=== PATIENT | female | born 1960 | race Caucasian/White ===

== ENCOUNTER → 2017-05-18 16:05 | Outpatient (CLI) | payer MEDICAID, SELFPAY | PROVIDERS: Family Provider Family Medicine; PCP Family Medicine; Visit Provider Obstetrics & Gynecology | DX: R30.0 Dysuria (principal) | CPT/HCPCS: 87086; 87088 ==

== ENCOUNTER → 2017-05-23 08:40 | Outpatient (CLI) | payer MEDICAID, SELFPAY ==
[2017-05-23 10:22] LABS: AST(SGOT) 52 U/L (15-37); Alanine Aminotransfer ALT/SGPT 73 U/L (13-56); Albumin, Serum 3.2 g/dL (3.2-5.0); Alkaline Phosphatase 75 U/L (45-117); Bilirubin, Direct 0.28 mg/dL (0.00-0.30); Cholesterol 200 mg/dL (200); Globulin 3.9 g/dL (2.2-4.2); High Density Lipoprotein 48 mg/dL; Protein, Total 7.1 g/dL (6.4-8.2); Triglycerides 174 mg/dL; Very Low Density Lipoprotein 35 mg/dL (5-40)
== END ==
PROVIDERS: Family Provider Family Medicine; PCP Family Medicine; Visit Provider Nurse Practitioner Family
DX: E11.65 Type 2 diabetes mellitus with hyperglycemia (principal); Z95.5 Presence of coronary angioplasty implant and graft; Z82.49 Family history of ischemic heart disease and other diseases of the circulatory system; Z79.899 Other long term (current) drug therapy; I25.2 Old myocardial infarction; C85.90 Non-Hodgkin lymphoma, unspecified, unspecified site; I25.10 Atherosclerotic heart disease of native coronary artery without angina pectoris; I10 Essential (primary) hypertension; E78.5 Hyperlipidemia, unspecified
CPT/HCPCS: 36415; 80061; 80076

== ENCOUNTER → 2017-11-23 07:44 | Outpatient (CLI) | payer MEDICAID, SELFPAY ==
[2017-11-23 08:17] LABS: Absolute Lymphocyte Count 2.86 X10^3/ul (0.83-4.51); Absolute Neutrophil Count 3.8 X10^3/uL (2.0-7.7); Basophil# 0.04 X10^3/uL; Basophil% 0.5 % (0-1); Eosinophil# 0.33 X10^3/uL; Eosinophils% 4.3 % (0-5); Hematocrit 43.7 % (37-47); Hemoglobin 15.1 g/dl (12.0-15.0); Lymphocyte # 2.86 X10^3/ul (4.0); Lymphocyte % 37.5 % (19-41); Mean Corp Hgb Conc 34.6 g/gl (32-36); Mean Corpuscular Hgb 30.6 pg (27.0-32.0); Mean Corpuscular Volume 88.5 fL (81-99); Mean Platelet Vol. 11.6 fl (6.2-12.0); Monocyte# 0.54 X10^3/uL; Monocyte% 7.1 % (0-10); Neutrophil # 3.82 X10^3/uL (2.7-7.7); Neutrophil % 50.1 % (47-70); Platelet Count 117 K/mm3 (150-450); RBC Distribution Width CV 12.9 % (11.6-14.6); RBC Distribution Width SD 41.8 fl (35.1-43.9); Red Blood Count 4.94 M/mm3 (4.2-5.4); White Blood Count 7.6 K/mm3 (4.4-11.0)
[2017-11-23 08:22] LABS: POSITIVE COUNT NO; POSITIVE DIFFERENTIAL NO; POSITIVE MORPHOLOGY NO
[2017-11-23 08:40] LABS: ALB/GLOB Ratio 0.8 RATIO (0.9-2.4); AST(SGOT) 20 U/L (15-37); Alanine Aminotransfer ALT/SGPT 37 U/L (13-56); Albumin, Serum 2.9 g/dL (3.2-5.0); Alkaline Phosphatase 72 U/L (45-117); Anion Gap 8 (5-15); BUN 18 mg/dL (7-18); BUN/Creat Ratio 31.4 RATIO (10-20); Calcium,Total 9.1 mg/dL (8.5-10.1); Chloride 103 mmol/L (98-107); Cholesterol 194 mg/dL (200); Creatinine, Serum 0.57 mg/dL (0.55-1.02); EST Glomerular Filtration Rate 115 mL/min (>60); Est Glom Filt Rate - Afr Amer 139 mL/min (>60); Globulin 3.7 g/dL (2.2-4.2); Glucose 134 mg/dL (74-106); High Density Lipoprotein 50 mg/dL; Potassium 3.8 mmol/L (3.5-5.1); Protein, Total 6.6 g/dL (6.4-8.2); Sodium Level 140 mmol/L (136-145); Triglycerides 128 mg/dL; Very Low Density Lipoprotein 26 mg/dL (5-40)
[2017-11-23 09:03] LABS: Microalbumin:Creatinine Ratio 602.6 mg/g CRE (<30 mg/g CRE)
[2017-11-23 11:00] LABS: Hemoglobin A1c 12.4 % (4.2-6.3)
== END ==
PROVIDERS: Family Provider Family Medicine; PCP Family Medicine; Referring Provider Family Medicine; Visit Provider Family Medicine
DX: E11.65 Type 2 diabetes mellitus with hyperglycemia (principal); E87.6 Hypokalemia; I10 Essential (primary) hypertension; R53.83 Other fatigue
CPT/HCPCS: 36415; 80053; 80061; 82043; 82570; 83036; 85025

== ENCOUNTER → 2018-06-25 06:49 | Outpatient (CLI) | payer MEDICAID, SELFPAY ==
[2018-05-24 15:08] VITALS: BMI 30.9
--- NOTE | 2018-06-25 09:04 | STRESSREP ---
Stress Test Report Exercise myocardial perfusion stress test 58-year-old lady with a history of chest pain. Patient is status post coronary artery bypass surgery. Stress protocol: Resting EKG demonstrates normal sinus rhythm with a rate of [address]-T wave changes are noted resting blood pressures 148/102 mmHg. The patient exercised according to regular Brendon protocol for total duration of 6 minutes. The maximum heart rate attained was 136 bpm which was 84% of maximum predicted heart rate the maximum workload was 7 metabolic equivalents. At rest there were no ST or T wave changes noted suggest ischemia at peak exercise there was T wave inversions noted in the inferolateral leads with occasional premature ventricular complexes noted. The resting blood pressure was 148/102 with a final blood pressure 192/92 mmHg. No clinical angina was noted the test was terminated due to fatigue. Myocardial perfusion protocol. 13.8 mCi of technetium 99m sestamibi was injected at rest. The patient exercised according to regular Brendon protocol for total duration of 6 minutes at peak exercise 42.7 mCi of technetium 99m sestamibi was injected stress images were obtained stress and rest images were reconstructed in comparing the short axis vertical and horizontal long axis. Gated images were also obtained per Perfusion SPECT analysis: Review of the stress images demonstrate a normal cardiac silhouette size. There is mildly reduced perfusion noted in the mid anterior wall on the stress images. The resting images demonstrate improvement suggestive of mid anterior ischemia present. There is also a small area in the inferior basal wall with reduced perfusion on the stress images which appears to improve on the resting images suggestive of basal inferior ischemia. Patient has a known history of right coronary artery and diagonal vessel not being bypassed. Gated SPECT analysis: The gated ejection fraction is noted to be 48%. Conclusion: Exercise myocardial perfusion stress test with evidence of mild mid anterior ischemia and mild. Basal inferior ischemia. Good functional capacity.
== END ==
PROVIDERS: Family Provider Family Medicine; PCP Family Medicine; Referring Provider Internal Medicine Cardiovascular Disease; Visit Provider Internal Medicine Cardiovascular Disease
DX: Z95.1 Presence of aortocoronary bypass graft (principal)
CPT/HCPCS: 78452; 93017; A9500; A4216

== ENCOUNTER → 2018-07-20 11:57 | Outpatient (CLI) | payer MEDICAID, SELFPAY ==
[2018-07-19 15:21] VITALS: BMI 31.0
--- NOTE | 2018-07-20 12:06 | RAD_ITS ---
STUDY: X-RAY CHEST REASON FOR EXAM: Female, 58 years old. Preop heart catheter. TECHNIQUE: PA and lateral views of the chest. COMPARISON: Portable AP upright chest radiograph 2016. FINDINGS: The lungs are clear and expanded. There is no demonstrated pleural abnormality. Normal size heart. Sternal cerclage wires and vascular clips are present from a prior sternotomy and coronary artery bypass graft procedure (CABG). Normal mediastinum and tara. Normal visualized pulmonary arteries. Normal visualized aortic arch and descending thoracic aorta. Mildly prominent kyphosis and stable mild dextroscoliosis of the lower most thoracic spine. Normal visualized ribs, clavicles, and shoulders. There is no demonstrated abnormality of the visualized soft tissue structures of the upper abdomen. RAD/Chest PA and Lateral IMPRESSION: Prior median sternotomy and CABG. No acute cardiopulmonary disease. Electronically Signed: Vikas Florence MD at 15:01 EDT , Service support ,
[2018-07-20 12:36] LABS: Absolute Lymphocyte Count 2.99 X10^3/ul (0.83-4.51); Absolute Neutrophil Count 3.6 X10^3/uL (2.0-7.7); Basophil# 0.04 X10^3/uL; Basophil% 0.5 % (0-1); Eosinophil# 0.26 X10^3/uL; Eosinophils% 3.5 % (0-5); Hematocrit 46.6 % (37-47); Hemoglobin 15.9 g/dl (12.0-15.0); Lymphocyte # 2.99 X10^3/ul (4.0); Lymphocyte % 40.5 % (19-41); Mean Corp Hgb Conc 34.1 g/gl (32-36); Mean Corpuscular Hgb 30.1 pg (27.0-32.0); Mean Corpuscular Volume 88.3 fL (81-99); Monocyte# 0.49 X10^3/uL; Monocyte% 6.6 % (0-10); Neutrophil % 48.8 % (47-70); Platelet Count 141 K/mm3 (150-450); RBC Distribution Width CV 13.3 % (11.6-14.6); RBC Distribution Width SD 42.8 fl (35.1-43.9); Red Blood Count 5.28 M/mm3 (4.2-5.4); White Blood Count 7.4 K/mm3 (4.4-11.0)
[2018-07-20 12:37] LABS: POSITIVE COUNT NO; POSITIVE DIFFERENTIAL NO; POSITIVE MORPHOLOGY NO
[2018-07-20 12:49] LABS: Anion Gap 4 (5-15); BUN 20 mg/dL (7-18); BUN/Creat Ratio 28.6 RATIO (10-20); Calcium,Total 9.2 mg/dL (8.5-10.1); Chloride 101 mmol/L (98-107); EST Glomerular Filtration Rate 91 mL/min (>60); Est Glom Filt Rate - Afr Amer 110 mL/min (>60); Glucose 380 mg/dL (74-106); Potassium 4.4 mmol/L (3.5-5.1); Sodium Level 136 mmol/L (136-145)
== END ==
PROVIDERS: Family Provider Family Medicine; PCP Family Medicine; Referring Provider Physician Assistant Medical; Visit Provider Physician Assistant Medical
DX: I25.10 Atherosclerotic heart disease of native coronary artery without angina pectoris (principal); I10 Essential (primary) hypertension
CPT/HCPCS: 36415; 71046; 80048; 85025

== ENCOUNTER 2018-07-26 07:07 | Day surgery (SDC) | payer MEDICAID, SELFPAY ==
[2018-05-24 15:08] VITALS: BMI 30.9
--- NOTE | 2018-07-19 04:11 | HP_ITS ---
ADDENDUM by Yesica Narvaez on 07/19/18 at 1611 Addendum entered and electronically signed by FLO Long 07/19/18 16:11: HPI History of Present Illness Surgical H&P: Yes Details: This is a 58-year-old female that presents here today for an updated history and physical for a heart catheterization. She has a history of coronary artery disease with bypass surgery in 2003. She had an BAUM to the LAD and SVG to the left circumflex. Distal RCA and diagonal were not bypassed. She also has a history of hypertension, hyperlipidemia, non-Hodgkin's lymphoma and diabetes Pt sts that since her stress test she thinks that she has had a chest heaviness. She would not necessarily describe this as chest pain. She does not have any worsening SOB. She is active. She does not have any palpitations. She does occasionally have lightheadedness it is difficult for her to say of this is related to low BS or low BP. She has used a BP cuff she thinks that it is low but her BP is high today. In reviewing her medications it appears she is not on losartan or atorvastatin. Assessment & Plan 1. Atherosclerosis of [place] coronary artery of [place] heart without angina pectoris I25.10 CABG x 2 BAUM to LAD and SVG to lateral CX 04/10/2013 Plan - FLO Long Patient did have an abnormal stress test. She is in the process of being scheduled for a heart catheterization to reevaluate this. She will continue with aggressive medical management Orders Orders: Basic Metabolic Profile (BMP) Today CBC W/Diff, Automated Today Chest PA and Lateral Today 2. Essential hypertension I10 Plan - FLO Long Patient is concerned about low and high blood pressure readings. For now we will have her monitor her blood pressure readings. It appears that she is not taking losartan as she should be. Have asked her to call us with an update on what her blood pressure readings are and then we will go ahead and reevaluate this. Patient Instructions - FLO Long Monitor your BP and keep a log of what it is Orders Orders: Basic Metabolic Profile (BMP) Today CBC W/Diff, Automated Today Chest PA and Lateral Today 3. Pure hypercholesterolemia E78.00 Plan - FLO Long It appears that patient is not on cholesterol-lowering medication. Have asked her to go back to her house to make sure that it is not in her other bag that she has at home. If she is not taking we will reevaluate the. Patient Instructions - FLO Long Check to see if you are on a cholesterol lowering medication Plan Detail Additional Comments - FLO Long Patient is scheduled to undergo a heart catheterization with Dr. Pritchard on July 26, 2018. Thank you for allowing us to participate in patient's plan of care, if you have any questions please do not hesitate to call. This note was generated using a voice recognition system and there may be incorrect words, spelling or punctuation errors that were not noted when reviewing the office note prior to saving. Follow Up 1 Month (MMM) 07/19/18 (please print labs and CXR for heart cath so she can have done today, thanks) 07/19/18 1611 <Electronically signed by Yesica ROSSI> Date Yesica Narvaez cc: Fara Bernal DO ~* Signed HPI HPI History of Present Illness Details: This is a 58-year-old female that presents here today for an updated history and physical for a heart catheterization. She has a history of coronary artery disease with bypass surgery in 2003. She had an BAUM to the LAD and SVG to the left circumflex. Distal RCA and diagonal were not bypassed. She also has a history of hypertension, hyperlipidemia, non-Hodgkin's lymphoma and diabetes Pt sts that since her stress test she thinks that she has had a chest heaviness. She would not necessarily describe this as chest pain. She does not have any worsening SOB. She is active. She does not have any palpitations. She does occasionally have lightheadedness it is difficult for her to say of this is related to low BS or low BP. She has used a BP cuff she thinks that it is low but her BP is high today. In reviewing her medications it appears she is not on losartan or atorvastatin. 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 Accompanied by: None Is patient in pain?: No Allergies Penicillins Allergy (Verified 07/19/18 15:23) Unknown lisinopril Adverse Reaction (Intermediate, Verified 07/19/18 15:23) Other hydrocodone bitartrate [From Vicodin] Adverse Reaction (Verified 07/19/18 15:23) Unknown grasses and tree pollen Allergy (Intermediate, Uncoded 03/06/18 15:19) upper respiratory symptoms Medications Aspirin [Aspirin, Baby] 81 mg PO DAILY@0800 01/14/14 [History Confirmed 07/19/18] Insulin Detemir [Levemir (BKC)] 70 units SC BID 01/14/14 [History Confirmed 07/19/18] Magnesium Oxide [Magnesium] 400 mg PO DAILY 08/30/16 [History Confirmed 07/19/18] carvedilol 25 mg tablet 25 mg PO BID 05/19/17 [History Confirmed 07/19/18] insulin aspart (U-100) 100 unit/mL (3 mL) subcutaneous pen 30 unit SC TID ml 05/19/17 [History Confirmed 07/19/18] metformin 1,000 mg tablet 1,000 mg PO BID 05/19/17 [History Confirmed 07/19/18] mometasone-formoterol HFA 200 mcg-5 mcg/actuation aerosol inhaler 2 puff INHALATION BID PRN 05/19/17 [History Confirmed 07/19/18] cholecalciferol (vitamin D3) 50,000 unit capsule 50,000 unit PO .COMPLEX 05/23/17 [History Confirmed 07/19/18] Glipizide [Glucotrol Xl] 2.5 mg PO DAILY 08/31/17 [History Confirmed 07/19/18] cyclobenzaprine 5 mg tablet 5 mg PO TID PRN #30 tab 03/06/18 [Rx Confirmed 07/19/18] losartan 50 mg tablet 50 mg PO DAILY #90 tab 05/24/18 [Rx Confirmed 07/19/18] potassium chloride ER 20 mEq tablet,extended release(part/cryst) PO 30 Days #30 tab 07/19/18 [History Confirmed 07/19/18] PFSH Medical History History of deep venous thrombosis (DVT) of distal vein of left lower extremity (Chronic) Left subclavian vein thrombosis (Chronic) Hyperlipidemia (Chronic) History of non-ST elevation myocardial infarction (NSTEMI) (Chronic) Atherosclerotic heart disease of [place] coronary artery without angina pectoris (Chronic) History of non-Hodgkin's lymphoma (Chronic) Polycystic ovaries (Chronic) IBS (irritable bowel syndrome) (Chronic) HTN (hypertension) (Chronic) Hx of venous thrombosis and embolism (Chronic) Type II diabetes mellitus, uncontrolled (Chronic) Anemia (Acute) Arthritis (Acute) Diabetes (Acute) Incontinent of urine (Acute) Limb weakness (Acute) Shoulder pain (Acute) neck/back pain (Acute) Surgical History H/O coronary artery bypass surgery (Resolved 04/10/13) Family History Father , 65 Diabetes Hypertension cabg Mother , Age 65 Hypertension Renal failure Sister Cancer Sister Diabetes Cardiomegaly Social History Smoking Status: Never smoker alcohol intake: never ROS Const Const: Negative for fatigue, weakness, fever(s) or headache(s) Eyes Eyes: Negative for blind spots, loss of peripheral vision or transient loss of vision ENT ENT: Positive for dizziness; negative for headache(s), tinnitus or Nosebleed/epistaxis Cardio Palpitations: No Edema: None Muscle aches with walking: None Resp Respiratory: Negative for SOB with activity, SOB at rest, SOB orthopnea\SOB lying down or Cough GI GI: Negative nausea, vomiting, heartburn or vomiting blood/hematemesis : Negative for hematuria Musc Musc: Negative for muscle aches/ myalgia Neuro Neuro: Positive for dizziness and lightheadedness; negative for near syncope, syncope, orthostatic symptoms, headache(s) or weakness Tony Hematologic/Lymphatic: Negative for easy bleeding Endo Endo: Negative for fatigue Cardiology Exam Const Appearance: cooperative, no acute distress and well developed Orientation: alert, awake and oriented x3 Head Head: normocephalic and atraumatic Mouth: moist mucous membranes Eyes General: appearance normal, both eyes and all related structures Conjunctivae: conjunctivae normal Pupils: PERRL EOM: EOM intact bilaterally Neck Neck: normal visual inspection, no lymphadenopathy and no JVD Carotids: Negative bruit Neck Mass: Negative Neck mass Chest Chest inspection: normal inspection of the chest and symmetric chest movement Auscultation: Bilateral: Clear to Auscultation Cardio Palpation: normal PMI Rate: regular rate Rhythm: regular rhythm Heart sounds: S1 normal and S2 normal; negative rub, gallop or murmur GI GI: normal to inspection, soft, no hepatosplenomegaly and bowel sounds present; negative tender Neuro General: alert, awake, oriented x3, CN's II-XI intact bilaterally and moves all extremities Extremities Pulses: Normal: Right Posterior Tibial Pulse, Left Posterior Tibial Pulse, Right Radial Pulse, Left Radial Pulse Lower Extremity Edema: None: Bilateral Psych Psychological: normal affect Assessment & Plan 1. Atherosclerosis of [place] coronary artery of [place] heart without angina pectoris I25.10 CABG x 2 BAUM to LAD and SVG to lateral CX 04/10/2013 Plan Patient did have an abnormal stress test. She is in the process of being scheduled for a heart catheterization to reevaluate this. She will continue with aggressive medical management Orders Orders: Basic Metabolic Profile (BMP) Today CBC W/Diff, Automated Today Chest PA and Lateral Today 2. Essential hypertension I10 Plan Patient is concerned about low and high blood pressure readings. For now we will have her monitor her blood pressure readings. It appears that she is not taking losartan as she should be. Have asked her to call us with an update on what her blood pressure readings are and then we will go ahead and reevaluate this. Patient Instructions Monitor your BP and keep a log of what it is Orders Orders: Basic Metabolic Profile (BMP) Today CBC W/Diff, Automated Today Chest PA and Lateral Today 3. Pure hypercholesterolemia E78.00 Plan It appears that patient is not on cholesterol-lowering medication. Have asked her to go back to her house to make sure that it is not in her other bag that she has at home. If she is not taking we will reevaluate the. Patient Instructions Check to see if you are on a cholesterol lowering medication Plan Detail Additional Comments Patient is scheduled to undergo a heart catheterization with Dr. Pritchard on July 26, 2018. Thank you for allowing us to participate in patient's plan of care, if you have any questions please do not hesitate to call. This note was generated using a voice recognition system and there may be incorrect words, spelling or punctuation errors that were not noted when reviewing the office note prior to saving. Follow Up 1 Month (MMM) 07/19/18 (please print labs and CXR for heart cath so she can have done today, thanks) Coding Level of Care Code Off vis,est,level 3 Diagnoses Atherosclerosis of [place] coronary artery of [place] heart without angina pectoris I25.10 ??[place] vs. transplanted heart: [place] heart Essential hypertension I10 ??Hypertension type: essential hypertension Pure hypercholesterolemia E78.00 ??Hyperlipidemia type: pure hypercholesterolemia Coding Level of Care Code Off vis,est,level 3 Diagnoses Atherosclerosis of [place] coronary artery of [place] heart without angina pectoris I25.10 ??[place] vs. transplanted heart: [place] heart Essential hypertension I10 ??Hypertension type: essential hypertension Pure hypercholesterolemia E78.00 ??Hyperlipidemia type: pure hypercholesterolemia Supplemental Info Supplemental Information Stress test in 2019: Exercise myocardial perfusion stress test with evidence of mild mid anterior ischemia and mild. Basal inferior ischemia. Good functional capacity. Labs LDL Cholesterol 118 mg/dL (0-130) 11/23/17 HDL Cholesterol 50 mg/dL (40-) 11/23/17 Triglycerides 128 mg/dL (-199) 11/23/17 VLDL Cholesterol 26 mg/dL (5-40) 11/23/17 Diagnostics Electrocardiogram 12/26/16 Stress Test Nuclear Medicine 06/25/18 Stress Test 06/25/18 Chest X-Ray 12/26/16 07/19/18 1611 <Electronically signed by Yesiac ROSSI> Date Yesica ROSSI
[2018-07-19 15:21] VITALS: BMI 31.0
[2018-07-25 09:29] VITALS: BMI 31.0
--- NOTE | 2018-07-26 09:36 | CL.D_ITS ---
Patient Name: JOSH GRAY Study Date: 07/26/2018 Performing: Sheng Pritchard MD Ht: 64.17 inches 163 cm : 1960 Wt: 180.78 lbs 82 kg Age: 58 Gender: female BSA: 1.88 PROCEDURE(S) PERFORMED [id number]/COR/LV/CABG CLINICAL PROFILE AND INDICATIONS Indications: Suspected CAD Heart Failure: None Stress/Imaging Date: 06/25/2018 CAD Presentations: Stable angina. CONCLUSIONS Severe disease involving the left anterior descending artery, circumflex artery, and right coronary a rtery. Bypass graft to the left anterior descending artery patent but with severe distal disease and bypass graft to the circumflex artery patent. RECOMMENDATIONS Medical therapy DESCRIPTION OF PROCEDURE The patient arrived to the procedure lab. The risks and benefits of the procedure as well as a full d escription of our services here and current unavailability of surgical backup were fully explained to the patient and/or their significant other prior to the catheterization. The Timeout was completed, verifying the correct patient and procedure. The patient's procedural site was prepped and draped in the usual fashion. Local anesthetic was given subcutaneously to left radial region with Lidocaine 2%. Using a modified Seldinger technique, arterial access was obtained via the left radial artery, a 6Fr sheath was inserted. Left internal mammary artery graft to the LAD selective angiography was perfor med in multiple views using a 5 Fr. IM catheter. Left Coronary Artery selective angiography was perfo rmed in multiple views using a 5 Fr. JL4 catheter. Right Coronary Artery selective angiography was th en performed in multiple views using a 5 Fr. 3DRC (Benito) catheter. Saphenous Vein graft to the Circumflex selective angiography was performed in multiple views using a 5 Fr. 3DRC (Markus olivo) catheter. Left Ventriculography was performed in BOOTHE projection using a 5 Fr. Pigtail catheter . LV to AO pullback pressures were then recorded.The arterial sheath was pulled and a TR Band was jesus lied for hemostasis 11cc air CORONARY ANGIOGRAPHY DOMINANCE: Right Dominant LEFT HEART ASSESSMENT Left Ventricular Ejection Fraction: by LV Gram 60 % Normal Left Ventricular systolic function LEFT MAIN: 50 % Stenosis LEFT ANTERIOR DESCENDING ARTERY: PROX LAD: is occluded DISTAL LAD: Diffusely diseased up to 70 % CIRCUMFLEX ARTERY: MID CIRC: is occluded RIGHT CORONARY ARTERY: OSTIAL RCA: is occluded GRAFTS: BAUM graft to the Mid LAD is patent Saphenous Vein graft to the CIRC is patent COLLATERAL FLOW: Collateral flow from Left to Right COMPLICATIONS No Complications PROCEDURE MEDICATIONS Versed 1 mg IV Fentanyl 50 mcg IV Oxygen: 2 L/min via nasal cannula SUMMARY OF HEMODYNAMIC DATA Time AIR REST ECG 07:29:16 AO 123/66 (90) SA 08:36:06 LV 137/3, 8 09:00:22 LV 135/-1, 9 09:01:22 LV 142/1, 14 09:01:28 LVp 143/1, 14 09:01:31 AOp 142/68 (97) 09:01:36 Signed By Sheng Pritchard MD On 07/26/2018 9:35:28 AM Sheng Pritchard MD
== END 2018-07-26 11:40 | disposition home or self-care (01) ==
LOC: CLSP 07:08
PROVIDERS: Family Provider Family Medicine; PCP Family Medicine; Referring Provider Internal Medicine Cardiovascular Disease; Visit Provider Internal Medicine Cardiovascular Disease
DX: I25.10 Atherosclerotic heart disease of native coronary artery without angina pectoris (principal); E11.9 Type 2 diabetes mellitus without complications; I10 Essential (primary) hypertension; E78.5 Hyperlipidemia, unspecified; E28.2 Polycystic ovarian syndrome; K58.9 Irritable bowel syndrome, unspecified; D64.9 Anemia, unspecified; M19.90 Unspecified osteoarthritis, unspecified site; R32 Unspecified urinary incontinence; Z88.0 Allergy status to penicillin; Z88.5 Allergy status to narcotic agent; Z79.82 Long term (current) use of aspirin; Z79.4 Long term (current) use of insulin; Z79.899 Other long term (current) drug therapy; I25.2 Old myocardial infarction; Z86.718 Personal history of other venous thrombosis and embolism; Z85.72 Personal history of non-Hodgkin lymphomas; Z95.1 Presence of aortocoronary bypass graft
CPT/HCPCS: 93459; 99152; 99153; J7040; C1769; C1894; Q9967

== ENCOUNTER 2018-12-13 12:53 | Inpatient (IN) | payer MEDICAID, SELFPAY ==
[2018-10-15 10:59] VITALS: BMI 30.9
[2018-12-13] VITALS (12 sets, daily range): BP systolic 128–203; BP diastolic 81–143; PULSE 78–96; RESP 13–22; TEMP 36.7–37; O2SAT 93–100; BMI 29.3; BMI 28.6; BMI 28.7
--- NOTE | 2018-12-13 13:00 | EKG12_ITS ---
Test Reason : STROKE Blood Pressure : / mmHG Vent. Rate : 087 BPM Atrial Rate : 087 BPM P-R Int : 152 ms QRS Dur : 092 ms QT Int : 374 ms P-R-T Axes : -06 -02 125 degrees QTc Int : 450 ms Normal sinus rhythm Nonspecific ST and T wave abnormality Inferior OH, age undetermined, cannot be excluded Abnormal ECG Confirmed by KIERA GAMEZ, KATIA ([id number]), research editor ALLEN VALDOVINOS ([id number]) on 12/17/2018 9:29:38 AM Referred By: Roosevelt Smith Confirmed By:KATIA QURESHI MD
--- NOTE | 2018-12-13 13:00 | RAD_ITS ---
STUDY: X-RAY CHEST REASON FOR EXAM: Female, 58 years old. History of stroke. TECHNIQUE: Single AP portable view of the chest. COMPARISON: Comparison is made with prior study dated July 20, 2018. FINDINGS: EKG electrodes are seen. The lungs are clear and expanded. There is no demonstrated pleural abnormality. Sternal cerclage wires and vascular clips are present from a prior sternotomy and coronary artery bypass graft procedure (CABG). Normal mediastinum and tara. Normal visualized pulmonary arteries. There is atherosclerotic tortuosity of the aortic arch and descending thoracic aorta. Normal visualized thoracic spine. Normal visualized ribs, clavicles, and shoulders. There is no demonstrated abnormality of the visualized soft tissue structures of the upper abdomen. RAD/Chest 1 View IMPRESSION: No acute abnormality is seen. Electronically Signed: William Hines, at 14:07 EDT , Service support ,
--- NOTE | 2018-12-13 13:00 | CT_ITS ---
STUDY: CT BRAIN WITHOUT CONTRAST REASON FOR EXAM: Female, 58 years old. Possible CVA. RADIATION DOSAGE (If Supplied By Facility): CTDIvol = ( 44.99 ) mGy, DLP = ( 762.36 ) mGycm TECHNIQUE: Transaxial CT imaging of the brain was performed without administration of intravenous contrast material. Individualized dose optimization techniques were used for this CT. COMPARISON: Comparison is made with prior study-October 26, 2014. FINDINGS: Normal soft tissue structures. Normal calvarium. There is mild cerebral atrophy with widening of the extra-axial spaces and ventricular dilatation. Since prior study, there is a 8.6 mm hypodensity in the right centrum semiovale. This most likely represents an old infarct. Normal basal ganglia and thalami. Normal brainstem. Normal cerebellum. There is no intracranial hemorrhage. There are no findings of an acute ischemic infarction. Normal visualized paranasal sinuses. CT/Brain/Head without Contrast IMPRESSION: Chronic involutional changes of the brain. Findings suggestive of very old focal infarct in the right centrum semiovale. N.B. : The above information has been verbally conveyed by William Hines to Adamaris Scott on 12/13/2018 13:21:52 (ET). Electronically Signed: William Hines, at 13:23 EDT , Service support ,
[2018-12-13 13:01] LABS: Bedside Glucose 478 mg/dL (70-110)
--- NOTE | 2018-12-13 13:01 | CT_ITS ---
STUDY: CTA HEAD AND NECK WITH CONTRAST REASON FOR EXAM: Female, 58 years old. Slurred speech. Dysarthria. History of non-Hodgkin's lymphoma. RADIATION DOSAGE (If Supplied By Facility): CTDIvol = ( 20.31 ) mGy, DLP = ( 710.19 ) mGycm TECHNIQUE: CT angiography was performed with a multi-detector CT scanner. Data acquisition was obtained from the skull base through the vertex following intravenous administration of IV 100mL [id number]-370 100. MIP images were reconstructed from the axial data set. Post-processing of the angiographic images was performed, with multiplanar reformation and 3D reconstruction. Individualized dose optimization techniques were used for this CT. COMPARISON: No relevant priors. FINDINGS: Normal bilateral petrous carotid arteries. There is calcified plaque formation of the right cavernous carotid artery, without a cross-sectional luminal stenosis. There is calcified plaque formation of the left cavernous carotid artery, without a cross-sectional luminal stenosis. Normal right A1 segments of the anterior cerebral artery. Normal left A1 segments of the anterior cerebral artery. Normal intact anterior communicating artery (ACOM). Normal bilateral A2 segments of the anterior cerebral arteries. Normal right M1 and M2 segments of the middle cerebral arteries, with a normal M1 bifurcation. Normal left M1 and M2 segments of the middle cerebral arteries, with a normal M1 bifurcation. Normal right posterior communicating artery (PCOM). Normal left posterior communicating artery (PCOM). Normal bilateral vertebral arteries. Normal basilar artery with a normal basilar bifurcation. The visualized bilateral superior cerebellar (SCA) arteries are normal. Normal bilateral P1, P2 and visualized P3 segments of the posterior cerebral arteries. There is no demonstrated aneurysm of the [place] of [place]. There is no demonstrated abnormality of the visualized brain. AORTIC ARCH: Normal visualized aortic arch. Normal origins of the brachiocephalic, left common carotid, and left subclavian arteries. RIGHT CAROTID ARTERIES: Normal right common carotid artery (CCA). Normal right common carotid bulb. There is moderate atherosclerotic plaque formation of the origin of the right internal carotid artery with an estimated stenosis of 50-69% stenosis. Normal visualized cervical portion of the right internal carotid artery. Normal origin of the right external carotid artery (ECA). LEFT CAROTID ARTERIES: Normal left common carotid artery (CCA). Normal left common carotid bulb. There is mild atherosclerotic plaque formation of the origin of the left internal carotid artery with less than 50% cross sectional diameter stenosis. Normal visualized cervical portion of the left internal carotid artery. Normal origin of the left external carotid artery (ECA). VERTEBRAL ARTERIES: Normal bilateral vertebral arteries. CT/CTA Head AND Neck W/ Contrast IMPRESSION: Findings in keeping with a less than 50% stenosis due to atherosclerotic plaques at the left carotid bifurcation. 50-69% narrowing at the origin of the right internal carotid artery due to calcified plaques. N.B. : The above information has been verbally conveyed by William Hines to Adamaris Scott on 12/13/2018 13:29:11 (ET). Electronically Signed: William Hines, at 13:30 EDT , Service support ,
--- NOTE | 2018-12-13 13:04 | NURSING ---
STROKE ALERT CALLED [phone]
--- NOTE | 2018-12-13 13:20 | ED.RN ---
dr. marion is on screen assessing patient.
[2018-12-13 13:31] LABS: Absolute Lymphocyte Count 2.44 X10^3/uL (0.83-4.51); Basophil# 0.07 X10^3/uL; Eosinophil# 0.18 X10^3/uL; Eosinophils% 2.5 % (0-5); Hematocrit 41.9 % (37-47); Hemoglobin 14.4 g/dL (12.0-15.0); Lymphocyte # 2.44 X10^3/ul (4.0); Lymphocyte % 33.3 % (19-41); Mean Corp Hgb Conc 34.4 g/dL (32-36); Mean Corpuscular Hgb 29.9 pg (27.0-32.0); Mean Corpuscular Volume 86.9 fL (81-99); Mean Platelet Vol. 12.2 fl (6.2-12.0); Monocyte# 0.56 X10^3/uL; Monocyte% 7.6 % (0-10); NRBC Flagged by Analyzer 0 % (0-5); Neutrophil # 4.04 X10^3/uL (2.7-7.7); Neutrophil % 55.1 % (47-70); Platelet Count 114 K/mm3 (150-450); RBC Distribution Width CV 12.5 % (11.6-14.6); RBC Distribution Width SD 39.4 fl (35.1-43.9); Red Blood Count 4.82 M/mm3 (4.2-5.4); White Blood Count 7.3 K/mm3 (4.4-11.0)
[2018-12-13] MEDS: 0.9% Normal Saline 1,000 ML 100 ML IV (13:34)
[2018-12-13 13:39] LABS: Prothrombin Time (Protime)PT. 13.3 SECONDS (11.7-14.9)
[2018-12-13 13:40] LABS: Partial Thromboplast Time 24.2 Seconds (24.1-36.2)
[2018-12-13 13:43] LABS: Anion Gap 8 (5-15); BUN 18 mg/dL (7-18); BUN/Creat Ratio 23.1 RATIO (10-20); Calcium,Total 8.9 mg/dL (8.5-10.1); Chloride 96 mmol/L (98-107); Creatinine, Serum 0.78 mg/dL (0.55-1.02); EST Glomerular Filtration Rate 80 mL/min (>60); Est Glom Filt Rate - Afr Amer 97 mL/min (>60); Estimated Creatinine Clearance 67.06 ml/min; Glucose 432 mg/dL (74-106); Potassium 3.9 mmol/L (3.5-5.1); Sodium Level 134 mmol/L (136-145)
--- NOTE | 2018-12-13 14:00 | ED.VISSUMM ---
- ER Visit Summary Date of Service: 12/13/18 Chief Complaint: [Slurred speech] History of Present Illness: The patient is a 58 F [presents to the emergency department with difficulty with her speech that she initially noticed may be around 9:30 AM. Patient states she had a client around 9:00 and did not notice any issue with her speech however around 930 she had another client and noted that she was slurring her words. Patient has at times hard time finding words to speak. She denies headache. Has some discomfort to her left eye. She denies any weakness or paresthesias. Patient does have history of diabetes, hypertension high cholesterol, and coronary artery disease. She denies recent falls or head injury. She denies recent illness. No prior stroke history.] Physical Examination: [HEENT-PERRLA, EOMI. Cranial nerves II through XII grossly intact. TMs clear. Mucous membranes moist. No adenopathy. Cardiovascular-regular rate and rhythm without murmur or ectopy Lungs-clear to auscultation, chest wall stable without crepitus or subcu emphysema Abdomen-normoactive bowel sounds, soft, nontender, no rebound or rigidity, no peritoneal signs. Neuro exam-NIH stroke scale of 1 for dysarthria. Dysarthria is subtle. No focal weakness noted. [id number] and heel underwood testing within normal limits, negative Romberg, negative for drift, fundi benign. Extremities-intact ?4, normal range of motion, normal pulses, atraumatic] Test Results: [CT scan of the brain without contrast was unremarkable. CTs of the head and neck obtained showed 50% stenosis left carotid and 50 to 79% right internal carotid. CBC with differential was unremarkable. Chemistries unremarkable. Glucose was elevated 432. Troponin was less than 0.15. EKG showed sinus rhythm with a ventricular rate of 87 bpm.] Emergency Department Course and Treatment: [Stroke team was called on patient arrival. Patient was evaluated by tele-stroke neurologist who agrees that patient is not a TPA candidate and that she has minimal deficit with an NIH of 1 and patient is beyond the 3-hour window for TPA.] Treatment Plan: [Admit for further work-up of stroke.] Disposition: [Admit] Impression: [CVA Hyperglycemia] This note was generated with [employer]ENTS HTIation software. It may contain incorrect words, spelling, and punctuation that were not noted in review of the chart prior to signing ED Disposition - Plan for ED Patient: Referrals: Fara Bernal DO [Primary Care Provider] -
--- NOTE | 2018-12-13 14:20 | NURSING ---
DR DUGAN IN ER
--- NOTE | 2018-12-13 14:37 | NURSING ---
PCU OBS CVA RITCHIE
--- NOTE | 2018-12-13 15:07 | HP.PCM_ITS ---
Problem List (1) CVA (cerebral vascular accident) Status: Suspected Qualifiers: CVA mechanism: unspecified Qualified Code(s): I63.9 - Cerebral infarction, unspecified History of Present Illness Date of Admission: 12/13/18 Chief Complaint: slurred speech. unsteadiness The patient is a 58 year old F who was in her normal state of health but today started feeling unsteady and was noted to have slurred speech. Symptoms persisted for several hours and she notified 1 of her superiors who directed the patient to the emergency room. Patient underwent a work-up in the emergency room that was unremarkable for any acute stroke. Patient did undergo a CT angiogram that showed 50 to 69% narrowing of the right internal carotid and 50% stenosis of the left internal carotid. Patient was evaluated by the [facility]-stroke who did not feel the patient required TPA. Patient is never had symptoms like this before. Symptoms are slowly improving. 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 Hyperlipidemia (Chronic) History of non-ST elevation myocardial infarction (NSTEMI) (Chronic) 04/08/2016 History of non-Hodgkin's lymphoma (Chronic) Polycystic ovaries (Chronic) IBS (irritable bowel syndrome) (Chronic) Hx of venous thrombosis and embolism (Chronic) Type II diabetes mellitus, uncontrolled (Chronic) Medical History: Medical History (Last Reviewed 12/13/18 @ 15:09 by Roosevelt Smith DO) Essential (primary) hypertension (Chronic) I10 History of deep venous thrombosis (DVT) of distal vein of left lower extremity (Chronic) Z86.718 04/13/2013 per venous duplex Left subclavian vein thrombosis (Chronic) I82.B12 04/13/2013 Hyperlipidemia (Chronic) E78.5 History of non-ST elevation myocardial infarction (NSTEMI) (Chronic) I25.2 04/08/2016 History of non-Hodgkin's lymphoma (Chronic) Z85.72 Polycystic ovaries (Chronic) E28.2 IBS (irritable bowel syndrome) (Chronic) Hx of venous thrombosis and embolism (Chronic) Z86.718 Type II diabetes mellitus, uncontrolled (Chronic) E11.65 Incontinent of urine R32 Limb weakness R29.898 Shoulder pain M25.519 neck/back pain Anemia D64.9 Arthritis M19.90 Type 2 diabetes mellitus E11.9 Allergies Penicillins Allergy (Verified 09/03/18 15:47) Unknown lisinopril Adverse Reaction (Intermediate, Verified 09/03/18 15:47) Other cough hydrocodone bitartrate [From Vicodin] Adverse Reaction (Verified 09/03/18 15:47) Unknown grasses and tree pollen Allergy (Intermediate, Uncoded 09/03/18 15:47) upper respiratory symptoms Home Medications: Ambulatory Orders Medication Instructions Recorded Aspirin [Aspirin, Baby] 81 mg PO DAILY@0800 01/14/14 Magnesium Oxide [Magnesium] 400 mg PO DAILY 08/30/16 carvedilol 25 mg tablet 25 mg PO BID 05/19/17 insulin aspart (U-100) 100 unit/mL 50 unit SC TID ml 05/19/17 (3 mL) subcutaneous pen metformin 1,000 mg tablet 1,000 mg PO DAILY 05/19/17 mometasone-formoterol HFA 200 2 puff INHALATION BID PRN 05/19/17 mcg-5 mcg/actuation aerosol inhaler cholecalciferol (vitamin D3) 50,000 unit PO .COMPLEX 05/23/17 50,000 unit capsule Glipizide [Glucotrol Xl] 2.5 mg PO DAILY 08/31/17 potassium chloride ER 20 mEq 20 meq PO DAILY 30 Days #30 tab 07/19/18 tablet,extended release(part/cryst) isosorbide mononitrate ER 30 mg 30 mg PO DAILY #30 tab 07/26/18 tablet,extended release 24 hr Insulin Glargine,Hum.rec.anlog 70 units SUBCUT BID 09/03/18 [Basaglar Kwikpen U-100] Surgical History: Surgical History (Last Reviewed 12/13/18 @ 15:09 by Roosevelt Smith DO) H/O coronary artery bypass surgery (Resolved) Onset Date: 04/10/13 Z95.1 CABG x 2 BAUM to LAD and SVG to lateral CX 04/10/2013 Atherosclerotic heart disease of kake coronary artery without angina pectoris (Resolved) Onset Date: 07/26/18 I25.10 CABG x 2 BAUM to LAD and SVG to lateral CX 04/10/2013 Smoking Status: Never smoker Tobacco Use: Non-smoker Alcohol: None - *Family History Maternal Family History: Family History (Last Reviewed 12/13/18 @ 15:09 by Roosevelt Smith DO) Father Diabetes Hypertension cabg Mother Hypertension Renal failure Sister Cancer Sister Diabetes Cardiomegaly Review of Systems Constitutional: Denies: Anorexia, Chills, Fever Eyes: Reports: Blurred vision - Chronically but states that she needs new glasses and has had the same pair for the past 3 years.. Denies: Double vision HEENT: Denies: Head Aches, Sinus Congestion, Sinus Drainage Cardiovascular: Denies: Chest Pain, Palpitations Respiratory: Denies: Cough, Shortness of breath at rest, Sputum production Gastrointestinal: Denies: Abdominal Pain, Nausea, Vomiting Genitourinary: Denies: Dysuria Musculoskeletal: Denies: Joint Pain, Joint Tenderness Skin: Denies: Dryness, Jaundice Neurological: Denies: Numbness, Tingling, Focal weakness Hematologic/ Lymphatic: Denies: Easy Bruising, Easy Bleeding, Hx of blood clot Comment: All review systems are negative except for as mentioned above and in the HPI. VTE Information - Inpt Only VTE Present on Admission: No VTE Mechan Device Prophylaxis: None VTE Pharm Prophylaxis ordered?: Yes Patient Problems: Active and Suspected Problems (Last Reviewed 12/13/18 @ 15:09 by Roosevelt Smith DO) CVA (cerebral vascular accident) (Suspected) - Physical Exam Vitals/I&O's: Vital Signs Temp Pulse Resp BP Pulse Ox 37.0 C 88 18 192/88 H 98 12/13/18 12:57 12/13/18 14:27 12/13/18 14:27 12/13/18 14:27 12/13/18 14:27 Oxygen Flow Rate (L/min) 2 Oxygen Delivery Method Room Air Weight: 77.5 kg Body Mass Index (BMI) 29.3 Finger Stick Blood Glucose 478 General: Alert, Cooperative, No apparent distress HEENT: Atraumatic, PERRLA, EOMI, Normocephalic Oral: Moist Mucosa, No Gingival or Mucosal Lesions/ Ulcerations Neck: No Nodes, Thyroid Normal Size and Texture Lungs: Clear to auscultation, Normal air movement, No rhonchi, No wheeze, No rales Cardiovascular: Regular rate, Regular Rhythm, Normal S1, Normal S2, No murmurs Abdomen: Bowel Sounds Present, Soft, Non Tender, Non-Distended, No Hepato- splenomegaly Extremities: No edema, No Calf Tenderness Skin: No rashes, No breakdown Musculoskeletal: No Tenderness to Palpation of Joints or Extremities, No Muscle Wasting Neurological: Cranial nerves II-XII grossly intact, Motor Exam 5/5 strength throughout, Sensory exam intact to light touch and pain, Coordination normal Psych/Mental Status: Normal Affect, Appropriate Laboratory Results 12/13/18 12:55: POC Glucose 478 H* 12/13/18 13:15: WBC 7.3, RBC 4.82, Hgb 14.4, Hct 41.9, MCV 86.9, MCH 29.9, MCHC 34.4, RDW Std Deviation 39.4, RDW Coeff of Dutch 12.5, Plt Count 114 L, MPV 12.2 H , Immature Gran % (Auto) 0.500, Neut % (Auto) 55.1, Lymph % (Auto) 33.3, [place] % (Auto) 7.6, Eos % (Auto) 2.5, Baso % (Auto) 1.0, Absolute Neuts (auto) 4.0, Absolute Lymphs (auto) 2.44, Nucleated RBC % 0 12/13/18 13:15: PT 13.3, INR 1.0, APTT 24.2 12/13/18 13:15: Sodium 134 L, Potassium 3.9, Chloride 96 L, Carbon Dioxide 30.0, Anion Gap 8, BUN 18, Creatinine 0.78, Estim Creat Clear Calc 67.06, Est GFR (MDRD) Af Amer 97, Est GFR (MDRD) Non-Af 80, BUN/Creatinine Ratio 23.1 H, G lucose 432 H, Calcium 8.9, Troponin I < 0.015 Clinical Impression(s) from Imaging Studies Brain CT 12/13/18 13:00 IMPRESSION: Chronic involutional changes of the brain. Findings suggestive of very old focal infarct in the right centrum semiovale. N.B. : The above information has been verbally conveyed by William Hines to Adamaris Scott on 12/13/2018 13:21:52 (ET). Electronically Signed: William Flora, at 13:23 EDT , Service support , ADDENDUM: 12/13/18 1330 IMPRESSION: Chronic involutional changes of the brain. Findings suggestive of very old focal infarct in the right centrum semiovale. N.B. : The above information has been verbally conveyed by William Hines to Adamaris Scott on 12/13/2018 13:21:52 (ET). Electronically Signed: William Hines, at 13:23 EDT , Service support , Chest X-Ray 12/13/18 13:00 IMPRESSION: No acute abnormality is seen. Electronically Signed: William Hines, at 14:07 EDT , Service support , Head/Neck CTA 12/13/18 13:01 IMPRESSION: Findings in keeping with a less than 50% stenosis due to atherosclerotic plaques at the left carotid bifurcation. 50-69% narrowing at the origin of the right internal carotid artery due to calcified plaques. N.B. : The above information has been verbally conveyed by William Hines to Adamaris Scott on 12/13/2018 13:29:11 (ET). Electronically Signed: William Hines, at 13:30 EDT , Service support , ADDENDUM: 12/13/18 1337 IMPRESSION: Findings in keeping with a less than 50% stenosis due to atherosclerotic plaques at the left carotid bifurcation. 50-69% narrowing at the origin of the right internal carotid artery due to calcified plaques. N.B. : The above information has been verbally conveyed by William Hines to Adaamris Scott on 12/13/2018 13:29:11 (ET). Electronically Signed: William Harpbailee, at 13:30 EDT , Service support , ADDENDUM: 12/13/18 1337 IMPRESSION: Findings in keeping with a less than 50% stenosis due to atherosclerotic plaques at the left carotid bifurcation. 50-69% narrowing at the origin of the right internal carotid artery due to calcified plaques. N.B. : The above information has been verbally conveyed by William Hines to Adamaris Scott on 12/13/2018 13:29:11 (ET). Electronically Signed: William Harpyasminchristos, at 13:30 EDT , Service support , Current Medications Sodium Chloride () 1,000 mls @ 100 mls/hr IV .Q10H ONE Stop: 12/13/18 22:59 Last Admin: 12/13/18 13:34 Dose: 100 mls/hr Documented by: Assessment/Plan All Active Problems (Last Reviewed 12/13/18 @ 15:09 by Roosevelt Smith DO) H/O coronary artery bypass surgery (Resolved 04/10/13) Atherosclerotic heart disease of kake coronary artery without angina pectoris (Resolved 07/26/18) 1. Suspected acute stroke versus TIA * Symptoms currently improved does her slurred speech and unsteadiness. Concern is for possible posterior stroke. * Patient has undergone a head CT as well as CT angiogram of the head neck. CT a of the head neck showed 50 to 69% stenosis of the right internal carotid. Unclear if that warrants further additional work-up but will order an MRI and patient does have an acute stroke on that side and patient will require further imaging of the internal carotids with possibly an ultrasound. * Patient already on aspirin. Will add clopidogrel to get further evaluation from the additional work-up. * Physical, occupational and speech therapy * Bedside swallow evaluation * Add high intensity statin * Told patient that I do not know the current status of her neurologist at our facility as of tomorrow. I told patient that she has the option to go to a facility where she could definitively be seen by a neurologist but stated that we would be happy to work with her in regards to evaluating her for stroke here. Patient was comfortable remaining here at this facility. 2. Diabetes mellitus type 2 * Uncontrolled. Blood sugars in the 400s. * At home, she is on glipizide and metformin * I suspect the patient is chronically uncontrolled * Metformin will be held because she did receive IV contrast for the CT angiogram * We will add sliding scale insulin * Check an A1c 3. VTE prophylaxis: Moderate risk. Patient will be on enoxaparin. 4. advanced care planning: Discussed with patient. Patient wishes to be full CODE STATUS at this time. 6. Coronary artery disease: Patient is status post bridge. Patient underwent a left heart catheterization back in July that showed severe disease involving the left anterior descending, circumflex and right coronary artery. Bypass graft to the left anterior descending arteries patent but with severe distal disease and bypass graft to the circumflex artery was patent. Recommend to continue with medical therapy. Follow-up with Dr. Pritchard as outpatient Code Visit Inpatient E&M: 33651 Init Hosp L3
--- NOTE | 2018-12-13 15:49 | MRI_ITS ---
HISTORY: CVACVAunsteady gait, L sided weakness CABG 2. Coronary artery disease. Diabetes. Hypertension. Tonsillectomy. Appendectomy. Vaginal repair. TECHNIQUE: Routine brain MR protocol was performed without gadolinium. COMPARISON: CT scan of the brain from just over 6 hours earlier FINDINGS: # of images incl. paperwork: 275 The focal area measuring 9 mm of decreased density above the right basal ganglia is demonstrated. It is hypointense on T1, hyperintense on T2, and hypointense on diffusion weighted imaging. It is hyperintense on susceptibility weighted imaging. It is hyperintense on the ADC map. Periventricular deep and subcortical white matter disease is trace Brain volume is normal. No acute stroke is present. Paranasal sinuses are clear. There are no masses, herniations, nor deviations. Orbits and globes are normal. The pituitary and sella turcica are not enlarged. Flow is present within major central intracranial arteries. MRI/Brain without Contrast IMPRESSION: No acute ischemia. 9 mm area of old ischemia above the right basal ganglia and the right cerebrum deep white matter.. at 2137 Reported and signed by: Yoshi Walsh MD Electronically Signed: Yoshi Walsh MD at 21:36 EDT Tel , Service support ,
--- NOTE | 2018-12-13 15:49 | ECHOD_ITS ---
Reason For Study: TIA/CVA Procedure This was a 2D Doppler, Color Flow transthoracic echocardiogram. The exam was of adequate technical quality. Exam performed portable in patient room. Left Ventricle Normal LV size. Sigmoid septum. Segmental dysfunction with preserved ejection fraction (see wall motion). The estimated ejection fraction is 60 %. Diastolic function is indeterminate. Infero-Basal: Hypokinetic. Basal inferoseptal: Hypokinetic. Right Ventricle Normal RV size. Normal systolic function. Atria The left atrium is mildly enlarged. Normal right atrium. Hypermobile atrial septum. No doppler evidence for ASD. Bubble contrast study negative for right to left interatrial shunt. Mitral Valve There is mild mitral annular calcification. Extension of the mitral annular calcification onto the base of the posterior mitral valve leaflet. The mitral valve chordae are thickened and/or calcified. Mild (1+) mitral valve insufficiency. Tricuspid Valve Normal tricuspid valve. Mild tricuspid valve insufficiency. Right ventricular systolic pressure estimated to be 23 mmHg. Aortic Valve Trisinus/trileaflet aortic valve. Mild focal aortic valve calcification. Pulmonic Valve The pulmonic valve is not well visualized. Trivial pulmonic valve insufficiency. Great Vessels Normal sized aortic root. Pericardium/Pleural No pericardial effusion. Medication Performed a rapid injection of agitated mix of 9 cc saline and 1cc air to assess for atrial septal defect. MMode/2D Measurements & Calculations LVIDd: 4.8 cm IVSd: 1.5 cm Ao root diam: 2.9 cm LVIDs: 3.3 cm LVPWd: 1.2 cm RVDd: 3.1 cm FS: 31.0 % LAV(MOD-bp): 38.2 ml LVAd ap4: 23.7 cm2 SV(MOD-sp4): 38.2 ml LAV(MOD-bp) Indexed: 20.9 ml/m2 EDV(MOD-sp4): 69.3 ml LAV(MOD-sp2): 49.8 ml EDV(sp4-el): 71.8 ml LAV(MOD-sp4): 24.8 ml LVAs ap4: 14.2 cm2 ESV(MOD-sp4): 31.1 ml ESV(sp4-el): 30.5 ml EF(MOD-sp4): 55.1 % EF(sp4-el): 57.5 % SV(sp4-el): 41.3 ml LA A4 area: 11.1 cm2 LA dimension(2D): 4.0 cm RA A4 area: 12.0 cm2 Doppler Measurements & Calculations MV E max vincent: 59.6 cm/sec Lat Peak E' Vincent: 8.5 cm/sec Med Peak E' Vincent: 4.3 cm/sec MV A max vincent: 79.3 cm/sec E/E' lat: 7.0 E/E' med: 13.8 MV E/A: 0.75 Ao V2 max: 160.0 cm/sec LV V1 max: 96.3 cm/sec PA V2 max: 99.2 cm/sec Ao max P.2 mmHg LV V1 max P.7 mmHg Ao V2 mean: 117.3 cm/sec Ao mean P.9 mmHg Ao V2 VTI: 29.7 cm TR max vincent: 224.6 cm/sec TR max P.2 mmHg Interpretation Summary Segmental dysfunction with preserved ejection fraction (see wall motion). The estimated ejection fraction is 60 %. Sigmoid septum. The left atrium is mildly enlarged. There is mild mitral annular calcification. Extension of the mitral annular calcification onto the base of the posterior mitral valve leaflet. The mitral valve chordae are thickened and/or calcified. Mild (1+) mitral valve insufficiency. Mild tricuspid valve insufficiency. Mild focal aortic valve calcification. Trivial pulmonic valve insufficiency. Right ventricular systolic pressure estimated to be 23 mmHg. Diastolic function is indeterminate. Bubble contrast study negative for right to left interatrial shunt. Ordering Physician: Roosevelt Smith Referring Physician: Fara Bernal Performed By: Janneth Wilcox, SURI, RVT
[2018-12-13 16:18] LABS: Hemoglobin A1c 12.4 % (4.2-6.3)
[2018-12-13] MEDS: Clopidogrel Bisulfate 75 MG Tablet PO (16:44)
[2018-12-13 17:00] LABS: Bedside Glucose 296 mg/dL (70-110)
[2018-12-13] MEDS: Insulin Lispro 100 UNIT/ML INSULN.PEN SC (17:11)
[2018-12-13] MEDS: Insulin Lispro 100 UNIT/ML INSULN.PEN 50 UNIT SC (17:11)
[2018-12-13] MEDS: Budesonide Respules 0.5 MG/2 ML AMPUL.NEB. INHALATION (19:12)
[2018-12-13] MEDS: Albuterol 2.5 MG/3 ML VIAL.NEB. INHALATION (19:12)
[2018-12-13] MEDS: Carvedilol 25 MG Tablet PO (21:28)
[2018-12-13] MEDS: Atorvastatin Calcium 80 MG Tablet PO (21:28)
[2018-12-13] MEDS: Glycerin/Hypromellose/PEG400 15 ml Bottle 2 DRP EACH EYE (21:29)
[2018-12-13 21:50] LABS: Bedside Glucose 221 mg/dL (70-110)
[2018-12-14] VITALS (18 sets, daily range): BP systolic 99–159; BP diastolic 59–92; PULSE 68–87; RESP 15–18; TEMP 36.3–36.7; O2SAT 94–99
[2018-12-14 05:43] LABS: Cholesterol 189 mg/dL (200); High Density Lipoprotein 39 mg/dL; Triglycerides 223 mg/dL; Very Low Density Lipoprotein 45 mg/dL (5-40)
[2018-12-14] MEDS: Budesonide Respules 0.5 MG/2 ML AMPUL.NEB. INHALATION ×2 (07:05→19:26)
[2018-12-14] MEDS: Albuterol 2.5 MG/3 ML VIAL.NEB. INHALATION ×2 (07:05→19:26)
[2018-12-14] MEDS: Insulin Lispro 100 UNIT/ML INSULN.PEN 50 UNIT SC ×3 (08:26→17:02)
[2018-12-14] MEDS: Aspirin 81 MG TAB.CHEW PO (08:26)
[2018-12-14] MEDS: Insulin Lispro 100 UNIT/ML INSULN.PEN SC ×2 (08:27→12:06)
[2018-12-14] MEDS: Carvedilol 25 MG Tablet PO ×2 (08:36→21:26)
[2018-12-14] MEDS: Enoxaparin 40 MG/0.4 ML Syringe SC (08:36)
[2018-12-14] MEDS: Isosorbide Mononitrate 30 MG Tablet PO (08:36)
[2018-12-14] MEDS: Magnesium Oxide 400 MG Tablet PO (08:37)
[2018-12-14] MEDS: Clopidogrel Bisulfate 75 MG Tablet PO (08:37)
[2018-12-14] MEDS: Glycerin/Hypromellose/PEG400 15 ml Bottle 2 DRP EACH EYE (08:38)
[2018-12-14 08:50] LABS: Bedside Glucose 258 mg/dL (70-110)
--- NOTE | 2018-12-14 10:45 | NURSING ---
INFORMED BY LEAD ELECTRICAL ENGINEER THAT PT WAS SWEATY AND WEAKENED WHEN UP TO BR. BLOOD SUGAR CHECKED WITH RESULT OF 157. REQUESTED CHARGE NURSE OBSERVE PT. VITALS OBTAINED, STROKE ASSESSMENT COMPLETED BY CHARGE NURSE. STROKE TEAM CALLED. PT SENT TO CT SCAN.
[2018-12-14 10:56] LABS: Bedside Glucose 157 mg/dL (70-110)
--- NOTE | 2018-12-14 11:08 | CT_ITS ---
STUDY: CT BRAIN WITHOUT CONTRAST REASON FOR EXAM: Female, 58 years old. Possible stroke. RADIATION DOSAGE (If Supplied By Facility): CTDIvol = ( 44.99 ) mGy, DLP = ( 796.11 ) mGycm TECHNIQUE: Transaxial CT imaging of the brain was performed without administration of intravenous contrast material. Individualized dose optimization techniques were used for this CT. COMPARISON: Comparison is made with prior examination dated December 13, 2018. FINDINGS: Normal soft tissue structures. Normal calvarium. There is mild cerebral atrophy with widening of the extra-axial spaces and ventricular dilatation. Stable hypodensity in the right centrum semiovale and compared with prior infarct. Normal basal ganglia and thalami. Normal brainstem. Normal cerebellum. There is no intracranial hemorrhage. There are no findings of an acute ischemic infarction. Normal visualized paranasal sinuses. CT/Brain/Head without Contrast IMPRESSION: Stable examination. N.B. : The above information has been verbally conveyed by William Hines to Baudilio Ruthie on 12/14/2018 11:19:55 (ET). Electronically Signed: William Hines, at 11:22 EDT , Service support ,
--- NOTE | 2018-12-14 11:21 | NURSING ---
Tele med physician examining pt.
--- NOTE | 2018-12-14 11:45 | CASEMGMT ---
A stroke team was called. PAULINO responded. Patient's daughter, son in law, and son were present. PCU real estate asset manager explained what was going to happen. PAULINO introduced self and provided support. Patient's daughter asked about applying for disability. SW printed off information from Social Security website and gave it to her daughter. Explained she can apply by phone, online, or make an appt at the local Social Security office. She told PAULINO a little of the family history. There are 7 kids total. 3 are local, one lives in [facility], one is in [place], and one lives in [place], [place]. Patient and her do not live together. Three of the kids live at home. Patient is under a lot of stress to financially care for 3 children on her own. Patient's does help financially. They have a good relationship even though they are not living together. Patient's and younger 2 children arrived. PAULINO explained what was going on at the moment. Patient returned from CT scan. bulb packer updated family. PAULINO provided emotional support to patient and family. Family was doing well so PAULINO let them know that SW is available should they need more support. Jacklyn CARDOSO FACILITY TECHNICIAN
--- NOTE | 2018-12-14 12:51 | CON.PCM_ITS ---
Problem List (1) Slurred speech Status: Acute Reason for Consult Date of Consultation: 12/14/18 Reason for Consultation: Slurred speech History of Present Illness: The patient is a 58 year old F PMH HTN, HLD, DM, history of non-Hodgkin's lymphoma, history of PE/DVT admitted with slurred speech. Per patient slurred speech started yesterday morning 12/13/2018, on admission the ED documentation NIHSS was 1, patient was not a TPA candidate due to low NIHSS and as she was out of the TPA window per ED documentation, [facility] tele-stroke was consulted who did not recommend TPA per documentation. Later this morning 12/14/2018 again another stroke alert was called as patient had worsening dysarthria, and [facility] telemetry stroke was again consulted per the hospitalist and patient was deemed not to be a TPA candidate. Per nursing documentation blood pressure at that time was 99/59 mmHg. On admission patient's blood pressure was 172/101 mmHg and since admission the highest was 203/143 mmHg. At present patient continues to have dy sarthria, left upper extremity weakness, denies any headache, dizziness, sensory loss, vision disturbances. At baseline patient takes aspirin at home. Lives with her family, does not use cane or walker to ambulate, denies any frequent falls, does drive and does not need any assistance for ADLs. MRI brain without contrast done on admission reported not to show any acute stroke. CTA head/neck reported to show right ICA 50 to 69% stenosis and left ICA less than 50% stenosis. 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 Hyperlipidemia (Chronic) History of non-ST elevation myocardial infarction (NSTEMI) (Chronic) 04/08/2016 History of non-Hodgkin's lymphoma (Chronic) Polycystic ovaries (Chronic) IBS (irritable bowel syndrome) (Chronic) Hx of venous thrombosis and embolism (Chronic) Type II diabetes mellitus, uncontrolled (Chronic) Medical History: Medical History (Last Reviewed 12/13/18 @ 15:09 by Roosevelt Smith DO) Essential (primary) hypertension (Chronic) I10 History of deep venous thrombosis (DVT) of distal vein of left lower extremity (Chronic) Z86.718 04/13/2013 per venous duplex Left subclavian vein thrombosis (Chronic) I82.B12 04/13/2013 Hyperlipidemia (Chronic) E78.5 History of non-ST elevation myocardial infarction (NSTEMI) (Chronic) I25.2 04/08/2016 History of non-Hodgkin's lymphoma (Chronic) Z85.72 Polycystic ovaries (Chronic) E28.2 IBS (irritable bowel syndrome) (Chronic) Hx of venous thrombosis and embolism (Chronic) Z86.718 Type II diabetes mellitus, uncontrolled (Chronic) E11.65 Incontinent of urine R32 Limb weakness R29.898 Shoulder pain M25.519 neck/back pain Anemia D64.9 Arthritis M19.90 Type 2 diabetes mellitus E11.9 Allergies Penicillins Allergy (Verified 09/03/18 15:47) Unknown lisinopril Adverse Reaction (Intermediate, Verified 09/03/18 15:47) Other cough hydrocodone bitartrate [From Vicodin] Adverse Reaction (Verified 09/03/18 15:47) Unknown grasses and tree pollen Allergy (Intermediate, Uncoded 09/03/18 15:47) upper respiratory symptoms Home Medications: Ambulatory Orders Medication Instructions Recorded Aspirin [Aspirin, Baby] 81 mg PO DAILY@0800 01/14/14 Magnesium Oxide [Magnesium] 400 mg PO DAILY 08/30/16 carvedilol 25 mg tablet 25 mg PO BID 05/19/17 mometasone-formoterol HFA 200 2 puff INHALATION BID PRN 05/19/17 mcg-5 mcg/actuation aerosol inhaler cholecalciferol (vitamin D3) 50,000 unit PO .COMPLEX 05/23/17 50,000 unit capsule potassium chloride ER 20 mEq 20 meq PO DAILY 30 Days #30 tab 07/19/18 tablet,extended release(part/cryst) isosorbide mononitrate ER 30 mg 30 mg PO DAILY #30 tab 07/26/18 tablet,extended release 24 hr Atorvastatin Calcium [Lipitor] 80 mg PO QHS #30 tab 12/15/18 Clopidogrel Bisulfate [Plavix] 75 mg PO DAILY #30 tab 12/15/18 Insulin Aspart [Novolog Flexpen] 40 unit SUBCUT TID #1 ml 12/15/18 Insulin Glargine,Hum.rec.anlog 60 units SUBCUT BID #1 insuln.pen 12/15/18 [Basaglar Kwikpen U-100] metFORMIN (XR) [Glucophage Xr] 1,000 mg PO DAILY #60 tab 12/15/18 Surgical History: Surgical History (Last Reviewed 12/13/18 @ 15:09 by Roosevelt Smith DO) H/O coronary artery bypass surgery (Resolved) Onset Date: 04/10/13 Z95.1 CABG x 2 BAUM to LAD and SVG to lateral CX 04/10/2013 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1 F 79 16 124/81 H 97 12/14/18 12:38 12/14/18 12:38 12/14/18 12:38 12/14/18 12:38 12/14/18 12:38 Oxygen Flow Rate (L/min) 2 Oxygen Delivery Method Room Air Weight: 76.204 kg Body Mass Index (BMI) 28.6 Finger Stick Blood Glucose 157 Intake and Output for Last 24 Hours 12/12/18 12/13/18 12/14/18 23:59 23:59 23:59 Intake Total 1700 / 1700 340 / 340 Balance 1700 / 1700 340 / 340 General: Alert HEENT: Normocephalic Neck: Supple Lungs: Normal air movement Cardiovascular: Normal S1, Normal S2 Abdomen: Bowel Sounds Present Extremities: No cyanosis Neurological: - - Conscious, alert, AOA x3, CN II to XII grossly intact except right 7th UMN mild facial palsy, power 5/5 Left upper and lower extremities, 4/5 right UE, 5/5 right LE, plantars right extensor, left flexor, no sensory loss,cerebellar signs-left UE ataxia, gait deferred, reflexes + B/L B/S/T/K/A, No NR, fundus not visualized, dysarthria +, NIHSS 3 at present, mRS 0 at baseline Psych/Mental Status: Normal Affect Laboratory Results 12/13/18 12:55: POC Glucose 478 H* 12/13/18 13:15: WBC 7.3, RBC 4.82, Hgb 14.4, Hct 41.9, MCV 86.9, MCH 29.9, MCHC 34.4, RDW Std Deviation 39.4, RDW Coeff of Dutch 12.5, Plt Count 114 L, MPV 12.2 H , Immature Gran % (Auto) 0.500, Neut % (Auto) 55.1, Lymph % (Auto) 33.3, Andrews % (Auto) 7.6, Eos % (Auto) 2.5, Baso % (Auto) 1.0, Absolute Neuts (auto) 4.0, Absolute Lymphs (auto) 2.44, Nucleated RBC % 0 12/13/18 13:15: PT 13.3, INR 1.0, APTT 24.2 12/13/18 13:15: Sodium 134 L, Potassium 3.9, Chloride 96 L, Carbon Dioxide 30.0, Anion Gap 8, BUN 18, Creatinine 0.78, Estim Creat Clear Calc 67.06, Est GFR (MDRD) Af Amer 97, Est GFR (MDRD) Non-Af 80, BUN/Creatinine Ratio 23.1 H, Glucose 432 H, Calcium 8.9, Troponin I < 0.015 12/13/18 13:15: Hemoglobin A1c 12.4 H 12/13/18 16:38: POC Glucose 296 H 12/13/18 21:20: POC Glucose 221 H 12/14/18 04:55: Triglycerides 223 H, Cholesterol 189, LDL Cholesterol 105, VLDL Cholesterol 45 H, HDL Cholesterol 39 L 12/14/18 08:22: POC Glucose 258 H 12/14/18 10:49: POC Glucose 157 H Current Medications Acetaminophen (Tylenol) 650 mg PO Q6H PRN PRN PRN Reason: Pain Score 1-3/Temp > 100.7 F Albuterol Sulfate (Ventolin Aerosols) 2.5 mg INHALATION Q6HWA.RT [facility] Last Admin: 12/14/18 07:05 Dose: 2.5 mg Documented by: Aspirin (Aspirin, Baby) 81 mg PO DAILY@0800 [facility] Last Admin: 12/14/18 08:26 Dose: 81 mg Documented by: Atorvastatin Calcium (Lipitor) 80 mg PO QHS [facility] Last Admin: 12/13/18 21:28 Dose: 80 mg Documented by: Budesonide (Pulmicort Aerosol) 0.5 mg INHALATION Q12H.RT [facility] Last Admin: 12/14/18 07:05 Dose: 0.5 mg Documented by: Carvedilol (Coreg) 25 mg PO BID [facility] Last Admin: 12/14/18 08:36 Dose: 25 mg Documented by: Clopidogrel Bisulfate (Plavix) 75 mg PO DAILY [facility] Last Admin: 12/14/18 08:37 Dose: 75 mg Documented by: Dextrose (D50w Syringe) 0 gm IV X1 PRN; Protocol PRN Reason: Hypoglycemia Enoxaparin Sodium (Lovenox) 40 mg SC DAILY@1000 [facility] Last Admin: 12/14/18 08:36 Dose: 40 mg Documented by: Ergocalciferol (Vitamin D) 50,000 unit PO TuFr [facility] Last Admin: 12/14/18 08:37 Dose: 50,000 unit Documented by: Glipizide (Glipizide Er) 2.5 mg PO DAILYCM [facility] Last Admin: 12/14/18 08:26 Dose: 2.5 mg Documented by: Glucagon () 1 mg IM .X1 PRN PRN Reason: Hypoglycemia Insulin Glargine (Lantus (Bkc)) 70 units SC BID [facility] Last Admin: 12/14/18 08:37 Dose: 70 units Documented by: Insulin Human Lispro (Humalog Kwikpen (Bkc)) 50 unit SC 0800,1200,1700 [facility] Last Admin: 12/14/18 12:06 Dose: 50 units Documented by: Insulin Human Lispro (Humalog Kwikpen (Bkc)) 0 unit SC TIDAC [facility]; Protocol Last Admin: 12/14/18 12:06 Dose: 1 units Documented by: Isosorbide Mononitrate (Imdur) 30 mg PO DAILY [facility] Last Admin: 12/14/18 08:36 Dose: 30 mg Documented by: Magnesium Oxide (Mag-Ox 400) 400 mg PO DAILY [facility] Last Admin: 12/14/18 08:37 Dose: 400 mg Documented by: Melatonin (Melatonin) 3 mg PO QHS PRN PRN PRN Reason: INSOMNIA Ondansetron HCl (Zofran) 4 mg IV Q8H PRN PRN PRN Reason: NAUSEA/VOMITING Potassium Chloride (K-Dur) 20 meq PO DAILY [facility] Last Admin: 12/14/18 08:36 Dose: 20 meq Documented by: Senna/Docusate Sodium (Senokot-S, Pema-Colace) 2 tablet PO BID PRN PRN PRN Reason: Constipation Sodium Chloride () 10 - 40 ml IV UD PRN PRN Reason: SALINE FLUSH Assessment/Plan All Active Problems (Last Reviewed 12/13/18 @ 15:09 by Roosevelt Smith DO) Slurred speech (Acute) H/O coronary artery bypass surgery (Resolved 04/10/13) 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 Per patient slurred speech started yesterday morning 12/13/2018, on admission the ED documentation NIHSS was 1, patient was not a TPA candidate due to low NIHSS and as she was out of the TPA window per ED documentation, [facility] tele-stroke was consulted who did not recommend TPA per documentation. Later this morning 12/14/2018 again another stroke alert was called as patient had worsening dysarthria, and [facility] telemetry stroke was again consulted per the hospitalist and patient was deemed not to be a TPA candidate. At present patient continues to have dysarthria, left upper extremity weakness, denies any headache, dizziness, sensory loss, vision disturbances. At baseline patient takes aspirin at home. Lives with her family, does not use cane or walker to ambulate, denies any frequent falls, does drive and does not need any assistance for ADLs. MRI brain without contrast done on admission reported not to show any acute stroke. CTA head/neck reported to show right ICA 50 to 69% stenosis and left ICA less than 50% stenosis. Impression R/O Likely posterior circulation stroke but initial MRI brain negative Right ICA 50 to 69% stenosis Plan -Aspirin 81 mg p.o. once daily and Plavix 75 mg p.o. once daily. Dual antiplatelet for 3weeks then switch to single antiplatelet with aspirin. Bleeding risk discussed in detail with the patient -Lipitor 80 mg p.o. nightly -Repeat MRI brain w/w/o contrast -MRI brain images reviewed, CTA head/neck reviewed -HbA1c 12.4, LDL 105 -TTE-EF 60%, LA mildly enlarged, no PFO -EEG -Avoid hypotension -Permissive hypertension for at least 24 to 48 hours -Vascular neurology consult -Better DM control. Endocrinology consult -30-day event recorder on discharge -PT/OT/ST -GI/DVT prophylaxis -Fall precautions -Further medical management per hospitalist team -Please call with questions if any -Follow-up with neurology in 4 weeks -Thank you for allowing us to participate in patient's care and management This note has been generated using [employer] dictation software. It may contain incorrect words, spellings and punctuation that were not noted in the review of the note prior to signing Code Visit Inpatient E&M: 33178 Init Hosp L3
--- NOTE | 2018-12-14 13:04 | MRI_ITS ---
STUDY: MRI BRAIN WITH AND WITHOUT CONTRAST REASON FOR EXAM: Female, 58 years old. New onset slurred speech and facial droop TECHNIQUE: Standardized multiplanar fat and water weighted pulse sequences were obtained. IV Dotarem 15 was administered for the contrast portion of the examination. COMPARISON: 12/13/2018 FINDINGS: Normal size of the ventricles and extra-axial spaces for the patient's age. There are a limited number of small white matter hyperintensities, distributed throughout the deep white matter tracts of the cerebral hemispheres, consistent with mild chronic white matter ischemic changes. Remote infarct in the right saenz radiata. Normal bilateral basal ganglia. Focal acute ischemia is now noted in the left thalamus extending to the left cerebral peduncle. There is no extra-axial fluid accumulation. Normal flow voids within the major intracranial circulation suggesting patency by spin echo criteria. Normal venous enhancement. There is no enhancing intra-axial or extra-axial abnormality. Normal sella turcica, pituitary gland, infundibular stalk, optic chiasm and hypothalamus. Normal tectal plate and pineal gland. Normal cerebellum. Normal basal cisterns. Normal bilateral temporal bones. Normal bilateral internal auditory canals. No demonstrated orbital abnormality, within the constraints of a routine brain study. Left sphenoid sinus disease. Normal calvarium and skull base. Normal visualized soft tissue structures. Normal visualized upper cervical spine. MRI/Brain W/WO Contrast IMPRESSION: Focal acute ischemia is now noted in the left thalamus extending to the left cerebral peduncle. No acute hemorrhage. Electronically Signed: Christopher Ashley MD at 17:19 EDT Tel , Service support ,
--- NOTE | 2018-12-14 14:36 | EEG ---
- Electroencephalogram Date of service 12/14/2018 History EEG is being done in this 58 yr F to rule out seizures EEG Description: This is an 18 channel EEG with 10-20 lead placement system. Bipolar montages, and Referential montages were reviewed. Photic stimulation and Hyperventilation were performed. The posterior dominant rhythm is 10 HZ synchronous, symmetric, reacting to eye opening and closing. Photo stimulation did not elicit normal driving response or any abnormal photoparoxysmal response, Hyperventilation did not elicit any abnormal photoparoxysmal response. Sleep was identified. There is no abnormal background slowing noted. There was no epileptiform discharges or electrographic seizures noted during this recording. EEG Interpretation This is a normal awake and asleep EEG. There is no epileptiform discharges or electrographic seizures noted during the record.
--- NOTE | 2018-12-14 14:51 | CASEMGMT ---
SW completed a PHQ-9 with patient as she may have had a Stroke or TIA. She scored a 6 which indicates mild depression. SW gave patient a list of counselors that are in network with her insurance. She has a lot of family and they are all very supportive. Jacklyn CARDOSO PRODUCT DEVELOPMENT ECOLOGIST
--- NOTE | 2018-12-14 15:47 | NS ---
Pt reports she does not have diabetes self-monitoring supplies at home. Case management following. RDN will notify CM as able. Waleska Osuna RDN, LD
[2018-12-14 17:10] LABS: Bedside Glucose 111 mg/dL (70-110)
--- NOTE | 2018-12-14 17:11 | CCHN_ITS ---
Hospitalist Note Stroke alert note: A stroke alert was called at 11:00 this morning due to the patient having an increase dysarthria and right facial droop, patient had no expressive aphasia, she was accompanied to CT by the stroke team, CT of the brain was performed which did not show an acute stroke, tele-stroke consultation was obtained from [facility], they did not feel that the patient warranted TPA and did not feel the patient had an acute stroke. Patient returned to her room on PCU and plans were made for the patient have repeat MRI this afternoon. Additional note: Neurology (Dr. Khan) was noted to be automotive production worker today, he saw the patient in consultation on PCU and felt that the patient could have had a small stroke, he recommended that the MRI of the brain be repeated with and without contrast and the patient remain on Plavix and aspirin. He also recommended an EEG be performed. At the time of this dictation, patient's MRI is pending, her EEG did not show a seizure focus.
--- NOTE | 2018-12-14 17:14 | PN_ITS ---
Patient Problems: Active and Suspected Problems (Last Reviewed 12/13/18 @ 15:09 by Roosevelt Smith DO) CVA (cerebral vascular accident) (Suspected) Slurred speech (Acute) Subjective: Patient was seen and examined today, her dysarthria has improved today since the stroke team was called at 11:00 this morning, however she still has significant dysarthria. Patient requested her IV be discontinued-is been bothering her arm, and attempt was made to insert another IV in the same arm but it was unsuccessful and so I asked the patient if she was okay with leaving the IV out and she was. MRI of the brain was performed today, it resulted and a positive stroke in the left thalamus extending to the left cerebral peduncle. Patient told me that she has not been taking daily aspirin a day at home, she is now on Plavix and aspirin, I told her that I would have PT OT and speech therapy see her again tomorrow and determine if she was able to go home. I talked briefly with neurology also about her scan. - Physical Exam Vitals/I&O's: Vital Signs Temp Pulse Resp BP Pulse Ox 97.9 F 79 16 128/69 H 94 12/14/18 15:50 12/14/18 15:50 12/14/18 15:50 12/14/18 15:50 12/14/18 15:50 Oxygen Flow Rate (L/min) 2 Oxygen Delivery Method Room Air Weight: 76.204 kg Body Mass Index (BMI) 28.6 Finger Stick Blood Glucose 157 Intake and Output for Last 24 Hours 12/12/18 12/13/18 12/14/18 23:59 23:59 23:59 Intake Total 1700 / 1700 340 / 340 Balance 1700 / 1700 340 / 340 General: Alert, Oriented x3, Cooperative, No apparent distress, Well developed, Well nourished HEENT: Atraumatic, PERRLA, EOMI, Normocephalic Oral: Moist Mucosa Neck: Supple, Trachea Midline, Thyroid Normal Size and Texture Lungs: Clear to auscultation, Normal air movement, No rhonchi, No wheeze, No rales Cardiovascular: Regular rate, Regular Rhythm, Normal S1, Normal S2, No murmurs, PMI Normal, No rub noted, No Gallop Abdomen: Bowel Sounds Present, Soft, Non Tender, Non-Distended Extremities: No clubbing, No cyanosis, No edema, Capillary Refill Less than 3 Seconds Skin: No rashes, No breakdown Neurological: Cranial nerves II-XII grossly intact, Neuro grossly intact, Slurred Speech, Sensory exam intact to light touch and pain Psych/Mental Status: Normal Affect, Appropriate, Alert and oriented to time, place, person, mood and affect Laboratory Results 12/13/18 21:20: POC Glucose 221 H 12/14/18 04:55: Triglycerides 223 H, Cholesterol 189, LDL Cholesterol 105, VLDL Cholesterol 45 H, HDL Cholesterol 39 L 12/14/18 08:22: POC Glucose 258 H 12/14/18 10:49: POC Glucose 157 H 12/14/18 17:00: POC Glucose 111 H Current Medications Acetaminophen (Tylenol) 650 mg PO Q6H PRN PRN PRN Reason: Pain Score 1-3/Temp > 100.7 F Albuterol Sulfate (Ventolin Aerosols) 2.5 mg INHALATION Q6HWA.RT [facility] Last Admin: 12/14/18 13:39 Dose: Not Given Documented by: Aspirin (Aspirin, Baby) 81 mg PO DAILY@0800 [facility] Last Admin: 12/14/18 08:26 Dose: 81 mg Documented by: Atorvastatin Calcium (Lipitor) 80 mg PO QHS [facility] Last Admin: 12/13/18 21:28 Dose: 80 mg Documented by: Budesonide (Pulmicort Aerosol) 0.5 mg INHALATION Q12H.RT [facility] Last Admin: 12/14/18 07:05 Dose: 0.5 mg Documented by: Carvedilol (Coreg) 25 mg PO BID [facility] Last Admin: 12/14/18 08:36 Dose: 25 mg Documented by: Clopidogrel Bisulfate (Plavix) 75 mg PO DAILY [facility] Last Admin: 12/14/18 08:37 Dose: 75 mg Documented by: Dextrose (D50w Syringe) 0 gm IV X1 PRN; Protocol PRN Reason: Hypoglycemia Enoxaparin Sodium (Lovenox) 40 mg SC DAILY@1000 [facility] Last Admin: 12/14/18 08:36 Dose: 40 mg Documented by: Ergocalciferol (Vitamin D) 50,000 unit PO TuFr [facility] Last Admin: 12/14/18 08:37 Dose: 50,000 unit Documented by: Glipizide (Glipizide Er) 2.5 mg PO DAILYCM [facility] Last Admin: 12/14/18 08:26 Dose: 2.5 mg Documented by: Glucagon () 1 mg IM .X1 PRN PRN Reason: Hypoglycemia Insulin Glargine (Lantus (Bkc)) 70 units SC BID [facility] Last Admin: 12/14/18 08:37 Dose: 70 units Documented by: Insulin Human Lispro (Humalog Kwikpen (Bkc)) 50 unit SC 0800,1200,1700 [facility] Last Admin: 12/14/18 17:02 Dose: 50 units Documented by: Insulin Human Lispro (Humalog Kwikpen (Bkc)) 0 unit SC TIDAC [facility]; Protocol Last Admin: 12/14/18 17:03 Dose: Not Given Documented by: Isosorbide Mononitrate (Imdur) 30 mg PO DAILY [facility] Last Admin: 12/14/18 08:36 Dose: 30 mg Documented by: Magnesium Oxide (Mag-Ox 400) 400 mg PO DAILY [facility] Last Admin: 12/14/18 08:37 Dose: 400 mg Documented by: Melatonin (Melatonin) 3 mg PO QHS PRN PRN PRN Reason: INSOMNIA Ondansetron HCl (Zofran) 4 mg IV Q8H PRN PRN PRN Reason: NAUSEA/VOMITING Potassium Chloride (K-Dur) 20 meq PO DAILY [facility] Last Admin: 12/14/18 08:36 Dose: 20 meq Documented by: Senna/Docusate Sodium (Senokot-S, Pema-Colace) 2 tablet PO BID PRN PRN PRN Reason: Constipation Sodium Chloride () 10 - 40 ml IV UD PRN PRN Reason: SALINE FLUSH Medical Necessity - Tobacco Use Smoking Status: Never smoker Tobacco Use: Non-smoker Assessment/Plan All Active Problems (Last Reviewed 12/13/18 @ 15:09 by Roosevelt Smith DO) Slurred speech (Acute) H/O coronary artery bypass surgery (Resolved 04/10/13) Atherosclerotic heart disease of [place] coronary artery without angina pectoris (Resolved 07/26/18) #1 acute ischemic stroke left thalamus and left cerebral peduncle-patient will remain on aspirin and Plavix at this time, she is also receiving a statin, PT and OT as well as speech therapy will work with the patient #2 type 2 diabetes-I will review the patient's medications and make necessary adjustments #3 hyperlipidemia #4 coronary artery disease #5 essential hypertension Code Visit Inpatient E&M: 96189 Init Hosp L3
[2018-12-14] MEDS: Atorvastatin Calcium 80 MG Tablet PO (21:26)
[2018-12-14 23:06] LABS: Bedside Glucose 110 mg/dL (70-110)
[2018-12-15] VITALS (8 sets, daily range): BP systolic 119–142; BP diastolic 71–80; PULSE 72–78; RESP 15–18; TEMP 36.5–36.9; O2SAT 95–99
[2018-12-15] MEDS: Budesonide Respules 0.5 MG/2 ML AMPUL.NEB. INHALATION (07:11)
[2018-12-15] MEDS: Albuterol 2.5 MG/3 ML VIAL.NEB. INHALATION (07:11)
[2018-12-15 08:31] LABS: Bedside Glucose 94 mg/dL (70-110)
[2018-12-15] MEDS: Aspirin 81 MG TAB.CHEW PO (09:52)
[2018-12-15] MEDS: Carvedilol 25 MG Tablet PO (09:53)
[2018-12-15] MEDS: Isosorbide Mononitrate 30 MG Tablet PO (09:54)
[2018-12-15] MEDS: Enoxaparin 40 MG/0.4 ML Syringe SC (09:55)
[2018-12-15] MEDS: Clopidogrel Bisulfate 75 MG Tablet PO (09:56)
[2018-12-15] MEDS: Magnesium Oxide 400 MG Tablet PO (09:56)
--- NOTE | 2018-12-15 10:05 | NURSING ---
Isis,RN spoke with Attending Physician regarding blood sugar this am of 94-pt has Lantus and Humalog scheduled-new orders to hold insulins
[2018-12-15] MEDS: Insulin Lispro 100 UNIT/ML INSULN.PEN 50 UNIT SC (11:42)
[2018-12-15] MEDS: Insulin Lispro 100 UNIT/ML INSULN.PEN SC (11:42)
--- NOTE | 2018-12-15 11:50 | DCINST_ITS ---
- Discharge Diagnoses Current Active Problems: Current Active and Chronic Problems (Last Reviewed 12/13/18 @ 15:09 by Roosevelt Smith DO) Slurred speech (Acute) You will use the following diet at home:: Calorie/Carbohydrate Controlled (specify 1200, 1400, etc) - 1800 ryan Your food should be the consistency of: Regular Your liquids should be the consistency of: Regular/Thin Discharge Activity: Return to Normal Activity Weight Bearing Status: Full weight bearing Allergies/Adverse Reactions: Allergies Penicillins Allergy (Verified 09/03/18 15:47) Unknown lisinopril Adverse Reaction (Intermediate, Verified 09/03/18 15:47) Other cough hydrocodone bitartrate [From Vicodin] Adverse Reaction (Verified 09/03/18 15:47) Unknown grasses and tree pollen Allergy (Intermediate, Uncoded 09/03/18 15:47) upper respiratory symptoms Medications to take at Discharge Aspirin [Aspirin, Baby] 81 mg PO DAILY@0800 01/14/14 Magnesium Oxide [Magnesium] 400 mg PO DAILY 08/30/16 carvedilol 25 mg tablet 25 mg PO BID 05/19/17 mometasone-formoterol HFA 200 mcg-5 mcg/actuation aerosol inhaler 2 puff INHALATION BID PRN 05/19/17 cholecalciferol (vitamin D3) 50,000 unit capsule 50,000 unit PO .COMPLEX 05/23/17 potassium chloride ER 20 mEq tablet,extended release(part/cryst) 20 meq PO DAILY 30 Days #30 tab 07/19/18 isosorbide mononitrate ER 30 mg tablet,extended release 24 hr 30 mg PO DAILY #30 tab 07/26/18 Atorvastatin Calcium [Lipitor] 80 mg PO QHS #30 tab 12/15/18 Clopidogrel Bisulfate [Plavix] 75 mg PO DAILY #30 tab 12/15/18 Insulin Aspart [Novolog Flexpen] 40 unit SC TID #1 ml 12/15/18 Insulin Glargine,Hum.rec.anlog [Basaglar Kwikpen U-100] 60 units SUBCUT BID #1 insuln.pen 12/15/18 metFORMIN (XR) [Glucophage Xr] 1,000 mg PO DAILY #60 tab 12/15/18 The following prescriptions were given: Insulin Glargine,Hum.rec.anlog [Basaglar Kwikpen U-100] 60 units SUBCUT BID #1 insuln.pen metFORMIN (XR) [Glucophage Xr] 1,000 mg PO DAILY #60 tab Transmission Status: Pending to [id number] Atorvastatin Calcium [Lipitor] 80 mg PO QHS #30 tab Transmission Status: Pending to [id number] Insulin Aspart [Novolog Flexpen] 40 unit SC TID #1 ml Clopidogrel Bisulfate [Plavix] 75 mg PO DAILY #30 tab Transmission Status: Pending to [id number] Primary Care Physician: Fara Bernal DO [Primary Care Provider] - Please follow up with your Primary Care Physician in: in one week Test Results: Test results from this visit will be discussed in further detail at your follow- up appointment, if applicable. Please Follow Up With: Leonidas Khan MD When: in 3 weeks
[2018-12-15 12:35] LABS: Bedside Glucose 257 mg/dL (70-110)
--- NOTE | 2018-12-15 13:28 | NURSING ---
This nurse reviewed charting of SN [facility]
--- NOTE | 2018-12-15 15:53 | DS.PCM_ITS ---
Discharge Date and Diagnosis Date of Admission: 12/13/18 Date of Discharge: 12/15/18 - Primary Discharge Diagnosis #1 acute ischemic stroke left thalamus and left cerebral peduncle #2 type 2 diabetes-uncontrolled #3 hyperlipidemia #4 coronary artery disease #5 essential hypertension - Secondary Discharge Diagnosis Chronic Problems (Last Reviewed 12/13/18 @ 15:09 by Roosevelt Smith DO) Essential (primary) hypertension (Chronic) History of deep venous thrombosis (DVT) of distal vein of left lower extremity (Chronic) 04/13/2013 per venous duplex Left subclavian vein thrombosis (Chronic) 04/13/2013 Hyperlipidemia (Chronic) History of non-ST elevation myocardial infarction (NSTEMI) (Chronic) 04/08/2016 History of non-Hodgkin's lymphoma (Chronic) Polycystic ovaries (Chronic) IBS (irritable bowel syndrome) (Chronic) Hx of venous thrombosis and embolism (Chronic) Type II diabetes mellitus, uncontrolled (Chronic) Hospital Course and Treatment Operations: None Procedures: 2-D Echocardiogram Summary of Care Provided: The patient is a 58 year old F was seen in the emergency room at [facility] with chief complaint of slurred speech. Patient also complained that she had a hard time finding words when she tried to speak. Work-up in the emergency room included a CT of the brain without contrast which was unremarkable, CTA of the head and neck showed 50% stenosis in the left carotid and a 50 to 79% stenosis in the right carotid artery. CBC was unremarkable, chemistry panel was remarkable for a glucose of 432. Stroke team was called on the patient upon her arrival to the emergency room, she was evaluated by tele-stroke neurologist who agreed that the patient was not a TPA candidate, her NIH stroke score was 1. Patient was placed into observation status on PCU, she was started on Plavix and aspirin, blood sugars were monitored. Patient was seen by PT and OT and had an echocardiogram performed. The following day, another stroke team was called on the patient when she had increased dysarthria and right facial drooping, again upon evaluation from the [facility] neurologist by tele-stroke protocol, the neurologist declined to give the patient TPA but did not know what would be causing the patient's dysarthria. I found out that neurology was lead fire protection engineer and had them see the patient, neurology felt that the patient did have a stroke and recommended a repeat MRI be performed as well as an EEG. EEG did not show seizure focus, MRI showed an acute ischemic stroke in the left thalamus extending to the left cerebral peduncle. Patient was seen by speech therapy again and placed on a nectar thickened mechanical soft diet. On 12/15/2018, patient was seen and examined: On examination she appeared in good health and spirits. Vital signs as documented. Skin warm and dry and without overt rashes. Neck without JVD. Lungs clear. Heart exam notable for regular rhythm, normal sounds and absence of murmurs, rubs or gallops. Abdomen unremarkable and without evidence of organomegaly, masses, or abdominal aortic enlargement. Extremities nonedematous. Neuro: Cranial nerves II through XII are grossly intact, no focal motor deficits were noted, sensation to light touch and pinprick is intact, patient has dysarthria but is able to communicate properly. Psych: Patient is alert and oriented x3 On 12/15/2018, patient was seen and examined and felt to be in stable condition for discharge home. Patient told this examiner she was not taking aspirin on a daily basis and she was also not taking her insulin as directed sometimes. She was vague about this. I made adjustments in her home diabetes medications at the time of discharge from the hospital. - Physical Exam Vitals/I&O's: Vital Signs Temp Pulse Resp BP Pulse Ox 98.4 F 74 18 119/71 96 12/15/18 11:37 12/15/18 11:37 12/15/18 11:37 12/15/18 11:37 12/15/18 11:37 Oxygen Flow Rate (L/min) 2 Oxygen Delivery Method Room Air Weight: 76.204 kg Body Mass Index (BMI) 28.6 Finger Stick Blood Glucose 157 Intake and Output for Last 24 Hours 12/13/18 12/14/18 12/15/18 23:59 23:59 23:59 Intake Total 1700 / 1700 780 / 780 170 / 170 Balance 1700 / 1700 780 / 780 170 / 170 Laboratory Results 12/14/18 17:00: POC Glucose 111 H 12/14/18 21:24: POC Glucose 110 12/15/18 08:24: POC Glucose 94 12/15/18 11:40: POC Glucose 257 H Discharge Activity: Return to Normal Activity Weight Bearing Status: Full weight bearing Home Medications: Medications to take at Discharge Aspirin [Aspirin, Baby] 81 mg PO DAILY@0800 01/14/14 Magnesium Oxide [Magnesium] 400 mg PO DAILY 08/30/16 carvedilol 25 mg tablet 25 mg PO BID 05/19/17 mometasone-formoterol HFA 200 mcg-5 mcg/actuation aerosol inhaler 2 puff INHALATION BID PRN 05/19/17 cholecalciferol (vitamin D3) 50,000 unit capsule 50,000 unit PO .COMPLEX 05/23/17 potassium chloride ER 20 mEq tablet,extended release(part/cryst) 20 meq PO DAILY 30 Days #30 tab 07/19/18 isosorbide mononitrate ER 30 mg tablet,extended release 24 hr 30 mg PO DAILY #30 tab 07/26/18 Atorvastatin Calcium [Lipitor] 80 mg PO QHS #30 tab 12/15/18 Clopidogrel Bisulfate [Plavix] 75 mg PO DAILY #30 tab 12/15/18 Insulin Aspart [Novolog Flexpen] 40 unit SUBCUT TID #1 ml 12/15/18 Insulin Glargine,Hum.rec.anlog [Basaglar Kwikpen U-100] 60 units SUBCUT BID #1 insuln.pen 12/15/18 metFORMIN (XR) [Glucophage Xr] 1,000 mg PO DAILY #60 tab 12/15/18 Following Prescrptions Were Given to Patient: Insulin Glargine,Hum.rec.anlog [Basaglar Kwikpen U-100] 60 units SUBCUT BID #1 insuln.pen metFORMIN (XR) [Glucophage Xr] 1,000 mg PO DAILY #60 tab Transmission Status: Received by [id number] Atorvastatin Calcium [Lipitor] 80 mg PO QHS #30 tab Transmission Status: Received by [id number] Insulin Aspart [Novolog Flexpen] 40 unit SUBCUT TID #1 ml Clopidogrel Bisulfate [Plavix] 75 mg PO DAILY #30 tab Transmission Status: Received by [id number] Primary Care Physician: Fara Bernal DO [Primary Care Provider] - Please follow up with your Primary Care Physician in: in one week Please Follow Up With: Leonidas Khan MD When: in 3 weeks Please Follow Up With: Fara Bernal DO When: 1 week Disposition: Home Minutes spent on discharge:: 33 Patient Condition:: Stable Medical Necessity - Tobacco Use Smoking Status: Never smoker Tobacco Use: Non-smoker Meaningful Use Info Meaningful Use Diagnoses (Choose all that apply): Ischemic CVA - CVA Therapy Assessed for PT,OT and/or ST?: Yes - Ischemic Stroke Antithrombotic order at d/c?: Yes Dx of Atrial fib/flutter?: No Anticoagulant at discharge?: No Reason anticoagulant not ordered: Treatment not Indicated Statins at discharge?: Yes Primary Dx Acute Ischemic CVA?: Yes IV tPA ordered during stay?: No Reason IV t-PA not ordered: Treatment not Indicated Code Visit Inpatient E&M: 49171 Disch Hosp
--- NOTE | 2018-12-17 11:20 | CASEMGMT ---
This RN CM received a message from pt's [facility] CM, Ericka, requesting update on pt at this time. This RN CM placed a call back to her at this time and left a message advising her that pt was discharged on 12/15/18 with OP therapy script. This RN CM left call back info if CM would like to speak with this RN CM again. SStantolin RN CM
--- NOTE | 2018-12-17 13:23 | CASEMGMT ---
JONH SAMS DC PHONE CALL DC DATE: 12/15/18 DC Disposition: Home with Outpt PT/OT/ST Diagnosis on Discharge: CVA LACE/STRATA: 11/15 Intro role of CM to patient and her son Yoshi via phone. Per Yoshi, Scripts were received for Outpt Speech, Physical and Occupational Therapy. JONH SAMS discussed Outpt therapy options for shonda, Gifty and Ema. They prefer [facility]. Address and # given for [facility] and son will make appt. Appt was also made with PCP for . Pt will need return to work excuse. Discussed this can be received from PCP when she evaluates pt's ability to return to work. Son is agreeable, no further questions. Loni BATESN RN ACM
== END 2018-12-15 13:41 | disposition home or self-care (01) | DRG 45 ==
LOC: ED 14:42 → PCU 12-14 07:11
PROVIDERS: Emergency Provider Emergency Medicine; Family Provider Family Medicine; PCP Family Medicine; Visit Provider Internal Medicine
DX: I63.9 Cerebral infarction, unspecified (principal); R47.1 Dysarthria and anarthria; R29.701 NIHSS score 1; E11.65 Type 2 diabetes mellitus with hyperglycemia; I25.10 Atherosclerotic heart disease of native coronary artery without angina pectoris; I65.23 Occlusion and stenosis of bilateral carotid arteries; E78.5 Hyperlipidemia, unspecified; I10 Essential (primary) hypertension; Z79.82 Long term (current) use of aspirin; Z85.72 Personal history of non-Hodgkin lymphomas; I25.2 Old myocardial infarction; Z95.1 Presence of aortocoronary bypass graft; K58.9 Irritable bowel syndrome, unspecified; Z79.4 Long term (current) use of insulin
CPT/HCPCS: 36415; 70450; 70496; 70498; 70551; 70553; 71045; 80048; 80061; 82962; 83036; 84484; 85025; 85610; 85730; 92523; 92526; 92610; 93005; 93306; 94640; 94762; 95819; 97162; 97165; 97802; 99283; A9575; J7030; Q9967; A4216

== ENCOUNTER → 2019-01-08 14:01 | Outpatient (CLI) | payer MEDICAID, SELFPAY ==
[2018-12-13 22:27] VITALS: BMI 28.6
--- NOTE | 2019-01-08 14:12 | RAD_ITS ---
STUDY: X-RAY CHEST REASON FOR EXAM: Female, 58 years old. Short of breath. Edema. Heart disease. TECHNIQUE: Frontal and lateral views of the chest. COMPARISON: 12/13/2018. FINDINGS: The lungs are clear and expanded. There is no demonstrated pleural abnormality. Normal size heart. Previous CABG. Normal mediastinum and tara. Normal visualized pulmonary arteries. There is atherosclerotic tortuosity of the aortic arch and descending thoracic aorta. Normal visualized thoracic spine. Normal visualized ribs, clavicles, and shoulders. There is no demonstrated abnormality of the visualized soft tissue structures of the upper abdomen. RAD/Chest PA and Lateral IMPRESSION: No acute chest disease. Electronically Signed: Mann Moreau MD at 22:00 EST , Service support ,
[2019-01-08 16:09] LABS: Anion Gap 7 (5-15); BUN 17 mg/dL (7-18); BUN/Creat Ratio 28.5 RATIO (10-20); Calcium,Total 8.8 mg/dL (8.5-10.1); Chloride 108 mmol/L (98-107); EST Glomerular Filtration Rate 109 mL/min (>60); Est Glom Filt Rate - Afr Amer 132 mL/min (>60); Glucose 196 mg/dL (74-106); Potassium 4.1 mmol/L (3.5-5.1); Sodium Level 141 mmol/L (136-145)
[2019-01-08 16:17] LABS: BNP,B-Type NATRIURETIC PEPTIDE 321.6 pg/mL (0-100)
== END ==
PROVIDERS: Family Provider Family Medicine; PCP Family Medicine; Referring Provider Family Medicine; Visit Provider Family Medicine
DX: R06.02 Shortness of breath (principal); I25.10 Atherosclerotic heart disease of native coronary artery without angina pectoris
CPT/HCPCS: 36415; 71046; 80048; 83880

== ENCOUNTER → 2019-01-17 12:42 | Outpatient (CLI) | payer MEDICAID, SELFPAY ==
[2018-12-13 22:27] VITALS: BMI 28.6
[2019-01-17 12:41] LABS: Anion Gap 6 (5-15); BUN 25 mg/dL (7-18); BUN/Creat Ratio 32.5 RATIO (10-20); Calcium,Total 9.4 mg/dL (8.5-10.1); Chloride 104 mmol/L (98-107); Creatinine, Serum 0.77 mg/dL (0.55-1.02); EST Glomerular Filtration Rate 81 mL/min (>60); Est Glom Filt Rate - Afr Amer 99 mL/min (>60); Glucose 307 mg/dL (74-106); Potassium 4.3 mmol/L (3.5-5.1); Sodium Level 139 mmol/L (136-145)
--- NOTE | 2019-01-17 12:43 | RAD_ITS ---
STUDY: SWALLOWING STUDY REASON FOR EXAM: Female, 58 years old. Dysphagia. TECHNIQUE: The examination was performed with Speech Pathology in attendance. Under fluoroscopic observation, the patient ingested thin barium, thick barium, barium pudding, and barium coated cracker. FLUOROSCOPY TIME: 2:00 minutes/seconds. 1868 images were obtained. RADIOLOGIST INVOLVEMENT: Radiologist was present and providing direct supervision. COMPARISON: Comparison is made with prior examination dated January 05, 2015. FINDINGS: The following was observed during swallowing of the various mixtures of barium: Thin Barium: Minimal transient penetration with ingestion of thin liquids. Thick Barium: There was no evidence of aspiration or laryngeal penetration. Barium Pudding: There was no evidence of aspiration or laryngeal penetration. Barium Coated Cracker: There was no evidence of aspiration or laryngeal penetration. RAD/Swallowing Function w/Video IMPRESSION: Minimal transient penetration with ingestion of thin liquids. The swallow study findings were discussed with the patient by the speech pathologist at the conclusion of the examination. Please see speech pathology report for more information and recommendations. Electronically Signed: William Hines, at 14:58 EST , Service support ,
--- NOTE | 2019-01-17 14:35 | SP.MBSS_ITS ---
PRIMARY / SECONDARY DIAGNOSIS: dysphagia REFERRING PHYSICIAN: Dr. Fara Bernal CURRENT DIET: nectar thick liquids/chopped solids DENTITION: Natural Teeth MENTAL STATUS: WFL RESPIRATORY STATUS: O2 via room air PREVIOUS MODIFIED BARIUM SWALLOW STUDY: yes; patient believes less than 5 years ago due to difficulty swallowing bread. REASON FOR REFERRAL: The patient is currently on nectar thick liquids and was referred by speech therapy to determine presence and/or degree of aspiration. MEDICAL HISTORY: The patient is a 58/F with past medical history significant for CVA, essential primary hypertension, DVT, left subclavian vein thrombosis, hyperlipidemia, history of non-ST elevation myocardial infarction (NSTEMI), history of non-Hodgkin's lymphoma, polycystic ovaries, IBS, hx of venous thrombosis and embolism, and type II diabetes mellitus. STUDY FINDINGS: Patient participated in a Modified Barium Swallow (MBS) study on 01/17/2019. Dr. Hines was the radiologist present for this evaluation. This study was recorded in the lateral view and images were sent to PACs for storage. The following consistencies were presented to this patient for analysisof oropharyngeal swallow function: thin liquid, nectar thick liquid, honey thick liquid, pudding, and a regular textured, Lyly Doone cookie. Results of the MBS are as follows: PENETRATION / ASPIRATION SCALE (OLVERA): 1 = does not enter airway 2 = enters airway/above vocal folds/ejected 3 = enters airway/above vocal folds/not ejected 4 = enters airway/contacts vocal folds/ejected 5 = enters airway/contacts vocal folds/not ejected 6 = enters airway/below vocal folds/ejected 7 = enters airway/below vocal folds/not ejected despite effort 8 = enters airway/below vocal folds/no effort PENETRATION / ASPIRATION SCALE (SCORE): 1) thin liquid via teaspoon = 7 2) thin liquid via teaspoon = 2 3) thin liquid via teaspoon with chin tuck = 1 4) thin liquid via single small sip from cup with chin tuck= 2 5) thin liquid via single large sip from cup with no chin tuck = 1 6) nectar thick liquid via large single sip= 4 7) [place] thick liquid via single small sip with chin tuck = 1 8) honey thick liquid via single small sip from cup no chin tuck = 1 9) pudding = 1 10) cookie = 1 IMPRESSION: moderate oropharyngeal dysphagia (R13.12) ORAL PHASE CHARACTERIZED BY: LABIAL SEAL: no labial escape TONGUE CONTROL DURING BOLUS MANIPULATION: cohesive bolus between tongue to palatal seal BOLUS PREPARATION / MASTICATION: timely and efficient chewing and mashing BOLUS TRANSPORT / LINGUAL MOTION: brisk tongue motion ORAL RESIDUE: trace residue lining oral structures PHARYNGEAL PHASE CHARACTERIZED BY: INITIATION OF PHARYNGEAL SWALLOW: bolus head in valleculae at first hyoid excursion SOFT PALATE ELEVATION: no bolus between soft palate and pharyngeal wall LARYNGEAL ELEVATION: partial superior movement of thyroid cartilage/partial approximation of arytenoids cartilage to epiglottic petiole ANTERIOR HYOID EXCURSION: trace anterior movement EPIGLOTTIC MOVEMENT: complete epiglottic inversion LARYNGEAL VESTIBULE CLOSURE AT HEIGHT OF SWALLOW: incomplete laryngeal vestibule closure with narrow column of air/contrast in laryngeal vestibule PHARYNGEAL STRIPPING WAVE: pharyngeal stripping wave present / diminished PHARYNGOESOPHAGEAL SEGMENT OPENING: partial distension and partial duration; partial obstruction of flow TONGUE BASE RETRACTION:trace column of contrast between tongue base and posterior pharyngeal wall PHARYNGEAL RESIDUE: trace residue within or on pharyngeal structures ESOPHAGEAL PHASE CHARACTERIZED BY: ESOPHAGEAL BOLUS CLEARANCE IN THE UPRIGHT POSITION: could not view DIET TEXTURE RECOMMENDATIONS: Will recommend a chopped solid textured, nectar thick liquid diet. COMPENSATORY STRATEGIES RECOMMENDED: Will recommend chin tuck with all liquids, reduced bolus volume, liquid chaser, seated upright at 90 degrees during PO intake, and remain upright for 30-60 minutes post meal (GERD precaution). INTERPRETATION OF RESULTS: The patient presents with moderate oropharyngeal dysphagia (R13.12) secondary to CVA. Oral phase primarily marked by prolonged but effective mastication of solid Lyly Dolis cookie. Trace oral residue remained. Patient reports bread getting stuck when chewing and avoids entirely. Slight delay in swallow onset timing resulting in premature bolus loss with liquids. Pharyngeal phase primarily marked by reduced closure of the airway during deglutition resulting in aspiration of thin liquids via teaspoon with coughing. Afterward, patient reported sensation of scratchiness in throat. Penetration with ejection noted inconsistently with larger single sips of nectar thick liquids and with thin liquids via teaspoon and single sips. Aspiration/penetration attributed to reduced laryngeal elevation and anterior hyoid excursion. All deficits ameliorated with use of chin tuck. RECOMMENDATIONS: The patient requires intensive skilled speech-language intervention targeting continued diet texture management, training and implementation of recommended compensatory strategies, training and implementation of recommended oropharyngeal strengthening exercises to facilitate improved swallow function,training, and patient training targeting meal preparation / thickened liquid preparation. Would consider implementation of the Priest Free Water Protocol (FFWP) to facilitate improved hydration following patient education. Would recommend a repeat modified barium swallow study within 6-8 weeks (if clinically appropriate) to further assess the presence and extent of silent and overt aspiration prior to advancement to thin liquids. ADDITIONAL COMMENTS/RECOMMENDATIONS: Results and recommendations were discussed with the patient immediately following MBS study completion, with the patient verbalizing understanding and agreement with all recommendations and education provided. IMAGE COUNT: [id number] Tamera Delgado M.A., CCC-RADIO CONTROL CRANE OPERATOR Speech Language Pathologist [facility] [address] [place] [address] [phone]
== END ==
PROVIDERS: Family Provider Family Medicine; PCP Family Medicine; Referring Provider Family Medicine; Visit Provider Family Medicine
DX: R13.10 Dysphagia, unspecified (principal); Z86.73 Personal history of transient ischemic attack (TIA), and cerebral infarction without residual deficits; E87.6 Hypokalemia; R06.02 Shortness of breath
CPT/HCPCS: 36415; 74230; 80048; 92611

== ENCOUNTER → 2019-02-14 12:59 | Outpatient (CLI) | payer MEDICAID, SELFPAY ==
[2018-12-13 22:27] VITALS: BMI 28.6
[2019-02-14 16:20] LABS: ALB/GLOB Ratio 0.9 RATIO (0.9-2.4); AST(SGOT) 18 U/L (15-37); Alanine Aminotransfer ALT/SGPT 24 U/L (13-56); Albumin, Serum 3.6 g/dL (3.2-5.0); Alkaline Phosphatase 66 U/L (45-117); Anion Gap 4 (5-15); BUN 23 mg/dL (7-18); BUN/Creat Ratio 30.8 RATIO (10-20); Calcium,Total 9.3 mg/dL (8.5-10.1); Chloride 104 mmol/L (98-107); Creatinine, Serum 0.75 mg/dL (0.55-1.02); EST Glomerular Filtration Rate 84 mL/min (>60); Est Glom Filt Rate - Afr Amer 102 mL/min (>60); Globulin 4.1 g/dL (2.2-4.2); Glucose 80 mg/dL (74-106); Protein, Total 7.7 g/dL (6.4-8.2); Sodium Level 140 mmol/L (136-145)
[2019-02-14 16:43] LABS: BNP,B-Type NATRIURETIC PEPTIDE 151.6 pg/mL (0-100)
== END ==
PROVIDERS: Family Provider Family Medicine; PCP Family Medicine; Visit Provider Family Medicine
DX: E87.6 Hypokalemia (principal); I50.9 Heart failure, unspecified; Z51.81 Encounter for therapeutic drug level monitoring
CPT/HCPCS: 36415; 80053; 83880

== ENCOUNTER → 2019-04-03 20:32 | Outpatient (CLI) | payer MEDICAID, SELFPAY ==
[2018-12-13 22:27] VITALS: BMI 28.6
== END ==
PROVIDERS: Family Provider Family Medicine; PCP Family Medicine; Referring Provider Family Medicine; Visit Provider Family Medicine
DX: G47.30 Sleep apnea, unspecified (principal); G47.10 Hypersomnia, unspecified
CPT/HCPCS: 95810

== ENCOUNTER → 2019-04-08 13:02 | Outpatient (CLI) | payer MEDICAID, SELFPAY ==
[2018-12-13 22:27] VITALS: BMI 28.6
--- NOTE | 2019-04-08 13:00 | SP.MBSS_ITS ---
PRIMARY / SECONDARY DIAGNOSIS: dysphagia (R13.10) REFERRING PHYSICIAN: Dr. Fara Bernal DO CURRENT DIET: regular textures, nectar thickened liquids DENTITION: WFL MENTAL STATUS: sufficient for participation RESPIRATORY STATUS: O2 via room air REASON FOR REFERRAL: The Patient is a 59 year old female referred for a modified barium swallow (MBS) study to objectively assess the Patients oropharyngeal swallow function under fluoroscopy, with a history of post stroke dysphagia with overt aspiration identified under fluoroscopy. MEDICAL HISTORY: Prior cerebrovascular accidents involving the left thalamus and right saenz radiata, non-Hodgkin's lymphoma, non-ST elevation myocardial infarction (NSTEMI), status post coronary artery bypass graft, hypertension, hyperlipidemia, deep venous thrombosis, left subclavian vein thrombosis, arthritis, allergy induced asthma, kidney stones, irritable bowel syndrome, type II diabetes mellitus. PREVIOUS MODIFIED BARIUM SWALLOW STUDY: 01/17/2019 MBS revealed moderate oropharyngeal dysphagia (DSRS: 4: SPS: 5) with overt aspiration of thin liquids. 01/05/2015 MBS revealed swallow function grossly within functional limits (DSRS: 1; SPS: 2), with transient shallow penetration of thin liquids. ADDITIONAL OBJECTIVE ASSESSMENT RESULTS: 12/14/2018 MRI revealed focal acute ischemia is now noted in the left thalamus extending to the left cerebral peduncle; remote infarct in the right saenz radiata. ASSESSMENT PARAMETERS: The Patient participated in a Modified Barium Swallow (MBS) study on 04/08/2019. This study was recorded in the lateral view and images were sent to PACs for storage. Scoring was completed through each trial using the 8- point Penetration-Aspiration Scale (PAS) and summarized via the Videofluoroscopic Dysphagia Scale (VDS) and the Bolus Residue Scale (BRS), with severity scoring through the Dysphagia Severity Rating Scale (DSRS) and the Swallowing Performance Scale (SPS), and recommended diet textures through the International Dysphagia Diet Standardisation Initiative (IDDSI) RESULTS OF THE EVALUATION: The Patient presents with mild oropharyngeal dysphagia (DSRS: 2; SPS: 3) with intermittent shallow transient penetration during ingestion of thin liquids secondary to prior cerebrovascular accidents involving the left thalamus and right saenz radiata. OBJECTIVE ASSESSMENT OF SWALLOW FUNCTION (QUANTITATIVE ? PER TRIAL): PENETRATION / ASPIRATION SCALE (OLVERA): 1 = does not enter airway 2 = enters airway/above vocal folds/ejected 3 = enters airway/above vocal folds/not ejected 4 = enters airway/contacts vocal folds/ejected 5 = enters airway/contacts vocal folds/not ejected 6 = enters airway/below vocal folds/ejected 7 = enters airway/below vocal folds/not ejected despite effort 8 = enters airway/below vocal folds/no effort PENETRATION / ASPIRATION SCALE (SCORE): Thin liquid - 5 mL tsp.: 2 Thin liquids via cup (single sip): 2 Thin liquids via cup (single sip): 1 Thin liquids via cup (single sip): 2 Thin liquids via cup (sequential swallows): 1 Thin liquids via straw (single sip): 1 Thin liquids via straw (sequential swallows): 1 Regular textured cookie: 1 Thin liquids via straw (chin tuck): 1 Thin liquids via straw (chin tuck): 1 Thin liquids via straw (chin tuck): 1 OBJECTIVE ASSESSMENT OF SWALLOW FUNCTION (QUANTITATIVE ? AGGREGATE): VIDEOFLOROSCOPIC DYSPHAGIA SCALE (VDS): LIP CLOSURE: 0 (of 4) Intact BOLUS FORMATION: 0 (of 6) Intact MASTICATION: 0 (of 8) Intact APRAXIA: 0 (of 4.5) None TONGUE TO PALATE CONTACT: 0 (of 10) Intact PREMATURE BOLUS LOSS: 1.5 (of 4.5) <10% ORAL TRANSIT TIME: 3 (of 3) >1.5s TRIGGERING OF PHARYNGEAL SWALLOW: 0 (of 4.5) Normal VALLECULAR RESIDUE: 2 (of 6) <10% LARYNGEAL ELEVATION: 9 (of 9) Impaired PYRIFORM SINUS RESIDUE: 0 (of 13.5) None COATING OF PHARYNGEAL WALL: 0 (of 9) No PHARYNGEAL TRANSIT TIME: 0 (of 6) <1.0s ASPIRATION: 6 (of 12) Supraglottic penetration BOLUS RESIDUE SCALE (BRS): 2 (of 6) residue in valleculae OBJECTIVE ASSESSMENT OF SWALLOW FUNCTION (SEVERITY GRADING): DYSPHAGIA SEVERITY RATING SCALE (DSRS): 2 (mild) SWALLOWING PERFORMANCE SCALE (SPS): 3 (mild) OBJECTIVE ASSESSMENT OF SWALLOW FUNCTION (QUALITATIVE): ORAL PREPARATORY PHASE: sufficient mastication rate and quality; sufficient anterior oral containment during oral manipulation; preserved management of breathing / bolus formation ORAL TRANSITIONAL PHASE: inconsistent mild oral phase swallow onset delay (1- 2 seconds in length) with little to no impact on intake sufficiency; sufficient oral clearance; intermittent premature posterior bolus loss (< 10%) with liquid viscosities. PHARYNGEAL PHASE: inconsistent pharyngeal phase synchrony contributing to trace / shallow transient penetration with thin liquids; mild reduction in anterior hyoid excursion; sufficient / consistent laryngeal vestibule pressure generated to expel penetrated material; no signs of pharyngeal dysmotility; no signs of velopharyngeal impairments. ESOPHAGEAL PHASE: no obvious esophageal phase abnormalities observed. RESPONSE TO STRATEGIES: all deficits managed successfully with reduction in bolus rate / volume adjustments, and execution of the chin tuck posture (via straw). INTERVENTION RECOMMENDATIONS AND CONSIDERATIONS: I would consider continued skilled speech-language intervention as deemed clinically appropriate post follow up with her community development officer, with recommended targets to include continued diet texture management and training / implementation of recommended compensatory strategies; training and implementation of a home based prophylactic swallowing exercise program to promote the highest level of preserved post-stroke swallow functioning; training and implementation of a home oral care protocol to reduce the effects of xerostomia and improve / maintain the integrity of the oral mucosa reducing the risk of aspiration related pulmonary complications; and Patient education regarding stroke associated dysphagia. POST ASSESSMENT EDUCATION: Results and recommendations were discussed with the Patient immediately following MBS completion, with the Patient verbalizing understanding and agreement with all recommendations and education provided. We discussed factors impacting effects of aspiration, to include: the quantity of aspiration, the depth of aspiration (trachea or distal airways), and the physical properties of the aspirate. We discussed consequences of oropharyngeal dysphagia, to include pulmonary complications from tracheobronchial aspiration; inadequate oral intake because of dysphagia; reduced caloric intake resulting in unintentional and potentially medically complicating loss of weight; depression and deterioration in the quality of life, and complications in overall course of care. DIET TEXTURE RECOMMENDATIONS: Will recommend a regular textured (IDDSI: 7), thin liquid diet (IDDSI: 0) diet RECOMMENDED COMPENSATORY STRATEGIES: Consider cutting tougher textures into bite sized pieces, chin tuck (with straw), reduced bolus volume / rate of ingestion, seated upright at 90 degrees during PO intake, remain upright for 30-60 minutes post meal (GERD precaution) IMAGE COUNT: [id number] Willie Pineda M.A., CCC-CORPORATE SERVICES MANAGER, CBIS MBSImP Certified, LSVT Certified [facility] Speech-Language Pathology Department [email or web address]
== END ==
PROVIDERS: PCP Family Medicine; Referring Provider Family Medicine; Visit Provider Family Medicine
DX: R13.10 Dysphagia, unspecified (principal); Z86.73 Personal history of transient ischemic attack (TIA), and cerebral infarction without residual deficits
CPT/HCPCS: 76000; 92611

== ENCOUNTER 2019-04-23 10:30 | Outpatient (RCR) | payer MEDICAID, SELFPAY ==
[2018-12-13 22:27] VITALS: BMI 28.6
--- NOTE | 2018-12-25 13:01 | HP.PTEVAL_ITS ---
Patient's Visit Information JOSH GRAY is a 58 year old F referred to Physical Therapy by Baudilio Hendricks DO with a diagnosis of stroke. Date of Evaluation: 12/25/18 Physical Therapist: RACIEL Hurtado - Visit Plan Frequency: 3x /Week Duration: 4 Weeks Plan: 3X/ week for 4-8 weeks for R LE strengthening, functional activities (stairs, sit to stand, curb steps), stretching of the R LE, gait training, balance activities with HEP - Subjective Findings: Pt reports that 2 weeks ago this she started with slurred speech and she noticed that her writing was not well and she was off balance. 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 They kept her overnight and then on Monday she had a stroke while she was there. The first MRI showed 2 old stroke and then after she had another stroke in the hospital they did another MRI and that showed a new stroke. She reports that she went to the toilet and had the stroke on the toilet cause at that point she did not have use of anything and they got her to her bed. They could not give her the clot buster at that point. She was in the hopital until Monday. She did not have home PT. Her son bought her a R handed stress ball because her R hand was not working very well. She is using a rolling walker most of the time. SHe has not walked far distances because her R leg feels weak and a little SOB.... She is on Plavix and aspirn. She has not been able to schedule an appointment with Neurologist and can only leave a message. She say another Dr in the practice since them... She will be off work for a month and then re-eval after some PT. 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 Pt is very teary eyed/crying..... says that she has 3 kids that live with her and she is seperated. Her family is an hour away. She has a bi-level home with stiars with a railing (on one side). Not driving currently. No falls. some trouble going from sidelying to sitting. She has trouble with washing her hair, trouble with feeding herself. Pt has been having more POSEY (come and go since the hospital)... thinks it is stress from not being able to do what she normally does. Pt reports that she is getting swelling in hand and ankle B but worse on the R. Pt has only slept 2 hours for 2 nights....( legs are uncomfortable and legs feel jerky and they dont want to lay still and pain shoots through them at that time)... a lot of time she has to take Advil to go to sleep. Trouble getting back to sleep. - Pain R leg pain (hip to knee) Pain Intensity (Out of 10): 0 Pain Intensity Range: 5 Comment: with walking - Objective Tinetti 17. Gait: walks with slightly shorter stride, Occassionaly R toe catch, slower pace, arms out to the side with CGA or uses a rolling walker. LE MMT: R hip flex 3-/5, L hip flex 4-/5, R knee ext 4-/5 and L knee ext 4/5, R hip abd 3-/5 and L hip abd 4-/5,. R ankle AROM: to Neutral DF. Sit to stand: needs UE to stand up - Balance Scores Tinetti Balance Score: 8 Tinetti Gait Score: 9 Tinetti Balance & Gait Score: 17 - Goals Goal 1:: I HEP Goal Time Frame: 6-8 Weeks Goal 2:: Increase R LE strength by 1/2 muscle grade ( at time of eval: LE MMT: R hip flex 3-/5, L hip flex 4-/5, R knee ext 4-/5 and L knee ext 4/5, R hip abd 3-/5 and L hip abd 4-/5) Goal Time Frame: 6-8 Weeks Goal 3:: Be able to walk without the walker with a normal gait pattern without LOB and with out R toe drag Goal Time Frame: 6-8 Weeks Goal 4:: Increase Tinetti by 5 points to decrease fall risk to 22 Goal Time Frame: 6-8 Weeks Goal 5:: Stairs: up and down recip with 1 hand rail with minimal SOB - Rehabilitation Potential Rehabilitation Potential: Good - Anticipated Interventions Patient/Client Instruction: Educate patient on: Condition, Plan of Care For the Purpose of:: To decrease swelling/inflammation, To increase ROM, To improve nutrient delivery to tissue, To improve muscle performance and motor function, To improve ability to perform ADL's, To increase tolerance to activity/condition/position, To improve performance and independence with ADL's, To decrease level of supervision to perform tasks, To improve ability of p hysical actions for home/community/work/leisure, To improve gait and locomotor functions, To decrease soft tissue restriction, To increase flexibility/ROM, To improve endurance, To improve balance, To improve safety with gait Therapeutic Exercise to Include: Strength training, Endurance training, Balance training, Postural training, Flexibilty training, Gait and locomotor training, Neuromotor development, Passive ROM, Active ROM For the Purpose of:: To decrease pain, To decrease swelling/inflammation, To increase ROM, To improve nutrient delivery to tissue, To improve muscle performance and motor function, To improve ability to perform ADL's, To increase tolerance to activity/condition/position, To improve performance and independence with ADL's, To decrease level of supervision to perform tasks, To improve ability of physical actions for home/community/work/leisure, To improve gait and locomotor functions, To improve health of tissue, To decrease soft tissue restriction, To increase flexibility/ROM, To improve endurance, To improve balance, To improve safety with gait Functional Training to Include: ADL Training, Gait training For the Purpose of:: To improve gait and locomotor functions Thank you for the opportunity to evaluate your patient. For Medicare and Medicare HMO plans, please review the plan of care and approve it. It will need to be FAXED BACK to us at [phone] for Medicare purposes. For Medicare only, by signing this I certify the plan of care. Please let me know if there are questions or concerns regarding this plan of care. Physician Signature: Date:
--- NOTE | 2018-12-27 11:10 | HP.OTEVAL ---
Patient's Visit Information JOSH GRAY is a 58 year old F, referred to Occupational Therapy by Fara Bernal DO, with a diagnosis of stroke. Date of Evaluation: 12/26/18 Occupational Therapist: Tarsha Story - Subjective Subjective: Pt reports that 2 weeks ago this she started with slurred speech and she noticed that her writing was not well and she was off balance. 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 They kept her overnight and then on Monday she had a stroke while she was there. The first MRI showed 2 old stroke and then after she had another stroke in the hospital they did another MRI and that showed a new stroke. She reports that she went to the toilet and had the stroke on the toilet cause at that point she did not have use of anything and they got her to her bed. They could not give her the clot buster at that point. She was in the hopital until Monday. She did not have home PT. Her son bought her a R handed stress ball because her R hand was not working very well. She is using a rolling walker most of the time. She has not walked far distances because her R leg feels weak and a little SOB.... She is on Plavix and aspirn. She has not been able to schedule an appointment with Neurologist and can only leave a message. She say another Dr in the practice since them... She will be off work for a month. 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 Pt lives w/ 3 children. Bilevel home, 1 step to enter 1 handrail. Pt ambulate with WW long distances and furniture walk other times. Indep w/ BADLs/IADLs prior. No hobbies. Cares for dog, cats, goat and chickens but family able to assist at this time. Tub/shower, shower chair HHS, grab bar, comfort height commode. Pt has PMHx; hx of heart attack, Non hodgkins Lymphoma 2012. - Pain R hand/forearm 2 - Objective Objective/Observation: decreased coordination R UE, increased stiffness and rigidity R UE. - ROM Wrist: R 55/60, L 65/80 ROM Comments: BUE WFL, able to make composite fist R/L hand. - Strength Material Manager: R 7#, L 45# Lateral Pinch: R 5#, L 13# Tripod Pinch: R 4#, L 11# Strength Comments: Generalized MMT R 3+/5, L 4/5 - Edema Other: Slight edema noted R hand - Sensation Sensation Comments: Pt reports numbness/tingling R hand digits to wrist. Monofilament: R 3.84, L 3.61 - Nine Hole Peg Right: 57.8 seconds Left: 30 seconds Comments: Pegs in board only, did not remove pegs for timing - Quick DASH-Disab of Arm,Shoulder& Hand Quick DASH Score: 70.4525 - Goals Goal:: Pt will progress w/ R UE generalized strength 4/5 to assist with meal prep tasks independently by d/c from OT. Pt will progress w/ R hand skid road worker strength from 7lb to 35lb to assist w/ opening containers independently by d/c from OT services. Pt will progress w/ lateral pinch from 5lb to 10lb to assist with grooming and dressing tasks indep by d/c from OT. Goal:: Pt will demo no pain greater than 1/10 R uE at rest and with movement by d/c from OT services. Goal:: Pt will demo legible signature for writing checks or signing papers using adaptive techniques as needed in 3/4 trials Goal:: Pt will be able to complete all fasteners on clothes independently by d/c from OT Goal:: Pt will be educated on R UE HEP with good understanding and demo 100%x by d/c from OT services. - Rehabilitation General Assessment: Pt seen for initial occupational therapy evaluation for new onset stroke afftecting R side. Pt demo decreased R hand coordination, strength and ability to complete all BADLS/IADLs with R hand like normal all indicating a need for skilled OT interventions to increase her R UE strength, coordination, decrease stiffness and pain and increase indep w/ BADLs/IADLs. Rehabilitation Potential: Good - Anticipated Interventions Anticipated Interventions: A/AAROM/PROM, Strengthening, Edema Control, Massage, Triggerpoint Release, Modalities, Joint Protection/Energy Conservation, Fine Motor Coord/Cameron, Neuro Reeducation, ADL Training, Education re assistive Equipment, Education re Diagnosis, Education re Self Massage Techniques, Home Program - Visit Plan Frequency: 2-3x /Week Duration: 6 Weeks General Plan: increase R UE strength and coordination skills, educate on R UE HEP and adaptive technqiues to assist w/ BADL's/IADLs, increase indep w/ BADLs/IADLs, decrease pain R UE. 2-3x/wk x 6 wks TEXT: Thank you for the opportunity to evaluate your patient. For Medicare and Medicare HMO plans, please review the plan of care and approve it. It will need to be FAXED BACK to us at [phone] for Medicare purposes. Please let me know if there are questions or concerns regarding this plan of care. Physician Signature: Date:
--- NOTE | 2019-01-07 12:17 | HP.SP.AD_ITS ---
History - History Date of Eval: 01/07/19 Medical Diagnosis (from RX): CVA Date of Onset of Diagnosis: December 14, 2018 Previous speech therapy: Yes Results: In the hospital: Patient had evaluation and one session. She was 50% intellibible during the session which was on 12/14/18. She was placed on nectar thickened liquids. Other Relevant Medical History/Diagnoses/Surgery: HTN, DVT, left subclavian vein thrombosis, hyperlipidemia, NSTEMI, non-hodgkin's lymphoma, polycystic ovaries, IBS, DMII. 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 Right Hearing Abillity: Normal Left Hearing Abillity: Normal Visual Assistive Devices: Glasses Patients Living Arrangements: With Significant Other Patient Allergies - Allergies Allergies Penicillins Allergy (Verified 09/03/18 15:47) Unknown lisinopril Adverse Reaction (Intermediate, Verified 09/03/18 15:47) Other cough hydrocodone bitartrate [From Vicodin] Adverse Reaction (Verified 09/03/18 15:47) Unknown grasses and tree pollen Allergy (Intermediate, Uncoded 09/03/18 15:47) upper respiratory symptoms Subjective Oral Motor - Subjective Patient Reports: Drooling Facial Drooping: Right Objective Oral Motor - Oral Status Dentition: Missing Teeth Additional: two missing in back upper. - Labial Impairment: WNL Observation at Rest: WNL Closure: WNL Pucker: WFL Retraction: WFL Alternating Pucker/Retraction: WFL Involuntary Movement noted: No - Lingual Impairment: WNL Protrusion: WNL Retraction: WNL Lateralization: WNL Involuntary Movement: No - Jaw Impairment: WNL - Respiratory Status Respiratory Status: Room Air Subjective Dysphagia - Symptoms Reported Symptoms/Problems with: Hx of Pneumonia - Current Diet Solids Current Diet: Regular, Chopped - Current Diet Liquids Current Liquids: [place] Thick Priest free water Protocol: No Objective Dysphagia - Administered by Administered by: Self - Thin Liquids Administred via: Cup Symptoms: Throat Clearing Laryngeal Elevation: Impaired Positioning: Chin Tuck Oral Holding: Yes Duration: Short 1-3 seconds. Gagging: No Patient Report: Patient reports that her throat is a little scratchy - [place] Thickened Liquids Gagging: No - Results Swallowing Within Normal Limits: No Swallowing Diagnosis: Dysphagia Unspecified Dysphagia Assessment - Swallowing Impairment Contributing Factors to Swallowing Impairment: Delayed Swallow Initiation, Reduced Laryngeal Excursion - Impact Impact on Safety & Functioning: Risk for Aspiration, Risk for Inadequate Nutrition/Hydration - Recommendations Modified Barium Swallow/Cookie Swallow Recommended: Yes Swallowing Treatment: Yes - Diet Texture Recommendations Solids Other: Regular Liquids: [place] Thick - Safety Saftey Precautions/Swallowing Recommendations (Check all that Apply): Reduce Distractions, Small Sips & Bites when Eating, No Straw Objective Dysarthira/Motor - Speech Intelligibility Phonemes: WNL Single Words: WNL Phrases: WNL Conversation: Mild - Volume Volume: WNL - Consistency w/Multiple Repetitions Words: WNL Phrases: WNL - Observation Observation of Apraxia of Speech: No Oral Groping for Placement: No Inconsistent Errors: No - Awareness/Strategy Use Uses strategies effectively and consistently to improve intelligibility or listener's understanding of message: Yes - Comments Intelligibility -: Patient was 100% intelligible during today's evaluation. She reported that it gets harder to speak clearly in the evenings and when she is fatigued. Plan - Plan Plan: Speech therapy is recommneded for dysphagia therapy and mild oral motor weakness. - Recommendations MBS: Yes Treatment Warranted: Yes - Frequency Frequency: 1x/Week Duration: 6 Weeks Visits in this POC: 6 - Prognosis Prognosis: Good - Goals that are Established: Determination:: Goals will be added/modified as deemed necessary and appropriate. Therapy will be discontinued when results of re-evaluation indicate therapy is no longer needed or lack of progress has been documented. - Goal #1-5 Goal #1: The Patient will tolerate the least restrictive means of nutrition to facilitate adequate hydration/nutrition with optimum safety and efficiency of swallowing function during P.O. intake without overt signs and symptoms of aspiration. Goal #2: The Patient will demonstrate and utilize recommended velopharyngeal and oropharyngeal strengthening exercises to facilitate improved velopharyngeal and oropharyngeal strength and coordination with minimal cueing and prompting provide by the clinician, across 3 to 3 sessions. Goal #3: MBS recommended. Education - Patient has Indicated that the Following Identified Educational Needs: None The Patient has indicated that they have no educational or learning abilities that may effect their care.: Yes - Patient Instruction Patient Education: Diagnosis, Treatment Plan, Goals Person Taught: Patient Teaching Method: Discussion Response to teaching: Verbalize understanding
--- NOTE | 2019-02-12 11:05 | HP.PTREVAL ---
Fara Bernal, DO, It has been my pleasure to treat JOSH GRAY over the last 9 visits for stroke. Please see the progress note below for an update on the physical therapy plan of care! Subjective: Pt reports that she does not feel like she is ready to go back to work yet. 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 She is still using the cane when she is out and when she has to go long distance cause she does not have full strengrh in her R leg. She is returning to the Dr on cause she is having trouble breathing when laying down and having some swelling again and her weight is going back up again also. She is struggling with junior gup and down 2 flights of stiars. Objective/Function: Gait: walks with a cane usually. Walks with CGA with normal stride length and occ veering but overall good balance. Tinetti: 25. Stairs: Up and down 1 flight with 2 hand rails with verbal cues to go up and down recip. LE MMT: R hip flex 4-/5, L hip flex 4/5, R knee ext 4/5 and L knee ext 4+/5, R hip abd 4-/5 and L hip abd 4/5 Plan Plan: Pt was instructed to go to ER if she continues to have breathing issues. Continue with PT to increase R leg strength and confidence with gait and functional activities and balance to be able to RTW. 3X/ week for 4-8 weeks for R LE strengthening, functional activities (stairs, sit to stand, curb steps), stretching of the R LE, gait training, balance activities with HEP Goals Goal 1:: I HEP Goal Time Frame: 6-8 Weeks Goal Progress: Progressing Goal 2:: Increase R LE strength by 1/2 muscle grade ( at time of eval: LE MMT: R hip flex 3-/5, L hip flex 4-/5, R knee ext 4-/5 and L knee ext 4/5, R hip abd 3-/5 and L hip abd 4-/5) Goal Time Frame: 6-8 Weeks Goal Progress: Progressing Goal 3:: Be able to walk without the walker with a normal gait pattern without LOB and with out R toe drag Goal Time Frame: 6-8 Weeks Goal Progress: Progressing Goal 4:: Increase Tinetti by 5 points to decrease fall risk to 22 Goal Time Frame: 6-8 Weeks Goal Progress: Goal Met Goal 5:: Stairs: up and down recip with 1 hand rail with minimal SOB Goal Progress: Progressing Anticipated Interventions Patient/Client Instruction: Educate patient on: Condition, Plan of Care For the Purpose of:: To decrease swelling/inflammation, To increase ROM, To improve nutrient delivery to tissue, To improve muscle performance and motor function, To improve ability to perform ADL's, To increase tolerance to activity/condition/position, To improve performance and independence with ADL's, To decrease level of supervision to perform tasks, To improve ability of physical actions for home/community/work/leisure, To improve gait and locomotor functions, To decrease soft tissue restriction, To increase flexibility/ROM, To improve endurance, To improve balance, To improve safety with gait Therapeutic Exercise to Include: Strength training, Endurance training, Balance training, Postural training, Flexibilty training, Gait and locomotor training, Neuromotor development, Passive ROM, Active ROM For the Purpose of:: To decrease pain, To decrease swelling/inflammation, To increase ROM, To improve nutrient delivery to tissue, To improve muscle performance and motor function, To improve ability to perform ADL's, To increase tolerance to activity/condition/position, To improve performance and independence with ADL's, To decrease level of supervision to perform tasks, To improve ability of physical actions for home/community/work/leisure, To improve gait and locomotor functions, To improve health of tissue, To decrease soft tissue restriction, To increase flexibility/ROM, To improve endurance, To improve balance, To improve safety with gait Functional Training to Include: ADL Training, Gait training For the Purpose of:: To improve gait and locomotor functions Please do not hesitate to contact me at [phone] by phone or if you have questions or concerns regarding this new plan of care! Sincerely, Sophia Pérez MPT
--- NOTE | 2019-02-12 14:26 | OTREVAL_ITS ---
Fara Bernal DO, It has been my pleasure to treat JOSH GRAY over the last 10 visits for stroke. Please see the progress note below for an update on the occupational therapy plan of care! Subjective: Pt arrived stating 5/10 pain R shoulder with movement and 2/10 pain at rest. Pt states going to dr on because legs are swelling bad again and hard to breathe. Objective/Function: Pt has progressed with R UE strength from 7# to 21#. Pt has progressed with R hand coordination picking up variety of objects however still continues to have difficulty with opening containers and coins and specific small objects. Pt has decreased with her lateral pinch from 5# to 4# and tripod pinch from 4# to 3#. Pt continues to demo good ROM of R shoulder WFL, but continues to have increaed pain at rest and movement of R UE. Pt progressing with writing her signature with a regular pen and able to manipulate fasters. Pt continues to have diffiuclty with cutting food and using her fork to gather food to get to her mouth. Pt would continue to benefit from direct OT services to increase her indep w/ self care tasks, be able to cut food independently, increase coordination skills to increase indep w/ BADLs and R UE strength to assist w/ BADLs. Rec 2x/wk x 6 wks. R gymnastics instructor strength 21#. R lateral pinch 4#. R tripod pinch 3#. Nine Hole Peg test 49 sec R UE. Applied moist heat to R shoulder while completing R hand strengthening exercises. Plan Frequency: 1-2x /Week Duration: 6 Weeks Plan: rec further OT to increase strength and coordination of R UE. Goals - Goals Goal:: Pt will progress w/ R UE generalized strength 4/5 to assist with meal prep tasks independently by d/c from OT. Pt will progress w/ R hand gymnastics instructor strength from 7lb to 35lb to assist w/ opening containers independently by d/c from OT services. Pt will progress w/ lateral pinch from 5lb to 10lb to assist with grooming and dressing tasks indep by d/c from OT. Goal:: Pt will demo no pain greater than 1/10 R uE at rest and with movement by d/c from OT services. Goal:: Pt will demo legible signature for writing checks or signing papers using adaptive techniques as needed in 3/4 trials Goal:: Pt maynor demo increase R hand coordination and strength to cut food and gather food on fork to get to her mouth independently by d/c form OT. Goal:: Pt will be able to complete all fasteners on clothes independently by d/c from OT Goal:: Pt will be educated on R UE HEP with good understanding and demo 100%x by d/c from OT services. Anticipated Interventions Anticipated Interventions: A/AAROM/PROM, Strengthening, Edema Control, Massage, Triggerpoint Release, Modalities, Joint Protection/Energy Conservation, Fine Motor Coord/Cameron, Neuro Reeducation, ADL Training, Education re assistive Equipment, Education re Diagnosis, Education re Self Massage Techniques, Home Program Please do not hesitate to contact me at [phone] by phone or if you have questions or concerns regarding this new plan of care! Sincerely, Tarsha Story
--- NOTE | 2019-03-27 11:02 | HP.PTREVAL ---
Fara Bernal, DO, It has been my pleasure to treat JOSH GRAY over the last 15 visits for stroke. Please see the progress note below for an update on the physical therapy plan of care! Subjective: Pt reports that she feels that somedays she feels that she is getting better and on other days not so much. This morning she felt that she was doing everything in slow motion today and that her body was not working right. Somedays the walking is fine and somedays she feels that she is dragging everything. She reports that she can not reach up onto a shelf like she used too. She is still seeing OT. SHe feels that her R leg is not working so good but not sure how much is from the arthritis and how much from the stroke. She can not stand on her R leg very long cause it hurts. She saw the Dr last week. She is off work and on FMLA. Pt reports that she is still having breathing issues and she also complains of more back pain during her PT treatment sessions today. Objective/Function: Tinetti 26. LE MMT: R hip flex 4-/5, R knee ext 4-/5, R knee flex 4/5, R hip abd 4-/5. FGA:17. Gait: walks with no toe drag, occ veering, and slightly decreased stride length. Feel that pt is limited also at this time by her back pain. Plan Plan: 1-2X/ week for 5 visits for HEP for LE strengthening with pictures and working on higher level functional balance such as walking with head turns, curb steps, stepping over objects with HEP. Goals Goal 1:: I HEP Goal Time Frame: 6-8 Weeks Goal Progress: Progressing Goal 2:: Increase R LE strength by 1/2 muscle grade ( at time of eval: LE MMT: R hip flex 3-/5, L hip flex 4-/5, R knee ext 4-/5 and L knee ext 4/5, R hip abd 3-/5 and L hip abd 4-/5) Goal Time Frame: 6-8 Weeks Goal Progress: Progressing Goal 3:: Be able to walk without the walker with a normal gait pattern without LOB and with out R toe drag Goal Time Frame: 6-8 Weeks Goal Progress: Progressing Goal 4:: Increase Tinetti by 5 points to decrease fall risk to 22 Goal Time Frame: 6-8 Weeks Goal Progress: Goal Met Goal 5:: Stairs: up and down recip with 1 hand rail with minimal SOB Goal Progress: Goal Met Goal 6:: Increase FGA score by 3 points to decrease fall risk Goal Time Frame: 2-4 Weeks Anticipated Interventions Patient/Client Instruction: Educate patient on: Condition, Plan of Care For the Purpose of:: To decrease swelling/inflammation, To increase ROM, To improve nutrient delivery to tissue, To improve muscle performance and motor function, To improve ability to perform ADL's, To increase tolerance to activity/condition/position, To improve performance and independence with ADL's, To decrease level of supervision to perform tasks, To improve ability of physical actions for home/community/work/leisure, To improve gait and locomotor functions, To decrease soft tissue restriction, To increase flexibility/ROM, To improve endurance, To improve balance, To improve safety with gait Therapeutic Exercise to Include: Strength training, Endurance training, Balance training, Postural training, Flexibilty training, Gait and locomotor training, Neuromotor development, Passive ROM, Active ROM For the Purpose of:: To decrease pain, To decrease swelling/inflammation, To increase ROM, To improve nutrient delivery to tissue, To improve muscle performance and motor function, To improve ability to perform ADL's, To increase tolerance to activity/condition/position, To improve performance and independence with ADL's, To decrease level of supervision to perform tasks, To improve ability of physical actions for home/community/work/leisure, To improve gait and locomotor functions, To improve health of tissue, To decrease soft tissue restriction, To increase flexibility/ROM, To improve endurance, To improve balance, To improve safety with gait Functional Training to Include: ADL Training, Gait training For the Purpose of:: To improve gait and locomotor functions Please do not hesitate to contact me at [phone] by phone or if you have questions or concerns regarding this new plan of care! Sincerely, RACIEL Hurtado
--- NOTE | 2019-05-29 11:16 | HP.PTDCSUM ---
It has been my pleasure to treat JOSH GRAY referred by Dr. Fara Bernal DO, with the diagnosis of stroke for a total of 20 visit(s). Discharge Date: 04/23/19 Please see the following information for a summary of their discharge status. Subjective: Pt feels that she is 75% better. She does not have a Dr appointmet for awhile. She wants to go back to work but not sure she can. 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 She has trouble bending over and seems to get weaker when doing that. She feels that her balance is ok for the most part and she gets tripped up if she has to step over things or misjusdges how far to step over. She did fall down her steps 3 weeks ago. Pt complains not being able to button shirts and raise arms overherad R leg pain (hip to knee) Pain Intensity (Out of 10): 0 R shoulder Pain Intensity (Out of 10): 3 LB and tail bone Pain Intensity (Out of 10): 6 L LE Pain Intensity (Out of 10): 0 % Improvement: 75 Objective/Function: LE MMT: R hip flex 4-/5 and L hip flex 4/5, B knee ext 4/5, B knee flex 4/5, R hip abd 4-/5 and L hip abd 4/5. FGA: . Gait: walks with a normal gait pattern except for an occassional R toe/foot scuff on the floor Goal 1:: I HEP Goal Progress: Progressing Goal 2:: Increase R LE strength by 1/2 muscle grade ( at time of eval: LE MMT: R hip flex 3-/5, L hip flex 4-/5, R knee ext 4-/5 and L knee ext 4/5, R hip abd 3-/5 and L hip abd 4-/5) Goal Progress: Goal Met Goal 3:: Be able to walk without the walker with a normal gait pattern without LOB and with out R toe drag Goal Progress: Progressing Goal 4:: Increase Tinetti by 5 points to decrease fall risk to 22 Goal Progress: Goal Met Goal 5:: Stairs: up and down recip with 1 hand rail with minimal SOB Goal Progress: Goal Met Goal 6:: Increase FGA score by 3 points to decrease fall risk Goal Progress: Goal Met Plan: DC PT to HEP and physician reassessment. Pt concerned about RTW so possible functional capacity eval. Discharge Comments: DC PT to HEP If there are questions or concerns regarding this patient's physical therapy, please feel free to call me at [phone]. Thank you for the referral of this patient. Sincerely, Sophia Pérez, MPT
== END 2019-04-23 19:00 | disposition home or self-care (01) ==
LOC: PT 10:30
PROVIDERS: Family Provider Family Medicine; PCP Family Medicine; Visit Provider Family Medicine
DX: I67.81 Acute cerebrovascular insufficiency (principal); R47.1 Dysarthria and anarthria
CPT/HCPCS: 36415; 71046; 80048; 83880; 92526; 92610; 97110; 97112; 97116; 97162; 97164; 97166; 97530

== ENCOUNTER → 2019-06-17 20:00 | Outpatient (CLI) | payer MEDICAID, SELFPAY ==
[2019-04-25 08:58] VITALS: BMI 28.6
== END ==
PROVIDERS: PCP Family Medicine; Visit Provider Nurse Practitioner Acute Care
DX: G47.33 Obstructive sleep apnea (adult) (pediatric) (principal)
CPT/HCPCS: 95811

== ENCOUNTER → 2019-06-28 11:29 | Outpatient (CLI) | payer MEDICAID, SELFPAY ==
[2019-05-20 13:13] VITALS: BMI 33.1
== END ==
PROVIDERS: PCP Family Medicine; Visit Provider Nurse Practitioner Acute Care
DX: G47.33 Obstructive sleep apnea (adult) (pediatric) (principal)

== ENCOUNTER → 2019-07-01 11:00 | Outpatient (CLI) | payer MEDICAID, SELFPAY ==
[2019-05-20 13:13] VITALS: BMI 33.1
== END ==
PROVIDERS: PCP Family Medicine; Visit Provider Nurse Practitioner Acute Care
DX: G47.33 Obstructive sleep apnea (adult) (pediatric) (principal)

== ENCOUNTER → 2019-10-04 08:51 | Outpatient (CLI) | payer MEDICAID, SELFPAY ==
[2019-09-20 13:40] VITALS: BMI 34.0
[2019-10-04 12:12] LABS: Absolute Lymphocyte Count 2.69 X10^3/uL (0.83-4.51); Absolute Neutrophil Count 4.2 X10^3/uL (2.0-7.7); Basophil# 0.06 X10^3/uL; Basophil% 0.7 % (0-1); Eosinophil# 0.44 X10^3/uL; Eosinophils% 5.5 % (0-5); Hematocrit 40.6 % (37-47); Hemoglobin 13.3 g/dL (12.0-15.0); Lymphocyte # 2.69 X10^3/ul (4.0); Lymphocyte % 33.4 % (19-41); Mean Corp Hgb Conc 32.8 g/dL (32-36); Mean Corpuscular Hgb 29.4 pg (27.0-32.0); Mean Corpuscular Volume 89.8 fL (81-99); Mean Platelet Vol. 11.9 fl (6.2-12.0); Monocyte# 0.63 X10^3/uL; Monocyte% 7.8 % (0-10); NRBC Flagged by Analyzer 0 % (0-5); Neutrophil % 52.1 % (47-70); Platelet Count 161 K/mm3 (150-450); RBC Distribution Width CV 13.4 % (11.6-14.6); RBC Distribution Width SD 44.1 fl (35.1-43.9); Red Blood Count 4.52 M/mm3 (4.2-5.4); White Blood Count 8.1 K/mm3 (4.4-11.0)
[2019-10-04 12:38] LABS: Hemoglobin A1c 7.8 % (3.8-5.6)
[2019-10-04 12:39] LABS: ALB/GLOB Ratio 0.9 RATIO (0.9-2.4); AST(SGOT) 16 U/L (15-37); Alanine Aminotransfer ALT/SGPT 24 U/L (13-56); Albumin, Serum 3.4 g/dL (3.2-5.0); Alkaline Phosphatase 63 U/L (45-117); Anion Gap 4 (5-15); BUN 24 mg/dL (7-18); BUN/Creat Ratio 31.2 RATIO (10-20); Calcium,Total 9.6 mg/dL (8.5-10.1); Chloride 108 mmol/L (98-107); Cholesterol 187 mg/dL (200); Creatinine, Serum 0.77 mg/dL (0.55-1.02); EST Glomerular Filtration Rate 81 mL/min (>60); Est Glom Filt Rate - Afr Amer 98 mL/min (>60); Globulin 3.6 g/dL (2.2-4.2); Glucose 164 mg/dL (74-106); High Density Lipoprotein 36 mg/dL; Magnesium 1.7 mg/dL (1.6-2.6); Potassium 4.1 mmol/L (3.5-5.1); Sodium Level 140 mmol/L (136-145); Triglycerides 185 mg/dL; Very Low Density Lipoprotein 37 mg/dL (5-40)
== END ==
PROVIDERS: PCP Family Medicine; Visit Provider Family Medicine
DX: E87.6 Hypokalemia (principal); E83.42 Hypomagnesemia; E11.8 Type 2 diabetes mellitus with unspecified complications; E11.65 Type 2 diabetes mellitus with hyperglycemia; E78.5 Hyperlipidemia, unspecified; D64.9 Anemia, unspecified
CPT/HCPCS: 36415; 80053; 80061; 83036; 83735; 85025

== ENCOUNTER → 2019-10-10 13:31 | Outpatient (CLI) | payer MEDICAID, SELFPAY ==
[2019-09-20 13:40] VITALS: BMI 34.0
--- NOTE | 2019-10-10 13:35 | VDLE_ITS ---
Reason For Study: edema RIGHT GSV is normal. CFV is compressible, spontaneous, phasic, competent and demonstrates normal augmentation. FV is compressible, spontaneous, phasic, competent and demonstrates normal augmentation. POP V is compressible, spontaneous, phasic, competent and demonstrates normal augmentation. T/P Trunk is compressible. PTV is compressible. RT PerV is compressible. Procedure Exam performed in department. The exam was abbreviated due to the COVID 19 protocol. The exam was diagnostic. A preliminary report was called and/or faxed to Dr. Bernal. Interpretation Summary Deep veins of the right lower extremity are patent and compressible segmentally. There is no evidence of right lower extremity deep vein thrombosis. Valvular competence appears intact within the proximal deep venous system on the right . The right great saphenous vein appears patent and compressible segmentally. Ordering Physician: Fara Bernal Performed By: Asa Arriaga RVT
== END ==
PROVIDERS: PCP Family Medicine; Referring Provider Family Medicine; Visit Provider Family Medicine
DX: R60.0 Localized edema (principal); M79.661 Pain in right lower leg
CPT/HCPCS: 93971

== ENCOUNTER → 2019-10-16 12:04 | Outpatient (CLI) | payer MEDICAID, SELFPAY ==
[2019-09-20 13:40] VITALS: BMI 34.0
--- NOTE | 2019-10-16 12:25 | RAD_ITS ---
STUDY: X-RAY - RIGHT ANKLE REASON FOR EXAM: Female, 59 years old. Right foot and ankle pain/swelling, no injury TECHNIQUE: 3 view(s) of the ankle. COMPARISON: Right foot dated 12/17/2014 FINDINGS: There are degenerative changes of the mid and hindfoot. There is a plantar calcaneal enthesophyte. There are vascular calcifications. RAD/Ankle min 3 Views IMPRESSION: Degenerative changes. Electronically Signed: Delilah Gloria MD at 16:50 EDT Tel , Service support ,
[2019-10-16 15:48] LABS: CRP 9.49 mg/L (0.0-3.0); Rheumatoid Factor < 10.0 IU/mL (<15); Uric Acid 6.3 mg/dL (2.6-6.0)
[2019-10-16 15:49] LABS: Erythrocyte Sedimentation Rate 29 mm/hr (0-30)
[2019-10-16 16:22] LABS: Microalbumin:Creatinine Ratio 1159.7 mg/g CRE (<30 mg/g CRE)
[2019-10-18 15:22] LABS: ANTINUCLEAR ANTIBODIES DIRECT Negative (Negative)
[2019-10-19 10:37] LABS: CCP IgG Antibodies 5 units (0-19)
== END ==
PROVIDERS: PCP Family Medicine; Referring Provider Family Medicine; Visit Provider Family Medicine
DX: M25.50 Pain in unspecified joint (principal); M79.10 Myalgia, unspecified site; M19.071 Primary osteoarthritis, right ankle and foot; E87.6 Hypokalemia; E83.42 Hypomagnesemia; E11.65 Type 2 diabetes mellitus with hyperglycemia; E78.5 Hyperlipidemia, unspecified; D64.9 Anemia, unspecified
CPT/HCPCS: 36415; 73610; 82043; 82570; 84550; 85652; 86038; 86140; 86200; 86225; 86235; 86431

== ENCOUNTER → 2019-12-04 12:22 | Outpatient (CLI) | payer MEDICAID, SELFPAY ==
[2019-12-04 10:02] VITALS: BMI 33.4
== END ==
PROVIDERS: PCP Family Medicine; Referring Provider Physician Assistant Medical; Visit Provider Physician Assistant Medical
DX: I25.10 Atherosclerotic heart disease of native coronary artery without angina pectoris (principal); R00.0 Tachycardia, unspecified
CPT/HCPCS: 93225; 93226

== ENCOUNTER → 2020-03-11 12:21 | Outpatient (CLI) | payer MEDICAID, SELFPAY ==
[2019-12-04 10:02] VITALS: BMI 33.4
[2020-02-13 09:14] VITALS: BMI 34.0
[2020-03-11 12:51] VITALS: PULSE 104; PULSE 106; PULSE 89; PULSE 91; PULSE 98; O2SAT 96; O2SAT 97; O2SAT 98
--- NOTE | 2020-03-12 09:11 | PCM.PSN.6M ---
PSN 6 Minute Walk Test - 6 Minute Walk Test 6 Minute Walk Test: 6 Minute Walk Test PSN:6-Minute Walk Test Start: 03/11/20 12:50 Freq: Status: Active Protocol: RESP.6MINW Document 03/11/20 12:51 ESCOBAR (Rec: 03/11/20 12:52 ESCOBAR [id number]) 6 Minute Walk Test Date Performed 03/11/20 Time Performed 12:30 Height 5 ft 4.5 in Weight: 198 lb Weight in Pounds 198.[address]: Tiffany Jorge [employer] Assistive device used: None Pre-test Oxygen Delivery Method Room Air Pulse Ox (%) 98 Pulse Rate (60-100 beats/min) 89 Dyspnea Arline Scale (0-10) 0.5 Exertion Arline Scale (6-20) 6 1st minute Oxygen Delivery Method Room Air Pulse Ox (%) 96 Pulse Rate (60-100 beats/min) 98 2nd minute Oxygen Delivery Method Room Air Pulse Ox (%) 96 Pulse Rate (60-100 beats/min) 104 H 3rd minute Oxygen Delivery Method Room Air Pulse Ox (%) 97 Pulse Rate (60-100 beats/min) 104 H 4th minute Oxygen Delivery Method Room Air Pulse Ox (%) 96 Pulse Rate (60-100 beats/min) 104 H 5th minute Oxygen Delivery Method Room Air Pulse Ox (%) 96 Pulse Rate (60-100 beats/min) 106 H 6th minute Oxygen Delivery Method Room Air Pulse Ox (%) 97 Pulse Rate (60-100 beats/min) 106 H Dyspnea Arline Scale (0-10) 4 Exertion Arline Scale (6-20) 13 Post-test Oxygen Delivery Method Room Air Pulse Ox (%) 97 Pulse Rate (60-100 beats/min) 91 Full Laps Walked 14 Partial Lap, Number of Tiles Walked 40 Total Distance Walked (ft) 866 - Interpretation Interpretation: The patient ambulated 866 feet over the course of 6 minutes beginning on room air without assistive devices or breaks. Pretesting oxygen saturation was noted to be 98% on room air. With ambulation, the kiki oxygen saturation was 96%. There was no significant exertional oxygen desaturation. - Recommendations Recommendations: There is no indication for the use of supplemental oxygen at this time.
== END ==
PROVIDERS: PCP Family Medicine; Referring Provider Nurse Practitioner Acute Care; Visit Provider Nurse Practitioner Acute Care
DX: R06.00 Dyspnea, unspecified (principal)
CPT/HCPCS: 94618

== ENCOUNTER → 2020-03-26 10:01 | Outpatient (CLI) | payer MEDICAID, SELFPAY ==
[2020-03-13 09:08] VITALS: BMI 34.2
--- NOTE | 2020-03-27 07:33 | PFT ---
INTRODUCTION: The patient is a 60-year-old female that presents for pulmonary function studies secondary to a diagnosis of dyspnea. Respiratory therapy reports good patient effort. Bronchodilators were used during testing. INTERPRETATION: Forced expiration spirometry demonstrates no evidence of a large airways obstructive ventilatory defect. There was no significant response to aerosolized bronchodilators. Spirograms are of good quality and plateau normally. Body plethysmography was performed and reveals lung volumes to be within normal limits. Diffusing capacity by single breath CO was reduced at 56% of predicted. IMPRESSION: Isolated reduction in diffusing capacity, which could be related to an underlying pulmonary vascular disorder such as pulmonary hypertension.
== END ==
PROVIDERS: PCP Family Medicine; Referring Provider Internal Medicine Critical Care Medicine; Visit Provider Internal Medicine Critical Care Medicine
DX: R06.00 Dyspnea, unspecified (principal)
CPT/HCPCS: 94060; 94726; 94729

== ENCOUNTER → 2020-06-05 08:49 | Outpatient (CLI) | payer MEDICAID, SELFPAY ==
[2020-05-27 09:24] VITALS: BMI 34.0
--- NOTE | 2020-06-05 08:51 | ECHOD_ITS ---
Reason For Study: Dyspnea/SOB Procedure This was a 2D Doppler, Color Flow transthoracic echocardiogram. Exam performed in department. Left Ventricle Normal LV size. The estimated ejection fraction is 55 %. Unable to assess diastolic dysfunction. No regional wall motion abnormalities noted. Right Ventricle Normal RV size. Normal systolic function. Atria Normal left atrium. Normal right atrium. No doppler evidence for ASD. Mitral Valve There is moderate mitral annular calcification. There is no mitral valve stenosis. Trivial mitral valve insufficiency. Tricuspid Valve There is no tricuspid stenosis. Trivial tricuspid valve insufficiency. Pulmonary artery systolic pressure is 25-30 mmHg. Aortic Valve Trisinus/trileaflet aortic valve. Aortic sclerosis, no stenosis. There is no aortic stenosis. No aortic valve insufficiency. Pulmonic Valve There is no pulmonic valvular stenosis. Trivial pulmonic valve insufficiency. Great Vessels Normal aortic root. Pericardium/Pleural No pericardial effusion. MMode/2D Measurements & Calculations LVIDd: 3.7 cm IVSd: 1.7 cm Ao root diam: 3.4 cm LVIDs: 3.2 cm LVPWd: 1.3 cm LA dimension: 3.9 cm RVDd: 3.4 cm FS: 14.9 % LAV(MOD-bp): 54.6 ml LA A4 area: 18.5 cm2 RA A4 area: 13.9 cm2 LAV(MOD-bp) Indexed: 27.8 ml/m2 LAV(MOD-sp2): 51.8 ml LAV(MOD-sp4): 57.2 ml Time Measurements MV dec time: 0.21 sec Doppler Measurements & Calculations MV E max vincent: 63.6 cm/sec Lat Peak E' Vincent: 7.0 cm/sec Med Peak E' Vincent: 5.9 cm/sec MV A max vincent: 89.0 cm/sec E/E' lat: 9.0 E/E' med: 10.7 MV E/A: 0.72 MV V2 max: 89.5 cm/sec MV P1/2t max vincent: 65.8 cm/sec Ao V2 max: 111.6 cm/sec MV max P.2 mmHg MV P1/2t: 120.9 msec Ao max P.0 mmHg MV V2 mean: 50.2 cm/sec MV dec slope: 159.3 cm/sec2 MV mean P.2 mmHg MVA(P1/2t): 1.8 cm2 MV V2 VTI: 20.6 cm LV V1 max: 88.7 cm/sec PA V2 max: 105.9 cm/sec TR max vincent: 241.2 cm/sec LV V1 max P.1 mmHg TR max P.3 mmHg ECHO/Echo Complete Interpretation Summary The estimated ejection fraction is 55 %. Unable to assess diastolic dysfunction. Trivial mitral valve insufficiency. Ordering Physician: Tiffany Jorge Referring Physician: Fara Bernal Performed By: Ry Vides RCS
== END ==
PROVIDERS: PCP Family Medicine; Referring Provider Nurse Practitioner Acute Care; Visit Provider Nurse Practitioner Acute Care
DX: R06.02 Shortness of breath (principal)
CPT/HCPCS: 93306

== ENCOUNTER → 2020-10-06 11:00 | Outpatient (CLI) | payer MEDICAID, SELFPAY ==
[2020-09-23 05:35] VITALS: BMI 33.6
== END ==
PROVIDERS: PCP Family Medicine; Referring Provider Internal Medicine Critical Care Medicine; Visit Provider Internal Medicine Critical Care Medicine
DX: G47.33 Obstructive sleep apnea (adult) (pediatric) (principal)
CPT/HCPCS: 98960; G0463

== ENCOUNTER → 2021-07-26 | Outpatient (CLI) | payer MEDICARE, MEDICAID, SELFPAY ==
[2021-07-26 10:45] LABS: Absolute Lymphocyte Count 2.91 X10^3/uL (0.83-4.51); Absolute Neutrophil Count 4.1 X10^3/uL (2.0-7.7); Basophil# 0.06 X10^3/uL; Basophil% 0.8 % (0-1); Eosinophils% 3.8 % (0-5); Hematocrit 41.8 % (37-47); Hemoglobin 13.5 g/dL (12.0-15.0); Lymphocyte # 2.91 X10^3/ul (0.83-4.51); Lymphocyte % 36.7 % (19-41); Mean Corp Hgb Conc 32.3 g/dL (32-36); Mean Corpuscular Hgb 27.6 pg (27.0-32.0); Mean Corpuscular Volume 85.5 fL (81-99); Monocyte# 0.51 X10^3/uL; Monocyte% 6.4 % (0-10); NRBC Flagged by Analyzer 0 % (0-5); Neutrophil # 4.09 X10^3/uL (2.7-7.7); Neutrophil % 51.7 % (47-70); Platelet Count 217 K/mm3 (150-450); RBC Distribution Width CV 13.4 % (11.6-14.6); Red Blood Count 4.89 M/mm3 (4.2-5.4); White Blood Count 7.9 K/mm3 (4.4-11.0)
[2021-07-26 11:16] LABS: ALB/GLOB Ratio 0.7 RATIO (0.9-2.4); AST(SGOT) 18 U/L (15-37); Alanine Aminotransfer ALT/SGPT 17 U/L (13-56); Albumin, Serum 3.1 g/dL (3.2-5.0); Alkaline Phosphatase 79 U/L (45-117); Anion Gap 3 (5-15); BUN 14 mg/dL (7-18); BUN/Creat Ratio 19.6 RATIO (10-20); Calcium,Total 9.4 mg/dL (8.5-10.1); Chloride 105 mmol/L (98-107); Cholesterol 169 mg/dL (200); Creatinine, Serum 0.71 mg/dL (0.55-1.02); EST Glomerular Filtration Rate 88 mL/min (>60); Est Glom Filt Rate - Afr Amer 107 mL/min (>60); Globulin 4.3 g/dL (2.2-4.2); Glucose 53 mg/dL (74-106); High Density Lipoprotein 41 mg/dL; Potassium 3.7 mmol/L (3.5-5.1); Protein, Total 7.4 g/dL (6.4-8.2); Sodium Level 140 mmol/L (136-145); Triglycerides 210 mg/dL; Very Low Density Lipoprotein 42 mg/dL (5-40)
== END | disposition home or self-care (01) ==
LOC: LAB 09:54
PROVIDERS: PCP Family Medicine; Referring Provider Physician Assistant Medical; Visit Provider Physician Assistant Medical
DX: I25.10 Atherosclerotic heart disease of native coronary artery without angina pectoris (principal); E78.2 Mixed hyperlipidemia
CPT/HCPCS: 36415; 80053; 80061; 85025

== ENCOUNTER 2021-09-16 10:11 | Emergency (ER) | payer MEDICARE, MEDICAID, SELFPAY ==
[2021-09-16 10:13] VITALS: BP 185/104; PULSE 94; RESP 14; TEMP 36.6; O2SAT 98; BMI 33.1
--- NOTE | 2021-09-16 10:23 | EDS_ITS ---
HPI <NILA Mayes - Last Filed: 09/16/21 11:15> History of Present Illness Chief Complaint: Abscess Narrative Narrative: 61-year-old female presents to the emergency department with redness to the left hand as well as low back pain. Patient states that she does have history of back issues, states 1 week ago she felt it was tight, it is getting better however it still tight. Patient also states for the last 4 days she had a red anna which she is concerned now is an abscess to her left hand. She denies any fevers or chills. Patient is tender around the area. She denies any drainage. Denies any known injury. Denies any bowel or bladder incontinence, denies any lower extremity weakness. PFS <NILA Mayes - Last Filed: 09/16/21 11:15> [facility] Medical History Anemia Arthritis Chronic diastolic (congestive) heart failure CVA (cerebral vascular accident) (12/14/18) Diabetic retinopathy associated with type 2 diabetes mellitus Dysarthria Dyspnea Essential (primary) hypertension History of deep venous thrombosis (DVT) of distal vein of left lower extremity (04/13/13) History of non-Hodgkin's lymphoma (2012) History of non-ST elevation myocardial infarction (NSTEMI) (04/08/13) Hyperlipidemia IBS (irritable bowel syndrome) Incontinent of urine 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) Limb weakness neck/back pain Obesity MARLEN (obstructive sleep apnea) Polycystic ovaries Shoulder pain Skin lesion of left lower extremity Slurred speech Type 2 diabetes mellitus Home Medications insulin aspart U-100 100 unit/mL (3 mL) subcutaneous pen 40 unit subcut BREAKFAST 04/25/19 [History Last Taken Unknown] insulin degludec 100 unit/mL (3 mL) subcutaneous pen (Tresiba FlexTouch U-100 insulin) 30 unit subcut DAILY 04/25/19 [History Last Taken Unknown] cholecalciferol (vitamin D3) 50 mcg (2,000 unit) capsule 2,000 units PO DAILY 05/20/19 [History Last Taken Unknown] albuterol sulfate 90 mcg/actuation aerosol inhaler (Proventil HFA) 2 puff inhalation Q6H PRN Sob &/Or Wheezing 08/14/19 [History Last Taken Unknown] insulin aspart U-100 100 unit/mL (3 mL) subcutaneous pen 30 units subcut BIDCM 09/04/19 [History Last Taken Unknown] metformin 1,000 mg tablet 1,000 mg PO BID 04/02/20 [History Last Taken Unknown] pen needle, diabetic 31 gauge x 06/28 #1,200 ea 04/02/20 [History Last Taken Unknown] furosemide 40 mg tablet 40 mg PO QAM #90 tabs 05/17/21 [Rx Last Taken Unknown] apixaban 5 mg tablet (Eliquis) 5 mg PO BID 07/26/21 [History Last Taken Unknown] atorvastatin 10 mg tablet 10 mg PO DAILY #1 TAB 07/26/21 [Rx Last Taken Unknown] glipizide 5 mg tablet 5 mg PO DAILY 07/26/21 [History Last Taken Unknown] losartan 50 mg tablet 50 mg PO DAILY #90 tabs 07/26/21 [Rx Last Taken Unknown] metoprolol succinate 50 mg tablet,extended release 24 hr 50 mg PO DAILY 07/26/21 [History Last Taken Unknown] cephalexin 500 mg capsule 500 mg PO Q6 7 days #28 caps 09/16/21 [Rx Last Taken Unknown] lidocaine 5 % topical patch (Lidoderm) 1 patch topical DAILY #15 ea 09/16/21 [Rx Last Taken Unknown] Allergy/AdvReac Type Severity Reaction Status Date / Time Penicillins Allergy Unknown Verified 09/16/21 10:13 lisinopril AdvReac Intermediate Other Verified 09/16/21 10:13 hydrocodone bitartrate AdvReac Unknown Verified 09/16/21 10:13 [From Vicodin] losartan AdvReac Heart Burn Verified 09/16/21 10:13 grasses and tree pollen Allergy Intermediate upper Uncoded 09/16/21 10:13 respiratory symptoms Family History Father , 65 Diabetes Hypertension cabg Mother , Age 65 Hypertension Renal failure Sister Cancer Sister Diabetes Cardiomegaly Surgical History Atherosclerotic heart disease of [place] coronary artery without angina pectoris H/O coronary artery bypass surgery (04/10/13) History of left heart catheterization (07/26/18) Social History Smoking Status: Never smoker alcohol intake: never ROS <NILA Mayes - Last Filed: 09/16/21 11:15> ROS ED ROS Narrative Constitutional: Negative for fever, chills, weight loss, weakness Eyes: Negative for vision loss, vision change, double vision ENT: Negative for any sore throat, ear pain, congestion Cardiovascular: Negative for any chest pain, tightness, palpitations Respiratory: Negative for any cough, sputum production, hemoptysis, dyspnea, dyspnea on exertion, orthopnea Gastrointestinal: Negative for any abdominal pain, nausea, vomiting, diarrhea, constipation, blood in stool, blood in vomit : Negative for any urinary frequency, dysuria, retention, blood in urine Muscle skeletal: Negative for any muscle joint pain, stiffness, myalgias, arthralgias, neck pain. Positive for back pain Neurological: Negative for any headache, syncope, numbness or tingling, dizziness Skin: Negative for any rashes, itching, abrasions, lacerations. Positive for red painful lump to the left hand Psychiatric: Negative for any depression, anxiety, stress, suicidal ideation, homicidal ideation Hematologic: Negative for any easy bruising, excessive bruising, easy bleeding Allergies: Negative for any eczema, hives, rash EXAM <NILA Mayes - Last Filed: 09/16/21 11:15> Physical Exam Narrative Exam Narrative: Vital signs reviewed. HEET: Head normocephalic atraumatic, TMs clear bilaterally. Posterior pharynx is clear, moist mucous membranes. Nares clear bilaterally. Neck: Supple with no lymphadenopathy or tenderness. No signs of meningismus, negative jolt sign. Cardiac: Regular rate and rhythm no murmurs gallops or rubs, equal peripheral pulses bilaterally. Respiratory: Lungs clear to auscultation bilaterally. No chest tenderness. Abdomen: Soft, nontender, nondistended. No abdominal bruit or pulsatile masses. No hepatosplenomegaly Extremities: No peripheral edema, no signs of gross trauma or deformity. Active full range of motion of all extremities. Patient is full range of motion of bilateral lower legs. Equal strength. Neuro: Cranial nerves II through XII intact, no focal neurological deficits. Skin: Clean dry and intact with no rash, purpura, petechiae, vesicles or pustules. Patient has a raised erythemic, painful lump to the dorsal aspect of the left hand below the second digit. This is painful on palpation. No drainage noted. Patient is full range of motion of the hand. Backs/flank: No CVA tenderness, no midline spinal tenderness, no deformity. Psych: Normal mood and affect. No SI, HI or acute psychosis. Const Vital Signs: 09/16/21 10:13 09/16/21 11:31 Temperature 98 F Temperature Source Temporal Pulse Rate 94 64 Respiratory Rate 14 15 Blood Pressure 185/104 H 124/69 H Blood Pressure Mean 131 Pulse Ox 98 98 Oxygen Delivery Method Room Air <Dr. José Nieves DO - Last Filed: 09/16/21 13:08> Physical Exam Const Vital Signs: 09/16/21 10:13 09/16/21 11:31 Temperature 98 F Temperature Source Temporal Pulse Rate 94 64 Respiratory Rate 14 15 Blood Pressure 185/104 H 124/69 H Blood Pressure Mean 131 Pulse Ox 98 98 Oxygen Delivery Method Room Air [facility] <NILA Mayes - Last Filed: 09/16/21 11:15> [facility] Treatment and Re-Evaluation Narrative: Patient appears well, patient appears nontoxic, vital signs are stable. Patient presents the emergency department with concern for infection to her left hand as well as a lumbar back strain. Patient was given 4 mg of IM morphine for her l ower lumbar spine. Patient left hand was cleansed, anesthetized, I was able place a small incision at the head of the abscess, no drainage was noted. Patient be placed on Keflex 4 times a day for 7 days, there is slight opening, warm compresses are encouraged. She will be given a prescription for Lidoderm patch as well as continue to take her Tylenol at home, perform gentle stretching. She instructed return for any worsening redness, fever chills nausea vomiting. Patient stable for discharge <Dr. José Nieves DO - Last Filed: 09/16/21 13:08> [facility] Narrative Medical decision making narrative: Attending note: Patient seen and evaluated with corrugated fastener driver. I perform my own [id number] evaluation. I agree with the plan of work-up. Nontraumatic low back pain past week. No radicular symptoms. No loss of bowel or bladder control. History of similar reported had ruptured disc in the past. Requesting medications. Also left hand increasing vomiting for last 4 days. No drainage. No fevers. Exam and lumbar tenderness no step-offs. Straight leg test negative bilaterally. Left hand raised nodule dorsal left hand no fluctuance. No streaking. I&D by corrugated fastener driver with no drainage. Antibiotic started. Lidoderm patch written as requested by patient with outpatient follow-up. Discharge Plan Triage Chief Complaint: Abscess Other Complaint: Upper Extremity Injury ED Midlevel Provider: Enrrique Cordoba ED Provider: José Nieves Dx/Rx/DC Orders Clinical Impression: Abscess, Acute lumbar myofascial strain, Cellulitis and abscess of hand, History of diabetes mellitus Instructions: Abscess Drainage, ED Back Sprain/Strain Prescriptions: New cephalexin 500 mg capsule 500 mg PO Q6 7 Days Qty: 28 0RF lidocaine [Lidoderm] 5 % adhesive patch,medicated 1 patch topical DAILY Qty: 15 0RF Rx Instructions: leave on most painful area for up to 12 hrs No Action cholecalciferol (vitamin D3) 50 mcg (2,000 unit) capsule 2,000 units PO DAILY Label Comments: TAKE 1 CAPSULE BY MOUTH EVERY DAY Tresiba FlexTouch U-100 100 unit/mL (3 mL) insulin pen 30 unit SC DAILY insulin aspart U-100 100 unit/mL (3 mL) insulin pen 40 unit subcut BREAKFAST Rx Instructions: sliding scale albuterol sulfate [Proventil HFA] 90 mcg/actuation HFA aerosol inhaler 2 puff INHALATION Q6H PRN (Reason: Sob &/Or Wheezing) metformin 1,000 mg tablet 1,000 mg PO BID (DME) pen needle, diabetic 31 gauge x 5/16 needle See Rx Instructions .ROUTE .MEDSUPPLY Qty: 1200 Label Comments: USE DIRECTED 4 TIMES DAILY WITH INSULIN DX E11.9 Rx Instructions: As directed glipizide 5 mg tablet 5 mg PO DAILY metoprolol succinate 50 mg tablet extended release 24 hr 50 mg PO DAILY atorvastatin 10 mg tablet 10 mg PO DAILY Qty: 1 0RF Eliquis 5 mg tablet 5 mg PO BID losartan 50 mg tablet 50 mg PO DAILY Qty: 90 3RF insulin aspart U-100 100 UNITS/ML insulin pen 30 units subcut BIDCM furosemide 40 mg tablet 40 mg PO QAM Qty: 90 3RF Primary Care Provider: Fara Bernal Referrals: Fara Bernal DO [Primary Care Provider] - Activity Restrictions/Additional Instructions: Continue to ice, heat, perform gentle stretching the lower back. You may use warm compresses to the left hand, return for any worsening redness. Disposition Disposition: Home, Self Care Discharge Date/Time: 09/16/21 11:35
[2021-09-16] MEDS: Lidocaine 1% (20 ml mdv) 20 ML Vial INFILT (10:26)
[2021-09-16] MEDS: Morphine 4 MG/ML Syringe IM (10:58)
[2021-09-16] MEDS: Ondansetron ODT 4 MG Tablet PO (10:58)
[2021-09-16 11:31] VITALS: BP 124/69; PULSE 64; RESP 15; O2SAT 98
== END 2021-09-16 11:35 | disposition home or self-care (01) ==
PROVIDERS: Emergency Provider Emergency Medicine; PCP Family Medicine; Visit Provider Emergency Medicine
DX: L02.512 Cutaneous abscess of left hand (principal); I11.0 Hypertensive heart disease with heart failure; I50.32 Chronic diastolic (congestive) heart failure; E11.9 Type 2 diabetes mellitus without complications; Z79.4 Long term (current) use of insulin; L03.114 Cellulitis of left upper limb; S39.012A Strain of muscle, fascia and tendon of lower back, initial encounter; X58.XXXA Exposure to other specified factors, initial encounter; I25.10 Atherosclerotic heart disease of native coronary artery without angina pectoris; I25.2 Old myocardial infarction; E78.5 Hyperlipidemia, unspecified; E66.9 Obesity, unspecified; Z68.33 Body mass index [BMI] 33.0-33.9, adult; Z79.84 Long term (current) use of oral hypoglycemic drugs; Z79.899 Other long term (current) drug therapy; Z86.73 Personal history of transient ischemic attack (TIA), and cerebral infarction without residual deficits
CPT/HCPCS: 10060; 96372; 99283

== ENCOUNTER → 2021-12-29 | Outpatient (CLI) | payer MEDICARE, MEDICAID, SELFPAY ==
--- NOTE | 2021-12-29 12:56 | ART_ITS ---
Reason For Study: Decreased Pedal Pulses Procedure A bilateral lower extremity continuous wave Doppler with analog waveform analysis,segmental pressures,and ankle brachial indexes without exercise. Left Segmental Pressures Left brachial= 152mmHg. Left thigh = 177mmHg. Left calf = 170mmHg. Left posterior tibial artery = 118mmHg. Left dorsalis pedis artery = 128mmHg. Left digit = 62 mmHg. Right Segmental Pressures Right brachial= 147mmHg. Right thigh = 215mmHg. Right calf = 122mmHg. Right posterior tibial artery = 53mmHg. Right dorsalis pedis artery = 127mmHg. Right digit = 102 mmHg. Indices The right ankle brachial index by the posterior tibial artery is 0.35. The right ankle brachial index by the dorsalis pedis is 0.84. The right digital-brachial index is 0.67. The left ankle brachial index by the posterior tibial artery is 0.78. The left ankle brachial index by the dorsalis pedis is 0.84. The left digital-brachial index is 0.41. VL/Lower Ext Art Exam w/o Exercis Interpretation Summary Right GARCÍA 0.84, moderate arterial insufficiency. Doppler/PVR waveforms of the r ight leg reveal distal SFA/popliteal disease Left GARCÍA 0.84, moderate arterial insufficiency. Doppler/PVR waveforms of the le ft leg reveal infrapopliteal disease Ordering Physician: Yesica Narvaez Referring Physician: Fara Bernal Performed By: Janneth Wilcox RDCS/RVT
== END | disposition home or self-care (01) ==
PROVIDERS: PCP Family Medicine; Referring Provider Physician Assistant Medical; Visit Provider Physician Assistant Medical
DX: I73.9 Peripheral vascular disease, unspecified (principal)
CPT/HCPCS: 93923

== ENCOUNTER → 2022-02-18 | Outpatient (CLI) | payer MEDICARE, MEDICAID, SELFPAY ==
--- NOTE | 2022-02-18 12:59 | CDU_ITS ---
Reason For Study: Retinal Occular Ischemia Rt. Velocities/BP Lt. Velocities/BP Prox CCA 60/13 cm/sec. Prox CCA 90/20 cm/sec. Mid CCA 58/13 cm/sec. Mid CCA 70/18 cm/sec. Dist CCA 63/14 cm/sec. Dist CCA 78/20 cm/sec. Prox ICA 96/32 cm/sec. Prox ICA 96/15 cm/sec. Mid ICA 116/27 cm/sec. Mid ICA 84/23 cm/sec. Dist ICA 74/26 cm/sec. Dist ICA 54/23 cm/sec. Rt. ICA/CCA = 2.0. Lt. ICA/CCA = 1.4. Prox ECA 280/25 cm/sec. Prox ECA 127/14 cm/sec. Rt. Vert. 43/12 cm/sec. Lt. Vert. 44/15 cm/sec. Right Extracranial There is heterogeneous, irregular atherosclerotic plaque noted in the right common carotid artery. There is heterogeneous, irregular atherosclerotic plaque noted in the right internal carotid artery. There is heterogeneous, irregular atherosclerotic plaque noted in the right external carotid artery. Antegrade flow is noted in the right vertebral artery. Left Extracranial There is heterogeneous, smooth atherosclerotic plaque noted in the left common carotid artery. There is heterogeneous, smooth atherosclerotic plaque noted in the left internal carotid artery. There is heterogeneous, smooth atherosclerotic plaque noted in the left external carotid artery. Antegrade flow is noted in the left vertebral artery. Procedure Carotid Duplex 12315. This is a Carotid Duplex examination using B-mode, color flow and specral Doppler. Exam performed in department. VL/Carotid Duplex Ultrasound Interpretation Summary Mild (<50%) stenosis right extracranial internal carotid. Mild (<50%) stenosis left extracranial internal carotid. Patent and antegrade vertebrals bilaterally. Ordering Physician: Willie You Referring Physician: Fara Bernal Performed By: Janneth Wilcox, ALYCS, RVT
== END | disposition home or self-care (01) ==
LOC: CVS 12:56
PROVIDERS: PCP Family Medicine; Visit Provider Ophthalmology
DX: H35.82 Retinal ischemia (principal); I65.23 Occlusion and stenosis of bilateral carotid arteries
CPT/HCPCS: 93880

== ENCOUNTER → 2022-08-13 | Outpatient (CLI) | payer MEDICARE, MEDICAID, SELFPAY ==
[2022-08-13 08:29] LABS: Absolute Lymphocyte Count 2.99 X10^3/uL (0.83-4.51); Absolute Neutrophil Count 3.5 X10^3/uL (2.0-7.7); Basophil# 0.05 X10^3/uL; Basophil% 0.7 % (0-1); Eosinophil# 0.32 X10^3/uL; Eosinophils% 4.3 % (0-5); Hematocrit 38.2 % (37-47); Hemoglobin 12.3 g/dL (12.0-15.0); Lymphocyte # 2.99 X10^3/ul (0.83-4.51); Lymphocyte % 40.1 % (19-41); Mean Corp Hgb Conc 32.2 g/dL (32-36); Mean Corpuscular Hgb 29.1 pg (27.0-32.0); Mean Corpuscular Volume 90.3 fL (81-99); Mean Platelet Vol. 11.3 fl (6.2-12.0); Monocyte# 0.58 X10^3/uL; Monocyte% 7.8 % (0-10); NRBC Flagged by Analyzer 0 % (0-5); Neutrophil # 3.47 X10^3/uL (2.7-7.7); Neutrophil % 46.4 % (47-70); Platelet Count 188 K/mm3 (150-450); RBC Distribution Width CV 14.1 % (11.6-14.6); RBC Distribution Width SD 46.3 fl (35.1-43.9); Red Blood Count 4.23 M/mm3 (4.2-5.4); White Blood Count 7.5 K/mm3 (4.4-11.0)
[2022-08-13 08:47] LABS: ALB/GLOB Ratio 0.8 RATIO (0.9-2.4); AST(SGOT) 14 U/L (15-37); Alanine Aminotransfer ALT/SGPT 21 U/L (13-56); Albumin, Serum 3.2 g/dL (3.2-5.0); Alkaline Phosphatase 75 U/L (45-117); Anion Gap 6 (5-15); BUN 23 mg/dL (7-18); BUN/Creat Ratio 23.9 RATIO (10-20); Chloride 108 mmol/L (98-107); Cholesterol 213 mg/dL (200); Creatinine, Serum 0.96 mg/dL (0.55-1.02); EST Glomerular Filtration Rate 62 mL/min (>60); Est Glom Filt Rate - Afr Amer 75 mL/min (>60); Globulin 4.1 g/dL (2.2-4.2); Glucose 191 mg/dL (74-106); High Density Lipoprotein 38 mg/dL; Potassium 3.8 mmol/L (3.5-5.1); Protein, Total 7.3 g/dL (6.4-8.2); Sodium Level 141 mmol/L (136-145); Triglycerides 180 mg/dL; Very Low Density Lipoprotein 36 mg/dL (5-40)
[2022-08-13 09:50] LABS: Microalbumin:Creatinine Ratio 1436.2 mg/g CRE (<30 mg/g CRE)
[2022-08-13 10:09] LABS: Hemoglobin A1c 7.3 % (3.8-5.6)
== END | disposition home or self-care (01) ==
PROVIDERS: Physician Assistant Medical; PCP Family Medicine; Referring Provider Family Medicine; Visit Provider Family Medicine
DX: Z00.00 Encounter for general adult medical examination without abnormal findings (principal); E11.9 Type 2 diabetes mellitus without complications; I10 Essential (primary) hypertension; E78.2 Mixed hyperlipidemia
CPT/HCPCS: 80053; 80061; 82043; 82248; 82570; 83036; 85025

== ENCOUNTER 2023-03-18 13:56 | Emergency (ER) | payer MEDICARE, MEDICAID, SELFPAY ==
[2023-03-18 13:57] VITALS: BP 133/77; PULSE 76; RESP 18; TEMP 36.9; O2SAT 97; BMI 33.3
--- NOTE | 2023-03-18 14:17 | EX.ED.UPPERE ---
HPI <FLO [place] - Last Filed: 03/18/23 16:41> History of Present Illness Chief Complaint: Upper Extremity Injury Narrative Narrative: Patient presenting today with right shoulder pain that she has had for the past 2 days. She reports that she was walking and made a turn and felt a sudden pop in her right shoulder. Her shoulder did not seem to bother her until later that evening. She has not tried taking any medication for the pain. She reports decreased ROM in the right shoulder due to pain. She denies any other injury. PFS <FLO [place] - Last Filed: 03/18/23 16:41> [facility] Medical History Anemia Arthritis Chronic diastolic (congestive) heart failure CVA (cerebral vascular accident) (12/14/18) Diabetic retinopathy associated with type 2 diabetes mellitus Dysarthria Dyspnea Essential (primary) hypertension History of deep venous thrombosis (DVT) of distal vein of left lower extremity (04/13/13) History of non-Hodgkin's lymphoma (2012) History of non-ST elevation myocardial infarction (NSTEMI) (04/08/13) Hyperlipidemia IBS (irritable bowel syndrome) Incontinent of urine 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) Limb weakness neck/back pain Obesity MARLEN (obstructive sleep apnea) Polycystic ovaries Shoulder pain Skin lesion of left lower extremity Slurred speech Type 2 diabetes mellitus Home Medications cholecalciferol (vitamin D3) 50 mcg (2,000 unit) capsule 2,000 units PO DAILY 05/20/19 [History Last Taken Unknown] albuterol sulfate 90 mcg/actuation aerosol inhaler (Proventil HFA) 2 puff inhalation Q6H PRN Sob &/Or Wheezing 08/14/19 [History Last Taken Unknown] metformin 1,000 mg tablet 1,000 mg PO BID 04/02/20 [History Last Taken Unknown] pen needle, diabetic 31 gauge x 06/28 #1,200 ea 04/02/20 [History Last Taken Unknown] furosemide 40 mg tablet 40 mg PO QAM #90 tabs 05/17/21 [Rx Last Taken Unknown] losartan 50 mg tablet 50 mg PO DAILY #90 tabs 07/26/21 [Rx Last Taken Unknown] flash glucose sensor (FreeStyle Moses 14 Day Sensor kit) #1 ea 10/19/21 [History Last Taken Unknown] insulin degludec 100 unit/mL (3 mL) subcutaneous pen (Tresiba FlexTouch U-100 insulin) 50 unit subcut DAILY 10/19/21 [History Last Taken Unknown] amlodipine 2.5 mg tablet See Rx Instructions .Route .COMPLEX #90 tabs 03/11/22 [Rx Last Taken Unknown] apixaban 5 mg tablet (Eliquis) See Rx Instructions .Route .COMPLEX #60 TABLETS 03/24/22 [Rx Last Taken Unknown] atorvastatin 40 mg tablet (Lipitor) 40 mg PO DAILY #90 tabs 08/23/22 [Rx Last Taken Unknown] insulin aspart U-100 100 unit/mL (3 mL) subcutaneous pen 30 unit subcut .COMPLEX 08/23/22 [History Last Taken Unknown] insulin aspart U-100 100 unit/mL (3 mL) subcutaneous pen 40 unit subcut BREAKFAST 08/23/22 [History Last Taken Unknown] metoprolol succinate 50 mg tablet,extended release 24 hr 50 mg PO DAILY #90 tabs 08/23/22 [Rx Last Taken Unknown] tramadol 50 mg tablet 50 mg PO Q6H 3 days #12 tabs 03/18/23 [Rx Last Taken Unknown] Allergy/AdvReac Type Severity Reaction Status Date / Time Penicillins Allergy Severe Rash Verified 03/18/23 13:57 grass pollen Allergy Intermediate Other Verified 03/18/23 13:57 tree and shrub pollen Allergy Intermediate Other Verified 03/18/23 13:57 lisinopril AdvReac Intermediate Other Verified 03/18/23 13:57 hydrocodone bitartrate AdvReac Mild Unknown Verified 03/18/23 13:57 [From Vicodin] losartan AdvReac Heart Burn Verified 03/18/23 13:57 Family History Father , 65 Diabetes Hypertension cabg Mother , Age 65 Hypertension Renal failure Sister Cancer Sister Diabetes Cardiomegaly Surgical History Atherosclerotic heart disease of [place] coronary artery without angina pectoris H/O coronary artery bypass surgery (04/10/13) History of left heart catheterization (07/26/18) Social History Smoking Status: Never smoker alcohol intake: never substance use type: does not use caffeine: Yes Type: coffee Number of servings: 2 ROS <FLO [place] - Last Filed: 03/18/23 16:41> ROS ED Constitutional Constitutional ED: Denies chills or fever(s) Cardiovascular Cardiovascular: Denies chest pain Respiratory/Chest Respiratory/Chest: Denies cough or dyspnea Gastrointestinal Gastrointestinal: Denies abdominal pain, nausea or vomiting Musculoskeletal Musculoskeletal: Reports arthralgias; Denies myalgias Integumentary Denies rash Neurologic Neurologic: Denies paresthesias or weakness EXAM <FLO [place] - Last Filed: 03/18/23 16:41> Physical Exam Const Vital Signs: 03/18/23 13:57 Temperature 98.4 F Temperature Source Temporal Pulse Rate 76 Respiratory Rate 18 Blood Pressure 133/77 H Blood Pressure Mean 95 Pulse Ox 97 Oxygen Delivery Method Room Air Positive well nourished, well developed and no apparent distress General Appearance ED: well developed HEENT Reports normocephalic and head/scalp atraumatic Mouth ED: Yes moist mucous membranes normal Eyes PERRL and EOMs intact bilaterally Neck full ROM and supple Chest Wall inspection of chest normal Resp normal respiratory effort and clear to auscultation bilaterally Cardio regular rate and regular rhythm GI soft to palpation, non-tender, non-distended and no masses Back/Spine normal ROM and normal to inspection Extremity normal to inspection Extremity Narrative: No swelling, rash, ecchymosis, or erythema to the right shoulder. Decreased range of motion in the right shoulder due to pain. Pain to palpation along humeral head Neuro oriented x3, CN's II-XII intact bilaterally, moves all extremities, no focal motor deficits and no sensory deficits noted Sensorium / Orientation: awake and alert Psych mental status grossly normal and thought process normal Skin no rashes or lesions noted and no wounds MDM <FLO [place] - Last Filed: 03/18/23 16:41> [facility] MDM Narrative Medical decision making narrative: Patient presenting with right shoulder pain that she has had for the past 2 days. No direct trauma to the shoulder. X-ray obtained and is unremarkable. Suspect possible hemarthrosis given her history of Eliquis use. She will be given an orthopedic referral and a sling to use as needed. I will give her a short course of tramadol as well to use as needed. She will be discharged home in stable condition and is comfortable with plan. RICE instructions given. <Dr. Nick Harris MD - Last Filed: 03/18/23 17:15> [facility] Treatment and Re-Evaluation Narrative: I have personally performed a face to face assessment of the patient and have reviewed the MARQUES Note. I performed a substantive portion of the visit including all aspects of the following. My arora findings include: History is minor twist of her torso causing a minor pop feeling in her right subacromial shoulder without anything that sounds like a dislocation/deformity. Patient did not have pain until a day or so later and now the pain is worse and she is having a lot of trouble moving. Abduction and overhead movements are extremely painful, the rest of the movements are painful as well but not as much. She denies any fevers or chills. She denies any other injury. [id number]. Exam is patient able to move her right shoulder in all directions, limited at all extremes. She cannot abduct fully but can go to about 50 or 60 degrees before she stops due to pain. She can internally and externally rotate fairly well but again stopping at extremes of range. The shoulder is not excessively warm to palpation, and there is no purpura or ecchymosis or other rash/erythema noted. Negative Yergason sign. Mild subacromial tenderness, no bony tenderness, and no deformity. Medical Decison Making 3 view right shoulder x-ray series interpreted by myself as no acute dislocation or fracture, there does appear to be some chronic age-related arthrosis there especially at the glenoid rim. Scapular Y view looks good with no evidence of a posterior dislocation, nor my concern about the clinically. She is on Eliquis, and if she has a small hemarthrosis that would explain the delayed onset of symptoms but as I discussed with her I cannot rule out the possibility of bursitis, impingement, and/or rotator cuff pathology. Supportive care with sling and pain medication as needed for sleep, and follow-up with orthopedics advised. Other additions or changes: [None] Discharge Plan Triage Chief Complaint: Upper Extremity Injury ED Midlevel Provider: Geneva Dugan ED Provider: Nick Harris Dx/Rx/DC Orders Clinical Impression: Right shoulder pain Instructions: ED Shoulder Pain, Uncertain Cause Prescriptions: New tramadol 50 mg tablet 50 mg PO Q6H 3 Days Qty: 12 0RF No Action cholecalciferol (vitamin D3) 50 mcg (2,000 unit) capsule 2,000 units PO DAILY Patient Comments: TAKE 1 CAPSULE BY MOUTH EVERY DAY Tresiba FlexTouch U-100 100 unit/mL (3 mL) insulin pen 50 unit SC DAILY insulin aspart U-100 100 unit/mL (3 mL) insulin pen 40 unit subcut BREAKFAST Rx Instructions: sliding scale albuterol sulfate [Proventil HFA] 90 mcg/actuation HFA aerosol inhaler 2 puff INHALATION Q6H PRN (Reason: Sob &/Or Wheezing) metformin 1,000 mg tablet 1,000 mg PO BID (DME) pen needle, diabetic 31 gauge x 5/16 needle See Rx Instructions .ROUTE .MEDSUPPLY Qty: 1200 Patient Comments: USE DIRECTED 4 TIMES DAILY WITH INSULIN DX E11.9 Rx Instructions: As directed losartan 50 mg tablet 50 mg PO DAILY Qty: 90 3RF (DME) FreeStyle Moses 14 Day Sensor Kit See Rx Instructions .ROUTE .MEDSUPPLY Qty: 1 Patient Comments: USE 1 SENSOR EVERY 14 DAYS Rx Instructions: As directed insulin aspart U-100 100 unit/mL (3 mL) insulin pen 30 unit subcut .COMPLEX Rx Instructions: 30 units subcutaneously 30 units at lunch and dinner; furosemide 40 mg tablet 40 mg PO QAM Qty: 90 3RF amlodipine 2.5 mg tablet See Rx Instructions .ROUTE .COMPLEX Qty: 90 3RF Dose Instruction: TAKE 1 TABLET BY MOUTH EVERY DAY Rx Instructions: TAKE 1 TABLET BY MOUTH EVERY DAY Eliquis 5 mg tablet See Rx Instructions .ROUTE .COMPLEX Qty: 60 11RF Dose Instruction: TAKE 1 TABLET BY MOUTH TWICE A DAY Rx Instructions: TAKE 1 TABLET BY MOUTH TWICE A DAY metoprolol succinate 50 mg tablet extended release 24 hr 50 mg PO DAILY Qty: 90 3RF atorvastatin [Lipitor] 40 mg tablet 40 mg PO DAILY Qty: 90 3RF Primary Care Provider: Fara Bernal Referrals: Fara Bernal DO [Primary Care Provider] - Jeronimo Ho DO [Med Staff - Active Staff] - 1 Week if not improving Activity Restrictions/Additional Instructions: Follow-up with orthopedics and return for any worsening of your symptoms. Disposition Disposition: Home, Self Care Discharge Date/Time: 03/18/23 16:03
--- NOTE | 2023-03-18 14:20 | RAD_ITS ---
EXAM: XR RIGHT SHOULDER COMPLETE, 2 OR MORE VIEWS CLINICAL INDICATION: shoulder pain TECHNIQUE: Two or more views of the right shoulder. COMPARISON: No relevant prior studies available. FINDINGS: BONES/JOINTS: Narrowing of the glenohumeral and AC joints. No acute fracture or subluxation. SOFT TISSUES: Normal. No soft tissue swelling or gas. No radiopaque foreign body. RAD/Shoulder min 2 Views IMPRESSION: No acute findings in the right shoulder. Electronically Signed: Neal Adams MD at 15:06 EST ,
--- OUTSIDE RECORDS SUMMARY | 2023-03-18 14:53 | XMS RPT_ITS | CCD ---
Author Name Unknown Address [address] [place] [address] Organization [facility] Care Team Providers Care Hypo Splasher Name Role Phone Nadya BORJA, Gail Ca Unavailable Unavailable Steve Centeno Unavailable Unavailable Steve Centeno Unavailable Unavailable Margaret Sun Primary Care Provider [phone] Allergies Allergy Classification Reported Allergen(s) Allergy Type Date of Onset Reaction(s) Facility (3 sources) Acetaminophen / HYDROcodone Drug Allergy 3 [facility] Work Phone: (3 sources) Lisinopril Drug Allergy 4 cough [facility] Work Phone: (3 sources) Penicillin Drug Allergy 1 [facility] Work Phone: (3 sources) GRASSES [place] TREES drug allergy 5 [facility] Work Phone: (1 source) Acetaminophen / HYDROcodone Drug Allergy 2 Mental Status Change [facility] (1 source) Penicillins Drug Allergy 2 Other: See Comments [facility] Medications Completed/Discontinued Medications Medication Drug Class(es) Dates Sig (Normalized) Sig (Original) amLODIPine 5 mg oral tablet (6 sources) Dihydropyridine Calcium Channel Arti End: 06-26-2013 take 1 tablet by mouth once daily NORVASC 5 MG TABS One tablet by mouth daily AMLODIPINE BESYLATE [id number] Mario Knight aspirin 81 mg oral tablet (12 sources) Platelet Aggregation Inhibitor, Nonsteroidal Anti-inflammatory Drug Start: 06-19-2013 take 1 tablet by mouth once daily ASPIRIN EC 81 MG TBEC One tablet by mouth daily ASPIRIN [id number] Yesica Benjamin RN Problems Active Problems Problem Classification Problem Date Documented Da te Episodic/Chronic Acute myocardial infarction (3 sources) Myocardial infarction; Translations: [ST elevation (STEMI) myocardial infarction of unspecified site] Onset: 4 06-19-2013 Chronic Asthma (3 sources) Asthma; Translations: [Unspecified asthma, uncomplicated] Onset: 5 04-20-2014 Chronic Complication of device; implant or graft (3 sources) Arteriosclerosis of coronary artery bypass graft; Translations: [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 angina pectoris] Onset: 4 06-19-2013 Chronic Coronary atherosclerosis and other heart disease (6 sources) Atherosclerotic heart disease of [place] coronary artery without angina pectoris; Translations: [Old myocardial infarction] Onset: 4 10-22-2015 Chronic Diabetes mellitus with complications (3 sources) Type II diabetes mellitus uncontrolled; Translations: [Type 2 diabetes mellitus with hyperglycemia] Onset: 5 04-10-2014 Chronic Diabetes mellitus without complication (6 sources) Diabetes mellitus; Translations: [Type 2 diabetes mellitus without complications] Onset: 4 Resolved: 7 06-19-2013 Chronic Disorders of lipid metabolism (3 sources) Hyperlipidemia; Translations: [Hyperlipidemia, unspecified] Onset: 4 06-19-2013 Chronic Esophageal disorders (3 sources) Gastroesophageal reflux disease; Translations: [Gastro-esophageal reflux disease without esophagitis] Onset: 5 04-20-2014 Chronic Essential hypertension (3 sources) Hypertensive disorder; Translations: [Essential (primary) hypertension] Onset: 4 06-19-2013 Chronic Gout and other crystal arthropathies (3 sources) Pseudogout; Translations: [Other specified crystal arthropathies, unspecified site] 04-01-2013 Chronic Non-Hodgkin`s lymphoma (9 sources) Malignant lymphoma (clinical); Translations: [Non-Hodgkin's lymphoma (clinical)] Onset: 3 Resolved: 7 06-18-2012 Chronic Osteoarthritis (3 sources) Osteoarthritis; Translations: [Unspecified osteoarthritis, unspecified site] Onset: 5 04-20-2014 Chronic Other nutritional; endocrine; and metabolic disorders (3 sources) Hypomagnesemia; Translations: [Hypomagnesemia] Onset: 5 11-25-2014 Chronic Other nutritional; endocrine; and metabolic disorders (3 sources) Body mass index (BMI) 33.0-33.9, adult; Translations: [Body mass index (BMI) 33.0-33.9, adult] Onset: 4 06-26-2013 Chronic Phlebitis; thrombophlebitis and thromboembolism (3 sources) 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; Translations: [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] Onset: 4 06-19-2013 Chronic Unclassified (6 sources) Long-term drug therapy; Translations: [Other long term care pharmacist (current) drug therapy] Onset: 4 11-16-2016 Past or Other Problems Problem Classification Problem Date Documented Da te Episodic/Chronic Abdominal pain (6 sources) Epigastric pain; Translations: [Epigastric pain] Onset: 05-23-2012 Resolved: 11-16-2016 11-16-2016 Episodic Coronary atherosclerosis and other heart disease (3 sources) Presence of coronary angioplasty implant and graft; Translations: [Presence of coronary angioplasty implant and graft] Onset: 10-22-2015 10-22-2015 Episodic Nonspecific chest pain (6 sources) Chest pain, unspecified; Translations: [Chest pain, unspecified] Onset: 10-29-2010 Resolved: 11-16-2016 10-29-2010 Episodic Other connective tissue disease (3 sources) Lateral epicondylitis; Translations: [Lateral epicondylitis] Onset: 05-08-2014 05-08-2014 Episodic Other connective tissue disease (3 sources) Foot pain; Translations: [Pain in right foot] Onset: 12-17-2014 12-17-2014 Episodic Other gastrointestinal disorders (3 sources) Dysphagia; Translations: [Dysphagia, unspecified] Onset: 11-27-2014 11-27-2014 Episodic Other lower respiratory disease (6 sources) Dyspnea; Translations: [Shortness of breath] Onset: 10-29-2010 Resolved: 11-16-2016 10-29-2010 Episodic Other non-traumatic joint disorders (3 sources) Knee pain; Translations: [Pain in unspecified knee] 04-02-2013 Episodic Residual codes; unclassified (3 sources) FH: Hypertension; Translations: [Family history of ischemic heart disease and other diseases of the circulatory system] 09-06-2013 Episodic Thyroid disorders (3 sources) Cyst of thyroid; Translations: [Nontoxic single thyroid nodule] Onset: 09-04-2014 09-04-2014 Episodic Results Test Name Value Interpretation Reference Range Facil ity Vital Signs Date Time Vital Sign Value Performing Clinician Carol alicia 11-17-2016 15:35-0400 BMI (Body Mass Index) 34.67 kg/m2 Steve Jenkinsoster [facility] Work Phone: 11-17-2016 15:35-0400 BP Diastolic 76 mm[Hg] [facility] Work Phone: 11-17-2016 15:35-0400 BP Systolic 122 mm[Hg] [facility] Work Phone: 11-17-2016 15:35-0400 Height 162.56 cm [facility] Work Phone: 11-17-2016 15:35-0400 Pulse (Heart Rate) 70 /min [facility] Work Phone: 11-17-2016 15:35-0400 Weight 91.63 kg [facility] Work Phone: 05-06-2016 09:46-0400 BMI (Body Mass Index) 32.27 kg/m2 [facility] Work Phone: 05-06-2016 09:46-0400 BP Diastolic 70 mm[Hg] Gail Covington RN [facility] Work Phone: 05-06-2016 09:46-0400 BP Systolic 124 mm[Hg] [facility] Work Phone: 05-06-2016 09:46-0400 Height 162.56 cm Gail Covington RN [facility] Work Phone: 05-06-2016 09:46-0400 Pulse (Heart Rate) 80 /min Gail Jeknins[facility] Work Phone: 05-06-2016 09:46-0400 Respiratory Rate 18 /min Gail Covington RN [facility] Work Phone: 05-06-2016 09:46-0400 Weight 85.28 kg Gail Covington RN [facility] Work Phone: 03-03-2016 08:18-0500 Body Temperature 97.6 [degF] Gail Covington RN [facility] Work Phone: 03-03-2016 08:18-0500 Body Temperature 97.59 [degF] Gail Covington RN [facility] Work Phone: 03-03-2016 08:18-0500 BSA (Body Surface Area) 1.92 m2 Gail Covington RN [facility] Work Phone: 03-03-2016 08:18-0500 Height 162.56 cm Gail Covington RN [facility] Work Phone: 03-03-2016 08:18-0500 Weight 87.27 kg Gail Covington RN [facility] Work Phone: 10-26-2014 22:30-0400 Body surface area Derived from formula 56.59 mL/min Gail Covington RN [facility] Work Phone: 10-07-2014 08:57-0400 Heart rate 82 /min Gail Covington RN [facility] Work Phone: Encounters Encounter Date Encounter Type Care Provider Facility Start: 07-16-2008 End: 07-16-2008 Patient encounter procedure Isrrael Santos Work Phone: [facility] Start: 07-16-2008 Results Only Isrrael Santos Work Phone: [facility] Procedures Date Procedure Procedure Detail Performing Clinician Start: 11-17-2016 End: 11-17-2016 Dietary management education, guidance, and counseling Steve Centeno Start: 11-17-2016 End: 11-17-2016 FLAT BREAKDOWN PROCESSOR Darien Wilcox CARE CONNECTOR Work Phone: Start: 11-17-2016 End: 11-17-2016 Follow Up Appt 6 months Darien Wilcox [facility] Work Phone: Start: 05-06-2016 End: 05-06-2016 Follow Up Appt 6 months Kirill Palmer Start: 05-06-2016 End: 05-06-2016 SONA Pritchard MD Start: 05-06-2016 End: 05-06-2016 Dietary management education, guidance, and counseling Gail Covington RN Start: 03-03-2016 End: 03-03-2016 *CMP Complete Metabolic Panel Kirill Roland Work Phone: Start: 03-03-2016 End: 03-03-2016 Lactate dehydrogenase [Enzymatic activity/volume] in Serum or Plasma Kirill Roland Work Phone: Start: 03-03-2016 End: 03-03-2016 Magnesium [Mass/volume] in Serum or Plasma Kirill Roland Work Phone: Start: 03-03-2016 End: 03-03-2016 Urate [Mass/volume] in Serum or Plasma Kirill Roland Work Phone: Start: 10-23-2015 End: 10-23-2015 Follow Up Appt 6 months Kirill Palmer Start: 10-23-2015 End: 10-23-2015 SONA Pritchard MD Start: 09-18-2015 End: 09-18-2015 Hemoglobin glycosylated a1c Baudilio ocampo DO Work Phone: Start: 09-03-2015 End: 09-10-2015 *CMP Complete Metabolic Panel Kirill Roland Work Phone: Start: 09-03-2015 End: 09-10-2015 Lactate dehydrogenase [Enzymatic activity/volume] in Serum or Plasma Kirill Roy Alam Work Phone: Start: 09-03-2015 End: 09-10-2015 Urate [Mass/volume] in Serum or Plasma Kirill Roy Alam Work Phone: Start: 04-27-2015 End: 05-06-2015 *CBC with Differential Kirill Roland Work Phone: Start: 04-27-2015 End: 05-06-2015 *CMP Complete Metabolic Panel Kirill Roland Work Phone: Start: 04-27-2015 End: 05-06-2015 Lactate dehydrogenase [Enzymatic activity/volume] in Serum or Plasma Kirill Roland Work Phone: Start: 04-27-2015 End: 05-06-2015 Urate [Mass/volume] in Serum or Plasma Kirill Roland Work Phone: Start: 04-14-2015 End: 04-14-2015 FLAT BREAKDOWN PROCESSOR Yesica Narvaez PA-C Work Phone: Start: 04-14-2015 End: 04-14-2015 Follow Up Appt 6 months Yesiac ma PA-C Work Phone: Start: 02-16-2015 End: 03-02-2015 *CBC with Differential Bebe R Nav OUTSIDE INDUSTRIAL SALES REPRESENTATIVE Work Phone: Start: 02-16-2015 End: 03-02-2015 *CMP Complete Metabolic Panel Bebe R Jos labach OUTSIDE INDUSTRIAL SALES REPRESENTATIVE Work Phone: Start: 02-16-2015 End: 03-02-2015 Lactate dehydrogenase [Enzymatic activity/volume] in Serum or Plasma Bebe R Nav OUTSIDE INDUSTRIAL SALES REPRESENTATIVE Work Phone: Start: 02-16-2015 End: 03-02-2015 Urate [Mass/volume] in Serum or Plasma Bebe R Nav OUTSIDE INDUSTRIAL SALES REPRESENTATIVE Work Phone: Start: 12-09-2014 End: 04-15-2016 Magnesium [Mass/volume] in Serum or Plasma Yesica Narvaez PA-C Work Phone: Start: 12-06-2014 End: 12-06-2014 Urinalysis Gail Covington RN Start: 10-07-2014 End: 10-07-2014 *BMP Sheng Pritchard MD Start: 10-07-2014 End: 10-07-2014 *Hepatic Function Panel Yesica ma PA-C Work Phone: Start: 10-07-2014 End: 10-07-2014 CBC W Auto Differential panel - Blood Sheng Pritchard MD Start: 10-07-2014 End: 10-08-2014 Documentation of current medications Sheng Pritchard MD Start: 10-07-2014 End: 10-07-2014 Ecg routine ecg w/least 12 lds w/i&r Sheng Pritchard MD Start: 10-07-2014 End: 10-07-2014 Fibrin D-dimer FEU [Mass/volume] in Platelet poor plasma Sheng Pritchard MD Start: 10-07-2014 End: 10-07-2014 Follow Up Appt 6 months Kirill Palmer Start: 10-07-2014 End: 10-07-2014 Lipid 1996 panel - Serum or Plasma Yesica Narvaez PA-C Work Phone: Start: 10-07-2014 End: 10-07-2014 MMM Sheng Pritchard MD Start: 10-07-2014 End: 10-10-2014 Nuclear stress test -exercise Sheng Hartley MD Start: 10-07-2014 End: 10-08-2014 Pedal pulse taking Sheng Pritchard MD Start: 05-26-2014 End: 05-29-2014 *CBC with Differential Kirill Roland Work Phone: Start: 05-26-2014 End: 05-29-2014 *CMP Complete Metabolic Panel Kirill Roland Work Phone: Start: 05-26-2014 End: 05-29-2014 Lactate dehydrogenase [Enzymatic activity/volume] in Serum or Plasma Kirill Roland Work Phone: Start: 05-26-2014 End: 05-29-2014 Urate [Mass/volume] in Serum or Plasma Kirill Roland Work Phone: Start: 02-17-2014 End: 05-29-2014 *CBC with Differential Kirill Rloand Work Phone: Start: 02-17-2014 End: 05-29-2014 Lactate dehydrogenase [Enzymatic activity/volume] in Serum or Plasma Kirill Roland Work Phone: Start: 02-13-2014 End: 04-15-2016 *Hepatic Function Panel Yesica ma PA-C Work Phone: Start: 02-13-2014 End: 04-15-2016 Lipid 1996 panel - Serum or Plasma Yesica Narvaez PA-C Work Phone: Start: 01-07-2014 End: 05-29-2014 *CBC with Differential Brennon hardy Work Phone: Start: 12-06-2013 End: 12-06-2013 Follow Up Appt 6 months Kirill Palmer Start: 12-06-2013 End: 12-06-2013 MMM Sheng Pritchard MD Start: 12-06-2013 End: 12-11-2013 Venous doppler Sheng Pritchard MD Start: 09-06-2013 End: 09-06-2013 FLAT BREAKDOWN PROCESSOR Yesica Narvaez PA-C Work Phone: Start: 09-06-2013 End: 05-21-2014 Ct thorax w/o & w/contrast material Yesica Narvaez PA-C Work Phone: Start: 09-06-2013 End: 09-06-2013 Follow Up Appt 3 months Yesica ma PA-C Work Phone: Start: 09-06-2013 End: 05-21-2014 Nuclear stress test -exercise Yesica Narvaez PA-C Work Phone: Start: 06-26-2013 End: 09-02-2013 *Hepatic Function Panel Kirill Palmer Start: 06-26-2013 End: 06-26-2013 FLAT BREAKDOWN PROCESSOR Sheng Pritchard MD Start: 06-26-2013 End: 06-26-2013 Ecg routine ecg w/least 12 lds w/i&r Sheng Pritchard MD Start: 06-26-2013 End: 08-29-2013 Echocardiography Sheng Pritchard MD Start: 06-26-2013 End: 06-26-2013 Follow Up Appt 2 months Kirill Palmer Start: 06-26-2013 End: 07-02-2013 INR in Platelet poor plasma by Coagulation assay Sheng Pritchard MD Start: 06-26-2013 End: 09-02-2013 Lipid 1996 panel - Serum or Plasma Sheng Pritchard MD Start: 07-16-2008 CONVERTED SURGICAL PATHOLOGY Isrrael Santos Work Phone: Plan of Treatment Date Care Activity Detail Author Start: 10-15-2019 Influenza vaccination INFLUENZA (#1) [facility] Start: 04-06-2018 LIPID SCREEN LIPID SCREEN [facility] Start: 05-23-2017 End: 05-23-2017 Appointment Appointment [facility] Work Phone: Start: 11-17-2016 End: 11-17-2016 Appointment Appointment [facility] Work Phone: Start: 11-17-2016 End: 11-17-2016 *Hepatic Function Panel *Hepatic Function Panel [facility] Work Phone: Start: 11-17-2016 End: 11-17-2016 FLAT BREAKDOWN PROCESSOR FLAT BREAKDOWN PROCESSOR [facility] Work Phone: Start: 11-17-2016 End: 11-17-2016 Follow Up Appt 6 months Follow Up Appt 6 months [facility] Work Phone: Start: 11-17-2016 End: 11-17-2016 Lipid 1996 panel *Lipid Profile CC PCP [facility] Work Phone: Start: 08-30-2016 End: 03-03-2016 *CBC w/Diff - oncology ONLY *CBC w/Diff - oncology ONLY [facility] Work Phone: Start: 08-30-2016 End: 03-03-2016 *CMP Complete Metabolic Panel *CMP Complete Metabolic Panel [facility] Work Phone: Start: 08-30-2016 End: 03-03-2016 LDH enzyme act/vol *LDH -LDH (Lactate Dehydrogenase) [facility] Work Phone: Start: 05-06-2016 End: 05-06-2016 Follow Up Appt 6 months Follow Up Appt 6 months [facility] Work Phone: Start: 05-06-2016 End: 05-06-2016 MMM MMM [facility] Work Phone: Start: 04-18-2016 DIABETES SCREEN DIABETES SCREEN [facility] Start: 03-03-2016 End: 09-10-2015 *CBC with Differential *CBC with Differential [facility] Work Phone: Start: 03-03-2016 End: 03-03-2016 *CMP Complete Metabolic Panel *CMP Complete Metabolic Panel [facility] Work Phone: Start: 03-03-2016 End: 03-03-2016 LDH enzyme act/vol *LDH -LDH (Lactate Dehydrogenase) [facility] Work Phone: Start: 03-03-2016 End: 03-03-2016 Magnesium mass conc *Magnesium [facility] Work Phone: Start: 03-03-2016 End: 03-03-2016 Urate mass conc *Uric Acid Blood [facility] Work Phone: Start: 10-23-2015 End: 10-23-2015 Follow Up Appt 6 months Follow Up Appt 6 months [facility] Work Phone: Start: 10-23-2015 End: 10-23-2015 MMM MMM [facility] Work Phone: Start: 09-03-2015 End: 05-13-2015 *CBC with Differential *CBC with Differential [facility] Work Phone: Start: 09-03-2015 End: 09-10-2015 *CMP Complete Metabolic Panel *CMP Complete Metabolic Panel [facility] Work Phone: Start: 09-03-2015 End: 09-10-2015 LDH enzyme act/vol *LDH -LDH (Lactate Dehydrogenase) [facility] Work Phone: Start: 09-03-2015 End: 09-10-2015 Urate mass conc *Uric Acid Blood [facility] Work Phone: Start: 04-27-2015 End: 05-06-2015 *CBC with Differential *CBC with Differential [facility] Work Phone: Start: 04-27-2015 End: 05-06-2015 *CMP Complete Metabolic Panel *CMP Complete Metabolic Panel [facility] Work Phone: Start: 04-27-2015 End: 05-06-2015 LDH enzyme act/vol *LDH -LDH (Lactate Dehydrogenase) [facility] Work Phone: Start: 04-27-2015 End: 05-06-2015 Urate mass conc *Uric Acid Blood [facility] Work Phone: Start: 04-14-2015 End: 04-14-2015 FLAT BREAKDOWN PROCESSOR FLAT BREAKDOWN PROCESSOR [facility] Work Phone: Start: 04-14-2015 End: 04-14-2015 Follow Up Appt 6 months Follow Up Appt 6 months [facility] Work Phone: Start: 02-16-2015 End: 03-02-2015 *CBC with Differential *CBC with Differential [facility] Work Phone: Start: 02-16-2015 End: 03-02-2015 *CMP Complete Metabolic Panel *CMP Complete Metabolic Panel [facility] Work Phone: Start: 02-16-2015 End: 03-02-2015 LDH enzyme act/vol *LDH -LDH (Lactate Dehydrogenase) [facility] Work Phone: Start: 02-16-2015 End: 03-02-2015 Urate mass conc *Uric Acid Blood [facility] Work Phone: Start: 12-17-2014 End: 12-17-2014 Radex foot complete minimum 3 views X-Ray, Foot [facility] Work Phone: Start: 12-15-2014 End: 12-15-2014 *CMP Complete Metabolic Panel *CMP Complete Metabolic Panel [facility] Work Phone: Start: 12-15-2014 End: 12-15-2014 *Microalbumin, Creatine Ratio, rand urine *Microalbumin, Creatine Ratio, rand urine [facility] Work Phone: Start: 12-15-2014 End: 12-15-2014 Hemoglobin A1c/Hemoglobin.total mass fraction (Bld) *HgA1C [facility] Work Phone: Start: 12-15-2014 End: 12-16-2014 Swallowing funcj w/cineradiograpy/vidradiog Cookie Swallow [facility] Work Phone: Start: 12-15-2014 End: 12-15-2014 Us guidance needle placement img s&i Ultrasonic guidance for needle placement biopsy, aspiration, imaging [facility] Work Phone: Start: 12-09-2014 End: 04-15-2016 Magnesium mass conc *Magnesium [facility] Work Phone: Start: 12-02-2014 End: 10-07-2014 *Hepatic Function Panel *Hepatic Function Panel [facility] Work Phone: Start: 12-02-2014 End: 10-07-2014 Lipid 1996 panel *Lipid Profile CC PCP [facility] Work Phone: Start: 11-24-2014 End: 10-23-2014 *CBC with Differential *CBC with Differential [facility] Work Phone: Start: 11-24-2014 End: 10-23-2014 *CMP Complete Metabolic Panel *CMP Complete Metabolic Panel [facility] Work Phone: Start: 11-24-2014 End: 10-23-2014 LDH enzyme act/vol *LDH -LDH (Lactate Dehydrogenase) [facility] Work Phone: Start: 11-24-2014 End: 10-23-2014 Magnesium mass conc *Magnesium [facility] Work Phone: Start: 11-24-2014 End: 10-23-2014 Urate mass conc *Uric Acid Blood [facility] Work Phone: Start: 10-07-2014 End: 10-07-2014 *BMP *BMP [facility] Work Phone: Start: 10-07-2014 End: 10-07-2014 CBC W Auto Differential panel - Blood *CBC without Diff [facility] Work Phone: Start: 10-07-2014 End: 10-07-2014 Ecg routine ecg w/least 12 lds w/i&r EKG (In office) [facility] Work Phone: Start: 10-07-2014 End: 10-07-2014 Fibrin D-dimer FEU IA mass conc (Bld) *DDIMQ - Fibrin Degrd Ultrsens Qual/Semiquan [facility] Work Phone: Start: 10-07-2014 End: 10-07-2014 Follow Up Appt 6 months Follow Up Appt 6 months [facility] Work Phone: Start: 10-07-2014 End: 10-07-2014 MMM MMM [facility] Work Phone: Start: 10-07-2014 End: 10-07-2014 Nuclear stress test -exercise Nuclear stress test -exercise [facility] Work Phone: Start: 08-25-2014 End: 08-25-2014 *CBC with Differential *CBC with Differential [facility] Work Phone: Start: 08-25-2014 End: 08-25-2014 *CMP Complete Metabolic Panel *CMP Complete Metabolic Panel [facility] Work Phone: Start: 08-25-2014 End: 08-25-2014 LDH enzyme act/vol *LDH -LDH (Lactate Dehydrogenase) [facility] Work Phone: Start: 08-25-2014 End: 08-25-2014 Urate mass conc *Uric Acid Blood [facility] Work Phone: Start: 05-26-2014 End: 05-29-2014 *CBC with Differential *CBC with Differential [facility] Work Phone: Start: 05-26-2014 End: 05-29-2014 *CMP Complete Metabolic Panel *CMP Complete Metabolic Panel [facility] Work Phone: Start: 05-26-2014 End: 05-29-2014 LDH enzyme act/vol *LDH -LDH (Lactate Dehydrogenase) [facility] Work Phone: Start: 05-26-2014 End: 05-29-2014 Urate mass conc *Uric Acid Blood [facility] Work Phone: Start: 05-08-2014 End: 05-19-2014 Arthrocentesis aspir&/inj small jt/bursa w/o us Injection, Joint (small) [facility] Work Phone: Start: 05-08-2014 End: 05-08-2014 Hemoglobin A1c/Hemoglobin.total mass fraction (Bld) HGB A1C (Office) [facility] Work Phone: Start: 05-08-2014 End: 05-19-2014 Triamcinolone acet inj NOS Kenalog per 10 mg [facility] Work Phone: Start: 02-17-2014 End: 05-29-2014 *CBC with Differential *CBC with Differential [facility] Work Phone: Start: 02-17-2014 End: 05-29-2014 LDH enzyme act/vol *LDH -LDH (Lactate Dehydrogenase) [facility] Work Phone: Start: 02-13-2014 End: 04-15-2016 *Hepatic Function Panel *Hepatic Function Panel [facility] Work Phone: Start: 02-13-2014 End: 04-15-2016 Lipid 1996 panel *Lipid Profile CC PCP [facility] Work Phone: Start: 01-07-2014 End: 05-29-2014 *CBC with Differential *CBC with Differential [facility] Work Phone: Start: 12-06-2013 End: 12-06-2013 Follow Up Appt 6 months Follow Up Appt 6 months [facility] Work Phone: Start: 12-06-2013 End: 12-06-2013 MMM MMM [facility] Work Phone: Start: 12-06-2013 End: 12-06-2013 Venous doppler Venous doppler [facility] Work Phone: Start: 09-06-2013 End: 09-06-2013 FLAT BREAKDOWN PROCESSOR FLAT BREAKDOWN PROCESSOR [facility] Work Phone: Start: 09-06-2013 End: 09-06-2013 Ct thorax w/o & w/contrast material CT Chest with and without Contrast [facility] Work Phone: Start: 09-06-2013 End: 09-06-2013 Follow Up Appt 3 months Follow Up Appt 3 months [facility] Work Phone: Start: 09-06-2013 End: 09-06-2013 Nuclear stress test -exercise Nuclear stress test -exercise [facility] Work Phone: Start: 06-26-2013 End: 09-02-2013 *Hepatic Function Panel *Hepatic Function Panel [facility] Work Phone: Start: 06-26-2013 End: 06-26-2013 FLAT BREAKDOWN PROCESSOR FLAT BREAKDOWN PROCESSOR [facility] Work Phone: Start: 06-26-2013 End: 06-26-2013 Ecg routine ecg w/least 12 lds w/i&r EKG (In office) [facility] Work Phone: Start: 06-26-2013 End: 06-26-2013 Echocardiography Echocardiogram (complete) [facility] Work Phone: Start: 06-26-2013 End: 06-26-2013 Follow Up Appt 2 months Follow Up Appt 2 months [facility] Work Phone: Start: 06-26-2013 End: 07-02-2013 INR Coag RelTime (PPP) *PT/INR - Standing Order [facility] Work Phone: Start: 06-26-2013 End: 09-02-2013 Lipid 1996 panel *Lipid Profile CC PCP [facility] Work Phone: Start: 2009 SHINGRIX VACCINE (1 of 2) SHINGRIX VACCINE (1 of 2) [facility] Start: 2009 Tuberculosis screening COLORECTAL CANCER SCREENING,SEE MODIFIER [facility] Start: 1999 Mammography MAMMOGRAM [facility] Start: 1989 HPV TESTING HPV TESTING [facility] Start: 02-28-1980 PAP TESTING PAP TESTING [facility] Start: 1978 Urine microalbumin profile DTAP,TDAP,TD (1 - Tdap) [facility] Start: 1977 HIV SCREENING HIV SCREENING [facility] Patient Education [employer] Work Phone: Payers Date Payer Category Payer Unknown [employer] [id number] 2004-2018 PPO [id number] Social History Date Type Detail Facility Tobacco smoking status NHIS Unknown if ev er smoked [facility] Sex Assigned At Not on file [facility] Medical Equipment Procedure Code Equipment Code Equipment Origin al Text Equipment Identifier Dates INSULIN PEN NEEDLE PEN NEEDLES 31G X 8 MM [id number] Start: 10-29-2010 End: 05-06-2016 Additional Source Comments Source Comments (unrecognize d section and content) In the event this informatio n is protected by the Federal Confidentiality of Alcohol and Drug Abuse Patient Records regulations: The Federal rules restrict any use of the information to criminally investigate or prosecute any alcohol or drug abuse patient.[facility] FOR RECORDS PERTAINING TO PATIENTS WHO ARE OR HAVE BEEN ENROLLED IN A CHEMICAL DEPENDENCY/SUBSTANCEABUSE PROGRAM, SOME INFORMATION MAY BE OMITTED. This clinical summary was aggregated from multiple sources. Caution should be exercised in using it in the provision of clinical care. This summary normalizes information from multiple sources, and as a consequence, information in this document may materially change the coding, format and clinical context of patient data. In addition, data may be omitted in some cases. CLINICAL DECISIONS SHOULD BE BASED ON THE PRIMARY CLINICAL RECORDS. [facility] [employer] [facility]. provides no warranty or guarantee of the accuracy or completeness of information in this document.
[2023-03-18 15:13] VITALS: BP 135/68; PULSE 63; RESP 16; O2SAT 97
[2023-03-18 16:01] VITALS: BP 153/60; PULSE 70; RESP 16; O2SAT 98
== END 2023-03-18 16:03 | disposition home or self-care (01) ==
PROVIDERS: Emergency Provider Emergency Medicine; PCP Family Medicine; Referring Provider Emergency Medicine; Visit Provider Emergency Medicine
DX: M25.511 Pain in right shoulder (principal); I11.0 Hypertensive heart disease with heart failure; I50.32 Chronic diastolic (congestive) heart failure; E11.319 Type 2 diabetes mellitus with unspecified diabetic retinopathy without macular edema; Z79.4 Long term (current) use of insulin; X50.9XXA Other and unspecified overexertion or strenuous movements or postures, initial encounter; Z79.01 Long term (current) use of anticoagulants; Z79.84 Long term (current) use of oral hypoglycemic drugs; Z79.899 Other long term (current) drug therapy; Z86.73 Personal history of transient ischemic attack (TIA), and cerebral infarction without residual deficits
CPT/HCPCS: 73030; 99283; J7030

== ENCOUNTER 2023-04-05 20:25 | Inpatient (IN) | payer MEDICARE, MEDICAID, SELFPAY ==
[2023-04-05 20:33] VITALS: BP 173/102; PULSE 83; RESP 16; TEMP 36.6; O2SAT 96; BMI 36.3
[2023-04-05 20:36] VITALS: BP 176/102; PULSE 83; RESP 16; TEMP 36.6; O2SAT 96
--- NOTE | 2023-04-05 20:48 | EKG12_ITS ---
Test Reason : CP Blood Pressure : / mmHG Vent. Rate : 081 BPM Atrial Rate : 081 BPM P-R Int : 166 ms QRS Dur : 110 ms QT Int : 392 ms P-R-T Axes : 015 -03 144 degrees QTc Int : 455 ms Normal sinus rhythm Minimal voltage criteria for LVH, may be normal variant ( [place] product ) Cannot rule out Anterior infarct , age undetermined Marked ST abnormality, possible lateral subendocardial injury Abnormal ECG Confirmed by KYRA GAMEZ, JACEY ([id number]), editor at large ALEXSANDER PIPER ([id number]) on 04/07/2023 10:36:45 AM Referred By: Myla Lopez Confirmed By:JACEY RAE MD
--- NOTE | 2023-04-05 20:49 | EDS_ITS ---
HPI History of Present Illness Chief Complaint: Chest Pain Narrative Narrative: 63-year-old female past medical history of coronary artery disease and previous DE without stenting, CVA, atrial fibrillation, on Eliquis presents with chest pain and left arm pain since around 630 this evening, almost 2 hours ago. She denies any nausea or vomiting. No swelling of her legs, no fevers or chills, no shortness of breath. She has a chronic cough. She states that she has had history of chest pain because 10 years ago she had a port in her chest, and sometimes that gives her problems. She also has problems with memory from a CVA remotely years back. She presents because of the left-sided chest pain and pressure that she was having, and states that her entire arm had pain in it. This was new for her. This lasted approximately an hour and a half while she was sitting in bed. She states that it lasted an hour and they decided to call EMS, and it resolved upon arrival here. No other exacerbating or alleviating factors. This is not how she felt when she had her prior DE. She states she never really had chest or arm pain at that time. [facility] Medical History (Updated 04/05/23 @ 23:[address] Myla Lopez MD) Anemia Arthritis Chronic diastolic (congestive) heart failure CVA (cerebral vascular accident) (12/14/18) Diabetic retinopathy associated with type 2 diabetes mellitus Dysarthria Dyspnea Essential (primary) hypertension History of deep venous thrombosis (DVT) of distal vein of left lower extremity (04/13/13) History of non-Hodgkin's lymphoma (2012) History of non-ST elevation myocardial infarction (NSTEMI) (04/08/13) Hyperlipidemia IBS (irritable bowel syndrome) Incontinent of urine 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) Limb weakness neck/back pain Obesity MARLEN (obstructive sleep apnea) PAF (paroxysmal atrial fibrillation) Polycystic ovaries Shoulder pain Skin lesion of left lower extremity Slurred speech Type 2 diabetes mellitus Home Medications cholecalciferol (vitamin D3) 50 mcg (2,000 unit) capsule 2,000 units PO DAILY 05/20/19 [History Last Taken Unknown] albuterol sulfate 90 mcg/actuation aerosol inhaler (Proventil HFA) 2 puff inhalation Q6H PRN Sob &/Or Wheezing 08/14/19 [History Last Taken Unknown] metformin 1,000 mg tablet 1,000 mg PO BID 04/02/20 [History Last Taken Unknown] pen needle, diabetic 31 gauge x 06/28 #1,200 ea 04/02/20 [History Last Taken Unknown] furosemide 40 mg tablet 40 mg PO QAM #90 tabs 05/17/21 [Rx Last Taken Unknown] losartan 50 mg tablet 50 mg PO DAILY #90 tabs 07/26/21 [Rx Last Taken Unknown] flash glucose sensor (FreeStyle [place] 14 Day Sensor kit) #1 ea 10/19/21 [History Last Taken Unknown] insulin degludec 100 unit/mL (3 mL) subcutaneous pen (Tresiba FlexTouch U-100 i nsulin) 50 unit subcut DAILY 10/19/21 [History Last Taken Unknown] apixaban 5 mg tablet (Eliquis) See Rx Instructions .Route .COMPLEX #60 TABLETS 03/24/22 [Rx Last Taken Unknown] atorvastatin 40 mg tablet (Lipitor) 40 mg PO DAILY #90 tabs 08/23/22 [Rx Last Taken Unknown] insulin aspart U-100 100 unit/mL (3 mL) subcutaneous pen 30 unit subcut .COMPLEX 08/23/22 [History Last Taken Unknown] insulin aspart U-100 100 unit/mL (3 mL) subcutaneous pen 40 unit subcut BREAKFAST 08/23/22 [History Last Taken Unknown] metoprolol succinate 50 mg tablet,extended release 24 hr 50 mg PO DAILY #90 tabs 08/23/22 [Rx Last Taken Unknown] tramadol 50 mg tablet 50 mg PO Q6H 3 days #12 tabs 03/18/23 [Rx Last Taken Unknown] amlodipine 2.5 mg tablet See Rx Instructions .Route .COMPLEX #90 tabs 03/22/23 [Rx Last Taken Unknown] Allergy/AdvReac Type Severity Reaction Status Date / Time Penicillins Allergy Severe Rash Verified 04/05/23 20:32 grass pollen Allergy Intermediate Other Verified 04/05/23 20:32 tree and shrub pollen Allergy Intermediate Other Verified 04/05/23 20:32 lisinopril AdvReac Intermediate Other Verified 04/05/23 20:32 hydrocodone bitartrate AdvReac Mild Unknown Verified 04/05/23 20:32 [From Vicodin] losartan AdvReac Heart Burn Verified 04/05/23 20:32 Family History Father , 65 Diabetes Hypertension cabg Mother , Age 65 Hypertension Renal failure Sister Cancer Sister Diabetes Cardiomegaly Surgical History Atherosclerotic heart disease of [place] coronary artery without angina pectoris H/O coronary artery bypass surgery (04/10/13) History of left heart catheterization (07/26/18) Social History Smoking Status: Never smoker alcohol intake: never substance use type: does not use caffeine: Yes Type: coffee Number of servings: 2 ROS ROS ED ROS Narrative Constitutional: No fever, no chills. HEENT: No sore throat. No neck pain. No loss of vision. No rhinorrhea. Cardiovascular: Positive for left-sided chest pain. Arm pain. No palpitations. No pedal edema. Respiratory: No cough, no shortness of breath. Abdominal: No abdominal pain. No nausea. No vomiting. Genitourinary: No dysuria. No hematuria. Musculoskeletal: No myalgias. No arthralgias. Neurologic: No headaches. No dizziness. No lightheadedness. Skin: No rash. No change in color. Psychiatric: No depression. No anxiety. EXAM Physical Exam Narrative Exam Narrative: Afebrile. Vital signs noted. HEENT: Normocephalic. Atraumatic. PERRL, EOMI. Neck soft and supple. No point tenderness or step off. Cardiovascular: Regular rate and rhythm. No murmurs, rubs, or gallops appreciated. Respiratory: No tachypnea. Lungs clear to auscultation bilaterally. Gastrointestinal: Abdomen soft, nontender, with normoactive bowel sounds. No rebound or guarding. Neurological: Awake. Alert. Nonfocal, nonlateralizing. Skin: No rash. Normal color. No pallor. Musculoskeletal: No pedal edema. Full range of motion extremities. Const Vital Signs: 04/05/23 20:33 04/05/23 20:36 04/05/23 21:17 Temperature 97.9 F 97.9 F Temperature Source Oral Oral Pulse Rate 83 83 Respiratory Rate 16 16 Blood Pressure 173/102 H 176/102 H Blood Pressure Mean 125 126 Pulse Ox 96 96 Oxygen Delivery Method Room Air Room Air Room Air Heart Score History: Slightly/Non-Suspicious ECG: Normal Age: >45 - <65 years Risk Factors: >/= 3 Risk Factors or History of CAD Score: 3 MDM MDM MDM Narrative Medical decision making narrative: The differential diagnosis is acute coronary syndrome versus pulmonary embolism versus aortic dissection versus nonspecific chest pain. I have low suspicion for pulmonary embolism because she is already on anticoagulants and she is not tachycardic, she is not hypoxic either. I do not feel D-dimer or CT of the chest is indicated because she is already on anticoagulants. I reviewed the prehospital EKG which showed sinus tachycardia in the 120's. However, on the monitor here, her heart rate is in the 80s. No STEMI on her prehospital EKG. I have low suspicion for aortic dissection as she has no tearing back pain and equal pulses bilaterally. I do feel that serial enzymes are warranted along with chest pain workup. She will be given aspirin. She had already received 3 nitroglycerin per squad and is currently pain-free. I reviewed her laboratory work here today and she has a normal white count of 8.9, hemoglobin 12.4, hematocrit 39.2, platelet count normal at 226. Sodium is normal at 140 with potassium 3.6, chloride elevated at 109 which I think is nonspecific, BUN also elevated at 20 with a normal creatinine of 0.87. Glucose is elevated at 273 but I have low concern for diabetic ketoacidosis with her normal anion gap. Of significance is her troponin which is elevated at 152. Chest x-ray in 1 view interpreted by myself shows no pneumothorax or consolidation. As she is on Eliquis, I will refrain from using heparin. I confirmed this with her certified professional coder, Dr. Pritchard. Patient was discussed with the hospitalist, Dr. Myla Lopez, for admission. Her second troponin is pending. Disposition is admitted in stable condition. History & Record Review Discussion w/independent historian: Patient and Family Lab Data Attestation: I reviewed the patient's lab results. Labs: Laboratory Results - last 24 hr 04/05/23 21:03 WBC 8.9 RBC 4.64 Hgb 12.4 Hct 39.2 MCV 84.5 MCH 26.7 L MCHC 31.6 L RDW Std Deviation 48.5 H RDW Coeff of Dutch 15.9 H Plt Count 226 MPV 11.8 Immature Gran % (Auto) 0.200 Neut % (Auto) 62.9 Lymph % (Auto) 26.0 [place] % (Auto) 6.3 Eos % (Auto) 3.6 Baso % (Auto) 1.0 Absolute Neuts (auto) 5.6 Absolute Lymphs (auto) 2.32 Nucleated RBC % 0 Sodium 140 Potassium 3.6 Chloride 109 H Carbon Dioxide 26.0 Anion Gap 5 BUN 20 H Creatinine 0.87 Estim Creat Clear Calc 73.41 Est GFR (MDRD) Af Amer 85 Est GFR (MDRD) Non-Af 70 BUN/Creatinine Ratio 23.1 H Glucose 273 H Calcium 8.8 Troponin I High Sens 152 H* Radiography Diagnostic Testing: Clinical Impression(s) from Imaging Studies Chest X-Ray 04/05/23 21:16 IMPRESSION: Decreased inspiration with vascular crowding and mild bilateral mid lower lung atelectasis. Otherwise no acute cardiac pulmonary disease. Electronically Signed: Kandace Perez MD at 21:34 EST , Discharge Plan Triage Chief Complaint: Chest Pain ED Provider: Kaden Gardiner Dx/Rx/DC Orders Primary Care Provider: Fara Bernal
--- OUTSIDE RECORDS SUMMARY | 2023-04-05 20:55 | XMS RPT_ITS | CCD ---
Author Name Unknown Address [address] [place] [address] Organization [facility] Care Team Providers Care Self Propelled Dredge Operator Name Role Phone Nadya BORJA, Gail Ca Unavailable Unavailable Steve Centeno Unavailable Unavailable Steve Centeno Unavailable Unavailable Margaret Sun Primary Care Provider Allergies Allergy Classification Reported Allergen(s) Allergy Type Date of Onset Reaction(s) Facility (3 sources) Acetaminophen / HYDROcodone Drug Allergy 3 [facility] Work Phone: (3 sources) Lisinopril Drug Allergy 4 cough [facility] Work Phone: (3 sources) Penicillin Drug Allergy 1 [facility] Work Phone: (3 sources) GRASSES AND TREES drug allergy 5 [facility] Work Phone: (1 source) Acetaminophen / HYDROcodone Drug Allergy 2 Mental Status Change [facility] (1 source) Penicillins Drug Allergy 2 Other: See Comments [facility] Medications Completed/Discontinued Medications Medication Drug Class(es) Dates Sig (Normalized) Sig (Original) amLODIPine 5 mg oral tablet (6 sources) Dihydropyridine Calcium Channel Arti End: 06-26-2013 take 1 tablet by mouth once daily NORVASC 5 MG TABS One tablet by mouth daily AMLODIPINE BESYLATE [id number] Mario Knight aspirin 81 mg oral tablet (12 sources) Platelet Aggregation Inhibitor, Nonsteroidal Anti-inflammatory Drug Start: 06-19-2013 take 1 tablet by mouth once daily ASPIRIN EC 81 MG TBEC One tablet by mouth daily ASPIRIN [id number] Yesica Benjamin RN Problems Active Problems Problem [...] disease (6 sources) Atherosclerotic heart disease of [place] coronary artery without angina pectoris; Translations: [Old [...] (6 sources) Long-term drug therapy; Translations: [Other dog hair clipper (current) drug therapy] Onset: 4 11-16-2016 Past [...] (Body Mass Index) 34.67 kg/m2 Steve Jenkinsoster [employer] Work Phone: 11-17-2016 15:35-0400 BP [...] BP Diastolic 70 mm[Hg] Gail Covington RN [facility] Work Phone: 05-06-2016 09:46-0400 BP Systolic 124 mm[Hg] [facility] Work Phone: 05-06-2016 09:46-0400 Height 162.56 cm Gail Covington RN [facility] Work Phone: 05-06-2016 09:46-0400 Pulse (Heart Rate) 80 /min Gail Jenkinsoster [employer] [employer] [facility] Work Phone: 05-06-2016 09:46-0400 Respiratory Rate [...] Patient encounter procedure Isrrael Santos Work Phone: [facility] Start: 07-16-2008 Results Only Isrrael Santos Work Phone: [facility] Procedures Date Procedure Procedure Detail Performing Clinician Start: 11-17-2016 End: 11-17-2016 Dietary management education, guidance, and counseling Steve Centeno Start: 11-17-2016 End: 11-17-2016 ADJUNCT PROFESSOR OF LAW Darien Wilcox MOTOR OVERHAULER Work Phone: Start: 11-17-2016 End: 11-17-2016 Follow Up Appt 6 months Darien Wilcox MOTOR OVERHAULER Work Phone: Start: 05-06-2016 End: 05-06-2016 Follow [...] Roland Work Phone: Start: 04-14-2015 End: 04-14-2015 ADJUNCT PROFESSOR OF LAW Yesica Narvaez PA-C Work Phone: Start: 04-14-2015 End: 04-14-2015 Follow Up Appt 6 months Yesica ma PA-C Work Phone: Start: 02-16-2015 End: 03-02-2015 *CBC with Differential Bebe R Nav SOFTWARE SUPPORT SPECIALIST Work Phone: Start: 02-16-2015 End: 03-02-2015 *CMP Complete Metabolic Panel Bebe R Jos labach SOFTWARE SUPPORT SPECIALIST Work Phone: Start: 02-16-2015 End: 03-02-2015 Lactate dehydrogenase [Enzymatic activity/volume] in Serum or Plasma Bebe R Nav SOFTWARE SUPPORT SPECIALIST Work Phone: Start: 02-16-2015 End: 03-02-2015 Urate [Mass/volume] in Serum or Plasma Bebe R Nav SOFTWARE SUPPORT SPECIALIST Work Phone: Start: 12-09-2014 End: 04-15-2016 Magnesium [...] 02-17-2014 End: 05-29-2014 *CBC with Differential Kirill Roland Work Phone: Start: 02-17-2014 End: 05-29-2014 Lactate [...] Sheng Pritchard MD Start: 09-06-2013 End: 09-06-2013 ADJUNCT PROFESSOR OF LAW Yesica Narvaez PA-C Work Phone: Start: 09-06-2013 End: 05-21-2014 Ct thorax w/o & w/contrast material Yesica Narvaez PA-C Work Phone: Start: 09-06-2013 End: 09-06-2013 Follow Up Appt 3 months Yesica ma PA-C Work Phone: Start: 09-06-2013 End: 05-21-2014 Nuclear stress test -exercise Yesica Narvaez PA-C Work Phone: Start: 06-26-2013 End: 09-02-2013 *Hepatic Function Panel Kirill Palmer Start: 06-26-2013 End: 06-26-2013 ADJUNCT PROFESSOR OF LAW Sheng Pritchard MD Start: 06-26-2013 End: 06-26-2013 [...] Author Start: 10-15-2019 Influenza vaccination INFLUENZA (#1) [facility] Start: 04-06-2018 LIPID SCREEN LIPID SCREEN [facility] Start: 05-23-2017 End: 05-23-2017 Appointment Appointment [facility] Work Phone: Start: 11-17-2016 End: 11-17-2016 Appointment Appointment [facility] Work Phone: Start: 11-17-2016 End: 11-17-2016 *Hepatic Function Panel *Hepatic Function Panel [facility] Work Phone: Start: 11-17-2016 End: 11-17-2016 ADJUNCT PROFESSOR OF LAW ADJUNCT PROFESSOR OF LAW [facility] Work Phone: Start: 11-17-2016 End: 11-17-2016 Follow Up Appt 6 months Follow Up Appt 6 months [facility] Work Phone: Start: 11-17-2016 End: 11-17-2016 Lipid 1996 panel *Lipid Profile CC PCP [facility] Work Phone: Start: 08-30-2016 End: 03-03-2016 *CBC w/Diff - oncology ONLY *CBC w/Diff - oncology ONLY [facility] Work Phone: Start: 08-30-2016 End: 03-03-2016 *CMP Complete Metabolic Panel *CMP Complete Metabolic Panel [facility] Work Phone: Start: 08-30-2016 End: 03-03-2016 LDH enzyme act/vol *LDH -LDH (Lactate Dehydrogenase) [facility] Work Phone: Start: 05-06-2016 End: 05-06-2016 Follow Up Appt 6 months Follow Up Appt 6 months [facility] Work Phone: Start: 05-06-2016 End: 05-06-2016 MMM MMM [facility] Work Phone: Start: 04-18-2016 DIABETES SCREEN DIABETES SCREEN [facility] Start: 03-03-2016 End: 09-10-2015 *CBC with Differential *CBC with Differential [facility] Work Phone: Start: 03-03-2016 End: 03-03-2016 *CMP Complete Metabolic Panel *CMP Complete Metabolic Panel [facility] Work Phone: Start: 03-03-2016 End: 03-03-2016 LDH enzyme act/vol *LDH -LDH (Lactate Dehydrogenase) [facility] Work Phone: Start: 03-03-2016 End: 03-03-2016 Magnesium mass conc *Magnesium [facility] Work Phone: Start: 03-03-2016 End: 03-03-2016 Urate mass conc *Uric Acid Blood [facility] Work Phone: Start: 10-23-2015 End: [...] LDH enzyme act/vol *LDH -LDH (Lactate Dehydrogenase) [facility] Work Phone: Start: 09-03-2015 End: 09-10-2015 Urate mass conc *Uric Acid Blood [facility] Work Phone: Start: 04-27-2015 End: 05-06-2015 *CBC with Differential *CBC with Differential [facility] Work Phone: Start: 04-27-2015 End: 05-06-2015 *CMP Complete Metabolic Panel *CMP Complete Metabolic Panel [facility] Work Phone: Start: 04-27-2015 End: 05-06-2015 LDH enzyme act/vol *LDH -LDH (Lactate Dehydrogenase) [facility] Work Phone: Start: 04-27-2015 End: 05-06-2015 Urate mass conc *Uric Acid Blood [facility] Work Phone: Start: 04-14-2015 End: 04-14-2015 ADJUNCT PROFESSOR OF LAW ADJUNCT PROFESSOR OF LAW [facility] Work Phone: Start: 04-14-2015 End: 04-14-2015 Follow Up Appt 6 months Follow Up Appt 6 months [facility] Work Phone: Start: 02-16-2015 End: 03-02-2015 *CBC with Differential *CBC with Differential [facility] Work Phone: Start: 02-16-2015 End: 03-02-2015 *CMP Complete Metabolic Panel *CMP Complete Metabolic Panel [facility] Work Phone: Start: 02-16-2015 End: 03-02-2015 LDH enzyme act/vol *LDH -LDH (Lactate Dehydrogenase) [facility] Work Phone: Start: 02-16-2015 End: 03-02-2015 Urate mass conc *Uric Acid Blood [facility] Work Phone: Start: 12-17-2014 End: 12-17-2014 Radex foot complete minimum 3 views X-Ray, Foot [facility] Work Phone: Start: 12-15-2014 End: 12-15-2014 *CMP Complete Metabolic Panel *CMP Complete Metabolic Panel [facility] Work Phone: Start: 12-15-2014 End: 12-15-2014 *Microalbumin, Creatine Ratio, rand urine *Microalbumin, Creatine Ratio, rand urine [facility] Work Phone: Start: 12-15-2014 End: 12-15-2014 Hemoglobin A1c/Hemoglobin.total mass fraction (Bld) *HgA1C [facility] Work Phone: Start: 12-15-2014 End: 12-16-2014 Swallowing funcj w/cineradiograpy/vidradiog Cookie Swallow [facility] Work Phone: Start: 12-15-2014 End: 12-15-2014 Us guidance needle placement img s&i Ultrasonic guidance for needle placement biopsy, aspiration, imaging [facility] Work Phone: Start: 12-09-2014 End: 04-15-2016 Magnesium mass conc *Magnesium [facility] Work Phone: Start: 12-02-2014 End: 10-07-2014 *Hepatic Function Panel *Hepatic Function Panel [facility] Work Phone: Start: 12-02-2014 End: 10-07-2014 Lipid 1996 panel *Lipid Profile CC PCP [facility] Work Phone: Start: 11-24-2014 End: 10-23-2014 *CBC with Differential *CBC with Differential [facility] Work Phone: Start: 11-24-2014 End: 10-23-2014 *CMP Complete Metabolic Panel *CMP Complete Metabolic Panel [facility] Work Phone: Start: 11-24-2014 End: 10-23-2014 LDH enzyme act/vol *LDH -LDH (Lactate Dehydrogenase) [facility] Work Phone: Start: 11-24-2014 End: 10-23-2014 Magnesium mass conc *Magnesium [facility] Work Phone: Start: 11-24-2014 End: 10-23-2014 Urate mass conc *Uric Acid Blood [facility] Work Phone: Start: 10-07-2014 End: 10-07-2014 *BMP *BMP [facility] Work Phone: Start: 10-07-2014 End: 10-07-2014 CBC W Auto Differential panel - Blood *CBC without Diff [facility] Work Phone: Start: 10-07-2014 End: 10-07-2014 Ecg routine ecg w/least 12 lds w/i&r EKG (In office) [facility] Work Phone: Start: 10-07-2014 End: 10-07-2014 Fibrin D-dimer FEU IA mass conc (Bld) *DDIMQ - Fibrin Degrd Ultrsens Qual/Semiquan [facility] Work Phone: Start: 10-07-2014 End: 10-07-2014 Follow Up Appt 6 months Follow Up Appt 6 months [facility] Work Phone: Start: 10-07-2014 End: 10-07-2014 MMM MMM [facility] Work Phone: Start: 10-07-2014 End: 10-07-2014 Nuclear stress test -exercise Nuclear stress test -exercise [facility] Work Phone: Start: 08-25-2014 End: 08-25-2014 *CBC with Differential *CBC with Differential [facility] Work Phone: Start: 08-25-2014 End: 08-25-2014 *CMP Complete Metabolic Panel *CMP Complete Metabolic Panel [facility] Work Phone: Start: 08-25-2014 End: 08-25-2014 LDH enzyme act/vol *LDH -LDH (Lactate Dehydrogenase) [facility] Work Phone: Start: 08-25-2014 End: 08-25-2014 Urate mass conc *Uric Acid Blood [facility] Work Phone: Start: 05-26-2014 End: 05-29-2014 *CBC with Differential *CBC with Differential [facility] Work Phone: Start: 05-26-2014 End: 05-29-2014 *CMP Complete Metabolic Panel *CMP Complete Metabolic Panel [facility] Work Phone: Start: 05-26-2014 End: 05-29-2014 LDH enzyme act/vol *LDH -LDH (Lactate Dehydrogenase) [facility] Work Phone: Start: 05-26-2014 End: 05-29-2014 Urate mass conc *Uric Acid Blood [facility] Work Phone: Start: 05-08-2014 End: 05-19-2014 Arthrocentesis aspir&/inj small jt/bursa w/o us Injection, Joint (small) [facility] Work Phone: Start: 05-08-2014 End: 05-08-2014 Hemoglobin A1c/Hemoglobin.total mass fraction (Bld) HGB A1C (Office) [facility] Work Phone: Start: 05-08-2014 End: 05-19-2014 Triamcinolone acet inj NOS Kenalog per 10 mg [facility] Work Phone: Start: 02-17-2014 End: 05-29-2014 *CBC with Differential *CBC with Differential [facility] Work Phone: Start: 02-17-2014 End: 05-29-2014 LDH enzyme act/vol *LDH -LDH (Lactate Dehydrogenase) [facility] Work Phone: Start: 02-13-2014 End: 04-15-2016 *Hepatic Function Panel *Hepatic Function Panel [facility] Work Phone: Start: 02-13-2014 End: 04-15-2016 Lipid 1996 panel *Lipid Profile CC PCP [facility] Work Phone: Start: 01-07-2014 End: 05-29-2014 *CBC with Differential *CBC with Differential [facility] Work Phone: Start: 12-06-2013 End: 12-06-2013 Follow Up Appt 6 months Follow Up Appt 6 months [facility] Work Phone: Start: 12-06-2013 End: 12-06-2013 MMM MMM [facility] Work Phone: Start: 12-06-2013 End: 12-06-2013 Venous doppler Venous doppler [facility] Work Phone: Start: 09-06-2013 End: 09-06-2013 ADJUNCT PROFESSOR OF LAW ADJUNCT PROFESSOR OF LAW [facility] Work Phone: Start: 09-06-2013 End: 09-06-2013 Ct thorax w/o & w/contrast material CT Chest with and without Contrast [facility] Work Phone: Start: 09-06-2013 End: 09-06-2013 Follow Up Appt 3 months Follow Up Appt 3 months [email or web address] Work Phone: Start: 09-06-2013 End: 09-06-2013 Nuclear stress test -exercise Nuclear stress test -exercise [facility] Work Phone: Start: 06-26-2013 End: 09-02-2013 *Hepatic Function Panel *Hepatic Function Panel [facility] Work Phone: Start: 06-26-2013 End: 06-26-2013 ADJUNCT PROFESSOR OF LAW ADJUNCT PROFESSOR OF LAW [facility] Work Phone: Start: 06-26-2013 End: 06-26-2013 Ecg routine ecg w/least 12 lds w/i&r EKG (In office) [facility] Work Phone: Start: 06-26-2013 End: 06-26-2013 Echocardiography Echocardiogram (complete) [facility] Work Phone: Start: 06-26-2013 End: [...] of 2) SHINGRIX VACCINE (1 of 2) [facility] Start: 2009 Tuberculosis screening COLORECTAL CANCER SCREENING,SEE MODIFIER [facility] Start: 1999 Mammography MAMMOGRAM [facility] Start: 1989 HPV TESTING HPV TESTING [facility] Start: 02-28-1980 PAP TESTING PAP TESTING [facility] Start: 1978 Urine microalbumin profile DTAP,TDAP,TD (1 - Tdap) [facility] Start: 1977 HIV SCREENING HIV SCREENING [facility] Patient Education HYPERLIPIDEMIA [facility] Work Phone: Payers Date Payer Category Payer Unknown MMO [id number] [id number] 2004-2018 PPO [id number] Social History Date Type Detail Facility Tobacco smoking status NHIS Unknown if ev er smoked [facility] Sex Assigned At Not on file [facility] Medical Equipment Procedure Code Equipment Code Equipment Origin al Text Equipment Identifier Dates INSULIN PEN NEEDLE PEN NEEDLES 31G X 8 MM [id number] Start: 10-29-2010 End: 05-06-2016 Additional Source Comments Source Comments (unrecognize d section and content) In the event this informatio n is protected by the Federal Confidentiality of Alcohol and Drug Abuse Patient Records regulations: The Federal rules restrict any use of the information to criminally investigate or prosecute any alcohol or drug abuse patient.[facility] FOR RECORDS PERTAINING TO PATIENTS WHO ARE [...] BE BASED ON THE PRIMARY CLINICAL RECORDS. [facility] [employer] Top[employer]Level Domain [facility]. provides no warranty or guarantee of the accuracy or completeness of information in this document.
[2023-04-05 21:11] LABS: Absolute Lymphocyte Count 2.32 X10^3/uL (0.83-4.51); Absolute Neutrophil Count 5.6 X10^3/uL (2.0-7.7); Basophil# 0.09 X10^3/uL; Eosinophil# 0.32 X10^3/uL; Eosinophils% 3.6 % (0-5); Hematocrit 39.2 % (37-47); Hemoglobin 12.4 g/dL (12.0-15.0); Lymphocyte # 2.32 X10^3/ul (0.83-4.51); Mean Corp Hgb Conc 31.6 g/dL (32-36); Mean Corpuscular Hgb 26.7 pg (27.0-32.0); Mean Corpuscular Volume 84.5 fL (81-99); Mean Platelet Vol. 11.8 fl (6.2-12.0); Monocyte# 0.56 X10^3/uL; Monocyte% 6.3 % (0-10); NRBC Flagged by Analyzer 0 % (0-5); Neutrophil # 5.62 X10^3/uL (2.7-7.7); Neutrophil % 62.9 % (47-70); Platelet Count 226 K/mm3 (150-450); RBC Distribution Width CV 15.9 % (11.6-14.6); RBC Distribution Width SD 48.5 fl (35.1-43.9); Red Blood Count 4.64 M/mm3 (4.2-5.4); White Blood Count 8.9 K/mm3 (4.4-11.0)
--- NOTE | 2023-04-05 21:16 | RAD_ITS ---
STUDY: X-RAY CHEST REASON FOR EXAM: Female, 63 years old. chest pain TECHNIQUE: Single AP portable view of the chest. COMPARISON: 08/27/2020. FINDINGS: The lungs are underexpanded with vascular crowding. There is mild bilateral mid lower lung atelectasis, otherwise lung stack are clear. There is no demonstrated pleural abnormality. Borderline cardiomegaly with midline sternotomy wires. Normal mediastinum and tara. Normal visualized pulmonary arteries. There is atherosclerotic calcification of the aortic arch with tortuosity. There are diffuse degenerative changes of the visualized thoracic spine. Normal visualized ribs, clavicles, and shoulders. There is no demonstrated abnormality of the visualized soft tissue structures of the upper abdomen. RAD/Chest 1 View (Portable) IMPRESSION: Decreased inspiration with vascular crowding and mild bilateral mid lower lung atelectasis. Otherwise no acute cardiac pulmonary disease. Electronically Signed: Kandace Perez MD at 21:34 EST ,
[2023-04-05] MEDS: Aspirin 81 MG TAB.CHEW 324 MG PO (21:33)
[2023-04-05 21:35] LABS: Anion Gap 5 (5-15); BUN 20 mg/dL (7-18); BUN/Creat Ratio 23.1 RATIO (10-20); Calcium,Total 8.8 mg/dL (8.5-10.1); Chloride 109 mmol/L (98-107); Creatinine, Serum 0.87 mg/dL (0.55-1.02); EST Glomerular Filtration Rate 70 mL/min (>60); Est Glom Filt Rate - Afr Amer 85 mL/min (>60); Estimated Creatinine Clearance 73.41 ml/min; Glucose 273 mg/dL (74-106); Potassium 3.6 mmol/L (3.5-5.1); Sodium Level 140 mmol/L (136-145); Troponin-I HS (w/2H Reflex) 152 pg/mL (3.0-54.0)
[2023-04-05 23:09] LABS: Reflex Troponin-HS? (from REC) Y
--- NOTE | 2023-04-05 23:25 | HP.PCM.HOS_ITS ---
HPI - General General Date of Admission: 04/05/23 Date of Service: 04/05/23 Chief Complaint: Chest pain HPI Narrative The patient is a 63 y/o F w/ PMHx: PAF, PAD, Obesity, Hx VTE (DVT), Chronic anemia, Hx CVA with chronic dysarthria, Hx NH Lymphoma, Diabetes mellitus type II, MARLEN, HTN, HLD, Hx NSTEMI/CAD s/p CABG who presents to the [facility] ED on 04/05/23 with history of onset of chest discomfort with left upper extremity involvement starting approximately 6:30 in the evening on day of presentation with no associated nausea or emesis nor dyspnea with unchanged chronic cough describing the discomfort in her chest as a pressure with more discomfort in the left arm which is new and occurred while she was sitting in bed at rest and given that it was ongoing and had lasted at least an hour prompted to eventually call EMS with discomfort resolved upon and eventual ED arrival. She notes the discomfort/pressure in her chest and discomfort in her LUE at its worst was 8/10 in severity. She again confirms she is chest pain free currently. Workup in the ED included T97.9, heart rate 83, BP 173/102, respiratory rate 16, 96% on room air, CBC with WC 8.9, hemoglobin 12.4, platelet 226 without marked shift, BMP with chloride 109, BUN/creatinine 20/0.89, glucose 273 otherwise not marked appearing, troponin 152, chest x-ray with decreased infiltration with vascular crowding and mild bilateral mid to lower lung atelectasis otherwise no acute cardiopulmonary findings, EKG with sinus tachycardia with no acute evidence of ischemia. In the ED patient administered FS ASA. ED discussed case with Dr. Pritchard. [facility] Medical History (Updated 04/05/23 @ 23:[address] Myla Lopez MD) Anemia Arthritis Chronic diastolic (congestive) heart failure CVA (cerebral vascular accident) (12/14/18) Diabetic retinopathy associated with type 2 diabetes mellitus Dysarthria Dyspnea Essential (primary) hypertension History of deep venous thrombosis (DVT) of distal vein of left lower extremity (04/13/13) History of non-Hodgkin's lymphoma (2012) History of non-ST elevation myocardial infarction (NSTEMI) (04/08/13) Hyperlipidemia IBS (irritable bowel syndrome) Incontinent of urine 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) Limb weakness neck/back pain Obesity MARLEN (obstructive sleep apnea) PAF (paroxysmal atrial fibrillation) Polycystic ovaries Shoulder pain Skin lesion of left lower extremity Slurred speech Type 2 diabetes mellitus Home Medications cholecalciferol (vitamin D3) 50 mcg (2,000 unit) capsule 2,000 units PO DAILY 05/20/19 [History Last Taken Unknown] albuterol sulfate 90 mcg/actuation aerosol inhaler (Proventil HFA) 2 puff inhal ation Q6H PRN Sob &/Or Wheezing 08/14/19 [History Last Taken Unknown] metformin 1,000 mg tablet 1,000 mg PO BID 04/02/20 [History Last Taken Unknown] pen needle, diabetic 31 gauge x 06/28 #1,200 ea 04/02/20 [History Last Taken Unknown] furosemide 40 mg tablet 40 mg PO QAM #90 tabs 05/17/21 [Rx Last Taken Unknown] losartan 50 mg tablet 50 mg PO DAILY #90 tabs 07/26/21 [Rx Last Taken Unknown] flash glucose sensor (OmnyPayStyle Moses 14 Day Sensor kit) #1 ea 10/19/21 [History Last Taken Unknown] insulin degludec 100 unit/mL (3 mL) subcutaneous pen (Tresiba FlexTouch U-100 insulin) 50 unit subcut DAILY 10/19/21 [History Last Taken Unknown] apixaban 5 mg tablet (Eliquis) See Rx Instructions .Route .COMPLEX #60 TABLETS 03/24/22 [Rx Last Taken Unknown] atorvastatin 40 mg tablet (Lipitor) 40 mg PO DAILY #90 tabs 08/23/22 [Rx Last Taken Unknown] insulin aspart U-100 100 unit/mL (3 mL) subcutaneous pen 30 unit subcut .COMPLEX 08/23/22 [History Last Taken Unknown] insulin aspart U-100 100 unit/mL (3 mL) subcutaneous pen 40 unit subcut BREAKFAST 08/23/22 [History Last Taken Unknown] metoprolol succinate 50 mg tablet,extended release 24 hr 50 mg PO DAILY #90 tabs 08/23/22 [Rx Last Taken Unknown] tramadol 50 mg tablet 50 mg PO Q6H 3 days #12 tabs 03/18/23 [Rx Last Taken Unknown] amlodipine 2.5 mg tablet See Rx Instructions .Route .COMPLEX #90 tabs 03/22/23 [Rx Last Taken Unknown] Allergy/AdvReac Type Severity Reaction Status Date / Time Penicillins Allergy Severe Rash Verified 04/05/23 20:32 grass pollen Allergy Intermediate Other Verified 04/05/23 20:32 tree and shrub pollen Allergy Intermediate Other Verified 04/05/23 20:32 lisinopril AdvReac Intermediate Other Verified 04/05/23 20:32 hydrocodone bitartrate AdvReac Mild Unknown Verified 04/05/23 20:32 [From Vicodin] losartan AdvReac Heart Burn Verified 04/05/23 20:32 Family History Father , 65 Diabetes Hypertension cabg Mother , Age 65 Hypertension Renal failure Sister Cancer Sister Diabetes Cardiomegaly Surgical History Atherosclerotic heart disease of [place] coronary artery without angina pectoris H/O coronary artery bypass surgery (04/10/13) History of left heart catheterization (07/26/18) Social History Smoking Status: Never smoker alcohol intake: never substance use type: does not use caffeine: Yes Type: coffee Number of servings: 2 ROS ROS Narrative Admission Review of Systems: CONSTITUTIONAL: No weight loss, fever, chills, + weakness or fatigue. HEENT: Eyes: No visual loss, blurred vision, double vision or yellow sclerae. Ears, Nose, Throat: No hearing loss, sneezing, congestion, runny nose or sore throat. SKIN: No rash or itching, lesions, wounds. CARDIOVASCULAR: + chest pain, chest pressure or chest discomfort. No palpitations, edema, orthopnea, syncopal events. RESPIRATORY: + Chronic cough. No shortness of breath, no marked productive sputum, wheezing, hemoptysis. GASTROINTESTINAL: No anorexia, nausea, vomiting or diarrhea, abdominal pain, melena, BRBPR. GENITOURINARY: No dysuria, frequency, urgency or retention. NEUROLOGICAL: + History of CVA with chronic dysarthria. No headache, dizziness, syncope, paralysis, ataxia, numbness or tingling in the extremities, focal weakness, change in bowel or bladder control, seizure. MUSCULOSKELETAL: + muscle, back pain, joint pain or stiffness. HEMATOLOGIC: No anemia. Easy bleeding/bruising. LYMPHATICS: No enlarged nodes. No history of splenectomy. PSYCHIATRIC: No history of depression or anxiety. ENDOCRINOLOGIC: No reports of sweating, cold or heat intolerance. No polyuria or polydipsia. ALLERGIES: No history of asthma, hives, eczema or rhinitis. Vital Signs Vital Signs Vital Signs: 04/05/23 20:33 04/05/23 20:36 04/05/23 21:17 Temperature 97.9 F 97.9 F Temperature Source Oral Oral Pulse Rate 83 83 Respiratory Rate 16 16 Blood Pressure 173/102 H 176/102 H Blood Pressure Mean 125 126 Pulse Ox 96 96 Oxygen Delivery Method Room Air Room Air Room Air Weight Weight: 211 lb 6.773 oz Body Mass Index (BMI) 36.3 Physical Exam Narrative Physical Examination: General: Awake, alert, oriented x 3 and cooperative, seated upright in the ED bed in no apparent distress, currently chest pain free. Skin: Normal color, normal turgor, no icterus, no cyanosis. HEENT: AT/NC, EOMI, PERRLA, mildly dry MM, no carotid bruits or JVD noted. Lungs: CTA bilaterally, moderate effort, mild decrease BL bases, no rales, ronchi or wheezing. Heart: Regular rate and rhythm; no gallop, rub audible. Abdomen: Soft, obese, NTTP, ND, mildly hyperactive BS, no HSM. Extremities: No cyanosis, clubbing, or edema. Neurological: Patient awake, alert, oriented as noted, cognitive function int act; pupils equally reactive to light and accommodation, cranial nerves grossly normal, moving all 4 extremities, history prior CVA w/ chronic dysarthria but minimally noted, no focal deficits, strength mildly globally decreased secondary to acute presentation complaints. Psychiatric: Affect appears fatigued otherwise normal, no acute evidence of depressive or anxiety feelings. Results Lab / Micro Data 04/05/23 21:03 04/05/23 21:03 Labs: Laboratory Results - last 24 hr 04/05/23 21:03: WBC 8.9, RBC 4.64, Hgb 12.4, Hct 39.2, MCV 84.5, MCH 26.7 L, MCHC 31.6 L, RDW Std Deviation 48.5 H, RDW Coeff of Dutch 15.9 H, Plt Count 226, MPV 11.8, Immature Gran % (Auto) 0.200, Neut % (Auto) 62.9, Lymph % (Auto) 26.0, [place] % (Auto) 6.3, Eos % (Auto) 3.6, Baso % (Auto) 1.0, Absolute Neuts (auto) 5.6, Absolute Lymphs (auto) 2.32, Nucleated RBC % 0, Sodium 140, Potassium 3.6, Chloride 109 H, Carbon Dioxide 26.0, Anion Gap 5, BUN 20 H, Creatinine 0.87, Estim Creat Clear Calc 73.41, Est GFR (MDRD) Af Amer 85, Est GFR (MDRD) Non-Af 70, BUN/Creatinine Ratio 23.1 H, Glucose 273 H, Calcium 8.8, Troponin I High Sens 152 H* Imaging Radiology Impression Chest X-Ray 04/05/23 21:16 IMPRESSION: Decreased inspiration with vascular crowding and mild bilateral mid lower lung atelectasis. Otherwise no acute cardiac pulmonary disease. Electronically Signed: Kandace Perez MD at 21:34 EST , Assessment & Plan Assessment/Plan (1) NSTEMI, initial episode of care: PLAN: Plan The patient is a 63 y/o F w/ PMHx: PAF, PAD, Obesity, Hx VTE (DVT), Chronic anemia, Hx CVA with chronic dysarthria, Hx NH Lymphoma, Diabetes mellitus type II, MARLEN, HTN, HLD, Hx NSTEMI/CAD s/p CABG who presents to the [facility] ED on 04/05/23 with history of onset of chest discomfort with left upper extremity involvement starting approximately 6:30 in the evening on day of presentation with no associated nausea or emesis nor dyspnea with unchanged chronic cough describing the discomfort in her chest as a pressure with more discomfort in the left arm which is new and occurred while she was sitting in bed at rest and given that it was ongoing and had lasted at least an hour prompted to eventually call EMS with discomfort resolved upon and eventual ED arrival. #1. Chest Pain w/ Acute NSTEMI: EKG in ED w/ sinus tachycardia with no acute evidence of ischemia, CXR w/ no acute cardiopulmonary findings, Trop elevated, 152. Will admit to PCU, maintain on a monitored bed, continue serial cardiac enzymes and EKGs. Obtain magnesium level upon admission. Continue medical management w/ asa, BB, statin w/ AM FLP. ECHO requested. Will temporally hold home Eliquis and may consider transition to heparin drip at next dose due; however, current Cardiology per discussion with ED recommended not to start. Cardiology consulted. Maintain NPO after midnight pending their evaluation. ASA, NG. #2. PAD: Following with vascular surgery, per most recent prior note symptoms mild with recommended continued structured exercise, continue aspirin, statin, metoprolol, losartan home regimen. Will temporally hold home Eliquis and may consider transition to heparin drip at next dose due; however, current Cardiology per discussion with ED recommended not to start. #3. CAD: s/p CABG 2003 w/ BAUM to the LAD and a saphenous vein graft to circumflex artery with most recent prior cardiology note noting that the distal RCA was not bypassed, last noted cardiac catheterization 07/2018 with circumflex artery occluded, RCA occluded with BAUM to LAD patent, saphenous vein graft to circumflex patent, collateral flow noted left to right with EF at that time 60% with inferior basilar wall motion abnormalities. Will temporally hold home Eliquis and may consider transition to heparin drip at next dose due; however, current Cardiology per discussion with ED recommended not to start. Continue asa, statin, metoprolol, losartan home regimen. #4. History CVA: Patient status post CVA left thalamic extending to the left cerebral peduncle 12/2018 with residual dysarthria, continue aspirin, statin, hypertensive regimen, diabetic regimen with adjustments as noted. Will temporally hold home Eliquis and may consider transition to heparin drip at next dose due; however, current Cardiology per discussion with ED recommended not to start. #5. PAF: 06/05/2020 echocardiogram with EF 55%, trivial MVI. Will temporally hold home Eliquis and may consider transition to heparin drip at next dose due; however, current Cardiology per discussion with ED recommended not to start. #6. Diabetes mellitus type II: Hold oral home regimen, continue home insulin re gimen, ADA diet until n.p.o. status, accu checks w/ ISS. #7. Hypertension: Continue home regimen including metoprolol, losartan, Lasix, PRN hydralazine. #8. Hyperlipidemia: Continue home statin regimen. AM FLP. #9. Obesity: Weight loss and lifestyle changes encouraged. #10. History of VTE: Patient with history of DVT, temporally holding oral Eliquis given presentation, may consider transition to heparin drip at next dose due; however, current Cardiology per discussion with ED recommended not to start. #11. History non-Hodgkin's lymphoma: s/p 6 cycles of R-CHOP, finished 09/2012, considered in remission, encouraged continued outpatient follow-up with Oncology as previously arranged. #12. MARLEN: Not using CPAP, notes used for 1 year and did not feel it was helping thus stopped. Encouraged reconsideration. #13. DVT prophylaxis: Will temporally hold home Eliquis and may consider transition to heparin drip at next dose due; however, current Cardiology per discussion with ED recommended not to start. SCDs. #14. CODE status: Patient HCPOA and LW are not in place. She notes her would be her decision maker if she was unable. Discussed CODE status at length including difference between FULL code, DNR-CCA and DNR-CC status. Following discussions about the differences in these status, requested Full Code status. Advanced Care Planning Face to Face Time: 16 minutes. Charges/Coding Visit Charges Inpatient E&M: 11923 Init Hosp L3 Procedures Hospitalists Procedures: 31029 Advncd Care Plan 30 Min
--- NOTE | 2023-04-05 23:34 | EKG12_ITS ---
Test Reason : ADMISSION EKG Blood Pressure : / mmHG Vent. Rate : 075 BPM Atrial Rate : 075 BPM P-R Int : 162 ms QRS Dur : 106 ms QT Int : 418 ms P-R-T Axes : -07 -03 086 degrees QTc Int : 466 ms Normal sinus rhythm Left ventricular hypertrophy with repolarization abnormality ( Ona product ) Abnormal ECG When compared with ECG of 05-APR-2023 20:24, MANUAL COMPARISON REQUIRED, DATA IS UNCONFIRMED Confirmed by KYRA GAMEZ, JACEY ([id number]), editor index ALEXSANDER PIPER ([id number]) on 04/07/2023 6:44:54 AM Referred By: Myla Lopez Confirmed By:JACEY RAE MD
--- OUTSIDE RECORDS SUMMARY | 2023-04-05 23:46 | XMS RPT_ITS | CCD ---
Author Name Unknown Address [address] [place] [address] Organization [facility] Care Team Providers Care Elementary Supervisor Name Role Phone Nadya BORJA, Gail Ca Unavailable Unavailable Steve Centeno Unavailable Unavailable Steve Centeno Unavailable Unavailable Margaret Sun Primary Care Provider Allergies Allergy Classification Reported Allergen(s) Allergy Type Date of Onset Reaction(s) Facility (3 sources) Acetaminophen / HYDROcodone Drug Allergy 3 [facility] Work Phone: (3 sources) Lisinopril Drug Allergy 4 cough [facility] Work Phone: (3 sources) Penicillin Drug Allergy 1 [facility] Work Phone: (3 sources) GRASSES AND TREES drug allergy 5 [facility] Work Phone: (1 source) Acetaminophen / HYDROcodone Drug Allergy 2 Mental Status Change [facility] (1 source) Penicillins Drug Allergy 2 Other: See Comments [facility] Medications Completed/Discontinued Medications Medication Drug Class(es) Dates Sig (Normalized) Sig (Original) amLODIPine 5 mg oral tablet (6 sources) Dihydropyridine Calcium Channel Arti End: 06-26-2013 take 1 tablet by mouth once daily NORVASC 5 MG TABS One tablet by mouth daily AMLODIPINE BESYLATE [id number] Mario Knight aspirin 81 mg oral tablet (12 sources) Platelet Aggregation Inhibitor, Nonsteroidal Anti-inflammatory Drug Start: 06-19-2013 take 1 tablet by mouth once daily ASPIRIN EC 81 MG TBEC One tablet by mouth daily ASPIRIN [id number] Yesica Benjamin RN Problems Active Problems Problem [...] disease (6 sources) Atherosclerotic heart disease of jena coronary artery without angina pectoris; Translations: [Old [...] (6 sources) Long-term drug therapy; Translations: [Other terminal operator (current) drug therapy] Onset: 4 11-16-2016 Past [...] (Body Mass Index) 34.67 kg/m2 Steve Jenkinsoster [employer] Work Phone: 11-17-2016 15:35-0400 BP [...] 09:46-0400 Height 162.56 cm Gail Covington RN [facility] Work Phone: 05-06-2016 09:46-0400 Pulse (Heart Rate) 80 /min Gail Jenkinsoster [employer] Work Phone: 05-06-2016 09:46-0400 Respiratory Rate [...] Patient encounter procedure Isrrael Santos Work Phone: [facility] Start: 07-16-2008 Results Only Isrrael Santos Work Phone: [facility] Procedures Date Procedure Procedure Detail Performing Clinician Start: 11-17-2016 End: 11-17-2016 Dietary management education, guidance, and counseling Steve Centeno Start: 11-17-2016 End: 11-17-2016 FEDERAL APPELLATE LAW CLERK Darien iWlcox FORECLOSURE CLERK Work Phone: Start: 11-17-2016 End: 11-17-2016 Follow Up Appt 6 months Darien Wilcox FORECLOSURE CLERK Work Phone: Start: 05-06-2016 End: 05-06-2016 Follow [...] Roland Work Phone: Start: 04-14-2015 End: 04-14-2015 FEDERAL APPELLATE LAW CLERK Yesica Narvaez PA-C Work Phone: Start: 04-14-2015 End: 04-14-2015 Follow Up Appt 6 months Yesica ma PA-C Work Phone: Start: 02-16-2015 End: 03-02-2015 *CBC with Differential Bebe R Nav MACHINE COIL ASSEMBLER Work Phone: Start: 02-16-2015 End: 03-02-2015 *CMP Complete Metabolic Panel Bebe R Jos labach MACHINE COIL ASSEMBLER Work Phone: Start: 02-16-2015 End: 03-02-2015 Lactate dehydrogenase [Enzymatic activity/volume] in Serum or Plasma Bebe R Nav MACHINE COIL ASSEMBLER Work Phone: Start: 02-16-2015 End: 03-02-2015 Urate [Mass/volume] in Serum or Plasma Bebe R Nav MACHINE COIL ASSEMBLER Work Phone: Start: 12-09-2014 End: 04-15-2016 Magnesium [...] MD Start: 12-06-2013 End: 12-11-2013 Venous doppler Shneg Pritchard MD Start: 09-06-2013 End: 09-06-2013 FEDERAL APPELLATE LAW CLERK Yesica Narvaez PA-C Work Phone: Start: 09-06-2013 End: 05-21-2014 Ct thorax w/o & w/contrast material Yesica Narvaez PA-C Work Phone: Start: 09-06-2013 End: 09-06-2013 Follow Up Appt 3 months Yesica ma PA-C Work Phone: Start: 09-06-2013 End: 05-21-2014 Nuclear stress test -exercise Yesica Narvaez PA-C Work Phone: Start: 06-26-2013 End: 09-02-2013 *Hepatic Function Panel Kirill Palmer Start: 06-26-2013 End: 06-26-2013 FEDERAL APPELLATE LAW CLERK Sheng Pritchard MD Start: 06-26-2013 End: 06-26-2013 [...] Author Start: 10-15-2019 Influenza vaccination INFLUENZA (#1) [facility] Start: 04-06-2018 LIPID SCREEN LIPID SCREEN [facility] Start: 05-23-2017 End: 05-23-2017 Appointment Appointment [facility] Work Phone: Start: 11-17-2016 End: 11-17-2016 Appointment Appointment [facility] Work Phone: Start: 11-17-2016 End: 11-17-2016 *Hepatic Function Panel *Hepatic Function Panel [facility] Work Phone: Start: 11-17-2016 End: 11-17-2016 FEDERAL APPELLATE LAW CLERK FEDERAL APPELLATE LAW CLERK [facility] Work Phone: Start: 11-17-2016 End: 11-17-2016 Follow Up Appt 6 months Follow Up Appt 6 months [facility] Work Phone: Start: 11-17-2016 End: 11-17-2016 Lipid 1996 panel *Lipid Profile CC PCP [facility] Work Phone: Start: 08-30-2016 End: 03-03-2016 *CBC w/Diff - oncology ONLY *CBC w/Diff - oncology ONLY [facility] Work Phone: Start: 08-30-2016 End: 03-03-2016 *CMP Complete Metabolic Panel *CMP Complete Metabolic Panel [facility] Work Phone: Start: 08-30-2016 End: 03-03-2016 LDH enzyme act/vol *LDH -LDH (Lactate Dehydrogenase) [facility] Work Phone: Start: 05-06-2016 End: 05-06-2016 Follow Up Appt 6 months Follow Up Appt 6 months [facility] Work Phone: Start: 05-06-2016 End: 05-06-2016 MMM MMM [facility] Work Phone: Start: 04-18-2016 DIABETES SCREEN DIABETES SCREEN [facility] Start: 03-03-2016 End: 09-10-2015 *CBC with Differential *CBC with Differential [facility] Work Phone: Start: 03-03-2016 End: 03-03-2016 *CMP Complete Metabolic Panel *CMP Complete Metabolic Panel [facility] Work Phone: Start: 03-03-2016 End: 03-03-2016 LDH enzyme act/vol *LDH -LDH (Lactate Dehydrogenase) [facility] Work Phone: Start: 03-03-2016 End: [...] LDH enzyme act/vol *LDH -LDH (Lactate Dehydrogenase) [facility] Work Phone: Start: 09-03-2015 End: 09-10-2015 Urate mass conc *Uric Acid Blood [facility] Work Phone: Start: 04-27-2015 End: 05-06-2015 *CBC with Differential *CBC with Differential [facility] Work Phone: Start: 04-27-2015 End: 05-06-2015 *CMP Complete Metabolic Panel *CMP Complete Metabolic Panel [facility] Work Phone: Start: 04-27-2015 End: 05-06-2015 LDH enzyme act/vol *LDH -LDH (Lactate Dehydrogenase) [facility] Work Phone: Start: 04-27-2015 End: 05-06-2015 Urate mass conc *Uric Acid Blood [facility] Work Phone: Start: 04-14-2015 End: 04-14-2015 FEDERAL APPELLATE LAW CLERK FEDERAL APPELLATE LAW CLERK [facility] Work Phone: Start: 04-14-2015 End: 04-14-2015 Follow Up Appt 6 months Follow Up Appt 6 months [facility] Work Phone: Start: 02-16-2015 End: 03-02-2015 *CBC with Differential *CBC with Differential [facility] Work Phone: Start: 02-16-2015 End: 03-02-2015 *CMP Complete Metabolic Panel *CMP Complete Metabolic Panel [facility] Work Phone: Start: 02-16-2015 End: 03-02-2015 LDH enzyme act/vol *LDH -LDH (Lactate Dehydrogenase) [facility] Work Phone: Start: 02-16-2015 End: 03-02-2015 Urate mass conc *Uric Acid Blood [facility] Work Phone: Start: 12-17-2014 End: 12-17-2014 Radex foot complete minimum 3 views X-Ray, Foot [facility] Work Phone: Start: 12-15-2014 End: 12-15-2014 *CMP Complete Metabolic Panel *CMP Complete Metabolic Panel [facility] Work Phone: Start: 12-15-2014 End: 12-15-2014 *Microalbumin, Creatine Ratio, rand urine *Microalbumin, Creatine Ratio, rand urine [facility] Work Phone: Start: 12-15-2014 End: 12-15-2014 Hemoglobin A1c/Hemoglobin.total mass fraction (Bld) *HgA1C [facility] Work Phone: Start: 12-15-2014 End: 12-16-2014 Swallowing funcj w/cineradiograpy/vidradiog Cookie Swallow [facility] Work Phone: Start: 12-15-2014 End: 12-15-2014 Us guidance needle placement img s&i Ultrasonic guidance for needle placement biopsy, aspiration, imaging [facility] Work Phone: Start: 12-09-2014 End: 04-15-2016 Magnesium mass conc *Magnesium [facility] Work Phone: Start: 12-02-2014 End: 10-07-2014 *Hepatic Function Panel *Hepatic Function Panel [facility] Work Phone: Start: 12-02-2014 End: 10-07-2014 Lipid 1996 panel *Lipid Profile CC PCP [facility] Work Phone: Start: 11-24-2014 End: [...] 10-23-2014 Urate mass conc *Uric Acid Blood [facility] Work Phone: Start: 10-07-2014 End: [...] (Bld) *DDIMQ - Fibrin Degrd Ultrsens Qual/Semiquan [facility] Work Phone: Start: 10-07-2014 End: 10-07-2014 Follow Up Appt 6 months Follow Up Appt 6 months [facility] Work Phone: Start: 10-07-2014 End: 10-07-2014 MMM MMM [facility] Work Phone: Start: 10-07-2014 End: 10-07-2014 Nuclear stress test -exercise Nuclear stress test -exercise [facility] Work Phone: Start: 08-25-2014 End: 08-25-2014 *CBC with Differential *CBC with Differential [facility] Work Phone: Start: 08-25-2014 End: 08-25-2014 *CMP Complete Metabolic Panel *CMP Complete Metabolic Panel [facility] Work Phone: Start: 08-25-2014 End: 08-25-2014 LDH enzyme act/vol *LDH -LDH (Lactate Dehydrogenase) [facility] Work Phone: Start: 08-25-2014 End: 08-25-2014 Urate mass conc *Uric Acid Blood [facility] Work Phone: Start: 05-26-2014 End: 05-29-2014 *CBC with Differential *CBC with Differential [facility] Work Phone: Start: 05-26-2014 End: 05-29-2014 *CMP Complete Metabolic Panel *CMP Complete Metabolic Panel [facility] Work Phone: Start: 05-26-2014 End: 05-29-2014 LDH enzyme act/vol *LDH -LDH (Lactate Dehydrogenase) [facility] Work Phone: Start: 05-26-2014 End: 05-29-2014 Urate mass conc *Uric Acid Blood [facility] Work Phone: Start: 05-08-2014 End: 05-19-2014 Arthrocentesis aspir&/inj small jt/bursa w/o us Injection, Joint (small) [facility] Work Phone: Start: 05-08-2014 End: 05-08-2014 Hemoglobin A1c/Hemoglobin.total mass fraction (Bld) HGB A1C (Office) [facility] Work Phone: Start: 05-08-2014 End: 05-19-2014 Triamcinolone acet inj NOS Kenalog per 10 mg [facility] Work Phone: Start: 02-17-2014 End: 05-29-2014 *CBC with Differential *CBC with Differential [facility] Work Phone: Start: 02-17-2014 End: 05-29-2014 LDH enzyme act/vol *LDH -LDH (Lactate Dehydrogenase) [facility] Work Phone: Start: 02-13-2014 End: 04-15-2016 *Hepatic Function Panel *Hepatic Function Panel [facility] Work Phone: Start: 02-13-2014 End: 04-15-2016 Lipid 1996 panel *Lipid Profile CC PCP [facility] Work Phone: Start: 01-07-2014 End: 05-29-2014 *CBC with Differential *CBC with Differential [facility] Work Phone: Start: 12-06-2013 End: 12-06-2013 Follow Up Appt 6 months Follow Up Appt 6 months [facility] Work Phone: Start: 12-06-2013 End: 12-06-2013 MMM MMM [facility] Work Phone: Start: 12-06-2013 End: 12-06-2013 Venous doppler Venous doppler [facility] Work Phone: Start: 09-06-2013 End: 09-06-2013 FEDERAL APPELLATE LAW CLERK FEDERAL APPELLATE LAW CLERK [facility] Work Phone: Start: 09-06-2013 End: 09-06-2013 Ct thorax w/o & w/contrast material CT Chest with and without Contrast [facility] Work Phone: Start: 09-06-2013 End: 09-06-2013 Follow Up Appt 3 months Follow Up Appt 3 months [facility] Work Phone: Start: 09-06-2013 End: 09-06-2013 Nuclear stress test -exercise Nuclear stress test -exercise [facility] Work Phone: Start: 06-26-2013 End: 09-02-2013 *Hepatic Function Panel *Hepatic Function Panel [facility] Work Phone: Start: 06-26-2013 End: 06-26-2013 FEDERAL APPELLATE LAW CLERK FEDERAL APPELLATE LAW CLERK [facility] Work Phone: Start: 06-26-2013 End: 06-26-2013 Ecg routine ecg w/least 12 lds w/i&r EKG (In office) [facility] Work Phone: Start: 06-26-2013 End: 06-26-2013 Echocardiography [...] of 2) SHINGRIX VACCINE (1 of 2) [facility] Start: 2009 Tuberculosis screening COLORECTAL CANCER SCREENING,SEE MODIFIER [facility] Start: 1999 Mammography MAMMOGRAM [facility] Start: 1989 HPV TESTING HPV TESTING [facility] Start: 02-28-1980 PAP TESTING PAP TESTING [facility] Start: 1978 Urine microalbumin profile DTAP,TDAP,TD (1 - Tdap) [facility] Start: 1977 HIV SCREENING HIV SCREENING [facility] Patient Education HYPERLIPIDEMIA [facility] Work Phone: Payers Date Payer Category Payer Unknown MMO [id number] [id number] 2004-2018 PPO [id number] Social History Date Type Detail Facility Tobacco smoking status NHIS Unknown if ev er smoked [facility] Sex Assigned At Not on file [facility] Medical Equipment Procedure Code Equipment Code Equipment Origin al Text Equipment Identifier Dates INSULIN PEN NEEDLE PEN NEEDLES 31G X 8 MM [id number] Start: 10-29-2010 End: 05-06-2016 Additional Source Comments Source Comments (unrecognize d section and content) In the event this informatio n is protected by the Federal Confidentiality of Alcohol and Drug Abuse Patient Records regulations: The Federal rules restrict any use of the information to criminally investigate or prosecute any alcohol or drug abuse patient.[facility] FOR RECORDS PERTAINING TO PATIENTS WHO ARE [...] BE BASED ON THE PRIMARY CLINICAL RECORDS. [facility]. provides no warranty or guarantee of the accuracy or completeness of information in this document.
[2023-04-06] VITALS (16 sets, daily range): BP systolic 143–185; BP diastolic 56–114; PULSE 68–97; RESP 14–18; TEMP 36.1–36.6; O2SAT 96–99; BMI 35.0; BMI 35.1
[2023-04-06 00:23] LABS: Magnesium 1.4 mg/dL (1.6-2.6); Troponin-I HS 1492 pg/mL (3.0-54.0)
--- NOTE | 2023-04-06 00:50 | ECHOD_ITS ---
Reason For Study: CAD Procedure This was a 2D Doppler, Color Flow transthoracic echocardiogram. Exam performed portable in patient room. Left Ventricle Normal LV size. Moderate concentric left ventricular hypertrophy. The estimated ejection fraction is 55 %. Mild segmental systolic dysfunction (see wall motion). Stage 2 diastolic dysfunction. Mid- Inferior: Akinetic. Infero-Basal: Akinetic. The rest of the wall segments are normal. Right Ventricle Normal RV size. Normal systolic function. Atria Normal left atrium. Normal right atrium. Mitral Valve There is mild to moderate mitral annular calcification. Mild focal mitral valve calcification. Mild papillary muscle dysfunction of the mitral valve. Mild-Moderate (1-2+) eccentric mitral valve insufficiency. Tricuspid Valve Normal tricuspid valve. Mild to moderate (1-2+) tricuspid valve insufficiency. Pulmonary artery systolic pressure is 53 mmHg. Aortic Valve Trisinus/trileaflet aortic valve. Mild focal aortic valve calcification. Pulmonic Valve Normal pulmonic valve. Great Vessels Normal aortic root. The pulmonary artery is normal size. Normal inferior vena cava. Pericardium/Pleural No pericardial effusion. MMode/2D Measurements & Calculations LVIDd: 5.1 cm IVSd: 1.5 cm Ao root diam: 3.1 cm LVIDs: 3.7 cm LVPWd: 1.2 cm RVDd: 3.4 cm FS: 26.7 % LAV(MOD-bp): 59.0 ml LVAd ap4: 26.0 cm2 LVAd ap2: 28.4 cm2 LAV(MOD-bp) Indexed: 29.9 ml/m2 LVLd ap4: 7.3 cm LVLd ap2: 7.8 cm LAV(MOD-sp2): 56.5 ml EDV(MOD-sp4): 78.7 ml EDV(MOD-sp2): 92.0 ml LAV(MOD-sp4): 57.9 ml EDV(sp4-el): 78.3 ml EDV(sp2-el): 88.4 ml LVAs ap4: 18.8 cm2 LVAs ap2: 21.1 cm2 LVLs ap4: 6.6 cm LVLs ap2: 7.1 cm ESV(MOD-sp4): 47.7 ml ESV(MOD-sp2): 59.5 ml ESV(sp4-el): 45.6 ml ESV(sp2-el): 53.3 ml EF(MOD-sp4): 39.3 % EF(MOD-sp2): 35.3 % EF(sp4-el): 41.8 % SV(MOD-sp4): 31.0 ml SV(MOD-sp2): 32.5 ml SV(sp4-el): 32.7 ml LA dimension(2D): 4.5 cm LA A4 area: 18.9 cm2 RA A4 area: 15.4 cm2 TAPSE: 1.6 cm Time Measurements MV dec time: 0.13 sec Doppler Measurements & Calculations MV E max vincent: 125.5 cm/sec Lat Peak E' Vincent: 5.9 cm/sec Med Peak E' Vincent: 5.2 cm/sec MV A max vincent: 76.4 cm/sec E/E' lat: 21.4 E/E' med: 24.0 MV E/A: 1.6 MV dec slope: 939.5 cm/sec2 Ao V2 max: 151.6 cm/sec LV V1 max: 104.3 cm/sec Ao max P.2 mmHg LV V1 max P.4 mmHg Ao V2 mean: 110.3 cm/sec Ao mean P.5 mmHg Ao V2 VTI: 34.4 cm PA V2 max: 109.9 cm/sec TR max vincent: 346.1 cm/sec TR max P.9 mmHg ECHO/Echo Complete Interpretation Summary Normal LV size. The estimated ejection fraction is 55 %. Mild segmental systolic dysfunction (see wall motion). Moderate concentric left ventricular hypertrophy. Stage 2 diastolic dysfunction. Mild-Moderate (1-2+) eccentric mitral valve insufficiency. Ordering Physician: Myla Lopez Referring Physician: Fara Bernal Performed By: Nan Gurrola RDCS
[2023-04-06] MEDS: Magnesium Sulfate 2 GM in Dextrose 5%-Water (100mL Bag) 100 ML IV (01:11)
[2023-04-06] MEDS: 0.9% Normal Saline (1000mL) 1,000 ML 75 ML IV (01:19)
[2023-04-06 02:58] LABS: Absolute Lymphocyte Count 3.33 X10^3/uL (0.83-4.51); Absolute Neutrophil Count 4.6 X10^3/uL (2.0-7.7); Basophil# 0.07 X10^3/uL; Basophil% 0.8 % (0-1); Eosinophil# 0.38 X10^3/uL; Eosinophils% 4.2 % (0-5); Hematocrit 38.4 % (37-47); Hemoglobin 12.2 g/dL (12.0-15.0); Lymphocyte # 3.33 X10^3/ul (0.83-4.51); Lymphocyte % 36.8 % (19-41); Mean Corp Hgb Conc 31.8 g/dL (32-36); Mean Corpuscular Hgb 26.8 pg (27.0-32.0); Mean Corpuscular Volume 84.4 fL (81-99); Monocyte# 0.61 X10^3/uL; Monocyte% 6.7 % (0-10); NRBC Flagged by Analyzer 0 % (0-5); Neutrophil # 4.64 X10^3/uL (2.7-7.7); Neutrophil % 51.3 % (47-70); Platelet Count 230 K/mm3 (150-450); RBC Distribution Width CV 15.8 % (11.6-14.6); RBC Distribution Width SD 48.6 fl (35.1-43.9); Red Blood Count 4.55 M/mm3 (4.2-5.4); White Blood Count 9.1 K/mm3 (4.4-11.0)
[2023-04-06 03:51] LABS: ALB/GLOB Ratio 0.7 RATIO (0.9-2.4); AST(SGOT) 22 U/L (15-37); Alanine Aminotransfer ALT/SGPT 13 U/L (13-56); Albumin, Serum 2.5 g/dL (3.2-5.0); Alkaline Phosphatase 83 U/L (45-117); Anion Gap 4 (5-15); BUN 19 mg/dL (7-18); BUN/Creat Ratio 24.8 RATIO (10-20); Calcium,Total 8.7 mg/dL (8.5-10.1); Chloride 111 mmol/L (98-107); Cholesterol 152 mg/dL (200); Creatinine, Serum 0.76 mg/dL (0.55-1.02); EST Glomerular Filtration Rate 81 mL/min (>60); Est Glom Filt Rate - Afr Amer 98 mL/min (>60); Estimated Creatinine Clearance 82.52 ml/min; Globulin 3.4 g/dL (2.2-4.2); Glucose 220 mg/dL (74-106); High Density Lipoprotein 43 mg/dL; Potassium 3.8 mmol/L (3.5-5.1); Protein, Total 5.9 g/dL (6.4-8.2); Sodium Level 142 mmol/L (136-145); Triglycerides 83 mg/dL; Very Low Density Lipoprotein 17 mg/dL (5-40)
[2023-04-06 03:58] LABS: Troponin-I HS 2521 pg/mL (3.0-54.0)
[2023-04-06] MEDS: Aspirin E.C. 81 MG Tablet PO (06:13)
[2023-04-06] MEDS: Losartan Potassium 50 MG Tablet PO (06:13)
[2023-04-06] MEDS: Metoprolol(XL)Succ 50 MG Tablet PO (06:14)
[2023-04-06] MEDS: amLODIPine 2.5 MG Tablet PO (06:14)
[2023-04-06] MEDS: hydrALAZINE 20 MG/ML Vial 10 MG IV (06:29)
[2023-04-06 06:33] LABS: Bedside Glucose 160 mg/dL (74-106)
--- NOTE | 2023-04-06 07:20 | CON.PCM.CA_ITS ---
Assessment & Plan Assessment/Plan (1) NSTEMI, initial episode of care: PLAN: She presents with chest discomfort and has a non-ST elevation myocardial infarction. My recommendation is for us to proceed with a left heart catheterization. Risk benefits alternatives have been discussed with her she understands and agrees to proceed. Addendum: She underwent cardiac catheterization which demonstrated patency of the BAUM to the LAD and the saphenous vein graft to the circumflex artery. Right coronary was totally occluded which was known before and there is collateral circulation from left to right. Her ejection fraction is low normal with basal inferior infarct. My suspicion is that her non-ST elevation was likely secondary to demand ischemia from very uncontrolled hypertension. (2) H/O coronary artery bypass surgery: PLAN: She does have a history of coronary bypass surgery as noted above. This will be evaluated again with the cardiac catheterization (3) Essential (primary) hypertension: PLAN: Her blood pressure does not appear to be very well-controlled. I would recommend more aggressive control of the above. (4) Hyperlipidemia: QUALIFIERS: Hyperlipidemia type: mixed hyperlipidemia Qualified Code(s): E78.2 - Mixed hyperlipidemia PLAN: We will continue with aggressive risk factor modification with a goal of LDL of 70 mg percent. HPI Consult Data Date of Consult: 04/06/23 HPI Narrative HPI Narrative: JOSH GRAY, is a 63 F who presents to the emergency room with substernal chest discomfort. She says that she was sitting down watching TV when she started experiencing the above. She has been compliant with her medications as well as her follow-up. She has a history of coronary artery disease status post coronary artery bypass surgery in 2004 she had a BAUM to the LAD and a saphenous vein graft to circumflex artery. The distal right coronary artery was not bypassed. She also has a history of hypertension, hyperlipidemia, non-Hodgkin's lymphoma, and diabetes mellitus. Her last cardiac catheterization in July 2018 demonstrated the circumflex artery being occluded, the right coronary artery was occluded the BAUM graft to the LAD was patent the saphenous vein graft to the circumflex artery was patent and there was collateral flow noted from left to right. Her ejection fraction was noted to be 60% with inferobasilar wall motion abnormalities. In 12/2018 she had an acute ischemic stroke in the left thalamus extending to the left cerebral peduncle. She does have some residual effects from this. She does have MARLEN and does not use her CPAP. Overall pt feel that she is doing okay. She did have some vision changes and is in need of laser surgery on her eye. She is also having issues with her back. She does not have any claudication issues. She does sometimes have edema. She was seen in the emergency room her EKG demonstrated normal sinus rhythm and cardiac enzymes were noted to be abnormal and cardiology was called for further evaluation and management. ON LICENSE OF [facility] Medical History Anemia Arthritis Chronic diastolic (congestive) heart failure CVA (cerebral vascular accident) (12/14/18) Diabetic retinopathy associated with type 2 diabetes mellitus Dysarthria Dyspnea Essential (primary) hypertension History of deep venous thrombosis (DVT) of distal vein of left lower extremity (04/13/13) History of non-Hodgkin's lymphoma (2012) History of non-ST elevation myocardial infarction (NSTEMI) (04/08/13) Hyperlipidemia IBS (irritable bowel syndrome) Incontinent of urine 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) Limb weakness neck/back pain Obesity MARLEN (obstructive sleep apnea) PAF (paroxysmal atrial fibrillation) Polycystic ovaries Shoulder pain Skin lesion of left lower extremity Slurred speech Type 2 diabetes mellitus Home Medications cholecalciferol (vitamin D3) 50 mcg (2,000 unit) capsule 2,000 units PO DAILY vi tamin 05/20/19 [History Last Taken 04/05/23 10:00] albuterol sulfate 90 mcg/actuation aerosol inhaler (Proventil HFA) 2 puff inhalation Q6H PRN Sob &/Or Wheezing 08/14/19 [History Last Taken 04/05/23 10:00] metformin 1,000 mg tablet 1,000 mg PO BID type II diabetes 04/02/20 [History Last Taken 04/05/23 10:00] pen needle, diabetic 31 gauge x 5/16 #1,200 ea 04/02/20 [History Last Taken Unknown] furosemide 40 mg tablet 40 mg PO QAM water pill #90 tabs 05/17/21 [Rx Last Taken 04/05/23 10:00] losartan 50 mg tablet 50 mg PO DAILY bp #90 tabs 07/26/21 [Rx Last Taken 04/05/23 10:00] flash glucose sensor (FreeStyle Moses 14 Day Sensor kit) #1 ea 10/19/21 [History Last Taken Unknown] insulin degludec 100 unit/mL (3 mL) subcutaneous pen (Tresiba FlexTouch U-100 insulin) 50 unit subcut DAILY type II diabetes 10/19/21 [History Last Taken 04/05/23 10:00] atorvastatin 40 mg tablet (Lipitor) 40 mg PO DAILY cholesterol #90 tabs 08/23/22 [Rx Last Taken 04/05/23 10:00] insulin aspart U-100 100 unit/mL (3 mL) subcutaneous pen 30 unit subcut .COMPLEX type II diabetes 08/23/22 [History Last Taken 04/05/23 13:30] insulin aspart U-100 100 unit/mL (3 mL) subcutaneous pen 40 unit subcut BREAKFAST DM II 08/23/22 [History Last Taken 04/05/23 10:00] metoprolol succinate 50 mg tablet,extended release 24 hr 50 mg PO DAILY #90 tabs 08/23/22 [Rx Last Taken Unknown] amlodipine 2.5 mg tablet 2.5 mg PO DAILY bp 04/06/23 [History Last Taken 04/05/23 10:00] apixaban 5 mg tablet (Eliquis) 5 mg PO Q12H heart 04/06/23 [History Last Taken 04/05/23 10:00] Allergy/AdvReac Type Severity Reaction Status Date / Time Penicillins Allergy Severe Rash Verified 04/05/23 20:32 grass pollen Allergy Intermediate Other Verified 04/05/23 20:32 tree and shrub pollen Allergy Intermediate Other Verified 04/05/23 20:32 lisinopril AdvReac Intermediate Other Verified 04/05/23 20:32 hydrocodone bitartrate AdvReac Mild Unknown Verified 04/05/23 20:32 [From Vicodin] losartan AdvReac Heart Burn Verified 04/05/23 20:32 Family History Father , 65 Diabetes Hypertension cabg Mother , Age 65 Hypertension Renal failure Sister Cancer Sister Diabetes Cardiomegaly Surgical History Atherosclerotic heart disease of [place] coronary artery without angina pectoris H/O coronary artery bypass surgery (04/10/13) History of left heart catheterization (07/26/18) Social History Smoking Status: Never smoker alcohol intake: never substance use type: does not use caffeine: Yes Type: coffee Number of servings: 2 ROS Constitutional Constitutional: Denies fever(s) or weight loss Eyes Eyes: Reports systems reviewed and no addt'l complaints, except as documented ENT HEENT: Reports systems reviewed and no addt'l complaints, except as documented Cardiovascular Cardiovascular: Denies chest pain at rest, chest pain with activity, dyspnea at rest, dyspnea on exertion, edema, palpitations or paroxysmal nocturnal dyspnea Respiratory/Chest Respiratory/Chest: Denies dyspnea on exertion, productive cough, shortness of breath at rest or shortness of breath with exertion Gastrointestinal Gastrointestinal: Denies change in bowel habits, nausea, vomiting or weight changes Genitourinary Genitourinary: Denies difficulty urinating Musculoskeletal Musculoskeletal: Denies joint stiffness or muscle weakness Integumentary Integumentary: Denies lesions Neurologic Neurologic: Denies dizziness or syncope Psychiatric Psychiatric: Denies anxiety Endocrine Endocrinology: Denies excessive sweating or fatigue Hematologic/Lymphatic Hematologic/Lymphatic: Denies anemia Allergic/Immunologic Allergic/Immunologic: Denies seasonal rhinorrhea Physical Exam Const alert, oriented x3 and no apparent distress General Appearance: cooperative HEENT hearing grossly normal bilaterally Head and Scalp: atraumatic Eyes EOMs intact bilaterally Neck General: normal visual inspection Chest inspection of chest normal and palpation of chest normal Resp normal respiratory effort Auscultation: clear to auscultation bilaterally Cardio regular rate, regular rhythm, S1 normal heart sound and S2 normal heart sound Jugular Venous Distention: JVD GI normal to inspection, nondistended, normoactive bowel sounds Extremity normal capillary refill and no pedal edema Peripheral Pulses: Yes pulses 2+ throughout and femoral pulses present Skin no rashes or lesions noted Neuro oriented x3 and CN's II-XII intact bilaterally Psych Appearance: grossly normal and appropriate Risk Stratification Risk Stratification Applicable: Yes Age >/= 65: No >/= 3 CAD Risk Factors (HTN, HLD, DM, family hx of CAD, or current smoker): Yes Aspirin Use in the Past 7 Days: Yes Severe Angina (>/= episodes in 24 hours): No EKG ST Changes >/= 0.5mm: No Positive Cardiac Marker: Yes CORNELIUS Risk Stratification Score: 3 CORNELIUS % Risk: 13% Risk Objective Data Vital Signs: Vital Signs Temp Pulse Resp BP Pulse Ox O2 Del Method 97.0 F L 77 18 175/114 H 99 Room Air 04/06/23 06:00 04/06/23 06:29 04/06/23 06:00 04/06/23 06:29 04/06/23 06:00 04/06/23 06:00 Oxygen Delivery Method Room Air Weight: 204 lb 9.423 oz Body Mass Index (BMI) 35.1 Intake & Output: Intake and Output for Last 24 Hours 04/04/23 04/05/23 04/06/23 23:59 23:59 23:59 Intake Total 104 / 104 Balance 104 / 104 Lab / Micro Data 04/06/23 02:46 04/06/23 02:46 Labs: Laboratory Results - last 24 hr 04/05/23 21:03: WBC 8.9, RBC 4.64, Hgb 12.4, Hct 39.2, MCV 84.5, MCH 26.7 L, MCHC 31.6 L, RDW Std Deviation 48.5 H, RDW Coeff of Dutch 15.9 H, Plt Count 226, MPV 11.8, Immature Gran % (Auto) 0.200, Neut % (Auto) 62.9, Lymph % (Auto) 26.0, [place] % (Auto) 6.3, Eos % (Auto) 3.6, Baso % (Auto) 1.0, Absolute Neuts (auto) 5.6, Absolute Lymphs (auto) 2.32, Nucleated RBC % 0, Sodium 140, Potassium 3.6, Chloride 109 H, Carbon Dioxide 26.0, Anion Gap 5, BUN 20 H, Creatinine 0.87, Estim Creat Clear Calc 73.41, Est GFR (MDRD) Af Amer 85, Est GFR (MDRD) Non-Af 70, BUN/Creatinine Ratio 23.1 H, Glucose 273 H, Calcium 8.8, Troponin I High Sens 152 H* 04/05/23 23:45: Magnesium 1.4 L, Troponin I High Sens 1492 H* 04/06/23 02:46: WBC 9.1, RBC 4.55, Hgb 12.2, Hct 38.4, MCV 84.4, MCH 26.8 L, MCHC 31.8 L, RDW Std Deviation 48.6 H, RDW Coeff of Dutch 15.8 H, Plt Count 230, MPV 11.0, Immature Gran % (Auto) 0.200, Neut % (Auto) 51.3, Lymph % (Auto) 36.8, [place] % (Auto) 6.7, Eos % (Auto) 4.2, Baso % (Auto) 0.8, Absolute Neuts (auto) 4.6, Absolute Lymphs (auto) 3.33, Nucleated RBC % 0, Sodium 142, Potassium 3.8, Chloride 111 H, Carbon Dioxide 27.0, Anion Gap 4 L, BUN 19 H, Creatinine 0.76, Estim Creat Clear Calc 82.52, Est GFR (MDRD) Af Amer 98, Est GFR (MDRD) Non-Af 81, BUN/Creatinine Ratio 24.8 H, Glucose 220 H, Calcium 8.7, Magnesium 2.0, Total Bilirubin 0.50, AST 22, ALT 13, Alkaline Phosphatase 83, Troponin I High Sens 2521 H*, Total Protein 5.9 L, Albumin 2.5 L, Globulin 3.4, Albumin/Globulin Ratio 0.7 L, Triglycerides 83, Cholesterol 152, LDL Cholesterol 92, VLDL Cholesterol 17, HDL Cholesterol 43 04/06/23 06:14: POC Glucose 160 H Cardiology Labs/Tests 04/05/23 21:03: WBC 8.9, RBC 4.64, Hgb 12.4, Hct 39.2, MCV 84.5, MCH 26.7 L, MCHC 31.6 L, Plt Count 226, MPV 11.8, Immature Gran % (Auto) 0.200, Neut % (Auto) 62.9, Lymph % (Auto) 26.0, [place] % (Auto) 6.3, Eos % (Auto) 3.6, Baso % (Auto) 1.0, Absolute Neuts (auto) 5.6, Nucleated RBC % 0, Sodium 140, Potassium 3.6, Chloride 109 H, Carbon Dioxide 26.0, Anion Gap 5, BUN 20 H, Creatinine 0.87, Est GFR (MDRD) Af Amer 85, Est GFR (MDRD) Non-Af 70, BUN/Creatinine Ratio 23.1 H, Glucose 273 H, Calcium 8.8 04/05/23 23:45: Magnesium 1.4 L 04/06/23 02:46: WBC 9.1, RBC 4.55, Hgb 12.2, Hct 38.4, MCV 84.4, MCH 26.8 L, MCHC 31.8 L, Plt Count 230, MPV 11.0, Immature Gran % (Auto) 0.200, Neut % (Auto) 51.3, Lymph % (Auto) 36.8, [place] % (Auto) 6.7, Eos % (Auto) 4.2, Baso % (Auto) 0.8, Absolute Neuts (auto) 4.6, Nucleated RBC % 0, Sodium 142, Potassium 3.8, Chloride 111 H, Carbon Dioxide 27.0, Anion Gap 4 L, BUN 19 H, Creatinine 0.76, Est GFR (MDRD) Af Amer 98, Est GFR (MDRD) Non-Af 81, BUN/Creatinine Ratio 24.8 H, Glucose 220 H, Calcium 8.7, Magnesium 2.0, Total Bilirubin 0.50, Triglycerides 83, Cholesterol 152, LDL Cholesterol 92, VLDL Cholesterol 17, HDL Cholesterol 43 Rhythm: EKG: ECHO: Stress Test: Cardiac Cath: PCI: CT Surgery: Holter monitor: EPS: PPM: CXR: Chest CT Scan: Radiography Diagnostic Testing: Radiology Impression Chest X-Ray 04/05/23 21:16 IMPRESSION: Decreased inspiration with vascular crowding and mild bilateral mid lower lung atelectasis. Otherwise no acute cardiac pulmonary disease. Electronically Signed: Kandace Perez MD at 21:34 EST ,
[2023-04-06] MEDS: amLODIPine 5 MG Tablet PO (08:15)
--- NOTE | 2023-04-06 08:51 | CASEMGMT ---
Insurance review for hospitals In-network with [facility] Dual insurance if transfer is recommended is as follows:?[facility], [place], [facility], [facility], [facility], [facility], [facility]), [place], [place], [facility], and . Gail Monae, Discharge Planning Asst.
[2023-04-06] MEDS: 0.9% Normal Saline (1000mL) 1,000 ML 15 ML IV (10:19)
[2023-04-06] MEDS: Acetaminophen 325 MG Tablet 650 MG PO (10:21)
--- NOTE | 2023-04-06 10:48 | CASEMGMT ---
JONH SAMS Assessment Face to Face with patient for initial transition planning/care coordination assessment. JONH SAMS introduced self and role at [facility], pt voices understanding. Pt is A&Ox4 and is resting comfortably in bed and is calm. Care providers, pharmacy, and demographics verified. Admitting dx: CP, NSTEMI LACE Strata: 3 PCP: Fara Bernal Specialists: Francheska Preferred Pharmacy: [facility] Insurance: [facility] [employer] Prescription Benefit: Yes LNOK: Kwabena Sawyer (H), Magalie Golden (RADHA) Living Arrangements: Pt lives with her , daughter (19), and son (25) in a bi-level home with a flat entrance. Pt states there are around 7 steps to get to the top floor with HR and about 4-5 steps to get to the bottom level with a HR. Denies issues. ADLs/IADLs: Ind Transportation: Pt drives. Pt states her daughter will drive her home from the hospital DME: Pt states that she has a continuous BGM and has enough supplies at home for this. Shower is equipped with a GB. Denies all other DME uses or needs. HHC/SNF: Pt states that she had cardiac surgery x 10 years ago and went to a NH in [place] afterwards for about one week. Pt denies history oh HHC. Pt?s goal: Home no needs. Plan: Pt 6 click score is 18. There is no therapy ordered. Pt denies the need of HHC or OP therapy at this time. Pt states that her and kids can help her at home and that she wants to DC home with no additional needs at this time. Bret Sawyer RN, CM
--- NOTE | 2023-04-06 11:01 | PN_ITS ---
Subjective Subjective Patient seen and examined. She was admitted with a complaint of chest pain. She is being managed for Nonstemi. She had no complaints this morning and had an uneventful night. Review of systems is otherwise negative. Objective Data Objective Data Vital Signs: Vital Signs Temp Pulse Resp BP Pulse Ox O2 Del Method 97.8 F 83 16 167/88 H 98 Room Air 04/06/23 08:13 04/06/23 08:13 04/06/23 08:13 04/06/23 08:13 04/06/23 08:13 04/06/23 08:17 Oxygen Delivery Method Room Air Weight: 204 lb 9.423 oz Body Mass Index (BMI) 35.1 Intake & Output: Intake and Output for Last 24 Hours 04/04/23 04/05/23 04/06/23 23:59 23:59 23:59 Intake Total 104 / 104 Balance 104 / 104 Lab / Micro Data 04/06/23 02:46 04/06/23 02:46 Labs: Laboratory Results - last 24 hr 04/05/23 21:03: WBC 8.9, RBC 4.64, Hgb 12.4, Hct 39.2, MCV 84.5, MCH 26.7 L, MCHC 31.6 L, RDW Std Deviation 48.5 H, RDW Coeff of Dutch 15.9 H, Plt Count 226, MPV 11.8, Immature Gran % (Auto) 0.200, Neut % (Auto) 62.9, Lymph % (Auto) 26.0, [place] % (Auto) 6.3, Eos % (Auto) 3.6, Baso % (Auto) 1.0, Absolute Neuts (auto) 5.6, Absolute Lymphs (auto) 2.32, Nucleated RBC % 0, Sodium 140, Potassium 3.6, Chloride 109 H, Carbon Dioxide 26.0, Anion Gap 5, BUN 20 H, Creatinine 0.87, Estim Creat Clear Calc 73.41, Est GFR (MDRD) Af Amer 85, Est GFR (MDRD) Non-Af 70, BUN/Creatinine Ratio 23.1 H, Glucose 273 H, Calcium 8.8, Troponin I High Sens 152 H* 04/05/23 23:45: Magnesium 1.4 L, Troponin I High Sens 1492 H* 04/06/23 02:46: WBC 9.1, RBC 4.55, Hgb 12.2, Hct 38.4, MCV 84.4, MCH 26.8 L, MCHC 31.8 L, RDW Std Deviation 48.6 H, RDW Coeff of Dutch 15.8 H, Plt Count 230, MPV 11.0, Immature Gran % (Auto) 0.200, Neut % (Auto) 51.3, Lymph % (Auto) 36.8, [place] % (Auto) 6.7, Eos % (Auto) 4.2, Baso % (Auto) 0.8, Absolute Neuts (auto) 4.6, Absolute Lymphs (auto) 3.33, Nucleated RBC % 0, Sodium 142, Potassium 3.8, Chloride 111 H, Carbon Dioxide 27.0, Anion Gap 4 L, BUN 19 H, Creatinine 0.76, Estim Creat Clear Calc 82.52, Est GFR (MDRD) Af Amer 98, Est GFR (MDRD) Non-Af 81, BUN/Creatinine Ratio 24.8 H, Glucose 220 H, Calcium 8.7, Magnesium 2.0, Total Bilirubin 0.50, AST 22, ALT 13, Alkaline Phosphatase 83, Troponin I High Sens 2521 H*, Total Protein 5.9 L, Albumin 2.5 L, Globulin 3.4, Albumin/Globulin Ratio 0.7 L, Triglycerides 83, Cholesterol 152, LDL Cholesterol 92, VLDL Cholesterol 17, HDL Cholesterol 43 04/06/23 06:14: POC Glucose 160 H Radiography Diagnostic Testing: Radiology Impression Chest X-Ray 04/05/23 21:16 IMPRESSION: Decreased inspiration with vascular crowding and mild bilateral mid lower lung atelectasis. Otherwise no acute cardiac pulmonary disease. Electronically Signed: Kandace Perez MD at 21:34 EST , Echocardiogram 04/06/23 00:50 Interpretation Summary Normal LV size. The estimated ejection fraction is 55 %. Mild segmental systolic dysfunction (see wall motion). Moderate concentric left ventricular hypertrophy. Stage 2 diastolic dysfunction. Mild-Moderate (1-2+) eccentric mitral valve insufficiency. Ordering Physician: Myla Lopez Referring Physician: Fara Bernal Performed By: Nan Gurrola RDCS Physical Exam Const alert, oriented x3, no apparent distress and well nourished General Appearance: cooperative HEENT normocephalic, head/scalp atraumatic, moist oral mucous membranes and oropharynx normal Eyes PERRL and EOMs intact bilaterally Neck no lymphadenopathy, supple and no JVD Lymph Lymphatic: no lymphadenopathy noted and no lymphedema noted Resp normal respiratory effort, normal air movement and clear to auscultation bilaterally Cardio regular rate, regular rhythm, S1 normal heart sound, S2 normal heart sound and no murmurs GI normal to inspection, nondistended, normoactive bowel sounds, soft to palpation, non-tender and non-distended Extremity normal capillary refill, no clubbing, cyanosis or edema and no calf tenderness General Extremity: no tenderness to palpation of joints or extremities Skin General Skin Exam: no breakdown Neuro CN's II-XII intact bilaterally, no focal motor deficits, no sensory deficits noted and deep tendon reflexes 2+ bilaterally Motor Exam: strength 5/5 throughout and general weakness Psych thought process normal, cooperative and affect normal Appearance: appropriate Assessment & Plan Assessment/Plan (1) NSTEMI, initial episode of care: PLAN: Plan #Nonstemi * Troponins were elevated * EKG showed no acute ST changes * 2D echo showed moderate concentric LVH and EF of 55%, with stage 2 diastolic dysfunction with mid inferior akinetic bertrand, with the rest of the wall segments normal and stage 2 diastolic dysfunction. * on heparin drip, and eliquis held whilst she is in the hospital. * cardiology consulted; for cardiac cath today * #Peripheral artery disease * follows with vascular surgery * on aspirin, metoprolol, statin and losartan. * #CAD s/p CABG * had CABG in 2003. * on aspirin, statin and metoprolol as well as losartan. * #History of CVA * on aspirin, statin. also on eliquis for afib; this was held on admission and patient placed on heparin drip * #paroxysmal afib * eliquis held on admission. On metoprolol * #Type 2 diabetes mellitus: home meds on hold. ISS. Accuchecks ACHS. #Hyperlipidemia: on statin #History of DVT; eliquis on hold. #History of non Hodgkin's lymphoma * s/p treatment in 2013. To follow up with oncology on outpatient basis as scheduled. * #Code status: full code. Charges/Coding Visit Charges Inpatient E&M: 26132 Subs Hosp L2
[2023-04-06] MEDS: Furosemide 40 MG Tablet PO (13:16)
--- NOTE | 2023-04-06 13:41 | CL.D_ITS ---
Patient Name: JOSH GRAY Study Date: 04/06/2023 Performing: Sheng Pritchard MD Ht: 64 inches 162.56 cm : 1960 Wt: 204.9 lbs 92.8 kg Age: 63 Gender: female BSA: 1.97 PROCEDURE(S) PERFORMED DC04-([id number])LHC/COR/CABG DC11-([id number])AO ROOT ANGIO WITH HEART CATH CLINICAL PROFILE AND INDICATIONS Indications: Worsening Angina Heart Failure: None Stress/Imaging Stress/Image Study Performed: No CAD Presentations: Unstable angina. CONCLUSIONS Severe coronary disease status post bypass surgery with a BAUM to the LAD with distal LAD disease which is mild, saphenous vein graft to circumflex artery which is patent. Left to right collaterals and preserved ejection fraction with segmental wall motion abnormalities. RECOMMENDATIONS Medical therapy DESCRIPTION OF PROCEDURE The patient arrived to the procedure lab. The risks and benefits of the procedure as well as a full description of our services here and current unavailability of surgical backup were fully explained to the patient and/or their significant other prior to the catheterization. The Timeout was completed, verifying the correct patient and procedure. The patient's procedural site was prepped and draped in the usual fashion. Local anesthetic was given subcutaneously to left radial region with Lidocaine 2%. Using a modified Seldinger technique, arterial access was obtained via the left radial artery, a 6Fr sheath was inserted. Left internal mammary artery graft to the LAD selective angiography was performed in multiple views using a 5 Fr. IM catheter. Left Coronary Artery selective angiography was performed in multiple views using a 5 Fr. JL4 catheter. Ascending (root) aorta selective angiography was then performed in single view. Ascending (root) aorta selective angiography was then performed in single view. Saphenous Vein graft to the Circumflex selective angiography was performed in multiple views using a 5 Fr. AR MOD catheter.The arterial sheath was pulled and a TR Band was applied for hemostasis w/ 10ml air CORONARY ANGIOGRAPHY DOMINANCE: Right Dominant LEFT HEART ASSESSMENT Left Ventricular Ejection Fraction: by Echo 50 % Inferior Basal Akinesis Normal Left Ventricular systolic function LEFT MAIN: Severely diseased vessel with moderate stenosis LEFT ANTERIOR DESCENDING ARTERY: OSTIAL LAD: is occluded CIRCUMFLEX ARTERY: is occluded RIGHT CORONARY ARTERY: is occluded GRAFTS: BAUM graft to the Mid LAD is patent Saphenous Vein graft to the 1st OM is patent Saphenous Vein graft to the Mid CIRC The graft to the circumflex artery fills the first and second obtuse marginal vessels. BAUM graft to the Mid LAD The BAUM graft to the LAD retrogradely fills the septal perforators and then anastomosis to the circumflex artery and the distal right coronary artery COLLATERAL FLOW: Collateral flow from Left to Left Collateral flow from Left to Right COMPLICATIONS No Complications PROCEDURE MEDICATIONS Versed 1 mg IV Fentanyl 50 mcg IV Versed 1 mg IV Fentanyl 50 mcg IV Versed 1 mg IV Oxygen: 2 L/min via nasal cannula Heparin given IA 04/06/2023 12:04:43 Verapamil 2.5mg, Ntg 100mcgs, 3000 units of Heparin given IA 04/06/2023 12:04:43 SUMMARY OF HEMODYNAMIC DATA Time AIR REST ECG 11:37:45 Art 140/63 (92) 12:04:09 AO 129/73 (98) SA 12:13:56 Signed By Sheng Pritchard MD On 04/06/2023 13:40:46 Sheng Pritchard MD
--- NOTE | 2023-04-06 15:19 | CHAPLAIN ---
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 ___ Other (describe below) Sacrament/Intervention _x__ Active listening ___ Anointing ___ Orthodox ___ Bereavement ___ Communion ___ Negin exploration ___ _x__ Life review ___ Prayer ___ Reconciliation ___ Sacrament of Sick _x__ Supportive presence ___ Wedding ___ Other (describe below) Pastoral Comments patient is talkative and gives some life review and health review; pt's daughter is in room and then is joined by son in room as well; pt wants to go home as her mention of what she needs; pt does not identify any particular concerns when asked but focuses more on her past health, her current living situation, and her family;
[2023-04-06] MEDS: Insulin Lispro 100 UNIT/ML INSULN.PEN SC ×2 (15:30→20:44)
[2023-04-06] MEDS: Insulin Lispro 100 UNIT/ML INSULN.PEN 30 UNIT SC (17:12)
[2023-04-06] MEDS: Atorvastatin Calcium 40 MG Tablet PO (20:44)
[2023-04-06] MEDS: Nystatin Powder 15gm Bottle 1 APPLIC TOPICAL (20:44)
[2023-04-06 21:24] LABS: Bedside Glucose 247 mg/dL (74-106)
[2023-04-07 03:00] VITALS: BP 149/72; PULSE 74; RESP 16; TEMP 35.9; O2SAT 98
[2023-04-07 03:21] VITALS: BMI 35.3
[2023-04-07 05:50] LABS: Absolute Lymphocyte Count 2.48 X10^3/uL (0.83-4.51); Absolute Neutrophil Count 4.6 X10^3/uL (2.0-7.7); Basophil# 0.06 X10^3/uL; Basophil% 0.7 % (0-1); Eosinophil# 0.42 X10^3/uL; Eosinophils% 5.1 % (0-5); Hematocrit 39.6 % (37-47); Hemoglobin 12.6 g/dL (12.0-15.0); Lymphocyte # 2.48 X10^3/ul (0.83-4.51); Lymphocyte % 30.2 % (19-41); Mean Corp Hgb Conc 31.8 g/dL (32-36); Mean Corpuscular Hgb 26.9 pg (27.0-32.0); Mean Corpuscular Volume 84.4 fL (81-99); Mean Platelet Vol. 10.9 fl (6.2-12.0); Monocyte# 0.61 X10^3/uL; Monocyte% 7.4 % (0-10); NRBC Flagged by Analyzer 0 % (0-5); Neutrophil # 4.64 X10^3/uL (2.7-7.7); Neutrophil % 56.5 % (47-70); Platelet Count 205 K/mm3 (150-450); RBC Distribution Width CV 16.2 % (11.6-14.6); RBC Distribution Width SD 50.3 fl (35.1-43.9); Red Blood Count 4.69 M/mm3 (4.2-5.4); White Blood Count 8.2 K/mm3 (4.4-11.0)
[2023-04-07 06:21] LABS: Anion Gap 5 (5-15); BUN 19 mg/dL (7-18); BUN/Creat Ratio 21.6 RATIO (10-20); Calcium,Total 8.6 mg/dL (8.5-10.1); Chloride 110 mmol/L (98-107); Creatinine, Serum 0.88 mg/dL (0.55-1.02); EST Glomerular Filtration Rate 69 mL/min (>60); Est Glom Filt Rate - Afr Amer 83 mL/min (>60); Estimated Creatinine Clearance 71.55 ml/min; Glucose 246 mg/dL (74-106); Potassium 3.7 mmol/L (3.5-5.1); Sodium Level 141 mmol/L (136-145)
[2023-04-07] MEDS: Insulin Lispro 100 UNIT/ML INSULN.PEN SC (06:30)
[2023-04-07 07:12] LABS: Bedside Glucose 220 mg/dL (74-106)
--- NOTE | 2023-04-07 07:43 | PN.CARD_ITS ---
Subjective Subjective Patient seen and evaluated. Did well overnight. Objective Data Vital Signs: Vital Signs Temp Pulse Resp BP Pulse Ox O2 Del Method 96.6 F L 74 16 149/72 H 98 Room Air 04/07/23 03:00 04/07/23 03:00 04/07/23 03:00 04/07/23 03:00 04/07/23 03:00 04/07/23 03:29 Oxygen Delivery Method Room Air Weight: 205 lb 14.588 oz Body Mass Index (BMI) 35.3 Intake & Output: Intake and Output for Last 24 Hours 04/05/23 04/06/23 04/07/23 23:59 23:59 23:59 Intake Total 1878 / 1878 150 / 150 Balance 1878 / 1878 150 / 150 Lab / Micro Data 04/07/23 05:20 04/07/23 05:20 Labs: Laboratory Results - last 24 hr 04/06/23 20:42: POC Glucose 247 H 04/07/23 05:20: WBC 8.2, RBC 4.69, Hgb 12.6, Hct 39.6, MCV 84.4, MCH 26.9 L, MCHC 31.8 L, RDW Std Deviation 50.3 H, RDW Coeff of Dutch 16.2 H, Plt Count 205, MPV 10.9, Immature Gran % (Auto) 0.100, Neut % (Auto) 56.5, Lymph % (Auto) 30.2, [place] % (Auto) 7.4, Eos % (Auto) 5.1 H, Baso % (Auto) 0.7, Absolute Neuts (auto) 4.6, Absolute Lymphs (auto) 2.48, Nucleated RBC % 0, Sodium 141, Potassium 3.7, Chloride 110 H, Carbon Dioxide 26.0, Anion Gap 5, BUN 19 H, Creatinine 0.88, Estim Creat Clear Calc 71.55, Est GFR (MDRD) Af Amer 83, Est GFR (MDRD) Non-Af 69, BUN/Creatinine Ratio 21.6 H, Glucose 246 H, Calcium 8.6 04/07/23 06:29: POC Glucose 220 H Cardiology Labs/Tests 04/07/23 05:20: WBC 8.2, RBC 4.69, Hgb 12.6, Hct 39.6, MCV 84.4, MCH 26.9 L, MCHC 31.8 L, Plt Count 205, MPV 10.9, Immature Gran % (Auto) 0.100, Neut % (Auto ) 56.5, Lymph % (Auto) 30.2, [place] % (Auto) 7.4, Eos % (Auto) 5.1 H, Baso % (A uto) 0.7, Absolute Neuts (auto) 4.6, Nucleated RBC % 0, Sodium 141, Potassium 3.7, Chloride 110 H, Carbon Dioxide 26.0, Anion Gap 5, BUN 19 H, Creatinine 0.88, Est GFR (MDRD) Af Amer 83, Est GFR (MDRD) Non-Af 69, BUN/Creatinine Ratio 21.6 H, Glucose 246 H, Calcium 8.6 Rhythm: EKG: ECHO: Stress Test: Cardiac Cath: PCI: CT Surgery: Holter monitor: EPS: PPM: CXR: Chest CT Scan: Radiography Diagnostic Testing: Radiology Impression Echocardiogram 04/06/23 00:50 Interpretation Summary Normal LV size. The estimated ejection fraction is 55 %. Mild segmental systolic dysfunction (see wall motion). Moderate concentric left ventricular hypertrophy. Stage 2 diastolic dysfunction. Mild-Moderate (1-2+) eccentric mitral valve insufficiency. Ordering Physician: Myla Lopez Referring Physician: Fara Bernal Performed By: Nan Gurrola RDCS Physical Exam Const alert, oriented x3 and no apparent distress General Appearance: cooperative HEENT hearing grossly normal bilaterally Head and Scalp: atraumatic Eyes EOMs intact bilaterally Neck General: normal visual inspection Chest inspection of chest normal and palpation of chest normal Resp normal respiratory effort Auscultation: clear to auscultation bilaterally Cardio regular rate, regular rhythm, S1 normal heart sound and S2 normal heart sound Jugular Venous Distention: JVD GI normal to inspection, nondistended, normoactive bowel sounds Extremity normal capillary refill and no pedal edema Peripheral Pulses: Yes pulses 2+ throughout and femoral pulses present Skin no rashes or lesions noted Neuro oriented x3 and CN's II-XII intact bilaterally Psych Appearance: grossly normal and appropriate Assessment & Plan Assessment/Plan (1) NSTEMI, initial episode of care: PLAN: She presents with chest discomfort and has a non-ST elevation myocardial infarction. She underwent cardiac catheterization which demonstrated patency of the BAUM to the LAD and the saphenous vein graft to the circumflex artery. R ight coronary was totally occluded which was known before and there is collateral circulation from left to right. Her ejection fraction is low normal with basal inferior infarct. My suspicion is that her non-ST elevation was likely secondary to demand ischemia from very uncontrolled hypertension. Can be discharged on optimal medical therapy for outpatient follow-up. (2) H/O coronary artery bypass surgery: PLAN: She does have a history of coronary bypass surgery as noted above. (3) Essential (primary) hypertension: PLAN: Her blood pressure does not appear to be very well-controlled. I would recommend more aggressive control of the above. Her blood pressure appears to be better controlled this morning. (4) Hyperlipidemia: QUALIFIERS: Hyperlipidemia type: mixed hyperlipidemia Qualified Code(s): E78.2 - Mixed hyperlipidemia PLAN: We will continue with aggressive risk factor modification with a goal of LDL of 70 mg percent.
[2023-04-07 08:19] VITALS: O2SAT 96
[2023-04-07] MEDS: Losartan Potassium 50 MG Tablet 100 MG PO (08:45)
[2023-04-07] MEDS: Aspirin E.C. 81 MG Tablet PO (08:45)
[2023-04-07] MEDS: Insulin Glargine-YFGN 100 UNIT/ML Pen 50 UNIT SC (08:45)
[2023-04-07 08:46] VITALS: BP 172/98; PULSE 97
[2023-04-07] MEDS: Nystatin Powder 15gm Bottle 1 APPLIC TOPICAL (08:46)
[2023-04-07] MEDS: Furosemide 40 MG Tablet PO (08:46)
[2023-04-07] MEDS: Metoprolol(XL)Succ 50 MG Tablet PO (08:46)
[2023-04-07] MEDS: amLODIPine 10 MG Tablet PO (08:47)
[2023-04-07 08:51] VITALS: BP 172/98; PULSE 82; RESP 16; TEMP 36.5; O2SAT 97
[2023-04-07 09:12] LABS: Bedside Glucose 167 mg/dL (74-106)
[2023-04-07 11:07] VITALS: BP 154/78; PULSE 80; RESP 16; TEMP 36.4; O2SAT 98
--- NOTE | 2023-04-07 11:11 | DS.PCM_ITS ---
Providers Date of Admission: 04/05/23 Date of Discharge: 04/07/23 Primary Care Physician: Dr. Fara Bernal, Consultations 04/06/23 00:50 Consult: Cardiology Routine Consulting Provider: Sheng Pritchard Reason for Consult: Chest Pain, NSTEMI EMERGENT Consult: No MD Notified: Yes Date Notified: 04/05/23 Time Notified: 23:32 Method of Notification: ED Physician Initiated Reason For Visit: CHEST PAIN, NSTEMI Diagnosis Discharge Diagnosis (1) NSTEMI, initial episode of care: Status: Acute Code(s): I21.4 - Non-ST elevation (NSTEMI) myocardial infarction (2) H/O coronary artery bypass surgery: Status: Resolved Code(s): Z95.1 - Presence of aortocoronary bypass graft (3) Essential (primary) hypertension: Status: Chronic Code(s): I10 - Essential (primary) hypertension (4) Hyperlipidemia: Status: Chronic Code(s): E78.5 - Hyperlipidemia, unspecified Qualifiers: Hyperlipidemia type: mixed hyperlipidemia Qualified Code(s): E78.2 - Mixed hyperlipidemia Plan #Nonstemi * Troponins were elevated * EKG showed no acute ST changes * 2D echo showed moderate concentric LVH and EF of 55%, with stage 2 diastolic dysfunction with mid inferior akinetic bertrand, with the rest of the wall segments normal and stage 2 diastolic dysfunction. * on heparin drip, and eliquis held whilst she is in the hospital. * cardiology consulted; for cardiac cath today * #Peripheral artery disease * follows with vascular surgery * on aspirin, metoprolol, statin and losartan. * #CAD s/p CABG * had CABG in 2003. * on aspirin, statin and metoprolol as well as losartan. * #History of CVA * on aspirin, statin. also on eliquis for afib; this was held on admission and patient placed on heparin drip * #paroxysmal afib * eliquis held on admission. On metoprolol * #Type 2 diabetes mellitus: home meds on hold. ISS. Accuchecks ACHS. #Hyperlipidemia: on statin #History of DVT; eliquis on hold. #History of non Hodgkin's lymphoma * s/p treatment in 2012. To follow up with oncology on outpatient basis as scheduled. * #Code status: full code. Medications at Discharge Home Medications cholecalciferol (vitamin D3) 50 mcg (2,000 unit) capsule 2,000 units PO DAILY vitamin 05/20/19 albuterol sulfate 90 mcg/actuation aerosol inhaler (Proventil HFA) 2 puff inh alation Q6H PRN Sob &/Or Wheezing 08/14/19 metformin 1,000 mg tablet 1,000 mg PO BID type II diabetes 04/02/20 pen needle, diabetic 31 gauge x 5/16 #1,200 ea 04/02/20 furosemide 40 mg tablet 40 mg PO QAM water pill #90 tabs 05/17/21 losartan 50 mg tablet 50 mg PO DAILY bp #90 tabs 07/26/21 flash glucose sensor (FreeStyle Moses 14 Day Sensor kit) #1 ea 10/19/21 insulin degludec 100 unit/mL (3 mL) subcutaneous pen (Tresiba FlexTouch U-100 insulin) 50 unit subcut DAILY type II diabetes 10/19/21 atorvastatin 40 mg tablet (Lipitor) 40 mg PO DAILY cholesterol #90 tabs 08/23/22 insulin aspart U-100 100 unit/mL (3 mL) subcutaneous pen 30 unit subcut .COMPLEX type II diabetes 08/23/22 insulin aspart U-100 100 unit/mL (3 mL) subcutaneous pen 40 unit subcut BREAKFAST DM II 08/23/22 metoprolol succinate 50 mg tablet,extended release 24 hr 50 mg PO DAILY #90 tabs 08/23/22 apixaban 5 mg tablet (Eliquis) 5 mg PO Q12H heart 04/06/23 amlodipine 10 mg tablet 10 mg PO DAILY #30 tabs 04/07/23 Hospital Course Operations None Procedures 2-D Echocardiogram and Cardiac catheterization Summary of Care Provided Minutes Spent on Discharge: 52 Hospital Course: Patient is a 63-year-old female with extensive past medical history as outlined which includes CAD s/p CABG who was admitted via the ED on 04/05/2023 with a complaint of chest pain and discomfort which involved the left upper extremity. She had no persistent nausea or vomiting or shortness of breath. The symptoms were persistent so she came into the ED. Initial troponin in the ED was 152. Chest x-ray showed decreased infiltration with vascular crowding and mild bi lateral mid to lower lung atelectasis. EKG showed sinus tachycardia but no acute ST changes. She was admitted and managed for non-STEMI as her troponins trended upwards. She had 2D echo which showed moderate concentric LVH and EF of 55%, with stage 2 diastolic dysfunction with mid inferior akinetic bertrand, with the rest of the wall segments normal and stage 2 diastolic dysfunction. She had cardiac cath which showed patency of the BAUM to the LAD and a saphenous vein graft to the circumflex artery. Right coronary artery was totally occluded which was known before and there was collateral circulation from left to right. Per cardiology, had non-STEMI was likely due to demand ischemia from uncontrolled hypertension. Amlodipine dose was increased from 2.5 mg daily to 10 mg daily and her other blood pressure medications were continued. She remained stable and was discharged home on 04/07/2023. She is to follow-up with her primary care doctor and with cardiology within 1 to 2 weeks. Patient seen and examined prior to discharge. She had no active complaints and had an uneventful night. Review of systems otherwise negative. Labs and vitals reviewed. Home medication reviewed and reconciled. Physical Exam Const alert, oriented x3, no apparent distress and well nourished General Appearance: cooperative, comfortable and well kempt HEENT normocephalic, head/scalp atraumatic, hearing grossly normal bilaterally, moist oral mucous membranes and oropharynx normal Mouth: oral and palatal mucosa normal Eyes PERRL, EOMs intact bilaterally and conjunctivae normal Neck no lymphadenopathy, supple and no JVD Lymph Lymphatic: no lymphadenopathy noted and no lymphedema noted Resp normal respiratory effort, normal air movement, no retractions, no use of accessory muscles and clear to auscultation bilaterally Cardio regular rate, regular rhythm, S1 normal heart sound, S2 normal heart sound and no murmurs GI normal to inspection, nondistended, normoactive bowel sounds, soft to palpation, non-tender and non-distended Extremity normal to inspection, full ROM, normal capillary refill, no clubbing, cyanosis or edema and no calf tenderness General Extremity: no tenderness to palpation of joints or extremities Skin no rashes or lesions noted and no wounds General Skin Exam: no breakdown Neuro oriented x3, CN's II-XII intact bilaterally, moves all extremities, no focal motor deficits, no sensory deficits noted and deep tendon reflexes 2+ bilaterall y Sensorium / Orientation: awake and alert Motor Exam: strength 5/5 throughout and general weakness Psych thought process normal, cooperative and affect normal Appearance: appropriate Weight / BMI Weight Weight: 205 lb 14.588 oz Body Mass Index (BMI) 35.3 ABG / Lab / Microbiology Data 04/07/23 05:20 04/07/23 05:20 Laboratory: Laboratory Results - last 24 hr 04/06/23 20:42: POC Glucose 247 H 04/07/23 05:20: WBC 8.2, RBC 4.69, Hgb 12.6, Hct 39.6, MCV 84.4, MCH 26.9 L, MCHC 31.8 L, RDW Std Deviation 50.3 H, RDW Coeff of Dutch 16.2 H, Plt Count 205, MPV 10.9, Immature Gran % (Auto) 0.100, Neut % (Auto) 56.5, Lymph % (Auto) 30.2, [place] % (Auto) 7.4, Eos % (Auto) 5.1 H, Baso % (Auto) 0.7, Absolute Neuts (auto) 4.6, Absolute Lymphs (auto) 2.48, Nucleated RBC % 0, Sodium 141, Potassium 3.7, Chloride 110 H, Carbon Dioxide 26.0, Anion Gap 5, BUN 19 H, Creatinine 0.88, Estim Creat Clear Calc 71.55, Est GFR (MDRD) Af Amer 83, Est GFR (MDRD) Non-Af 69, BUN/Creatinine Ratio 21.6 H, Glucose 246 H, Calcium 8.6 04/07/23 06:29: POC Glucose 220 H 04/07/23 08:42: POC Glucose 167 H D/C Instructions Discharge Diet: Low fat / Low cholesterol Discharge Activity: Return to Normal Activity Weight Bearing Status: Weight bearing as tolerated Call your doctor if you observe: Fever of 101 or Higher, Shortness of breath, Dizziness, Swelling in the ankles and Chest pain Meaningful Use Info Meaningful Use Diagnoses (Choose all that apply): AMI AMI/Post PCI/Angioplasty Aspirin given w/in 24hrs of arrival?: Yes ASA at discharge?: Yes Statins at discharge?: Yes James/ARB at discharge?: Yes Beta Arti at discharge?: Yes Done w/ Acute DC measure.: Yes Documented LVEF (%): 55 Discharge Plan Admission Admit Date/Time: 04/05/23 23:30 Primary Reason for Your Visit: Chest pain, uncontrolled hypertension. Attending Provider: Ellen Conway Primary Care Provider: Fara Bernal Consulting Providers: Sheng Pritchard; Myla Lopez Discharge Orders/Prescriptions Prescriptions: New amlodipine 10 mg Tablet 10 mg PO DAILY Qty: 30 2RF Continued cholecalciferol (vitamin D3) 50 mcg (2,000 unit) capsule 2,000 units PO DAILY Patient Comments: TAKE 1 CAPSULE BY MOUTH EVERY DAY insulin degludec [Tresiba FlexTouch U-100] 100 unit/mL (3 mL) insulin pen 50 unit SC DAILY insulin aspart U-100 100 unit/mL (3 mL) insulin pen 40 unit subcut BREAKFAST Rx Instructions: sliding scale albuterol sulfate [Proventil HFA] 90 mcg/actuation HFA aerosol inhaler 2 puff INHALATION Q6H PRN (Reason: Sob &/Or Wheezing) metformin 1,000 mg tablet 1,000 mg PO BID (DME) pen needle, diabetic 31 gauge x 5/16 needle See Rx Instructions .ROUTE .MEDSUPPLY Qty: 1200 Patient Comments: USE DIRECTED 4 TIMES DAILY WITH INSULIN DX E11.9 Rx Instructions: As directed losartan 50 mg tablet 50 mg PO DAILY Qty: 90 3RF (DME) FreeStyle Moses 14 Day Sensor Kit See Rx Instructions .ROUTE .MEDSUPPLY Qty: 1 Patient Comments: USE 1 SENSOR EVERY 14 DAYS Rx Instructions: As directed insulin aspart U-100 100 unit/mL (3 mL) insulin pen 30 unit subcut .COMPLEX Rx Instructions: 30 units subcutaneously 30 units at lunch and dinner; Eliquis 5 mg tablet 5 mg PO Q12H Rx Instructions: TAKE 1 TABLET BY MOUTH TWICE A DAY furosemide 40 mg tablet 40 mg PO QAM Qty: 90 3RF metoprolol succinate 50 mg tablet extended release 24 hr 50 mg PO DAILY Qty: 90 3RF Patient Comments: patient unsure if she is taking this at home or not atorvastatin [Lipitor] 40 mg tablet 40 mg PO DAILY Qty: 90 3RF Discontinued amlodipine 2.5 mg tablet 2.5 mg PO DAILY Rx Instructions: TAKE 1 TABLET BY MOUTH EVERY DAY Referrals / Follow Up: Sheng Pritchard MD [Med Staff - Active Staff] - 05/09/23 11:30 am (Appointment is with Renée Keenan N.P.) Fara Bernal DO [Primary Care Provider] - 04/14/23 12:30 pm (Appointment is with Janneth Arellano N.P.) Disposition Disposition (needs filled in before D/C Order can be placed): Home, Self Care Charges/Coding Visit Charges Inpatient E&M: 77802 Disch Hosp >30min
--- NOTE | 2023-04-07 11:12 | CASEMGMT ---
Patient has order for discharge. RN CM in to discuss needs at discharge. Patient denies needs or help at discharge. Family able to assist patient at home. Patient had no further questions or concerns.
--- NOTE | 2023-04-07 11:21 | PHA.DC.MC.R ---
Pharmacy [facility] has performed discharge medication reconciliation and counseling for this patient. The patient's discharge medication list was reviewed for discrepancies and discrepancies were resolved. The patient was counseled on the following discharge medications and changes in medications for homegoing were reviewed. The Reason for Use, instructions for use, and potential side effects were reviewed for all new medications. The patient's questions regarding all of their medications were answered. 1. Amlodipine 10 mg PO daily. The patient was able to verbally demonstrate an understanding of their discharge medications. The patient was counselled on new medication by instructor adjunct pharmacy technician Tyler. Medications at Discharge Home Medications cholecalciferol (vitamin D3) 50 mcg (2,000 unit) capsule 2,000 units PO DAILY vitamin 05/20/19 albuterol sulfate 90 mcg/actuation aerosol inhaler (Proventil HFA) 2 puff inhalation Q6H PRN Sob &/Or Wheezing 08/14/19 metformin 1,000 mg tablet 1,000 mg PO BID type II diabetes 04/02/20 pen needle, diabetic 31 gauge x 5/16 #1,200 ea 04/02/20 furosemide 40 mg tablet 40 mg PO QAM water pill #90 tabs 05/17/21 losartan 50 mg tablet 50 mg PO DAILY bp #90 tabs 07/26/21 flash glucose sensor (FreeStyle Moses 14 Day Sensor kit) #1 ea 10/19/21 insulin degludec 100 unit/mL (3 mL) subcutaneous pen (Tresiba FlexTouch U-100 insulin) 50 unit subcut DAILY type II diabetes 10/19/21 atorvastatin 40 mg tablet (Lipitor) 40 mg PO DAILY cholesterol #90 tabs 08/23/22 insulin aspart U-100 100 unit/mL (3 mL) subcutaneous pen 30 unit subcut .COMPLEX type II diabetes 08/23/22 insulin aspart U-100 100 unit/mL (3 mL) subcutaneous pen 40 unit subcut BREAKFAST DM II 08/23/22 metoprolol succinate 50 mg tablet,extended release 24 hr 50 mg PO DAILY #90 tabs 08/23/22 apixaban 5 mg tablet (Eliquis) 5 mg PO Q12H heart 04/06/23 amlodipine 10 mg tablet 10 mg PO DAILY #30 tabs 04/07/23
== END 2023-04-07 12:04 | disposition home or self-care (01) | DRG 282 ==
LOC: ED 20:42 → PCU 23:44
PROVIDERS: Admitting Provider Family Medicine; Emergency Provider Emergency Medicine; PCP Family Medicine; Referring Provider Family Medicine; Visit Provider Student in an Organized Health Care Education/Training Program
DX: I11.0 Hypertensive heart disease with heart failure (principal); I21.A1 Myocardial infarction type 2; E11.51 Type 2 diabetes mellitus with diabetic peripheral angiopathy without gangrene; I50.32 Chronic diastolic (congestive) heart failure; E11.65 Type 2 diabetes mellitus with hyperglycemia; I25.110 Atherosclerotic heart disease of native coronary artery with unstable angina pectoris; I48.0 Paroxysmal atrial fibrillation; Z79.4 Long term (current) use of insulin; I69.311 Memory deficit following cerebral infarction; E78.2 Mixed hyperlipidemia; G47.33 Obstructive sleep apnea (adult) (pediatric); I25.2 Old myocardial infarction; I69.322 Dysarthria following cerebral infarction; E66.9 Obesity, unspecified; Z68.36 Body mass index [BMI] 36.0-36.9, adult; Z95.1 Presence of aortocoronary bypass graft; Z79.01 Long term (current) use of anticoagulants; Z79.82 Long term (current) use of aspirin; Z79.84 Long term (current) use of oral hypoglycemic drugs; Z79.899 Other long term (current) drug therapy; Z86.718 Personal history of other venous thrombosis and embolism; Z85.72 Personal history of non-Hodgkin lymphomas
CPT/HCPCS: 36415; 71045; 80048; 80053; 80061; 82962; 83735; 84484; 85025; 93005; 93306; 93459; 93567; 94668; 99152; 99153; 99252; 99285; C1894; J7030; Q9967; A4216; C1769; G0463

== ENCOUNTER → 2023-04-14 | Outpatient (CLI) | payer MEDICARE, MEDICAID, SELFPAY ==
[2023-04-14 15:47] LABS: Absolute Lymphocyte Count 2.88 X10^3/uL (0.83-4.51); Absolute Neutrophil Count 5.8 X10^3/uL (2.0-7.7); Basophil# 0.09 X10^3/uL; Basophil% 0.9 % (0-1); Eosinophil# 0.51 X10^3/uL; Eosinophils% 5.1 % (0-5); Hematocrit 45.7 % (37-47); Hemoglobin 14.3 g/dL (12.0-15.0); Lymphocyte # 2.88 X10^3/ul (0.83-4.51); Lymphocyte % 28.7 % (19-41); Mean Corp Hgb Conc 31.3 g/dL (32-36); Mean Corpuscular Hgb 26.6 pg (27.0-32.0); Mean Corpuscular Volume 85.1 fL (81-99); Monocyte# 0.69 X10^3/uL; Monocyte% 6.9 % (0-10); NRBC Flagged by Analyzer 0 % (0-5); Neutrophil # 5.82 X10^3/uL (2.7-7.7); Neutrophil % 58.1 % (47-70); Platelet Count 201 K/mm3 (150-450); RBC Distribution Width CV 15.4 % (11.6-14.6); RBC Distribution Width SD 47.6 fl (35.1-43.9); Red Blood Count 5.37 M/mm3 (4.2-5.4)
[2023-04-14 16:21] LABS: Ferritin 68 ng/mL (8-252); Free T3 2.3 pg/mL (2.18-3.98); Iron 55 ug/dL (50-170); T4 Free Direct 0.88 ng/dL (0.76-1.46); T4 Total, Thyroxin 7.2 ug/dL (4.8-13.9); Thyroid Stim Hormone (TSH) 6.85 uIU/mL (0.358-3.74)
[2023-04-14 16:38] LABS: Vitamin D,25 Hydroxy 19.6 ng/mL
[2023-04-18 09:08] LABS: Anti-Thyroglobulin AB < 1.0 IU/mL (0.0-0.9); Thyroglobulin, Serum Qt. 40.7 ng/mL (1.5-38.5); Thyroid Peroxidase AB < 9 IU/mL (0-34); Thyroxin Bind Glob (TBG) 17 ug/mL (13-39)
== END | disposition home or self-care (01) ==
LOC: BFHLAB 13:25
PROVIDERS: PCP Nurse Practitioner Family; Visit Provider Nurse Practitioner Family
DX: I10 Essential (primary) hypertension (principal); E03.8 Other specified hypothyroidism; E55.9 Vitamin D deficiency, unspecified; D64.9 Anemia, unspecified
CPT/HCPCS: 36415; 82306; 82728; 83540; 84432; 84436; 84439; 84442; 84443; 84481; 85025; 86376; 86800

== ENCOUNTER → 2023-05-05 | Outpatient (CLI) | payer MEDICARE, MEDICAID, SELFPAY ==
--- NOTE | 2023-05-05 13:57 | RAD_ITS ---
STUDY: X-RAY - LEFT SHOULDER REASON FOR EXAM: Female, 63 years old. Shoulder injury TECHNIQUE: 4 view(s) of the shoulder. COMPARISON: None. FINDINGS: Normal glenohumeral articulation. Normal acromioclavicular joint. Normal acromion. Normal humeral head and visualized proximal humerus. The soft tissue structures are unremarkable. Normal visualized pulmonary apex. RAD/Shoulder min 2 Views IMPRESSION: Normal x-ray examination of the shoulder. Electronically Signed: William Hines MD at 14:18 EDT ,
== END | disposition home or self-care (01) ==
LOC: MTRAD 13:57
PROVIDERS: PCP Nurse Practitioner Family; Referring Provider Physician Assistant Surgical; Visit Provider Physician Assistant Surgical
DX: S49.92XA Unspecified injury of left shoulder and upper arm, initial encounter (principal); X58.XXXA Exposure to other specified factors, initial encounter
CPT/HCPCS: 73030

== ENCOUNTER → 2023-06-17 | Outpatient (CLI) | payer MEDICARE, MEDICAID, SELFPAY ==
--- NOTE | 2023-06-17 08:06 | MRI_ITS ---
HISTORY: pain, inability to lift, cuff tear? TECHNIQUE: Multiplanar and multisequence MR images of the left shoulder were obtained without contrast. 140 images. COMPARISON: XR 05/05/2023. FINDINGS: BONE: No acute fracture or Hill-Sachs lesion. ACROMIOCLAVICULAR JOINT: Mild degenerative change. SUBACROMIAL-SUBDELTOID SPACE: No significant bursal fluid. GLENOHUMERAL JOINT: Mild degenerative change. No joint effusion. ROTATOR CUFF: Tendinopathy and small articular surface tear of the supraspinatus tendon. Infraspinatus tendinopathy with interstitial and partial thickness bursal surface tears. Mild subscapularis tendinopathy. Intact teres minor tendon. No retracted tendon tear or significant cuff muscle atrophy. LABRUM: Degeneration or tear of the superior labrum. BICEPS TENDON: Mild intra-articular biceps tendinopathy. Surgical biceps tendon in the bicipital groove. OTHER SOFT TISSUES: Mild fluid in the subcoracoid bursa. MRI/Upper Ext Joint Only(Routine) IMPRESSION: Rotator cuff tendinopathy with partial supraspinatus and infraspinatus tendon tears. Mild degenerative change of the left shoulder. Electronically Signed: Aimee Galvan MD at 10:53 EDT ,
== END | disposition home or self-care (01) ==
LOC: MRI 07:50
PROVIDERS: PCP Family Medicine; Referring Provider Orthopaedic Surgery Sports Medicine; Visit Provider Orthopaedic Surgery Sports Medicine
DX: M25.812 Other specified joint disorders, left shoulder (principal)
CPT/HCPCS: 73221

== ENCOUNTER 2023-07-04 10:00 | Outpatient (RCR) | payer MEDICARE, MEDICAID, SELFPAY ==
--- NOTE | 2023-06-06 13:15 | HP.PTEVAL_ITS ---
Patient's Visit Information Visit Information Visit Information: JOSH GRAY is a 63 year old F referred to Physical Therapy by Dr. Girma Conley MD with a diagnosis of L shoulder impingement. Date of Evaluation: 06/06/23 Physical Therapist: RACIEL Hurtado Visit Plan Frequency: 2x /Week Duration: 2 Months Plan: 2X/ week for 8 weeks for L shoulder PROM/AAROM/AROM, postural and scapular exercises, RC strength with HEP HEP: scapular squeezes Subjective Subjective: She fell down 2-3 steps and fell and hurt her L shoulder. She went the next day or day after and she went to Urgent Care and they said it was not broke. She then went to see Dr Conley. She got a shot of cortisone and try and see if they will ok and MRI and sent her here for PT. She has N&T in her fingers but it was there before the accident. She had a stroke 4.5 years ago and everything is messed up. She is R handed. She has pain when she moves her arm out to the side and can not raise it very high or into fexion. She can lay on her L shoulder but it does not feel very well. R handed. It feels a tiny bit better since the injection Pain L shoulder pain: Pain Intensity (Out of 10): 3 Pain Intensity Range: 6 Comment: with movement Objective Objective: R handed: R 35# and L 22# UE AROM: R 130 and L flexion 105 R 122 and L ABD 96 R L3 IR and L IR Ischial Tuberosity R ER 63 and L 65 UE MMT: R shoulder flex 3.8 and L 2.5 R shoulder ABD 3.2 and L 1 R shoulder ER 4.2 and L 2.8 R shoulder IR 3.9 and L 4 +HK for impingement on the L (unable to reach L hand onto the R shoulder due to anterior shoulder pain) Balance/Special Test Scores Quick DASH Score: 45.4525 Goals Goal 1:: I HEP Goal Time Frame: 6-8 Weeks Goal 2:: Increase L shoulder AROM (at the time of the eval UE AROM: R 130 and L flexion 105 R 122 and L ABD 96 R L3 IR and L IR Ischial Tuberosity R ER 63 and L 65) Goal Time Frame: 6-8 Weeks Goal 3:: Increase L shoulder strength (at the time of the eval: R shoulder flex 3.8 and L 2.5 R shoulder ABD 3.2 and L 1 R shoulder ER 4.2 and L 2.8 R shoulder IR 3.9 and L 4). Goal Time Frame: 6-8 Weeks Goal 4:: Be able to use her UE for ADL's with less than 2/10 pain Goal Time Frame: 6-8 Weeks Rehabilitation Potential Rehabilitation Potential: Good Anticipated Interventions Patient/Client Instruction: Educate patient on: Condition and Plan of Care For the Purpose of:: To decrease pain, To increase ROM, To improve nutrient delivery to tissue, To improve muscle performance and motor function, To improve ability to perform ADL's, To increase tolerance to activity/condition/position, To improve performance and independence with ADL's, To decrease level of supervision to perform tasks, To improve ability of physical actions for home/ community/work/leisure, To decrease soft tissue restriction and To increase flexibility/ROM Therapeutic Exercise to Include: Strength training, Postural training, Flexibilty training, Passive ROM, Active ROM and Scapular Strength/Stabilization For the Purpose of:: To decrease pain, To increase ROM, To improve nutrient delivery to tissue, To improve muscle performance and motor function, To improve ability to perform ADL's, To increase tolerance to activity/condition/position, To improve performance and independence with ADL's, To decrease level of supervision to perform tasks, To improve ability of physical actions for home/community/work/leisure, To improve gait and locomotor functions, To improve health of tissue, To decrease soft tissue restriction and To increase flexibility/ROM Manual Therapy Techniques to Include: Passive ROM For the Purpose of:: To increase ROM and To improve nutrient delivery to tissue Text: Thank you for the opportunity to evaluate your patient. For Medicare and Medicare HMO plans, please review the plan of care and approve it. It will need to be FAXED BACK to us at [phone] for Medicare purposes. For Medicare only, by signing this I certify the plan of care. Please let me know if there are questions or concerns regarding this plan of care. Physician Signature: Date:
--- NOTE | 2023-07-04 10:27 | HP.PTDCSUM ---
Discharge Summary D/C summary: It has been my pleasure to treat JOSH GRAY referred by Dr. Girma Conley MD, with the diagnosis of L shoulder impingement for a total of 9 visit(s). Discharge Date: 07/04/23 Please see the following information for a summary of their discharge status. Subjective Subjective: Pt walking in eating a cookie and drinking a Dr pepper because her blood sugar is low. She is trying to decide if she wants the surgery or not because she will be home alone. She feels that she can move her arm better but she can not reach from her bed to get her drink off the dresser and she has to be careful what she does. The pt feels that more PT is not going to make her shoulder any better. She will go back to her surgeon. Pain L shoulder pain: Pain Intensity (Out of 10): 2 Overall Improvement % Improvement: 25 Objective Objective/Function: UE AROM: R 130 and L flexion 115 R 122 and L ABD 110 R L3 IR and L IR L3 R ER 63 and L 65 R shoulder flex 3.8 and L 3.6 R shoulder ABD 3.2 and L 3.5 R shoulder ER 4.2 and L 4.8 R shoulder IR 3.9 and L 4.9 Goals Goal 1:: I HEP Goal Progress: Goal Met Goal 2:: Increase L shoulder AROM (at the time of the eval UE AROM: R 130 and L flexion 105 R 122 and L ABD 96 R L3 IR and L IR Ischial Tuberosity R ER 63 and L 65) Goal Progress: Progressing Goal 3:: Increase L shoulder strength (at the time of the eval: R shoulder flex 3.8 and L 2.5 R shoulder ABD 3.2 and L 1 R shoulder ER 4.2 and L 2.8 R shoulder IR 3.9 and L 4). Goal Progress: Progressing Goal 4:: Be able to use her UE for ADL's with less than 2/10 pain Goal Progress: Not Progressing Plan Plan: DC PT back to surgeon D/C Information Discharge Comments: DC PT to HEP and back to surgeon d/c sentence: If there are questions or concerns regarding this patient's physical therapy, please feel free to call me at [phone]. Thank you for the referral of this patient. Sincerely, Sophia Pérez, MPT Balance/Gait/Functional tests Balance/Special Test Scores Quick DASH Score: 40.9075 Improvement % Improvement: 25
== END 2023-07-04 19:00 | disposition home or self-care (01) ==
LOC: PT 10:00
PROVIDERS: PCP Family Medicine; Referring Provider Orthopaedic Surgery Sports Medicine; Visit Provider Orthopaedic Surgery Sports Medicine
DX: M25.512 Pain in left shoulder (principal); M25.812 Other specified joint disorders, left shoulder
CPT/HCPCS: 97110; 97140; 97161; 97530

== ENCOUNTER → 2023-08-04 | Outpatient (CLI) | payer MEDICARE, MEDICAID, SELFPAY ==
[2023-08-04 10:10] LABS: Absolute Lymphocyte Count 3.16 X10^3/uL (0.83-4.51); Absolute Neutrophil Count 4.8 X10^3/uL (2.0-7.7); Basophil% 1.1 % (0-1); Eosinophil# 0.36 X10^3/uL; Eosinophils% 3.9 % (0-5); Hematocrit 38.2 % (37-47); Hemoglobin 12.6 g/dL (12.0-15.0); Lymphocyte # 3.16 X10^3/ul (0.83-4.51); Lymphocyte % 34.3 % (19-41); Mean Corpuscular Hgb 29.3 pg (27.0-32.0); Mean Corpuscular Volume 88.8 fL (81-99); Mean Platelet Vol. 11.8 fl (6.2-12.0); Monocyte# 0.68 X10^3/uL; Monocyte% 7.4 % (0-10); NRBC Flagged by Analyzer 0 % (0-5); Neutrophil # 4.82 X10^3/uL (2.7-7.7); Neutrophil % 52.4 % (47-70); Platelet Count 187 K/mm3 (150-450); RBC Distribution Width CV 15.5 % (11.6-14.6); RBC Distribution Width SD 50.4 fl (35.1-43.9); White Blood Count 9.2 K/mm3 (4.4-11.0)
[2023-08-04 11:06] LABS: ALB/GLOB Ratio 0.8 RATIO (0.9-2.4); AST(SGOT) 23 U/L (15-37); Alanine Aminotransfer ALT/SGPT 21 U/L (13-56); Albumin, Serum 3.2 g/dL (3.2-5.0); Alkaline Phosphatase 80 U/L (45-117); Anion Gap 7 (5-15); BUN 25 mg/dL (7-18); BUN/Creat Ratio 28.5 RATIO (10-20); Calcium,Total 9.6 mg/dL (8.5-10.1); Chloride 104 mmol/L (98-107); Cholesterol 133 mg/dL (200); Creatinine, Serum 0.88 mg/dL (0.55-1.02); EST Glomerular Filtration Rate 69 mL/min (>60); Est Glom Filt Rate - Afr Amer 83 mL/min (>60); Free T3 2.7 pg/mL (2.18-3.98); Globulin 4.1 g/dL (2.2-4.2); Glucose 225 mg/dL (74-106); High Density Lipoprotein 43 mg/dL; Potassium 3.7 mmol/L (3.5-5.1); Protein, Total 7.3 g/dL (6.4-8.2); Sodium Level 137 mmol/L (136-145); T4 Free Direct 1.03 ng/dL (0.76-1.46); Thyroid Stim Hormone (TSH) 4.23 uIU/mL (0.358-3.74); Triglycerides 145 mg/dL; Very Low Density Lipoprotein 29 mg/dL (5-40)
== END | disposition home or self-care (01) ==
LOC: MTLAB 08:30
PROVIDERS: PCP Family Medicine; Referring Provider Family Medicine; Visit Provider Family Medicine
DX: E03.9 Hypothyroidism, unspecified (principal); E11.9 Type 2 diabetes mellitus without complications; Z51.81 Encounter for therapeutic drug level monitoring; R79.89 Other specified abnormal findings of blood chemistry; E78.5 Hyperlipidemia, unspecified; I10 Essential (primary) hypertension
CPT/HCPCS: 36415; 80053; 80061; 82043; 82570; 84439; 84443; 84481; 85025

== ENCOUNTER → 2023-09-25 | Outpatient (CLI) | payer MEDICARE, MEDICAID, SELFPAY ==
--- NOTE | 2023-09-25 10:06 | RAD_ITS ---
STUDY: X-RAY CHEST REASON FOR EXAM: Female, 63 years old. Cough and shortness of breath. TECHNIQUE: PA and lateral views of the chest. COMPARISON: Comparison is made with prior study dated April 05, 2023. FINDINGS: The lungs are clear and expanded. There is no demonstrated pleural abnormality. Sternal cerclage wires and vascular clips are present from a prior sternotomy and coronary artery bypass graft procedure (CABG). Normal mediastinum and tara. Normal visualized pulmonary arteries. There is atherosclerotic tortuosity of the aortic arch and descending thoracic aorta. There is demineralization of the osseous structures. Normal visualized ribs, clavicles, and shoulders. There is no demonstrated abnormality of the visualized soft tissue structures of the upper abdomen. RAD/Chest PA and Lateral IMPRESSION: Status post CABG. No acute abnormality is seen. Electronically Signed: William Hines MD at 11:01 EDT ,
--- NOTE | 2023-09-25 10:07 | RAD_ITS ---
STUDY: X-RAY - RIGHT FOOT CLINICAL: Female, 63 years old. R foot wound x1 mo (h/o DM) TECHNIQUE: 3 view(s) of the foot. COMPARISON: Comparison is made with prior study dated December 17, 2014. FINDINGS: There is a plantar calcaneal spur. Normal visualized subtalar, talonavicular, calcaneocuboid, tarsal and tarsometatarsal articulations. I suspect erosive changes in the lateral aspect of the fifth metatarsal head. Ostiomeatal myelitis should be ruled out. There is degenerative arthrosis of the metatarsophalangeal joint of the hallux with a hallux valgus deformity. Normal tibial and fibular sesamoid bones. Normal interphalangeal joint of the great toe. Normal phalanges of the great toe. Normal second through fifth metatarsophalangeal joints. Normal interphalangeal joints and phalanges of the lesser toes. Soft tissue swelling with ulceration overlying the fifth metatarsal phalangeal joint. Vascular calcification. RAD/Foot min 3 Views IMPRESSION: Soft tissue swelling and ulceration overlying the fifth metatarsophalangeal joint. Erosive changes are seen along the lateral aspect of the fifth metatarsal head. Osteomyelitis should be ruled out. Plantar spur. Electronically Signed: William Hines MD at 11:03 EDT ,
== END | disposition home or self-care (01) ==
LOC: MTRAD 10:05
PROVIDERS: PCP Family Medicine; Referring Provider Physician Assistant; Visit Provider Physician Assistant
DX: S91.301A Unspecified open wound, right foot, initial encounter (principal); R05.9 Cough, unspecified
CPT/HCPCS: 71046; 73630

== ENCOUNTER → 2023-10-05 | Outpatient (CLI) | payer MEDICARE, MEDICAID, SELFPAY ==
--- NOTE | 2023-10-05 14:08 | MRI_ITS ---
STUDY: MRI RIGHT FOREFOOT WITHOUT CONTRAST REASON FOR EXAM: Female, 63 years old. Ulcer of part of foot, Type 2 diabetes mellitus TECHNIQUE: Standardized fat and water weighted pulse sequences were obtained in all 3 orthogonal planes. COMPARISON: X-ray FINDINGS: There is degenerative arthrosis of the metatarsophalangeal joint of the hallux with a hallux valgus deformity. Normal tibial and fibular sesamoids, with normal sesamoids-first metatarsal articulations. Normal interphalangeal joint of the hallux. Normal proximal and distal phalanges of the great toe. Normal medial and lateral heads of the flexor hallucis brevis tendons. Normal flexor and extensor hallucis longus tendons. Normal second through fifth metatarsophalangeal (MTP) joints. Normal interphalangeal joints of the second through fifth toes. Normal proximal, middle and distal phalanges of the second through fifth toes. Normal first through fourth intermetatarsal spaces. Normal flexor and extensor tendons of the second through fifth toes. There is focal marrow edema of the lateral aspect of the fifth metatarsal head, series 7 image 13. There is degenerative change of the tarsometatarsal articulations. There is diffuse atrophy of the intrinsic muscles of the forefoot consistent with a peripheral neuropathy. There is lateral soft tissue swelling and subcutaneous edema. MRI/Lower Ext/No Jt/w/o IMPRESSION: Focal edema of the fifth metatarsal head consistent with osteomyelitis. Lateral soft tissue swelling. Arthritic change with hallux valgus. Electronically Signed: Nick Becerril MD at 23:41 EDT ,
== END | disposition home or self-care (01) ==
LOC: MRI 13:47
PROVIDERS: PCP Family Medicine; Referring Provider Student in an Organized Health Care Education/Training Program; Visit Provider Student in an Organized Health Care Education/Training Program
DX: E11.621 Type 2 diabetes mellitus with foot ulcer (principal); L97.512 Non-pressure chronic ulcer of other part of right foot with fat layer exposed; E11.42 Type 2 diabetes mellitus with diabetic polyneuropathy
CPT/HCPCS: 73718

== ENCOUNTER 2023-10-19 09:45 | Outpatient (RCR) | payer MEDICARE, MEDICAID, SELFPAY ==
[2023-10-05 10:35] VITALS: BP 193/86; PULSE 85; RESP 18; TEMP 36.1; BMI 34.3
--- NOTE | 2023-10-05 13:17 | PCM.WC.HP ---
History of Present Illness Date of Service: 10/05/23 Chief Complaint: Right foot ulceration History of Wound: Patient is a 63-year-old female with PMHx of DM type II of 28 years, Hx of CVA (12/14/2018) with right sided weakness, PVD, obesity, CHF, MARLEN, and Hx of non-Hodgkin lymphoma 2012. Patient states that she has had an ulceration of the plantar lateral aspect of the right foot for roughly now 6 weeks. States that after attempting care for 4 weeks she did [facility] where she was placed on oral doxycycline for 10 days. Radiographs were taken at that time demonstrating subtle erosive changes that could not rule out osteomyelitis. She was referred to the wound care center for continued care of her ulceration at that time. Patient was not prescribed offloading shoe and had only been caring for the ulceration with a Band-Aid following the visit at the [facility]. Patient had also been soaking in Epsom salt daily as instructed by [facility]. Patient denies pain about the ulcerative site. Denies trauma as initiating cause. Denies N/V/F/chills. Denies further complaints. [facility] Medical History (Updated 10/05/23 @ 13:[address] Pavel Trimble, DPM) Osteomyelitis Left rotator cuff tear Impingement of left shoulder Left shoulder pain PAF (paroxysmal atrial fibrillation) Diabetic retinopathy associated with type 2 diabetes mellitus Obesity Skin lesion of left lower extremity Dysarthria Dyspnea Chronic diastolic (congestive) heart failure MARLEN (obstructive sleep apnea) Slurred speech CVA (cerebral vascular accident) (12/14/18) Essential (primary) hypertension Type 2 diabetes mellitus Incontinent of urine neck/back pain Limb weakness Anemia Shoulder pain Arthritis History of deep venous thrombosis (DVT) of distal vein of left lower extremity (04/13/13) 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) Hyperlipidemia History of non-ST elevation myocardial infarction (NSTEMI) (04/08/13) History of non-Hodgkin's lymphoma (2012) Polycystic ovaries IBS (irritable bowel syndrome) Home Medications ?Medication ?Instructions ?Recorded ?Last Taken ?Type cholecalciferol (vitamin D3) 50 2,000 units PO DAILY vitamin 05/20/19 04/05/23 10:00 History mcg (2,000 unit) capsule albuterol sulfate 90 mcg/actuation 2 puff inhalation Q6H PRN Sob &/Or 07/01/20 02/21/24 10:00 History aerosol inhaler (Proventil HFA) Wheezing metformin 1,000 mg tablet 1,000 mg PO BID type II diabetes 04/02/20 04/05/23 10:00 History pen needle, diabetic 31 gauge x #1,200 ea 04/02/20 Unknown History 5/16 losartan 50 mg tablet 50 mg PO DAILY bp #90 tabs 07/26/21 04/05/23 10:00 Rx flash glucose sensor (FreeStyle #1 ea 10/19/21 Unknown History Moses 14 Day Sensor kit) insulin degludec 100 unit/mL (3 50 unit subcut DAILY type II 10/19/21 04/05/23 10:00 History mL) subcutaneous pen (Tresiba diabetes FlexTouch U-100 insulin) atorvastatin 40 mg tablet (Lipitor) 40 mg PO DAILY cholesterol #90 tabs 08/23/22 04/05/23 10:00 Rx insulin aspart U-100 100 unit/mL 30 unit subcut .COMPLEX type II 08/23/22 04/05/23 13:30 History (3 mL) subcutaneous pen diabetes insulin aspart U-100 100 unit/mL 40 unit subcut BREAKFAST DM II 08/23/22 04/05/23 10:00 History (3 mL) subcutaneous pen metoprolol succinate 50 mg 50 mg PO DAILY #90 tabs 08/23/22 Unknown Rx tablet,extended release 24 hr amlodipine 10 mg tablet 10 mg PO DAILY #30 tabs 04/07/23 Unknown Rx apixaban 5 mg tablet (Eliquis) See Rx Instructions .Route 04/10/23 Unknown Rx .COMPLEX #60 TABLETS furosemide 40 mg tablet See Rx Instructions .Route 04/10/23 Unknown Rx .COMPLEX #90 tabs doxycycline monohydrate 100 mg 100 mg PO BID #20 caps 09/25/23 Unknown Rx capsule Allergy/AdvReac Type Severity Reaction Status Date / Time Penicillins Allergy Severe Rash Verified 09/25/23 09:52 grass pollen Allergy Intermediate Other Verified 09/25/23 09:52 tree and shrub pollen Allergy Intermediate Other Verified 09/25/23 09:52 lisinopril AdvReac Intermediate Other Verified 09/25/23 09:52 hydrocodone bitartrate (From AdvReac Mild Unknown Verified 09/25/23 09:52 Vicodin) losartan AdvReac Heart Burn Verified 09/25/23 09:52 Family History Father , 65 Diabetes Hypertension cabg Mother , Age 65 Hypertension Renal failure Sister Cancer Sister Diabetes Cardiomegaly Surgical History History of left heart catheterization (07/26/18) H/O coronary artery bypass surgery (04/10/13) Atherosclerotic heart disease of [place] coronary artery without angina pectoris Social History Smoking Status: Never smoker alcohol intake: never substance use type: does not use caffeine: Yes Type: coffee Number of servings: 2 ROS Constitutional Constitutional: Denies chills, fatigue or fever(s) Eyes Eyes: Denies blurry vision, change in vision or double vision ENT HEENT: Denies dysphagia, nasal congestion or sore throat Cardiovascular Cardiovascular: Denies chest pain, claudication or palpitations Respiratory/Chest Respiratory/Chest: Denies cough, shortness of breath at rest or wheezing Gastrointestinal Gastrointestinal: Denies abdominal pain, constipation, diarrhea, nausea or vomiting Genitourinary Genitourinary: Denies dysuria, hematuria or urinary urgency Musculoskeletal Musculoskeletal: Denies joint pain, joint stiffness or joint swelling Integumentary Integumentary: Denies jaundice, lesions, pruritus or rash Neurologic Neurologic: Denies dizziness, numbness or seizures Psychiatric Psychiatric: Denies anxiety or depression Endocrine Endocrinology: Denies cold intolerance or heat intolerance Hematologic/Lymphatic Hematologic/Lymphatic: Denies easy bleeding or easy bruising Vital Signs Vital Signs Vital Signs: 10/05/23 10:35 Temperature 97 F L Temperature Source Temporal Pulse Rate 85 Respiratory Rate 18 Blood Pressure 193/86 H Blood Pressure Mean 121 Blood Pressure Source Monitor Blood Pressure Position Semi-Fowlers Blood Pressure Location Left Arm Weight Weight: 90.718 kg Body Mass Index (BMI) 34.3 Physical Exam Const alert, oriented x3 and no apparent distress Constitutional Narrative: Nontoxic-appearing General Appearance: cooperative HEENT normocephalic Eyes Eyes Narrative: Wears glasses General Eye: normal appearance of both eyes Neck General: normal visual inspection Lymph Lymphatic: no lymphadenopathy noted and no lymphedema noted Resp normal respiratory effort Cardio regular rate and regular rhythm Extremity no calf tenderness Extremity Narrative: Right lower extremity: Vascular: DP and PT pulses nonpalpable. Doppler demonstrates monophasic DP and PT. CFT is less than 5 seconds to the digits. Hair growth is absent to digits. Normal temperature gradient is noted. No increased temperature about the ulcerative site. Neurologic: Protective sensation is absent consistent with diabetic peripheral polyneuropathy. Musculoskeletal: Muscle strength 5 of 5 age-appropriate. 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 Decreased range of motion of the first metatarsophalangeal joint without pain or crepitus. Decreased range of motion of the ankle joint in dorsiflexion with the knee extended without pain or crepitus. Dermatologic: There is a full-thickness ulceration noted at the plantar lateral aspect of the fifth metatarsal head tailor's bunion deformity with surrounding hyperkeratosis and necrotic wound center. There is also macerated tissue about the border with serosanguineous drainage. Slight malodor noted. Predebridement ulceration measures 1.4 cm x 1.4 cm. Ulceration does not probe to bone however is fairly deep. No palpable fluctuance/bogginess. No visible abscess formation. No purulent drainage. No lymphangitic streaking or soft tissue crepitus noted. Skin no rashes or lesions noted, skin turgor normal and no jaundice Neuro moves all extremities Debridement Note Debridement Note Post-Debridement Measurements and Additional Note: Post-Debridement Measurements/Treatment WC - Nurse 1 - General Ulcer Assessment Start: 10/05/23 10:35 Freq: Status: Active Protocol: ENID.LOWEXT Activity Type Activity Date Activity User E-sign Co-sign Detail Recorded Client Recorded Date Recorded By Document 10/05/23 10:35 RB [id number] 10/05/23 10:45 RB Edit Result 10/05/23 10:35 RB (1) [id number] 10/05/23 10:50 RB Edit Result 10/05/23 10:35 RB (2) [id number] 10/05/23 10:57 RB (1) Height => 5 ft 4 in Weight => 90.718 kg Weight in Pounds => 200.0 lbs Body Mass Index (BMI) => 34.3 BMI Classification => Obese BSA - [place] => 1.96 (2) Right - Popliteal Doppler => Monophasic - Posterior Tibial Doppler => Monophasic Left - Popliteal Doppler => Monophasic - Posterior Tibial Doppler => Monophasic 10/05/23 10:35 WC - Today's Visit Information Type of service Initial Visit Arrival Mode Ambulatory Transfer Assistance None Patient Identification Verified (Name & Yes ) Patient Requires Transmission-Based No Precautions Height and Weight Height 5 ft 4 in Weight 90.718 kg Weight in Pounds 200.0 lbs Body Mass Index (BMI) 34.3 BMI Classification Obese BSA - [place] 1.96 Vital Signs Temperature (97.8 F-99.1 F) 97 F L Temperature Source Temporal Pulse Rate (60-100) 85 Pulse Location Monitor Respiratory Rate (12-18) 18 Respiratory rate source Observation Blood Pressure (90/60-120/80) 193/86 H Blood Pressure Mean 121 Source Monitor Position Semi-Fowlers Blood Pressure Location Left Arm History Since Last Visit- (Skip if this is Patient's initial visit) Have you changed medications since your No last visit? Any new allergies or adverse reactions No Had a fall/change in ADL's that may No increase risk of falls Signs or symptoms of abuse and/or No neglect since last visit Have you been in the hospital since your No last visit? Has dressing in place as prescribed Yes Has compression in place as prescribed No Has offloadiing in place as prescribed No Experienced any changes in pain level or No management Pain Scale: 0-10 Numeric Is Patient Pain Free? No R FOOT -Description Burning,Aching -Intensity 3 -Duration (hours) Acute -Pain Behavior Withdrawal from Touch -Pain Aggravating Factors Exercise/ Activity, Standing -Alleviating Factors/Interventions Medication -Effectiveness of Alleviating Factor/ Moderately Intervention effective Lower Extremity Assessment/ Foot Assessment/ Toe Nail Assessment Right -Popliteal Doppler Monophasic -Posterior Tibial Palpable Yes -Posterior Tibial Doppler Monophasic -Dorsalis Pedis Palpable Yes -Extremity Color Normal -Hair Growth on Legs Yes -Hair Growth on Toes No -Temperature of Extremity Warm -Capillary Refill Greater than 3 Seconds -Dependent Rubor No -Blanched when Elevated No -Lipodermatosclerosis No -Other Deformity No -Prior Foot Ulcer No -Charcot Joint No -Prior Amputation No -Thick No -Discolored No -Deformed No -Improper Length & Hygeine Yes Left -Popliteal Doppler Monophasic -Posterior Tibial Palpable Yes -Posterior Tibial Doppler Monophasic -Dorsalis Pedis Palpable Yes -Extremity Color Normal -Hair Growth on Legs Yes -Hair Growth on Toes No -Temperature of Extremity Warm -Capillary Refill Greater than 3 Seconds -Dependent Rubor No -Blanched when Elevated No -Lipodermatosclerosis No -Other Deformity No -Prior Foot Ulcer No -Charcot Joint No -Prior Amputation No -Thick No -Discolored No -Deformed No -Improper Length & Hygeine Yes Neuropathy Assessment Feet - Top Side and Bottom <Entered> (a) Communication Assessment Preferred language Taj[place] Able to Read Yes Able to Write Yes Communication Tools None Right Hearing Abillity Normal Left Hearing Abillity Normal Visual Assistive Devices Glasses Teaching Assessment Preferences Verbal,Written Barriers to Learning None Readiness To Learn Good Willingness to Engage in Self Management Med Activies Readiness to Engage in Self Management Med Activities Anxiety Level Anxious Cooperation Cooperative Perception Coherent Interest in Health Problem Asks Questions Education Importance Acknowledges Need Does Patient Smoke tobacco or other No substances Smoking Status Never smoker Is Patient Diabetic Yes Functional Assessment Recent Decline in Ability to Perform Denies Any Declines Culture/Confucianist/Motion Picture Narrator Cultural/Confucianist Needs that may affect No Treatment Plan Would you allow our hospital head of advertising to No meet you for the purpose of spiritual/ emotional support? Motion Picture Narrator to contact place of sabianist No Teaching: Wound Center *Welcome to the Wound Center -Person Taught Patient -Teaching Method Discussion, Demonstration -Response to teaching Verbalize Understanding (a) 1 - -THROUGHOUT 2 - + THROUGHTOUT 3 - + THROUGHOUT WC - Nurse 1 - General Ulcer Measurement Start: 10/05/23 10:35 Freq: Status: Active Protocol: Activity Type Activity Date Activity User E-sign Co-sign Detail Recorded Client Recorded Date Recorded By Document 10/05/23 10:35 RB [id number] 10/05/23 10:45 RB 10/05/23 10:35 Wound Center Nurse 1 1. R FOOT PLANTAR LATERAL -Combined with other wound No -Current Size (cm) - Length 1.5 -Current Size (cm) - Width 1.3 -Current Size (cm) - Depth 0.4 -Total Square Cm 1.95 -Photo Taken Yes -Tunneling No -Undermining/Tunneling Yes -Undermining/Tunneling Starts (O'clock 10 ) -Undermining/Tunneling Ends (O'clock) 2 -Maximum Distance (cm) 0.3 -Circular Undermining No -Exudate Amt Medium -Exudate Type Serosanguineous -Wound Margin Thickened -Granulation Amt Medium (34-66%) -Granulation Quality [place] -Slough/Fibrin Yes -Necrosis Amt Medium (34-66%) -Necrotic Tissue Type Adherent Slough -Structure Exposed N/A -Texture (Pema-wound Skin Appearance) Assessed,Callus -Moisture (Pema-wound Skin Appearance) Assessed -Color (Pema-wound Skin Appearance) Assessed -Temperature (Pema-wound Skin No Abnormality Appearance) (Pt Warm) -Tenderness on Palpation (Pema-wound No Skin Appearance) -Ulcer Cleansing Wound Cleanser -Foul Odor after Cleansing No -Anesthetic Used 5% Lidocaine Gel Lower Limb Edema Present Yes Right Calf (cm) 33.5 Right Ankle (cm) 19.5 Left Calf (cm) 35 Left Ankle (cm) 19.5 WC - Nurse 2 - General Ulcer CM Notes Start: 10/05/23 10:35 Freq: Status: Active Protocol: Activity Type Activity Date Activity User E-sign Co-sign Detail Recorded Client Recorded Date Recorded By Document 10/05/23 11:07 [facility] [id number] 10/05/23 11:21 [facility] 10/05/23 11:07 Wound Center Nurse 2 1. R FOOT PLANTAR LATERAL -Time 11:07 -Correct Patient Yes -Correct Side, Site, Position Yes -Correct Procedure Yes -Procedure Performed Yes -Type of Procedure Debridement -Clinical Debridement Subcutaneous -Tissue Removed Subcutaneous -Post Debridement (cm) - Length 1.5 -Post Debridement (cm) - Width 1.5 -Post Debridement (cm) - Depth 0.3 -Total Square (Post) (cm) 2.25 -Area of Debridement (cm) - Length 1.5 -Area of Debridement (cm) - Width 1.5 -Total Square (Area) (cm) 2.25 -Tunneling No -Undermining/Tunneling No -Circular Undermining No -Wound/Ulcer Outcome Not Healed -Ulcer Cleansing Rinsed/ Irrigated with Saline -Foul Odor after Cleansing No -Bioengineered Tissue No -Bleeding Controlled with Pressure -Treatment Response Procedure Tolerated Well -Debridement - Subq, 1st 20sq cm Yes Pain Scale: 0-10 Numeric Is Patient Pain Free? Yes WC - Nurse 3 - General Ulcer D/C NN Start: 10/05/23 10:35 Freq: Status: Active Protocol: Activity Type Activity Date Activity User E-sign Co-sign Detail Recorded Client Recorded Date Recorded By Document 10/05/23 11:28 S[facility]OTH [id number] 10/05/23 11:29 S[facility]OTH 10/05/23 11:28 Wound Care Center Nurse 3 1. R FOOT PLANTAR LATERAL -Ulcer Cleansing Rinsed/ Irrigated with Saline -Primary Dressing Applied Hysept ($) -Primary Dressing Covered/Secured with Dry Gauze & Roll Gauze, Secured with Tape Pain Scale: 0-10 Numeric Is Patient Pain Free? 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 (3) Diabetes mellitus with diabetic polyneuropathy: CODE(S): E11.42 - Type 2 diabetes mellitus with diabetic polyneuropathy (4) Type 2 diabetes mellitus with foot ulcer: CODE(S): E11.621 - Type 2 diabetes mellitus with foot ulcer; L97.509 - Non-pressure chronic ulcer of other part of unspecified foot with unspecified severity (5) Hallux valgus of right foot: CODE(S): M20.11 - Hallux valgus (acquired), right foot (6) Tailor's bunion of right foot: CODE(S): M21.621 - Bunionette of right foot (7) Peripheral arterial disease: CODE(S): I73.9 - Peripheral vascular disease, unspecified PLAN: Plan Patient seen and evaluated I have reviewed her previous note on 09/25/2023 from the [facility] and patient was placed on 10-day oral doxycycline with stop date of 10/05/2023. I have also reviewed imaging from 09/25/2023 demonstrating the subtle erosive change at the plantar lateral aspect of the fifth metatarsal which is questionable for osteomyelitis. Discussed her nonpalpable pedal pulses and urged vascular studies to be performed. LEAS were ordered today. Discussed obtaining MRI for further evaluation to rule out osteomyelitis, awaiting result. Cultures were obtained of the wound today. Awaiting results. She was prescribed continued course of oral doxycycline 100 mg twice daily x 14 days (stop date 10/19/2023) Predebridement measurement 1.4 cm x 1.4 cm Ulceration was debrided as noted in the clinical panel above. Postdebridement measurement 1.5 cm x 1.5 cm x 0.3 cm. Ulceration does not probe to bone however is close to the joint capsule of the fifth MTPJ. Ulceration was dressed with Dakin's wet to dry dressing. She was instructed on changing dressing daily. Surgical offloading shoe was given with fifth ray cut out for continued offloading. Discussed continuing to lower blood sugar as sugar today was 200 mg/dL. Last A1c was 9.0%. Discussed proper diabetic diet to aid in reduction of glucose and striving for A1c of under 7% to optimize healing. Patient is understanding of this. Discussed adequate protein to aid in wound healing. Tyson supplementation was also recommended. Discussed signs and symptoms of infection. Discussed that if she notices increasing redness about the ulcerative site that moves to on top of the foot and up the leg, any purulent drainage from the ulcerative site, increasing foul odor, or if she experiences fever greater than 101 degree accompanied by nausea, vomiting, chills that these are signs of a progressing infection and she should report to the ED for IV antibiotics and further evaluation. She is understanding of this today. The following work up and care recommendations were made: Dressing: Dakin's wet to dry dressing. She is recommended to change dressing daily Wash: Soap and water. Pat area dry. Tissue growth optimization: Dakin's Offload: Surgical shoe with fifth ray cut out Vascular: Nonpalpable DP and PT pulses. LEAS were ordered 10/05/2023, awaiting results. Edema: No pedal edema noted Infection: Possible osteomyelitis fifth metatarsal head, awaiting MRI. Rx doxycycline 100 mg twice daily x 14 days. Stop date 10/19/2023 Pain: No pain secondary to diabetic peripheral polyneuropathy Host factors: DM type II with peripheral polyneuropathy, right-sided weakness post CVA in 2019, PVD, tailor's bunion deformity. I answered all the patient's questions. To return to the wound healing center in 1 week or call sooner if the patient has any questions or concerns.
--- NOTE | 2023-10-05 14:15 | WC ---
PHOTO 10/05/23 RIGHT LATERAL PLANTAR
--- NOTE | 2023-10-12 10:32 | PN.PCM_ITS ---
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 Patient states that she has had an ulceration of the plantar lateral aspect of the right foot for roughly now 6 weeks. States that after attempting care for 4 weeks she did seek [facility] where she was placed on oral doxycycline for 10 days. Radiographs were taken at that time demonstrating subtle erosive changes that could not rule out osteomyelitis. She was referred to the wound care center for continued care of her ulceration at that time. Patient was not prescribed offloading shoe and had only been caring for the ulceration with a Band-Aid following the visit at the [facility]. Patient had also been soaking in Epsom salt daily as instructed by [facility]. Patient denies pain about the ulcerative site. Denies trauma as initiating cause. Denies N/V/F/chills. Denies further complaints. Subjective Subjective This is a 63-year-old female who follows up to the wound center for continued care of a plantar lateral fifth metatarsal head ulceration of the right foot. She states she is continue to change the dressing daily with Dakin's. She has finished her previous antibiotic and will obtain the next antibiotic for extended coverage. She states she did go for the MRI last week and is also here today to discuss those results. She states the foot has had a lot less drainage since last week and is feeling less tender. Continues offloading and surgical shoe with fifth ray cut out. Denies constitutional symptoms. Denies further complaints. Objective Data Objective Data Vital Signs: Vital Signs Temp Pulse Resp BP 97 F L 85 18 193/86 H 10/05/23 10:35 10/05/23 10:35 10/05/23 10:35 10/05/23 10:35 Weight: 90.718 kg Body Mass Index (BMI) 34.3 Lab / Micro Data Micro: Microbiology 10/05/23 11:15 Wound - Right Foot Gram Stain - Final 10/05/23 11:15 Wound - Right Foot Wound Culture - Preliminary Providencia rettgeri Streptococcus agalactiae (B) Streptococcus mitis Gram negative carla Pasteurella canis 10/05/23 11:15 Wound - Right Foot Anaerobic Culture - Final Prevotella bivia Fusobacterium nucleatum Physical Exam Const alert, oriented x3 and no apparent distress Constitutional Narrative: Nontoxic-appearing General Appearance: cooperative HEENT normocephalic Eyes Eyes Narrative: Wears glasses General Eye: normal appearance of both eyes Neck General: normal visual inspection Lymph Lymphatic: no lymphadenopathy noted and no lymphedema noted Resp normal respiratory effort Cardio regular rate and regular rhythm Extremity no calf tenderness Extremity Narrative: Right lower extremity: Vascular: DP and PT pulses nonpalpable. Doppler demonstrates monophasic DP and PT. CFT is less than 5 seconds to the digits. Hair growth is absent to digits. Normal temperature gradient is noted. No increased temperature about the ulcerative site. Neurologic: Protective sensation is absent consistent with diabetic peripheral polyneuropathy. Musculoskeletal: Muscle strength 5 of 5 age-appropriate. 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 Decreased range of motion of the first metatarsophalangeal joint without pain or crepitus. Decreased range of motion of the ankle joint in dorsiflexion with the knee extended without pain or crepitus. Dermatologic: There is a full-thickness ulceration noted at the plantar lateral aspect of the fifth metatarsal head tailor's bunion deformity with surrounding hyperkeratosis. Fibrogranular ulcerative bed. Improvement noted with no malodor today and no maceration. Predebridement ulceration measures 1.4 cm x 1.1 cm. Ulceration does not probe to bone. No palpable fluctuance/bogginess. No visible abscess formation. No purulent drainage. No lymphangitic streaking or soft tissue crepitus noted. Skin no rashes or lesions noted, skin turgor normal and no jaundice Neuro moves all extremities Debridement Note Debridement Note Wound debrided: Plantar lateral fifth metatarsal head right foot Laterality: Right Wound Grade/Stage: Mayes stage III Type of Debridement: Excisional debridement Anesthesia Used: 5% Lidocaine Gel Depth: Down to and including healthy tissue and in the subcutaneous layer Percentage of wound debrided: 100 Instrument Used: 5mm curette Tissue Removed: Fibrous, devitalized subcutaneous, biofilm, slough Severity: Fat Layer Exposed Amount of bleeding with debridement: Mild Bleeding Controlled with: Compression and gauze Patient tolerated procedure: Patient tolerated procedure well Post-Debridement Measurements and Additional Note: Post-Debridement Measurements/Treatment - Nurse 1 - General Ulcer Assessment Start: 10/05/23 10:35 Freq: Status: Active Protocol: DEDRICK Activity Type Activity Date Activity User E-sign Co-sign Detail Recorded Client Recorded Date Recorded By Document 10/05/23 10:35 RB [id number] 10/05/23 10:45 RB Edit Result 10/05/23 10:35 RB (1) [id number] 10/05/23 10:50 RB Edit Result 10/05/23 10:35 RB (2) [id number] 10/05/23 10:57 RB (1) Height => 5 ft 4 in Weight => 90.718 kg Weight in Pounds => 200.0 lbs Body Mass Index (BMI) => 34.3 BMI Classification => Obese BSA - Carley => 1.96 (2) Right - Popliteal Doppler => Monophasic - Posterior Tibial Doppler => Monophasic Left - Popliteal Doppler => Monophasic - Posterior Tibial Doppler => Monophasic 10/05/23 10:35 - Today's Visit Information Type of service Initial Visit Arrival Mode Ambulatory Transfer Assistance None Patient Identification Verified (Name & Yes ) Patient Requires Transmission-Based No Precautions Height and Weight Height 5 ft 4 in Weight 90.718 kg Weight in Pounds 200.0 lbs Body Mass Index (BMI) 34.3 BMI Classification Obese BSA - Carley 1.96 Vital Signs Temperature (97.8 F-99.1 F) 97 F L Temperature Source Temporal Pulse Rate (60-100) 85 Pulse Location Monitor Respiratory Rate (12-18) 18 Respiratory rate source Observation Blood Pressure (90/60-120/80) 193/86 H Blood Pressure Mean (mm Hg) 121 Source Monitor Position Semi-Fowlers Blood Pressure Location Left Arm History Since Last Visit- (Skip if this is Patient's initial visit) Have you changed medications since your No last visit? Any new allergies or adverse reactions No Had a fall/change in ADL's that may No increase risk of falls Signs or symptoms of abuse and/or No neglect since last visit Have you been in the hospital since your No last visit? Has dressing in place as prescribed Yes Has compression in place as prescribed No Has offloadiing in place as prescribed No Experienced any changes in pain level or No management Pain Scale: 0-10 Numeric Is Patient Pain Free? No R FOOT -Description Burning,Aching -Intensity 3 -Duration (hours) Acute -Pain Behavior Withdrawal from Touch -Pain Aggravating Factors Exercise/ Activity, Standing -Alleviating Factors/Interventions Medication -Effectiveness of Alleviating Factor/ Moderately Intervention effective Lower Extremity Assessment/ Foot Assessment/ Toe Nail Assessment Right -Popliteal Doppler Monophasic -Posterior Tibial Palpable Yes -Posterior Tibial Doppler Monophasic -Dorsalis Pedis Palpable Yes -Extremity Color Normal -Hair Growth on Legs Yes -Hair Growth on Toes No -Temperature of Extremity Warm -Capillary Refill Greater than 3 Seconds -Dependent Rubor No -Blanched when Elevated No -Lipodermatosclerosis No -Other Deformity No -Prior Foot Ulcer No -Charcot Joint No -Prior Amputation No -Thick No -Discolored No -Deformed No -Improper Length & Hygeine Yes Left -Popliteal Doppler Monophasic -Posterior Tibial Palpable Yes -Posterior Tibial Doppler Monophasic -Dorsalis Pedis Palpable Yes -Extremity Color Normal -Hair Growth on Legs Yes -Hair Growth on Toes No -Temperature of Extremity Warm -Capillary Refill Greater than 3 Seconds -Dependent Rubor No -Blanched when Elevated No -Lipodermatosclerosis No -Other Deformity No -Prior Foot Ulcer No -Charcot Joint No -Prior Amputation No -Thick No -Discolored No -Deformed No -Improper Length & Hygeine Yes Neuropathy Assessment Feet - Top Side and Bottom <Entered> (a) Communication Assessment Preferred language Lithuanian Able to Read Yes Able to Write Yes Communication Tools None Right Hearing Abillity Normal Left Hearing Abillity Normal Visual Assistive Devices Glasses Teaching Assessment Preferences Verbal,Written Barriers to Learning None Readiness To Learn Good Willingness to Engage in Self Management Med Activies Readiness to Engage in Self Management Med Activities Anxiety Level Anxious Cooperation Cooperative Perception Coherent Interest in Health Problem Asks Questions Education Importance Acknowledges Need Does Patient Smoke tobacco or other No substances Smoking Status Never smoker Is Patient Diabetic Yes Functional Assessment Recent Decline in Ability to Perform Denies Any Declines Culture/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 Lithographic Press Operator Apprentice to contact place of jain No Teaching: Wound Center *Welcome to the Wound Center -Person Taught Patient -Teaching Method Discussion, Demonstration -Response to teaching Verbalize Understanding (a) 1 - -THROUGHOUT 2 - + THROUGHTOUT 3 - + THROUGHOUT WC - Nurse 1 - General Ulcer Measurement Start: 10/05/23 10:35 Freq: Status: Active Protocol: Activity Type Activity Date Activity User E-sign Co-sign Detail Recorded Client Recorded Date Recorded By Document 10/05/23 10:35 RB [id number] 10/05/23 10:45 RB 10/05/23 10:35 Wound Center Nurse 1 1. R FOOT PLANTAR LATERAL -Combined with other wound No -Current Size (cm) - Length 1.5 -Current Size (cm) - Width 1.3 -Current Size (cm) - Depth 0.4 -Total Square Cm 1.95 -Photo Taken Yes -Tunneling No -Undermining/Tunneling Yes -Undermining/Tunneling Starts (O'clock 10 ) -Undermining/Tunneling Ends (O'clock) 2 -Maximum Distance (cm) 0.3 -Circular Undermining No -Exudate Amt Medium -Exudate Type Serosanguineous -Wound Margin Thickened -Granulation Amt Medium (34-66%) -Granulation Quality [place] -Slough/Fibrin Yes -Necrosis Amt Medium (34-66%) -Necrotic Tissue Type Adherent Slough -Structure Exposed N/A -Texture (Pema-wound Skin Appearance) Assessed,Callus -Moisture (Pema-wound Skin Appearance) Assessed -Color (Pema-wound Skin Appearance) Assessed -Temperature (Pema-wound Skin No Abnormality Appearance) (Pt Warm) -Tenderness on Palpation (Pema-wound No Skin Appearance) -Ulcer Cleansing Wound Cleanser -Foul Odor after Cleansing No -Anesthetic Used 5% Lidocaine Gel Lower Limb Edema Present Yes Right Calf (cm) 33.5 Right Ankle (cm) 19.5 Left Calf (cm) 35 Left Ankle (cm) 19.5 WC - Nurse 2 - General Ulcer CM Notes Start: 10/05/23 10:35 Freq: Status: Active Protocol: Activity Type Activity Date Activity User E-sign Co-sign Detail Recorded Client Recorded Date Recorded By Document 10/05/23 11:07 [facility] [id number] 10/05/23 11:21 [facility] 10/05/23 11:07 Wound Center Nurse 2 1. R FOOT PLANTAR LATERAL -Time 11:07 -Correct Patient Yes -Correct Side, Site, Position Yes -Correct Procedure Yes -Procedure Performed Yes -Type of Procedure Debridement -Clinical Debridement Subcutaneous -Tissue Removed Subcutaneous -Post Debridement (cm) - Length 1.5 -Post Debridement (cm) - Width 1.5 -Post Debridement (cm) - Depth 0.3 -Total Square (Post) (cm) 2.25 -Area of Debridement (cm) - Length 1.5 -Area of Debridement (cm) - Width 1.5 -Total Square (Area) (cm) 2.25 -Tunneling No -Undermining/Tunneling No -Circular Undermining No -Wound/Ulcer Outcome Not Healed -Ulcer Cleansing Rinsed/ Irrigated with Saline -Foul Odor after Cleansing No -Bioengineered Tissue No -Bleeding Controlled with Pressure -Treatment Response Procedure Tolerated Well -Debridement - Subq, 1st 20sq cm Yes Pain Scale: 0-10 Numeric Is Patient Pain Free? Yes - Nurse 3 - General Ulcer D/C NN Start: 10/05/23 10:35 Freq: Status: Active Protocol: Activity Type Activity Date Activity User E-sign Co-sign Detail Recorded Client Recorded Date Recorded By Document 10/05/23 11:28 S[facility] [id number] 10/05/23 11:29 [facility] 10/05/23 11:28 Wound Care Center Nurse 3 1. R FOOT PLANTAR LATERAL -Ulcer Cleansing Rinsed/ Irrigated with Saline -Primary Dressing Applied Hysept ($) -Primary Dressing Covered/Secured with Dry Gauze & Roll Gauze, Secured with Tape Pain Scale: 0-10 Numeric Is Patient Pain Free? 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: CODE(S): L97.513 - Non-pressure chronic 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 (3) Diabetes mellitus with diabetic polyneuropathy: CODE(S): E11.42 - Type 2 diabetes mellitus with diabetic polyneuropathy (4) Type 2 diabetes mellitus with foot ulcer: CODE(S): E11.621 - Type 2 diabetes mellitus with foot ulcer; L97.509 - Non-pressure chronic ulcer of other part of unspecified foot with unspecified severity (5) Hallux valgus of right foot: CODE(S): M20.11 - Hallux valgus (acquired), right foot (6) Tailor's bunion of right foot: CODE(S): M21.621 - Bunionette of right foot (7) Peripheral arterial disease: CODE(S): I73.9 - Peripheral vascular disease, unspecified PLAN: Plan Patient seen and evaluated I have reviewed her previous note on 09/25/2023 from the [facility] and patient was placed on 10-day oral doxycycline with stop date of 10/05/2023. I have also reviewed imaging from 09/25/2023 demonstrating the subtle erosive change at the plantar lateral aspect of the fifth metatarsal which is questionable for osteomyelitis. Discussed her nonpalpable pedal pulses and urged vascular studies to be performed. LEAS were ordered today. Discussed obtaining MRI for further evaluation to rule out osteomyelitis, awaiting result. Cultures were obtained of the wound. Cultures demonstrate: Providencia rettgeri, Streptococcus agalactiae (B), Streptococcus mitis, gram-negative carla, rare Pasteurella canis, Prevotella bivia, Fusobacterium nucleatum. She was prescribed continued course of oral doxycycline 100 mg twice daily x 14 days (stop date 10/26/2023) and oral Levofloxacin 750 mg daily x 14 days (stop date 10/26/2023) Predebridement measurement 1.4 cm x 1.1 cm Ulceration was debrided as noted in the clinical panel above. Postdebridement measurement 1.5 cm x 1.2 cm x 0.3 cm. Ulceration does not probe to bone, but is granulating in well. Ulceration was dressed with Dakin's wet to dry dressing. She was instructed on changing dressing daily. Surgical offloading shoe was given with fifth ray cut out for continued offloading. Ulceration demonstrates continued reduction in size versus previous visit with overall improvement noted since starting oral antibiotic and utilizing Dakin's for dressings. Discussed her MRI from 10/05/2023 demonstrates focal marrow edema of the lateral aspect of the fifth metatarsal head, series 7 image 13 with overlying soft tissue swelling. Radiology states findings consistent with osteomyelitis. I do feel upon review that there is periostitis secondary to infection at the plantar lateral aspect but complete destruction is not visualized. Overall wound is improving with Dakin's and oral antibiotics. I have discussed options with her of both surgical and conservative. Discussed surgical options include amputation of the fifth metatarsal head and debridement of necrotic tissue. Discussed conservatively to continue the Dakin's with oral antibiotics and clearance for HBO therapy. Patient would like to try to continue the oral antibiotics with the HBO therapy as she does feel she can heal. Process will begin for HBO therapy clearance. Labs were ordered consisting of CBC with differential, Chem 12, CXR, EKG, prealbumin, awaiting results. Patient will also see Dr. Garsia for physical and clearance prior to HBO therapy. LEAS was ordered last week and she has appointment tomorrow for testing. Currently on Oral antiboitics and has completed 2 weeks with additional 2 weeks prescribed. She will also see Dr. Soto, infectious disease for continued antibiotic course. Discussed continuing to lower blood sugar as sugar today was 200 mg/dL. Last A1c was 9.0%. Discussed proper diabetic diet to aid in reduction of glucose and striving for A1c of under 7% to optimize healing. Patient is understanding of this. Discussed adequate protein to aid in wound healing. Tyson supplementation was also recommended. Discussed signs and symptoms of infection. Discussed that if she notices increasing redness about the ulcerative site that moves to on top of the foot and up the leg, any purulent drainage from the ulcerative site, increasing foul odor, or if she experiences fever greater than 101 degree accompanied by nausea, vomiting, chills that these are signs of a progressing infection and she should report to the ED for IV antibiotics and further evaluation. She is understanding of this today. The following work up and care recommendations were made: Dressing: Dakin's wet to dry dressing. She is recommended to change dressing daily Wash: Soap and water. Pat area dry. Tissue growth optimization: Dakin's Offload: Surgical shoe with fifth ray cut out Vascular: Nonpalpable DP and PT pulses. LEAS were ordered 10/05/2023, awaiting results. Edema: No pedal edema noted Infection: Possible osteomyelitis fifth metatarsal head, MRI demonstrates acute osteo of the periphery of the periosteal tissue of the fifth metatarsal head. Rx doxycycline 100 mg twice daily x 14 days, levofloxacin 750 mg daily x 14 days. Stop date 10/26/2023 Pain: No pain secondary to diabetic peripheral polyneuropathy Host factors: DM type II with peripheral polyneuropathy, right-sided weakness post CVA in 2019, PVD, tailor's bunion deformity. I answered all the patient's questions. To return to the wound healing center in 1 week or call sooner if the patient has any questions or concerns.
[2023-10-12 10:43] VITALS: BP 181/77; PULSE 89; RESP 18; TEMP 36.4; BMI 34.3
--- NOTE | 2023-10-13 08:33 | EKG12_ITS ---
Test Reason : WOUND CENTER Blood Pressure : / mmHG Vent. Rate : 083 BPM Atrial Rate : 083 BPM P-R Int : 146 ms QRS Dur : 106 ms QT Int : 404 ms P-R-T Axes : -16 -09 125 degrees QTc Int : 474 ms Normal sinus rhythm Left ventricular hypertrophy with repolarization abnormality Abnormal ECG Confirmed by CHARITO ESCOTO ([id number]), commercial production editor ALLEN VALDOVINOS ([id number]) on 10/14/2023 6:06:01 AM Referred By: Alonso Locke Confirmed By:CHARITO ESCOTO
--- NOTE | 2023-10-13 08:37 | VDLE_ITS ---
Reason For Study: Ulcer Rt Foot RIGHT LEFT GSV is normal. CFV is compressible, spontaneous, phasic, CFV is compressible, spontaneous, phasic, competent, and demonstrates normal competent and demonstrates normal augmentation. augmentation. FV is compressible, spontaneous, phasic, FV is compressible, spontaneous, phasic, competent and demonstrates normal competent and demonstrates normal augmentation. augmentation. POP V is compressible, spontaneous, phasic, POP V is compressible, spontaneous, phasic, competent and demonstrates normal competent and demonstrates normal augmentation. augmentation. T/P Trunk is compressible. T/P Trunk is compressible. PTV is compressible. PTV is compressible. LT PerV is compressible. RT PerV is compressible. SFJ is INCOMPETENT and measures 0.38cm x 0.46 SFJ is competent and measures 0.98cm x 1.03 cm. cm. Lt GSV harvested for CABG. GSV proximal thigh measures 0.21cm x 0.18 cm. SSV proximal calf is competent and measures GSV at knee measures 0.28cm x 0.28 cm. 0.27cm x 0.35 cm. GSV is competent throughout. SSV proximal calf is competent and measures 0.18cm x 0.23 cm. Procedure This is a venous duplex using B-mode, color flow and spectral Doppler. Exam performed in department. A preliminary report was called and/or faxed to Dr. Trimble. VL/Venous Duplex US - Abhilash Extrem Interpretation Summary Deep veins of the bilateral lower extremities are patent and compressible segme ntally. There is no evidence of bilateral lower extremity deep vein thrombosis. The right great sap henous vein appears patent and compressible segmentally. Positive for reflux in the left saphenofemoral junction. Ordering Physician: Pavel Trimble Referring Physician: Fara Bernal Performed By: Janneth Wilcox, SURI, RVT
--- NOTE | 2023-10-13 08:37 | ART_ITS ---
Reason For Study: Ulcer Rt Foot Procedure A bilateral lower extremity continuous wave Doppler with analog waveform analysis,segmental pressures,and ankle brachial indexes without exercise. Prelim given to Heather PINEDA. Left Segmental Pressures Left brachial= 197mmHg. Left thigh = >254mmHg. Left calf = 144mmHg. Left posterior tibial artery = 51mmHg. Left dorsalis pedis artery = 81mmHg. Left digit = 37 mmHg. Right Segmental Pressures Right brachial= 183mmHg. Right thigh = >254mmHg. Right calf = 163mmHg. Right posterior tibial artery = 77mmHg. Right dorsalis pedis artery = 171mmHg. Right digit = 72 mmHg. Indices The right ankle brachial index by the posterior tibial artery is 0.39. The right ankle brachial index by the dorsalis pedis is 0.87. The right digital-brachial index is 0.37. The left ankle brachial index by the posterior tibial artery is 0.26. The left ankle brachial index by the dorsalis pedis is 0.41. The left digital-brachial index is 0.19. VL/Lower Ext Art Exam w/o Exercis Interpretation Summary Right GARCÍA 0.87, moderate arterial insufficiency. Doppler/PVR waveforms reveal i nfrapopliteal disease Left GARCÍA 0.41, severe arterial insufficiency. Doppler/PVR waveforms reveal dist al SFA/popliteal, infrapopliteal disease Ordering Physician: Pavel Trimble Referring Physician: Fara Bernal Performed By: Janneth Wilcox RDCS/RVT
--- NOTE | 2023-10-13 09:05 | RAD_ITS ---
STUDY: X-RAY CHEST REASON FOR EXAM: Female, 63 years old. HYPERBANIC OXYGEN TXS TECHNIQUE: PA and lateral views of the chest. COMPARISON: September 25, 2023 FINDINGS: The lungs are clear and expanded. There is no demonstrated pleural abnormality. Top normal heart size. Sternal cerclage wires and vascular clips are present from a prior sternotomy and coronary artery bypass graft procedure (CABG). Normal mediastinum and tara. Normal visualized pulmonary arteries. There is atherosclerotic calcification of the aortic arch with tortuosity. There are diffuse degenerative changes of the visualized thoracic spine. Normal visualized ribs, clavicles, and shoulders. There is no demonstrated abnormality of the visualized soft tissue structures of the upper abdomen. RAD/Chest PA and Lateral IMPRESSION: Degenerative changes, as described above. No demonstrated acute cardiopulmonary process. Electronically Signed: Ramiro Gardner MD at 10:57 EDT ,
[2023-10-13 09:39] LABS: Absolute Lymphocyte Count 2.62 X10^3/uL (0.83-4.51); Absolute Neutrophil Count 5.2 X10^3/uL (2.0-7.7); Basophil# 0.07 X10^3/uL; Basophil% 0.8 % (0-1); Eosinophil# 0.36 X10^3/uL; Hematocrit 39.3 % (37-47); Hemoglobin 12.6 g/dL (12.0-15.0); Lymphocyte # 2.62 X10^3/ul (0.83-4.51); Lymphocyte % 29.3 % (19-41); Mean Corp Hgb Conc 32.1 g/dL (32-36); Mean Corpuscular Hgb 28.7 pg (27.0-32.0); Mean Corpuscular Volume 89.5 fL (81-99); Mean Platelet Vol. 11.5 fl (6.2-12.0); Monocyte# 0.66 X10^3/uL; Monocyte% 7.4 % (0-10); NRBC Flagged by Analyzer 0 % (0-5); Neutrophil # 5.19 X10^3/uL (2.7-7.7); Neutrophil % 58.2 % (47-70); Platelet Count 189 K/mm3 (150-450); RBC Distribution Width CV 14.3 % (11.6-14.6); RBC Distribution Width SD 46.2 fl (35.1-43.9); Red Blood Count 4.39 M/mm3 (4.2-5.4); White Blood Count 8.9 K/mm3 (4.4-11.0)
[2023-10-13 09:59] LABS: Erythrocyte Sedimentation Rate 16 mm/hr (0-30)
[2023-10-13 10:11] LABS: ALB/GLOB Ratio 0.7 RATIO (0.9-2.4); AST(SGOT) 16 U/L (15-37); Alanine Aminotransfer ALT/SGPT 15 U/L (13-56); Alkaline Phosphatase 83 U/L (45-117); Anion Gap 8 (5-15); BUN 19 mg/dL (7-18); BUN/Creat Ratio 19.7 RATIO (10-20); CRP 9.56 mg/L (0.0-3.0); Calcium,Total 8.9 mg/dL (8.5-10.1); Chloride 101 mmol/L (98-107); Creatinine, Serum 0.96 mg/dL (0.55-1.02); EST Glomerular Filtration Rate 62 mL/min (>60); Est Glom Filt Rate - Afr Amer 75 mL/min (>60); Estimated Creatinine Clearance 64.59 ml/min; Globulin 4.3 g/dL (2.2-4.2); Glucose 145 mg/dL (74-106); Potassium 3.8 mmol/L (3.5-5.1); Protein, Total 7.3 g/dL (6.4-8.2); Sodium Level 139 mmol/L (136-145)
[2023-10-13 10:24] LABS: Hemoglobin A1c 8.2 % (3.8-5.6)
[2023-10-14 09:09] LABS: Prealbumin 18 mg/dL (10-36)
[2023-10-19 09:53] VITALS: BP 162/98; PULSE 90; RESP 16; TEMP 36.1; BMI 34.3
--- NOTE | 2023-10-19 12:24 | PCM.CONHBO ---
Assessment & Plan Assessment/Plan (1) Type 2 diabetes mellitus with foot ulcer: QUALIFIERS: Diabetes mellitus prison insulin use: with intermediate accountant use Qualified Code(s): E11.621 - Type 2 diabetes mellitus with foot ulcer; L97.509 - Non-pressure chronic ulcer of other part of unspecified foot with unspecified severity; Z79.4 - supervisor intermediates (current) use of insulin PLAN: Mayes's stage III (2) Osteomyelitis: QUALIFIERS: Osteomyelitis type: unspecified type Osteomyelitis location: foot Laterality: right Qualified Code(s): M86.9 - Osteomyelitis, unspecified (3) Type 2 diabetes mellitus: QUALIFIERS: Diabetes mellitus intermediate accountant insulin use: with prison use Diabetes mellitus complication status: with hyperglycemia Qualified Code(s): E11.65 - Type 2 diabetes mellitus with hyperglycemia; Z79.4 - supervisor intermediates (current) use of insulin (4) Chronic diastolic (congestive) heart failure: PLAN: Plan History of diabetic foot ulcer with osteomyelitis. Poorly controlled diabetes with frequent episodes of hypoglycemia. Had been following with endocrinology in the past but lately, she states that she has been managed by her primary care physician. Currently on insulin and has continuous glucose monitoring. Recent workup reviewed. Chest x-ray with no acute cardiopulmonary process and EKG with no significant concerns. Left ventricular hypertrophy noted however, chronic history of hypertension. Had an echo in March 2023 suggestive of stage II diastolic heart failure and an ejection fraction of 55%. No significant shortness of breath or seizure episodes reported. Lengthy discussion had with patient about maintaining adequate blood glucose control, she voiced understanding. She otherwise is an appropriate candidate for hyperbaric oxygen therapy given her history of diabetic foot ulcer and osteomyelitis. No absolute contraindication. Risk for barotrauma necessitating ear tubes discussed, she voiced understanding and denies any history of recurrent ear infections or prior tube placement. History of cataract surgery and she denies claustrophobia. Recommend 30 sessions of hyperbaric oxygen therapy at 2 PILO for 90 minutes without a break and consider reevaluation for more sessions if needed. Pre and post blood glucose monitoring per protocol. Her questions were answered and she was advised to let us know if she has any further questions or concerns. Continue follow-up with wound care/podiatry. This note was generated with Booodlation software. It may contain incorrect words, spelling, and punctuation that were not noted in checking the note before signing. History of Present Illness Date of Service: 10/19/23 Chief Complaint: Right foot ulceration History of Wound: Ms. Sawyer is a 63-year-old currently being seen at the wound center for right foot ulcer. History of diabetes mellitus type 2 and following recent MRI, diagnosed with osteomyelitis. Per documentation, Mayes stage III. Due to history of diabetic foot wound and osteomyelitis, she has been recommended for hyperbaric oxygen therapy. Comorbidities include coronary artery disease status post CABG. No known history of recurrent ear infections, COPD or tobacco use. She also denies any seizure episodes. She does however report variable blood glucose readings with frequent low blood glucose readings. Currently on insulin. Has continuous glucose monitoring. Recently had an EKG and a chest x-ray done with no acute concerns. She has no acute concerns at this time. [facility] Medical History (Updated 10/19/23 @ 12:[address] Dino Garsia MD) Osteomyelitis Left rotator cuff tear Impingement of left shoulder Left shoulder pain PAF (paroxysmal atrial fibrillation) Diabetic retinopathy associated with type 2 diabetes mellitus Obesity Skin lesion of left lower extremity Dysarthria Dyspnea Chronic diastolic (congestive) heart failure MARLEN (obstructive sleep apnea) Slurred speech CVA (cerebral vascular accident) (12/14/18) Essential (primary) hypertension Type 2 diabetes mellitus Incontinent of urine neck/back pain Limb weakness Anemia Shoulder pain Arthritis History of deep venous thrombosis (DVT) of distal vein of left lower extremity (04/13/13) 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) Hyperlipidemia History of non-ST elevation myocardial infarction (NSTEMI) (04/08/13) History of non-Hodgkin's lymphoma (2012) Polycystic ovaries IBS (irritable bowel syndrome) Home Medications ?Medication ?Instructions ?Recorded ?Last Taken ?Type cholecalciferol (vitamin D3) 50 2,000 units PO DAILY vitamin 05/20/19 04/05/23 10:00 History mcg (2,000 unit) capsule albuterol sulfate 90 mcg/actuation 2 puff inhalation Q6H PRN Sob &/Or 08/14/19 04/05/23 10:00 History aerosol inhaler (Proventil HFA) Wheezing metformin 1,000 mg tablet 1,000 mg PO BID type II diabetes 04/02/20 04/05/23 10:00 History pen needle, diabetic 31 gauge x #1,200 ea 04/02/20 Unknown History 5/16 losartan 50 mg tablet 50 mg PO DAILY bp #90 tabs 07/26/21 04/05/23 10:00 Rx flash glucose sensor (FreeStyle #1 ea 10/19/21 Unknown History Moses 14 Day Sensor kit) insulin degludec 100 unit/mL (3 50 unit subcut DAILY type II 10/19/21 04/05/23 10:00 History mL) subcutaneous pen (Tresiba diabetes FlexTouch U-100 insulin) insulin aspart U-100 100 unit/mL 30 unit subcut .COMPLEX type II 08/23/22 04/05/23 13:30 History (3 mL) subcutaneous pen diabetes insulin aspart U-100 100 unit/mL 40 unit subcut BREAKFAST DM II 08/23/22 04/05/23 10:00 History (3 mL) subcutaneous pen metoprolol succinate 50 mg 50 mg PO DAILY #90 tabs 08/23/22 Unknown Rx tablet,extended release 24 hr amlodipine 10 mg tablet 10 mg PO DAILY #30 tabs 04/07/23 Unknown Rx apixaban 5 mg tablet (Eliquis) See Rx Instructions .Route 04/10/23 Unknown Rx .COMPLEX #60 TABLETS furosemide 40 mg tablet See Rx Instructions .Route 04/10/23 Unknown Rx .COMPLEX #90 tabs doxycycline monohydrate 100 mg 100 mg PO BID #20 caps 09/25/23 Unknown Rx capsule atorvastatin 40 mg tablet 40 mg PO DAILY #90 TABLETS 10/06/23 Unknown Rx Allergy/AdvReac Type Severity Reaction Status Date / Time Penicillins Allergy Severe Rash Verified 09/25/23 09:52 grass pollen Allergy Intermediate Other Verified 09/25/23 09:52 tree and shrub pollen Allergy Intermediate Other Verified 09/25/23 09:52 lisinopril AdvReac Intermediate Other Verified 09/25/23 09:52 hydrocodone bitartrate (From AdvReac Mild Unknown Verified 09/25/23 09:52 Vicodin) losartan AdvReac Heart Burn Verified 09/25/23 09:52 Family History Father , 65 Diabetes Hypertension cabg Mother , Age 65 Hypertension Renal failure Sister Cancer Sister Diabetes Cardiomegaly Surgical History History of left heart catheterization (07/26/18) H/O coronary artery bypass surgery (04/10/13) Atherosclerotic heart disease of [place] coronary artery without angina pectoris Social History Smoking Status: Never smoker alcohol intake: never substance use type: does not use caffeine: Yes Type: coffee Number of servings: 2 ROS Constitutional Constitutional: Denies daytime sleepiness, difficulty sleeping, fatigue, frequent falls, headache(s), increased appetite or lethargy Eyes Eyes: Denies burning, change in eye color, change in vision, discharge from eye(s), double vision, excessive blinking or exophthalmos ENT HEENT: Denies disequillibrium, dizziness, hearing loss, hoarseness, lip swelling or mouth pain Cardiovascular Cardiovascular: Denies claudication, clubbing, cold extremities, cyanosis, diaphoresis, dizziness, dyspnea at rest or erythema on extremities Respiratory/Chest Respiratory/Chest: Denies difficulty clearing secretions, dry cough, excessive phlegm production, hemoptysis, hoarseness or inability to speak Gastrointestinal Gastrointestinal: Denies change in bowel habits, change in stool character, chewing difficulty, coffee ground emesis, constipation or excessive flatus Genitourinary Genitourinary: Denies abdominal discomfort, difficulty urinating, flank pain, hematuria or oliguria Musculoskeletal Musculoskeletal: Denies atrophy, muscle cramps, muscle spasms, muscle weakness, numbness or tremors Integumentary Integumentary: Reports wounds; Denies furuncle, hirsutism, jaundice or pruritus Neurologic Neurologic: Denies behavior changes, burning sensations, confusion, convulsions, disequilibrium, lack of coordination or memory loss Psychiatric Psychiatric: Denies behavioral changes, cognitive impairment, confusion, hallucinations, irritability, memory loss, tactile hallucinations or visual hallucinations Endocrine Endocrinology: Denies deepening of the voice, excessive sweating, heat intolerance, increase in ring/shoe/hat size or palpitations Hematologic/Lymphatic Hematologic/Lymphatic: Denies anemia, easy bruising or lymphadenopathy Allergic/Immunologic Allergic/Immunologic: Denies lip swelling, throat swelling, tongue swelling, hives, urticaria, eczemia or wheezing Physical Exam Physical Exam Const alert, oriented x3 and no apparent distress General Appearance: cooperative and comfortable HEENT normocephalic and head/scalp atraumatic Tympanic Membrane: TM's normal bilaterally Eyes EOMs intact bilaterally Neck full ROM and supple General: normal visual inspection Resp normal respiratory effort and normal air movement Effort and Inspection: able to speak in complete sentences Cardio regular rate, regular rhythm, S1 normal heart sound and S2 normal heart sound GI soft to palpation, non-tender and non-distended Extremity no clubbing, cyanosis or edema Skin Wounds: wounds noted Neuro oriented x3, CN's II-XII intact bilaterally, moves all extremities and no focal motor deficits Psych mental status grossly normal, thought process normal, cooperative, affect normal and speech normal Nursing Assessment and Debridement Post-Debridement Measurements and Additional Note: Post-Debridement Measurements/Treatment WC - Nurse 1 - General Ulcer Assessment Start: 10/05/23 10:35 Freq: Status: Active Protocol: DEDRICK Activity Type Activity Date Activity User E-sign Co-sign Detail Recorded Client Recorded Date Recorded By Document 10/19/23 09:53 GABRIEL [id number] 10/19/23 10:09 10/19/23 09:53 - Today's Visit Information Type of service Follow-up Visit (Physician/PROPERTY MANAGEMENT SPECIALIST ),HBO Consult Arrival Mode Ambulatory Patient Identification Verified (Name & Yes ) Patient Requires Transmission-Based No Precautions Safety Precautions Fall Prevention Finger Stick Blood Sugar(mg/dl) (if 127 indicated): Blood Sugar Stated by Patient Height and Weight Body Mass Index (BMI) 34.3 BMI Classification Obese Vital Signs Temperature (97.8 F-99.1 F) 97 F L Temperature Source Temporal Pulse Rate (60-100 beats/min) 90 Pulse Location Monitor Respiratory Rate (12-18 breaths/min) 16 Respiratory rate source Observation Blood Pressure (90/60-120/80 mm Hg) 162/98 H Blood Pressure Mean (mm Hg) 119 Source Monitor Position Sitting Blood Pressure Location Left Arm History Since Last Visit- (Skip if this is Patient's initial visit) Have you changed medications since your No last visit? Any new allergies or adverse reactions No Had a fall/change in ADL's that may No increase risk of falls Signs or symptoms of abuse and/or No neglect since last visit Have you been in the hospital since your No last visit? Has dressing in place as prescribed Yes Has compression in place as prescribed N/A Has offloadiing in place as prescribed Yes Pain Scale: 0-10 Numeric Is Patient Pain Free? Yes - Nurse 1 - General Ulcer Measurement Start: 10/05/23 10:35 Freq: Status: Active Protocol: Activity Type Activity Date Activity User E-sign Co-sign Detail Recorded Client Recorded Date Recorded By Document 10/19/23 09:53 [id number] 10/19/23 10:09 10/19/23 09:53 Wound Center Nurse 1 1. R FOOT PLANTAR LATERAL -Current Size (cm) - Length 1.5 -Current Size (cm) - Width 1 -Current Size (cm) - Depth 0.3 -Total Square Cm 1.5 -Date of Last Picture (Recall this 10/19/23 field) -Photo Taken Yes -Exudate Amt Small -Exudate Type Serosanguineous -Wound Margin Thickened -Granulation Amt Large (67-100%) -Granulation Quality [place] -Slough/Fibrin Yes -Necrosis Amt Small (1-33%) -Necrotic Tissue Type Adherent Slough -Structure Exposed N/A -Texture (Pema-wound Skin Appearance) No Abnormality -Moisture (Pema-wound Skin Appearance) No Abnormality -Color (Pema-wound Skin Appearance) No Abnormality -Temperature (Pema-wound Skin No Abnormality Appearance) (Pt Warm) -Tenderness on Palpation (Pema-wound No Skin Appearance) -Ulcer Cleansing Rinsed/ Irrigated with Saline -Anesthetic Used 5% Lidocaine Gel - Nurse 2 - General Ulcer CM Notes Start: 10/05/23 10:35 Freq: Status: Active Protocol: Activity Type Activity Date Activity User E-sign Co-sign Detail Recorded Client Recorded Date Recorded By Document 10/19/23 11:21 [facility] [id number] 10/19/23 11:26 [facility] 10/19/23 11:21 Wound Center Nurse 2 -Time 11:21 -Correct Patient Yes -Correct Side, Site, Position Yes -Correct Procedure Yes -Procedure Performed Yes -Type of Procedure Debridement -Clinical Debridement Subcutaneous -Tissue Removed Subcutaneous -Post Debridement (cm) - Length 1.5 -Post Debridement (cm) - Width 1 -Post Debridement (cm) - Depth 0.2 -Total Square (Post) (cm) 1.5 -Area of Debridement (cm) - Length 1.5 -Area of Debridement (cm) - Width 1 -Total Square (Area) (cm) 1.5 -Tunneling No -Undermining/Tunneling No -Circular Undermining No -Wound/Ulcer Outcome Not Healed -Ulcer Cleansing Rinsed/ Irrigated with Saline -Foul Odor after Cleansing No -Bioengineered Tissue No -Bleeding Controlled with Pressure -Treatment Response Procedure Tolerated Well -Offloading Yes -Type of Offloading Surgical Shoe -Debridement - Subq, 1st 20sq cm Yes Pain Scale: 0-10 Numeric Is Patient Pain Free? Yes WC - Nurse 3 - General Ulcer D/C NN Start: 10/05/23 10:35 Freq: Status: Active Protocol: Activity Type Activity Date Activity User E-sign Co-sign Detail Recorded Client Recorded Date Recorded By Document 10/19/23 11:37 DL [id number] 10/19/23 11:38 DL 10/19/23 11:37 Wound Care Center Nurse 3 1. R FOOT PLANTAR LATERAL -Ulcer Cleansing Rinsed/ Irrigated with Saline -Foul Odor after Cleansing No -Other Dressing dakins -Primary Dressing Covered/Secured with Dry Gauze & Roll Gauze, Secured with Tape Treatment Response Procedure Tolerated Well Pain Scale: 0-10 Numeric Is Patient Pain Free? Yes WC - Visit Discharge Discharge Condition Stable Ambulatory Status Ambulatory Transportation Private Auto Lab / Micro Data 10/13/23 09:22 10/13/23 09:22 Charges/Coding Visit Charges Office Visits / Consults: 35620 OV L4 Est 30min
--- NOTE | 2023-10-19 13:20 | PN.PCM_ITS ---
History of Present Illness Date of Service: 10/19/23 Chief Complaint: Right foot ulceration History of Wound: Ms. Sawyer is a 63-year-old currently being seen at the wound center for right foot ulcer. History of diabetes mellitus type 2 and following recent MRI, diagnosed with osteomyelitis. Per documentation, Mayes stage III. Due to history of diabetic foot wound and osteomyelitis, she has been recommended for hyperbaric oxygen therapy. Comorbidities include coronary artery disease status post CABG. No known history of recurrent ear infections, COPD or tobacco use. She also denies any seizure episodes. She does however report variable blood glucose readings with frequent low blood glucose readings. Currently on insulin. Has continuous glucose monitoring. Recently had an EKG and a chest x-ray done with no acute concerns. She has no acute concerns at this time. Subjective Subjective This is a 63-year-old female who follows up to the wound center for continued care of a plantar lateral fifth metatarsal head ulceration of the right foot. She states she is continue to change the dressing daily with Dakin's. She continues oral antibiotic as instructed. States she did see Dr. Garsia for HBO clearance this morning. Continues offloading and surgical shoe with fifth ray cut out. Denies constitutional symptoms. Denies further complaints. Objective Data Objective Data Vital Signs: Vital Signs Temp Pulse Resp BP 97 F L 90 16 162/98 H 10/19/23 09:53 10/19/23 09:53 10/19/23 09:53 10/19/23 09:53 Weight: 90.718 kg Body Mass Index (BMI) 34.3 Lab / Micro Data 10/13/23 09:22 10/13/23 09:22 Micro: Microbiology 10/05/23 11:15 Wound - Right Foot Gram Stain - Final 10/05/23 11:15 Wound - Right Foot Wound Culture - Final Providencia rettgeri Streptococcus agalactiae (B) Streptococcus mitis Eikenella corrodens Pasteurella canis 10/05/23 11:15 Wound - Right Foot Anaerobic Culture - Final Prevotella bivia Fusobacterium nucleatum Physical Exam Const alert, oriented x3 and no apparent distress General Appearance: cooperative HEENT normocephalic Eyes General Eye: normal appearance of both eyes Neck General: normal visual inspection Lymph Lymphatic: no lymphadenopathy noted and no lymphedema noted Resp normal respiratory effort Cardio regular rate and regular rhythm Extremity normal capillary refill, no joint enlargement, no calf tenderness and no pedal edema Extremity Narrative: Right lower extremity: Vascular: DP and PT pulses nonpalpable. Doppler demonstrates monophasic DP and PT. CFT is less than 5 seconds to the digits. Hair growth is absent to digits. Normal temperature gradient is noted. No increased temperature about the ulcerative site. Neurologic: Protective sensation is absent consistent with diabetic peripheral polyneuropathy. Musculoskeletal: Muscle strength 5 of 5 age-appropriate. 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 Decreased range of motion of the first metatarsophalangeal joint without pain or crepitus. Decreased range of motion of the ankle joint in dorsiflexion with the knee extended without pain or crepitus. Dermatologic: There is a full-thickness ulceration noted at the plantar lateral aspect of the fifth metatarsal head tailor's bunion deformity with surrounding hyperkeratosis. Fibrogranular ulcerative bed. Improvement noted with no malodor today and no maceration. Predebridement ulceration measures 1.4 cm x 0.9 cm. Ulceration does not probe to bone. No palpable fluctuance/bogginess. No visible abscess formation. No purulent drainage. No lymphangitic streaking or soft tissue crepitus noted. Skin no rashes or lesions noted, skin turgor normal and no jaundice Neuro moves all extremities Debridement Note Debridement Note Wound debrided: Subfifth metatarsal head right foot Laterality: Right Wound Grade/Stage: Mayes stage III Type of Debridement: Excisional debridement Anesthesia Used: 5% Lidocaine Gel Depth: Down to and including healthy tissue and in the subcutaneous layer Percentage of wound debrided: 100 Instrument Used: 5mm curette Tissue Removed: Fibrous, devitalized subcutaneous, biofilm, slough Severity: Fat Layer Exposed Amount of bleeding with debridement: Mild Bleeding Controlled with: Compression and gauze Patient tolerated procedure: Patient tolerated procedure well Post-Debridement Measurements and Additional Note: Post-Debridement Measurements/Treatment WC - Nurse 1 - General Ulcer Assessment Start: 10/05/23 10:35 Freq: Status: Active Protocol: ENID.LOWEXT Activity Type Activity Date Activity User E-sign Co-sign Detail Recorded Client Recorded Date Recorded By Document 10/05/23 10:35 RB [id number] 10/05/23 10:45 RB Edit Result 10/05/23 10:35 RB (1) [id number] 10/05/23 10:50 RB Edit Result 10/05/23 10:35 RB (2) [id number] 10/05/23 10:57 RB Document 10/12/23 10:43 RB [id number] 10/12/23 10:45 RB Document 10/19/23 09:53 CP [id number] 10/19/23 10:09 CP (1) Height => 5 ft 4 in Weight => 90.718 kg Weight in Pounds => 200.0 lbs Body Mass Index (BMI) => 34.3 BMI Classification => Obese BSA - Carley => 1.96 (2) Right - Popliteal Doppler => Monophasic - Posterior Tibial Doppler => Monophasic Left - Popliteal Doppler => Monophasic - Posterior Tibial Doppler => Monophasic 10/05/23 10/12/23 10/19/23 10:35 10:43 09:53 WC - Today's Visit Information Type of service Initial Visit Follow-up Visit Follow-up Visit (Physician/NATIONAL [employer]AN [employer]NER OPERATOR (Physician/NATIONAL VAN OWNER OPERATOR ) ),HBO Consult Arrival Mode Ambulatory Ambulatory Ambulatory Transfer Assistance None None Patient Identification Verified (Name & Yes Yes Yes ) Patient Requires Transmission-Based No No No Precautions Safety Precautions Fall Prevention Finger Stick Blood Sugar(mg/dl) (if 127 indicated): Blood Sugar Stated by Patient Height and Weight Height 5 ft 4 in Weight 90.718 kg Weight in Pounds 200.0 lbs Body Mass Index (BMI) 34.3 34.3 34.3 BMI Classification Obese Obese Obese BSA - Carley 1.96 Vital Signs Temperature (97.8 F-99.1 F) 97 F L 97.5 F L 97 F L Temperature Source Temporal Temporal Temporal Pulse Rate (60-100) 85 89 90 Pulse Location Monitor Monitor Monitor Respiratory Rate (12-18) 18 18 16 Respiratory rate source Observation Observation Observation Blood Pressure (90/60-120/80) 193/86 H 181/77 H 162/98 H Blood Pressure Mean (mm Hg) 121 111 119 Source Monitor Monitor Monitor Position Semi-Fowlers Semi-Fowlers Sitting Blood Pressure Location Left Arm Left Arm Left Arm History Since Last Visit- (Skip if this is Patient's initial visit) Have you changed medications since your No No No last visit? Any new allergies or adverse reactions No No No Had a fall/change in ADL's that may No No No increase risk of falls Signs or symptoms of abuse and/or No No No neglect since last visit Have you been in the hospital since your No No No last visit? Has dressing in place as prescribed Yes Yes Yes Has compression in place as prescribed No No N/A Has offloadiing in place as prescribed No Yes Yes Experienced any changes in pain level or No No management Right Footwear Surgical Shoe with pressure relief insole Pain Scale: 0-10 Numeric Is Patient Pain Free? No Yes Yes R FOOT -Description Burning,Aching -Intensity 3 -Duration (hours) Acute -Pain Behavior Withdrawal from Touch -Pain Aggravating Factors Exercise/ Activity, Standing -Alleviating Factors/Interventions Medication -Effectiveness of Alleviating Factor/ Moderately Intervention effective Lower Extremity Assessment/ Foot Assessment/ Toe Nail Assessment Right -Popliteal Doppler Monophasic -Posterior Tibial Palpable Yes -Posterior Tibial Doppler Monophasic -Dorsalis Pedis Palpable Yes -Extremity Color Normal -Hair Growth on Legs Yes -Hair Growth on Toes No -Temperature of Extremity Warm -Capillary Refill Greater than 3 Seconds -Dependent Rubor No -Blanched when Elevated No -Lipodermatosclerosis No -Other Deformity No -Prior Foot Ulcer No -Charcot Joint No -Prior Amputation No -Thick No -Discolored No -Deformed No -Improper Length & Hygeine Yes Left -Popliteal Doppler Monophasic -Posterior Tibial Palpable Yes -Posterior Tibial Doppler Monophasic -Dorsalis Pedis Palpable Yes -Extremity Color Normal -Hair Growth on Legs Yes -Hair Growth on Toes No -Temperature of Extremity Warm -Capillary Refill Greater than 3 Seconds -Dependent Rubor No -Blanched when Elevated No -Lipodermatosclerosis No -Other Deformity No -Prior Foot Ulcer No -Charcot Joint No -Prior Amputation No -Thick No -Discolored No -Deformed No -Improper Length & Hygeine Yes Neuropathy Assessment Feet - Top Side and Bottom <Entered> (a) Communication Assessment Preferred language [place] Able to Read Yes Able to Write Yes Communication Tools None Right Hearing Abillity Normal Left Hearing Abillity Normal Visual Assistive Devices Glasses Teaching Assessment Preferences Verbal,Written Barriers to Learning None Readiness To Learn Good Willingness to Engage in Self Management Med Activies Readiness to Engage in Self Management Med Activities Anxiety Level Anxious Cooperation Cooperative Perception Coherent Interest in Health Problem Asks Questions Education Importance Acknowledges Need Does Patient Smoke tobacco or other No substances Smoking Status Never smoker Is Patient Diabetic Yes Functional Assessment Recent Decline in Ability to Perform Denies Any Declines Culture/Samaritan/Manufacturing Teacher Cultural/Samaritan Needs that may affect No Treatment Plan Would you allow our hospital u.s. commissioner to No meet you for the purpose of spiritual/ emotional support? Manufacturing Teacher to contact place of judaism No Teaching: Wound Center *Welcome to the Wound Center -Person Taught Patient -Teaching Method Discussion, Demonstration -Response to teaching Verbalize Understanding (a) 1 - -THROUGHOUT 2 - + THROUGHTOUT 3 - + THROUGHOUT WC - Nurse 1 - General Ulcer Measurement Start: 10/05/23 10:35 Freq: Status: Active Protocol: Activity Type Activity Date Activity User E-sign Co-sign Detail Recorded Client Recorded Date Recorded By Document 10/05/23 10:35 RB [id number] 10/05/23 10:45 RB Document 10/12/23 10:43 RB [id number] 10/12/23 10:45 RB Document 10/19/23 09:53 CP [id number] 10/19/23 10:09 CP 10/05/23 10/12/23 10/19/23 10:35 10:43 09:53 Wound Center Nurse 1 1. R FOOT PLANTAR LATERAL -Combined with other wound No No -Current Size (cm) - Length 1.5 1.2 1.5 -Current Size (cm) - Width 1.3 1 1 -Current Size (cm) - Depth 0.4 0.2 0.3 -Total Square Cm 1.95 1.2 1.5 -Date of Last Picture (Recall this 10/19/23 field) -Photo Taken Yes Yes Yes -Tunneling No No -Undermining/Tunneling Yes No -Undermining/Tunneling Starts (O'clock 10 ) -Undermining/Tunneling Ends (O'clock) 2 -Maximum Distance (cm) 0.3 -Circular Undermining No No -Exudate Amt Medium Medium Small -Exudate Type Serosanguineous Serosanguineous Serosanguineous -Wound Margin Thickened Thickened Thickened -Granulation Amt Medium (34-66%) Medium (34-66%) Large (67-100%) -Granulation Quality [place] -Slough/Fibrin Yes Yes Yes -Necrosis Amt Medium (34-66%) Medium (34-66%) Small (1-33%) -Necrotic Tissue Type Adherent Slough Adherent Slough Adherent Slough -Structure Exposed N/A N/A N/A -Texture (Pema-wound Skin Appearance) Assessed,Callus Callus No Abnormality -Moisture (Pema-wound Skin Appearance) Assessed Assessed No Abnormality -Color (Pema-wound Skin Appearance) Assessed Assessed No Abnormality -Temperature (Pema-wound Skin No Abnormality No Abnormality No Abnormality Appearance) (Pt Warm) (Pt Warm) (Pt Warm) -Tenderness on Palpation (Pema-wound No No No Skin Appearance) -Ulcer Cleansing Wound Cleanser Wound Cleanser Rinsed/ Irrigated with Saline -Foul Odor after Cleansing No No -Anesthetic Used 5% Lidocaine 5% Lidocaine 5% Lidocaine Gel Gel Gel Lower Limb Edema Present Yes Right Calf (cm) 33.5 Right Ankle (cm) 19.5 Left Calf (cm) 35 Left Ankle (cm) 19.5 WC - Nurse 2 - General Ulcer CM Notes Start: 10/05/23 10:35 Freq: Status: Active Protocol: Activity Type Activity Date Activity User E-sign Co-sign Detail Recorded Client Recorded Date Recorded By Document 10/05/23 11:07 [facility] [id number] 10/05/23 11:21 [facility] Document 10/12/23 11:45 [facility] [id number] 10/12/23 12:11 [employer] Document 10/19/23 11:21 BM [id number] 10/19/23 11:26 BM 10/05/23 10/12/23 10/19/23 11:07 11:45 11:21 Wound Center Nurse 2 1. R FOOT PLANTAR LATERAL -Time 11:07 11:46 11:21 -Correct Patient Yes Yes Yes -Correct Side, Site, Position Yes Yes Yes -Correct Procedure Yes Yes Yes -Procedure Performed Yes Yes Yes -Type of Procedure Debridement Debridement Debridement -Clinical Debridement Subcutaneous Subcutaneous Subcutaneous -Tissue Removed Subcutaneous Subcutaneous Subcutaneous -Post Debridement (cm) - Length 1.5 1.5 1.5 -Post Debridement (cm) - Width 1.5 1.2 1 -Post Debridement (cm) - Depth 0.3 0.3 0.2 -Total Square (Post) (cm) 2.25 1.80 1.5 -Area of Debridement (cm) - Length 1.5 1.5 1.5 -Area of Debridement (cm) - Width 1.5 1.2 1 -Total Square (Area) (cm) 2.25 1.80 1.5 -Tunneling No No No -Undermining/Tunneling No No No -Circular Undermining No No No -Wound/Ulcer Outcome Not Healed Not Healed Not Healed -Ulcer Cleansing Rinsed/ Rinsed/ Irrigated with Irrigated with Saline Saline -Foul Odor after Cleansing No No -Bioengineered Tissue No No -Bleeding Controlled with Pressure Pressure Pressure -Treatment Response Procedure Procedure Tolerated Well Tolerated Well -Offloading Yes -Type of Offloading Surgical Shoe -Debridement - Subq, 1st 20sq cm Yes Yes Yes Pain Scale: 0-10 Numeric Is Patient Pain Free? Yes Yes Yes - Nurse 3 - General Ulcer D/C NN Start: 10/05/23 10:35 Freq: Status: Active Protocol: Activity Type Activity Date Activity User E-sign Co-sign Detail Recorded Client Recorded Date Recorded By Document 10/05/23 11:28 KW [id number] 10/05/23 11:29 KW Document 10/12/23 12:21 RB [id number] 10/12/23 12:22 RB Document 10/19/23 11:37 DL [id number] 10/19/23 11:38 DL 10/05/23 10/12/23 10/19/23 11:28 12:21 11:37 Wound Care Center Nurse 3 1. R FOOT PLANTAR LATERAL -Ulcer Cleansing Rinsed/ Rinsed/ Rinsed/ Irrigated with Irrigated with Irrigated with Saline Saline Saline -Foul Odor after Cleansing No -Primary Dressing Applied Hysept ($) -Other Dressing dakins dakins moistened gauze -Primary Dressing Covered/Secured with Dry Gauze & Dry Gauze,Dry Dry Gauze & Roll Gauze, Gauze & Roll Roll Gauze, Secured with Gauze,Secured Secured with Tape with Tape Tape Treatment Response Procedure Procedure Tolerated Well Tolerated Well Pain Scale: 0-10 Numeric Is Patient Pain Free? Yes Yes Yes WC - Visit Discharge Discharge Condition Stable Stable Stable Ambulatory Status Ambulatory Ambulatory Ambulatory Transportation Private Auto Private Auto Private Auto Medication Reconcilliation completed & No No provided to patient/care provider Clinical Summary of Care Provided Yes Yes Assessment/Plan Assessment/Plan (1) Non-pressure chronic 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: CODE(S): L97.513 - Non-pressure chronic 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 (2) Osteomyelitis: CODE(S): M86.9 - Osteomyelitis, unspecified QUALIFIERS: Osteomyelitis type: unspecified type Osteomyelitis location: foot Laterality: right Qualified Code(s): M86.9 - Osteomyelitis, unspecified (3) Diabetes mellitus with diabetic polyneuropathy: CODE(S): E11.42 - Type 2 diabetes mellitus with diabetic polyneuropathy (4) Type 2 diabetes mellitus with foot ulcer: CODE(S): E11.621 - Type 2 diabetes mellitus with foot ulcer; L97.509 - Non-pressure chronic ulcer of other part of unspecified foot with unspecified severity QUALIFIERS: Diabetes mellitus fdc insulin use: with fdc use Qualified Code(s): E11.621 - Type 2 diabetes mellitus with foot ulcer; L97.509 - Non-pressure chronic ulcer of other part of unspecified foot with unspecified severity; Z79.4 - nursing home (current) use of insulin (5) Hallux valgus of right foot: CODE(S): M20.11 - Hallux valgus (acquired), right foot (6) Tailor's bunion of right foot: CODE(S): M21.621 - Bunionette of right foot (7) Peripheral arterial disease: CODE(S): I73.9 - Peripheral vascular disease, unspecified PLAN: Plan Patient seen and evaluated I have reviewed her previous note on 09/25/2023 from the [facility] and patient was placed on 10-day oral doxycycline with stop date of 10/05/2023. I have also reviewed imaging from 09/25/2023 demonstrating the subtle erosive change at the plantar lateral aspect of the fifth metatarsal which is questionable for osteomyelitis. Discussed her nonpalpable pedal pulses and urged vascular studies to be performed. LEAS were ordered today. Discussed obtaining MRI for further evaluation to rule out osteomyelitis, awaiting result. Cultures were obtained of the wound. Cultures demonstrate: Providencia rettgeri, Streptococcus agalactiae (B), Streptococcus mitis, gram-negative carla, rare Pasteurella canis, Prevotella bivia, Fusobacterium nucleatum. She was prescribed continued course of oral doxycycline 100 mg twice daily x 14 days (stop date 10/26/2023) and oral Levofloxacin 750 mg daily x 14 days (stop date 10/26/2023) Predebridement measurement 1.4 cm x 0.9 cm Ulceration was debrided as noted in the clinical panel above. Postdebridement measurement 1.5 cm x 1.0 cm x 0.3 cm. Ulceration does not probe to bone, but is granulating in well. Ulceration was dressed with Dakin's wet to dry dressing. She was instructed on changing dressing daily. Surgical offloading shoe was given with fifth ray cut out for continued offloading. Ulceration demonstrates continued reduction in size versus previous visit with overall improvement noted since starting oral antibiotic and utilizing Dakin's for dressings. Discussed her MRI from 10/05/2023 demonstrates focal marrow edema of the lateral aspect of the fifth metatarsal head, series 7 image 13 with overlying soft tissue swelling. Radiology states findings consistent with osteomyelitis. I do feel upon review that there is periostitis secondary to infection at the plantar lateral aspect but complete destruction is not visualized. Overall wound is improving with Dakin's and oral antibiotics. I have discussed options with her of both surgical and conservative. Discussed surgical options include amputation of the fifth metatarsal head and debridement of necrotic tissue. Discussed conservatively to continue the Dakin's with oral antibiotics and clearance for HBO therapy. Patient would like to try to continue the oral antibiotics with the HBO therapy as she does feel she can heal. Process will begin for HBO therapy clearance. Labs were ordered consisting of CBC with differential, Chem 12, CXR, EKG, prealbumin. Patient will also see Dr. Garsia for physical and clearance prior to HBO therapy. LEAS was ordered. Currently on Oral antiboitics and has completed 2 weeks with additional 2 weeks prescribed. She will also see Dr. Soto, infectious disease for continued antibiotic course. I reviewed her labs for HBO clearance performed 10/13/23. WBC 8.9; Hgb 12.6; Hct 39.3; AST 16; ALT 15; CRP 9.56; albumin 3.0; prealbumin 18; sodium 139; potassium 3.8; chloride 101; CO2 30.0; BUN 19;Cr 0.96; glucose 145; HgbA1c 8.2%. She did see Dr. Garsia for clearance and has been cleared for HBO dives. Venous studies 10/13/23: Negative for acute DVT. Deep veins bilateral lower extremities patent and compressible segmentally. Positive reflux left saphenofemoral junction. LEAS: Right GARCÍA 0.87, moderate arterial insufficiency; Doppler and PVR waveforms demonstrate infrapopliteal disease. Left GARCÍA 0.41, severe arterial insufficiency. Doppler/PVR waveforms reveal distal SFA/popliteal and infrapopliteal disease. Patient will continue follow-up with Dr. Figueroa, vascular surgery. Discussed continuing to lower blood sugar as sugar today was 200 mg/dL. Last A1c was 9.0%, recently down to 8.2%. She was encouraged for continued reduction. Discussed proper diabetic diet to aid in reduction of glucose and striving for A1c of under 7% to optimize healing. Patient is understanding of this. Discussed adequate protein to aid in wound healing. Tyson supplementation was also recommended. Discussed signs and symptoms of infection. Discussed that if she notices increasing redness about the ulcerative site that moves to on top of the foot and up the leg, any purulent drainage from the ulcerative site, increasing foul odor, or if she experiences fever greater than 101 degree accompanied by nausea, vomiting, chills that these are signs of a progressing infection and she should report to the ED for IV antibiotics and further evaluation. She is understanding of this today. The following work up and care recommendations were made: Dressing: Dakin's wet to dry dressing. She is recommended to change dressing daily Wash: Soap and water. Pat area dry. Tissue growth optimization: Dakin's Offload: Surgical shoe with fifth ray cut out Vascular: Nonpalpable DP and PT pulses. LEAS were ordered 10/05/2023, awaiting results. Edema: No pedal edema noted Infection: Possible osteomyelitis fifth metatarsal head, MRI demonstrates acute osteo of the periphery of the periosteal tissue of the fifth metatarsal head. Rx doxycycline 100 mg twice daily x 14 days, levofloxacin 750 mg daily x 14 days. Stop date 10/26/2023 Pain: No pain secondary to diabetic peripheral polyneuropathy Host factors: DM type II with peripheral polyneuropathy, right-sided weakness post CVA in 2019, PVD, tailor's bunion deformity. I answered all the patient's questions. To return to the wound healing center in 1 week or call sooner if the patient has any questions or concerns.
--- NOTE | 2023-10-23 08:42 | WC ---
PHOTO RIGHT FOOT PLANTAR LATERAL 10/19/23
== END 2023-10-19 23:59 | disposition home or self-care (01) ==
LOC: WC 09:45
PROVIDERS: PCP Family Medicine; Referring Provider Physician Assistant; Visit Provider Student in an Organized Health Care Education/Training Program
DX: E11.621 Type 2 diabetes mellitus with foot ulcer (principal); L97.412 Non-pressure chronic ulcer of right heel and midfoot with fat layer exposed; M86.8X7 Other osteomyelitis, ankle and foot; I69.951 Hemiplegia and hemiparesis following unspecified cerebrovascular disease affecting right dominant side; I11.0 Hypertensive heart disease with heart failure; I50.32 Chronic diastolic (congestive) heart failure; I48.0 Paroxysmal atrial fibrillation; Z79.4 Long term (current) use of insulin; E11.42 Type 2 diabetes mellitus with diabetic polyneuropathy; E11.65 Type 2 diabetes mellitus with hyperglycemia; E11.51 Type 2 diabetes mellitus with diabetic peripheral angiopathy without gangrene; E11.319 Type 2 diabetes mellitus with unspecified diabetic retinopathy without macular edema; E11.69 Type 2 diabetes mellitus with other specified complication; E78.5 Hyperlipidemia, unspecified; M21.621 Bunionette of right foot; M20.11 Hallux valgus (acquired), right foot; I25.10 Atherosclerotic heart disease of native coronary artery without angina pectoris; G47.33 Obstructive sleep apnea (adult) (pediatric); E66.9 Obesity, unspecified; Z68.34 Body mass index [BMI] 34.0-34.9, adult; I25.2 Old myocardial infarction; Z79.01 Long term (current) use of anticoagulants; Z79.84 Long term (current) use of oral hypoglycemic drugs; Z79.890 Hormone replacement therapy; Z79.899 Other long term (current) drug therapy; Z95.1 Presence of aortocoronary bypass graft
CPT/HCPCS: 11042; 36415; 71046; 80053; 83036; 84134; 85025; 85652; 86140; 87070; 87075; 87077; 87186; 87205; 93005; 93923; 93970; 99212; 99214; G0463

== ENCOUNTER 2023-11-13 08:00 | Outpatient (RCR) | payer MEDICARE, MEDICAID, SELFPAY ==
[2023-10-20 00:06] VITALS: BP 162/98; PULSE 90; RESP 16; TEMP 36.1; BMI 34.3
--- NOTE | 2023-10-26 10:12 | PCM.WC.PN ---
History of Present Illness Date of Service: 10/26/23 Chief Complaint: Right foot ulceration History of Wound: Ms. Sawyer is a 63-year-old currently being seen at the wound center for right foot ulcer. History of diabetes mellitus type 2 and following recent MRI, diagnosed with osteomyelitis. Per documentation, Mayes stage III. Due to history of diabetic foot wound and osteomyelitis, she has been recommended for hyperbaric oxygen therapy. Comorbidities include coronary artery disease status post CABG. No known history of recurrent ear infections, COPD or tobacco use. She also denies any seizure episodes. She does however report variable blood glucose readings with frequent low blood glucose readings. Currently on insulin. Has continuous glucose monitoring. Recently had an EKG and a chest x-ray done with no acute concerns. She has no acute concerns at this time. Subjective Subjective This is a 63-year-old female who follows up to the wound center for continued care of a plantar lateral fifth metatarsal head ulceration of the right foot. She states she is continue to change the dressing daily with Dakin's. She continues oral antibiotic as instructed. States she has been cleared for HBO but is awaiting insulin kit as she cannot dive with her pump. Continues offloading and surgical shoe with fifth ray cut out. Denies constitutional symptoms. Denies further complaints. Objective Data Objective Data Vital Signs: Vital Signs Temp Pulse Resp BP 97 F L 90 16 162/98 H 10/20/23 00:06 10/20/23 00:06 10/20/23 00:06 10/20/23 00:06 Weight: 90.718 kg Body Mass Index (BMI) 34.3 Physical Exam Const alert, oriented x3 and no apparent distress General Appearance: cooperative HEENT normocephalic Eyes General Eye: normal appearance of both eyes Neck General: normal visual inspection Lymph Lymphatic: no lymphadenopathy noted and no lymphedema noted Resp normal respiratory effort Cardio regular rate and regular rhythm Extremity normal capillary refill, no joint enlargement, no calf tenderness and no pedal edema Extremity Narrative: Right lower extremity: Vascular: DP and PT pulses nonpalpable. Doppler demonstrates monophasic DP and PT. CFT is less than 5 seconds to the digits. Hair growth is absent to digits. Normal temperature gradient is noted. No increased temperature about the ulcerative site. Neurologic: Protective sensation is absent consistent with diabetic peripheral polyneuropathy. Musculoskeletal: Muscle strength 5 of 5 age-appropriate. 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 Decreased range of motion of the first metatarsophalangeal joint without pain or crepitus. Decreased range of motion of the ankle joint in dorsiflexion with the knee extended without pain or crepitus. Dermatologic: There is a full-thickness ulceration noted at the plantar lateral aspect of the fifth metatarsal head tailor's bunion deformity with surrounding hyperkeratosis. Fibrogranular ulcerative bed. Improvement noted with no malodor today and no maceration. Predebridement ulceration measures 1.4 cm x 0.9 cm. Ulceration does not probe to bone. No palpable fluctuance/bogginess. No visible abscess formation. No purulent drainage. No lymphangitic streaking or soft tissue crepitus noted. Skin no rashes or lesions noted, skin turgor normal and no jaundice Neuro moves all extremities Debridement Note Debridement Note Wound debrided: Right subfifth metatarsal head Laterality: Right Wound Grade/Stage: Mayes stage III Type of Debridement: Excisional debridement Anesthesia Used: 5% Lidocaine Gel Depth: Down to and including healthy tissue and in the subcutaneous layer Percentage of wound debrided: 100 Instrument Used: 5mm curette Tissue Removed: Fibrous, devitalized subcutaneous, biofilm, slough Severity: Fat Layer Exposed Amount of bleeding with debridement: Mild Bleeding Controlled with: Compression and gauze Patient tolerated procedure: Patient tolerated procedure well Assessment/Plan Assessment/Plan (1) Non-pressure chronic 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: CODE(S): L97.513 - Non-pressure chronic 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 (2) Diabetes mellitus with diabetic polyneuropathy: CODE(S): E11.42 - Type 2 diabetes mellitus with diabetic polyneuropathy (3) Type 2 diabetes mellitus with foot ulcer: CODE(S): E11.621 - Type 2 diabetes mellitus with foot ulcer; L97.509 - Non-pressure chronic ulcer of other part of unspecified foot with unspecified severity QUALIFIERS: Diabetes mellitus ocean transportation intermediary insulin use: with ocean transportation intermediary use Qualified Code(s): E11.621 - Type 2 diabetes mellitus with foot ulcer; L97.509 - Non-pressure chronic ulcer of other part of unspecified foot with unspecified severity; Z79.4 - long term care social worker (current) use of insulin (4) Hallux valgus of right foot: CODE(S): M20.11 - Hallux valgus (acquired), right foot (5) Tailor's bunion of right foot: CODE(S): M21.621 - Bunionette of right foot (6) Osteomyelitis: CODE(S): M86.9 - Osteomyelitis, unspecified QUALIFIERS: Laterality: right Osteomyelitis location: foot Osteomyelitis type: unspecified type Qualified Code(s): M86.9 - Osteomyelitis, unspecified (7) Peripheral arterial disease: CODE(S): I73.9 - Peripheral vascular disease, unspecified PLAN: Plan Patient seen and evaluated I have reviewed her previous note on 09/25/2023 from the [facility] and patient was placed on 10-day oral doxycycline with stop date of 10/05/2023. I have also reviewed imaging from 09/25/2023 demonstrating the subtle erosive change at the plantar lateral aspect of the fifth metatarsal which is questionable for osteomyelitis. Discussed her nonpalpable pedal pulses and urged vascular studies to be performed. LEAS were ordered. Discussed obtaining MRI for further evaluation to rule out osteomyelitis. Cultures were obtained of the wound. Cultures demonstrate: Providencia rettgeri, Streptococcus agalactiae (B), Streptococcus mitis, gram-negative carla, rare Pasteurella canis, Prevotella bivia, Fusobacterium nucleatum. She was prescribed continued course of oral doxycycline 100 mg twice daily x 14 days (stop date 10/26/2023) and oral Levofloxacin 750 mg daily x 14 days (stop date 10/26/2023) Predebridement measurement 1.1 cm x 1.1 cm Ulceration was debrided as noted in the clinical panel above. Postdebridement measurement 1.2 cm x 1.2 cm x 0.3 cm. Ulceration does not probe to bone and is granulating in well. Ulceration was dressed with Dakin's wet to dry dressing. She was instructed on changing dressing daily. Surgical offloading shoe was given with fifth ray cut out for continued offloading. Ulceration demonstrates continued reduction in size versus previous visit with overall improvement noted since starting oral antibiotic and utilizing Dakin's for dressings. Discussed her MRI from 10/05/2023 demonstrates focal marrow edema of the lateral aspect of the fifth metatarsal head, series 7 image 13 with overlying soft tissue swelling. Radiology states findings consistent with osteomyelitis. I do feel upon review that there is periostitis secondary to infection at the plantar lateral aspect but complete destruction is not visualized. Overall wound is improving with Dakin's and oral antibiotics. I have discussed options with her of both surgical and conservative. Discussed surgical options include amputation of the fifth metatarsal head and debridement of necrotic tissue. Discussed conservatively to continue the Dakin's with oral antibiotics and clearance for HBO therapy. Patient would like to try to continue the oral antibiotics with the HBO therapy as she does feel she can heal. Process will begin for HBO therapy clearance. Labs were ordered consisting of CBC with differential, Chem 12, CXR, EKG, prealbumin. Patient will also see Dr. Garsia for physical and clearance prior to HBO therapy. LEAS was ordered. Currently on Oral antiboitics and has completed 2 weeks with additional 2 weeks prescribed. She will also see Dr. Soto, infectious disease for continued antibiotic course. I reviewed her labs for HBO clearance performed 10/13/23. WBC 8.9; Hgb 12.6; Hct 39.3; AST 16; ALT 15; CRP 9.56; albumin 3.0; prealbumin 18; sodium 139; potassium 3.8; chloride 101; CO2 30.0; BUN 19;Cr 0.96; glucose 145; HgbA1c 8.2%. She did see Dr. Garsia for clearance and has been cleared for HBO dives. Venous studies 10/13/23: Negative for acute DVT. Deep veins bilateral lower extremities patent and compressible segmentally. Positive reflux left saphenofemoral junction. LEAS: Right GARCÍA 0.87, moderate arterial insufficiency; Doppler and PVR waveforms demonstrate infrapopliteal disease. Left GARCÍA 0.41, severe arterial insufficiency. Doppler/PVR waveforms reveal distal SFA/popliteal and infrapopliteal disease. Patient will continue follow-up with Dr. Figueroa, vascular surgery. Discussed continuing to lower blood sugar as sugar today was 200 mg/dL. Last A1c was 9.0%, recently down to 8.2%. She was encouraged for continued reduction. Discussed proper diabetic diet to aid in reduction of glucose and striving for A1c of under 7% to optimize healing. Patient is understanding of this. Discussed adequate protein to aid in wound healing. Tyson supplementation was also recommended. Discussed signs and symptoms of infection. Discussed that if she notices increasing redness about the ulcerative site that moves to on top of the foot and up the leg, any purulent drainage from the ulcerative site, increasing foul odor, or if she experiences fever greater than 101 degree accompanied by nausea, vomiting, chills that these are signs of a progressing infection and she should report to the ED for IV antibiotics and further evaluation. She is understanding of this today. The following work up and care recommendations were made: Dressing: Dakin's wet to dry dressing. She is recommended to change dressing daily Wash: Soap and water. Pat area dry. Tissue growth optimization: Dakin's Offload: Surgical shoe with fifth ray cut out Vascular: Nonpalpable DP and PT pulses. LEAS were ordered 10/05/2023, awaiting results. Edema: No pedal edema noted Infection: Possible osteomyelitis fifth metatarsal head, MRI demonstrates acute osteo of the periphery of the periosteal tissue of the fifth metatarsal head. Rx doxycycline 100 mg twice daily x 14 days, levofloxacin 750 mg daily x 14 days. Stop date 10/26/2023 Pain: No pain secondary to diabetic peripheral polyneuropathy Host factors: DM type II with peripheral polyneuropathy, right-sided weakness post CVA in 2019, PVD, tailor's bunion deformity. I answered all the patient's questions. To return to the wound healing center in 1 week or call sooner if the patient has any questions or concerns.
[2023-10-26 10:49] VITALS: BP 149/77; PULSE 100; RESP 16; TEMP 36.9; BMI 34.3
[2023-10-30 09:14] LABS: Bedside Glucose 128 mg/dL (74-106)
--- NOTE | 2023-10-30 09:21 | WC ---
Patient couldn't do hBO treatment today d/t wax buildup.Appointment was made with [facility] @8am. Pt instructed to call in afterwards for next dive schedule.
--- NOTE | 2023-10-30 11:42 | PCM.HBO.PN ---
History of Present Illness Date of Service: 10/30/23 Chief Complaint: Right foot ulceration History of Wound: Ms. Sawyer is a 63-year-old currently being seen at the wound center for right foot ulcer. History of diabetes mellitus type 2 and following recent MRI, diagnosed with osteomyelitis. Per documentation, Mayes stage III. Due to history of diabetic foot wound and osteomyelitis, she has been recommended for hyperbaric oxygen therapy. Comorbidities include coronary artery disease status post CABG. No known history of recurrent ear infections, COPD or tobacco use. She also denies any seizure episodes. She does however report variable blood glucose readings with frequent low blood glucose readings. Currently on insulin. Has continuous glucose monitoring. Recently had an EKG and a chest x-ray done with no acute concerns. She has no acute concerns at this time. Progress of Wound: Today was supposed to be Joya's first day for HBOT. Unable to visualize her TM due to impacted cerumen. Attempted to irrigate the cerumen out with a syringe and warm water and a curette, but was unsuccessful. Will Refer her to ENT to have the cerumen removed, so we will have better visual of her TM before she starts HBOT. Her initial blood sugar was in low 120's. She was given shake to help bring up her sugar. Discussed eating protein with her breakfast (today she only had toast). Discussed what is considered a protein and why it is important to keeping blood sugars stable. Objective Data Objective Data Vital Signs: Vital Signs Temp Pulse Resp BP 98.4 F 100 16 149/77 H 10/26/23 10:49 10/26/23 10:49 10/26/23 10:49 10/26/23 10:49 Weight: 200 lb Body Mass Index (BMI) 34.3 Lab / Micro Data Labs: Laboratory Results - last 24 hr 10/30/23 08:56: POC Glucose 128 H Exam Physical Exam Const alert and oriented x3 HEENT normocephalic HEENT Narrative: Today was supposed to be Joya's first day for HBOT. Unable to visualize her TM due to impacted cerumen. Attempted to irrigate the cerumen out with a syringe and warm water and a curette, but was unsuccessful. Will Refer her to ENT to have the cerumen removed, so we will have better visual of her TM before she starts HBOT. Head and Scalp: atraumatic Eyes PERRL Resp normal respiratory effort, no use of accessory muscles and clear to auscultation bilaterally Effort and Inspection: able to speak in complete sentences Cardio regular rate and regular rhythm Psych affect normal Charges/Coding Visit Charges Office Visits / Consults: [id number] OV L2 Est 10min Assessment/Plan Assessment/Plan (1) Type 2 diabetes mellitus with foot ulcer: CODE(S): E11.621 - Type 2 diabetes mellitus with foot ulcer; L97.509 - Non-pressure chronic ulcer of other part of unspecified foot with unspecified severity QUALIFIERS: Diabetes mellitus correction insulin use: with correction use Qualified Code(s): E11.621 - Type 2 diabetes mellitus with foot ulcer; L97.509 - Non-pressure chronic ulcer of other part of unspecified foot with unspecified severity; Z79.4 - regional intermodal 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 (current) use of insulin (2) Osteomyelitis: CODE(S): M86.9 - Osteomyelitis, unspecified QUALIFIERS: Osteomyelitis type: unspecified type Osteomyelitis location: foot Laterality: right Qualified Code(s): M86.9 - Osteomyelitis, unspecified (3) Impacted cerumen of both ears: CODE(S): H61.23 - Impacted cerumen, bilateral (4) Type 2 diabetes mellitus: CODE(S): E11.9 - Type 2 diabetes mellitus without complications QUALIFIERS: Diabetes mellitus termite inspector insulin use: with correction use Diabetes mellitus complication status: with hyperglycemia Qualified Code(s): E11.65 - Type 2 diabetes mellitus with hyperglycemia; Z79.4 - detention (current) use of insulin PLAN: Plan Will hold off on HBOT until cerumen impaction is removed and able to better visualize TM. She has an appointment with [facility] on . She will follow up after that to start her HBO therapy.
[2023-11-02 08:50] VITALS: BP 144/69; PULSE 86; RESP 18; TEMP 35.9; BMI 34.3
--- NOTE | 2023-11-02 08:55 | PCM.WC.PN ---
History of Present Illness Date of Service: 11/02/23 Chief Complaint: Right foot ulceration History of Wound: Ms. Sawyer is a 63-year-old currently being seen at the wound center for right foot ulcer. History of diabetes mellitus type 2 and following recent MRI, diagnosed with osteomyelitis. Per documentation, Mayes stage III. Due to history of diabetic foot wound and osteomyelitis, she has been recommended for hyperbaric oxygen therapy. Comorbidities include coronary artery disease status post CABG. No known history of recurrent ear infections, COPD or tobacco use. She also denies any seizure episodes. She does however report variable blood glucose readings with frequent low blood glucose readings. Currently on insulin. Has continuous glucose monitoring. Recently had an EKG and a chest x-ray done with no acute concerns. She has no acute concerns at this time. Progress of Wound: Today was supposed to be Joya's first day for HBOT. Unable to visualize her TM due to impacted cerumen. Attempted to irrigate the cerumen out with a syringe and warm water and a curette, but was unsuccessful. Will Refer her to ENT to have the cerumen removed, so we will have better visual of her TM before she starts HBOT. Her initial blood sugar was in low 120's. She was given shake to help bring up her sugar. Discussed eating protein with her breakfast (today she only had toast). Discussed what is considered a protein and why it is important to keeping blood sugars stable. Subjective Subjective This is a 63-year-old female who follows up to the wound center for continued care of a plantar lateral fifth metatarsal head ulceration of the right foot. She states she is continue to change the dressing daily with Dakin's. She continues oral antibiotic as instructed. She states she recently had ears cleaned out to prepare to dive in the next few days. Continues offloading and surgical shoe with fifth ray cut out. Denies constitutional symptoms. Denies further complaints. Objective Data Objective Data Vital Signs: Vital Signs Temp Pulse Resp BP 96.7 F L 86 18 144/69 H 11/02/23 08:50 11/02/23 08:50 11/02/23 08:50 11/02/23 08:50 Weight: 90.718 kg Body Mass Index (BMI) 34.3 Physical Exam Const alert, oriented x3 and no apparent distress General Appearance: cooperative HEENT normocephalic Eyes General Eye: normal appearance of both eyes Neck General: normal visual inspection Lymph Lymphatic: no lymphadenopathy noted and no lymphedema noted Resp normal respiratory effort Cardio regular rate and regular rhythm Extremity normal capillary refill, no joint enlargement, no calf tenderness and no pedal edema Extremity Narrative: Right lower extremity: Vascular: DP and PT pulses nonpalpable. Doppler demonstrates monophasic DP and PT. CFT is less than 5 seconds to the digits. Hair growth is absent to digits. Normal temperature gradient is noted. No increased temperature about the ulcerative site. Neurologic: Protective sensation is absent consistent with diabetic peripheral polyneuropathy. Musculoskeletal: Muscle strength 5 of 5 age-appropriate. 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 Decreased range of motion of the first metatarsophalangeal joint without pain or crepitus. Decreased range of motion of the ankle joint in dorsiflexion with the knee extended without pain or crepitus. Dermatologic: There is a full-thickness ulceration noted at the plantar lateral aspect of the fifth metatarsal head tailor's bunion deformity with surrounding hyperkeratosis. Fibrogranular ulcerative bed. Improvement noted with no malodor today and no maceration. Predebridement ulceration measures 1.4 cm x 0.9 cm. Ulceration does not probe to bone. No palpable fluctuance/bogginess. No visible abscess formation. No purulent drainage. No lymphangitic streaking or soft tissue crepitus noted. Skin no rashes or lesions noted, skin turgor normal and no jaundice Neuro moves all extremities Debridement Note Debridement Note Wound debrided: Subfifth metatarsal right foot Laterality: Right Wound Grade/Stage: Mayes stage III Type of Debridement: Excisional debridement Anesthesia Used: 5% Lidocaine Gel Depth: Down to and including healthy tissue and in the subcutaneous layer Percentage of wound debrided: 100 Instrument Used: 5mm curette Tissue Removed: Fibrous, devitalized subcutaneous, biofilm, slough Severity: Fat Layer Exposed Amount of bleeding with debridement: Mild Bleeding Controlled with: Compression and gauze Patient tolerated procedure: Patient tolerated procedure well Post-Debridement Measurements and Additional Note: Post-Debridement Measurements/Treatment [place] - Nurse 1 - General Ulcer Assessment Start: 10/26/23 10:49 Freq: Status: Active Protocol: DEDRICK Activity Type Activity Date Activity User E-sign Co-sign Detail Recorded Client Recorded Date Recorded By Document 10/26/23 10:49 CP [id number] 10/26/23 10:58 CP Document 11/02/23 08:50 RB [id number] 11/02/23 08:52 RB 10/26/23 11/02/23 10:49 08:50 - Today's Visit Information Type of service Follow-up Visit Follow-up Visit (Physician/[employer] (Physician/[employer] ) ) Arrival Mode Ambulatory Ambulatory Transfer Assistance None Patient Identification Verified (Name & Yes Yes ) Patient Requires Transmission-Based No No Precautions Finger Stick Blood Sugar(mg/dl) (if 160 indicated): Blood Sugar Stated by Patient Height and Weight Body Mass Index (BMI) 34.3 34.3 BMI Classification Obese Obese Vital Signs Temperature (97.8 F-99.1 F) 98.4 F 96.7 F L Temperature Source Temporal Temporal Pulse Rate (60-100) 100 86 Pulse Location Monitor Monitor Respiratory Rate (12-18) 16 18 Respiratory rate source Observation Observation Blood Pressure (90/60-120/80) 149/77 H 144/69 H Blood Pressure Mean (mm Hg) 101 94 Source Monitor Monitor Position Sitting Sitting Blood Pressure Location Left Forearm Left Arm History Since Last Visit- (Skip if this is Patient's initial visit) Have you changed medications since your No No last visit? Any new allergies or adverse reactions No No Had a fall/change in ADL's that may No No increase risk of falls Signs or symptoms of abuse and/or No No neglect since last visit Have you been in the hospital since your No No last visit? Has dressing in place as prescribed Yes Yes Has compression in place as prescribed N/A No Has offloadiing in place as prescribed Yes No Experienced any changes in pain level or No management Right Footwear Surgical Shoe with pressure relief insole Pain Scale: 0-10 Numeric Is Patient Pain Free? Yes Yes - Nurse 1 - General Ulcer Measurement Start: 10/26/23 10:49 Freq: Status: Active Protocol: Activity Type Activity Date Activity User E-sign Co-sign Detail Recorded Client Recorded Date Recorded By Document 10/26/23 10:49 CP [id number] 10/26/23 10:58 Document 11/02/23 08:50 RB [id number] 11/02/23 08:52 RB 10/26/23 11/02/23 10:49 08:50 Wound Center Nurse 1 1. R FOOT PLANTAR LATERAL -Combined with other wound No -Current Size (cm) - Length 1.2 1.5 -Current Size (cm) - Width 1 1.5 -Current Size (cm) - Depth 0.3 0.2 -Total Square Cm 1.2 2.25 -Tunneling No No -Undermining/Tunneling No No -Circular Undermining No -Exudate Amt Small Medium -Exudate Type Serosanguineous Serosanguineous -Wound Margin Thickened & Distinct, Rolled Under Outline Attached -Granulation Amt Large (67-100%) Medium (34-66%) -Granulation Quality [place] -Slough/Fibrin Yes Yes -Necrosis Amt Small (1-33%) Medium (34-66%) -Necrotic Tissue Type Adherent Slough Adherent Slough -Structure Exposed N/A N/A -Texture (Pema-wound Skin Appearance) Callus Assessed,Callus -Moisture (Pema-wound Skin Appearance) No Abnormality Assessed -Color (Pema-wound Skin Appearance) No Abnormality Assessed -Temperature (Pema-wound Skin No Abnormality No Abnormality Appearance) (Pt Warm) (Pt Warm) -Tenderness on Palpation (Pema-wound No No Skin Appearance) -Ulcer Cleansing Rinsed/ Wound Cleanser Irrigated with Saline -Foul Odor after Cleansing No -Anesthetic Used 5% Lidocaine 5% Lidocaine Gel Gel WC - Nurse 2 - General Ulcer CM Notes Start: 10/26/23 10:49 Freq: Status: Active Protocol: Activity Type Activity Date Activity User E-sign Co-sign Detail Recorded Client Recorded Date Recorded By Document 10/26/23 11:[address] [facility] [id number] 10/26/23 11:[address] [facility] 10/26/23 11:12 Wound Center Nurse 2 -Time 11:12 -Correct Patient Yes -Correct Side, Site, Position Yes -Correct Procedure Yes -Procedure Performed Yes -Type of Procedure Debridement -Clinical Debridement Subcutaneous -Tissue Removed Subcutaneous -Post Debridement (cm) - Length 1.2 -Post Debridement (cm) - Width 1.2 -Post Debridement (cm) - Depth 0.1 -Total Square (Post) (cm) 1.44 -Area of Debridement (cm) - Length 1.2 -Area of Debridement (cm) - Width 1.2 -Total Square (Area) (cm) 1.44 -Tunneling No -Undermining/Tunneling No -Circular Undermining No -Wound/Ulcer Outcome Not Healed -Ulcer Cleansing Rinsed/ Irrigated with Saline -Foul Odor after Cleansing No -Bioengineered Tissue No -Bleeding Controlled with Pressure -Treatment Response Procedure Tolerated Well -Debridement - Subq, 1st 20sq cm Yes Pain Scale: 0-10 Numeric Is Patient Pain Free? Yes - Nurse 3 - General Ulcer D/C NN Start: 10/26/23 10:49 Freq: Status: Active Protocol: Activity Type Activity Date Activity User E-sign Co-sign Detail Recorded Client Recorded Date Recorded By Document 10/26/23 11:30 DL [id number] 10/26/23 11:31 DL 10/26/23 11:30 Wound Care Center Nurse 3 1. R FOOT PLANTAR LATERAL -Ulcer Cleansing Rinsed/ Irrigated with Saline -Foul Odor after Cleansing No -Other Dressing dakins -Primary Dressing Covered/Secured with Dry Gauze & Roll Gauze, Secured with Tape Treatment Response Procedure Tolerated Well Pain Scale: 0-10 Numeric Is Patient Pain Free? Yes - Visit Discharge Discharge Condition Stable Ambulatory Status Ambulatory Transportation Private Auto Assessment/Plan Assessment/Plan (1) Non-pressure chronic 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: CODE(S): L97.513 - Non-pressure chronic 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 (2) Diabetes mellitus with diabetic polyneuropathy: CODE(S): E11.42 - Type 2 diabetes mellitus with diabetic polyneuropathy (3) Type 2 diabetes mellitus with foot ulcer: CODE(S): E11.621 - Type 2 diabetes mellitus with foot ulcer; L97.509 - Non-pressure chronic ulcer of other part of unspecified foot with unspecified severity QUALIFIERS: Diabetes mellitus correction insulin use: with correction use Qualified Code(s): E11.621 - Type 2 diabetes mellitus with foot ulcer; L97.509 - Non-pressure chronic ulcer of other part of unspecified foot with unspecified severity; Z79.4 - wedger and gluer (current) use of insulin (4) Hallux valgus of right foot: CODE(S): M20.11 - Hallux valgus (acquired), right foot (5) Tailor's bunion of right foot: CODE(S): M21.621 - Bunionette of right foot (6) Osteomyelitis: CODE(S): M86.9 - Osteomyelitis, unspecified QUALIFIERS: Osteomyelitis type: unspecified type Osteomyelitis location: foot Laterality: right Qualified Code(s): M86.9 - Osteomyelitis, unspecified (7) Peripheral arterial disease: CODE(S): I73.9 - Peripheral vascular disease, unspecified PLAN: Plan Patient seen and evaluated I have reviewed her previous note on 09/25/2023 from the [facility] and patient was placed on 10-day oral doxycycline with stop date of 10/05/2023. I have also reviewed imaging from 09/25/2023 demonstrating the subtle erosive change at the plantar lateral aspect of the fifth metatarsal which is questionable for osteomyelitis. Cultures were obtained of the wound. Cultures demonstrate: Providencia rettgeri, Streptococcus agalactiae (B), Streptococcus mitis, gram-negative carla, rare Pasteurella canis, Prevotella bivia, Fusobacterium nucleatum. She was prescribed continued course of oral doxycycline 100 mg twice daily x 14 days (stop date 10/26/2023) and oral Levofloxacin 750 mg daily x 14 days (stop date 10/26/2023) Predebridement measurement 1.4 cm x 1.2 cm Ulceration was debrided as noted in the clinical panel above. Postdebridement measurement 1.5 cm x 1.3 cm x 0.1 cm. Ulceration does not probe to bone and is granulating in well. Ulceration was dressed with Dakin's wet to dry dressing. She was instructed on changing dressing daily. Surgical offloading shoe was given with fifth ray cut out for continued offloading. Ulceration demonstrates slight increase in size versus previous visit but depth has decreased this week. Discussed applying for advanced wound care product, EpiFix for application at next visit. Discussed her MRI from 10/05/2023 demonstrates focal marrow edema of the lateral aspect of the fifth metatarsal head, series 7 image 13 with overlying soft tissue swelling. Radiology states findings consistent with osteomyelitis. I do feel upon review that there is periostitis secondary to infection at the plantar lateral aspect but complete destruction is not visualized. Overall wound is improving with Dakin's and oral antibiotics. I have discussed options with her of both surgical and conservative. Discussed surgical options include amputation of the fifth metatarsal head and debridement of necrotic tissue. Discussed conservatively to continue the Dakin's with oral antibiotics and clearance for HBO therapy. Patient would like to try to continue the oral antibiotics with the HBO therapy as she does feel she can heal. I reviewed her labs for HBO clearance performed 10/13/23. WBC 8.9; Hgb 12.6; Hct 39.3; AST 16; ALT 15; CRP 9.56; albumin 3.0; prealbumin 18; sodium 139; potassium 3.8; chloride 101; CO2 30.0; BUN 19;Cr 0.96; glucose 145; HgbA1c 8.2%. She did see Dr. Garsia for clearance and has been cleared for HBO dives. Will be starting HBO dives soon. Venous studies 10/13/23: Negative for acute DVT. Deep veins bilateral lower extremities patent and compressible segmentally. Positive reflux left saphenofemoral junction. LEAS: Right GARCÍA 0.87, moderate arterial insufficiency; Doppler and PVR waveforms demonstrate infrapopliteal disease. Left GARCÍA 0.41, severe arterial insufficiency. Doppler/PVR waveforms reveal distal SFA/popliteal and infrapopliteal disease. Patient will continue follow-up with Dr. Figueroa, vascular surgery. Discussed continuing to lower blood sugar as sugar today was 200 mg/dL. Last A1c was 9.0%, recently down to 8.2%. She was encouraged for continued reduction. Discussed proper diabetic diet to aid in reduction of glucose and striving for A1c of under 7% to optimize healing. Patient is understanding of this. Discussed adequate protein to aid in wound healing. Tyson supplementation was also recommended. Discussed signs and symptoms of infection. Discussed that if she notices increasing redness about the ulcerative site that moves to on top of the foot and up the leg, any purulent drainage from the ulcerative site, increasing foul odor, or if she experiences fever greater than 101 degree accompanied by nausea, vomiting, chills that these are signs of a progressing infection and she should report to the ED for IV antibiotics and further evaluation. She is understanding of this today. The following work up and care recommendations were made: Dressing: Vivian's wet to dry dressing. She is recommended to change dressing daily Wash: Soap and water. Pat area dry. Tissue growth optimization: Vivian's Offload: Surgical shoe with fifth ray cut out Vascular: Nonpalpable DP and PT pulses. LEAS were ordered 10/05/2023, awaiting results. Edema: No pedal edema noted Infection: Possible osteomyelitis fifth metatarsal head, MRI demonstrates acute osteo of the periphery of the periosteal tissue of the fifth metatarsal head. Rx doxycycline 100 mg twice daily x 14 days, levofloxacin 750 mg daily x 14 days. Stop date 10/26/2023 Pain: No pain secondary to diabetic peripheral polyneuropathy Host factors: DM type II with peripheral polyneuropathy, right-sided weakness post CVA in 2019, PVD, tailor's bunion deformity. I answered all the patient's questions. To return to the wound healing center in 1 week or call sooner if the patient has any questions or concerns.
[2023-11-02 09:32] LABS: Bedside Glucose 176 mg/dL (74-106)
[2023-11-02 11:55] LABS: Bedside Glucose 123 mg/dL (74-106)
[2023-11-02 12:02] VITALS: BP 148/74; BP 162/81; PULSE 79; PULSE 87; RESP 13; RESP 14; TEMP 36.8
--- NOTE | 2023-11-02 16:51 | PCM.HBO.PN ---
History of Present Illness Date of Service: 11/02/23 Chief Complaint: Right foot ulceration History of Wound: Ms. Sawyer is a 63-year-old currently being seen at the wound center for right foot ulcer. History of diabetes mellitus type 2 and following recent MRI, diagnosed with osteomyelitis. Per documentation, Mayes stage III. Due to history of diabetic foot wound and osteomyelitis, she has been recommended for hyperbaric oxygen therapy. Comorbidities include coronary artery disease status post CABG. No known history of recurrent ear infections, COPD or tobacco use. She also denies any seizure episodes. She does however report variable blood glucose readings with frequent low blood glucose readings. Currently on insulin. Has continuous glucose monitoring. Recently had an EKG and a chest x-ray done with no acute concerns. She has no acute concerns at this time. Progress of Wound: Progress: Today represents her first HBO session. Tolerance: Hyperbaric oxygen treatment was administered as per the facility's protocol at 2.0 PILO in 100% oxygen for 90 minutes without air breaks. The patient tolerated hyperbaric oxygen therapy without complaints or complications. Pre and post blood glucose levels as documented. Upon emergence from the hyperbaric chamber, her vitals remained stable and she was discharged in stable condition. Objective Data Objective Data Vital Signs: Vital Signs Temp Pulse Resp BP 98.2 F 87 14 162/81 H 11/02/23 12:02 11/02/23 12:02 11/02/23 12:02 11/02/23 12:02 Weight: 200 lb Body Mass Index (BMI) 34.3 Lab / Micro Data Labs: Laboratory Results - last 24 hr 11/02/23 09:15: POC Glucose 176 H 11/02/23 11:38: POC Glucose 123 H Exam Physical Exam Const alert, oriented x3 and no apparent distress General Appearance: cooperative and comfortable HEENT normocephalic and head/scalp atraumatic Tympanic Membrane: TM's normal bilaterally Eyes EOMs intact bilaterally Neck full ROM and supple General: normal visual inspection Neuro oriented x3, CN's II-XII intact bilaterally, moves all extremities and no focal motor deficits Psych mental status grossly normal, thought process normal, cooperative, affect normal and speech normal Nursing Assessment and Debridement Post-Debridement Measurements and Additional Note: Post-Debridement Measurements/Treatment ENID - Nurse 1 - General Ulcer Assessment Start: 10/26/23 10:49 Freq: Status: Active Protocol: WC.LOWEXT Activity Type Activity Date Activity User E-sign Co-sign Detail Recorded Client Recorded Date Recorded By Document 11/02/23 08:50 TOMAS [id number] 11/02/23 08:52 11/02/23 08:50 - Today's Visit Information Type of service Follow-up Visit (Physician/ANIMAL TRAINER ) Arrival Mode Ambulatory Transfer Assistance None Patient Identification Verified (Name & Yes ) Patient Requires Transmission-Based No Precautions Finger Stick Blood Sugar(mg/dl) (if 160 indicated): Blood Sugar Stated by Patient Height and Weight Body Mass Index (BMI) 34.3 BMI Classification Obese Vital Signs Temperature (97.8 F-99.1 F) 96.7 F L Temperature Source Temporal Pulse Rate (60-100) 86 Pulse Location Monitor Respiratory Rate (12-18) 18 Respiratory rate source Observation Blood Pressure (90/60-120/80) 144/69 H Blood Pressure Mean (mm Hg) 94 Source Monitor Position Sitting Blood Pressure Location Left Arm History Since Last Visit- (Skip if this is Patient's initial visit) Have you changed medications since your No last visit? Any new allergies or adverse reactions No Had a fall/change in ADL's that may No increase risk of falls Signs or symptoms of abuse and/or No neglect since last visit Have you been in the hospital since your No last visit? Has dressing in place as prescribed Yes Has compression in place as prescribed No Has offloadiing in place as prescribed No Experienced any changes in pain level or No management Pain Scale: 0-10 Numeric Is Patient Pain Free? Yes - Nurse 1 - General Ulcer Measurement Start: 10/26/23 10:49 Freq: Status: Active Protocol: Activity Type Activity Date Activity User E-sign Co-sign Detail Recorded Client Recorded Date Recorded By Document 11/02/23 08:50 TOMAS [id number] 11/02/23 08:52 11/02/23 08:50 Wound Center Nurse 1 1. R FOOT PLANTAR LATERAL -Combined with other wound No -Current Size (cm) - Length 1.5 -Current Size (cm) - Width 1.5 -Current Size (cm) - Depth 0.2 -Total Square Cm 2.25 -Tunneling No -Undermining/Tunneling No -Circular Undermining No -Exudate Amt Medium -Exudate Type Serosanguineous -Wound Margin Distinct, Outline Attached -Granulation Amt Medium (34-66%) -Granulation Quality [place] -Slough/Fibrin Yes -Necrosis Amt Medium (34-66%) -Necrotic Tissue Type Adherent Slough -Structure Exposed N/A -Texture (Pema-wound Skin Appearance) Assessed,Callus -Moisture (Pema-wound Skin Appearance) Assessed -Color (Pema-wound Skin Appearance) Assessed -Temperature (Pema-wound Skin No Abnormality Appearance) (Pt Warm) -Tenderness on Palpation (Pema-wound No Skin Appearance) -Ulcer Cleansing Wound Cleanser -Foul Odor after Cleansing No -Anesthetic Used 5% Lidocaine Gel WC - Nurse 2 - General Ulcer CM Notes Start: 10/26/23 10:49 Freq: Status: Active Protocol: Activity Type Activity Date Activity User E-sign Co-sign Detail Recorded Client Recorded Date Recorded By Document 11/02/23 08:55 [facility] [id number] 11/02/23 09:03 [facility] 11/02/23 08:55 Wound Center Nurse 2 -Time 08:55 -Correct Patient Yes -Correct Side, Site, Position Yes -Correct Procedure Yes -Procedure Performed Yes -Type of Procedure Debridement -Clinical Debridement Subcutaneous -Tissue Removed Subcutaneous -Post Debridement (cm) - Length 1.5 -Post Debridement (cm) - Width 1.3 -Post Debridement (cm) - Depth 0.1 -Total Square (Post) (cm) 1.95 -Area of Debridement (cm) - Length 1.5 -Area of Debridement (cm) - Width 1.3 -Total Square (Area) (cm) 1.95 -Tunneling No -Undermining/Tunneling No -Circular Undermining No -Wound/Ulcer Outcome Not Healed -Ulcer Cleansing Rinsed/ Irrigated with Saline -Foul Odor after Cleansing No -Bioengineered Tissue No -Bleeding Controlled with Pressure -Treatment Response Procedure Tolerated Well -Debridement - Subq, 1st 20sq cm Yes Pain Scale: 0-10 Numeric Is Patient Pain Free? Yes - Nurse 3 - General Ulcer D/C NN Start: 10/26/23 10:49 Freq: Status: Active Protocol: Activity Type Activity Date Activity User E-sign Co-sign Detail Recorded Client Recorded Date Recorded By Document 11/02/23 09:07 [facility] [id number] 11/02/23 09:08 [facility] 11/02/23 09:07 Wound Care Center Nurse 3 1. R FOOT PLANTAR LATERAL -Ulcer Cleansing Rinsed/ Irrigated with Saline -Foul Odor after Cleansing No -Other Dressing dakins moist gauze -Primary Dressing Covered/Secured with Dry Gauze & Roll Gauze, Secured with Tape Treatment Response Procedure Tolerated Well Pain Scale: 0-10 Numeric Is Patient Pain Free? 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 supervisor use Qualified Code(s): E11.621 - Type 2 diabetes mellitus with foot ulcer; L97.509 - Non-pressure chronic ulcer of other part of unspecified foot with unspecified severity; Z79.4 - 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) use of insulin (2) Osteomyelitis: CODE(S): M86.9 - Osteomyelitis, unspecified QUALIFIERS: Osteomyelitis type: unspecified type Osteomyelitis location: foot Laterality: right Qualified Code(s): M86.9 - Osteomyelitis, unspecified (3) Non-pressure chronic 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: CODE(S): L97.513 - Non-pressure chronic 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 (4) Type 2 diabetes mellitus: CODE(S): E11.9 - Type 2 diabetes mellitus without complications QUALIFIERS: Diabetes mellitus penitentiary insulin use: with penitentiary use Diabetes mellitus complication status: with hyperglycemia Qualified Code(s): E11.65 - Type 2 diabetes mellitus with hyperglycemia; Z79.4 - jail (current) use of insulin (5) Peripheral arterial disease: CODE(S): I73.9 - Peripheral vascular disease, unspecified PLAN: Plan The patient tolerated hyperbaric oxygen therapy well which will be continued per her medical plan. This note was generated with TextMasteration software. It may contain incorrect words, spelling, and punctuation that were not noted in checking the note before signing.
[2023-11-03 08:29] LABS: Bedside Glucose 195 mg/dL (74-106)
[2023-11-03 10:33] VITALS: BP 154/82; BP 169/69; PULSE 75; PULSE 87; RESP 14; TEMP 36.5; TEMP 36.9
[2023-11-03 10:38] LABS: Bedside Glucose 100 mg/dL (74-106)
--- NOTE | 2023-11-03 14:06 | HBO.PN.PCM_ITS ---
History of Present Illness Date of Service: 11/03/23 Chief Complaint: Right foot ulceration History of Wound: Ms. Sawyer is a 63-year-old currently being seen at the wound center for right foot ulcer. History of diabetes mellitus type 2 and following recent MRI, diagnosed with osteomyelitis. Per documentation, Mayes stage III. Due to history of diabetic foot wound and osteomyelitis, she has been recommended for hyperbaric oxygen therapy. Comorbidities include coronary artery disease status post CABG. No known history of recurrent ear infections, COPD or tobacco use. She also denies any seizure episodes. She does however report variable blood glucose readings with frequent low blood glucose readings. Currently on insulin. Has continuous glucose monitoring. Recently had an EKG and a chest x-ray done with no acute concerns. She has no acute concerns at this time. Progress of Wound: Progress: Today represents her 2nd of 30 planned HBO treatment sessions. Tolerance: Hyperbaric oxygen treatment was administered as per the facility's protocol at 2.0 PILO in 100% oxygen for 90 minutes without air breaks. The patient tolerated hyperbaric oxygen therapy without complaints or complications. Pre and post blood glucose levels as documented. Upon emergence from the hyperbaric chamber, her vitals remained stable and she was discharged in stable condition. Objective Data Objective Data Vital Signs: Vital Signs Temp Pulse Resp BP 97.7 F L 87 14 169/69 H 11/03/23 10:33 11/03/23 10:33 11/03/23 10:33 11/03/23 10:33 Weight: 90.718 kg Body Mass Index (BMI) 34.3 Lab / Micro Data Labs: Laboratory Results - last 24 hr 11/03/23 08:11: POC Glucose 195 H 11/03/23 10:20: POC Glucose 100 Exam Physical Exam Const alert, oriented x3 and no apparent distress Psych mental status grossly normal, thought process normal, cooperative, affect normal and speech normal Nursing Assessment and Debridement Post-Debridement Measurements and Additional Note: Post-Debridement Measurements/Treatment - Nurse 1 - General Ulcer Assessment Start: 10/26/23 10:49 Freq: Status: Active Protocol: DEDRICK Activity Type Activity Date Activity User E-sign Co-sign Detail Recorded Client Recorded Date Recorded By Document 11/02/23 08:50 TOMAS [id number] 11/02/23 08:52 RB 11/02/23 08:50 - Today's Visit Information Type of service Follow-up Visit (Physician/CRM BUSINESS ANALYST ) Arrival Mode Ambulatory Transfer Assistance None Patient Identification Verified (Name & Yes ) Patient Requires Transmission-Based No Precautions Finger Stick Blood Sugar(mg/dl) (if 160 indicated): Blood Sugar Stated by Patient Height and Weight Body Mass Index (BMI) 34.3 BMI Classification Obese Vital Signs Temperature (97.8 F-99.1 F) 96.7 F L Temperature Source Temporal Pulse Rate (60-100) 86 Pulse Location Monitor Respiratory Rate (12-18) 18 Respiratory rate source Observation Blood Pressure (90/60-120/80) 144/69 H Blood Pressure Mean (mm Hg) 94 Source Monitor Position Sitting Blood Pressure Location Left Arm History Since Last Visit- (Skip if this is Patient's initial visit) Have you changed medications since your No last visit? Any new allergies or adverse reactions No Had a fall/change in ADL's that may No increase risk of falls Signs or symptoms of abuse and/or No neglect since last visit Have you been in the hospital since your No last visit? Has dressing in place as prescribed Yes Has compression in place as prescribed No Has offloadiing in place as prescribed No Experienced any changes in pain level or No management Pain Scale: 0-10 Numeric Is Patient Pain Free? Yes WC - Nurse 1 - General Ulcer Measurement Start: 10/26/23 10:49 Freq: Status: Active Protocol: Activity Type Activity Date Activity User E-sign Co-sign Detail Recorded Client Recorded Date Recorded By Document 11/02/23 08:50 RB [id number] 11/02/23 08:52 RB 11/02/23 08:50 Wound Center Nurse 1 1. R FOOT PLANTAR LATERAL -Combined with other wound No -Current Size (cm) - Length 1.5 -Current Size (cm) - Width 1.5 -Current Size (cm) - Depth 0.2 -Total Square Cm 2.25 -Tunneling No -Undermining/Tunneling No -Circular Undermining No -Exudate Amt Medium -Exudate Type Serosanguineous -Wound Margin Distinct, Outline Attached -Granulation Amt Medium (34-66%) -Granulation Quality [place] -Slough/Fibrin Yes -Necrosis Amt Medium (34-66%) -Necrotic Tissue Type Adherent Slough -Structure Exposed N/A -Texture (Pema-wound Skin Appearance) Assessed,Callus -Moisture (Pema-wound Skin Appearance) Assessed -Color (Pema-wound Skin Appearance) Assessed -Temperature (Pema-wound Skin No Abnormality Appearance) (Pt Warm) -Tenderness on Palpation (Pema-wound No Skin Appearance) -Ulcer Cleansing Wound Cleanser -Foul Odor after Cleansing No -Anesthetic Used 5% Lidocaine Gel ENID - Nurse 2 - General Ulcer CM Notes Start: 10/26/23 10:49 Freq: Status: Active Protocol: Activity Type Activity Date Activity User E-sign Co-sign Detail Recorded Client Recorded Date Recorded By Document 11/02/23 08:55 [facility] [id number] 11/02/23 09:03 [facility] 11/02/23 08:55 Wound Center Nurse 2 -Time 08:55 -Correct Patient Yes -Correct Side, Site, Position Yes -Correct Procedure Yes -Procedure Performed Yes -Type of Procedure Debridement -Clinical Debridement Subcutaneous -Tissue Removed Subcutaneous -Post Debridement (cm) - Length 1.5 -Post Debridement (cm) - Width 1.3 -Post Debridement (cm) - Depth 0.1 -Total Square (Post) (cm) 1.95 -Area of Debridement (cm) - Length 1.5 -Area of Debridement (cm) - Width 1.3 -Total Square (Area) (cm) 1.95 -Tunneling No -Undermining/Tunneling No -Circular Undermining No -Wound/Ulcer Outcome Not Healed -Ulcer Cleansing Rinsed/ Irrigated with Saline -Foul Odor after Cleansing No -Bioengineered Tissue No -Bleeding Controlled with Pressure -Treatment Response Procedure Tolerated Well -Debridement - Subq, 1st 20sq cm Yes Pain Scale: 0-10 Numeric Is Patient Pain Free? Yes - Nurse 3 - General Ulcer D/C NN Start: 10/26/23 10:49 Freq: Status: Active Protocol: Activity Type Activity Date Activity User E-sign Co-sign Detail Recorded Client Recorded Date Recorded By Document 11/02/23 09:07 [facility] [id number] 11/02/23 09:08 [facility] 11/02/23 09:07 Wound Care Center Nurse 3 1. R FOOT PLANTAR LATERAL -Ulcer Cleansing Rinsed/ Irrigated with Saline -Foul Odor after Cleansing No -Other Dressing dakins moist gauze -Primary Dressing Covered/Secured with Dry Gauze & Roll Gauze, Secured with Tape Treatment Response Procedure Tolerated Well Pain Scale: 0-10 Numeric Is Patient Pain Free? 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 Qualified Code(s): E11.621 - Type 2 diabetes mellitus with foot ulcer; L97.509 - Non-pressure chronic ulcer of other part of unspecified foot with unspecified severity; Z79.4 - correction (current) use of insulin (2) Osteomyelitis: CODE(S): M86.9 - Osteomyelitis, unspecified QUALIFIERS: Osteomyelitis type: unspecified type Osteomyelitis location: foot Laterality: right Qualified Code(s): M86.9 - Osteomyelitis, unspecified (3) Non-pressure chronic 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: CODE(S): L97.513 - Non-pressure chronic 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 (4) Type 2 diabetes mellitus: CODE(S): E11.9 - Type 2 diabetes mellitus without complications QUALIFIERS: Diabetes mellitus care home insulin use: with care home use Diabetes mellitus complication status: with hyperglycemia Qualified Code(s): E11.65 - Type 2 diabetes mellitus with hyperglycemia; Z79.4 - correction (current) use of insulin (5) Peripheral arterial disease: CODE(S): I73.9 - Peripheral vascular disease, unspecified (6) Diabetic foot ulcer with osteomyelitis: CODE(S): E11.621 - Type 2 diabetes mellitus with foot ulcer; E11.69 - Type 2 diabetes mellitus with other specified complication; L97.509 - Non-pressure chronic ulcer of other part of unspecified foot with unspecified severity; M86.9 - Osteomyelitis, unspecified (7) Diabetes mellitus with diabetic polyneuropathy: CODE(S): E11.42 - Type 2 diabetes mellitus with diabetic polyneuropathy QUALIFIERS: Diabetes mellitus type: type 2 Diabetes mellitus petroleum terminal plant operator insulin use: with care home use Qualified Code(s): E11.42 - Type 2 diabetes mellitus with diabetic polyneuropathy; Z79.4 - 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 This note was generated with Iwebalize dictation software. It may contain incorrect words, spelling, and punctuation that were not noted in checking the note before signing.
[2023-11-06 08:32] LABS: Bedside Glucose 150 mg/dL (74-106)
--- NOTE | 2023-11-06 09:23 | PCM.HBO.PN ---
History of Present Illness Date of Service: 11/06/23 Chief Complaint: Right foot ulceration History of Wound: Ms. Sawyer is a 63-year-old currently being seen at the wound center for right foot ulcer. History of diabetes mellitus type 2 and following recent MRI, diagnosed with osteomyelitis. Per documentation, Mayes stage III. Due to history of diabetic foot wound and osteomyelitis, she has been recommended for hyperbaric oxygen therapy. Comorbidities include coronary artery disease status post CABG. No known history of recurrent ear infections, COPD or tobacco use. She also denies any seizure episodes. She does however report variable blood glucose readings with frequent low blood glucose readings. Currently on insulin. Has continuous glucose monitoring. Recently had an EKG and a chest x-ray done with no acute concerns. She has no acute concerns at this time. Progress of Wound: Progress: Today represents her 3rd of 30 planned HBO treatment sessions. Tolerance: Hyperbaric oxygen treatment was administered as per the facility's protocol at 2.0 PILO in 100% oxygen for 90 minutes without air breaks. The patient tolerated hyperbaric oxygen therapy without complaints or complications. Pre and post blood glucose levels as documented. Upon emergence from the hyperbaric chamber, her vitals remained stable and she was discharged in stable condition. Subjective Subjective Reports that she's feeling well today. No pain in her ears. She's happy with the treatment thus far. Objective Data Objective Data Vital Signs: Vital Signs Temp Pulse Resp BP 97.7 F L 87 14 169/69 H 11/03/23 10:33 11/03/23 10:33 11/03/23 10:33 11/03/23 10:33 Weight: 200 lb Body Mass Index (BMI) 34.3 Lab / Micro Data Labs: Laboratory Results - last 24 hr 11/06/23 08:14: POC Glucose 150 H Exam Physical Exam Narrative Right foot ulcer near the 5th metatarsal head seen and examined. No signs of infection. Beefy red granulation tissue present. Const alert and oriented x3 HEENT normocephalic, EAC's normal and TM's normal bilaterally Eyes EOMs intact bilaterally Neck full ROM Chest inspection of chest normal Resp normal respiratory effort, no use of accessory muscles and clear to auscultation bilaterally Cardio regular rate, regular rhythm, S1 normal heart sound, S2 normal heart sound, no murmurs, no rub, no gallops and no clicks Charges/Coding Wound Center CF Procedures HBO Supervision: [id number] Hyperbaric Oxygen; supervision Assessment/Plan Assessment/Plan (1) Type 2 diabetes mellitus with foot ulcer: CODE(S): E11.621 - Type 2 diabetes mellitus with foot ulcer; L97.509 - Non-pressure chronic ulcer of other part of unspecified foot with unspecified severity QUALIFIERS: Diabetes mellitus truck terminal manager insulin use: with senior living use Qualified Code(s): E11.621 - Type 2 diabetes mellitus with foot ulcer; L97.509 - Non-pressure chronic ulcer of other part of unspecified foot with unspecified severity; Z79.4 - long-term (current) use of insulin (2) Osteomyelitis: CODE(S): M86.9 - Osteomyelitis, unspecified QUALIFIERS: Laterality: right Osteomyelitis location: foot Osteomyelitis type: unspecified type Qualified Code(s): M86.9 - Osteomyelitis, unspecified (3) Non-pressure chronic 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: CODE(S): L97.513 - Non-pressure chronic 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 (4) Type 2 diabetes mellitus: CODE(S): E11.9 - Type 2 diabetes mellitus without complications QUALIFIERS: Diabetes mellitus complication status: with hyperglycemia Diabetes mellitus senior living insulin use: with senior living use Qualified Code(s): E11.65 - Type 2 diabetes mellitus with hyperglycemia; Z79.4 - long-term (current) use of insulin (5) Peripheral arterial disease: CODE(S): I73.9 - Peripheral vascular disease, unspecified (6) Diabetic foot ulcer with osteomyelitis: CODE(S): E11.621 - Type 2 diabetes mellitus with foot ulcer; E11.69 - Type 2 diabetes mellitus with other specified complication; L97.509 - Non-pressure chronic ulcer of other part of unspecified foot with unspecified severity; M86.9 - Osteomyelitis, unspecified (7) Diabetes mellitus with diabetic polyneuropathy: CODE(S): E11.42 - Type 2 diabetes mellitus with diabetic polyneuropathy QUALIFIERS: Diabetes mellitus senior living insulin use: with truck terminal manager use Diabetes mellitus type: type 2 Qualified Code(s): E11.42 - Type 2 diabetes mellitus with diabetic polyneuropathy; Z79.4 - long-term (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
[2023-11-06 10:45] LABS: Bedside Glucose 166 mg/dL (74-106)
[2023-11-06 11:06] VITALS: BP 166/89; BP 166/93; PULSE 76; PULSE 93; RESP 15; TEMP 36.8; TEMP 37
[2023-11-07 08:45] LABS: Bedside Glucose 193 mg/dL (74-106)
--- NOTE | 2023-11-07 10:27 | PCM.HBO.PN ---
History of Present Illness Date of Service: 11/07/23 Chief Complaint: Right foot ulceration History of Wound: Ms. Sawyer is a 63-year-old currently being seen at the wound center for right foot ulcer. History of diabetes mellitus type 2 and following recent MRI, diagnosed with osteomyelitis. Per documentation, Mayes stage III. Due to history of diabetic foot wound and osteomyelitis, she has been recommended for hyperbaric oxygen therapy. Comorbidities include coronary artery disease status post CABG. No known history of recurrent ear infections, COPD or tobacco use. She also denies any seizure episodes. She does however report variable blood glucose readings with frequent low blood glucose readings. Currently on insulin. Has continuous glucose monitoring. Recently had an EKG and a chest x-ray done with no acute concerns. She has no acute concerns at this time. Progress of Wound: Progress: Today represents her 4th of 30 planned HBO treatment sessions. Tolerance: Hyperbaric oxygen treatment was administered as per the facility's protocol at 2.0 PILO in 100% oxygen for 90 minutes without air breaks. The patient tolerated hyperbaric oxygen therapy without complaints or complications. Pre and post blood glucose levels as documented. Upon emergence from the hyperbaric chamber, her vitals remained stable and she was discharged in stable condition. Subjective Subjective Doing well this morning. No ear pain Objective Data Objective Data Vital Signs: Vital Signs Temp Pulse Resp BP 98.6 F 93 15 166/93 H 11/06/23 11:06 11/06/23 11:06 11/06/23 11:06 11/06/23 11:06 Weight: 200 lb Body Mass Index (BMI) 34.3 Lab / Micro Data Labs: Laboratory Results - last 24 hr 11/06/23 10:28: POC Glucose 166 H 11/07/23 08:06: POC Glucose 193 H Exam Physical Exam Const alert and oriented x3 HEENT normocephalic, EAC's normal and TM's normal bilaterally Eyes EOMs intact bilaterally Neck full ROM Chest inspection of chest normal Resp normal respiratory effort, no use of accessory muscles and clear to auscultation bilaterally Cardio regular rate, regular rhythm, S1 normal heart sound, S2 normal heart sound, no murmurs, no rub, no gallops and no clicks Charges/Coding Wound Center [facility] Procedures HBO Supervision: [id number] Hyperbaric Oxygen; supervision (4th treatment ) Assessment/Plan Assessment/Plan (1) Type 2 diabetes mellitus with foot ulcer: CODE(S): E11.621 - Type 2 diabetes mellitus with foot ulcer; L97.509 - Non-pressure chronic ulcer of other part of unspecified foot with unspecified severity QUALIFIERS: Diabetes mellitus halfway insulin use: with halfway use Qualified Code(s): E11.621 - Type 2 diabetes mellitus with foot ulcer; L97.509 - Non-pressure chronic ulcer of other part of unspecified foot with unspecified severity; Z79.4 - director long term care (current) use of insulin (2) Osteomyelitis: CODE(S): M86.9 - Osteomyelitis, unspecified QUALIFIERS: Osteomyelitis type: unspecified type Osteomyelitis location: foot Laterality: right Qualified Code(s): M86.9 - Osteomyelitis, unspecified (3) Non-pressure chronic 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: CODE(S): L97.513 - Non-pressure chronic 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 (4) Type 2 diabetes mellitus: CODE(S): E11.9 - Type 2 diabetes mellitus without complications QUALIFIERS: Diabetes mellitus local 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 insulin use: with halfway use Diabetes mellitus complication status: with hyperglycemia Qualified Code(s): E11.65 - Type 2 diabetes mellitus with hyperglycemia; Z79.4 - jail (current) use of insulin (5) Peripheral arterial disease: CODE(S): I73.9 - Peripheral vascular disease, unspecified (6) Diabetic foot ulcer with osteomyelitis: CODE(S): E11.621 - Type 2 diabetes mellitus with foot ulcer; E11.69 - Type 2 diabetes mellitus with other specified complication; L97.509 - Non-pressure chronic ulcer of other part of unspecified foot with unspecified severity; M86.9 - Osteomyelitis, unspecified (7) Diabetes mellitus with diabetic polyneuropathy: CODE(S): E11.42 - Type 2 diabetes mellitus with diabetic polyneuropathy QUALIFIERS: Diabetes mellitus type: type 2 Diabetes mellitus halfway insulin use: with local 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 use Qualified Code(s): E11.42 - Type 2 diabetes mellitus with diabetic polyneuropathy; Z79.4 - jail (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
[2023-11-07 10:42] LABS: Bedside Glucose 149 mg/dL (74-106)
[2023-11-07 10:49] VITALS: BP 161/77; BP 181/94; PULSE 74; PULSE 85; RESP 16; TEMP 36.3; TEMP 36.6
[2023-11-08 08:25] LABS: Bedside Glucose 198 mg/dL (74-106)
[2023-11-08 10:36] VITALS: BP 165/86; BP 182/98; PULSE 75; PULSE 80; RESP 15; RESP 16; TEMP 36.1; TEMP 36.8
[2023-11-08 10:49] LABS: Bedside Glucose 170 mg/dL (74-106)
--- NOTE | 2023-11-08 12:44 | PCM.HBO.PN ---
History of Present Illness Date of Service: 11/08/23 Chief Complaint: Right foot ulceration History of Wound: Ms. Sawyer is a 63-year-old currently being seen at the wound center for right foot ulcer. History of diabetes mellitus type 2 and following recent MRI, diagnosed with osteomyelitis. Per documentation, Mayes stage III. Due to history of diabetic foot wound and osteomyelitis, she has been recommended for hyperbaric oxygen therapy. Comorbidities include coronary artery disease status post CABG. No known history of recurrent ear infections, COPD or tobacco use. She also denies any seizure episodes. She does however report variable blood glucose readings with frequent low blood glucose readings. Currently on insulin. Has continuous glucose monitoring. Recently had an EKG and a chest x-ray done with no acute concerns. She has no acute concerns at this time. Progress of Wound: Progress: Today represents her 5th of 30 planned HBO treatment sessions. Tolerance: Hyperbaric oxygen treatment was administered as per the facility's protocol at 2.0 PILO in 100% oxygen for 90 minutes without air breaks. The patient tolerated hyperbaric oxygen therapy without complaints or complications. Pre and post blood glucose levels as documented. Upon emergence from the hyperbaric chamber, her vitals remained stable and she was discharged in stable condition. Subjective Subjective Voiced no concerns did well and vital signs were stable Objective Data Objective Data Vital signs stable patient did well no concerns Vital Signs: Vital Signs Temp Pulse Resp BP 96.9 F L 80 16 182/98 H 11/08/23 10:36 11/08/23 10:36 11/08/23 10:36 11/08/23 10:36 Weight: 200 lb Body Mass Index (BMI) 34.3 Lab / Micro Data Labs: Laboratory Results - last 24 hr 11/08/23 08:08: POC Glucose 198 H 11/08/23 10:18: POC Glucose 170 H Exam Physical Exam Const alert and oriented x3 HEENT normocephalic, EAC's normal and TM's normal bilaterally Eyes EOMs intact bilaterally Neck full ROM Chest inspection of chest normal Resp normal respiratory effort, no use of accessory muscles and clear to auscultation bilaterally Cardio regular rate, regular rhythm, S1 normal heart sound, S2 normal heart sound, no murmurs, no rub, no gallops and no clicks Assessment/Plan Assessment/Plan (1) Type 2 diabetes mellitus with foot ulcer: CODE(S): E11.621 - Type 2 diabetes mellitus with foot ulcer; L97.509 - Non-pressure chronic ulcer of other part of unspecified foot with unspecified severity QUALIFIERS: Diabetes mellitus long-term insulin use: with intermediate designer use Qualified Code(s): E11.621 - Type 2 diabetes mellitus with foot ulcer; L97.509 - Non-pressure chronic ulcer of other part of unspecified foot with unspecified severity; Z79.4 - residential (current) use of insulin (2) Osteomyelitis: CODE(S): M86.9 - Osteomyelitis, unspecified QUALIFIERS: Osteomyelitis type: unspecified type Osteomyelitis location: foot Laterality: right Qualified Code(s): M86.9 - Osteomyelitis, unspecified (3) Non-pressure chronic 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: CODE(S): L97.513 - Non-pressure chronic 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 (4) Type 2 diabetes mellitus: CODE(S): E11.9 - Type 2 diabetes mellitus without complications QUALIFIERS: Diabetes mellitus intermediate designer insulin use: with intermediate designer use Diabetes mellitus complication status: with hyperglycemia Qualified Code(s): E11.65 - Type 2 diabetes mellitus with hyperglycemia; Z79.4 - residential (current) use of insulin (5) Peripheral arterial disease: CODE(S): I73.9 - Peripheral vascular disease, unspecified (6) Diabetic foot ulcer with osteomyelitis: CODE(S): E11.621 - Type 2 diabetes mellitus with foot ulcer; E11.69 - Type 2 diabetes mellitus with other specified complication; L97.509 - Non-pressure chronic ulcer of other part of unspecified foot with unspecified severity; M86.9 - Osteomyelitis, unspecified (7) Diabetes mellitus with diabetic polyneuropathy: CODE(S): E11.42 - Type 2 diabetes mellitus with diabetic polyneuropathy QUALIFIERS: Diabetes mellitus type: type 2 Diabetes mellitus intermediate designer insulin use: with intermediate designer use Qualified Code(s): E11.42 - Type 2 diabetes mellitus with diabetic polyneuropathy; Z79.4 - rodent exterminator (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
[2023-11-09 08:23] LABS: Bedside Glucose 166 mg/dL (74-106)
--- NOTE | 2023-11-09 08:50 | PCM.HBO.PN ---
History of Present Illness Date of Service: 11/09/23 Chief Complaint: Right foot ulceration History of Wound: Ms. Sawyer is a 63-year-old currently being seen at the wound center for right foot ulcer. History of diabetes mellitus type 2 and following recent MRI, diagnosed with osteomyelitis. Per documentation, Mayes stage III. Due to history of diabetic foot wound and osteomyelitis, she has been recommended for hyperbaric oxygen therapy. Comorbidities include coronary artery disease status post CABG. No known history of recurrent ear infections, COPD or tobacco use. She also denies any seizure episodes. She does however report variable blood glucose readings with frequent low blood glucose readings. Currently on insulin. Has continuous glucose monitoring. Recently had an EKG and a chest x-ray done with no acute concerns. She has no acute concerns at this time. Progress of Wound: Progress: Today represents her 6th of 30 planned HBO treatment sessions. Tolerance: Hyperbaric oxygen treatment was administered as per the facility's protocol at 2.0 PILO in 100% oxygen for 90 minutes without air breaks. The patient tolerated hyperbaric oxygen therapy without complaints or complications. Pre and post blood glucose levels as documented. Upon emergence from the hyperbaric chamber, her vitals remained stable and she was discharged in stable condition. Objective Data Objective Data Vital Signs: Vital Signs Temp Pulse Resp BP 96.9 F L 80 16 182/98 H 11/08/23 10:36 11/08/23 10:36 11/08/23 10:36 11/08/23 10:36 Weight: 200 lb Body Mass Index (BMI) 34.3 Lab / Micro Data Labs: Laboratory Results - last 24 hr 11/08/23 10:18: POC Glucose 170 H 11/09/23 08:06: POC Glucose 166 H Exam Physical Exam Const alert, oriented x3 and no apparent distress General Appearance: cooperative HEENT normocephalic and TM's normal bilaterally Eyes General Eye: normal appearance of both eyes Resp normal respiratory effort, no use of accessory muscles and clear to auscultation bilaterally Effort and Inspection: able to speak in complete sentences Cardio regular rate and regular rhythm Psych affect normal Charges/Coding Wound Center CF Procedures HBO Supervision: [id number] Hyperbaric Oxygen; supervision Assessment/Plan Assessment/Plan (1) Osteomyelitis: CODE(S): M86.9 - Osteomyelitis, unspecified QUALIFIERS: Laterality: right Osteomyelitis location: foot Osteomyelitis type: unspecified type Qualified Code(s): M86.9 - Osteomyelitis, unspecified (2) Type 2 diabetes mellitus with foot ulcer: CODE(S): E11.621 - Type 2 diabetes mellitus with foot ulcer; L97.509 - Non-pressure chronic ulcer of other part of unspecified foot with unspecified severity QUALIFIERS: Diabetes mellitus terminal system operator insulin use: with terminal system operator use Qualified Code(s): E11.621 - Type 2 diabetes mellitus with foot ulcer; L97.509 - Non-pressure chronic ulcer of other part of unspecified foot with unspecified severity; Z79.4 - terminal superintendent (current) use of insulin (3) Non-pressure chronic 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: CODE(S): L97.513 - Non-pressure chronic 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 (4) Type 2 diabetes mellitus: CODE(S): E11.9 - Type 2 diabetes mellitus without complications QUALIFIERS: Diabetes mellitus complication status: with hyperglycemia Diabetes mellitus terminal system operator insulin use: with halfway use Qualified Code(s): E11.65 - Type 2 diabetes mellitus with hyperglycemia; Z79.4 - terminal superintendent (current) use of insulin (5) Peripheral arterial disease: CODE(S): I73.9 - Peripheral vascular disease, unspecified (6) Diabetic foot ulcer with osteomyelitis: CODE(S): E11.621 - Type 2 diabetes mellitus with foot ulcer; E11.69 - Type 2 diabetes mellitus with other specified complication; L97.509 - Non-pressure chronic ulcer of other part of unspecified foot with unspecified severity; M86.9 - Osteomyelitis, unspecified (7) Diabetes mellitus with diabetic polyneuropathy: CODE(S): E11.42 - Type 2 diabetes mellitus with diabetic polyneuropathy QUALIFIERS: Diabetes mellitus terminal system operator insulin use: with terminal system operator use Diabetes mellitus type: type 2 Qualified Code(s): E11.42 - Type 2 diabetes mellitus with diabetic polyneuropathy; Z79.4 - terminal superintendent (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
[2023-11-09 10:40] LABS: Bedside Glucose 131 mg/dL (74-106)
[2023-11-09 10:50] VITALS: BP 159/84; BP 163/73; PULSE 76; PULSE 87; RESP 14; RESP 15; TEMP 36.2; TEMP 36.9
--- NOTE | 2023-11-09 10:53 | PCM.WC.PN ---
History of Present Illness Date of Service: 11/09/23 Chief Complaint: Right foot ulceration History of Wound: Ms. Sawyer is a 63-year-old currently being seen at the wound center for right foot ulcer. History of diabetes mellitus type 2 and following recent MRI, diagnosed with osteomyelitis. Per documentation, Mayes stage III. Due to history of diabetic foot wound and osteomyelitis, she has been recommended for hyperbaric oxygen therapy. Comorbidities include coronary artery disease status post CABG. No known history of recurrent ear infections, COPD or tobacco use. She also denies any seizure episodes. She does however report variable blood glucose readings with frequent low blood glucose readings. Currently on insulin. Has continuous glucose monitoring. Recently had an EKG and a chest x-ray done with no acute concerns. She has no acute concerns at this time. Progress of Wound: Progress: Today represents her 6th of 30 planned HBO treatment sessions. Tolerance: Hyperbaric oxygen treatment was administered as per the facility's protocol at 2.0 PILO in 100% oxygen for 90 minutes without air breaks. The patient tolerated hyperbaric oxygen therapy without complaints or complications. Pre and post blood glucose levels as documented. Upon emergence from the hyperbaric chamber, her vitals remained stable and she was discharged in stable condition. Subjective Subjective This is a 63-year-old female who follows up to the wound center for continued care of a plantar lateral fifth metatarsal head ulceration of the right foot. She states she is continue to change the dressing daily with Dakin's. She continues oral antibiotic as instructed. She has undergone 5 hyperbaric dives with good tolerance. Continues offloading and surgical shoe with fifth ray cut out. Denies constitutional symptoms. Denies further complaints. Objective Data Objective Data Vital Signs: Vital Signs Temp Pulse Resp BP 96.9 F L 80 16 182/98 H 11/08/23 10:36 11/08/23 10:36 11/08/23 10:36 11/08/23 10:36 Weight: 90.718 kg Body Mass Index (BMI) 34.3 Lab / Micro Data Labs: Laboratory Results - last 24 hr 11/09/23 08:06: POC Glucose 166 H 11/09/23 10:22: POC Glucose 131 H Physical Exam Const alert, oriented x3 and no apparent distress General Appearance: cooperative HEENT normocephalic Eyes General Eye: normal appearance of both eyes Neck General: normal visual inspection Lymph Lymphatic: no lymphadenopathy noted and no lymphedema noted Resp normal respiratory effort Cardio regular rate and regular rhythm Extremity normal capillary refill, no joint enlargement, no calf tenderness and no pedal edema Extremity Narrative: Right lower extremity: Vascular: DP and PT pulses nonpalpable. Doppler demonstrates monophasic DP and PT. CFT is less than 5 seconds to the digits. Hair growth is absent to digits. Normal temperature gradient is noted. No increased temperature about the ulcerative site. Neurologic: Protective sensation is absent consistent with diabetic peripheral polyneuropathy. Musculoskeletal: Muscle strength 5 of 5 age-appropriate. 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 Decreased range of motion of the first metatarsophalangeal joint without pain or crepitus. Decreased range of motion of the ankle joint in dorsiflexion with the knee extended without pain or crepitus. Dermatologic: There is a full-thickness ulceration noted at the plantar lateral aspect of the fifth metatarsal head tailor's bunion deformity with surrounding hyperkeratosis. Granular ulcerative bed. Predebridement ulceration measures 1.4 cm x 1.3 cm. Ulceration does not probe to bone. No palpable fluctuance/bogginess. No visible abscess formation. No purulent drainage. No lymphangitic streaking or soft tissue crepitus noted. Skin no rashes or lesions noted, skin turgor normal and no jaundice Neuro moves all extremities Debridement Note Debridement Note Wound debrided: Subfifth metatarsal head right foot Laterality: Right Wound Grade/Stage: Mayes stage III Type of Debridement: Excisional debridement Anesthesia Used: 5% Lidocaine Gel Depth: Down to and including healthy tissue and in the subcutaneous layer Percentage of wound debrided: 100 Instrument Used: 5mm curette Tissue Removed: Fibrous, devitalized subcutaneous, biofilm, slough Severity: Fat Layer Exposed Amount of bleeding with debridement: Mild Bleeding Controlled with: Compression and gauze Patient tolerated procedure: Patient tolerated procedure well Post-Debridement Measurements and Additional Note: Post-Debridement Measurements/Treatment WC - Nurse 1 - General Ulcer Assessment Start: 10/26/23 10:49 Freq: Status: Active Protocol: ENID.LOWEXT Activity Type Activity Date Activity User E-sign Co-sign Detail Recorded Client Recorded Date Recorded By Document 10/26/23 10:49 CP [id number] 10/26/23 10:58 CP Document 11/02/23 08:50 RB [id number] 11/02/23 08:52 RB 10/26/23 11/02/23 10:49 08:50 - Today's Visit Information Type of service Follow-up Visit Follow-up Visit (Physician/ELECTRONIC INSTRUMENT TRADES WORKER (Physician/ELECTRONIC INSTRUMENT TRADES WORKER ) ) Arrival Mode Ambulatory Ambulatory Transfer Assistance None Patient Identification Verified (Name & Yes Yes ) Patient Requires Transmission-Based No No Precautions Finger Stick Blood Sugar(mg/dl) (if 160 indicated): Blood Sugar Stated by Patient Height and Weight Body Mass Index (BMI) 34.3 34.3 BMI Classification Obese Obese Vital Signs Temperature (97.8 F-99.1 F) 98.4 F 96.7 F L Temperature Source Temporal Temporal Pulse Rate (60-100) 100 86 Pulse Location Monitor Monitor Respiratory Rate (12-18) 16 18 Respiratory rate source Observation Observation Blood Pressure (90/60-120/80) 149/77 H 144/69 H Blood Pressure Mean (mm Hg) 101 94 Source Monitor Monitor Position Sitting Sitting Blood Pressure Location Left Forearm Left Arm History Since Last Visit- (Skip if this is Patient's initial visit) Have you changed medications since your No No last visit? Any new allergies or adverse reactions No No Had a fall/change in ADL's that may No No increase risk of falls Signs or symptoms of abuse and/or No No neglect since last visit Have you been in the hospital since your No No last visit? Has dressing in place as prescribed Yes Yes Has compression in place as prescribed N/A No Has offloadiing in place as prescribed Yes No Experienced any changes in pain level or No management Right Footwear Surgical Shoe with pressure relief insole Pain Scale: 0-10 Numeric Is Patient Pain Free? Yes Yes - Nurse 1 - General Ulcer Measurement Start: 10/26/23 10:49 Freq: Status: Active Protocol: Activity Type Activity Date Activity User E-sign Co-sign Detail Recorded Client Recorded Date Recorded By Document 10/26/23 10:49 CP [id number] 10/26/23 10:58 CP Document 11/02/23 08:50 RB [id number] 11/02/23 08:52 RB 10/26/23 11/02/23 10:49 08:50 Wound Center Nurse 1 1. R FOOT PLANTAR LATERAL -Combined with other wound No -Current Size (cm) - Length 1.2 1.5 -Current Size (cm) - Width 1 1.5 -Current Size (cm) - Depth 0.3 0.2 -Total Square Cm 1.2 2.25 -Tunneling No No -Undermining/Tunneling No No -Circular Undermining No -Exudate Amt Small Medium -Exudate Type Serosanguineous Serosanguineous -Wound Margin Thickened & Distinct, Rolled Under Outline Attached -Granulation Amt Large (67-100%) Medium (34-66%) -Granulation Quality [place] -Slough/Fibrin Yes Yes -Necrosis Amt Small (1-33%) Medium (34-66%) -Necrotic Tissue Type Adherent Slough Adherent Slough -Structure Exposed N/A N/A -Texture (Pema-wound Skin Appearance) Callus Assessed,Callus -Moisture (Pema-wound Skin Appearance) No Abnormality Assessed -Color (Pema-wound Skin Appearance) No Abnormality Assessed -Temperature (Pema-wound Skin No Abnormality No Abnormality Appearance) (Pt Warm) (Pt Warm) -Tenderness on Palpation (Pema-wound No No Skin Appearance) -Ulcer Cleansing Rinsed/ Wound Cleanser Irrigated with Saline -Foul Odor after Cleansing No -Anesthetic Used 5% Lidocaine 5% Lidocaine Gel Gel WC - Nurse 2 - General Ulcer CM Notes Start: 10/26/23 10:49 Freq: Status: Active Protocol: Activity Type Activity Date Activity User E-sign Co-sign Detail Recorded Client Recorded Date Recorded By Document 10/26/23 11:12 [facility] [id number] 10/26/23 11:17 [facility] Document 11/02/23 08:55 [facility] [id number] 11/02/23 09:03 [facility] 10/26/23 11/02/23 11:12 08:55 Wound Center Nurse 2 1. R FOOT PLANTAR LATERAL -Time 11:12 08:55 -Correct Patient Yes Yes -Correct Side, Site, Position Yes Yes -Correct Procedure Yes Yes -Procedure Performed Yes Yes -Type of Procedure Debridement Debridement -Clinical Debridement Subcutaneous Subcutaneous -Tissue Removed Subcutaneous Subcutaneous -Post Debridement (cm) - Length 1.2 1.5 -Post Debridement (cm) - Width 1.2 1.3 -Post Debridement (cm) - Depth 0.1 0.1 -Total Square (Post) (cm) 1.44 1.95 -Area of Debridement (cm) - Length 1.2 1.5 -Area of Debridement (cm) - Width 1.2 1.3 -Total Square (Area) (cm) 1.44 1.95 -Tunneling No No -Undermining/Tunneling No No -Circular Undermining No No -Wound/Ulcer Outcome Not Healed Not Healed -Ulcer Cleansing Rinsed/ Rinsed/ Irrigated with Irrigated with Saline Saline -Foul Odor after Cleansing No No -Bioengineered Tissue No No -Bleeding Controlled with Pressure Pressure -Treatment Response Procedure Procedure Tolerated Well Tolerated Well -Debridement - Subq, 1st 20sq cm Yes Yes Pain Scale: 0-10 Numeric Is Patient Pain Free? Yes Yes - Nurse 3 - General Ulcer D/C NN Start: 10/26/23 10:49 Freq: Status: Active Protocol: Activity Type Activity Date Activity User E-sign Co-sign Detail Recorded Client Recorded Date Recorded By Document 10/26/23 11:30 DL [id number] 10/26/23 11:31 DL Document 11/02/23 09:07 [facility] [id number] 11/02/23 09:08 [facility] 10/26/23 11/02/23 11:30 09:07 Wound Care Center Nurse 3 1. R FOOT PLANTAR LATERAL -Ulcer Cleansing Rinsed/ Rinsed/ Irrigated with Irrigated with Saline Saline -Foul Odor after Cleansing No No -Other Dressing dakins dakins moist gauze -Primary Dressing Covered/Secured with Dry Gauze & Dry Gauze & Roll Gauze, Roll Gauze, Secured with Secured with Tape Tape Treatment Response Procedure Procedure Tolerated Well Tolerated Well Pain Scale: 0-10 Numeric Is Patient Pain Free? Yes Yes - Visit Discharge Discharge Condition Stable Stable Ambulatory Status Ambulatory Ambulatory Transportation Private Auto Private Auto Assessment/Plan Assessment/Plan (1) Non-pressure chronic 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: CODE(S): L97.513 - Non-pressure chronic 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 (2) Diabetes mellitus with diabetic polyneuropathy: CODE(S): E11.42 - Type 2 diabetes mellitus with diabetic polyneuropathy QUALIFIERS: Diabetes mellitus retirement insulin use: with retirement use Diabetes mellitus type: type 2 Qualified Code(s): E11.42 - Type 2 diabetes mellitus with diabetic polyneuropathy; 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 (3) Type 2 diabetes mellitus with foot ulcer: CODE(S): E11.621 - Type 2 diabetes mellitus with foot ulcer; L97.509 - Non-pressure chronic ulcer of other part of unspecified foot with unspecified severity QUALIFIERS: Diabetes mellitus retirement insulin use: with intermodal customer service use Qualified Code(s): E11.621 - Type 2 diabetes mellitus with foot ulcer; L97.509 - Non-pressure chronic ulcer of other part of unspecified foot with unspecified severity; Z79.4 - [facility] (current) use of insulin (4) Hallux valgus of right foot: CODE(S): M20.11 - Hallux valgus (acquired), right foot (5) Tailor's bunion of right foot: CODE(S): M21.621 - Bunionette of right foot (6) Osteomyelitis: CODE(S): M86.9 - Osteomyelitis, unspecified QUALIFIERS: Laterality: right Osteomyelitis location: foot Osteomyelitis type: unspecified type Qualified Code(s): M86.9 - Osteomyelitis, unspecified (7) Peripheral arterial disease: CODE(S): I73.9 - Peripheral vascular disease, unspecified PLAN: Plan Patient seen and evaluated I have reviewed her previous note on 09/25/2023 from the [facility] and patient was placed on 10-day oral doxycycline with stop date of 10/05/2023. I have also reviewed imaging from 09/25/2023 demonstrating the subtle erosive change at the plantar lateral aspect of the fifth metatarsal which is questionable for osteomyelitis. Cultures were obtained of the wound. Cultures demonstrate: Providencia rettgeri, Streptococcus agalactiae (B), Streptococcus mitis, gram-negative carla, rare Pasteurella canis, Prevotella bivia, Fusobacterium nucleatum. She was prescribed continued course of oral doxycycline 100 mg twice daily x 14 days (stop date 10/26/2023) and oral Levofloxacin 750 mg daily x 14 days (stop date 10/26/2023) Predebridement measurement 1.4 cm x 1.3 cm Ulceration was debrided as noted in the clinical panel above. Postdebridement measurement 1.5 cm x 1.4 cm x 0.2 cm. Ulceration does not probe to bone and is granulating in well. Lianet applied to the wound base and dressed with dry sterile dressing. She was instructed on changing dressing daily. Surgical offloading shoe was given with fifth ray cut out for continued offloading. Ulceration demonstrates slight increase in size versus previous visit but depth has decreased this week. Discussed applying for advanced wound care product, EpiFix for application. Discussed her MRI from 10/05/2023 demonstrates focal marrow edema of the lateral aspect of the fifth metatarsal head, series 7 image 13 with overlying soft tissue swelling. Radiology states findings consistent with osteomyelitis. I do feel upon review that there is periostitis secondary to infection at the plantar lateral aspect but complete destruction is not visualized. Overall wound is improving with Dakin's and oral antibiotics. I have discussed options with her of both surgical and conservative. Discussed surgical options include amputation of the fifth metatarsal head and debridement of necrotic tissue. Discussed conservatively to continue the Dakin's with oral antibiotics and clearance for HBO therapy. Patient would like to try to continue the oral antibiotics with the HBO therapy as she does feel she can heal. I reviewed her labs for HBO clearance performed 10/13/23. WBC 8.9; Hgb 12.6; Hct 39.3; AST 16; ALT 15; CRP 9.56; albumin 3.0; prealbumin 18; sodium 139; potassium 3.8; chloride 101; CO2 30.0; BUN 19;Cr 0.96; glucose 145; HgbA1c 8.2%. She did see Dr. Garsia for clearance and has been cleared for HBO dives. She has started dives and will continue. She is tolerating dives well. Venous studies 10/13/23: Negative for acute DVT. Deep veins bilateral lower extremities patent and compressible segmentally. Positive reflux left saphenofemoral junction. LEAS: Right GARCÍA 0.87, moderate arterial insufficiency; Doppler and PVR waveforms demonstrate infrapopliteal disease. Left GARCÍA 0.41, severe arterial insufficiency. Doppler/PVR waveforms reveal distal SFA/popliteal and infrapopliteal disease. Patient will continue follow-up with Dr. Figueroa, vascular surgery. Discussed continuing to lower blood sugar as sugar today was 200 mg/dL. Last A1c was 9.0%, recently down to 8.2%. She was encouraged for continued reduction. Discussed proper diabetic diet to aid in reduction of glucose and striving for A1c of under 7% to optimize healing. Patient is understanding of this. Discussed adequate protein to aid in wound healing. Tyson supplementation was also recommended. Discussed signs and symptoms of infection. Discussed that if she notices increasing redness about the ulcerative site that moves to on top of the foot and up the leg, any purulent drainage from the ulcerative site, increasing foul odor, or if she experiences fever greater than 101 degree accompanied by nausea, vomiting, chills that these are signs of a progressing infection and she should report to the ED for IV antibiotics and further evaluation. She is understanding of this today. The following work up and care recommendations were made: Dressing: Lianet and dry sterile dressing she is recommended to change dressing daily Wash: Soap and water. Pat area dry. Tissue growth optimization: Lianet Offload: Surgical shoe with fifth ray cut out Vascular: Nonpalpable DP and PT pulses. LEAS were ordered 10/05/2023, awaiting results. Edema: No pedal edema noted Infection: Possible osteomyelitis fifth metatarsal head, MRI demonstrates acute osteo of the periphery of the periosteal tissue of the fifth metatarsal head. Rx doxycycline 100 mg twice daily x 14 days, levofloxacin 750 mg daily x 14 days. Stop date 10/26/2023 Pain: No pain secondary to diabetic peripheral polyneuropathy Host factors: DM type II with peripheral polyneuropathy, right-sided weakness post CVA in 2019, PVD, tailor's bunion deformity. I answered all the patient's questions. To return to the wound healing center in 1 week or call sooner if the patient has any questions or concerns.
[2023-11-09 10:58] VITALS: BP 168/82; PULSE 80; RESP 18; TEMP 36.1; BMI 34.3
[2023-11-10 08:24] LABS: Bedside Glucose 261 mg/dL (74-106)
[2023-11-10 10:31] LABS: Bedside Glucose 241 mg/dL (74-106)
[2023-11-10 10:37] VITALS: BP 172/93; BP 192/78; PULSE 80; PULSE 86; RESP 15; RESP 16; TEMP 37; TEMP 37.1
--- NOTE | 2023-11-10 14:16 | HBO.PN.PCM_ITS ---
History of Present Illness Date of Service: 11/10/23 Chief Complaint: Right foot ulceration History of Wound: Ms. Sawyer is a 63-year-old currently being seen at the wound center for right foot ulcer. History of diabetes mellitus type 2 and following recent MRI, diagnosed with osteomyelitis. Per documentation, Mayes stage III. Due to history of diabetic foot wound and osteomyelitis, she has been recommended for hyperbaric oxygen therapy. Comorbidities include coronary artery disease status post CABG. No known history of recurrent ear infections, COPD or tobacco use. She also denies any seizure episodes. She does however report variable blood glucose readings with frequent low blood glucose readings. Currently on insulin. Has continuous glucose monitoring. Recently had an EKG and a chest x-ray done with no acute concerns. She has no acute concerns at this time. Progress of Wound: Progress: Today represents her 7th of 30 planned HBO treatment sessions. Tolerance: Hyperbaric oxygen treatment was administered as per the facility's protocol at 2.0 PILO in 100% oxygen for 90 minutes without air breaks. The patient tolerated hyperbaric oxygen therapy without complaints or complications. Pre and post blood glucose levels as documented. Upon emergence from the hyperbaric chamber, her vitals remained stable and she was discharged in stable condition. Objective Data Objective Data Vital Signs: Vital Signs Temp Pulse Resp BP 98.6 F 86 16 172/93 H 11/10/23 10:37 11/10/23 10:37 11/10/23 10:37 11/10/23 10:37 Weight: 90.718 kg Body Mass Index (BMI) 34.3 Lab / Micro Data Labs: Laboratory Results - last 24 hr 11/10/23 08:06: POC Glucose 261 H 11/10/23 10:14: POC Glucose 241 H Exam Nursing Assessment and Debridement Post-Debridement Measurements and Additional Note: Post-Debridement Measurements/Treatment - Nurse 1 - General Ulcer Assessment Start: 10/26/23 10:49 Freq: Status: Active Protocol: DEDRICK Activity Type Activity Date Activity User E-sign Co-sign Detail Recorded Client Recorded Date Recorded By Document 11/09/23 10:58 TOMAS [id number] 11/09/23 11:00 RB 11/09/23 10:58 - Today's Visit Information Type of service Follow-up Visit (Physician/BILINGUAL SALES ASSISTANT ) Arrival Mode Ambulatory Transfer Assistance None Patient Identification Verified (Name & Yes ) Patient Requires Transmission-Based No Precautions Height and Weight Body Mass Index (BMI) 34.3 BMI Classification Obese Vital Signs Temperature (97.8 F-99.1 F) 97 F L Temperature Source Temporal Pulse Rate (60-100) 80 Pulse Location Monitor Respiratory Rate (12-18) 18 Respiratory rate source Observation Blood Pressure (90/60-120/80) 168/82 H Blood Pressure Mean (mm Hg) 110 Source Monitor Position Semi-Fowlers Blood Pressure Location Left Arm History Since Last Visit- (Skip if this is Patient's initial visit) Have you changed medications since your No last visit? Any new allergies or adverse reactions No Had a fall/change in ADL's that may No increase risk of falls Signs or symptoms of abuse and/or No neglect since last visit Have you been in the hospital since your No last visit? Has dressing in place as prescribed Yes Has compression in place as prescribed No Has offloadiing in place as prescribed No Experienced any changes in pain level or No management Pain Scale: 0-10 Numeric Is Patient Pain Free? Yes WC - Nurse 1 - General Ulcer Measurement Start: 10/26/23 10:49 Freq: Status: Active Protocol: Activity Type Activity Date Activity User E-sign Co-sign Detail Recorded Client Recorded Date Recorded By Document 11/09/23 10:58 [id number] 11/09/23 11:00 TOMAS 11/09/23 10:58 Wound Center Nurse 1 1. R FOOT PLANTAR LATERAL -Combined with other wound No -Current Size (cm) - Length 1.2 -Current Size (cm) - Width 1.2 -Current Size (cm) - Depth 0.1 -Total Square Cm 1.44 -Tunneling No -Undermining/Tunneling No -Circular Undermining No -Exudate Amt Medium -Exudate Type Serosanguineous -Wound Margin Distinct, Outline Attached -Granulation Amt Medium (34-66%) -Granulation Quality [place] -Slough/Fibrin Yes -Necrosis Amt Medium (34-66%) -Necrotic Tissue Type Adherent Slough -Structure Exposed N/A -Texture (Pema-wound Skin Appearance) Callus -Moisture (Pema-wound Skin Appearance) Assessed -Color (Pema-wound Skin Appearance) Assessed -Temperature (Pema-wound Skin No Abnormality Appearance) (Pt Warm) -Tenderness on Palpation (Pema-wound No Skin Appearance) -Ulcer Cleansing Wound Cleanser -Foul Odor after Cleansing No -Anesthetic Used 5% Lidocaine Gel Lower Limb Edema Present Yes Right Calf (cm) 34.5 Right Ankle (cm) 19 - Nurse 2 - General Ulcer CM Notes Start: 10/26/23 10:49 Freq: Status: Active Protocol: Activity Type Activity Date Activity User E-sign Co-sign Detail Recorded Client Recorded Date Recorded By Document 11/09/23 11:08 [facility] [id number] 11/09/23 11:16 [facility] 11/09/23 11:08 Wound Center Nurse 2 1. R FOOT PLANTAR LATERAL -Time 11:08 -Correct Patient Yes -Correct Side, Site, Position Yes -Correct Procedure Yes -Procedure Performed Yes -Type of Procedure Debridement -Clinical Debridement Subcutaneous -Tissue Removed Subcutaneous -Post Debridement (cm) - Length 1.5 -Post Debridement (cm) - Width 1.4 -Post Debridement (cm) - Depth 0.2 -Total Square (Post) (cm) 2.10 -Area of Debridement (cm) - Length 1.5 -Area of Debridement (cm) - Width 1.4 -Total Square (Area) (cm) 2.10 -Tunneling No -Undermining/Tunneling No -Circular Undermining No -Wound/Ulcer Outcome Not Healed -Ulcer Cleansing Rinsed/ Irrigated with Saline -Foul Odor after Cleansing No -Bioengineered Tissue No -Bleeding Controlled with Pressure -Treatment Response Procedure Tolerated Well -Debridement - Subq, 1st 20sq cm Yes Pain Scale: 0-10 Numeric Is Patient Pain Free? Yes - Nurse 3 - General Ulcer D/C NN Start: 10/26/23 10:49 Freq: Status: Active Protocol: Activity Type Activity Date Activity User E-sign Co-sign Detail Recorded Client Recorded Date Recorded By Document 11/09/23 11:31 DL [id number] 11/09/23 11:32 DL 11/09/23 11:31 Wound Care Center Nurse 3 1. R FOOT PLANTAR LATERAL -Ulcer Cleansing Rinsed/ Irrigated with Saline -Foul Odor after Cleansing No -Primary Dressing Applied Promogran Lianet Matter -Primary Dressing Covered/Secured with Dry Gauze & Roll Gauze, Secured with Tape -Promogran Lianet Matter 1 Treatment Response Procedure Tolerated Well Pain Scale: 0-10 Numeric Is Patient Pain Free? Yes - Visit Discharge Discharge Condition Stable Ambulatory Status Ambulatory Transportation Private Auto Assessment/Plan Assessment/Plan (1) Type 2 diabetes mellitus with foot ulcer: CODE(S): E11.621 - Type 2 diabetes mellitus with foot ulcer; L97.509 - Non-pressure chronic ulcer of other part of unspecified foot with unspecified severity QUALIFIERS: Diabetes mellitus senior living insulin use: with superintendent container terminal use Qualified Code(s): E11.621 - Type 2 diabetes mellitus with foot ulcer; L97.509 - Non-pressure chronic ulcer of other part of unspecified foot with unspecified severity; Z79.4 - senior care (current) use of insulin (2) Osteomyelitis: CODE(S): M86.9 - Osteomyelitis, unspecified QUALIFIERS: Osteomyelitis type: unspecified type Osteomyelitis location: foot Laterality: right Qualified Code(s): M86.9 - Osteomyelitis, unspecified (3) Non-pressure chronic 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: CODE(S): L97.513 - Non-pressure chronic 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 (4) Type 2 diabetes mellitus: CODE(S): E11.9 - Type 2 diabetes mellitus without complications QUALIFIERS: Diabetes mellitus senior living insulin use: with superintendent container terminal use Diabetes mellitus complication status: with hyperglycemia Qualified Code(s): E11.65 - Type 2 diabetes mellitus with hyperglycemia; Z79.4 - senior care (current) use of insulin (5) Peripheral arterial disease: CODE(S): I73.9 - Peripheral vascular disease, unspecified (6) Diabetic foot ulcer with osteomyelitis: CODE(S): E11.621 - Type 2 diabetes mellitus with foot ulcer; E11.69 - Type 2 diabetes mellitus with other specified complication; L97.509 - Non-pressure chronic ulcer of other part of unspecified foot with unspecified severity; M86.9 - Osteomyelitis, unspecified (7) Diabetes mellitus with diabetic polyneuropathy: CODE(S): E11.42 - Type 2 diabetes mellitus with diabetic polyneuropathy QUALIFIERS: Diabetes mellitus type: type 2 Diabetes mellitus superintendent container terminal insulin use: with superintendent container terminal use Qualified Code(s): E11.42 - Type 2 diabetes mellitus with diabetic polyneuropathy; Z79.4 - senior care (current) use of insulin (8) Essential (primary) hypertension: CODE(S): I10 - Essential (primary) hypertension PLAN: Her blood pressure readings have been elevated and I will have her increase her her metoprolol succinate to 100 mg daily. PLAN: Plan The patient tolerated hyperbaric oxygen therapy well which will be continued per her medical plan. This note was generated with [employer] dictation software. It may contain incorrect words, spelling, and punctuation that were not noted in checking the note before signing.
[2023-11-13 08:37] LABS: Bedside Glucose 223 mg/dL (74-106)
--- NOTE | 2023-11-13 09:20 | PCM.HBO.PN ---
History of Present Illness Date of Service: 11/13/23 Chief Complaint: Right foot ulceration History of Wound: Ms. Sawyer is a 63-year-old currently being seen at the wound center for right foot ulcer. History of diabetes mellitus type 2 and following recent MRI, diagnosed with osteomyelitis. Per documentation, Mayes stage III. Due to history of diabetic foot wound and osteomyelitis, she has been recommended for hyperbaric oxygen therapy. Comorbidities include coronary artery disease status post CABG. No known history of recurrent ear infections, COPD or tobacco use. She also denies any seizure episodes. She does however report variable blood glucose readings with frequent low blood glucose readings. Currently on insulin. Has continuous glucose monitoring. Recently had an EKG and a chest x-ray done with no acute concerns. She has no acute concerns at this time. Progress of Wound: Progress: Today represents her 8th of 30 planned HBO treatment sessions. Tolerance: Hyperbaric oxygen treatment was administered as per the facility's protocol at 2.0 PILO in 100% oxygen for 90 minutes without air breaks. The patient tolerated hyperbaric oxygen therapy without complaints or complications. Pre and post blood glucose levels as documented. Upon emergence from the hyperbaric chamber, her vitals remained stable and she was discharged in stable condition. Objective Data Objective Data Vital Signs: Vital Signs Temp Pulse Resp BP 98.6 F 86 16 172/93 H 11/10/23 10:37 11/10/23 10:37 11/10/23 10:37 11/10/23 10:37 Weight: 200 lb Body Mass Index (BMI) 34.3 Lab / Micro Data Labs: Laboratory Results - last 24 hr 11/13/23 08:20: POC Glucose 223 H Exam Physical Exam Const alert, oriented x3 and no apparent distress General Appearance: cooperative HEENT normocephalic and TM's normal bilaterally Eyes General Eye: normal appearance of both eyes Resp normal respiratory effort, no use of accessory muscles and clear to auscultation bilaterally Effort and Inspection: able to speak in complete sentences Cardio regular rate and regular rhythm Psych affect normal Charges/Coding Wound Center CF Procedures HBO Supervision: [id number] Hyperbaric Oxygen; supervision Assessment/Plan Assessment/Plan (1) Osteomyelitis: CODE(S): M86.9 - Osteomyelitis, unspecified QUALIFIERS: Laterality: right Osteomyelitis location: foot Osteomyelitis type: unspecified type Qualified Code(s): M86.9 - Osteomyelitis, unspecified (2) Type 2 diabetes mellitus with foot ulcer: CODE(S): E11.621 - Type 2 diabetes mellitus with foot ulcer; L97.509 - Non-pressure chronic ulcer of other part of unspecified foot with unspecified severity QUALIFIERS: Diabetes mellitus terminal gauger insulin use: with terminal gauger use Qualified Code(s): E11.621 - Type 2 diabetes mellitus with foot ulcer; L97.509 - Non-pressure chronic ulcer of other part of unspecified foot with unspecified severity; Z79.4 - [facility] (current) use of insulin (3) Non-pressure chronic 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: CODE(S): L97.513 - Non-pressure chronic 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 (4) Type 2 diabetes mellitus: CODE(S): E11.9 - Type 2 diabetes mellitus without complications QUALIFIERS: Diabetes mellitus complication status: with hyperglycemia Diabetes mellitus prison insulin use: with prison use Qualified Code(s): E11.65 - Type 2 diabetes mellitus with hyperglycemia; Z79.4 - [facility] (current) use of insulin (5) Peripheral arterial disease: CODE(S): I73.9 - Peripheral vascular disease, unspecified (6) Diabetic foot ulcer with osteomyelitis: CODE(S): E11.621 - Type 2 diabetes mellitus with foot ulcer; E11.69 - Type 2 diabetes mellitus with other specified complication; L97.509 - Non-pressure chronic ulcer of other part of unspecified foot with unspecified severity; M86.9 - Osteomyelitis, unspecified (7) Diabetes mellitus with diabetic polyneuropathy: CODE(S): E11.42 - Type 2 diabetes mellitus with diabetic polyneuropathy QUALIFIERS: Diabetes mellitus terminal gauger insulin use: with terminal gauger use Diabetes mellitus type: type 2 Qualified Code(s): E11.42 - Type 2 diabetes mellitus with diabetic polyneuropathy; Z79.4 - [facility] (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
[2023-11-13 10:26] VITALS: BP 153/91; BP 155/80; PULSE 77; PULSE 87; RESP 14; RESP 15; TEMP 36.9; TEMP 37.1
[2023-11-13 10:49] LABS: Bedside Glucose 206 mg/dL (74-106)
== END 2023-11-13 23:59 | disposition home or self-care (01) ==
LOC: WC 08:00
PROVIDERS: PCP Family Medicine; Referring Provider Physician Assistant; Visit Provider Student in an Organized Health Care Education/Training Program
DX: E11.621 Type 2 diabetes mellitus with foot ulcer (principal); L97.412 Non-pressure chronic ulcer of right heel and midfoot with fat layer exposed; M86.8X7 Other osteomyelitis, ankle and foot; E11.69 Type 2 diabetes mellitus with other specified complication; E11.51 Type 2 diabetes mellitus with diabetic peripheral angiopathy without gangrene; E11.42 Type 2 diabetes mellitus with diabetic polyneuropathy; Z79.4 Long term (current) use of insulin; E11.65 Type 2 diabetes mellitus with hyperglycemia; H61.23 Impacted cerumen, bilateral; Z79.2 Long term (current) use of antibiotics; M20.11 Hallux valgus (acquired), right foot; M21.621 Bunionette of right foot; Z79.01 Long term (current) use of anticoagulants; Z79.84 Long term (current) use of oral hypoglycemic drugs; Z79.890 Hormone replacement therapy; Z79.899 Other long term (current) drug therapy; Z95.1 Presence of aortocoronary bypass graft
CPT/HCPCS: 11042; 82962; 99183; G0277

== ENCOUNTER 2023-12-07 08:30 | Outpatient (RCR) | payer MEDICARE, MEDICAID, SELFPAY ==
[2023-11-14 00:46] VITALS: BP 153/91; BP 155/80; BP 162/98; PULSE 77; PULSE 87; PULSE 90; RESP 14; RESP 15; RESP 16; TEMP 36.1; TEMP 36.9; TEMP 37.1; BMI 34.3
--- NOTE | 2023-11-14 08:40 | HBO.PN.PCM_ITS ---
History of Present Illness Date of Service: 11/14/23 Chief Complaint: Right foot ulceration History of Wound: Ms. Sawyer is a 63-year-old currently being seen at the wound center for right foot ulcer. History of diabetes mellitus type 2 and following recent MRI, diagnosed with osteomyelitis. Per documentation, Mayes stage III. Due to history of diabetic foot wound and osteomyelitis, she has been recommended for hyperbaric oxygen therapy. Comorbidities include coronary artery disease status post CABG. No known history of recurrent ear infections, COPD or tobacco use. She also denies any seizure episodes. She does however report variable blood glucose readings with frequent low blood glucose readings. Currently on insulin. Has continuous glucose monitoring. Recently had an EKG and a chest x-ray done with no acute concerns. She has no acute concerns at this time. Progress of Wound: Progress: Today represents her 9th of 30 planned HBO treatment sessions. Tolerance: Hyperbaric oxygen treatment was administered as per the facility's protocol at 2.0 PILO in 100% oxygen for 90 minutes without air breaks. The patient tolerated hyperbaric oxygen therapy without complaints or complications. Pre and post blood glucose levels as documented. Upon emergence from the hyperbaric chamber, her vitals remained stable and she was discharged in stable condition. Objective Data Objective Data Vital Signs: Vital Signs Temp Pulse Resp BP 98.4 F 87 14 153/91 H 11/14/23 00:46 11/14/23 00:46 11/14/23 00:46 11/14/23 00:46 Weight: 200 lb Body Mass Index (BMI) 34.3 Exam Physical Exam Const alert, oriented x3 and no apparent distress General Appearance: cooperative HEENT normocephalic and TM's normal bilaterally Eyes General Eye: normal appearance of both eyes Resp normal respiratory effort, no use of accessory muscles and clear to auscultation bilaterally Effort and Inspection: able to speak in complete sentences Cardio regular rate and regular rhythm Psych affect normal Charges/Coding Wound Center CF Procedures HBO Supervision: [id number] Hyperbaric Oxygen; supervision Assessment/Plan Assessment/Plan (1) Osteomyelitis: CODE(S): M86.9 - Osteomyelitis, unspecified QUALIFIERS: Laterality: right Osteomyelitis location: foot Osteomyelitis type: unspecified type Qualified Code(s): M86.9 - Osteomyelitis, unspecified (2) Type 2 diabetes mellitus with foot ulcer: CODE(S): E11.621 - Type 2 diabetes mellitus with foot ulcer; L97.509 - Non -pressure chronic ulcer of other part of unspecified foot with unspecified severity QUALIFIERS: Diabetes mellitus intermediate accountant insulin use: with intermediate accountant use Qualified Code(s): E11.621 - Type 2 diabetes mellitus with foot ulcer; L97.509 - Non-pressure chronic ulcer of other part of unspecified foot with unspecified severity; Z79.4 - nursing home (current) use of insulin (3) Non-pressure chronic 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: CODE(S): L97.513 - Non-pressure chronic 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 (4) Type 2 diabetes mellitus: CODE(S): E11.9 - Type 2 diabetes mellitus without complications QUALIFIERS: Diabetes mellitus complication status: with hyperglycemia Diabetes mellitus custodial insulin use: with intermediate accountant use Qualified Code(s): E11.65 - Type 2 diabetes mellitus with hyperglycemia; Z79.4 - intermediate teacher (current) use of insulin (5) Peripheral arterial disease: CODE(S): I73.9 - Peripheral vascular disease, unspecified (6) Diabetic foot ulcer with osteomyelitis: CODE(S): E11.621 - Type 2 diabetes mellitus with foot ulcer; E11.69 - Type 2 diabetes mellitus with other specified complication; L97.509 - Non-pressure chronic ulcer of other part of unspecified foot with unspecified severity; M86.9 - Osteomyelitis, unspecified (7) Diabetes mellitus with diabetic polyneuropathy: CODE(S): E11.42 - Type 2 diabetes mellitus with diabetic polyneuropathy QUALIFIERS: Diabetes mellitus custodial insulin use: with intermediate accountant use Diabetes mellitus type: type 2 Qualified Code(s): E11.42 - Type 2 diabetes mellitus with diabetic polyneuropathy; Z79.4 - intermediate teacher (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
[2023-11-14 08:43] LABS: Bedside Glucose 221 mg/dL (74-106)
[2023-11-14 10:45] VITALS: BP 165/91; BP 175/95; PULSE 81; PULSE 90; RESP 14; RESP 15; TEMP 36.7; TEMP 36.9
[2023-11-14 10:50] LABS: Bedside Glucose 193 mg/dL (74-106)
[2023-11-15 08:36] LABS: Bedside Glucose 199 mg/dL (74-106)
[2023-11-15 10:52] LABS: Bedside Glucose 83 mg/dL (74-106)
[2023-11-15 10:53] VITALS: BP 166/106; BP 166/78; PULSE 81; PULSE 84; RESP 13; RESP 16; TEMP 36.8
--- NOTE | 2023-11-15 12:51 | HBO.PN.PCM_ITS ---
History of Present Illness Date of Service: 11/15/23 Chief Complaint: Right foot ulceration History of Wound: Ms. Sawyer is a 63-year-old currently being seen at the wound center for right foot ulcer. History of diabetes mellitus type 2 and following recent MRI, diagnosed with osteomyelitis. Per documentation, Mayes stage III. Due to history of diabetic foot wound and osteomyelitis, she has been recommended for hyperbaric oxygen therapy. Comorbidities include coronary artery disease status post CABG. No known history of recurrent ear infections, COPD or tobacco use. She also denies any seizure episodes. She does however report variable blood glucose readings with frequent low blood glucose readings. Currently on insulin. Has continuous glucose monitoring. Recently had an EKG and a chest x-ray done with no acute concerns. She has no acute concerns at this time. Progress of Wound: Progress: Today represents her 10th of 30 planned HBO treatment sessions. Tolerance: Hyperbaric oxygen treatment was administered as per the facility's protocol at 2.0 PILO in 100% oxygen for 90 minutes without air breaks. The patient tolerated hyperbaric oxygen therapy without complaints or complications. Pre and post blood glucose levels as documented. Upon emergence from the hyperbaric chamber, her vitals remained stable and she was discharged in stable condition. Subjective Subjective Patient voices no concern blood sugars a little low we gave her some juice before going into chamber. Blood pressure has been high but Dr. Cali just switched her antihypertensive meds. Patient denies any headaches or blurred vision Objective Data Objective Data Tolerating treatments well has no other complaints Vital Signs: Vital Signs Temp Pulse Resp BP 98.2 F 81 16 166/78 H 11/15/23 10:53 11/15/23 10:53 11/15/23 10:53 11/15/23 10:53 Weight: 200 lb Body Mass Index (BMI) 34.3 Lab / Micro Data Labs: Laboratory Results - last 24 hr 11/15/23 08:18: POC Glucose 199 H 11/15/23 10:33: POC Glucose 83 Exam Physical Exam Const alert, oriented x3 and no apparent distress General Appearance: cooperative HEENT normocephalic and TM's normal bilaterally Eyes General Eye: normal appearance of both eyes Resp normal respiratory effort, no use of accessory muscles and clear to auscultation bilaterally Effort and Inspection: able to speak in complete sentences Cardio regular rate and regular rhythm Psych affect normal Assessment/Plan Assessment/Plan (1) Osteomyelitis: CODE(S): M86.9 - Osteomyelitis, unspecified QUALIFIERS: Osteomyelitis type: unspecified type Osteomyelitis location: foot Laterality: right Qualified Code(s): M86.9 - Osteomyelitis, unspecified (2) Type 2 diabetes mellitus with foot ulcer: CODE(S): E11.621 - Type 2 diabetes mellitus with foot ulcer; L97.509 - Non-pressure chronic ulcer of other part of unspecified foot with unspecified severity QUALIFIERS: Diabetes mellitus equipment operator intermodal yard insulin use: with care home use Qualified Code(s): E11.621 - Type 2 diabetes mellitus with foot ulcer; L97.509 - Non-pressure chronic ulcer of other part of unspecified foot with unspecified severity; Z79.4 - intermediate (current) use of insulin (3) Non-pressure chronic 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: CODE(S): L97.513 - Non-pressure chronic 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 (4) Type 2 diabetes mellitus: CODE(S): E11.9 - Type 2 diabetes mellitus without complications QUALIFIERS: Diabetes mellitus equipment operator intermodal yard insulin use: with care home use Diabetes mellitus complication status: with hyperglycemia Qualified Code(s): E11.65 - Type 2 diabetes mellitus with hyperglycemia; Z79.4 - equipment operator intermodal yard (current) use of insulin (5) Peripheral arterial disease: CODE(S): I73.9 - Peripheral vascular disease, unspecified (6) Diabetic foot ulcer with osteomyelitis: CODE(S): E11.621 - Type 2 diabetes mellitus with foot ulcer; E11.69 - Type 2 diabetes mellitus with other specified complication; L97.509 - Non-pressure chronic ulcer of other part of unspecified foot with unspecified severity; M86.9 - Osteomyelitis, unspecified (7) Diabetes mellitus with diabetic polyneuropathy: CODE(S): E11.42 - Type 2 diabetes mellitus with diabetic polyneuropathy QUALIFIERS: Diabetes mellitus type: type 2 Diabetes mellitus equipment operator intermodal yard insulin use: with equipment operator intermodal yard use Qualified Code(s): E11.42 - Type 2 diabetes mellitus with diabetic polyneuropathy; Z79.4 - intermediate (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
[2023-11-16 08:42] LABS: Bedside Glucose 197 mg/dL (74-106)
--- NOTE | 2023-11-16 08:42 | HBO.PN.PCM_ITS ---
History of Present Illness Date of Service: 11/16/23 Chief Complaint: Right foot ulceration History of Wound: Ms. Sawyer is a 63-year-old currently being seen at the wound center for right foot ulcer. History of diabetes mellitus type 2 and following recent MRI, diagnosed with osteomyelitis. Per documentation, Mayes stage III. Due to history of diabetic foot wound and osteomyelitis, she has been recommended for hyperbaric oxygen therapy. Comorbidities include coronary artery disease status post CABG. No known history of recurrent ear infections, COPD or tobacco use. She also denies any seizure episodes. She does however report variable blood glucose readings with frequent low blood glucose readings. Currently on insulin. Has continuous glucose monitoring. Recently had an EKG and a chest x-ray done with no acute concerns. She has no acute concerns at this time. Progress of Wound: Progress: Today represents her 11th of 30 planned HBO treatment sessions. Tolerance: Hyperbaric oxygen treatment was administered as per the facility's protocol at 2.0 PILO in 100% oxygen for 90 minutes without air breaks. The patient tolerated hyperbaric oxygen therapy without complaints or complications. Pre and post blood glucose levels as documented. Upon emergence from the hyperbaric chamber, her vitals remained stable and she was discharged in stable condition. Objective Data Objective Data Vital Signs: Vital Signs Temp Pulse Resp BP 98.2 F 81 16 166/78 H 11/15/23 10:53 11/15/23 10:53 11/15/23 10:53 11/15/23 10:53 Weight: 200 lb Body Mass Index (BMI) 34.3 Lab / Micro Data Labs: Laboratory Results - last 24 hr 11/15/23 10:33: POC Glucose 83 Exam Physical Exam Const alert, oriented x3 and no apparent distress General Appearance: cooperative HEENT normocephalic and TM's normal bilaterally Eyes General Eye: normal appearance of both eyes Resp normal respiratory effort, no use of accessory muscles and clear to auscultation bilaterally Effort and Inspection: able to speak in complete sentences Cardio regular rate and regular rhythm Psych affect normal Charges/Coding Wound Center CF Procedures HBO Supervision: [id number] Hyperbaric Oxygen; supervision Assessment/Plan Assessment/Plan (1) Osteomyelitis: CODE(S): M86.9 - Osteomyelitis, unspecified QUALIFIERS: Laterality: right Osteomyelitis location: foot Osteomyelitis type: unspecified type Qualified Code(s): M86.9 - Osteomyelitis, unspecified (2) Type 2 diabetes mellitus with foot ulcer: CODE(S): E11.621 - Type 2 diabetes mellitus with foot ulcer; L97.509 - Non-pressure chronic ulcer of other part of unspecified foot with unspecified severity QUALIFIERS: Diabetes mellitus residential insulin use: with long t erm use Qualified Code(s): E11.621 - Type 2 diabetes mellitus with foot ulcer; L97.509 - Non-pressure chronic ulcer of other part of unspecified foot with unspecified severity; 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 (3) Non-pressure chronic 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: CODE(S): L97.513 - Non-pressure chronic 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 (4) Type 2 diabetes mellitus: CODE(S): E11.9 - Type 2 diabetes mellitus without complications QUALIFIERS: Diabetes mellitus complication status: with hyperglycemia Diabetes mellitus long term care pharmacist insulin use: with long term care pharmacist use Qualified Code(s): E11.65 - Type 2 diabetes mellitus with hyperglycemia; Z79.4 - [facility] (current) use of insulin (5) Peripheral arterial disease: CODE(S): I73.9 - Peripheral vascular disease, unspecified (6) Diabetic foot ulcer with osteomyelitis: CODE(S): E11.621 - Type 2 diabetes mellitus with foot ulcer; E11.69 - Type 2 diabetes mellitus with other specified complication; L97.509 - Non-pressure chronic ulcer of other part of unspecified foot with unspecified severity; M86.9 - Osteomyelitis, unspecified (7) Diabetes mellitus with diabetic polyneuropathy: CODE(S): E11.42 - Type 2 diabetes mellitus with diabetic polyneuropathy QUALIFIERS: Diabetes mellitus long term care pharmacist insulin use: with residential use Diabetes mellitus type: type 2 Qualified Code(s): E11.42 - Type 2 diabetes mellitus with diabetic polyneuropathy; Z79.4 - [facility] (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
[2023-11-16 10:48] VITALS: BP 158/89; PULSE 82; RESP 18; TEMP 36.4; BMI 34.3
[2023-11-16 10:50] VITALS: BP 154/95; BP 161/77; PULSE 73; PULSE 89; RESP 14; RESP 15; TEMP 36.7; TEMP 36.8
[2023-11-16 10:51] LABS: Bedside Glucose 157 mg/dL (74-106)
--- NOTE | 2023-11-16 18:03 | PN.PCM_ITS ---
History of Present Illness Date of Service: 11/16/23 Chief Complaint: Right foot ulceration History of Wound: Ms. Sawyer is a 63-year-old currently being seen at the wound center for right foot ulcer. History of diabetes mellitus type 2 and following recent MRI, diagnosed with osteomyelitis. Per documentation, Mayes stage III. Due to history of diabetic foot wound and osteomyelitis, she has been recommended for hyperbaric oxygen therapy. Comorbidities include coronary artery disease status post CABG. No known history of recurrent ear infections, COPD or tobacco use. She also denies any seizure episodes. She does however report variable blood glucose readings with frequent low blood glucose readings. Currently on insulin. Has continuous glucose monitoring. Recently had an EKG and a chest x-ray done with no acute concerns. She has no acute concerns at this time. Progress of Wound: Progress: Today represents her 11th of 30 planned HBO treatment sessions. Tolerance: Hyperbaric oxygen treatment was administered as per the facility's protocol at 2.0 PILO in 100% oxygen for 90 minutes without air breaks. The patient tolerated hyperbaric oxygen therapy without complaints or complications. Pre and post blood glucose levels as documented. Upon emergence from the hyperbaric chamber, her vitals remained stable and she was discharged in stable condition. Subjective Subjective This is a 63-year-old female who follows up to the wound center for continued care of a plantar lateral fifth metatarsal head ulceration of the right foot. She states she is continue to change the dressing daily with Lianet. She has finished oral antibiotic as instructed. She has undergone 10 hyperbaric dives with good tolerance. Continues offloading and surgical shoe with fifth ray cut out. Denies constitutional symptoms. Denies further complaints. Objective Data Objective Data Vital Signs: Vital Signs Temp Pulse Resp BP 98.2 F 89 15 154/95 H 11/16/23 10:50 11/16/23 10:50 11/16/23 10:50 11/16/23 10:50 Weight: 90.718 kg Body Mass Index (BMI) 34.3 Lab / Micro Data Labs: Laboratory Results - last 24 hr 11/16/23 08:25: POC Glucose 197 H 11/16/23 10:33: POC Glucose 157 H Physical Exam Const alert, oriented x3 and no apparent distress General Appearance: cooperative HEENT normocephalic Eyes General Eye: normal appearance of both eyes Neck General: normal visual inspection Lymph Lymphatic: no lymphadenopathy noted and no lymphedema noted Resp normal respiratory effort Cardio regular rate and regular rhythm Extremity normal capillary refill, no calf tenderness and no pedal edema Extremity Narrative: Right lower extremity: Vascular: DP and PT pulses nonpalpable. Doppler demonstrates monophasic DP and PT. CFT is less than 5 seconds to the digits. Hair growth is absent to digits. Normal temperature gradient is noted. No increased temperature about the ulcerative site. Neurologic: Protective sensation is absent consistent with diabetic peripheral polyneuropathy. Musculoskeletal: Muscle strength 5 of 5 age-appropriate. 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 Decreased range of motion of the first metatarsophalangeal joint without pain or crepitus. Decreased range of motion of the ankle joint in dorsiflexion with the knee extended without pain or crepitus. Dermatologic: There is a full-thickness ulceration noted at the plantar lateral aspect of the fifth metatarsal head tailor's bunion deformity with surrounding hyperkeratosis. Granular ulcerative bed. Predebridement ulceration measures 1.4 cm x 1.2 cm. Ulceration does not probe to bone. No palpable fluctuance/bogginess. No visible abscess formation. No purulent drainage. No lymphangitic streaking or soft tissue crepitus noted. Skin no rashes or lesions noted, skin turgor normal and no jaundice Neuro moves all extremities Debridement Note Debridement Note Wound debrided: Subfifth metatarsal head right foot Laterality: Right Wound Grade/Stage: Mayes stage III Type of Debridement: Excisional debridement Anesthesia Used: 5% Lidocaine Gel Depth: Down to and including healthy tissue and in the subcutaneous layer Percentage of wound debrided: 100 Instrument Used: 5mm curette Tissue Removed: Fibrous, devitalized subcutaneous, biofilm, slough Severity: Fat Layer Exposed Amount of bleeding with debridement: Mild Bleeding Controlled with: Compression and gauze Patient tolerated procedure: Patient tolerated procedure well Post-Debridement Measurements and Additional Note: Post-Debridement Measurements/Treatment WC - Nurse 1 - General Ulcer Assessment Start: 11/14/23 10:45 Freq: Status: Active Protocol: DEDRICK Activity Type Activity Date Activity User E-sign Co-sign Detail Recorded Client Recorded Date Recorded By Document 11/16/23 10:48 DL [id number] 11/16/23 10:54 DL 11/16/23 10:48 - Today's Visit Information Type of service Follow-up Visit (Physician/UPSETTER ) Arrival Mode Ambulatory Transfer Assistance None Patient Identification Verified (Name & Yes ) Patient Requires Transmission-Based No Precautions Height and Weight Body Mass Index (BMI) 34.3 BMI Classification Obese Vital Signs Temperature (97.8 F-99.1 F) 97.6 F L Temperature Source Temporal Pulse Rate (60-100) 82 Pulse Location Monitor Respiratory Rate (12-18) 18 Respiratory rate source Observation Blood Pressure (90/60-120/80) 158/89 H Blood Pressure Mean (mm Hg) 112 Source Monitor History Since Last Visit- (Skip if this is Patient's initial visit) Have you changed medications since your No last visit? Any new allergies or adverse reactions No Had a fall/change in ADL's that may No increase risk of falls Signs or symptoms of abuse and/or No neglect since last visit Have you been in the hospital since your No last visit? Has dressing in place as prescribed Yes Has compression in place as prescribed N/A Has offloadiing in place as prescribed Yes Experienced any changes in pain level or No management Right Footwear Surgical Shoe with pressure relief insole Pain Scale: 0-10 Numeric Is Patient Pain Free? Yes - Nurse 1 - General Ulcer Measurement Start: 11/14/23 10:45 Freq: Status: Active Protocol: Activity Type Activity Date Activity User E-sign Co-sign Detail Recorded Client Recorded Date Recorded By Document 11/16/23 10:48 DL [id number] 11/16/23 10:54 DL 11/16/23 10:48 Wound Center Nurse 1 1. R FOOT PLANTAR LATERAL -Current Size (cm) - Length 1.3 -Current Size (cm) - Width 1.3 -Current Size (cm) - Depth 0.3 -Total Square Cm 1.69 -Exudate Amt Medium -Exudate Type Serosanguineous -Wound Margin Thickened & Rolled Under -Granulation Amt Medium (34-66%) -Granulation Quality [place],Red -Necrosis Amt Medium (34-66%) -Necrotic Tissue Type Adherent Slough -Structure Exposed N/A -Texture (Pema-wound Skin Appearance) Callus,Scarring -Moisture (Pema-wound Skin Appearance) Dry/Scaly -Color (Pema-wound Skin Appearance) No Abnormality -Temperature (Pema-wound Skin No Abnormality Appearance) (Pt Warm) -Tenderness on Palpation (Pema-wound No Skin Appearance) -Ulcer Cleansing Soap and Water -Foul Odor after Cleansing No -Anesthetic Used 5% Lidocaine Gel WC - Nurse 2 - General Ulcer CM Notes Start: 11/14/23 10:45 Freq: Status: Active Protocol: Activity Type Activity Date Activity User E-sign Co-sign Detail Recorded Client Recorded Date Recorded By Document 11/16/23 11:07 [facility] [id number] 11/16/23 11:18 [facility] 11/16/23 11:07 Wound Center Nurse 2 -Time 11:07 -Correct Patient Yes -Correct Side, Site, Position Yes -Correct Procedure Yes -Procedure Performed Yes -Type of Procedure Debridement -Clinical Debridement Subcutaneous -Tissue Removed Subcutaneous -Post Debridement (cm) - Length 1.5 -Post Debridement (cm) - Width 1.3 -Post Debridement (cm) - Depth 0.1 -Total Square (Post) (cm) 1.95 -Area of Debridement (cm) - Length 1.5 -Area of Debridement (cm) - Width 1.3 -Total Square (Area) (cm) 1.95 -Tunneling No -Undermining/Tunneling No -Circular Undermining No -Wound/Ulcer Outcome Not Healed -Ulcer Cleansing Rinsed/ Irrigated with Saline -Foul Odor after Cleansing No -Bioengineered Tissue Yes -Expiration Date 05/14/28 -Product Lot Number [id number] -Percent Used 100 -Lot number of Saline Used [id number] -Bleeding Controlled with Pressure -Treatment Response Procedure Tolerated Well -Type of Offloading Surgical Shoe -Debridement - Subq, 1st 20sq cm No -Apply Skin Sub - 1st 25 sq cm - Feet 1 -Epifix 18mm Disc 3 Pain Scale: 0-10 Numeric Is Patient Pain Free? Yes - Nurse 3 - General Ulcer D/C NN Start: 11/14/23 10:45 Freq: Status: Active Protocol: Activity Type Activity Date Activity User E-sign Co-sign Detail Recorded Client Recorded Date Recorded By Document 11/16/23 11:28 DL [id number] 11/16/23 11:29 DL 11/16/23 11:28 Wound Care Center Nurse 3 1. R FOOT PLANTAR LATERAL -Foul Odor after Cleansing No -Other Dressing epimesh -Primary Dressing Covered/Secured with Dry Gauze & Roll Gauze, Secured with Tape -Other Covering ABD Treatment Response Procedure Tolerated Well Pain Scale: 0-10 Numeric Is Patient Pain Free? 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 insulin use: with long-term use Diabetes mellitus type: type 2 Qualified Code(s): E11.42 - Type 2 diabetes mellitus with diabetic polyneuropathy; Z79.4 - [facility] (current) use of insulin (3) Type 2 diabetes mellitus with foot ulcer: CODE(S): E11.621 - Type 2 diabetes mellitus with foot ulcer; L97.509 - Non-pressure chronic ulcer of other part of unspecified foot with unspecified severity QUALIFIERS: Diabetes mellitus long-term insulin use: with terminal gauger supervisor use Qualified Code(s): E11.621 - Type 2 diabetes mellitus with foot ulcer; L97.509 - Non-pressure chronic ulcer of other part of unspecified foot with unspecified severity; Z79.4 - [facility] (current) use of insulin (4) Osteomyelitis: CODE(S): M86.9 - Osteomyelitis, unspecified QUALIFIERS: Laterality: right Osteomyelitis location: foot Osteomyelitis type: unspecified type Qualified Code(s): M86.9 - Osteomyelitis, unspecified (5) Hallux valgus of right foot: CODE(S): M20.11 - Hallux valgus (acquired), right foot (6) Tailor's bunion of right foot: CODE(S): M21.621 - Bunionette of right foot PLAN: Plan Patient seen and evaluated I have reviewed her previous note on 09/25/2023 from the [facility] and patient was placed on 10-day oral doxycycline with stop date of 10/05/2023. I have also reviewed imaging from 09/25/2023 demonstrating the subtle erosive change at the plantar lateral aspect of the fifth metatarsal which is questionable for osteomyelitis. Cultures were obtained of the wound. Cultures demonstrate: Providencia rettgeri, Streptococcus agalactiae (B), Streptococcus mitis, gram-negative carla, rare Pasteurella canis, Prevotella bivia, Fusobacterium nucleatum. She was prescribed continued course of oral doxycycline 100 mg twice daily x 14 days (stop date 10/26/2023) and oral Levofloxacin 750 mg daily x 14 days (stop date 10/26/2023) Predebridement measurement 1.4 cm x 1.2 cm Ulceration was debrided as noted in the clinical panel above. Postdebridement measurement 1.5 cm x 1.3 cm x 0.2 cm. Ulceration does not probe to bone and is granulating in well. EpiFix #1 applied to the wound base and anchored with Adaptic touch and Steri-Strips, dressed with dry sterile dressing. She was instructed to change outer dressing as needed. Surgical offloading shoe was given with fifth ray cut out for continued offloading. Discussed she is not to get the site wet. Will use cast bag to cover when showering. Ulceration demonstrates slight decrease in size versus previous visit. Healing well with Hyperbaric dives. Approved for advanced wound care product, EpiFix. Will continue application. Discussed her MRI from 10/05/2023 demonstrates focal marrow edema of the lateral aspect of the fifth metatarsal head, series 7 image 13 with overlying soft tissue swelling. Radiology states findings consistent with osteomyelitis. I do feel upon review that there is periostitis secondary to infection at the plantar lateral aspect but complete destruction is not visualized. Overall wound is improving with Dakin's and oral antibiotics. I have discussed options with her of both surgical and conservative. Discussed surgical options include amputation of the fifth metatarsal head and debridement of necrotic tissue. Discussed conservatively to continue the Dakin's with oral antibiotics and clearance for HBO therapy. Patient would like to try to continue the oral antibiotics with the HBO therapy as she does feel she can heal. I reviewed her labs for HBO clearance performed 10/13/23. WBC 8.9; Hgb 12.6; Hct 39.3; AST 16; ALT 15; CRP 9.56; albumin 3.0; prealbumin 18; sodium 139; potassium 3.8; chloride 101; CO2 30.0; BUN 19;Cr 0.96; glucose 145; HgbA1c 8.2%. She did see Dr. Garsia for clearance and has been cleared for HBO dives. She has started dives and will continue. She is tolerating dives well. Venous studies 10/13/23: Negative for acute DVT. Deep veins bilateral lower extremities patent and compressible segmentally. Positive reflux left saphenofemoral junction. LEAS: Right GARCÍA 0.87, moderate arterial insufficiency; Doppler and PVR waveforms demonstrate infrapopliteal disease. Left GARCÍA 0.41, severe arterial insufficiency. Doppler/PVR waveforms reveal distal SFA/popliteal and infrapopliteal disease. Patient will continue follow-up with Dr. Figueroa, vascular surgery. Discussed continuing to lower blood sugar as sugar today was 153 mg/dL. Last A1c was 9.0%, recently down to 8.2% on 10/13/23. She was encouraged for continued reduction. Discussed proper diabetic diet to aid in reduction of glucose and striving for A1c of under 7% to optimize healing. Patient is understanding of this. Discussed adequate protein to aid in wound healing. Tyson supplementation was also recommended. Discussed signs and symptoms of infection. Discussed that if she notices increasing redness about the ulcerative site that moves to on top of the foot and up the leg, any purulent drainage from the ulcerative site, increasing foul odor, or if she experiences fever greater than 101 degree accompanied by nausea, vomiting, chills that these are signs of a progressing infection and she should report to the ED for IV antibiotics and further evaluation. She is understanding of this today. The following work up and care recommendations were made: Dressing: EpiFix, Adaptic touch, Steri-Strips, dry sterile dressing. Change outer dressing as needed. Wash: Do not get wet Tissue growth optimization: EpiFix Offload: Surgical shoe with fifth ray cut out Vascular: Nonpalpable DP and PT pulses. LEAS were ordered 10/05/2023, awaiting results. Edema: No pedal edema noted Infection: Possible osteomyelitis fifth metatarsal head, MRI demonstrates acute osteo of the periphery of the periosteal tissue of the fifth metatarsal head. Rx doxycycline 100 mg twice daily x 14 days, levofloxacin 750 mg daily x 14 days. Stop date 10/26/2023 Pain: No pain secondary to diabetic peripheral polyneuropathy Host factors: DM type II with peripheral polyneuropathy, right-sided weakness post CVA in 2019, PVD, tailor's bunion deformity. I answered all the patient's questions. To return to the wound healing center in 2 weeks or call sooner if the patient has any questions or concerns.
[2023-11-17 08:35] LABS: Bedside Glucose 179 mg/dL (74-106)
[2023-11-17 08:42] VITALS: BP 157/82; BP 165/98; PULSE 69; PULSE 85; RESP 16; TEMP 35.6; TEMP 35.8
[2023-11-17 11:03] LABS: Bedside Glucose 178 mg/dL (74-106)
--- NOTE | 2023-11-17 13:23 | HBO.PN.PCM_ITS ---
History of Present Illness Date of Service: 11/17/23 Chief Complaint: Right foot ulceration History of Wound: Ms. Sawyer is a 63-year-old currently being seen at the wound center for right foot ulcer. History of diabetes mellitus type 2 and following recent MRI, diagnosed with osteomyelitis. Per documentation, Mayes stage III. Due to history of diabetic foot wound and osteomyelitis, she has been recommended for hyperbaric oxygen therapy. Comorbidities include coronary artery disease status post CABG. No known history of recurrent ear infections, COPD or tobacco use. She also denies any seizure episodes. She does however report variable blood glucose readings with frequent low blood glucose readings. Currently on insulin. Has continuous glucose monitoring. Recently had an EKG and a chest x-ray done with no acute concerns. She has no acute concerns at this time. Progress of Wound: Progress: Today represents her 12th of 30 planned HBO treatment sessions. Tolerance: Hyperbaric oxygen treatment was administered as per the facility's protocol at 2.0 PILO in 100% oxygen for 90 minutes without air breaks. The patient tolerated hyperbaric oxygen therapy without complaints or complications. Pre and post blood glucose levels as documented. Upon emergence from the hyperbaric chamber, her vitals remained stable and she was discharged in stable condition. Objective Data Objective Data Vital Signs: Vital Signs Temp Pulse Resp BP 96.4 F L 85 16 165/98 H 11/17/23 08:42 11/17/23 08:42 11/17/23 08:42 11/17/23 08:42 Weight: 90.718 kg Body Mass Index (BMI) 34.3 Lab / Micro Data Labs: Laboratory Results - last 24 hr 11/17/23 08:15: POC Glucose 179 H 11/17/23 10:41: POC Glucose 178 H Exam Physical Exam Const alert, oriented x3 and no apparent distress Psych mental status grossly normal, thought process normal, cooperative, affect normal and speech normal Nursing Assessment and Debridement Post-Debridement Measurements and Additional Note: Post-Debridement Measurements/Treatment WC - Nurse 1 - General Ulcer Assessment Start: 11/14/23 10:45 Freq: Status: Active Protocol: ENID.LUCINDA Activity Type Activity Date Activity User E-sign Co-sign Detail Recorded Client Recorded Date Recorded By Document 11/16/23 10:48 DL [id number] 11/16/23 10:54 DL 11/16/23 10:48 WC - Today's Visit Information Type of service Follow-up Visit (Physician/BUSINESS OBJECTS ANALYST ) Arrival Mode Ambulatory Transfer Assistance None Patient Identification Verified (Name & Yes ) Patient Requires Transmission-Based No Precautions Height and Weight Body Mass Index (BMI) 34.3 BMI Classification Obese Vital Signs Temperature (97.8 F-99.1 F) 97.6 F L Temperature Source Temporal Pulse Rate (60-100) 82 Pulse Location Monitor Respiratory Rate (12-18) 18 Respiratory rate source Observation Blood Pressure (90/60-120/80) 158/89 H Blood Pressure Mean (mm Hg) 112 Source Monitor History Since Last Visit- (Skip if this is Patient's initial visit) Have you changed medications since your No last visit? Any new allergies or adverse reactions No Had a fall/change in ADL's that may No increase risk of falls Signs or symptoms of abuse and/or No neglect since last visit Have you been in the hospital since your No last visit? Has dressing in place as prescribed Yes Has compression in place as prescribed N/A Has offloadiing in place as prescribed Yes Experienced any changes in pain level or No management Right Footwear Surgical Shoe with pressure relief insole Pain Scale: 0-10 Numeric Is Patient Pain Free? Yes - Nurse 1 - General Ulcer Measurement Start: 11/14/23 10:45 Freq: Status: Active Protocol: Activity Type Activity Date Activity User E-sign Co-sign Detail Recorded Client Recorded Date Recorded By Document 11/16/23 10:48 DL [id number] 11/16/23 10:54 DL 11/16/23 10:48 Wound Center Nurse 1 1. R FOOT PLANTAR LATERAL -Current Size (cm) - Length 1.3 -Current Size (cm) - Width 1.3 -Current Size (cm) - Depth 0.3 -Total Square Cm 1.69 -Exudate Amt Medium -Exudate Type Serosanguineous -Wound Margin Thickened & Rolled Under -Granulation Amt Medium (34-66%) -Granulation Quality [place],Red -Necrosis Amt Medium (34-66%) -Necrotic Tissue Type Adherent Slough -Structure Exposed N/A -Texture (Pema-wound Skin Appearance) Callus,Scarring -Moisture (Pema-wound Skin Appearance) Dry/Scaly -Color (Pema-wound Skin Appearance) No Abnormality -Temperature (Pema-wound Skin No Abnormality Appearance) (Pt Warm) -Tenderness on Palpation (Pema-wound No Skin Appearance) -Ulcer Cleansing Soap and Water -Foul Odor after Cleansing No -Anesthetic Used 5% Lidocaine Gel ENID - Nurse 2 - General Ulcer CM Notes Start: 11/14/23 10:45 Freq: Status: Active Protocol: Activity Type Activity Date Activity User E-sign Co-sign Detail Recorded Client Recorded Date Recorded By Document 11/16/23 11:07 [facility] [id number] 11/16/23 11:18 [facility] 11/16/23 11:07 Wound Center Nurse 2 -Time 11:07 -Correct Patient Yes -Correct Side, Site, Position Yes -Correct Procedure Yes -Procedure Performed Yes -Type of Procedure Debridement -Clinical Debridement Subcutaneous -Tissue Removed Subcutaneous -Post Debridement (cm) - Length 1.5 -Post Debridement (cm) - Width 1.3 -Post Debridement (cm) - Depth 0.1 -Total Square (Post) (cm) 1.95 -Area of Debridement (cm) - Length 1.5 -Area of Debridement (cm) - Width 1.3 -Total Square (Area) (cm) 1.95 -Tunneling No -Undermining/Tunneling No -Circular Undermining No -Wound/Ulcer Outcome Not Healed -Ulcer Cleansing Rinsed/ Irrigated with Saline -Foul Odor after Cleansing No -Bioengineered Tissue Yes -Expiration Date 05/14/28 -Product Lot Number [id number] -Percent Used 100 -Lot number of Saline Used [id number] -Bleeding Controlled with Pressure -Treatment Response Procedure Tolerated Well -Type of Offloading Surgical Shoe -Debridement - Subq, 1st 20sq cm No -Apply Skin Sub - 1st 25 sq cm - Feet 1 -Epifix 18mm Disc 3 Pain Scale: 0-10 Numeric Is Patient Pain Free? Yes - Nurse 3 - General Ulcer D/C NN Start: 11/14/23 10:45 Freq: Status: Active Protocol: Activity Type Activity Date Activity User E-sign Co-sign Detail Recorded Client Recorded Date Recorded By Document 11/16/23 11:28 DL [id number] 11/16/23 11:29 DL 11/16/23 11:28 Wound Care Center Nurse 3 1. R FOOT PLANTAR LATERAL -Foul Odor after Cleansing No -Other Dressing epimesh -Primary Dressing Covered/Secured with Dry Gauze & Roll Gauze, Secured with Tape -Other Covering ABD Treatment Response Procedure Tolerated Well Pain Scale: 0-10 Numeric Is Patient Pain Free? Yes WC - Visit Discharge Discharge Condition Stable Ambulatory Status Ambulatory Transportation Private Auto Assessment/Plan Assessment/Plan (1) Type 2 diabetes mellitus with foot ulcer: CODE(S): E11.621 - Type 2 diabetes mellitus with foot ulcer; L97.509 - Non-pressure chronic ulcer of other part of unspecified foot with unspecified severity QUALIFIERS: Diabetes mellitus continuous churn buttermaker insulin use: with continuous churn buttermaker use Qualified Code(s): E11.621 - Type 2 diabetes mellitus with foot ulcer; L97.509 - Non-pressure chronic ulcer of other part of unspecified foot with unspecified severity; 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 of insulin (2) Osteomyelitis: CODE(S): M86.9 - Osteomyelitis, unspecified QUALIFIERS: Osteomyelitis type: unspecified type Osteomyelitis location: foot Laterality: right Qualified Code(s): M86.9 - Osteomyelitis, unspecified (3) Non-pressure chronic 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: CODE(S): L97.513 - Non-pressure chronic 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 (4) Type 2 diabetes mellitus: CODE(S): E11.9 - Type 2 diabetes mellitus without complications QUALIFIERS: Diabetes mellitus continuous churn buttermaker insulin use: with group home use Diabetes mellitus complication status: with hyperglycemia Qualified Code(s): E11.65 - Type 2 diabetes mellitus with hyperglycemia; Z79.4 - retirement (current) use of insulin (5) Peripheral arterial disease: CODE(S): I73.9 - Peripheral vascular disease, unspecified (6) Diabetic foot ulcer with osteomyelitis: CODE(S): E11.621 - Type 2 diabetes mellitus with foot ulcer; E11.69 - Type 2 diabetes mellitus with other specified complication; L97.509 - Non-pressure chronic ulcer of other part of unspecified foot with unspecified severity; M86.9 - Osteomyelitis, unspecified (7) Diabetes mellitus with diabetic polyneuropathy: CODE(S): E11.42 - Type 2 diabetes mellitus with diabetic polyneuropathy QUALIFIERS: Diabetes mellitus type: type 2 Diabetes mellitus continuous churn buttermaker insulin use: with continuous churn buttermaker use Qualified Code(s): E11.42 - Type 2 diabetes mellitus with diabetic polyneuropathy; 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 of insulin (8) Essential (primary) hypertension: CODE(S): I10 - Essential (primary) hypertension PLAN: Her blood pressure readings have been somewhat better with metoprolol 100 mg. PLAN: Plan The patient tolerated hyperbaric oxygen therapy well which will be continued per her medical plan. This note was generated with [employer] dictation software. It may contain incorrect words, spelling, and punctuation that were not noted in checking the note before signing.
[2023-11-20 08:27] LABS: Bedside Glucose 190 mg/dL (74-106)
--- NOTE | 2023-11-20 08:59 | PCM.HBO.PN ---
History of Present Illness Date of Service: 11/20/23 Chief Complaint: Right foot ulceration History of Wound: Ms. Sawyer is a 63-year-old currently being seen at the wound center for right foot ulcer. History of diabetes mellitus type 2 and following recent MRI, diagnosed with osteomyelitis. Per documentation, Mayes stage III. Due to history of diabetic foot wound and osteomyelitis, she has been recommended for hyperbaric oxygen therapy. Comorbidities include coronary artery disease status post CABG. No known history of recurrent ear infections, COPD or tobacco use. She also denies any seizure episodes. She does however report variable blood glucose readings with frequent low blood glucose readings. Currently on insulin. Has continuous glucose monitoring. Recently had an EKG and a chest x-ray done with no acute concerns. She has no acute concerns at this time. Progress of Wound: Progress: Today represents her 13th of 30 planned HBO treatment sessions. Tolerance: Hyperbaric oxygen treatment was administered as per the facility's protocol at 2.0 PILO in 100% oxygen for 90 minutes without air breaks. The patient tolerated hyperbaric oxygen therapy without complaints or complications. Pre and post blood glucose levels as documented. Upon emergence from the hyperbaric chamber, her vitals remained stable and she was discharged in stable condition. Objective Data Objective Data Vital Signs: Vital Signs Temp Pulse Resp BP 96.4 F L 85 16 165/98 H 11/17/23 08:42 11/17/23 08:42 11/17/23 08:42 11/17/23 08:42 Weight: 200 lb Body Mass Index (BMI) 34.3 Lab / Micro Data Labs: Laboratory Results - last 24 hr 11/20/23 08:08: POC Glucose 190 H Exam Physical Exam Const alert, oriented x3 and no apparent distress General Appearance: cooperative HEENT normocephalic and TM's normal bilaterally Eyes General Eye: normal appearance of both eyes Resp normal respiratory effort, no use of accessory muscles and clear to auscultation bilaterally Effort and Inspection: able to speak in complete sentences Cardio regular rate and regular rhythm Psych affect normal Charges/Coding Wound Center CF Procedures HBO Supervision: [id number] Hyperbaric Oxygen; supervision Assessment/Plan Assessment/Plan (1) Osteomyelitis: CODE(S): M86.9 - Osteomyelitis, unspecified QUALIFIERS: Laterality: right Osteomyelitis location: foot Osteomyelitis type: unspecified type Qualified Code(s): M86.9 - Osteomyelitis, unspecified (2) Type 2 diabetes mellitus with foot ulcer: CODE(S): E11.621 - Type 2 diabetes mellitus with foot ulcer; L97.509 - Non-pressure chronic ulcer of other part of unspecified foot with unspecified severity QUALIFIERS: Diabetes mellitus penitentiary insulin use: with termite exterminator use Qualified Code(s): E11.621 - Type 2 diabetes mellitus with foot ulcer; L97.509 - Non-pressure chronic ulcer of other part of unspecified foot with unspecified severity; Z79.4 - USP (current) use of insulin (3) Non-pressure chronic 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: CODE(S): L97.513 - Non-pressure chronic 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 (4) Type 2 diabetes mellitus: CODE(S): E11.9 - Type 2 diabetes mellitus without complications QUALIFIERS: Diabetes mellitus complication status: with hyperglycemia Diabetes mellitus penitentiary insulin use: with termite exterminator use Qualified Code(s): E11.65 - Type 2 diabetes mellitus with hyperglycemia; Z79.4 - 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 (5) Peripheral arterial disease: CODE(S): I73.9 - Peripheral vascular disease, unspecified (6) Diabetic foot ulcer with osteomyelitis: CODE(S): E11.621 - Type 2 diabetes mellitus with foot ulcer; E11.69 - Type 2 diabetes mellitus with other specified complication; L97.509 - Non-pressure chronic ulcer of other part of unspecified foot with unspecified severity; M86.9 - Osteomyelitis, unspecified (7) Diabetes mellitus with diabetic polyneuropathy: CODE(S): E11.42 - Type 2 diabetes mellitus with diabetic polyneuropathy QUALIFIERS: Diabetes mellitus termite exterminator insulin use: with termite exterminator use Diabetes mellitus type: type 2 Qualified Code(s): E11.42 - Type 2 diabetes mellitus with diabetic polyneuropathy; Z79.4 - 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
[2023-11-20 10:42] LABS: Bedside Glucose 137 mg/dL (74-106)
[2023-11-20 10:44] VITALS: BP 155/90; BP 178/86; PULSE 77; PULSE 91; RESP 16; TEMP 36.6; TEMP 37
[2023-11-21 08:22] LABS: Bedside Glucose 238 mg/dL (74-106)
--- NOTE | 2023-11-21 08:50 | PCM.HBO.PN ---
History of Present Illness Date of Service: 11/21/23 Chief Complaint: Right foot ulceration History of Wound: Ms. Sawyer is a 63-year-old currently being seen at the wound center for right foot ulcer. History of diabetes mellitus type 2 and following recent MRI, diagnosed with osteomyelitis. Per documentation, Mayes stage III. Due to history of diabetic foot wound and osteomyelitis, she has been recommended for hyperbaric oxygen therapy. Comorbidities include coronary artery disease status post CABG. No known history of recurrent ear infections, COPD or tobacco use. She also denies any seizure episodes. She does however report variable blood glucose readings with frequent low blood glucose readings. Currently on insulin. Has continuous glucose monitoring. Recently had an EKG and a chest x-ray done with no acute concerns. She has no acute concerns at this time. Progress of Wound: Progress: Today represents her 14th of 30 planned HBO treatment sessions. Tolerance: Hyperbaric oxygen treatment was administered as per the facility's protocol at 2.0 PILO in 100% oxygen for 90 minutes without air breaks. The patient tolerated hyperbaric oxygen therapy without complaints or complications. Pre and post blood glucose levels as documented. Upon emergence from the hyperbaric chamber, her vitals remained stable and she was discharged in stable condition. Objective Data Objective Data Vital Signs: Vital Signs Temp Pulse Resp BP 97.9 F 91 16 155/90 H 11/20/23 10:44 11/20/23 10:44 11/20/23 10:44 11/20/23 10:44 Weight: 200 lb Body Mass Index (BMI) 34.3 Lab / Micro Data Labs: Laboratory Results - last 24 hr 11/20/23 10:25: POC Glucose 137 H 11/21/23 08:03: POC Glucose 238 H Exam Physical Exam Const alert, oriented x3 and no apparent distress General Appearance: cooperative HEENT normocephalic and TM's normal bilaterally Eyes General Eye: normal appearance of both eyes Resp normal respiratory effort, no use of accessory muscles and clear to auscultation bilaterally Effort and Inspection: able to speak in complete sentences Cardio regular rate and regular rhythm Psych affect normal Charges/Coding Wound Center CF Procedures HBO Supervision: [id number] Hyperbaric Oxygen; supervision Assessment/Plan Assessment/Plan (1) Osteomyelitis: CODE(S): M86.9 - Osteomyelitis, unspecified QUALIFIERS: Laterality: right Osteomyelitis location: foot Osteomyelitis type: unspecified type Qualified Code(s): M86.9 - Osteomyelitis, unspecified (2) Type 2 diabetes mellitus with foot ulcer: CODE(S): E11.621 - Type 2 diabetes mellitus with foot ulcer; L97.509 - Non-pressure chronic ulcer of other part of unspecified foot with unspecified severity QUALIFIERS: Diabetes mellitus penitentiary insulin use: with club room attendant use Qualified Code(s): E11.621 - Type 2 diabetes mellitus with foot ulcer; L97.509 - Non-pressure chronic ulcer of other part of unspecified foot with unspecified severity; Z79.4 - long-term (current) use of insulin (3) Non-pressure chronic 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: CODE(S): L97.513 - Non-pressure chronic 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 (4) Type 2 diabetes mellitus: CODE(S): E11.9 - Type 2 diabetes mellitus without complications QUALIFIERS: Diabetes mellitus complication status: with hyperglycemia Diabetes mellitus club room attendant insulin use: with club room attendant use Qualified Code(s): E11.65 - Type 2 diabetes mellitus with hyperglycemia; Z79.4 - vamp maker (current) use of insulin (5) Peripheral arterial disease: CODE(S): I73.9 - Peripheral vascular disease, unspecified (6) Diabetic foot ulcer with osteomyelitis: CODE(S): E11.621 - Type 2 diabetes mellitus with foot ulcer; E11.69 - Type 2 diabetes mellitus with other specified complication; L97.509 - Non-pressure chronic ulcer of other part of unspecified foot with unspecified severity; M86.9 - Osteomyelitis, unspecified (7) Diabetes mellitus with diabetic polyneuropathy: CODE(S): E11.42 - Type 2 diabetes mellitus with diabetic polyneuropathy QUALIFIERS: Diabetes mellitus club room attendant insulin use: with club room attendant use Diabetes mellitus type: type 2 Qualified Code(s): E11.42 - Type 2 diabetes mellitus with diabetic polyneuropathy; Z79.4 - vamp maker (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
[2023-11-21 10:44] VITALS: BP 175/89; BP 197/88; PULSE 81; PULSE 91; RESP 15; RESP 16; TEMP 36.7; TEMP 37.1
[2023-11-21 10:55] LABS: Bedside Glucose 130 mg/dL (74-106)
[2023-11-22 08:26] LABS: Bedside Glucose 228 mg/dL (74-106)
[2023-11-22 10:31] LABS: Bedside Glucose 216 mg/dL (74-106)
[2023-11-22 10:45] VITALS: BP 151/83; BP 182/92; PULSE 83; PULSE 84; RESP 15; RESP 16; TEMP 36.8
--- NOTE | 2023-11-22 12:33 | HBO.PN.PCM_ITS ---
History of Present Illness Date of Service: 11/22/23 Chief Complaint: Right foot ulceration History of Wound: Ms. Sawyer is a 63-year-old currently being seen at the wound center for right foot ulcer. History of diabetes mellitus type 2 and following recent MRI, diagnosed with osteomyelitis. Per documentation, Mayes stage III. Due to history of diabetic foot wound and osteomyelitis, she has been recommended for hyperbaric oxygen therapy. Comorbidities include coronary artery disease status post CABG. No known history of recurrent ear infections, COPD or tobacco use. She also denies any seizure episodes. She does however report variable blood glucose readings with frequent low blood glucose readings. Currently on insulin. Has continuous glucose monitoring. Recently had an EKG and a chest x-ray done with no acute concerns. She has no acute concerns at this time. Progress of Wound: Progress: Today represents her 15th of 30 planned HBO treatment sessions. Tolerance: Hyperbaric oxygen treatment was administered as per the facility's protocol at 2.0 PILO in 100% oxygen for 90 minutes without air breaks. The patient tolerated hyperbaric oxygen therapy without complaints or complications. Pre and post blood glucose levels as documented. Upon emergence from the hyperbaric chamber, her vitals remained stable and she was discharged in stable condition. Subjective Subjective Patient has no concerns and doing well Objective Data Objective Data Tolerated 15 of 30th treatment and has no complaints vital signs stayed stable blood sugars were good Vital Signs: Vital Signs Temp Pulse Resp BP 98.2 F 83 16 151/83 H 11/22/23 10:45 11/22/23 10:45 11/22/23 10:45 11/22/23 10:45 Weight: 200 lb Body Mass Index (BMI) 34.3 Lab / Micro Data Labs: Laboratory Results - last 24 hr 11/22/23 08:08: POC Glucose 228 H 11/22/23 10:13: POC Glucose 216 H Exam Physical Exam Const alert, oriented x3 and no apparent distress General Appearance: cooperative HEENT normocephalic and TM's normal bilaterally Eyes General Eye: normal appearance of both eyes Resp normal respiratory effort, no use of accessory muscles and clear to auscultation bilaterally Effort and Inspection: able to speak in complete sentences Cardio regular rate and regular rhythm Psych affect normal Assessment/Plan Assessment/Plan (1) Osteomyelitis: CODE(S): M86.9 - Osteomyelitis, unspecified QUALIFIERS: Osteomyelitis type: unspecified type Osteomyelitis location: foot Laterality: right Qualified Code(s): M86.9 - Osteomyelitis, unspecified (2) Type 2 diabetes mellitus with foot ulcer: CODE(S): E11.621 - Type 2 diabetes mellitus with foot ulcer; L97.509 - Non-pressure chronic ulcer of other part of unspecified foot with unspecified severity QUALIFIERS: Diabetes mellitus terminal computer operator insulin use: with long te rm use Qualified Code(s): E11.621 - Type 2 diabetes mellitus with foot ulcer; L97.509 - Non-pressure chronic ulcer of other part of unspecified foot with unspecified severity; Z79.4 - exterminator helper (current) use of insulin (3) Non-pressure chronic 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: CODE(S): L97.513 - Non-pressure chronic 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 (4) Type 2 diabetes mellitus: CODE(S): E11.9 - Type 2 diabetes mellitus without complications QUALIFIERS: Diabetes mellitus skilled nursing insulin use: with skilled nursing use Diabetes mellitus complication status: with hyperglycemia Qualified Code(s): E11.65 - Type 2 diabetes mellitus with hyperglycemia; Z79.4 - penitentiary (current) use of insulin (5) Peripheral arterial disease: CODE(S): I73.9 - Peripheral vascular disease, unspecified (6) Diabetic foot ulcer with osteomyelitis: CODE(S): E11.621 - Type 2 diabetes mellitus with foot ulcer; E11.69 - Type 2 diabetes mellitus with other specified complication; L97.509 - Non-pressure chronic ulcer of other part of unspecified foot with unspecified severity; M86.9 - Osteomyelitis, unspecified (7) Diabetes mellitus with diabetic polyneuropathy: CODE(S): E11.42 - Type 2 diabetes mellitus with diabetic polyneuropathy QUALIFIERS: Diabetes mellitus type: type 2 Diabetes mellitus terminal computer operator insulin use: with terminal computer operator use Qualified Code(s): E11.42 - Type 2 diabetes mellitus with diabetic polyneuropathy; Z79.4 - exterminator helper (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
--- NOTE | 2023-11-23 09:25 | PCM.HBO.PN ---
History of Present Illness Date of Service: 11/23/23 Chief Complaint: Right foot ulceration History of Wound: Ms. Sawyer is a 63-year-old currently being seen at the wound center for right foot ulcer. History of diabetes mellitus type 2 and following recent MRI, diagnosed with osteomyelitis. Per documentation, Mayes stage III. Due to history of diabetic foot wound and osteomyelitis, she has been recommended for hyperbaric oxygen therapy. Comorbidities include coronary artery disease status post CABG. No known history of recurrent ear infections, COPD or tobacco use. She also denies any seizure episodes. She does however report variable blood glucose readings with frequent low blood glucose readings. Currently on insulin. Has continuous glucose monitoring. Recently had an EKG and a chest x-ray done with no acute concerns. She has no acute concerns at this time. Progress of Wound: Patient comes in for HBOT this morning. She states that he blood sugar was high this morning and she took her fast acting insulin, which she typically waits until after HBOT to take. Her initial BGT was 270. Waited 15 minutes and it came down to 246. The concern for today is she has dropped almost 100 points while doing HBOT without her fast acting insulin. I have decided since she took her fast acting insulin, I would like her not to have her HBOT today, simply because she seems to be dropping her levels fast and do not want any complications during her HBOT treatment. Discussed this with the patient and she verbalizes understanding. Objective Data Objective Data Vital Signs: Vital Signs Temp Pulse Resp BP 98.2 F 83 16 151/83 H 11/22/23 10:45 11/22/23 10:45 11/22/23 10:45 11/22/23 10:45 Weight: 200 lb Body Mass Index (BMI) 34.3 Lab / Micro Data Labs: Laboratory Results - last 24 hr 11/22/23 10:13: POC Glucose 216 H Charges/Coding Visit Charges Office Visits / Consults: [id number] OV L2 Est 10min Assessment/Plan Assessment/Plan (1) Osteomyelitis: CODE(S): M86.9 - Osteomyelitis, unspecified QUALIFIERS: Osteomyelitis type: unspecified type Osteomyelitis location: foot Laterality: right Qualified Code(s): M86.9 - Osteomyelitis, unspecified (2) Type 2 diabetes mellitus with foot ulcer: CODE(S): E11.621 - Type 2 diabetes mellitus with foot ulcer; L97.509 - Non-pressure chronic ulcer of other part of unspecified foot with unspecified severity QUALIFIERS: Diabetes mellitus termite renewal inspector insulin use: with residential use Qualified Code(s): E11.621 - Type 2 diabetes mellitus with foot ulcer; L97.509 - Non-pressure chronic ulcer of other part of unspecified foot with unspecified severity; Z79.4 - keno terminal operator (current) use of insulin (3) Non-pressure chronic 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: CODE(S): L97.513 - Non-pressure chronic 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 (4) Type 2 diabetes mellitus: CODE(S): E11.9 - Type 2 diabetes mellitus without complications QUALIFIERS: Diabetes mellitus termite renewal inspector insulin use: with residential use Diabetes mellitus complication status: with hyperglycemia Qualified Code(s): E11.65 - Type 2 diabetes mellitus with hyperglycemia; Z79.4 - keno terminal operator (current) use of insulin (5) Peripheral arterial disease: CODE(S): I73.9 - Peripheral vascular disease, unspecified (6) Diabetic foot ulcer with osteomyelitis: CODE(S): E11.621 - Type 2 diabetes mellitus with foot ulcer; E11.69 - Type 2 diabetes mellitus with other specified complication; L97.509 - Non-pressure chronic ulcer of other part of unspecified foot with unspecified severity; M86.9 - Osteomyelitis, unspecified (7) Diabetes mellitus with diabetic polyneuropathy: CODE(S): E11.42 - Type 2 diabetes mellitus with diabetic polyneuropathy QUALIFIERS: Diabetes mellitus type: type 2 Diabetes mellitus termite renewal inspector insulin use: with residential use Qualified Code(s): E11.42 - Type 2 diabetes mellitus with diabetic polyneuropathy; Z79.4 - retirement (current) use of insulin PLAN: Plan Will not do HBOT today due to blood sugar instability.
[2023-11-23 09:28] LABS: Bedside Glucose 270 mg/dL (74-106)
[2023-11-23 09:28] LABS: Bedside Glucose 246 mg/dL (74-106)
[2023-11-24 08:46] LABS: Bedside Glucose 185 mg/dL (74-106)
[2023-11-24 10:56] LABS: Bedside Glucose 127 mg/dL (74-106)
[2023-11-24 11:13] VITALS: BP 148/81; BP 169/98; PULSE 84; PULSE 86; RESP 14; TEMP 36.1; TEMP 37.1
--- NOTE | 2023-11-24 14:35 | PCM.HBO.PN ---
History of Present Illness Date of Service: 11/24/23 Chief Complaint: Right foot ulceration History of Wound: Ms. Sawyer is a 63-year-old currently being seen at the wound center for right foot ulcer. History of diabetes mellitus type 2 and following recent MRI, diagnosed with osteomyelitis. Per documentation, Mayes stage III. Due to history of diabetic foot wound and osteomyelitis, she has been recommended for hyperbaric oxygen therapy. Comorbidities include coronary artery disease status post CABG. No known history of recurrent ear infections, COPD or tobacco use. She also denies any seizure episodes. She does however report variable blood glucose readings with frequent low blood glucose readings. Currently on insulin. Has continuous glucose monitoring. Recently had an EKG and a chest x-ray done with no acute concerns. She has no acute concerns at this time. Progress of Wound: Progress: Today is the 16th treatment of hyperbaric oxygen therapy. The patient is scheduled for 30 treatments total. Tolerance of hyperbaric oxygen therapy: Hyperbaric oxygen treatment was provided as per the facility's protocol at 2.0 PILO in 100% oxygen for 90 minutes without air breaks. The patient tolerated hyperbaric oxygen well, without complications or complaints. Upon emergence of the hyperbaric chamber, the patient's vital signs remained stable. Blood sugar levels as documented. Objective Data Objective Data Vital Signs: Vital Signs Temp Pulse Resp BP 96.9 F L 86 14 148/81 H 11/24/23 11:13 11/24/23 11:13 11/24/23 11:13 11/24/23 11:13 Weight: 90.718 kg Body Mass Index (BMI) 34.3 Lab / Micro Data Attestation: I reviewed the patient's lab results. Labs: Laboratory Results - last 24 hr 11/24/23 08:27: POC Glucose 185 H 11/24/23 10:38: POC Glucose 127 H Exam Physical Exam Const alert, oriented x3 and no apparent distress Psych mental status grossly normal, thought process normal, cooperative, affect normal and speech normal Assessment/Plan Assessment/Plan (1) Type 2 diabetes mellitus with foot ulcer: CODE(S): E11.621 - Type 2 diabetes mellitus with foot ulcer; L97.509 - Non-pressure chronic ulcer of other part of unspecified foot with unspecified severity QUALIFIERS: Diabetes mellitus director long term care insulin use: with director long term care use Qualified Code(s): E11.621 - Type 2 diabetes mellitus with foot ulcer; L97.509 - Non-pressure chronic ulcer of other part of unspecified foot with unspecified severity; Z79.4 - termite control service representative (current) use of insulin (2) Osteomyelitis: CODE(S): M86.9 - Osteomyelitis, unspecified QUALIFIERS: Osteomyelitis type: unspecified type Osteomyelitis location: foot Laterality: right Qualified Code(s): M86.9 - Osteomyelitis, unspecified (3) Non-pressure chronic 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: CODE(S): L97.513 - Non-pressure chronic 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 (4) Type 2 diabetes mellitus: CODE(S): E11.9 - Type 2 diabetes mellitus without complications QUALIFIERS: Diabetes mellitus director long term care insulin use: with intermediate use Diabetes mellitus complication status: with hyperglycemia Qualified Code(s): E11.65 - Type 2 diabetes mellitus with hyperglycemia; Z79.4 - senior living (current) use of insulin (5) Peripheral arterial disease: CODE(S): I73.9 - Peripheral vascular disease, unspecified (6) Diabetic foot ulcer with osteomyelitis: CODE(S): E11.621 - Type 2 diabetes mellitus with foot ulcer; E11.69 - Type 2 diabetes mellitus with other specified complication; L97.509 - Non-pressure chronic ulcer of other part of unspecified foot with unspecified severity; M86.9 - Osteomyelitis, unspecified (7) Diabetes mellitus with diabetic polyneuropathy: CODE(S): E11.42 - Type 2 diabetes mellitus with diabetic polyneuropathy QUALIFIERS: Diabetes mellitus type: type 2 Diabetes mellitus intermediate insulin use: with intermediate use Qualified Code(s): E11.42 - Type 2 diabetes mellitus with diabetic polyneuropathy; Z79.4 - termite control service representative (current) use of insulin (8) Essential (primary) hypertension: CODE(S): I10 - Essential (primary) hypertension PLAN: Plan The patient tolerated hyperbaric oxygen therapy well which will be continued per her medical plan. This note was generated with [employer] software. It may contain incorrect words, spelling, and punctuation that were not noted in checking the note before signing.
[2023-11-27 08:24] LABS: Bedside Glucose 201 mg/dL (74-106)
--- NOTE | 2023-11-27 08:51 | PCM.HBO.PN ---
History of Present Illness Date of Service: 11/27/23 Chief Complaint: Right foot ulceration History of Wound: Ms. Sawyer is a 63-year-old currently being seen at the wound center for right foot ulcer. History of diabetes mellitus type 2 and following recent MRI, diagnosed with osteomyelitis. Per documentation, Mayes stage III. Due to history of diabetic foot wound and osteomyelitis, she has been recommended for hyperbaric oxygen therapy. Comorbidities include coronary artery disease status post CABG. No known history of recurrent ear infections, COPD or tobacco use. She also denies any seizure episodes. She does however report variable blood glucose readings with frequent low blood glucose readings. Currently on insulin. Has continuous glucose monitoring. Recently had an EKG and a chest x-ray done with no acute concerns. She has no acute concerns at this time. Progress of Wound: Progress: Today is the 17th treatment of hyperbaric oxygen therapy. The patient is scheduled for 30 treatments total. Tolerance of hyperbaric oxygen therapy: Hyperbaric oxygen treatment was provided as per the facility's protocol at 2.0 PILO in 100% oxygen for 90 minutes without air breaks. The patient tolerated hyperbaric oxygen well, without complications or complaints. Upon emergence of the hyperbaric chamber, the patient's vital signs remained stable. Blood sugar levels as documented. Objective Data Objective Data Vital Signs: Vital Signs Temp Pulse Resp BP 96.9 F L 86 14 148/81 H 11/24/23 11:13 11/24/23 11:13 11/24/23 11:13 11/24/23 11:13 Weight: 200 lb Body Mass Index (BMI) 34.3 Lab / Micro Data Labs: Laboratory Results - last 24 hr 11/27/23 08:06: POC Glucose 201 H Exam Physical Exam Const alert, oriented x3 and no apparent distress General Appearance: cooperative HEENT normocephalic and TM's normal bilaterally Eyes General Eye: normal appearance of both eyes Resp normal respiratory effort, no use of accessory muscles and clear to auscultation bilaterally Effort and Inspection: able to speak in complete sentences Cardio regular rate and regular rhythm Psych affect normal Charges/Coding Wound Center CF Procedures HBO Supervision: [id number] Hyperbaric Oxygen; supervision Assessment/Plan Assessment/Plan (1) Type 2 diabetes mellitus with foot ulcer: CODE(S): E11.621 - Type 2 diabetes mellitus with foot ulcer; L97.509 - Non-pressure chronic ulcer of other part of unspecified foot with unspecified severity QUALIFIERS: Diabetes mellitus termite renewal inspector insulin use: with alf use Qualified Code(s): E11.621 - Type 2 diabetes mellitus with foot ulcer; L97.509 - Non-pressure chronic ulcer of other part of unspecified foot with unspecified severity; Z79.4 - superintendent marine oil terminal (current) use of insulin (2) Osteomyelitis: CODE(S): M86.9 - Osteomyelitis, unspecified QUALIFIERS: Laterality: right Osteomyelitis location: foot Osteomyelitis type: unspecified type Qualified Code(s): M86.9 - Osteomyelitis, unspecified (3) Non-pressure chronic 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: CODE(S): L97.513 - Non-pressure chronic 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 (4) Type 2 diabetes mellitus: CODE(S): E11.9 - Type 2 diabetes mellitus without complications QUALIFIERS: Diabetes mellitus complication status: with hyperglycemia Diabetes mellitus alf insulin use: with termite renewal inspector use Qualified Code(s): E11.65 - Type 2 diabetes mellitus with hyperglycemia; Z79.4 - superintendent marine oil terminal (current) use of insulin (5) Peripheral arterial disease: CODE(S): I73.9 - Peripheral vascular disease, unspecified (6) Diabetic foot ulcer with osteomyelitis: CODE(S): E11.621 - Type 2 diabetes mellitus with foot ulcer; E11.69 - Type 2 diabetes mellitus with other specified complication; L97.509 - Non-pressure chronic ulcer of other part of unspecified foot with unspecified severity; M86.9 - Osteomyelitis, unspecified (7) Diabetes mellitus with diabetic polyneuropathy: CODE(S): E11.42 - Type 2 diabetes mellitus with diabetic polyneuropathy QUALIFIERS: Diabetes mellitus termite renewal inspector insulin use: with termite renewal inspector use Diabetes mellitus type: type 2 Qualified Code(s): E11.42 - Type 2 diabetes mellitus with diabetic polyneuropathy; Z79.4 - shelter (current) use of insulin (8) Essential (primary) hypertension: CODE(S): I10 - Essential (primary) hypertension PLAN: Plan The patient tolerated hyperbaric oxygen therapy well which will be continued per her medical plan.
[2023-11-27 10:49] VITALS: BP 155/83; BP 160/56; PULSE 73; PULSE 82; RESP 16; RESP 18; TEMP 36.9
[2023-11-27 10:49] LABS: Bedside Glucose 107 mg/dL (74-106)
[2023-11-28 08:44] LABS: Bedside Glucose 214 mg/dL (74-106)
[2023-11-28 10:49] LABS: Bedside Glucose 105 mg/dL (74-106)
[2023-11-28 11:31] VITALS: BP 166/92; BP 185/88; PULSE 77; PULSE 79; RESP 15; RESP 16; TEMP 36.3; TEMP 36.8
[2023-11-29 08:39] LABS: Bedside Glucose 215 mg/dL (74-106)
[2023-11-29 10:51] VITALS: BP 145/93; BP 173/7; PULSE 79; PULSE 84; RESP 14; RESP 15; TEMP 36.9; TEMP 37
[2023-11-29 10:52] LABS: Bedside Glucose 158 mg/dL (74-106)
--- NOTE | 2023-11-29 12:12 | HBO.PN.PCM_ITS ---
History of Present Illness Date of Service: 11/29/23 Chief Complaint: Right foot ulceration History of Wound: Ms. Sawyer is a 63-year-old currently being seen at the wound center for right foot ulcer. History of diabetes mellitus type 2 and following recent MRI, diagnosed with osteomyelitis. Per documentation, Mayes stage III. Due to history of diabetic foot wound and osteomyelitis, she has been recommended for hyperbaric oxygen therapy. Comorbidities include coronary artery disease status post CABG. No known history of recurrent ear infections, COPD or tobacco use. She also denies any seizure episodes. She does however report variable blood glucose readings with frequent low blood glucose readings. Currently on insulin. Has continuous glucose monitoring. Recently had an EKG and a chest x-ray done with no acute concerns. She has no acute concerns at this time. Progress of Wound: Progress: Today is the treatment of hyperbaric oxygen therapy. The patient is scheduled for 30 treatments total. Tolerance of hyperbaric oxygen therapy: Hyperbaric oxygen treatment was provided as per the facility's protocol at 2.0 PILO in 100% oxygen for 90 minutes without air breaks. The patient tolerated hyperbaric oxygen well, without complications or complaints. Upon emergence of the hyperbaric chamber, the patient's vital signs remained stable. Blood sugar levels as documented. Subjective Subjective Patient has no concerns and tolerating treatments well Objective Data Objective Data Vital signs are stable with no issues with her blood sugars Vital Signs: Vital Signs Temp Pulse Resp BP 98.6 F 84 14 173/7 H 11/29/23 10:51 11/29/23 10:51 11/29/23 10:51 11/29/23 10:51 Weight: 200 lb Body Mass Index (BMI) 34.3 Lab / Micro Data Labs: Laboratory Results - last 24 hr 11/29/23 08:22: POC Glucose 215 H 11/29/23 10:34: POC Glucose 158 H Exam Physical Exam Const alert, oriented x3 and no apparent distress General Appearance: cooperative HEENT normocephalic and TM's normal bilaterally Eyes General Eye: normal appearance of both eyes Resp normal respiratory effort, no use of accessory muscles and clear to auscultation bilaterally Effort and Inspection: able to speak in complete sentences Cardio regular rate and regular rhythm Psych affect normal Nursing Assessment and Debridement Post-Debridement Measurements and Additional Note: Post-Debridement Measurements/Treatment WC - Nurse 3 - General Ulcer D/C NN Start: 11/14/23 10:45 Freq: Status: Active Protocol: Activity Type Activity Date Activity User E-sign Co-sign Detail Recorded Client Recorded Date Recorded By Document 11/27/23 10:49 JF 11/27/23 10:53 JF 11/27/23 10:49 Pain Scale: 0-10 Numeric Is Patient Pain Free? Yes WC - Visit Discharge Discharge Condition Stable Ambulatory Status Ambulatory Transportation Private Auto Accompanied by scheduled tranport provided Medication Reconcilliation completed & No provided to patient/care provider Clinical Summary of Care Provided No Assessment/Plan Assessment/Plan (1) Type 2 diabetes mellitus with foot ulcer: CODE(S): E11.621 - Type 2 diabetes mellitus with foot ulcer; L97.509 - Non-pressure chronic ulcer of other part of unspecified foot with unspecified severity QUALIFIERS: Diabetes mellitus long term care pharmacist insulin use: with long term care pharmacist use Qualified Code(s): E11.621 - Type 2 diabetes mellitus with foot ulcer; L97.509 - Non-pressure chronic ulcer of other part of unspecified foot with unspecified severity; Z79.4 - [facility] (current) use of insulin (2) Osteomyelitis: CODE(S): M86.9 - Osteomyelitis, unspecified QUALIFIERS: Osteomyelitis type: unspecified type Osteomyelitis location: foot Laterality: right Qualified Code(s): M86.9 - Osteomyelitis, unspecified (3) Non-pressure chronic 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: CODE(S): L97.513 - Non-pressure chronic 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 (4) Type 2 diabetes mellitus: CODE(S): E11.9 - Type 2 diabetes mellitus without complications QUALIFIERS: Diabetes mellitus long term care pharmacist insulin use: with long term care pharmacist use Diabetes mellitus complication status: with hyperglycemia Qualified Code(s): E11.65 - Type 2 diabetes mellitus with hyperglycemia; Z79.4 - intermediate project manager (current) use of insulin (5) Peripheral arterial disease: CODE(S): I73.9 - Peripheral vascular disease, unspecified (6) Diabetic foot ulcer with osteomyelitis: CODE(S): E11.621 - Type 2 diabetes mellitus with foot ulcer; E11.69 - Type 2 diabetes mellitus with other specified complication; L97.509 - Non-pressure chronic ulcer of other part of unspecified foot with unspecified severity; M86.9 - Osteomyelitis, unspecified (7) Diabetes mellitus with diabetic polyneuropathy: CODE(S): E11.42 - Type 2 diabetes mellitus with diabetic polyneuropathy QUALIFIERS: Diabetes mellitus type: type 2 Diabetes mellitus long term care pharmacist insulin use: with long term care pharmacist use Qualified Code(s): E11.42 - Type 2 diabetes mellitus with diabetic polyneuropathy; Z79.4 - [facility] (current) use of insulin (8) Essential (primary) hypertension: CODE(S): I10 - Essential (primary) hypertension PLAN: Plan The patient tolerated hyperbaric oxygen therapy well which will be continued per her medical plan.
[2023-11-30 08:45] LABS: Bedside Glucose 186 mg/dL (74-106)
--- NOTE | 2023-11-30 08:55 | HBO.PN.PCM_ITS ---
History of Present Illness Date of Service: 11/30/23 Chief Complaint: Right foot ulceration History of Wound: Ms. Sawyer is a 63-year-old currently being seen at the wound center for right foot ulcer. History of diabetes mellitus type 2 and following recent MRI, diagnosed with osteomyelitis. Per documentation, Mayes stage III. Due to history of diabetic foot wound and osteomyelitis, she has been recommended for hyperbaric oxygen therapy. Comorbidities include coronary artery disease status post CABG. No known history of recurrent ear infections, COPD or tobacco use. She also denies any seizure episodes. She does however report variable blood glucose readings with frequent low blood glucose readings. Currently on insulin. Has continuous glucose monitoring. Recently had an EKG and a chest x-ray done with no acute concerns. She has no acute concerns at this time. Progress of Wound: Progress: This represents her 20th hyperbaric oxygen therapy treatment. She has been approved for 30 sessions. Tolerance of hyperbaric oxygen therapy: Hyperbaric oxygen treatment was provided as per the facility's protocol at 2.0 PILO in 100% oxygen for 90 minutes without air breaks. The patient tolerated hyperbaric oxygen well, without complications or complaints. Upon emergence of the hyperbaric chamber, the patient's vital signs remained stable. Blood sugar levels as documented. Objective Data Objective Data Vital Signs: Vital Signs Temp Pulse Resp BP 98.6 F 84 14 173/7 H 11/29/23 10:51 11/29/23 10:51 11/29/23 10:51 11/29/23 10:51 Weight: 200 lb Body Mass Index (BMI) 34.3 Lab / Micro Data Labs: Laboratory Results - last 24 hr 11/29/23 10:34: POC Glucose 158 H 11/30/23 08:27: POC Glucose 186 H Exam Physical Exam Const alert, oriented x3 and no apparent distress General Appearance: cooperative and comfortable HEENT normocephalic and head/scalp atraumatic Tympanic Membrane: TM's normal bilaterally Eyes EOMs intact bilaterally Neck full ROM and supple General: normal visual inspection Resp normal respiratory effort Effort and Inspection: able to speak in complete sentences Neuro oriented x3, CN's II-XII intact bilaterally, moves all extremities and no focal motor deficits Psych mental status grossly normal, thought process normal, cooperative, affect normal and speech normal Nursing Assessment and Debridement Post-Debridement Measurements and Additional Note: Post-Debridement Measurements/Treatment WC - Nurse 3 - General Ulcer D/C NN Start: 11/14/23 10:45 Freq: Status: Active Protocol: Activity Type Activity Date Activity User E-sign Co-sign Detail Recorded Client Recorded Date Recorded By Document 11/27/23 10:49 JF 00 11/27/23 10:53 JF 11/27/23 10:49 Pain Scale: 0-10 Numeric Is Patient Pain Free? Yes WC - Visit Discharge Discharge Condition Stable Ambulatory Status Ambulatory Transportation Private Auto Accompanied by scheduled tranport provided Medication Reconcilliation completed & No provided to patient/care provider Clinical Summary of Care Provided No Charges/Coding Wound Center CF Procedures HBO Supervision: [id number] Hyperbaric Oxygen; supervision Assessment/Plan Assessment/Plan (1) Type 2 diabetes mellitus with foot ulcer: CODE(S): E11.621 - Type 2 diabetes mellitus with foot ulcer; L97.509 - Non-pressure chronic ulcer of other part of unspecified foot with unspecified severity QUALIFIERS: Diabetes mellitus custodial insulin use: with custodial use Qualified Code(s): E11.621 - Type 2 diabetes mellitus with foot ulcer; L97.509 - Non-pressure chronic ulcer of other part of unspecified foot with un specified severity; Z79.4 - termite exterminator (current) use of insulin (2) Osteomyelitis: CODE(S): M86.9 - Osteomyelitis, unspecified QUALIFIERS: Laterality: right Osteomyelitis location: foot Osteomyelitis type: unspecified type Qualified Code(s): M86.9 - Osteomyelitis, unspecified (3) Non-pressure chronic 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: CODE(S): L97.513 - Non-pressure chronic 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 (4) Type 2 diabetes mellitus: CODE(S): E11.9 - Type 2 diabetes mellitus without complications QUALIFIERS: Diabetes mellitus complication status: with hyperglycemia Diabetes mellitus salvage determiner insulin use: with salvage determiner use Qualified Code(s): E11.65 - Type 2 diabetes mellitus with hyperglycemia; Z79.4 - senior care (current) use of insulin (5) Peripheral arterial disease: CODE(S): I73.9 - Peripheral vascular disease, unspecified PLAN: Plan Ms. Sawyer has continued to tolerate hyperbaric oxygen therapy well. As above, this is her 20th session. She has only missed 1 due to blood glucose concerns. There has been some improvement in her diabetic foot ulcer. I believe she stands to benefit from continued hyperbaric oxygen therapy and would recommend 30 more sessions. I do not anticipate any significant concerns as she has tolerated it well so far. Continue current sessions as per her medical plan. This note was generated with [employer] dictation software. It may contain incorrect words, spelling, and punctuation that were not noted in checking the note before signing.
--- NOTE | 2023-11-30 10:36 | PCM.WC.PN ---
History of Present Illness Date of Service: 11/30/23 Chief Complaint: Right foot ulceration History of Wound: Ms. Sawyer is a 63-year-old currently being seen at the wound center for right foot ulcer. History of diabetes mellitus type 2 and following recent MRI, diagnosed with osteomyelitis. Per documentation, Mayes stage III. Due to history of diabetic foot wound and osteomyelitis, she has been recommended for hyperbaric oxygen therapy. Comorbidities include coronary artery disease status post CABG. No known history of recurrent ear infections, COPD or tobacco use. She also denies any seizure episodes. She does however report variable blood glucose readings with frequent low blood glucose readings. Currently on insulin. Has continuous glucose monitoring. Recently had an EKG and a chest x-ray done with no acute concerns. She has no acute concerns at this time. Progress of Wound: Progress: This represents her 20th hyperbaric oxygen therapy treatment. She has been approved for 30 sessions. Tolerance of hyperbaric oxygen therapy: Hyperbaric oxygen treatment was provided as per the facility's protocol at 2.0 PILO in 100% oxygen for 90 minutes without air breaks. The patient tolerated hyperbaric oxygen well, without complications or complaints. Upon emergence of the hyperbaric chamber, the patient's vital signs remained stable. Blood sugar levels as documented. Subjective Subjective This is a 63-year-old female who follows up to the wound center for continued care of a plantar lateral fifth metatarsal head ulceration of the right foot. She has left grafting product in place to the right foot ulcerative site and has changed outer dressings as needed. She does continue hyperbaric dives and states these are going well. Continues offloading and surgical shoe with fifth ray cut out. Denies constitutional symptoms. Denies further complaints. Objective Data Objective Data Vital Signs: Vital Signs Temp Pulse Resp BP 98.6 F 84 14 173/7 H 11/29/23 10:51 11/29/23 10:51 11/29/23 10:51 11/29/23 10:51 Weight: 90.718 kg Body Mass Index (BMI) 34.3 Lab / Micro Data Labs: Laboratory Results - last 24 hr 11/29/23 10:34: POC Glucose 158 H 11/30/23 08:27: POC Glucose 186 H Physical Exam Const alert, oriented x3 and no apparent distress General Appearance: cooperative HEENT normocephalic Eyes General Eye: normal appearance of both eyes Neck General: normal visual inspection Lymph Lymphatic: no lymphadenopathy noted and no lymphedema noted Resp normal respiratory effort Cardio regular rate and regular rhythm Extremity normal capillary refill, no calf tenderness and no pedal edema Extremity Narrative: Right lower extremity: Vascular: DP and PT pulses nonpalpable. Doppler demonstrates monophasic DP and PT. CFT is less than 5 seconds to the digits. Hair growth is absent to digits. Normal temperature gradient is noted. No increased temperature about the ulcerative site. Neurologic: Protective sensation is absent consistent with diabetic peripheral polyneuropathy. Musculoskeletal: Muscle strength 5 of 5 age-appropriate. 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 Decreased range of motion of the first metatarsophalangeal joint without pain or crepitus. Decreased range of motion of the ankle joint in dorsiflexion with the knee extended without pain or crepitus. Dermatologic: There is a full-thickness ulceration noted at the plantar lateral aspect of the fifth metatarsal head tailor's bunion deformity with surrounding hyperkeratosis. Granular ulcerative bed. Predebridement ulceration measures 1.3 cm x 1.0 cm. Ulceration does not probe to bone. No palpable fluctuance/bogginess. No visible abscess formation. No purulent drainage. No lymphangitic streaking or soft tissue crepitus noted. Skin no rashes or lesions noted, skin turgor normal and no jaundice Neuro moves all extremities Debridement Note Debridement Note Wound debrided: Subfifth metatarsal head right foot Laterality: Right Wound Grade/Stage: Mayes stage III Type of Debridement: Excisional debridement Anesthesia Used: 5% Lidocaine Gel Depth: Down to and including healthy tissue and in the subcutaneous layer Percentage of wound debrided: 100 Instrument Used: 5mm curette Tissue Removed: Fibrous, devitalized subcutaneous, biofilm, slough Severity: Fat Layer Exposed Amount of bleeding with debridement: Mild Bleeding Controlled with: Compression and gauze Patient tolerated procedure: Patient tolerated procedure well Post-Debridement Measurements and Additional Note: Post-Debridement Measurements/Treatment [place] - Nurse 1 - General Ulcer Assessment Start: 11/14/23 10:45 Freq: Status: Active Protocol: DEDRICK Activity Type Activity Date Activity User E-sign Co-sign Detail Recorded Client Recorded Date Recorded By Document 11/16/23 10:48 DL [id number] 11/16/23 10:54 DL 11/16/23 10:48 - Today's Visit Information Type of service Follow-up Visit (Physician/BRILLIANDEER LOOPER ) Arrival Mode Ambulatory Transfer Assistance None Patient Identification Verified (Name & Yes ) Patient Requires Transmission-Based No Precautions Height and Weight Body Mass Index (BMI) 34.3 BMI Classification Obese Vital Signs Temperature (97.8 F-99.1 F) 97.6 F L Temperature Source Temporal Pulse Rate (60-100) 82 Pulse Location Monitor Respiratory Rate (12-18) 18 Respiratory rate source Observation Blood Pressure (90/60-120/80) 158/89 H Blood Pressure Mean (mm Hg) 112 Source Monitor History Since Last Visit- (Skip if this is Patient's initial visit) Have you changed medications since your No last visit? Any new allergies or adverse reactions No Had a fall/change in ADL's that may No increase risk of falls Signs or symptoms of abuse and/or No neglect since last visit Have you been in the hospital since your No last visit? Has dressing in place as prescribed Yes Has compression in place as prescribed N/A Has offloadiing in place as prescribed Yes Experienced any changes in pain level or No management Right Footwear Surgical Shoe with pressure relief insole Pain Scale: 0-10 Numeric Is Patient Pain Free? Yes - Nurse 1 - General Ulcer Measurement Start: 11/14/23 10:45 Freq: Status: Active Protocol: Activity Type Activity Date Activity User E-sign Co-sign Detail Recorded Client Recorded Date Recorded By Document 11/16/23 10:48 DL [id number] 11/16/23 10:54 DL 11/16/23 10:48 Wound Center Nurse 1 1. R FOOT PLANTAR LATERAL -Current Size (cm) - Length 1.3 -Current Size (cm) - Width 1.3 -Current Size (cm) - Depth 0.3 -Total Square Cm 1.69 -Exudate Amt Medium -Exudate Type Serosanguineous -Wound Margin Thickened & Rolled Under -Granulation Amt Medium (34-66%) -Granulation Quality [place],Red -Necrosis Amt Medium (34-66%) -Necrotic Tissue Type Adherent Slough -Structure Exposed N/A -Texture (Pema-wound Skin Appearance) Callus,Scarring -Moisture (Pema-wound Skin Appearance) Dry/Scaly -Color (Pema-wound Skin Appearance) No Abnormality -Temperature (Pema-wound Skin No Abnormality Appearance) (Pt Warm) -Tenderness on Palpation (Pema-wound No Skin Appearance) -Ulcer Cleansing Soap and Water -Foul Odor after Cleansing No -Anesthetic Used 5% Lidocaine Gel WC - Nurse 2 - General Ulcer CM Notes Start: 11/14/23 10:45 Freq: Status: Active Protocol: Activity Type Activity Date Activity User E-sign Co-sign Detail Recorded Client Recorded Date Recorded By Document 11/16/23 11:07 [facility] [id number] 11/16/23 11:18 [facility] 11/16/23 11:07 Wound Center Nurse 2 -Time 11:07 -Correct Patient Yes -Correct Side, Site, Position Yes -Correct Procedure Yes -Procedure Performed Yes -Type of Procedure Debridement -Clinical Debridement Subcutaneous -Tissue Removed Subcutaneous -Post Debridement (cm) - Length 1.5 -Post Debridement (cm) - Width 1.3 -Post Debridement (cm) - Depth 0.1 -Total Square (Post) (cm) 1.95 -Area of Debridement (cm) - Length 1.5 -Area of Debridement (cm) - Width 1.3 -Total Square (Area) (cm) 1.95 -Tunneling No -Undermining/Tunneling No -Circular Undermining No -Wound/Ulcer Outcome Not Healed -Ulcer Cleansing Rinsed/ Irrigated with Saline -Foul Odor after Cleansing No -Bioengineered Tissue Yes -Expiration Date 05/14/28 -Product Lot Number [id number] -Percent Used 100 -Lot number of Saline Used [id number] -Bleeding Controlled with Pressure -Treatment Response Procedure Tolerated Well -Type of Offloading Surgical Shoe -Debridement - Subq, 1st 20sq cm No -Apply Skin Sub - 1st 25 sq cm - Feet 1 -Epifix 18mm Disc 3 Pain Scale: 0-10 Numeric Is Patient Pain Free? Yes WC - Nurse 3 - General Ulcer D/C NN Start: 11/14/23 10:45 Freq: Status: Active Protocol: Activity Type Activity Date Activity User E-sign Co-sign Detail Recorded Client Recorded Date Recorded By Document 11/16/23 11:28 DL [id number] 11/16/23 11:29 DL Document 11/27/23 10:49 JF 00 11/27/23 10:53 JF 11/16/23 11/27/23 11:28 10:49 Wound Care Center Nurse 3 1. R FOOT PLANTAR LATERAL -Foul Odor after Cleansing No -Other Dressing epimesh -Primary Dressing Covered/Secured with Dry Gauze & Roll Gauze, Secured with Tape -Other Covering ABD Treatment Response Procedure Tolerated Well Pain Scale: 0-10 Numeric Is Patient Pain Free? Yes Yes WC - Visit Discharge Discharge Condition Stable Stable Ambulatory Status Ambulatory Ambulatory Transportation Private Auto Private Auto Accompanied by scheduled tranport provided Medication Reconcilliation completed & No provided to patient/care provider Clinical Summary of Care Provided No Assessment/Plan Assessment/Plan (1) Non-pressure chronic 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: CODE(S): L97.513 - Non-pressure chronic 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 (2) Diabetes mellitus with diabetic polyneuropathy: CODE(S): E11.42 - Type 2 diabetes mellitus with diabetic polyneuropathy QUALIFIERS: Diabetes mellitus [facility] insulin use: with [facility] use Diabetes mellitus type: type 2 Qualified Code(s): E11.42 - Type 2 diabetes mellitus with diabetic polyneuropathy; Z79.4 - intermediate (current) use of insulin (3) Type 2 diabetes mellitus with foot ulcer: CODE(S): E11.621 - Type 2 diabetes mellitus with foot ulcer; L97.509 - Non-pressure chronic ulcer of other part of unspecified foot with unspecified severity QUALIFIERS: Diabetes mellitus [place] insulin use: with [facility] use Qualified Code(s): E11.621 - Type 2 diabetes mellitus with foot ulcer; L97.509 - Non-pressure chronic ulcer of other part of unspecified foot with unspecified severity; Z79.4 - [employer] (current) use of insulin (4) Osteomyelitis: CODE(S): M86.9 - Osteomyelitis, unspecified QUALIFIERS: Laterality: right Osteomyelitis location: foot Osteomyelitis type: unspecified type Qualified Code(s): M86.9 - Osteomyelitis, unspecified (5) Hallux valgus of right foot: CODE(S): M20.11 - Hallux valgus (acquired), right foot (6) Tailor's bunion of right foot: CODE(S): M21.621 - Bunionette of right foot PLAN: Plan Patient seen and evaluated I have reviewed her previous note on 09/25/2023 from the [facility] and patient was placed on 10-day oral doxycycline with stop date of 10/05/2023. I have also reviewed imaging from 09/25/2023 demonstrating the subtle erosive change at the plantar lateral aspect of the fifth metatarsal which is questionable for osteomyelitis. Cultures were obtained of the wound. Cultures demonstrate: Providencia rettgeri, Streptococcus agalactiae (B), Streptococcus mitis, gram-negative carla, rare Pasteurella canis, Prevotella bivia, Fusobacterium nucleatum. She was prescribed continued course of oral doxycycline 100 mg twice daily x 14 days (stop date 10/26/2023) and oral Levofloxacin 750 mg daily x 14 days (stop date 10/26/2023) Predebridement measurement 1.3 cm x 1.0 cm Ulceration was debrided as noted in the clinical panel above. Postdebridement measurement 1.4 cm x 1.1 cm x 0.2 cm. Ulceration does not probe to bone and is granulating in well. EpiFix #2 applied to the wound base and anchored with Adaptic touch and Steri-Strips, dressed with dry sterile dressing. She was instructed to change outer dressing as needed. Surgical offloading shoe was given with fifth ray cut out for continued offloading. Discussed she is not to get the site wet. Will use cast bag to cover when showering. Ulceration demonstrates slight decrease in size versus previous visit. Healing well with Hyperbaric dives. Approved for advanced wound care product, EpiFix. Will continue application. Discussed her MRI from 10/05/2023 demonstrates focal marrow edema of the lateral aspect of the fifth metatarsal head, series 7 image 13 with overlying soft tissue swelling. Radiology states findings consistent with osteomyelitis. I do feel upon review that there is periostitis secondary to infection at the plantar lateral aspect but complete destruction is not visualized. Overall wound is improving with Dakin's and oral antibiotics. I have discussed options with her of both surgical and conservative. Discussed surgical options include amputation of the fifth metatarsal head and debridement of necrotic tissue. Discussed conservatively to continue the Dakin's with oral antibiotics and clearance for HBO therapy. Patient would like to try to continue the oral antibiotics with the HBO therapy as she does feel she can heal. I reviewed her labs for HBO clearance performed 10/13/23. WBC 8.9; Hgb 12.6; Hct 39.3; AST 16; ALT 15; CRP 9.56; albumin 3.0; prealbumin 18; sodium 139; potassium 3.8; chloride 101; CO2 30.0; BUN 19;Cr 0.96; glucose 145; HgbA1c 8.2%. She did see Dr. Garsia for clearance and has been cleared for HBO dives. She has started dives and will continue. She is tolerating dives well. Venous studies 10/13/23: Negative for acute DVT. Deep veins bilateral lower extremities patent and compressible segmentally. Positive reflux left saphenofemoral junction. LEAS: Right GARCÍA 0.87, moderate arterial insufficiency; Doppler and PVR waveforms demonstrate infrapopliteal disease. Left GARCÍA 0.41, severe arterial insufficiency. Doppler/PVR waveforms reveal distal SFA/popliteal and infrapopliteal disease. Patient will continue follow-up with Dr. Figueroa, vascular surgery. Discussed continuing to lower blood sugar as sugar today was 153 mg/dL. Last A1c was 9.0%, recently down to 8.2% on 10/13/23. She was encouraged for continued reduction. Discussed proper diabetic diet to aid in reduction of glucose and striving for A1c of under 7% to optimize healing. Patient is understanding of this. Discussed adequate protein to aid in wound healing. Tyson supplementation was also recommended. Discussed signs and symptoms of infection. Discussed that if she notices increasing redness about the ulcerative site that moves to on top of the foot and up the leg, any purulent drainage from the ulcerative site, increasing foul odor, or if she experiences fever greater than 101 degree accompanied by nausea, vomiting, chills that these are signs of a progressing infection and she should report to the ED for IV antibiotics and further evaluation. She is understanding of this today. The following work up and care recommendations were made: Dressing: EpiFix, Adaptic touch, Steri-Strips, dry sterile dressing. Change outer dressing as needed. Wash: Do not get wet Tissue growth optimization: EpiFix Offload: Surgical shoe with fifth ray cut out Vascular: Nonpalpable DP and PT pulses. LEAS were ordered 10/05/2023, awaiting results. Edema: No pedal edema noted Infection: Possible osteomyelitis fifth metatarsal head, MRI demonstrates acute osteo of the periphery of the periosteal tissue of the fifth metatarsal head. Rx doxycycline 100 mg twice daily x 14 days, levofloxacin 750 mg daily x 14 days. Stop date 10/26/2023 Pain: No pain secondary to diabetic peripheral polyneuropathy Host factors: DM type II with peripheral polyneuropathy, right-sided weakness post CVA in 2019, PVD, tailor's bunion deformity. I answered all the patient's questions. To return to the wound healing center in 1 week or call sooner if the patient has any questions or concerns.
[2023-11-30 10:54] VITALS: BP 143/83; BP 166/79; PULSE 84; PULSE 89; RESP 14; RESP 15; TEMP 36.2; TEMP 36.8
[2023-11-30 10:56] LABS: Bedside Glucose 100 mg/dL (74-106)
[2023-11-30 11:04] VITALS: BP 166/79; PULSE 89; RESP 14; TEMP 36.5; BMI 34.3
[2023-12-01 08:57] VITALS: BP 176/91; BP 186/96; PULSE 77; PULSE 80; RESP 16; TEMP 35.6; TEMP 35.8
[2023-12-01 09:21] LABS: Bedside Glucose 207 mg/dL (74-106)
[2023-12-01 11:10] LABS: Bedside Glucose 111 mg/dL (74-106)
--- NOTE | 2023-12-01 13:10 | HBO.PN.PCM_ITS ---
History of Present Illness Date of Service: 12/01/23 Chief Complaint: Right foot ulceration History of Wound: Ms. Sawyer is a 63-year-old currently being seen at the wound center for right foot ulcer. History of diabetes mellitus type 2 and following recent MRI, diagnosed with osteomyelitis. Per documentation, Mayes stage III. Due to history of diabetic foot wound and osteomyelitis, she has been recommended for hyperbaric oxygen therapy. Comorbidities include coronary artery disease status post CABG. No known history of recurrent ear infections, COPD or tobacco use. She also denies any seizure episodes. She does however report variable blood glucose readings with frequent low blood glucose readings. Currently on insulin. Has continuous glucose monitoring. Recently had an EKG and a chest x-ray done with no acute concerns. She has no acute concerns at this time. Progress of Wound: Progress: This represents her 21st hyperbaric oxygen therapy treatment. She has been approved for 30 sessions. Tolerance of hyperbaric oxygen therapy: Hyperbaric oxygen treatment was provided as per the facility's protocol at 2.0 PILO in 100% oxygen for 90 minutes without air breaks. The patient tolerated hyperbaric oxygen well, without complications or complaints. Upon emergence of the hyperbaric chamber, the patient's vital signs remained stable. Blood sugar levels as documented - 207 pre treatment and 111 post treatment. Objective Data Objective Data Vital Signs: Vital Signs Temp Pulse Resp BP 96.4 F L 80 16 176/91 H 12/01/23 08:57 12/01/23 08:57 12/01/23 08:57 12/01/23 08:57 Weight: 90.718 kg Body Mass Index (BMI) 34.3 Lab / Micro Data Labs: Laboratory Results - last 24 hr 12/01/23 08:38: POC Glucose 207 H 12/01/23 10:52: POC Glucose 111 H Exam Physical Exam Const alert, oriented x3 and no apparent distress Psych mental status grossly normal, thought process normal, cooperative, affect normal and speech normal Nursing Assessment and Debridement Post-Debridement Measurements and Additional Note: Post-Debridement Measurements/Treatment WC - Nurse 1 - General Ulcer Assessment Start: 11/14/23 10:45 Freq: Status: Active Protocol: ENID.LUCINDA Activity Type Activity Date Activity User E-sign Co-sign Detail Recorded Client Recorded Date Recorded By Document 11/30/23 11:04 DL [id number] 11/30/23 11:11 DL 11/30/23 11:04 - Today's Visit Information Type of service Follow-up Visit (Physician/AFTER [employer] PROGRAM DIRECTOR ) Arrival Mode Ambulatory Transfer Assistance None Patient Identification Verified (Name & Yes ) Patient Requires Transmission-Based No Precautions Height and Weight Body Mass Index (BMI) 34.3 BMI Classification Obese Vital Signs Temperature (97.8 F-99.1 F) 97.7 F L Temperature Source Temporal Pulse Rate (60-100) 89 Pulse Location Monitor Respiratory Rate (12-18) 14 Respiratory rate source Observation Blood Pressure (90/60-120/80) 166/79 H Blood Pressure Mean (mm Hg) 108 Source Monitor History Since Last Visit- (Skip if this is Patient's initial visit) Have you changed medications since your No last visit? Any new allergies or adverse reactions No Had a fall/change in ADL's that may No increase risk of falls Signs or symptoms of abuse and/or No neglect since last visit Have you been in the hospital since your No last visit? Has dressing in place as prescribed Yes Has compression in place as prescribed No Has offloadiing in place as prescribed Yes Experienced any changes in pain level or No management Pain Scale: 0-10 Numeric Is Patient Pain Free? Yes - Nurse 1 - General Ulcer Measurement Start: 11/14/23 10:45 Freq: Status: Active Protocol: Activity Type Activity Date Activity User E-sign Co-sign Detail Recorded Client Recorded Date Recorded By Document 11/30/23 11:04 [id number] 11/30/23 11:11 11/30/23 11:04 Wound Center Nurse 1 1. R FOOT PLANTAR LATERAL -Current Size (cm) - Length 1.4 -Current Size (cm) - Width 1.2 -Current Size (cm) - Depth 0.2 -Total Square Cm 1.68 -Exudate Amt Medium -Exudate Type Serosanguineous -Wound Margin Distinct, Outline Attached -Granulation Amt Large (67-100%) -Granulation Quality Red -Necrosis Amt None Present (0 %) -Structure Exposed N/A -Texture (Pema-wound Skin Appearance) Callus,Scarring -Moisture (Pema-wound Skin Appearance) No Abnormality -Color (Pema-wound Skin Appearance) No Abnormality -Temperature (Pema-wound Skin No Abnormality Appearance) (Pt Warm) -Tenderness on Palpation (Pema-wound No Skin Appearance) -Ulcer Cleansing Soap and Water -Foul Odor after Cleansing No -Anesthetic Used 5% Lidocaine Gel - Nurse 2 - General Ulcer CM Notes Start: 11/14/23 10:45 Freq: Status: Active Protocol: Activity Type Activity Date Activity User E-sign Co-sign Detail Recorded Client Recorded Date Recorded By Document 11/30/23 11:25 [facility] [id number] 11/30/23 11:31 [facility] 11/30/23 11:25 Wound Center Nurse 2 -Time 11:25 -Correct Patient Yes -Correct Side, Site, Position Yes -Correct Procedure Yes -Procedure Performed Yes -Type of Procedure Debridement -Clinical Debridement Subcutaneous -Tissue Removed Subcutaneous -Post Debridement (cm) - Length 1.4 -Post Debridement (cm) - Width 1.1 -Post Debridement (cm) - Depth 0.1 -Total Square (Post) (cm) 1.54 -Area of Debridement (cm) - Length 1.4 -Area of Debridement (cm) - Width 1.1 -Total Square (Area) (cm) 1.54 -Tunneling No -Undermining/Tunneling No -Circular Undermining No -Wound/Ulcer Outcome Not Healed -Ulcer Cleansing Rinsed/ Irrigated with Saline -Foul Odor after Cleansing No -Bioengineered Tissue No -Type of Bioengineered Tissue Epifix 18mm Disc -Expiration Date 06/13/28 -Product Lot Number [id number] -Percent Used 100 -Lot number of Saline Used [id number] -Bleeding Controlled with Pressure -Treatment Response Procedure Tolerated Well -Offloading Yes -Type of Offloading Other -Other Type of Offloading surgical shoe w / offload pad -Debridement - Subq, 1st 20sq cm No -Apply Skin Sub - 1st 25 sq cm - Feet 1 -Epifix 18mm Disc 3 Pain Scale: 0-10 Numeric Is Patient Pain Free? Yes - Nurse 3 - General Ulcer D/C NN Start: 11/14/23 10:45 Freq: Status: Active Protocol: Activity Type Activity Date Activity User E-sign Co-sign Detail Recorded Client Recorded Date Recorded By Document 11/30/23 12:24 RB [id number] 11/30/23 12:26 RB 11/30/23 12:24 Wound Care Center Nurse 3 1. R FOOT PLANTAR LATERAL -Primary Dressing Covered/Secured with Dry Gauze,Dry Gauze & Roll Gauze,Secured with Tape Treatment Response Procedure Tolerated Well Pain Scale: 0-10 Numeric Is Patient Pain Free? Yes WC - Visit Discharge Discharge Condition Stable Ambulatory Status Ambulatory Transportation Private Auto Medication Reconcilliation completed & No provided to patient/care provider Clinical Summary of Care Provided Yes Notes: Dr Trimble applied foam offloading pad to R plantar whic h was left in place before gauze dressings Assessment/Plan Assessment/Plan (1) Type 2 diabetes mellitus with foot ulcer: CODE(S): E11.621 - Type 2 diabetes mellitus with foot ulcer; L97.509 - Non-pressure chronic ulcer of other part of unspecified foot with unspecified severity QUALIFIERS: Diabetes mellitus termite control technician insulin use: with termite control technician use Qualified Code(s): E11.621 - Type 2 diabetes mellitus with foot ulcer; L97.509 - Non-pressure chronic ulcer of other part of unspecified foot with unspecified severity; Z79.4 - termite control technician (current) use of insulin (2) Osteomyelitis: CODE(S): M86.9 - Osteomyelitis, unspecified QUALIFIERS: Osteomyelitis type: unspecified type Osteomyelitis location: foot Laterality: right Qualified Code(s): M86.9 - Osteomyelitis, unspecified (3) Non-pressure chronic 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: CODE(S): L97.513 - Non-pressure chronic 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 (4) Type 2 diabetes mellitus: CODE(S): E11.9 - Type 2 diabetes mellitus without complications QUALIFIERS: Diabetes mellitus termite control technician insulin use: with penitentiary use Diabetes mellitus complication status: with hyperglycemia Qualified Code(s): E11.65 - Type 2 diabetes mellitus with hyperglycemia; Z79.4 - termite control technician (current) use of insulin (5) Peripheral arterial disease: CODE(S): I73.9 - Peripheral vascular disease, unspecified (6) Diabetic foot ulcer with osteomyelitis: CODE(S): E11.621 - Type 2 diabetes mellitus with foot ulcer; E11.69 - Type 2 diabetes mellitus with other specified complication; L97.509 - Non-pressure chronic ulcer of other part of unspecified foot with unspecified severity; M86.9 - Osteomyelitis, unspecified (7) Diabetes mellitus with diabetic polyneuropathy: CODE(S): E11.42 - Type 2 diabetes mellitus with diabetic polyneuropathy QUALIFIERS: Diabetes mellitus type: type 2 Diabetes mellitus termite control technician insulin use: with penitentiary use Qualified Code(s): E11.42 - Type 2 diabetes mellitus with diabetic polyneuropathy; Z79.4 - care home (current) use of insulin (8) Essential (primary) hypertension: CODE(S): I10 - Essential (primary) hypertension PLAN: Plan The patient tolerated hyperbaric oxygen therapy well which will be continued per her medical plan. This note was generated with [employer] software. It may contain incorrect words, spelling, and punctuation that were not noted in checking the note before signing.
[2023-12-04 09:14] LABS: Bedside Glucose 249 mg/dL (74-106)
[2023-12-04 11:15] VITALS: BP 129/79; BP 136/94; PULSE 80; PULSE 97; RESP 17; RESP 18; TEMP 35.8; TEMP 36.1
[2023-12-04 11:21] LABS: Bedside Glucose 137 mg/dL (74-106)
[2023-12-05 08:53] LABS: Bedside Glucose 356 mg/dL (74-106)
--- NOTE | 2023-12-05 09:59 | HBO.PN.PCM_ITS ---
History of Present Illness Date of Service: 12/05/23 Chief Complaint: Right foot ulceration History of Wound: Ms. Sawyer is a 63-year-old currently being seen at the wound center for right foot ulcer. History of diabetes mellitus type 2 and following recent MRI, diagnosed with osteomyelitis. Per documentation, Mayes stage III. Due to history of diabetic foot wound and osteomyelitis, she has been recommended for hyperbaric oxygen therapy. Comorbidities include coronary artery disease status post CABG. No known history of recurrent ear infections, COPD or tobacco use. She also denies any seizure episodes. She does however report variable blood glucose readings with frequent low blood glucose readings. Currently on insulin. Has continuous glucose monitoring. Recently had an EKG and a chest x-ray done with no acute concerns. She has no acute concerns at this time. Progress of Wound: Patient's blood sugar was 351. She states she took her short acting insulin this morning. Since her blood sugar is significantly over the limit for HBOT and she is not feeling well (very tired and cold), we will not dive her today. Objective Data Objective Data Vital Signs: Vital Signs Temp Pulse Resp BP 96.4 F L 97 18 136/94 H 12/04/23 11:15 12/04/23 11:15 12/04/23 11:15 12/04/23 11:15 Weight: 200 lb Body Mass Index (BMI) 34.3 Lab / Micro Data Labs: Laboratory Results - last 24 hr 12/04/23 10:59: POC Glucose 137 H 12/05/23 08:36: POC Glucose 356 H Exam Physical Exam Const alert, oriented x3 and no apparent distress General Appearance: cooperative HEENT normocephalic and TM's normal bilaterally Eyes General Eye: normal appearance of both eyes Resp normal respiratory effort, no use of accessory muscles and clear to auscultation bilaterally Effort and Inspection: able to speak in complete sentences Cardio regular rate and regular rhythm Psych affect normal Charges/Coding Visit Charges Office Visits / Consults: [id number] OV L2 Est 10min Assessment/Plan Assessment/Plan (1) Type 2 diabetes mellitus with foot ulcer: CODE(S): E11.621 - Type 2 diabetes mellitus with foot ulcer; L97.509 - Non-pressure chronic ulcer of other part of unspecified foot with unspecified severity QUALIFIERS: Diabetes mellitus diagrammer and seamer insulin use: with intermediate use Qualified Code(s): E11.621 - Type 2 diabetes mellitus with foot ulcer; L97.509 - Non-pressure chronic ulcer of other part of unspecified foot with unspecified severity; Z79.4 - shelter (current) use of insulin (2) Osteomyelitis: CODE(S): M86.9 - Osteomyelitis, unspecified QUALIFIERS: Osteomyelitis type: unspecified type Osteomyelitis location: foot Laterality: right Qualified Code(s): M86.9 - Osteomyelitis, unspecified (3) Non-pressure chronic 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: CODE(S): L97.513 - Non-pressure chronic 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 (4) Type 2 diabetes mellitus: CODE(S): E11.9 - Type 2 diabetes mellitus without complications QUALIFIERS: Diabetes mellitus intermediate insulin use: with intermediate use Diabetes mellitus complication status: with hyperglycemia Qualified Code(s): E11.65 - Type 2 diabetes mellitus with hyperglycemia; Z79.4 - shelter (current) use of insulin (5) Peripheral arterial disease: CODE(S): I73.9 - Peripheral vascular disease, unspecified (6) Diabetic foot ulcer with osteomyelitis: CODE(S): E11.621 - Type 2 diabetes mellitus with foot ulcer; E11.69 - Type 2 diabetes mellitus with other specified complication; L97.509 - Non-pressure chronic ulcer of other part of unspecified foot with unspecified severity; M86.9 - Osteomyelitis, unspecified (7) Diabetes mellitus with diabetic polyneuropathy: CODE(S): E11.42 - Type 2 diabetes mellitus with diabetic polyneuropathy QUALIFIERS: Diabetes mellitus type: type 2 Diabetes mellitus intermediate insulin use: with diagrammer and seamer use Qualified Code(s): E11.42 - Type 2 diabetes mellitus with diabetic polyneuropathy; Z79.4 - shelter (current) use of insulin (8) Essential (primary) hypertension: CODE(S): I10 - Essential (primary) hypertension PLAN: Plan She will not have HBOT today. She will come in tomorrow for her next treatment.
--- NOTE | 2023-12-05 10:09 | HBO.PN.PCM_ITS ---
History of Present Illness Date of Service: 12/04/23 Chief Complaint: Right foot ulceration History of Wound: Ms. Sawyer is a 63-year-old currently being seen at the wound center for right foot ulcer. History of diabetes mellitus type 2 and following recent MRI, diagnosed with osteomyelitis. Per documentation, Mayes stage III. Due to history of diabetic foot wound and osteomyelitis, she has been recommended for hyperbaric oxygen therapy. Comorbidities include coronary artery disease status post CABG. No known history of recurrent ear infections, COPD or tobacco use. She also denies any seizure episodes. She does however report variable blood glucose readings with frequent low blood glucose readings. Currently on insulin. Has continuous glucose monitoring. Recently had an EKG and a chest x-ray done with no acute concerns. She has no acute concerns at this time. Progress of Wound: Progress: This represents her hyperbaric oxygen therapy treatment. She has been approved for 30 sessions. Tolerance of hyperbaric oxygen therapy: Hyperbaric oxygen treatment was provided as per the facility's protocol at 2.0 PILO in 100% oxygen for 90 minutes without air breaks. The patient tolerated hyperbaric oxygen well, without complications or complaints. Upon emergence of the hyperbaric chamber, the patient's vital signs remained stable. Blood sugar levels as documented. Objective Data Objective Data Vital Signs: Vital Signs Temp Pulse Resp BP 96.4 F L 97 18 136/94 H 12/04/23 11:15 12/04/23 11:15 12/04/23 11:15 12/04/23 11:15 Weight: 200 lb Body Mass Index (BMI) 34.3 Lab / Micro Data Labs: Laboratory Results - last 24 hr 12/04/23 10:59: POC Glucose 137 H 12/05/23 08:36: POC Glucose 356 H Exam Physical Exam Const alert, oriented x3 and no apparent distress General Appearance: cooperative HEENT normocephalic and TM's normal bilaterally Eyes General Eye: normal appearance of both eyes Resp normal respiratory effort, no use of accessory muscles and clear to auscultation bilaterally Effort and Inspection: able to speak in complete sentences Cardio regular rate and regular rhythm Psych affect normal Charges/Coding Wound Center CF Procedures HBO Supervision: [id number] Hyperbaric Oxygen; supervision Assessment/Plan Assessment/Plan (1) Type 2 diabetes mellitus with foot ulcer: CODE(S): E11.621 - Type 2 diabetes mellitus with foot ulcer; L97.509 - Non-pressure chronic ulcer of other part of unspecified foot with unspecified severity QUALIFIERS: Diabetes mellitus usp insulin use: with usp use Qualified Code(s): E11.621 - Type 2 diabetes mellitus with foot ulcer; L97.509 - Non-pressure chronic ulcer of other part of unspecified foot with unspecified severity; Z79.4 - correction (current) use of insulin (2) Osteomyelitis: CODE(S): M86.9 - Osteomyelitis, unspecified QUALIFIERS: Laterality: right Osteomyelitis location: foot Osteomyelitis type: unspecified type Qualified Code(s): M86.9 - Osteomyelitis, unspecified (3) Non-pressure chronic 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: CODE(S): L97.513 - Non-pressure chronic 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 (4) Type 2 diabetes mellitus: CODE(S): E11.9 - Type 2 diabetes mellitus without complications QUALIFIERS: Diabetes mellitus complication status: with hyperglycemia Diabetes mellitus termite exterminator helper insulin use: with usp use Qualified Code(s): E11.65 - Type 2 diabetes mellitus with hyperglycemia; Z79.4 - termite control servicer (current) use of insulin (5) Peripheral arterial disease: CODE(S): I73.9 - Peripheral vascular disease, unspecified (6) Diabetic foot ulcer with osteomyelitis: CODE(S): E11.621 - Type 2 diabetes mellitus with foot ulcer; E11.69 - Type 2 diabetes mellitus with other specified complication; L97.509 - Non-pressure chronic ulcer of other part of unspecified foot with unspecified severity; M86.9 - Osteomyelitis, unspecified (7) Diabetes mellitus with diabetic polyneuropathy: CODE(S): E11.42 - Type 2 diabetes mellitus with diabetic polyneuropathy QUALIFIERS: Diabetes mellitus termite exterminator helper insulin use: with termite exterminator helper use Diabetes mellitus type: type 2 Qualified Code(s): E11.42 - Type 2 diabetes mellitus with diabetic polyneuropathy; Z79.4 - correction (current) use of insulin (8) Essential (primary) hypertension: CODE(S): I10 - Essential (primary) hypertension PLAN: Plan The patient tolerated hyperbaric oxygen therapy well which will be continued per her medical plan.
[2023-12-06 08:53] LABS: Bedside Glucose 202 mg/dL (74-106)
[2023-12-06 11:09] LABS: Bedside Glucose 197 mg/dL (74-106)
[2023-12-06 11:55] VITALS: BP 142/84; BP 158/78; PULSE 101; PULSE 84; RESP 18; TEMP 37.1; TEMP 37.9
--- NOTE | 2023-12-06 12:34 | HBO.PN.PCM_ITS ---
History of Present Illness Date of Service: 12/06/23 Chief Complaint: Right foot ulceration History of Wound: Ms. Sawyer is a 63-year-old currently being seen at the Wound Center for a right foot ulcer. She has a history of diabetes mellitus type 2 and, following recent MRI, diagnosed with osteomyelitis. Per documentation, Mayes stage III. Due to history of diabetic foot wound and osteomyelitis, she has been recommended for hyperbaric oxygen therapy. Comorbidities include coronary artery disease status post CABG. No known history of recurrent ear infections, COPD or tobacco use. She also denies any seizure episodes. She does however report variable blood glucose readings with frequent low blood glucose readings. She is currently on insulin. She has continuous glucose monitoring. She recently had an EKG and a chest x-ray done with no acute concerns. She has no acute concerns at this time. Progress of Wound: Progress: This represents her hyperbaric oxygen therapy treatment. She has been approved for 30 sessions. Tolerance of hyperbaric oxygen therapy: Hyperbaric oxygen treatment was provided as per the facility's protocol at 2.0 PILO in 100% oxygen for 90 minutes without air breaks. The patient tolerated hyperbaric oxygen well, without complications or complaints. Upon emergence of the hyperbaric chamber, the patient's vital signs remained stable. Blood sugar levels as documented - 202 pre-HBOT and 197 post-HBOT. Objective Data Objective Data Vital Signs: Vital Signs Temp Pulse Resp BP 98.8 F 84 18 142/84 H 12/06/23 11:55 12/06/23 11:55 12/06/23 11:55 12/06/23 11:55 Weight: 200 lb Body Mass Index (BMI) 34.3 Lab / Micro Data Attestation: I reviewed the patient's lab results. Labs: Laboratory Results - last 24 hr 12/06/23 08:35: POC Glucose 202 H 12/06/23 10:48: POC Glucose 197 H Exam Physical Exam Const alert, oriented x3 and no apparent distress General Appearance: cooperative and well developed HEENT normocephalic and TM's normal bilaterally Head and Scalp: atraumatic Eyes EOMs intact bilaterally General Eye: normal appearance of both eyes Neck no JVD Resp normal respiratory effort, no use of accessory muscles and clear to auscultation bilaterally Effort and Inspection: able to speak in complete sentences Psych affect normal Appearance: grossly normal Speech: normal speech Charges/Coding Wound Center CF Procedures HBO Supervision: [id number] Hyperbaric Oxygen; supervision Assessment/Plan Assessment/Plan (1) Osteomyelitis: CODE(S): M86.9 - Osteomyelitis, unspecified QUALIFIERS: Osteomyelitis type: unspecified type Osteomyelitis location: foot Laterality: right Qualified Code(s): M86.9 - Osteomyelitis, unspecified (2) Type 2 diabetes mellitus with foot ulcer: CODE(S): E11.621 - Type 2 diabetes mellitus with foot ulcer; L97.509 - Non-pressure chronic ulcer of other part of unspecified foot with unspecified severity QUALIFIERS: Diabetes mellitus half-way insulin use: with director long term care use Qualified Code(s): E11.621 - Type 2 diabetes mellitus with foot ulcer; L97.509 - Non-pressure chronic ulcer of other part of unspecified foot with unspecified severity; Z79.4 - ferry terminal supervisor (current) use of insulin (3) Non-pressure chronic 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: CODE(S): L97.513 - Non-pressure chronic 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 (4) Type 2 diabetes mellitus: CODE(S): E11.9 - Type 2 diabetes mellitus without complications QUALIFIERS: Diabetes mellitus director long term care insulin use: with director long term care use Diabetes mellitus complication status: with hyperglycemia Qualified Code(s): E11.65 - Type 2 diabetes mellitus with hyperglycemia; Z79.4 - snf (current) use of insulin (5) Peripheral arterial disease: CODE(S): I73.9 - Peripheral vascular disease, unspecified (6) Diabetic foot ulcer with osteomyelitis: CODE(S): E11.621 - Type 2 diabetes mellitus with foot ulcer; E11.69 - Type 2 diabetes mellitus with other specified complication; L97.509 - Non-pressure chronic ulcer of other part of unspecified foot with unspecified severity; M86.9 - Osteomyelitis, unspecified (7) Diabetes mellitus with diabetic polyneuropathy: CODE(S): E11.42 - Type 2 diabetes mellitus with diabetic polyneuropathy QUALIFIERS: Diabetes mellitus type: type 2 Diabetes mellitus director long term care insulin use: with half-way use Qualified Code(s): E11.42 - Type 2 diabetes mellitus with diabetic polyneuropathy; Z79.4 - ferry terminal supervisor (current) use of insulin (8) Essential (primary) hypertension: CODE(S): I10 - Essential (primary) hypertension PLAN: Plan The patient tolerated hyperbaric oxygen therapy well, which will be continued as per her medical plan.
--- NOTE | 2023-12-06 13:53 | PCM.WC.HP ---
History of Present Illness Date of Service: 12/06/23 Chief Complaint: Right foot ulceration History of Wound: Ms. Sawyer is a 63-year-old currently being seen at [facility] for a right foot ulcer. She has a history of diabetes mellitus type 2 and, following recent MRI, diagnosed with osteomyelitis. Per documentation, Mayes stage III. Due to history of diabetic foot wound and osteomyelitis, she has been recommended for hyperbaric oxygen therapy. Comorbidities include coronary artery disease status post CABG. No known history of recurrent ear infections, COPD or tobacco use. She also denies any seizure episodes. She does however report variable blood glucose readings with frequent low blood glucose readings. She is currently on insulin. She has continuous glucose monitoring. She recently had an EKG and a chest x-ray done with no acute concerns. She has no acute concerns at this time. Progress of Wound: Ms. Sawyer is a 63-year-old diabetic female seen at the wound care center today for a chief complaint of painful elongated toenails. Patient is a diabetic with controlled numbers. She admits to mild burning and tingling to her lower extremities. She is nonambulatory with assistance of wheelchair. She states relief with professional debridement of her toenails. She denies any lower extremity ulcerations. She is seen by nurse practitioner at the wound care center for sacral wound. She denies any concerns at area. She denies trauma. Denies constitutional symptoms. No other pedal complaints at this time. [facility] Medical History Essential (primary) hypertension Osteomyelitis Left rotator cuff tear Impingement of left shoulder Left shoulder pain PAF (paroxysmal atrial fibrillation) Diabetic retinopathy associated with type 2 diabetes mellitus Obesity Skin lesion of left lower extremity Dysarthria Dyspnea Chronic diastolic (congestive) heart failure MARLEN (obstructive sleep apnea) Slurred speech CVA (cerebral vascular accident) (12/14/18) Type 2 diabetes mellitus Incontinent of urine neck/back pain Limb weakness Anemia Shoulder pain Arthritis History of deep venous thrombosis (DVT) of distal vein of left lower extremity (04/13/13) 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) Hyperlipidemia History of non-ST elevation myocardial infarction (NSTEMI) (04/08/13) History of non-Hodgkin's lymphoma (2012) Polycystic ovaries IBS (irritable bowel syndrome) Home Medications ?Medication ?Instructions ?Recorded ?Last Taken ?Type cholecalciferol (vitamin D3) 50 2,000 units PO DAILY vitamin 05/20/19 04/05/23 10:00 History mcg (2,000 unit) capsule albuterol sulfate 90 mcg/actuation 2 puff inhalation Q6H PRN Sob &/Or 08/14/19 04/05/23 10:00 History aerosol inhaler (Proventil HFA) Wheezing metformin 1,000 mg tablet 1,000 mg PO BID type II diabetes 04/02/20 04/05/23 10:00 History pen needle, diabetic 31 gauge x #1,200 ea 04/02/20 Unknown History 06/28 losartan 50 mg tablet 50 mg PO DAILY bp #90 tabs 07/26/21 04/05/23 10:00 Rx flash glucose sensor (FreeStyle #1 ea 10/19/21 Unknown History Moses 14 Day Sensor kit) insulin degludec 100 unit/mL (3 50 unit subcut DAILY type II 10/19/21 04/05/23 10:00 History mL) subcutaneous pen (Tresiba diabetes FlexTouch U-100 insulin) insulin aspart U-100 100 unit/mL 30 unit subcut .COMPLEX type II 08/23/22 04/05/23 13:30 History (3 mL) subcutaneous pen diabetes insulin aspart U-100 100 unit/mL 40 unit subcut BREAKFAST DM II 08/23/22 04/05/23 10:00 History (3 mL) subcutaneous pen metoprolol succinate 50 mg 50 mg PO DAILY #90 tabs 08/23/22 Unknown Rx tablet,extended release 24 hr amlodipine 10 mg tablet 10 mg PO DAILY #30 tabs 04/07/23 Unknown Rx apixaban 5 mg tablet (Eliquis) See Rx Instructions .Route 04/10/23 Unknown Rx .COMPLEX #60 TABLETS furosemide 40 mg tablet See Rx Instructions .Route 04/10/23 Unknown Rx .COMPLEX #90 tabs doxycycline monohydrate 100 mg 100 mg PO BID #20 caps 09/25/23 Unknown Rx capsule atorvastatin 40 mg tablet 40 mg PO DAILY #90 TABLETS 10/06/23 Unknown Rx Allergy/AdvReac Type Severity Reaction Status Date / Time Penicillins Allergy Severe Rash Verified 09/25/23 09:52 grass pollen Allergy Intermediate Other Verified 09/25/23 09:52 tree and shrub pollen Allergy Intermediate Other Verified 09/25/23 09:52 lisinopril AdvReac Intermediate Other Verified 09/25/23 09:52 hydrocodone bitartrate (From AdvReac Mild Unknown Verified 09/25/23 09:52 Vicodin) losartan AdvReac Heart Burn Verified 09/25/23 09:52 Family History Father , 65 Diabetes Hypertension cabg Mother , Age 65 Hypertension Renal failure Sister Cancer Sister Diabetes Cardiomegaly Surgical History H/O coronary artery bypass surgery (04/10/13) History of left heart catheterization (07/26/18) Atherosclerotic heart disease of [place] coronary artery without angina pectoris Social History Smoking Status: Never smoker alcohol intake: never substance use type: does not use caffeine: Yes Type: coffee Number of servings: 2 Vital Signs Vital Signs Vital Signs: 12/06/23 11:55 Temperature [Post Treatment] 100.2 F H Temperature [Pre Treatment] 98.8 F Pulse Rate [Post Treatment] 101 H Pulse Rate [Pre Treatment] 84 Respiratory Rate [Post Treatment] 18 Respiratory Rate [Pre Treatment] 18 Blood Pressure [Post Treatment] 158/78 H Blood Pressure [Pre Treatment] 142/84 H Weight Weight: 90.718 kg Body Mass Index (BMI) 34.3 Physical Exam Narrative Vascular: DP and PT pulses are faintly palpable to the bilateral lower extremity. CFT is brisk. Nonpitting edema appreciated bilateral lower extremity. Skin temp great is warm to cool from proximal ankles to distal digit bilateral. No focal increase is appreciated. Neurological: Light touch intact. Patient response to painful stimuli. Dermatological: Toenails 1 through 5 are thickened elongated discolored with evidence of supple debris's. Skin is well-hydrated. Skin is also supple. Webspaces 1 through 4 are clean dry and intact. No open lesions or abrasions are appreciated. Musculoskeletal: Muscle strength is 1 out of 5 in all quadrants bilateral. Mild pain to palpation to toenails 1 through 5 bilateral. No pain with calf compression bilateral. Debridement Note Debridement Note Post-Debridement Measurements and Additional Note: Post-Debridement Measurements/Treatment - Nurse 1 - General Ulcer Assessment Start: 11/14/23 10:45 Freq: Status: Active Protocol: DEDRICK Activity Type Activity Date Activity User E-sign Co-sign Detail Recorded Client Recorded Date Recorded By Document 11/16/23 10:48 DL [id number] 11/16/23 10:54 DL Document 11/30/23 11:04 DL [id number] 11/30/23 11:11 DL 11/16/23 11/30/23 10:48 11:04 WC - Today's Visit Information Type of service Follow-up Visit Follow-up Visit (Physician/RETAIL CLIENT SOLUTIONS ANALYST (Physician/RETAIL CLIENT SOLUTIONS ANALYST ) ) Arrival Mode Ambulatory Ambulatory Transfer Assistance None None Patient Identification Verified (Name & Yes Yes ) Patient Requires Transmission-Based No No Precautions Height and Weight Body Mass Index (BMI) 34.3 34.3 BMI Classification Obese Obese Vital Signs Temperature (97.8 F-99.1 F) 97.6 F L 97.7 F L Temperature Source Temporal Temporal Pulse Rate (60-100) 82 89 Pulse Location Monitor Monitor Respiratory Rate (12-18) 18 14 Respiratory rate source Observation Observation Blood Pressure (90/60-120/80) 158/89 H 166/79 H Blood Pressure Mean 112 108 Source Monitor Monitor History Since Last Visit- (Skip if this is Patient's initial visit) Have you changed medications since your No No last visit? Any new allergies or adverse reactions No No Had a fall/change in ADL's that may No No increase risk of falls Signs or symptoms of abuse and/or No No neglect since last visit Have you been in the hospital since your No No last visit? Has dressing in place as prescribed Yes Yes Has compression in place as prescribed N/A No Has offloadiing in place as prescribed Yes Yes Experienced any changes in pain level or No No management Right Footwear Surgical Shoe with pressure relief insole Pain Scale: 0-10 Numeric Is Patient Pain Free? Yes Yes - Nurse 1 - General Ulcer Measurement Start: 11/14/23 10:45 Freq: Status: Active Protocol: Activity Type Activity Date Activity User E-sign Co-sign Detail Recorded Client Recorded Date Recorded By Document 11/16/23 10:48 DL [id number] 11/16/23 10:54 DL Document 11/30/23 11:04 DL [id number] 11/30/23 11:11 DL 11/16/23 11/30/23 10:48 11:04 Wound Center Nurse 1 1. R FOOT PLANTAR LATERAL -Current Size (cm) - Length 1.3 1.4 -Current Size (cm) - Width 1.3 1.2 -Current Size (cm) - Depth 0.3 0.2 -Total Square Cm 1.69 1.68 -Exudate Amt Medium Medium -Exudate Type Serosanguineous Serosanguineous -Wound Margin Thickened & Distinct, Rolled Under Outline Attached -Granulation Amt Medium (34-66%) Large (67-100%) -Granulation Quality [place],Red Red -Necrosis Amt Medium (34-66%) None Present (0 %) -Necrotic Tissue Type Adherent Slough -Structure Exposed N/A N/A -Texture (Pema-wound Skin Appearance) Callus,Scarring Callus,Scarring -Moisture (Pema-wound Skin Appearance) Dry/Scaly No Abnormality -Color (Pema-wound Skin Appearance) No Abnormality No Abnormality -Temperature (Pema-wound Skin No Abnormality No Abnormality Appearance) (Pt Warm) (Pt Warm) -Tenderness on Palpation (Pema-wound No No Skin Appearance) -Ulcer Cleansing Soap and Water Soap and Water -Foul Odor after Cleansing No No -Anesthetic Used 5% Lidocaine 5% Lidocaine Gel Gel WC - Nurse 2 - General Ulcer CM Notes Start: 11/14/23 10:45 Freq: Status: Active Protocol: Activity Type Activity Date Activity User E-sign Co-sign Detail Recorded Client Recorded Date Recorded By Document 11/16/23 11:07 [facility] [id number] 11/16/23 11:18 [facility] Document 11/30/23 11:25 [facility] [id number] 11/30/23 11:31 [facility] 11/16/23 11/30/23 11:07 11:25 Wound Center Nurse 2 1. R FOOT PLANTAR LATERAL -Time 11:07 11:25 -Correct Patient Yes Yes -Correct Side, Site, Position Yes Yes -Correct Procedure Yes Yes -Procedure Performed Yes Yes -Type of Procedure Debridement Debridement -Clinical Debridement Subcutaneous Subcutaneous -Tissue Removed Subcutaneous Subcutaneous -Post Debridement (cm) - Length 1.5 1.4 -Post Debridement (cm) - Width 1.3 1.1 -Post Debridement (cm) - Depth 0.1 0.1 -Total Square (Post) (cm) 1.95 1.54 -Area of Debridement (cm) - Length 1.5 1.4 -Area of Debridement (cm) - Width 1.3 1.1 -Total Square (Area) (cm) 1.95 1.54 -Tunneling No No -Undermining/Tunneling No No -Circular Undermining No No -Wound/Ulcer Outcome Not Healed Not Healed -Ulcer Cleansing Rinsed/ Rinsed/ Irrigated with Irrigated with Saline Saline -Foul Odor after Cleansing No No -Bioengineered Tissue Yes No -Type of Bioengineered Tissue Epifix 18mm Disc -Expiration Date 05/14/28 06/13/28 -Product Lot Number [id number] -Percent Used 100 100 -Lot number of Saline Used [id number] -Bleeding Controlled with Pressure Pressure -Treatment Response Procedure Procedure Tolerated Well Tolerated Well -Offloading Yes -Type of Offloading Surgical Shoe Other -Other Type of Offloading surgical shoe w / offload pad -Debridement - Subq, 1st 20sq cm No No -Apply Skin Sub - 1st 25 sq cm - Feet 1 1 -Epifix 18mm Disc 3 3 Pain Scale: 0-10 Numeric Is Patient Pain Free? Yes Yes - Nurse 3 - General Ulcer D/C NN Start: 11/14/23 10:45 Freq: Status: Active Protocol: Activity Type Activity Date Activity User E-sign Co-sign Detail Recorded Client Recorded Date Recorded By Document 11/16/23 11:28 DL [id number] 11/16/23 11:29 DL Document 11/27/23 10:49 JF [id number] 11/27/23 10:53 Document 11/30/23 12:24 RB [id number] 11/30/23 12:26 RB 11/16/23 11/27/23 11/30/23 11:28 10:49 12:24 Wound Care Center Nurse 3 1. R FOOT PLANTAR LATERAL -Foul Odor after Cleansing No -Other Dressing epimesh -Primary Dressing Covered/Secured with Dry Gauze & Dry Gauze,Dry Roll Gauze, Gauze & Roll Secured with Gauze,Secured Tape with Tape -Other Covering ABD Treatment Response Procedure Procedure Tolerated Well Tolerated Well Pain Scale: 0-10 Numeric Is Patient Pain Free? Yes Yes Yes - Visit Discharge Discharge Condition Stable Stable Stable Ambulatory Status Ambulatory Ambulatory Ambulatory Transportation Private Auto Private Auto Private Auto Accompanied by scheduled tranport provided Medication Reconcilliation completed & No No provided to patient/care provider Clinical Summary of Care Provided No Yes Notes: Dr Trimble applied foam offloading pad to R plantar whic h was left in place before gauze dressings Lab / Micro Data Labs: Laboratory Results - last 24 hr 12/06/23 08:35: POC Glucose 202 H 12/06/23 10:48: POC Glucose 197 H Assessment/Plan Assessment/Plan (1) Pain in right toe(s): CODE(S): M79.674 - Pain in right toe(s) PLAN: Patient was examined and evaluated. All findings were discussed with the patient. All questions were answered to the patient's satisfaction. Patient's toenails 1 through 5 bilateral debrided down to and including normal limits with a sterile double-action nail nipper without incident. Patient is very relieved with professional debridement. Educated the patient to check her feet twice per day and apply lotion. Educated patient on strict blood sugar control less than 150 mg/dL. Patient to follow-up in private office Dr. Estrada in 9 weeks for continued palliative care.. (2) Pain in left toe(s): CODE(S): M79.675 - Pain in left toe(s) (3) Other specified peripheral vascular diseases: CODE(S): I73.89 - Other specified peripheral vascular diseases (4) Chronic painful diabetic polyneuropathy: CODE(S): E11.42 - Type 2 diabetes mellitus with diabetic polyneuropathy
--- NOTE | 2023-12-07 09:00 | HBO.PN.PCM_ITS ---
History of Present Illness Date of Service: 12/07/23 Chief Complaint: Right foot ulceration History of Wound: History of Wound: Ms. Sawyer is a 63-year-old currently being seen at the [facility] Center for a right foot ulcer. She has a history of diabetes mellitus type 2 and, following recent MRI, diagnosed with osteomyelitis. Per documentation, Mayes stage III. Due to history of diabetic foot wound and osteomyelitis, she has been recommended for hyperbaric oxygen therapy. Comorbidities include coronary artery disease status post CABG. No known history of recurrent ear infections, COPD or tobacco use. She also denies any seizure episodes. She does however report variable blood glucose readings with frequent low blood glucose readings. She is currently on insulin. She has continuous glucose monitoring. She recently had an EKG and a chest x-ray done with no acute concerns. She has no acute concerns at this time. Progress of Wound: This represents her th hyperbaric oxygen therapy treatment. She has been approved for 30 sessions. Tolerance of hyperbaric oxygen therapy: Hyperbaric oxygen treatment was provided as per the facility's protocol at 2.0 PILO in 100% oxygen for 90 minutes without air breaks. The patient tolerated hyperbaric oxygen well, without complications or complaints. Upon emergence of the hyperbaric chamber, the patient's vital signs remained stable. Blood sugar levels as documented - 202 pre-HBOT and 197 post-HBOT. Objective Data Objective Data Vital Signs: Vital Signs Temp Pulse Resp BP 98.8 F 84 18 142/84 H 12/06/23 11:55 12/06/23 11:55 12/06/23 11:55 12/06/23 11:55 Weight: 200 lb Body Mass Index (BMI) 34.3 Lab / Micro Data Labs: Laboratory Results - last 24 hr 12/06/23 10:48: POC Glucose 197 H Exam Physical Exam Const alert, oriented x3 and no apparent distress General Appearance: cooperative HEENT normocephalic and TM's normal bilaterally Eyes General Eye: normal appearance of both eyes Resp normal respiratory effort, no use of accessory muscles and clear to auscultation bilaterally Effort and Inspection: able to speak in complete sentences Cardio regular rate and regular rhythm Psych affect normal Charges/Coding Wound Center CF Procedures HBO Supervision: [id number] Hyperbaric Oxygen; supervision Assessment/Plan Assessment/Plan (1) Type 2 diabetes mellitus with foot ulcer: CODE(S): E11.621 - Type 2 diabetes mellitus with foot ulcer; L97.509 - Non-pressure chronic ulcer of other part of unspecified foot with unspecified severity QUALIFIERS: 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 mellitus [employer]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 [employer] 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 use: with long-term use Qualified Code(s): E11.621 - Type 2 diabetes mellitus with foot ulcer; L97.509 - Non-pressure chronic ulcer of other part of unspecified foot with unspecified severity; Z79.4 - snf (current) use of insulin (2) Osteomyelitis: CODE(S): M86.9 - Osteomyelitis, unspecified QUALIFIERS: Osteomyelitis type: unspecified type Osteomyelitis location: foot Laterality: right Qualified Code(s): M86.9 - Osteomyelitis, unspecified (3) Non-pressure chronic 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: CODE(S): L97.513 - Non-pressure chronic 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 (4) Type 2 diabetes mellitus: CODE(S): E11.9 - Type 2 diabetes mellitus without complications QUALIFIERS: 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 Diabetes mellitus complication status: with hyperglycemia Qualified Code(s): E11.65 - Type 2 diabetes mellitus with hyperglycemia; 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 of 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 (5) Peripheral arterial disease: CODE(S): I73.9 - Peripheral vascular disease, unspecified (6) Diabetic foot ulcer with osteomyelitis: CODE(S): E11.621 - Type 2 diabetes mellitus with foot ulcer; E11.69 - Type 2 diabetes mellitus with other specified complication; L97.509 - Non-pressure chronic ulcer of other part of unspecified foot with unspecified severity; M86.9 - Osteomyelitis, unspecified (7) Diabetes mellitus with diabetic polyneuropathy: CODE(S): E11.42 - Type 2 diabetes mellitus with diabetic polyneuropathy QUALIFIERS: Diabetes mellitus type: type 2 Diabetes mellitus long-term insulin use: with long-term use Qualified Code(s): E11.42 - Type 2 diabetes mellitus with diabetic polyneuropathy; Z79.4 - snf (current) use of insulin (8) Essential (primary) hypertension: CODE(S): I10 - Essential (primary) hypertension PLAN: Plan The patient tolerated hyperbaric oxygen therapy well which will be continued per her medical plan.
[2023-12-07 09:17] LABS: Bedside Glucose 190 mg/dL (74-106)
[2023-12-07 11:05] LABS: Bedside Glucose 210 mg/dL (74-106)
[2023-12-07 11:17] VITALS: BP 147/79; PULSE 79; RESP 18; TEMP 37; BMI 34.3
[2023-12-07 11:35] VITALS: BP 147/71; BP 147/79; PULSE 79; PULSE 91; RESP 17; RESP 18; TEMP 36.8; TEMP 37
--- NOTE | 2023-12-07 11:48 | PCM.WC.PN ---
History of Present Illness Date of Service: 12/07/23 Chief Complaint: Right foot ulceration History of Wound: Ms. Sawyer is a 63-year-old currently being seen at the [facility] for a right foot ulcer. She has a history of diabetes mellitus type 2 and, following recent MRI, diagnosed with osteomyelitis. Per documentation, Mayes stage III. Due to history of diabetic foot wound and osteomyelitis, she has been recommended for hyperbaric oxygen therapy. Comorbidities include coronary artery disease status post CABG. No known history of recurrent ear infections, COPD or tobacco use. She also denies any seizure episodes. She does however report variable blood glucose readings with frequent low blood glucose readings. She is currently on insulin. She has continuous glucose monitoring. She recently had an EKG and a chest x-ray done with no acute concerns. She has no acute concerns at this time. Progress of Wound: Ms. Sawyer is a 63-year-old diabetic female seen at the wound care center today for a chief complaint of painful elongated toenails. Patient is a diabetic with controlled numbers. She admits to mild burning and tingling to her lower extremities. She is nonambulatory with assistance of wheelchair. She states relief with professional debridement of her toenails. She denies any lower extremity ulcerations. She is seen by nurse practitioner at the wound care center for sacral wound. She denies any concerns at area. She denies trauma. Denies constitutional symptoms. No other pedal complaints at this time. Subjective Subjective This is a 63-year-old female who follows up to the wound center for continued care of a plantar lateral fifth metatarsal head ulceration of the right foot. She has left grafting product in place to the right foot ulcerative site and has changed outer dressings as needed. Continues hyperbaric dives and states these are going well. Continues offloading and surgical shoe with fifth ray cut out. Reports increased pain in the 5th digit with increased redness over last 24 hours since hyperbaric dive. Denies constitutional symptoms. Denies further complaints. Objective Data Objective Data Vital Signs: Vital Signs Temp Pulse Resp BP 98.2 F 91 17 147/71 H 12/07/23 11:35 12/07/23 11:35 12/07/23 11:35 12/07/23 11:35 Weight: 90.718 kg Body Mass Index (BMI) 34.3 Lab / Micro Data Labs: Laboratory Results - last 24 hr 10/24/24 08:13: POC Glucose 190 H 12/07/23 10:42: POC Glucose 210 H Physical Exam Const alert, oriented x3 and no apparent distress General Appearance: cooperative HEENT normocephalic Eyes General Eye: normal appearance of both eyes Neck General: normal visual inspection Lymph Lymphatic: no lymphadenopathy noted and no lymphedema noted Resp normal respiratory effort Cardio regular rate and regular rhythm Extremity normal capillary refill, no calf tenderness and no pedal edema Extremity Narrative: Right lower extremity: Vascular: DP and PT pulses nonpalpable. Doppler demonstrates monophasic DP and PT. CFT is less than 5 seconds to the digits. Hair growth is absent to digits. Normal temperature gradient is noted. No increased temperature about the ulcerative site. Neurologic: Protective sensation is absent consistent with diabetic peripheral polyneuropathy. Musculoskeletal: Muscle strength 5 of 5 age-appropriate. 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 Decreased range of motion of the first metatarsophalangeal joint without pain or crepitus. Decreased range of motion of the ankle joint in dorsiflexion with the knee extended without pain or crepitus. Dermatologic: There is a full-thickness ulceration noted at the plantar lateral aspect of the fifth metatarsal head tailor's bunion deformity with surrounding hyperkeratosis. Granular ulcerative bed. Predebridement ulceration measures 1.3 cm x 1.0 cm. Ulceration does not probe to bone. There is increased erythema about the 5th digit and dorsal foot with lymphangitic streak dorsal foot. No palpable fluctuance/bogginess. No visible abscess formation. No purulent drainage. Skin no rashes or lesions noted, skin turgor normal and no jaundice Neuro moves all extremities Debridement Note Debridement Note No debridement was completed: No debridement was completed today Post-Debridement Measurements and Additional Note: Post-Debridement Measurements/Treatment WC - Nurse 1 - General Ulcer Assessment Start: 11/14/23 10:45 Freq: Status: Active Protocol: DEDRICK Activity Type Activity Date Activity User E-sign Co-sign Detail Recorded Client Recorded Date Recorded By Document 11/16/23 10:48 DL [id number] 11/16/23 10:54 DL Document 11/30/23 11:04 DL [id number] 11/30/23 11:11 DL Document 12/07/23 11:17 RB [id number] 12/07/23 11:21 RB 11/16/23 11/30/23 12/07/23 10:48 11:04 11:17 WC - Today's Visit Information Type of service Follow-up Visit Follow-up Visit Follow-up Visit (Physician/GRINDER CHIPPER (Physician/GRINDER CHIPPER (Physician/GRINDER CHIPPER ) ) ) Arrival Mode Ambulatory Ambulatory Ambulatory Transfer Assistance None None None Patient Identification Verified (Name & Yes Yes Yes ) Patient Requires Transmission-Based No No No Precautions Finger Stick Blood Sugar(mg/dl) (if 210 indicated): Blood Sugar Stated by Patient Height and Weight Body Mass Index (BMI) 34.3 34.3 34.3 BMI Classification Obese Obese Obese Vital Signs Temperature (97.8 F-99.1 F) 97.6 F L 97.7 F L 98.6 F Temperature Source Temporal Temporal Temporal Pulse Rate (60-100) 82 89 79 Pulse Location Monitor Monitor Monitor Respiratory Rate (12-18) 18 14 18 Respiratory rate source Observation Observation Observation Blood Pressure (90/60-120/80) 158/89 H 166/79 H 147/79 H Blood Pressure Mean (mm Hg) 112 108 101 Source Monitor Monitor Monitor Position Sitting Blood Pressure Location Left Arm History Since Last Visit- (Skip if this is Patient's initial visit) Have you changed medications since your No No No last visit? Any new allergies or adverse reactions No No No Had a fall/change in ADL's that may No No No increase risk of falls Signs or symptoms of abuse and/or No No No neglect since last visit Have you been in the hospital since your No No No last visit? Has dressing in place as prescribed Yes Yes Yes Has compression in place as prescribed N/A No No Has offloadiing in place as prescribed Yes Yes Yes Experienced any changes in pain level or No No No management Left Footwear Regular Shoe Right Footwear Surgical Shoe Surgical Shoe with pressure with pressure relief insole relief insole Pain Scale: 0-10 Numeric Is Patient Pain Free? Yes Yes No R FOOT -Description Throbbing -Intensity 7 -Duration (hours) Acute -Pain Behavior Withdrawal from Touch -Pain Aggravating Factors Exercise/ Activity -Alleviating Factors/Interventions Medication -Effectiveness of Alleviating Factor/ Minimally Intervention effective WC - Nurse 1 - General Ulcer Measurement Start: 11/14/23 10:45 Freq: Status: Active Protocol: Activity Type Activity Date Activity User E-sign Co-sign Detail Recorded Client Recorded Date Recorded By Document 11/16/23 10:48 DL [id number] 11/16/23 10:54 DL Document 11/30/23 11:04 DL [id number] 11/30/23 11:11 DL Document 12/07/23 11:17 RB [id number] 12/07/23 11:21 RB Edit Result 12/07/23 11:17 RB (1) [id number] 12/07/23 11:22 RB (1) 1. R FOOT PLANTAR LATERAL - Color (Pema-wound Skin Appearance) Assessed => Assessed,Erythema - Wound Comment(s) => pt c/o increased throbbing pain in right foot 5th toe at level 7. 11/16/23 11/30/23 12/07/23 10:48 11:04 11:17 Wound Center Nurse 1 1. R FOOT PLANTAR LATERAL -Combined with other wound No -Current Size (cm) - Length 1.3 1.4 1.4 -Current Size (cm) - Width 1.3 1.2 1.2 -Current Size (cm) - Depth 0.3 0.2 0.2 -Total Square Cm 1.69 1.68 1.68 -Photo Taken Yes -Tunneling No -Undermining/Tunneling No -Circular Undermining No -Exudate Amt Medium Medium Medium -Exudate Type Serosanguineous Serosanguineous Serosanguineous -Wound Margin Thickened & Distinct, Thickened Rolled Under Outline Attached -Granulation Amt Medium (34-66%) Large (67-100%) Medium (34-66%) -Granulation Quality Wheeler,Red Red Wheeler -Slough/Fibrin Yes -Necrosis Amt Medium (34-66%) None Present (0 Medium (34-66%) %) -Necrotic Tissue Type Adherent Slough Adherent Slough -Structure Exposed N/A N/A N/A -Texture (Pema-wound Skin Appearance) Callus,Scarring Callus,Scarring Assessed,Callus -Moisture (Pema-wound Skin Appearance) Dry/Scaly No Abnormality Assessed -Color (Pema-wound Skin Appearance) No Abnormality No Abnormality Assessed, Erythema -Temperature (Pema-wound Skin No Abnormality No Abnormality No Abnormality Appearance) (Pt Warm) (Pt Warm) (Pt Warm) -Tenderness on Palpation (Pema-wound No No No Skin Appearance) -Ulcer Cleansing Soap and Water Soap and Water Wound Cleanser -Foul Odor after Cleansing No No No -Anesthetic Used 5% Lidocaine 5% Lidocaine 4% Lidocaine Gel Gel Solution -Wound Comment(s) pt c/o increased throbbing pain in right foot 5th toe at level 7. WC - Nurse 2 - General Ulcer CM Notes Start: 11/14/23 10:45 Freq: Status: Active Protocol: Activity Type Activity Date Activity User E-sign Co-sign Detail Recorded Client Recorded Date Recorded By Document 11/16/23 11:07 [facility] [id number] 11/16/23 11:18 Recombine Document 11/30/23 11:25 Recombine [id number] 11/30/23 11:31 BM Document 12/07/23 11:33 Recombine [id number] 12/07/23 11:42 BMF 11/16/23 11/30/23 12/07/23 11:07 11:25 11:33 Wound Center Nurse 2 1. R FOOT PLANTAR LATERAL -Time 11:07 11:25 11:34 -Correct Patient Yes Yes -Correct Side, Site, Position Yes Yes -Correct Procedure Yes Yes -Procedure Performed Yes Yes -Type of Procedure Debridement Debridement -Clinical Debridement Subcutaneous Subcutaneous -Tissue Removed Subcutaneous Subcutaneous -Post Debridement (cm) - Length 1.5 1.4 1.3 -Post Debridement (cm) - Width 1.3 1.1 1 -Post Debridement (cm) - Depth 0.1 0.1 0.1 -Total Square (Post) (cm) 1.95 1.54 1.3 -Area of Debridement (cm) - Length 1.5 1.4 1.3 -Area of Debridement (cm) - Width 1.3 1.1 1 -Total Square (Area) (cm) 1.95 1.54 1.3 -Tunneling No No No -Undermining/Tunneling No No No -Circular Undermining No No No -Wound/Ulcer Outcome Not Healed Not Healed Not Healed -Ulcer Cleansing Rinsed/ Rinsed/ Irrigated with Irrigated with Saline Saline -Foul Odor after Cleansing No No -Bioengineered Tissue Yes No -Type of Bioengineered Tissue Epifix 18mm Disc -Expiration Date 05/14/28 06/13/28 -Product Lot Number [id number] -Percent Used 100 100 -Lot number of Saline Used [id number] -Bleeding Controlled with Pressure Pressure NA -Treatment Response Procedure Procedure Procedure Tolerated Well Tolerated Well Tolerated Well -Offloading Yes Yes -Type of Offloading Surgical Shoe Other Surgical Shoe -Other Type of Offloading surgical shoe w / offload pad -Debridement - Subq, 1st 20sq cm No No -Apply Skin Sub - 1st 25 sq cm - Feet 1 1 -Epifix 18mm Disc 3 3 Pain Scale: 0-10 Numeric Is Patient Pain Free? Yes Yes Yes - Nurse 3 - General Ulcer D/C NN Start: 11/14/23 10:45 Freq: Status: Active Protocol: Activity Type Activity Date Activity User E-sign Co-sign Detail Recorded Client Recorded Date Recorded By Document 11/16/23 11:28 DL [id number] 11/16/23 11:29 DL Document 11/27/23 10:49 JF 00 11/27/23 10:53 JF Document 11/30/23 12:24 RB [id number] 11/30/23 12:26 RB 11/16/23 11/27/23 11/30/23 11:28 10:49 12:24 Wound Care Center Nurse 3 1. R FOOT PLANTAR LATERAL -Foul Odor after Cleansing No -Other Dressing epimesh -Primary Dressing Covered/Secured with Dry Gauze & Dry Gauze,Dry Roll Gauze, Gauze & Roll Secured with Gauze,Secured Tape with Tape -Other Covering ABD Treatment Response Procedure Procedure Tolerated Well Tolerated Well Pain Scale: 0-10 Numeric Is Patient Pain Free? Yes Yes Yes - Visit Discharge Discharge Condition Stable Stable Stable Ambulatory Status Ambulatory Ambulatory Ambulatory Transportation Private Auto Private Auto Private Auto Accompanied by scheduled tranport provided Medication Reconcilliation completed & No No provided to patient/care provider Clinical Summary of Care Provided No Yes Notes: Dr Trimble applied foam offloading pad to R plantar whic h was left in place before gauze dressings Assessment/Plan Assessment/Plan (1) Cellulitis of foot, right: CODE(S): L03.115 - Cellulitis of right lower limb (2) Non-pressure chronic 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: CODE(S): L97.513 - Non-pressure chronic 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 (3) Osteomyelitis: CODE(S): M86.9 - Osteomyelitis, unspecified QUALIFIERS: Laterality: right Osteomyelitis location: foot Osteomyelitis type: unspecified type Qualified Code(s): M86.9 - Osteomyelitis, unspecified (4) Diabetes mellitus with diabetic polyneuropathy: CODE(S): E11.42 - Type 2 diabetes mellitus with diabetic polyneuropathy QUALIFIERS: Diabetes mellitus [facility] insulin use: with [facility] use Diabetes mellitus type: type 2 Qualified Code(s): E11.42 - Type 2 diabetes mellitus with diabetic polyneuropathy; Z79.4 - residential (current) use of insulin (5) Type 2 diabetes mellitus with foot ulcer: CODE(S): E11.621 - Type 2 diabetes mellitus with foot ulcer; L97.509 - Non-pressure chronic ulcer of other part of unspecified foot with unspecified severity QUALIFIERS: Diabetes mellitus [facility] insulin use: with [facility] use Qualified Code(s): E11.621 - Type 2 diabetes mellitus with foot ulcer; L97.509 - Non-pressure chronic ulcer of other part of unspecified foot with unspecified severity; 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 There is increased erythema about the 5th digit and dorsal foot with lymphangitic streak dorsal foot which is acutely presenting over last 24 hours. Ulceration was not debrided as noted in the clinical panel above. Postdebridement measurement 1.4 cm x 1.1 cm x 0.2 cm. Ulceration does not probe to bone and is granulating in well, but now has increased erytheam and lymphangitic streaking dorsal foot. EpiFix #2 applied to the wound base on 11/30/23. Had continued dives without issue until today. Discussed worsening ulceration with signs of infection. Recommended going to ED for IV antibiotics and further evaluation. Ulceration demonstrates slight decrease in size versus previous visit. Was healing well with Hyperbaric dives. Approved for advanced wound care product, EpiFix. Will continue application. Discussed her MRI from 10/05/2023 demonstrates focal marrow edema of the lateral aspect of the fifth metatarsal head, series 7 image 13 with overlying soft tissue swelling. Radiology states findings consistent with osteomyelitis. I do feel upon review that there is periostitis secondary to infection at the plantar lateral aspect but complete destruction is not visualized. Overall wound is improving with Dakin's and oral antibiotics. I have discussed options with her of both surgical and conservative. Discussed surgical options include amputation of the fifth metatarsal head and debridement of necrotic tissue. Discussed conservatively to continue the Dakin's with oral antibiotics and clearance for HBO therapy. Patient would like to try to continue the oral antibiotics with the HBO therapy as she does feel she can heal. I reviewed her labs for HBO clearance performed 10/13/23. WBC 8.9; Hgb 12.6; Hct 39.3; AST 16; ALT 15; CRP 9.56; albumin 3.0; prealbumin 18; sodium 139; potassium 3.8; chloride 101; CO2 30.0; BUN 19;Cr 0.96; glucose 145; HgbA1c 8.2%. She did see Dr. Garsia for clearance and has been cleared for HBO dives. She has started dives and will continue. She is tolerating dives well. Venous studies 10/13/23: Negative for acute DVT. Deep veins bilateral lower extremities patent and compressible segmentally. Positive reflux left saphenofemoral junction. LEAS: Right GARCÍA 0.87, moderate arterial insufficiency; Doppler and PVR waveforms demonstrate infrapopliteal disease. Left GARCÍA 0.41, severe arterial insufficiency. Doppler/PVR waveforms reveal distal SFA/popliteal and infrapopliteal disease. Patient will continue follow-up with Dr. Figueroa, vascular surgery. Discussed continuing to lower blood sugar as sugar today was 153 mg/dL. Last A1c was 9.0%, recently down to 8.2% on 10/13/23. She was encouraged for continued reduction. Discussed proper diabetic diet to aid in reduction of glucose and striving for A1c of under 7% to optimize healing. Patient is understanding of this. Discussed adequate protein to aid in wound healing. Tyson supplementation was also recommended. Discussed signs and symptoms of infection. Discussed that if she notices increasing redness about the ulcerative site that moves to on top of the foot and up the leg, any purulent drainage from the ulcerative site, increasing foul odor, or if she experiences fever greater than 101 degree accompanied by nausea, vomiting, chills that these are signs of a progressing infection and she should report to the ED for IV antibiotics and further evaluation. She is understanding of this today. The following work up and care recommendations were made: Dressing: EpiFix, Adaptic touch, Steri-Strips, dry sterile dressing. Change outer dressing as needed. Wash: Do not get wet Tissue growth optimization: EpiFix Offload: Surgical shoe with fifth ray cut out Vascular: Nonpalpable DP and PT pulses. LEAS were ordered 10/05/2023, awaiting results. Edema: No pedal edema noted Infection: Possible osteomyelitis fifth metatarsal head, MRI demonstrates acute osteo of the periphery of the periosteal tissue of the fifth metatarsal head. Rx doxycycline 100 mg twice daily x 14 days, levofloxacin 750 mg daily x 14 days. Stop date 10/26/2023 Pain: No pain secondary to diabetic peripheral polyneuropathy Host factors: DM type II with peripheral polyneuropathy, right-sided weakness post CVA in 2019, PVD, tailor's bunion deformity. Due to worsening infection of the Right foot she was sent to ED for IV antibiotics and further evaluation. I will continue to follow patient while in house. Will plan for MRI of the Right foot for further evaluation and if Osteomyelitis is confirmed will plan for surgical evaluation.
--- NOTE | 2023-12-08 09:58 | WC ---
PHOTO 12/07/23
== END 2023-12-14 23:59 | disposition home or self-care (01) ==
LOC: WC 08:30
PROVIDERS: PCP Family Medicine; Referring Provider Physician Assistant; Visit Provider Student in an Organized Health Care Education/Training Program
DX: E11.621 Type 2 diabetes mellitus with foot ulcer (principal); L97.413 Non-pressure chronic ulcer of right heel and midfoot with necrosis of muscle; M86.8X7 Other osteomyelitis, ankle and foot; I11.0 Hypertensive heart disease with heart failure; I50.32 Chronic diastolic (congestive) heart failure; E11.65 Type 2 diabetes mellitus with hyperglycemia; E11.42 Type 2 diabetes mellitus with diabetic polyneuropathy; Z79.4 Long term (current) use of insulin; E11.51 Type 2 diabetes mellitus with diabetic peripheral angiopathy without gangrene; E11.69 Type 2 diabetes mellitus with other specified complication; M79.674 Pain in right toe(s); I25.10 Atherosclerotic heart disease of native coronary artery without angina pectoris; E78.5 Hyperlipidemia, unspecified; M20.11 Hallux valgus (acquired), right foot; M21.621 Bunionette of right foot; Z79.01 Long term (current) use of anticoagulants; Z79.84 Long term (current) use of oral hypoglycemic drugs; Z79.899 Other long term (current) drug therapy; Z95.1 Presence of aortocoronary bypass graft
CPT/HCPCS: 15275; 82962; 99183; 99212; Q4186; G0277; G0463

== ENCOUNTER 2023-12-07 12:26 | Inpatient (IN) | payer MEDICARE, MEDICAID, SELFPAY ==
[2023-12-07] VITALS (8 sets, daily range): BP systolic 141–177; BP diastolic 74–90; PULSE 77–88; RESP 18; TEMP 36.1–37.2; O2SAT 97–100; BMI 34.7; BMI 34.5
--- NOTE | 2023-12-07 14:23 | EDS_ITS ---
HPI History of Present Illness Chief Complaint: Lower Extremity Injury Informant: patient and PCP (Podiatry) Narrative Narrative: 63-year-old female poorly controlled diabetic with a history of a wound on her right foot, has been going to wound care for it, last time she saw all of this area was a week ago when she was at wound care, she states that her skin are wrapped around it and she has had some soreness for the last 2 or 3 days, today in wound care they unwrapped it and saw that it appears to be infected with lymphangitic streaking going up her leg and it is painful. She states she had a fever when she was in hyperbaric oxygen chamber yesterday, but she does not today and she does not have any systemic symptoms at this time. [facility] Medical History Essential (primary) hypertension Osteomyelitis Left rotator cuff tear Impingement of left shoulder Left shoulder pain PAF (paroxysmal atrial fibrillation) Diabetic retinopathy associated with type 2 diabetes mellitus Obesity Skin lesion of left lower extremity Dysarthria Dyspnea Chronic diastolic (congestive) heart failure MARLEN (obstructive sleep apnea) Slurred speech CVA (cerebral vascular accident) (12/14/18) Type 2 diabetes mellitus Incontinent of urine neck/back pain Limb weakness Anemia Shoulder pain Arthritis History of deep venous thrombosis (DVT) of distal vein of left lower extremity (04/13/13) 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) Hyperlipidemia History of non-ST elevation myocardial infarction (NSTEMI) (04/08/13) History of non-Hodgkin's lymphoma (2012) Polycystic ovaries IBS (irritable bowel syndrome) Home Medications ?Medication ?Instructions ?Recorded ?Last Taken ?Type cholecalciferol (vitamin D3) 50 2,000 units PO DAILY vitamin 05/20/19 04/05/23 10:00 History mcg (2,000 unit) capsule albuterol sulfate 90 mcg/actuation 2 puff inhalation Q6H PRN Sob &/Or 08/14/19 04/05/23 10:00 History aerosol inhaler (Proventil HFA) Wheezing metformin 1,000 mg tablet 1,000 mg PO BID type II diabetes 04/02/20 04/05/23 10:00 History pen needle, diabetic 31 gauge x #1,200 ea 04/02/20 Unknown History 06/28 losartan 50 mg tablet 50 mg PO DAILY bp #90 tabs 07/26/21 04/05/23 10:00 Rx flash glucose sensor (FreeStyle #1 ea 10/19/21 Unknown History Moses 14 Day Sensor kit) insulin degludec 100 unit/mL (3 50 unit subcut DAILY type II 10/19/21 04/05/23 10:00 History mL) subcutaneous pen (Tresiba diabetes FlexTouch U-100 insulin) insulin aspart U-100 100 unit/mL 30 unit subcut .COMPLEX type II 08/23/22 04/05/23 13:30 History (3 mL) subcutaneous pen diabetes insulin aspart U-100 100 unit/mL 40 unit subcut BREAKFAST DM II 08/23/22 04/05/23 10:00 History (3 mL) subcutaneous pen metoprolol succinate 50 mg 50 mg PO DAILY #90 tabs 08/23/22 Unknown Rx tablet,extended release 24 hr amlodipine 10 mg tablet 10 mg PO DAILY #30 tabs 04/07/23 Unknown Rx apixaban 5 mg tablet (Eliquis) See Rx Instructions .Route 04/10/23 Unknown Rx .COMPLEX #60 TABLETS furosemide 40 mg tablet See Rx Instructions .Route 04/10/23 Unknown Rx .COMPLEX #90 tabs doxycycline monohydrate 100 mg 100 mg PO BID #20 caps 09/25/23 Unknown Rx capsule atorvastatin 40 mg tablet 40 mg PO DAILY #90 TABLETS 10/06/23 Unknown Rx Allergy/AdvReac Type Severity Reaction Status Date / Time Penicillins Allergy Severe Rash Verified 12/07/23 12:29 grass pollen Allergy Intermediate Other Verified 12/07/23 12:29 tree and shrub pollen Allergy Intermediate Other Verified 12/07/23 12:29 lisinopril AdvReac Intermediate Other Verified 12/07/23 12:29 hydrocodone bitartrate (From AdvReac Mild Unknown Verified 12/07/23 12:29 Vicodin) losartan AdvReac Heart Burn Verified 12/07/23 12:29 Family History Father , 65 Diabetes Hypertension cabg Mother , Age 65 Hypertension Renal failure Sister Cancer Sister Diabetes Cardiomegaly Surgical History H/O coronary artery bypass surgery (04/10/13) History of left heart catheterization (07/26/18) Atherosclerotic heart disease of [place] coronary artery without angina pectoris Social History household members: children Smoking Status: Never smoker alcohol intake: never substance use type: does not use caffeine: Yes Type: coffee Number of servings: 2 ROS ROS ED Constitutional Constitutional ED: Reports fever(s); Denies chills Eyes Eyes: Denies change in vision or diplopia ENT ENT ED: Denies rhinorrhea or sore throat Cardiovascular Cardiovascular: Denies chest pain or palpitations Respiratory/Chest Respiratory/Chest: Denies cough or dyspnea Gastrointestinal Gastrointestinal: Denies abdominal pain, diarrhea, nausea or vomiting Genitourinary Genitourinary ED: Denies dysuria or hematuria Musculoskeletal Musculoskeletal: Reports extremity pain; Denies neck pain Integumentary Reports wounds; Denies Abrasions or rash Neurologic Neurologic: Reports paresthesias RLE and LLE; Denies weakness Psychiatric Psychiatric: Denies anxiety or suicidal thoughts EXAM Physical Exam Const Vital Signs: 12/07/23 12:29 12/07/23 12:34 Temperature 99 F 99 F Temperature Source Oral Oral Pulse Rate 88 88 Respiratory Rate 18 18 Blood Pressure 154/74 H 154/74 H Blood Pressure Mean 100 100 Pulse Ox 97 97 Oxygen Delivery Method Room Air Room Air Positive well nourished and well developed General Appearance ED: well developed and NAD HEENT Reports moist mucous membranes normocephalic and atraumatic Eyes PERRL and EOMs intact bilaterally Neck full ROM and supple Resp normal respiratory effort and clear to auscultation bilaterally Cardio regular rate, regular rhythm and no murmurs GI non-tender and non-distended Auscultation: normoactive bowel sounds Palpation: soft Back/Spine normal ROM and normal to inspection General Back: other FROM Extremity Extremity Narrative: Ulcerated wound plantar aspect of the distal right foot, no tenderness there the patient insensate; or surrounding erythema no discharge or abscess or fluctuance, erythema progresses to the dorsum of the foot base of the toes 4 and 5, with lymphangitis streaking up to the underwood. No subcutaneous emphysema. No necrotic tissue. No inguinal lymphadenopathy. General Extremety ED: Yes tenderness; Negative for edema or pulses abnormal General Extremity: Negative for edema or pulses abnormal Neuro oriented x3 and no focal motor deficits Neuro Narrative: Sensory deficit forefeet bilaterally chronic per patient. Sensorium / Orientation: alert Motor Exam: strength 5/5 throughout Psych mental status grossly normal and thought process normal Skin no wounds Rashes: no rashes Discharge Plan Triage Chief Complaint: Lower Extremity Injury ED Provider: Nick Harris Dx/Rx/DC Orders Clinical Impression: Diabetic infection of right foot Prescriptions: No Action cholecalciferol (vitamin D3) 50 mcg (2,000 unit) capsule 2,000 units PO DAILY Patient Comments: TAKE 1 CAPSULE BY MOUTH EVERY DAY insulin degludec [Tresiba FlexTouch U-100] 100 unit/mL (3 mL) insulin pen 50 unit SC DAILY insulin aspart U-100 100 unit/mL (3 mL) insulin pen 40 unit subcut BREAKFAST Rx Instructions: sliding scale albuterol sulfate [Proventil HFA] 90 mcg/actuation HFA aerosol inhaler 2 puff INHALATION Q6H PRN (Reason: Sob &/Or Wheezing) metformin 1,000 mg tablet 1,000 mg PO BID (DME) pen needle, diabetic 31 gauge x 5/16 needle See Rx Instructions .ROUTE .MEDSUPPLY Qty: 1200 Patient Comments: USE DIRECTED 4 TIMES DAILY WITH INSULIN DX E11.9 Rx Instructions: As directed losartan 50 mg tablet 50 mg PO DAILY Qty: 90 3RF (DME) FreeStyle Moses 14 Day Sensor Kit See Rx Instructions .ROUTE .MEDSUPPLY Qty: 1 Patient Comments: USE 1 SENSOR EVERY 14 DAYS Rx Instructions: As directed doxycycline monohydrate 100 mg capsule 100 mg PO BID Qty: 20 0RF insulin aspart U-100 100 unit/mL (3 mL) insulin pen 30 unit subcut .COMPLEX Rx Instructions: 30 units subcutaneously 30 units at lunch and dinner; amlodipine 10 mg Tablet 10 mg PO DAILY Qty: 30 2RF metoprolol succinate 50 mg tablet extended release 24 hr 50 mg PO DAILY Qty: 90 3RF Patient Comments: patient unsure if she is taking this at home or not Eliquis 5 mg tablet See Rx Instructions .ROUTE .COMPLEX Qty: 60 11RF Dose Instruction: TAKE 1 TABLET BY MOUTH TWICE A DAY Rx Instructions: TAKE 1 TABLET BY MOUTH TWICE A DAY furosemide 40 mg tablet See Rx Instructions .ROUTE .COMPLEX Qty: 90 3RF Dose Instruction: TAKE 1 TABLET BY MOUTH EVERY DAY IN THE MORNING Rx Instructions: TAKE 1 TABLET BY MOUTH EVERY DAY IN THE MORNING atorvastatin 40 mg tablet 40 mg PO DAILY Qty: 90 3RF Primary Care Provider: Fara Bernal Referrals: Fara Bernal DO [Primary Care Provider] - Print Language: Turkmen Disposition Disposition: Acute Care [facility]
--- NOTE | 2023-12-07 14:23 | ED.VIS.LOWEX ---
HPI History of Present Illness Chief Complaint: Lower Extremity Injury Informant: patient and PCP (Podiatry) Narrative Narrative: 63-year-old female poorly controlled diabetic with a history of a wound on her right foot, has been going to wound care for it, last time she saw all of this area was a week ago when she was at wound care, she states that her skin are wrapped around it and she has had some soreness for the last 2 or 3 days, today in wound care they unwrapped it and saw that it appears to be infected with lymphangitic streaking going up her leg and it is painful. She states she had a fever when she was in hyperbaric oxygen chamber yesterday, but she does not today and she does not have any systemic symptoms at this time. [facility] Medical History Essential (primary) hypertension Osteomyelitis Left rotator cuff tear Impingement of left shoulder Left shoulder pain PAF (paroxysmal atrial fibrillation) Diabetic retinopathy associated with type 2 diabetes mellitus Obesity Skin lesion of left lower extremity Dysarthria Dyspnea Chronic diastolic (congestive) heart failure MARLEN (obstructive sleep apnea) Slurred speech CVA (cerebral vascular accident) (12/14/18) Type 2 diabetes mellitus Incontinent of urine neck/back pain Limb weakness Anemia Shoulder pain Arthritis History of deep venous thrombosis (DVT) of distal vein of left lower extremity (04/13/13) 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) Hyperlipidemia History of non-ST elevation myocardial infarction (NSTEMI) (04/08/13) History of non-Hodgkin's lymphoma (2012) Polycystic ovaries IBS (irritable bowel syndrome) Home Medications ?Medication ?Instructions ?Recorded ?Last Taken ?Type albuterol sulfate 90 mcg/actuation 2 puff inhalation Q6H PRN Sob &/Or 08/14/19 04/05/23 10:00 History aerosol inhaler (Proventil HFA) Wheezing metformin 1,000 mg tablet 1,000 mg PO BID type II diabetes 04/02/20 12/06/23 History pen needle, diabetic 31 gauge x #1,200 ea 04/02/20 Unknown History 06/28 losartan 50 mg tablet 50 mg PO DAILY bp #90 tabs 07/26/21 12/06/23 Rx flash glucose sensor (FreeStyle #1 ea 10/19/21 Unknown History Moses 14 Day Sensor kit) insulin degludec 100 unit/mL (3 50 unit subcut DAILY type II 10/19/21 12/06/23 History mL) subcutaneous pen (Tresiba diabetes FlexTouch U-100 insulin) amlodipine 10 mg tablet 10 mg PO DAILY #30 tabs 04/07/23 Unknown Rx apixaban 5 mg tablet (Eliquis) See Rx Instructions .Route 04/10/23 12/06/23 Rx .COMPLEX #60 TABLETS furosemide 40 mg tablet See Rx Instructions .Route 04/10/23 12/06/23 Rx .COMPLEX #90 tabs atorvastatin 40 mg tablet 40 mg PO DAILY #90 TABLETS 10/06/23 12/06/23 Rx insulin lispro 100 unit/mL 30 unit subcut TIDCM 12/07/23 12/06/23 History subcutaneous pen (Humalog KwikPen (U-100) Insulin) levothyroxine 25 mcg tablet 25 mcg PO DAILY 12/07/23 12/06/23 History metoprolol succinate 100 mg 100 mg PO DAILY 12/07/23 12/06/23 History tablet,extended release 24 hr Allergy/AdvReac Type Severity Reaction Status Date / Time Penicillins Allergy Severe Rash Verified 12/07/23 12:29 grass pollen Allergy Intermediate Other Verified 12/07/23 12:29 tree and shrub pollen Allergy Intermediate Other Verified 12/07/23 12:29 lisinopril AdvReac Intermediate Other Verified 12/07/23 12:29 hydrocodone bitartrate (From AdvReac Mild Unknown Verified 12/07/23 12:29 Vicodin) losartan AdvReac Heart Burn Verified 12/07/23 12:29 Family History Father , 65 Diabetes Hypertension cabg Mother , Age 65 Hypertension Renal failure Sister Cancer Sister Diabetes Cardiomegaly Surgical History H/O coronary artery bypass surgery (04/10/13) History of left heart catheterization (07/26/18) Atherosclerotic heart disease of [place] coronary artery without angina pectoris Social History household members: children Smoking Status: Never smoker alcohol intake: never substance use type: does not use caffeine: Yes Type: coffee Number of servings: 2 ROS ROS ED Constitutional Constitutional ED: Reports fever(s); Denies chills Eyes Eyes: Denies change in vision or diplopia ENT ENT ED: Denies rhinorrhea or sore throat Cardiovascular Cardiovascular: Denies chest pain or palpitations Respiratory/Chest Respiratory/Chest: Denies cough or dyspnea Gastrointestinal Gastrointestinal: Denies abdominal pain, diarrhea, nausea or vomiting Genitourinary Genitourinary ED: Denies dysuria or hematuria Musculoskeletal Musculoskeletal: Reports extremity pain; Denies neck pain Integumentary Reports wounds; Denies Abrasions or rash Neurologic Neurologic: Reports paresthesias RLE and LLE; Denies weakness Psychiatric Psychiatric: Denies anxiety or suicidal thoughts EXAM Physical Exam Const Vital Signs: 12/07/23 12:29 12/07/23 12:34 12/07/23 15:00 Temperature 99 F 99 F 97 F L Temperature Source Oral Oral Oral Pulse Rate 88 88 81 Respiratory Rate 18 18 18 Blood Pressure 154/74 H 154/74 H 148/78 H Blood Pressure Mean 100 100 101 Pulse Ox 97 97 98 Oxygen Delivery Method Room Air Room Air Room Air Positive well nourished and well developed General Appearance ED: well developed and NAD HEENT Reports moist mucous membranes normocephalic and atraumatic Eyes PERRL and EOMs intact bilaterally Neck full ROM and supple Resp normal respiratory effort and clear to auscultation bilaterally Cardio regular rate, regular rhythm and no murmurs GI non-tender and non-distended Auscultation: normoactive bowel sounds Palpation: soft Back/Spine normal ROM and normal to inspection General Back: other FROM Extremity Extremity Narrative: Ulcerated wound plantar aspect of the distal right foot, no tenderness there the patient insensate; or surrounding erythema no discharge or abscess or fluctuance, erythema progresses to the dorsum of the foot base of the toes 4 and 5, with lymphangitis streaking up to the underwood. No subcutaneous emphysema. No necrotic tissue. No inguinal lymphadenopathy. General Extremety ED: Yes tenderness; Negative for edema or pulses abnormal General Extremity: Negative for edema or pulses abnormal Neuro oriented x3 and no focal motor deficits Neuro Narrative: Sensory deficit forefeet bilaterally chronic per patient. Sensorium / Orientation: alert Motor Exam: strength 5/5 throughout Psych mental status grossly normal and thought process normal Skin no wounds Rashes: no rashes MDM MDM MDM Narrative Medical decision making narrative: Labs obtained and noted. Patient is not clinically septic and her lactate is normal and her vital signs are normal. I obtained x-rays of the right foot, 3 views of interpretation showed no acute bony involvement at this time or subcutaneous air. Dosed with vancomycin and Cipro since she is penicillin allergic to help cover for Pseudomonas, discussed with podiatry and hospitalist for admission. Lab Data Attestation: I reviewed the patient's lab results. Labs: Laboratory Results - last 24 hr 12/07/23 15:05 WBC 11.8 H RBC 4.14 L Hgb 11.6 L Hct 35.6 L MCV 86.0 MCH 28.0 MCHC 32.6 RDW Std Deviation 46.0 H RDW Coeff of Dutch 14.7 H Plt Count 207 MPV 11.5 Immature Gran % (Auto) 0.300 Neut % (Auto) 68.8 Lymph % (Auto) 21.7 [place] % (Auto) 6.8 Eos % (Auto) 2.0 Baso % (Auto) 0.4 Absolute Neuts (auto) 8.1 H Absolute Lymphs (auto) 2.57 Nucleated RBC % 0 ESR 54 H Sodium 136 Potassium 3.7 Chloride 101 Carbon Dioxide 28.0 Anion Gap 7 BUN 28 H Creatinine 0.94 Estim Creat Clear Calc 66.86 Est GFR (MDRD) Af Amer 77 Est GFR (MDRD) Non-Af 63 BUN/Creatinine Ratio 29.7 H Glucose 211 H Lactic Acid 1.5 Calcium 9.7 C-React Prot Ext Range 120.00 H Radiography Diagnostic Testing: Clinical Impression(s) from Imaging Studies Foot X-Ray 12/07/23 15:07 IMPRESSION: Diffuse soft tissue swelling. Plantar spur. Electronically Signed: William Hines MD at 15:23 EDT , Management Discussion w/another healthcare provider: Hospitalist and Teletypewriter Installer (Atilio) Discharge Plan Dx/Rx/DC Orders Clinical Impression: Diabetic infection of right foot Disposition Disposition: Acute Care Hospital [facility]
[2023-12-07] MEDS: Ciprofloxacin 400 MG/200 ML BAG 200 MG IV (15:04)
--- NOTE | 2023-12-07 15:07 | RAD_ITS ---
STUDY: X-RAY - RIGHT FOOT CLINICAL: Female, 63 years old. Infection TECHNIQUE: 3 view(s) of the foot. COMPARISON: Comparison is made with prior study dated September 25, 2023. FINDINGS: There is a plantar calcaneal spur. Degenerative changes at the level of the tarsal joints. Normal metatarsi. There is degenerative arthrosis of the metatarsophalangeal joint of the hallux with a hallux valgus deformity. Normal tibial and fibular sesamoid bones. Normal interphalangeal joint of the great toe. Normal phalanges of the great toe. Normal second through fifth metatarsophalangeal joints. Normal interphalangeal joints and phalanges of the lesser toes. Diffuse soft tissue swelling. Vascular calcification. RAD/Foot min 3 Views IMPRESSION: Diffuse soft tissue swelling. Plantar spur. Electronically Signed: William Hines MD at 15:23 EDT ,
[2023-12-07 15:20] LABS: Erythrocyte Sedimentation Rate 54 mm/hr (0-30)
[2023-12-07 15:23] LABS: Absolute Lymphocyte Count 2.57 X10^3/uL (0.83-4.51); Absolute Neutrophil Count 8.1 X10^3/uL (2.0-7.7); Basophil# 0.05 X10^3/uL; Basophil% 0.4 % (0-1); Eosinophil# 0.24 X10^3/uL; Hematocrit 35.6 % (37-47); Hemoglobin 11.6 g/dL (12.0-15.0); Lymphocyte # 2.57 X10^3/ul (0.83-4.51); Lymphocyte % 21.7 % (19-41); Mean Corp Hgb Conc 32.6 g/dL (32-36); Mean Platelet Vol. 11.5 fl (6.2-12.0); Monocyte# 0.81 X10^3/uL; Monocyte% 6.8 % (0-10); NRBC Flagged by Analyzer 0 % (0-5); Neutrophil # 8.12 X10^3/uL (2.7-7.7); Neutrophil % 68.8 % (47-70); Platelet Count 207 K/mm3 (150-450); RBC Distribution Width CV 14.7 % (11.6-14.6); Red Blood Count 4.14 M/mm3 (4.2-5.4); White Blood Count 11.8 K/mm3 (4.4-11.0)
[2023-12-07 15:43] LABS: Anion Gap 7 (5-15); BUN 28 mg/dL (7-18); BUN/Creat Ratio 29.7 RATIO (10-20); Calcium,Total 9.7 mg/dL (8.5-10.1); Chloride 101 mmol/L (98-107); Creatinine, Serum 0.94 mg/dL (0.55-1.02); EST Glomerular Filtration Rate 63 mL/min (>60); Est Glom Filt Rate - Afr Amer 77 mL/min (>60); Estimated Creatinine Clearance 66.86 ml/min; Glucose 211 mg/dL (74-106); Potassium 3.7 mmol/L (3.5-5.1); Sodium Level 136 mmol/L (136-145)
[2023-12-07 15:44] LABS: Lactic Acid 1.5 mmol/L (0.4-1.9)
--- NOTE | 2023-12-07 16:03 | PCM.HP.STD ---
HPI - General General Date of Admission: 12/07/23 Date of Service: 12/07/23 Chief Complaint: Right foot wound HPI Narrative JOSH GRAY, is a 63-year-old female history of diabetes, paroxysmal atrial fibrillation, hypertension, coronary artery disease status post CABG, CVA, right plantar foot wound following at the wound center who presented to [facility] ED 12/07/2023 from the wound center due to cellulitis on her right foot. She has an area on the bottom of her right foot which she has been following for the wound center and has been undergoing hyperbaric oxygen treatments and this has been healing well, she reports earlier this week she noted some redness on the top of her foot which was new but overall foot was wrapped and she couldn't see the extent and when she went to the wound center they unwrapped it and noticed she had streaking up the leg and was advised that she come to the ED for further evaluation. in the ED white blood cell count 11.8, CRP 120 and ESR 54. Foot x-ray demonstrated diffuse soft tissue swelling. Patient started on antibiotics and hospitalist contacted for admission. Patient evaluated at bedside and reports history as above. Unable to feel the bottom of her foot and has no pain on the plantar aspect the lesion for which she has been following with the wound center but does have pain on the top lateral portion of her foot around the fourth and fifth digits where the cellulitis is. Reports yesterday she had a temperature of 100.8 x 1. Has a bit of a headache, some chronic intermittent diarrhea and a chronic cough but no other new or acute complaints. [facility] Medical History Essential (primary) hypertension Osteomyelitis Left rotator cuff tear Impingement of left shoulder Left shoulder pain PAF (paroxysmal atrial fibrillation) Diabetic retinopathy associated with type 2 diabetes mellitus Obesity Skin lesion of left lower extremity Dysarthria Dyspnea Chronic diastolic (congestive) heart failure MARLEN (obstructive sleep apnea) Slurred speech CVA (cerebral vascular accident) (12/14/18) Type 2 diabetes mellitus Incontinent of urine neck/back pain Limb weakness Anemia Shoulder pain Arthritis History of deep venous thrombosis (DVT) of distal vein of left lower extremity (04/13/13) 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) Hyperlipidemia History of non-ST elevation myocardial infarction (NSTEMI) (04/08/13) History of non-Hodgkin's lymphoma (2012) Polycystic ovaries IBS (irritable bowel syndrome) Home Medications ?Medication ?Instructions ?Recorded ?Last Taken ?Type albuterol sulfate 90 mcg/actuation 2 puff inhalation Q6H PRN Sob &/Or 08/14/19 04/05/23 10:00 History aerosol inhaler (Proventil HFA) Wheezing metformin 1,000 mg tablet 1,000 mg PO BID type II diabetes 04/02/20 12/06/23 History pen needle, diabetic 31 gauge x #1,200 ea 04/02/20 Unknown History 06/28 losartan 50 mg tablet 50 mg PO DAILY bp #90 tabs 07/26/21 12/06/23 Rx flash glucose sensor (FreeStyle #1 ea 10/19/21 Unknown History Moses 14 Day Sensor kit) insulin degludec 100 unit/mL (3 50 unit subcut DAILY type II 10/19/21 12/06/23 History mL) subcutaneous pen (Tresiba diabetes FlexTouch U-100 insulin) amlodipine 10 mg tablet 10 mg PO DAILY #30 tabs 04/07/23 Unknown Rx apixaban 5 mg tablet (Eliquis) See Rx Instructions .Route 04/10/23 12/06/23 Rx .COMPLEX #60 TABLETS furosemide 40 mg tablet See Rx Instructions .Route 04/10/23 12/06/23 Rx .COMPLEX #90 tabs atorvastatin 40 mg tablet 40 mg PO DAILY #90 TABLETS 10/06/23 12/06/23 Rx insulin lispro 100 unit/mL 30 unit subcut TIDCM 12/07/23 12/06/23 History subcutaneous pen (Humalog KwikPen (U-100) Insulin) levothyroxine 25 mcg tablet 25 mcg PO DAILY 12/07/23 12/06/23 History metoprolol succinate 100 mg 100 mg PO DAILY 12/07/23 12/06/23 History tablet,extended release 24 hr Allergy/AdvReac Type Severity Reaction Status Date / Time Penicillins Allergy Severe Rash Verified 12/07/23 12:29 grass pollen Allergy Intermediate Other Verified 12/07/23 12:29 tree and shrub pollen Allergy Intermediate Other Verified 12/07/23 12:29 lisinopril AdvReac Intermediate Other Verified 12/07/23 12:29 hydrocodone bitartrate (From AdvReac Mild Unknown Verified 12/07/23 12:29 Vicodin) losartan AdvReac Heart Burn Verified 12/07/23 12:29 Family History Father , 65 Diabetes Hypertension cabg Mother , Age 65 Hypertension Renal failure Sister Cancer Sister Diabetes Cardiomegaly Surgical History H/O coronary artery bypass surgery (04/10/13) History of left heart catheterization (07/26/18) Atherosclerotic heart disease of [place] coronary artery without angina pectoris Social History household members: children Smoking Status: Never smoker alcohol intake: never substance use type: does not use caffeine: Yes Type: coffee Number of servings: 2 ROS ROS Narrative General: Had low-grade fever yesterday HENT: Slight headache, denies stuffy nose, denies sore throat EYES: Denies changes in vision Resp: Chronic cough, denies shortness of breath Cardiac: Denies chest pain GI: Denies abdominal pain, some chronic intermittent diarrhea, denies nausea/vomiting : Denies changes in urination Extremity: Denies swelling MSK: Denies weakness Neuro: Denies any numbness/tingling Heme: Denies any bleeding or bruising Skin: Has cellulitic changes on dorsal aspect of lateral right foot Psychiatric: No complaints voiced Vital Signs Vital Signs Vital Signs: 12/07/23 12:29 12/07/23 12:34 12/07/23 15:00 Temperature 99 F 99 F 97 F L Temperature Source Oral Oral Oral Pulse Rate 88 88 81 Respiratory Rate 18 18 18 Blood Pressure 154/74 H 154/74 H 148/78 H Blood Pressure Mean 100 100 101 Pulse Ox 97 97 98 Oxygen Delivery Method Room Air Room Air Room Air Weight Weight: 93.077 kg Body Mass Index (BMI) 34.7 Physical Exam Narrative General: Alert, oriented, no apparent distress HEENT: Atraumatic, normocephalic Eyes: Anicteric, normal conjunctiva, extraocular movements grossly intact Neck: Supple Respiratory: Clear to auscultation bilaterally, normal respiratory effort Cardiovascular: Regular rate GI: Soft, nontender, nondistended Extremities: No edema Musculoskeletal: Moving all extremities Neuro: No overt focal neurological deficits Skin: Patient has clean-based ulceration on lateral plantar aspect of right foot without drainage, has cellulitic changes on fourth and fifth dorsal aspect of right foot with lymphangitic streaking up her leg and pain when trying to separate the lateral 2 toes Psych: Cooperative Results Lab / Micro Data 12/07/23 15:05 12/07/23 15:05 Labs: Laboratory Results - last 24 hr 12/07/23 15:05: WBC 11.8 H, RBC 4.14 L, Hgb 11.6 L, Hct 35.6 L, MCV 86.0, MCH 28.0, MCHC 32.6, RDW Std Deviation 46.0 H, RDW Coeff of Dutch 14.7 H, Plt Count 207, MPV 11.5, Immature Gran % (Auto) 0.300, Neut % (Auto) 68.8, Lymph % (Auto) 21.7, [place] % (Auto) 6.8, Eos % (Auto) 2.0, Baso % (Auto) 0.4, Absolute Neuts (auto) 8.1 H, Absolute Lymphs (auto) 2.57, Nucleated RBC % 0, ESR 54 H, Sodium 136, Potassium 3.7, Chloride 101, Carbon Dioxide 28.0, Anion Gap 7, BUN 28 H, Creatinine 0.94, Estim Creat Clear Calc 66.86, Est GFR (MDRD) Af Amer 77, Est GFR (MDRD) Non-Af 63, BUN/Creatinine Ratio 29.7 H, Glucose 211 H, Lactic Acid 1.5, Calcium 9.7, C-React Prot Ext Range 120.00 H Imaging Radiology Impression Foot X-Ray 12/07/23 15:07 IMPRESSION: Diffuse soft tissue swelling. Plantar spur. Electronically Signed: William Hines MD at 15:23 EDT , Assessment & Plan Assessment/Plan (1) Diabetic infection of right foot: PLAN: Plan #Right sided foot lesion -Patient has plantar wound that has been healing and following on an outpatient basis, presently this cellulitis is new and is a separate problem, is erythematous and painful with lymphangitic streaking -CRP 120 with ESR 54, white blood cell count mildly elevated at 11.8 with left shift and patient reports she had a Tmax of 100.8 yesterday -Will broadly cover given diabetic foot infection, give a beta-lactam allergy patient on Merrem and vancomycin -X-ray demonstrated tissue swelling -Consult podiatry -Appears superficial nature and only started 3 days ago, will defer MRI or further imaging to podiatry -May need ID involvement pending progress #Hx chronic HFpEF - echocardiogram 04/06/2023 with stage II diastolic dysfunction - Daily weights, I's and O's - appears to be euvolemic at this time #Type 2 diabetes mellitus -Glucose checks and sliding scale insulin -Continue long-acting insulin but will decrease slightly and can escalate if glucoses remain high, will want good glucose control but also want to avoid hypoglycemia # paroxysmal atrial fibrillation -On beta-vu and Eliquis -Will need to hold Eliquis if patient ends up needing surgical intervention # history of coronary artery disease status post CABG/ history of CVA - patient on statin and Eliquis and metoprolol #Hypothyroidism -Continue Synthroid # Hypertension -Continue amlodipine and beta-vu and losartan #DVT ppx: On Eliquis Daphne Long MD Charges/Coding Visit Charges Inpatient E&M: 42170 Init Hosp L2
[2023-12-07] MEDS: Vancomycin HCl 1,500 MG in 0.9% Normal Saline (500mL Bag) 500 ML 250 MG IV (16:09)
[2023-12-07] MEDS: Vancomycin IV 500 MG/100 ML BAG 100 MG IV (18:42)
[2023-12-07] MEDS: Insulin Lispro 100 UNIT/ML INSULN.PEN 10 UNIT SC (18:43)
--- NOTE | 2023-12-07 19:04 | PCM.RX.CS ---
Consult Antibiotic Management Pharmacy has been consulted to manage selected antibiotic: Vancomycin Type of Intervention Type of Consult: New start Suspected Infection Suspected Infection: Skin/Soft tissue Prior Doses of Antibiotics Prior Doses of Antibiotics Received/Current Regimen: Vancomycin 1500 mg IV x 1, and vancomycin 500 mg IV x 1 (total loading dose 2000 mg) given 12/07/23 @ 1842 Labs Labs: Sodium 136 mmol/L (136-145) 12/07/23 15:05 Potassium 3.7 mmol/L (3.5-5.1) 12/07/23 15:05 Chloride 101 mmol/L (98-107) 12/07/23 15:05 Carbon Dioxide 28.0 mmol/L (21.0-32.0) 12/07/23 15:05 Anion Gap 7 (5-15) 12/07/23 15:05 BUN 28 mg/dL (7-18) H 12/07/23 15:05 Creatinine 0.94 mg/dL (0.55-1.02) 12/07/23 15:05 Est GFR (MDRD) Af Amer 77 mL/min (>60) 12/07/23 15:05 Est GFR (MDRD) Non-Af 63 mL/min (>60) 12/07/23 15:05 BUN/Creatinine Ratio 29.7 RATIO (10-20) H 12/07/23 15:05 Glucose 211 mg/dL (74-106) H 12/07/23 15:05 Dosing Weight Weight used for dosin kg Estimated Creatinine Clearance Estimated Creatinine Clearance: ~67 Goal Trough Goal Trough: 15-20 mcg/mL Pharmacy Plan for Drug Dosing Pharmacy Plan for Drug Dosing: Vancomycin 2000 mg IV loading dose, followed by 1000 mg IV Q12H Pharmacy Service will continue to monitor and adjust dosing as required. Follow-Up Labs Follow-Up Labs: Trough: Vancomycin Date/Time Labs Ordered Labs to be done on [date and time ordered]: 12/09/23 @ 6227
[2023-12-07 19:08] LABS: Bedside Glucose 222 mg/dL (74-106)
[2023-12-07] MEDS: APIXABAN 5 MG TABLET PO (21:46)
[2023-12-07] MEDS: Insulin Lispro 100 UNIT/ML INSULN.PEN SC (21:47)
[2023-12-07] MEDS: amLODIPine 10 MG Tablet PO (21:51)
[2023-12-07] MEDS: Losartan Potassium 50 MG Tablet PO (21:51)
[2023-12-07] MEDS: Acetaminophen 500 MG Tablet 1000 MG PO (21:51)
[2023-12-07] MEDS: Meropenem 1 GM in 0.9% Normal Saline (100mL MB+) 100 ML IV (21:51)
[2023-12-07] MEDS: Metoprolol(XL)Succ 100 MG Tablet PO (21:52)
[2023-12-07 23:35] LABS: Bedside Glucose 235 mg/dL (74-106)
[2023-12-08 02:10] VITALS: BP 138/72; PULSE 74; RESP 16; TEMP 36.6; O2SAT 99
[2023-12-08 05:21] VITALS: BMI 34.7
[2023-12-08 05:21] LABS: Absolute Lymphocyte Count 2.05 X10^3/uL (0.83-4.51); Absolute Neutrophil Count 5.4 X10^3/uL (2.0-7.7); Basophil# 0.04 X10^3/uL; Basophil% 0.5 % (0-1); Eosinophil# 0.32 X10^3/uL; Eosinophils% 3.8 % (0-5); Hemoglobin 11.1 g/dL (12.0-15.0); Lymphocyte # 2.05 X10^3/ul (0.83-4.51); Lymphocyte % 24.1 % (19-41); Mean Corp Hgb Conc 31.7 g/dL (32-36); Mean Corpuscular Hgb 27.5 pg (27.0-32.0); Mean Corpuscular Volume 86.6 fL (81-99); Mean Platelet Vol. 11.4 fl (6.2-12.0); Monocyte# 0.66 X10^3/uL; Monocyte% 7.7 % (0-10); NRBC Flagged by Analyzer 0 % (0-5); Neutrophil # 5.42 X10^3/uL (2.7-7.7); Neutrophil % 63.5 % (47-70); Platelet Count 193 K/mm3 (150-450); RBC Distribution Width CV 14.8 % (11.6-14.6); RBC Distribution Width SD 47.6 fl (35.1-43.9); Red Blood Count 4.04 M/mm3 (4.2-5.4); White Blood Count 8.5 K/mm3 (4.4-11.0)
[2023-12-08 06:18] LABS: ALB/GLOB Ratio 0.6 RATIO (0.9-2.4); AST(SGOT) 13 U/L (15-37); Alanine Aminotransfer ALT/SGPT 12 U/L (13-56); Albumin, Serum 2.5 g/dL (3.2-5.0); Alkaline Phosphatase 83 U/L (45-117); Anion Gap 6 (5-15); BUN 22 mg/dL (7-18); BUN/Creat Ratio 23.4 RATIO (10-20); Chloride 104 mmol/L (98-107); Creatinine, Serum 0.94 mg/dL (0.55-1.02); EST Glomerular Filtration Rate 64 mL/min (>60); Est Glom Filt Rate - Afr Amer 77 mL/min (>60); Estimated Creatinine Clearance 66.38 ml/min; Globulin 4.4 g/dL (2.2-4.2); Glucose 193 mg/dL (74-106); Potassium 3.4 mmol/L (3.5-5.1); Protein, Total 6.9 g/dL (6.4-8.2); Sodium Level 137 mmol/L (136-145)
[2023-12-08] MEDS: Meropenem 1 GM in 0.9% Normal Saline (100mL MB+) 100 ML IV ×3 (06:33→22:05)
[2023-12-08] MEDS: Vancomycin IV 1,000 MG/200 ML BAG 200 MG IV (06:33)
[2023-12-08] MEDS: Levothyroxine 25 MCG TABLET PO (06:35)
[2023-12-08] MEDS: Acetaminophen 500 MG Tablet 1000 MG PO ×3 (06:35→22:06)
--- NOTE | 2023-12-08 07:43 | PCM.CONS.GEN ---
Assessment & Plan Assessment/Plan (1) Cellulitis of foot, right: (2) Osteomyelitis: QUALIFIERS: Osteomyelitis type: unspecified type Osteomyelitis location: foot Laterality: right Qualified Code(s): M86.9 - Osteomyelitis, unspecified (3) Non-pressure chronic 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: (4) Diabetes mellitus with diabetic polyneuropathy: QUALIFIERS: Diabetes mellitus group home insulin use: with group home use Diabetes mellitus type: type 2 Qualified Code(s): E11.42 - Type 2 diabetes mellitus with diabetic polyneuropathy; Z79.4 - alf (current) use of insulin (5) Type 2 diabetes mellitus with foot ulcer: QUALIFIERS: Diabetes mellitus termite technician insulin use: with group home use Qualified Code(s): E11.621 - Type 2 diabetes mellitus with foot ulcer; L97.509 - Non-pressure chronic ulcer of other part of unspecified foot with unspecified severity; Z79.4 - termite technician (current) use of insulin (6) Hallux valgus of right foot: (7) Tailor's bunion of right foot: (8) Peripheral arterial disease: (9) Diabetic infection of right foot: PLAN: Plan Patient seen and evaluated Right foot Ulceration sub 5th metatarsal: There is a full-thickness ulceration noted to the plantar lateral aspect of the fifth metatarsal head with healthy granular layer with some scant fibrotic tissue around the margins. Periwound demonstrates hyperkeratosis. There is acute erythema about the dorsal fifth metatarsal head and fifth digit with lymphangitic streak along the dorsal foot extending proximally to the distal anterior tibia. This is improving on IV antibiotics overnight. Ulceration measures 1.4 cm x 1 cm x 0.2 cm LEAS 10/13/23: Right GARCÍA 0.87, moderate arterial insufficiency; Doppler and PVR waveforms demonstrate infra popliteal disease. Left GARCÍA 0.41, severe arterial insufficiency. Doppler/PVR waveforms reveal distal SFA/popliteal and infrapopliteal disease. Patient continues to follow with Dr. Figueroa, vascular surgeon WBC currently 8.5 decreased from 11.8; CRP currently 102, decreased from 120; ESR 54 Recent HbgA1c 8.2% on 10/13/2023 Radiographs obtained 12/07/2023 demonstrate soft tissue swelling. MRI was ordered for further evaluation, MRI demonstrated acute osteomyelitis of the fifth metatarsal head, proximal phalanx, and distal phalanx of the fifth digit in addition to inflammation of the joint capsule and local soft tissues. Dakin's wet to dry dressing applied to ulceration site. Nursing may change dressing daily She is to remain nonweightbearing to right foot Medicine team currently following for medical management, they are greatly appreciated Infectious disease consulted for antibiotic management Vascular surgery consulted for possible management due to mild to moderate arterial occlusive disease right lower extremity Wound nurse following for assisting in dressing changes Discussed with the patient this morning pending MRI results surgical intervention may be warranted for an excision of the fifth metatarsal head of the right foot. Discussed with the patient that the procedure is not an elective procedure and is a limb salvage procedure to decrease spread of infection and prevent more proximal amputation. She is understanding of this. Discussed with the patient the procedure in detail and typical postoperative course. Discussed the risks and complications of the procedure. Discussed the complications include but are not limited to the following: Pain, continued pain, complex regional pain syndrome, phantom pain, infection, delayed healing/nonhealing, dehiscence, neuritis/numbness, scarring, poor cosmetic result, swelling, need for further surgery or procedure, floating toe, contracted toe, transfer lesion, difficulty wearing shoe gear, inability to wear shoe gear, stroke, heart attack, blood clot, addiction to pain medication, allergic reaction, loss of function, loss of limb, loss of life. Patient is understanding of these and was able to repeat these back. No promises were given. No guarantees were made. Patient will be consented for partial fifth ray amputation of the right foot and debridement of right foot ulceration. Patient to remain n.p.o. at this time with surgical intervention this afternoon, 12/08/23 pending results of MRI. This afternoon patient did eat breakfast and lunch and thus surgical intervention was canceled for this afternoon. Discussion was had with the patient about our discussion early this a.m. in which she was instructed to not eat or drink anything as surgical intervention would take place this afternoon. Patient states she had forgotten and did eat. I discussed with her intervention will now take place on 12/11/2023 at 1:30 PM and she will remain n.p.o. prior to surgical intervention. She reports she is understanding of this today. She will undergo partial fifth ray amputation of the right foot with debridement of right foot ulceration on 12/11/2023 at 1:30 PM, will be n.p.o. at midnight. Jr. Rosaura LaboyPHeather. [facility] [phone] HPI Consult Data Date of Consult: 12/08/23 HPI Narrative Reason for Consultation: Subfifth metatarsal head ulceration with right foot cellulitis HPI Narrative: JOSH GRAY, is a 63 F who presents to [facility] on 12/07/2023 with worsening cellulitis of the right foot and subfifth metatarsal head ulceration. Patient had been following with me in the wound care center and had been undergoing hyperbaric dives and applications of advanced wound care product, EpiFix. Ulceration had been healing well over the last 2 weeks following this therapy however she started to notice some redness on her fifth toe on 12/06/2023 and did have fever of 100.8 at that time. She did participate in hyperbaric dive the following morning and did see me in the wound care center after the dive and is noted that her cellulitis was worsening with lymphangitic streaking up the dorsal foot to the anterior aspect of the distal tibia. She reports she has been unable to feel the bottom of her foot due to her diabetic peripheral polyneuropathy. However she does report increasing pain in the fifth toe secondary to her acute cellulitis. At that time she was instructed to go to the ED for admission and to receive IV antibiotics. While in the ED she did undergo workup with right foot x-ray demonstrating diffuse soft tissue swelling. Lab work demonstrated WBC 11.8, CRP 120, and ESR 54. Patient was started on IV Vanco/meropenem secondary to beta-lactam allergy. She denies N/V/F/chills this a.m. and states she has had some intermittent diarrhea however this is chronic in nature. Denies further complaints. [facility] Medical History (Updated 12/07/23 @ 17:33 by Kerri Pretty) Hypothyroidism Diabetes Kidney stones Non-smoker CPAP (continuous positive airway pressure) dependence Asthma Myocardial infarct Atrial fibrillation Osteomyelitis Left rotator cuff tear Impingement of left shoulder Left shoulder pain PAF (paroxysmal atrial fibrillation) Diabetic retinopathy associated with type 2 diabetes mellitus Obesity Skin lesion of left lower extremity Dysarthria Dyspnea Chronic diastolic (congestive) heart failure MARLEN (obstructive sleep apnea) Slurred speech CVA (cerebral vascular accident) (12/14/18) Essential (primary) hypertension Type 2 diabetes mellitus Incontinent of urine neck/back pain Limb weakness Anemia Shoulder pain Arthritis History of deep venous thrombosis (DVT) of distal vein of left lower extremity (04/13/13) 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) Hyperlipidemia History of non-ST elevation myocardial infarction (NSTEMI) (04/08/13) History of non-Hodgkin's lymphoma (2012) Polycystic ovaries IBS (irritable bowel syndrome) Home Medications ?Medication ?Instructions ?Recorded ?Last Taken ?Type albuterol sulfate 90 mcg/actuation 2 puff inhalation Q6H PRN Sob &/Or 08/14/19 04/05/23 10:00 History aerosol inhaler (Proventil HFA) Wheezing metformin 1,000 mg tablet 1,000 mg PO BID type II diabetes 04/02/20 12/06/23 History pen needle, diabetic 31 gauge x #1,200 ea 04/02/20 Unknown History 06/28 losartan 50 mg tablet 50 mg PO DAILY bp #90 tabs 07/26/21 12/06/23 Rx flash glucose sensor (FreeStyle #1 ea 10/19/21 Unknown History Moses 14 Day Sensor kit) insulin degludec 100 unit/mL (3 50 unit subcut DAILY type II 10/19/21 12/06/23 History mL) subcutaneous pen (Tresiba diabetes FlexTouch U-100 insulin) amlodipine 10 mg tablet 10 mg PO DAILY #30 tabs 04/07/23 Unknown Rx apixaban 5 mg tablet (Eliquis) See Rx Instructions .Route 04/10/23 12/06/23 Rx .COMPLEX #60 TABLETS atorvastatin 40 mg tablet 40 mg PO DAILY #90 TABLETS 10/06/23 12/06/23 Rx insulin lispro 100 unit/mL 30 unit subcut TIDCM 12/07/23 12/06/23 History subcutaneous pen (Humalog KwikPen (U-100) Insulin) levothyroxine 25 mcg tablet 25 mcg PO DAILY 12/07/23 12/06/23 History metoprolol succinate 100 mg 100 mg PO DAILY 12/07/23 12/06/23 History tablet,extended release 24 hr Allergy/AdvReac Type Severity Reaction Status Date / Time Penicillins Allergy Severe Rash Verified 12/07/23 12:29 grass pollen Allergy Intermediate Other Verified 12/07/23 12:29 tree and shrub pollen Allergy Intermediate Other Verified 12/07/23 12:29 lisinopril AdvReac Intermediate Other Verified 12/07/23 12:29 hydrocodone bitartrate (From AdvReac Mild Unknown Verified 12/07/23 12:29 Vicodin) losartan AdvReac Heart Burn Verified 12/07/23 12:29 Family History Father , 65 Diabetes Hypertension cabg Mother , Age 65 Hypertension Renal failure Sister Cancer Sister Diabetes Cardiomegaly Surgical History (Updated 12/07/23 @ 17:32 by Kerri Pretty) History of appendectomy Hx of CABG History of left heart catheterization (07/26/18) H/O coronary artery bypass surgery (04/10/13) Atherosclerotic heart disease of [place] coronary artery without angina pectoris Social History household members: children Smoking Status: Never smoker alcohol intake: never substance use type: does not use caffeine: Yes Type: coffee Number of servings: 2 ROS Constitutional Constitutional: Denies chills, fever(s) or weakness Eyes Eyes: Denies diplopia or loss of vision ENT HEENT: Denies dysphagia, rhinorrhea or sore throat Cardiovascular Cardiovascular: Denies chest pain, claudication or palpitations Respiratory/Chest Respiratory/Chest: Denies dyspnea, shortness of breath at rest or wheezing Gastrointestinal Gastrointestinal: Denies abdominal pain, constipation, diarrhea, nausea or vomiting Genitourinary Genitourinary: Denies dysuria, hematuria or urinary urgency Musculoskeletal Musculoskeletal: Denies joint pain, joint stiffness or joint swelling Integumentary Integumentary: Denies jaundice, lesions or pruritus Neurologic Neurologic: Denies dizziness, numbness or seizures Psychiatric Psychiatric: Denies anxiety or depression Endocrine Endocrinology: Denies polydipsia, polyphagia or polyuria Hematologic/Lymphatic Hematologic/Lymphatic: Denies easy bleeding or easy bruising Allergic/Immunologic Allergic/Immunologic: Denies wheezing Physical Exam Const alert, oriented x3 and no apparent distress General Appearance: cooperative HEENT Head and Scalp: normal to inspection Eyes General Eye: normal appearance of both eyes Neck General: normal visual inspection Lymph Lymphatic: no lymphedema noted Lymphatic Narrative: Acute cellulitis with lymphangitic streaking dorsal foot and anterior distal tibia Resp normal respiratory effort Cardio regular rate and regular rhythm Extremity no calf tenderness Extremity Narrative: Right lower extremity: Vascular: DP and PT pulses nonpalpable. Doppler demonstrates monophasic DP and PT. CFT is less than 5 seconds to the digits. Hair growth is absent to digits. Normal temperature gradient noted proximally with increased warmth secondary to erythema consistent with acute cellulitis to dorsal foot and fifth digit. Neurologic: Gross sensation is intact to the foot. Protective sensation is absent secondary to diabetic peripheral polyneuropathy. Musculoskeletal: Muscle strength 5 of 5 age-appropriate. There is an HAV deformity noted with lateral deviation of the hallux in addition to tailor bunion deformity with plantar foot ulceration of the fifth metatarsal head. No pain to palpation about the ulcerative site however fifth digit is painful secondary to acute cellulitis. There is decreased range of motion of the ankle joint in dorsiflexion with the knee extended without pain or crepitus, full range of motion with knee flexed. No calf pain to palpation. Dermatologic: There is a full-thickness ulceration noted to the plantar lateral aspect of the fifth metatarsal head with healthy granular layer with some scant fibrotic tissue around the margins. Periwound demonstrates hyperkeratosis. There is acute erythema about the dorsal fifth metatarsal head and fifth digit with lymphangitic streak along the dorsal foot extending proximally to the distal anterior tibia. This is improving on IV antibiotics overnight. Ulceration measures 1.4 cm x 1 cm x 0.2 cm Skin skin turgor normal and no jaundice Neuro moves all extremities Lab / Micro Data 12/08/23 04:37 12/08/23 04:37 Labs: Laboratory Results - last 24 hr 12/07/23 15:05: WBC 11.8 H, RBC 4.14 L, Hgb 11.6 L, Hct 35.6 L, MCV 86.0, MCH 28.0, MCHC 32.6, RDW Std Deviation 46.0 H, RDW Coeff of Dutch 14.7 H, Plt Count 207, MPV 11.5, Immature Gran % (Auto) 0.300, Neut % (Auto) 68.8, Lymph % (Auto) 21.7, Johnston % (Auto) 6.8, Eos % (Auto) 2.0, Baso % (Auto) 0.4, Absolute Neuts (auto) 8.1 H, Absolute Lymphs (auto) 2.57, Nucleated RBC % 0, ESR 54 H, Sodium 136, Potassium 3.7, Chloride 101, Carbon Dioxide 28.0, Anion Gap 7, BUN 28 H, Creatinine 0.94, Estim Creat Clear Calc 66.86, Est GFR (MDRD) Af Amer 77, Est GFR (MDRD) Non-Af 63, BUN/Creatinine Ratio 29.7 H, Glucose 211 H, Lactic Acid 1.5, Calcium 9.7, C-React Prot Ext Range 120.00 H 12/07/23 18:41: POC Glucose 222 H 12/07/23 21:42: POC Glucose 235 H 12/08/23 04:37: WBC 8.5, RBC 4.04 L, Hgb 11.1 L, Hct 35.0 L, MCV 86.6, MCH 27.5, MCHC 31.7 L, RDW Std Deviation 47.6 H, RDW Coeff of Dutch 14.8 H, Plt Count 193, MPV 11.4, Immature Gran % (Auto) 0.400, Neut % (Auto) 63.5, Lymph % (Auto) 24.1, Johnston % (Auto) 7.7, Eos % (Auto) 3.8, Baso % (Auto) 0.5, Absolute Neuts (auto) 5.4, Absolute Lymphs (auto) 2.05, Nucleated RBC % 0, Sodium 137, Potassium 3.4 L, Chloride 104, Carbon Dioxide 27.0, Anion Gap 6, BUN 22 H, Creatinine 0.94, Estim Creat Clear Calc 66.38, Est GFR (MDRD) Af Amer 77, Est GFR (MDRD) Non-Af 64, BUN/Creatinine Ratio 23.4 H, Glucose 193 H, Calcium 9.0, Total Bilirubin 1.10 H, AST 13 L, ALT 12 L, Alkaline Phosphatase 83, C-React Prot Ext Range 102.00 H, Total Protein 6.9, Albumin 2.5 L, Globulin 4.4 H, Albumin/Globulin Ratio 0.6 L Imaging Radiology Impression Foot X-Ray 12/07/23 15:07 IMPRESSION: Diffuse soft tissue swelling. Plantar spur. Electronically Signed: William Hines MD at 15:23 EDT ,
--- NOTE | 2023-12-08 08:02 | WOUNDNOTE ---
wound photo: right foot
--- NOTE | 2023-12-08 08:03 | WOUNDNOTE ---
skin photo: right foot
[2023-12-08] MEDS: Insulin Lispro 100 UNIT/ML INSULN.PEN SC ×4 (08:06→22:06)
[2023-12-08] MEDS: Insulin Glargine-YFGN 100 UNIT/ML Pen 40 UNIT SC (08:07)
[2023-12-08] MEDS: Insulin Lispro 100 UNIT/ML INSULN.PEN 10 UNIT SC ×3 (08:07→16:25)
[2023-12-08 08:08] VITALS: PULSE 76
[2023-12-08] MEDS: amLODIPine 10 MG Tablet PO (08:08)
[2023-12-08] MEDS: Losartan Potassium 50 MG Tablet PO (08:08)
[2023-12-08] MEDS: Metoprolol(XL)Succ 100 MG Tablet PO (08:08)
[2023-12-08] MEDS: APIXABAN 5 MG TABLET PO (08:08)
[2023-12-08] MEDS: Atorvastatin Calcium 40 MG Tablet PO (08:09)
[2023-12-08 08:10] VITALS: BP 130/69; PULSE 73; RESP 16; TEMP 36.4; O2SAT 98
[2023-12-08 08:31] LABS: Bedside Glucose 186 mg/dL (74-106)
--- NOTE | 2023-12-08 09:23 | PN.HOSP_ITS ---
Subjective Subjective Doing well, redness has retreated in her foot. MRI is pending. Objective Data Objective Data Vital Signs: Vital Signs Temp Pulse Resp BP Pulse Ox O2 Del Method 97.6 F L 73 16 130/69 H 98 Room Air 12/08/23 08:10 12/08/23 08:10 12/08/23 08:10 12/08/23 08:10 12/08/23 08:10 12/08/23 09:00 Oxygen Delivery Method Room Air Weight: 202 lb 6.15 oz Body Mass Index (BMI) 34.7 Intake & Output: Intake and Output for Last 24 Hours 12/07/23 12/08/23 12/09/23 03:59 03:59 03:59 Intake Total 950 / 950 386.9 / 386.9 Balance 950 / 950 386.9 / 386.9 Lab / Micro Data 12/08/23 04:37 12/08/23 04:37 Labs: Laboratory Results - last 24 hr 12/07/23 15:05: WBC 11.8 H, RBC 4.14 L, Hgb 11.6 L, Hct 35.6 L, MCV 86.0, MCH 28.0, MCHC 32.6, RDW Std Deviation 46.0 H, RDW Coeff of Dutch 14.7 H, Plt Count 207, MPV 11.5, Immature Gran % (Auto) 0.300, Neut % (Auto) 68.8, Lymph % (Auto) 21.7, Wagoner % (Auto) 6.8, Eos % (Auto) 2.0, Baso % (Auto) 0.4, Absolute Neuts (auto) 8.1 H, Absolute Lymphs (auto) 2.57, Nucleated RBC % 0, ESR 54 H, Sodium 136, Potassium 3.7, Chloride 101, Carbon Dioxide 28.0, Anion Gap 7, BUN 28 H, Creatinine 0.94, Estim Creat Clear Calc 66.86, Est GFR (MDRD) Af Amer 77, Est GFR (MDRD) Non-Af 63, BUN/Creatinine Ratio 29.7 H, Glucose 211 H, Lactic Acid 1.5, Calcium 9.7, C-React Prot Ext Range 120.00 H 12/07/23 18:41: POC Glucose 222 H 12/07/23 21:42: POC Glucose 235 H 12/08/23 04:37: WBC 8.5, RBC 4.04 L, Hgb 11.1 L, Hct 35.0 L, MCV 86.6, MCH 27.5, MCHC 31.7 L, RDW Std Deviation 47.6 H, RDW Coeff of Dutch 14.8 H, Plt Count 193, MPV 11.4, Immature Gran % (Auto) 0.400, Neut % (Auto) 63.5, Lymph % (Auto) 24.1, Wagoner % (Auto) 7.7, Eos % (Auto) 3.8, Baso % (Auto) 0.5, Absolute Neuts (auto) 5.4, Absolute Lymphs (auto) 2.05, Nucleated RBC % 0, Sodium 137, Potassium 3.4 L , Chloride 104, Carbon Dioxide 27.0, Anion Gap 6, BUN 22 H, Creatinine 0.94, Estim Creat Clear Calc 66.38, Est GFR (MDRD) Af Amer 77, Est GFR (MDRD) Non-Af 64, BUN/Creatinine Ratio 23.4 H, Glucose 193 H, Calcium 9.0, Total Bilirubin 1.10 H, AST 13 L, ALT 12 L, Alkaline Phosphatase 83, C-React Prot Ext Range 102.00 H, Total Protein 6.9, Albumin 2.5 L, Globulin 4.4 H, Albumin/Globulin Ratio 0.6 L 12/08/23 08:00: POC Glucose 186 H Radiography Diagnostic Testing: Radiology Impression Foot X-Ray 12/07/23 15:07 IMPRESSION: Diffuse soft tissue swelling. Plantar spur. Electronically Signed: William Hines MD at 15:23 EDT , Physical Exam Narrative General: Alert, Oriented x3, Cooperative, No apparent distress HEENT: Atraumatic, PERRLA, EOMI, Normocephalic Oral: Moist Mucosa Neck: Supple, No JVD Lungs: Clear to auscultation, Normal air movement, No rhonchi, No wheeze, No rales Cardiovascular: Regular rate, Regular Rhythm, Normal S1, Normal S2, No murmurs Abdomen: Soft, Non Tender, Non-Distended, No Hepato-splenomegaly Extremities: No edema, Capillary Refill Less than 3 Seconds Skin: Redness and streaking going up her right underwood that appears to be improving, foot wound is dressed Musculoskeletal: No Tenderness to Palpation of Joints or Extremities Neurological: No focal neurological deficits, Motor Exam 5/5 strength throughout, Sensory exam intact to light touch and pain Psych/Mental Status: Normal Affect, Appropriate Assessment & Plan Assessment/Plan (1) Diabetic infection of right foot: PLAN: Plan 1. Right-sided diabetic foot wound with cellulitis/DM2 ? Continue with antibiotics ? Inflammatory markers are elevated ? Continue with sign scale insulin ? Accu-Cheks ACHS ? MRI is pending may need to get infectious disease on board if there is osteo ? Appreciate podiatry's assistance 2. Essential HTN/HLD/CAD status post CABG/chronic diastolic CHF/history of CVA/A-fib ? Blood pressures are stable/can resume her home medications ? Will monitor make adjustments as necessary ? Echocardiogram in March 2023 with normal EF and stage II diastolic dysfunction ? Will stop her Eliquis this morning in case podiatry would like to do any surgical intervention 3. Hypothyroidism ? Stable ? Continue with Synthroid DVT: Lovenox Charges/Coding Visit Charges Inpatient E&M: 01495 Subs Hosp L2
--- NOTE | 2023-12-08 11:30 | CASEMGMT ---
JONH SAMS Assessment Face to Face with patient for initial transition planning/care coordination assessment. JONH SAMS introduced self and role at [facility], pt voices understanding. Pt is A&Ox4 and is resting comfortably in the chair and is calm. Care providers, pharmacy, and demographics verified. Admitting dx: Rt Foot Cellulitis LACE Strata: 2 PCP: Fara Bernal Specialists: Francheska (Cardio), Atilio (Podiatry) Preferred Pharmacy: [facility] Insurance: [facility] [employer] Prescription Benefit: Yes LNOK: Kwabena Sawyer (H), Anna Sawyer (RADHA) Living Arrangements: Pt lives with her , daughter (20), and son (26) in a bi-level home with a flat entrance. Pt states there are around 7 steps to get to the top floor with HR and about 4-5 steps to get to the bottom level with a HR. Denies issues. ADLs/IADLs: States Ind Transportation: Pt states that she can drive but does not have a vehicle. Pt states that her son has a truck and can drive but she can not get into it. Pt states that her daughter drives her sometimes. Pt states that she uses the Hospital van as well as [employer] for transportation. DME: Pt states that she has a continuous BGM and has enough supplies at home for this. Pt also has a glucometer with sufficient supplies as a backup. Shower is equipped with a GB. Denies all other DME uses or needs. HHC/SNF: Pt states that she had cardiac surgery x 10 years ago and went to a [facility] in [place] afterwards for about one week. Pt denies history of HHC. Wound: Pt states that she has been following with Dr. Trimble at the [facility] and states that she plans to go to the [facility] 5x/week after DC from [facility]. Pt states that she tends to this herself at home. Pt?s goal: Home Plan: Home with the continuation of the [facility]. Pt 6 click score is 13. PT/OT has been ordered and is pending. However, at this time, the the denies the need for HHC, OP therapy, CCN, or Pt Link. Follow Podiatry consult. Follow therapy recommendations. Report given to GONSALO BORJA CM. Bret Sawyer RN, CM
[2023-12-08 12:21] LABS: Bedside Glucose 179 mg/dL (74-106)
[2023-12-08 14:00] VITALS: BP 131/71; PULSE 77; RESP 16; TEMP 36.6; O2SAT 99
--- NOTE | 2023-12-08 15:27 | CASEMGMT ---
Discharge Planning A list of SNF providers including quality and resource use data and consistent with the patient's preferred geographic region, medical needs, and insurance network was created in [employer] Guide.? This list was provided to the Gail Monae Discharge Planning Asst.
--- NOTE | 2023-12-08 15:34 | CASEMGMT ---
Social Work- SW met with pt discuss preferences at d/c, as therapy reported concerns with safety at home. Pt reports that she does not want a SNF list, as she previously received therapy at [facility] and would want to return. Pt is slated to have a procedure over the weekend, so no referral to be made until following procedure and therapy. KRYSTINA Severino
[2023-12-08 16:44] LABS: Bedside Glucose 157 mg/dL (74-106)
[2023-12-08] MEDS: VANCOMYCIN 200 MG IV (18:00)
--- NOTE | 2023-12-08 19:45 | MRI_ITS ---
STUDY: MRI RIGHT FOREFOOT WITHOUT CONTRAST REASON FOR EXAM: Female, 63 years old. Ulcer sub 5th metatarsal r/o Osteomyelitis, DIABETIC TECHNIQUE: Standardized fat and water weighted pulse sequences were obtained in all 3 orthogonal planes. COMPARISON: X-ray December 07, 2023 FINDINGS: There is degenerative arthrosis of the metatarsophalangeal joint of the hallux with a hallux valgus deformity. Normal tibial and fibular sesamoids, with normal sesamoids-first metatarsal articulations. Normal interphalangeal joint of the hallux. Normal proximal and distal phalanges of the great toe. Normal medial and lateral heads of the flexor hallucis brevis tendons. Normal flexor and extensor hallucis longus tendons. Normal second through fourth metatarsophalangeal (MTP) joints. Normal interphalangeal joints of the second and third toes. Normal proximal, middle and distal phalanges of the second and third toes. There is symphalangism of the middle and distal phalanges of the fourth and fifth toes. There is mild joint space narrowing, spurring, and moderate joint effusion at the fifth MTP joint. There is marrow edema fifth metatarsal head and fifth proximal phalanx. Normal first through fourth intermetatarsal spaces. Normal flexor and extensor tendons of the second through fifth toes. There is moderate joint space narrowing and spurring of the tarsometatarsal articulations. There is diffuse atrophy of the intrinsic muscles of the forefoot consistent with a peripheral neuropathy. There is soft tissue swelling and focal skin defect in the plantar lateral fifth submetatarsal region. MRI/Lower Ext/No Jt/w/o IMPRESSION: Osteomyelitis of the fifth metatarsal head and proximal phalanx with probable septic joint at the fifth MTP joint. Arthritic change. Electronically Signed: Nick Becerril MD at 11:26 EDT Reading Location ID and State: [id number] / [place] , Service support ,
[2023-12-08 22:01] VITALS: BP 156/74; PULSE 78; RESP 16; TEMP 36.7; O2SAT 98
[2023-12-08 22:40] LABS: Bedside Glucose 191 mg/dL (74-106)
[2023-12-09 04:15] VITALS: BP 150/77; PULSE 79; RESP 16; TEMP 36.6; O2SAT 98
[2023-12-09] MEDS: Meropenem 1 GM in 0.9% Normal Saline (100mL MB+) 100 ML IV ×3 (05:23→22:28)
[2023-12-09] MEDS: Levothyroxine 25 MCG TABLET PO (05:24)
[2023-12-09] MEDS: Acetaminophen 500 MG Tablet 1000 MG PO ×3 (05:24→21:17)
[2023-12-09 06:00] VITALS: BMI 34.7
[2023-12-09 06:42] LABS: Absolute Lymphocyte Count 1.21 X10^3/uL (0.83-4.51); Absolute Neutrophil Count 5.9 X10^3/uL (2.0-7.7); Basophil# 0.03 X10^3/uL; Basophil% 0.4 % (0-1); Eosinophil# 0.31 X10^3/uL; Eosinophils% 3.8 % (0-5); Hematocrit 32.5 % (37-47); Hemoglobin 10.3 g/dL (12.0-15.0); Lymphocyte # 1.21 X10^3/ul (0.83-4.51); Mean Corp Hgb Conc 31.7 g/dL (32-36); Mean Corpuscular Hgb 27.7 pg (27.0-32.0); Mean Corpuscular Volume 87.4 fL (81-99); Mean Platelet Vol. 11.2 fl (6.2-12.0); Monocyte# 0.57 X10^3/uL; NRBC Flagged by Analyzer 0 % (0-5); Neutrophil # 5.94 X10^3/uL (2.7-7.7); Neutrophil % 73.4 % (47-70); Platelet Count 203 K/mm3 (150-450); RBC Distribution Width SD 48.1 fl (35.1-43.9); Red Blood Count 3.72 M/mm3 (4.2-5.4); White Blood Count 8.1 K/mm3 (4.4-11.0)
[2023-12-09 07:16] LABS: Anion Gap 4 (5-15); BUN 25 mg/dL (7-18); BUN/Creat Ratio 27.2 RATIO (10-20); Chloride 110 mmol/L (98-107); Creatinine, Serum 0.92 mg/dL (0.55-1.02); EST Glomerular Filtration Rate 65 mL/min (>60); Est Glom Filt Rate - Afr Amer 79 mL/min (>60); Estimated Creatinine Clearance 67.74 ml/min; Glucose 164 mg/dL (74-106); Potassium 3.6 mmol/L (3.5-5.1); Sodium Level 139 mmol/L (136-145); Vancomycin, Trough Level 19.2 ug/mL (5.0-15.0)
--- NOTE | 2023-12-09 07:32 | PN.HOSP_ITS ---
Reason for Visit Reason for Visit: Diagnoses Type 2 diabetes mellitus with diabetic polyneuropathy (12/07/23) Type 2 diabetes mellitus with foot ulcer (12/07/23) Type 2 diabetes mellitus with other skin complications (12/07/23) Peripheral vascular disease, unspecified (12/07/23) Cellulitis of right lower limb (12/07/23) Local infection of the skin and subcutaneous tissue, unspecified (12/07/23) Non-pressure chronic ulcer of other part of unspecified foot with unspecified severity (12/07/23) Non-pressure chronic 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 (12/07/23) Hallux valgus (acquired), right foot (12/07/23) Bunionette of right foot (12/07/23) Osteomyelitis, unspecified (12/07/23) 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 MRI obtained did demonstrate osteomyelitis of the fifth metatarsal head and proximal phalanx with probable septic joint at the fifth MTP joint. Objective Data Objective Data Vital Signs: Vital Signs Temp Pulse Resp BP Pulse Ox O2 Del Method 97.9 F 79 16 150/77 H 98 Room Air 12/09/23 04:15 12/09/23 04:15 12/09/23 04:15 12/09/23 04:15 12/09/23 04:15 12/09/23 04:15 Oxygen Delivery Method Room Air Weight: 91.6 kg Body Mass Index (BMI) 34.7 Intake & Output: Intake and Output for Last 24 Hours 12/07/23 12/08/23 12/09/23 23:59 23:59 23:59 Intake Total 830 / 830 1610.0 / 1610.0 120 / 120 Balance 830 / 830 1610.0 / 1610.0 120 / 120 Lab / Micro Data 12/09/23 06:30 12/09/23 06:30 Labs: Laboratory Results - last 24 hr 12/08/23 08:00: POC Glucose 186 H 12/08/23 12:00: POC Glucose 179 H 12/08/23 16:24: POC Glucose 157 H 12/08/23 22:00: POC Glucose 191 H 12/09/23 06:30: WBC 8.1, RBC 3.72 L, Hgb 10.3 L, Hct 32.5 L, MCV 87.4, MCH 27.7, MCHC 31.7 L, RDW Std Deviation 48.1 H, RDW Coeff of Dutch 15.0 H, Plt Count 203, MPV 11.2, Immature Gran % (Auto) 0.400, Neut % (Auto) 73.4 H, Lymph % (Auto) 15.0 L, [place] % (Auto) 7.0, Eos % (Auto) 3.8, Baso % (Auto) 0.4, Absolute Neuts (auto) 5.9, Absolute Lymphs (auto) 1.21, Nucleated RBC % 0, Sodium 139, Potassium 3.6, Chloride 110 H, Carbon Dioxide 25.0, Anion Gap 4 L, BUN 25 H, Creatinine 0.92, Estim Creat Clear Calc 67.74, Est GFR (MDRD) Af Amer 79, Est GFR (MDRD) Non-Af 65, BUN/Creatinine Ratio 27.2 H, Glucose 164 H, Calcium 9.0, V ancomycin Trough 19.2 H Radiography Diagnostic Testing: Radiology Impression Lower Extremity MRI 12/08/23 19:45 IMPRESSION: Osteomyelitis of the fifth metatarsal head and proximal phalanx with probable septic joint at the fifth MTP joint. Arthritic change. Electronically Signed: Nick Becerril MD at 11:26 EDT Reading Location ID and State: [address] [place] [address] , Service support , Physical Exam Narrative General: Alert, Oriented x3, Cooperative, No apparent distress HEENT: Atraumatic, PERRLA, EOMI, Normocephalic Oral: Moist Mucosa Neck: Supple, No JVD Lungs: Clear to auscultation, Normal air movement, No rhonchi, No wheeze, No rales Cardiovascular: Regular rate, Regular Rhythm, Normal S1, Normal S2, No murmurs Abdomen: Soft, Non Tender, Non-Distended, No Hepato-splenomegaly Extremities: No edema, Capillary Refill Less than 3 Seconds Skin: Redness and streaking going up her right underwood that appears to be improving, foot wound is dressed Musculoskeletal: No Tenderness to Palpation of Joints or Extremities Neurological: No focal neurological deficits, Motor Exam 5/5 strength throughout, Sensory exam intact to light touch and pain Psych/Mental Status: Normal Affect, Appropriate Assessment & Plan Assessment/Plan (1) Diabetic infection of right foot: PLAN: Plan Patient is a 63-year-old lady with history of diabetes mellitus type 2 admitted with right fourth wound with cellulitis. MRI obtained did demonstrate osteomyelitis of the fifth metatarsal head and proximal phalanx with probable septic joint at the fifth MTP joint. 1. Diabetic foot infection ? Patient presented with right foot wound with cellulitis imaging studies demonstrated steomyelitis of the fifth metatarsal head and proximal phalanx with probable septic joint at the fifth MTP joint.. Patient started on broad- spectrum antibiotic therapy consult placed to podiatry plan is for patient to undergo surgical intervention by podiatry on 12/11/2023 2. Peripheral vascular disease next Doppler/PVR waveforms obtained did show distal SFA/popliteal and infrapopliteal disease. Consult placed Dr. Figueroa, vascular surgeon 3. 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 Coronary artery disease ? Status post CABG patient is on guideline directed medical therapy 5. Paroxysmal atrial fibrillation ? Rate controlled on systemic anticoagulation with apixaban 6. Diabetes mellitus type II -patient's oral hypoglycemics held. Placed on long acting insulin, Accu-Cheks a.c. and at bedtime and covered with sliding scale insulin 7. Hypertension ? Blood pressure controlled, home medications continued with dose adjustment as needed 8. Dyslipidemia ?Patient is on statin therapy, continued at home dose 9. Class I obesity with BMI of 34.7 ? Complicating care weight loss advised 10. Hypothyroidism ? Patient is on levothyroxine home dose continued 11. DVT prophylaxis ? Enoxaparin Time spent in the patient's overall evaluation,decision-making process, review of diagnostic data, adjustment of management, discussion with other providers, nursing nursing and ancillary staff involved in patient's care documentation, 38 Minutes Charges/Coding Visit Charges Inpatient E&M: 02885 Subs Hosp L2
--- NOTE | 2023-12-09 07:33 | PN.HOSP_ITS ---
Reason for Visit Reason for Visit: Diagnoses Type 2 diabetes mellitus with diabetic polyneuropathy (12/07/23) Type 2 diabetes mellitus with foot ulcer (12/07/23) Type 2 diabetes mellitus with other skin complications (12/07/23) Peripheral vascular disease, unspecified (12/07/23) Cellulitis of right lower limb (12/07/23) Local infection of the skin and subcutaneous tissue, unspecified (12/07/23) Non-pressure chronic ulcer of other part of unspecified foot with unspecified severity (12/07/23) Non-pressure chronic 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 (12/07/23) Hallux valgus (acquired), right foot (12/07/23) Bunionette of right foot (12/07/23) Osteomyelitis, unspecified (12/07/23) 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 (12/07/23) Objective Data Objective Data Vital Signs: Vital Signs Temp Pulse Resp BP Pulse Ox O2 Del Method 97.9 F 79 16 150/77 H 98 Room Air 12/09/23 04:15 12/09/23 04:15 12/09/23 04:15 12/09/23 04:15 12/09/23 04:15 12/09/23 04:15 Oxygen Delivery Method Room Air Weight: 91.6 kg Body Mass Index (BMI) 34.7 Intake & Output: Intake and Output for Last 24 Hours 12/07/23 12/08/23 12/09/23 23:59 23:59 23:59 Intake Total 830 / 830 1610.0 / 1610.0 120 / 120 Balance 830 / 830 1610.0 / 1610.0 120 / 120 Lab / Micro Data 12/09/23 06:30 12/09/23 06:30 Labs: Laboratory Results - last 24 hr 12/08/23 08:00: POC Glucose 186 H 12/08/23 12:00: POC Glucose 179 H 12/08/23 16:24: POC Glucose 157 H 12/08/23 22:00: POC Glucose 191 H 12/09/23 06:30: WBC 8.1, RBC 3.72 L, Hgb 10.3 L, Hct 32.5 L, MCV 87.4, MCH 27.7, MCHC 31.7 L, RDW Std Deviation 48.1 H, RDW Coeff of Dutch 15.0 H, Plt Count 203, MPV 11.2, Immature Gran % (Auto) 0.400, Neut % (Auto) 73.4 H, Lymph % (Auto) 15.0 L, Reagan % (Auto) 7.0, Eos % (Auto) 3.8, Baso % (Auto) 0.4, Absolute Neuts (auto) 5.9, Absolute Lymphs (auto) 1.21, Nucleated RBC % 0, Sodium 139, Potassium 3.6, Chloride 110 H, Carbon Dioxide 25.0, Anion Gap 4 L, BUN 25 H, Creatinine 0.92, Estim Creat Clear Calc 67.74, Est GFR (MDRD) Af Amer 79, Est GFR (MDRD) Non-Af 65, BUN/Creatinine Ratio 27.2 H, Glucose 164 H, Calcium 9.0, V ancomycin Trough 19.2 H Radiography Diagnostic Testing: Radiology Impression Lower Extremity MRI 12/08/23 19:45 IMPRESSION: Osteomyelitis of the fifth metatarsal head and proximal phalanx with probable septic joint at the fifth MTP joint. Arthritic change. Electronically Signed: Nick Becerril MD at 11:26 EDT ,
[2023-12-09 07:41] VITALS: PULSE 80
--- NOTE | 2023-12-09 08:20 | PCM.RX.CS ---
Consult Antibiotic Management Pharmacy has been consulted to manage selected antibiotic: Vancomycin Type of Intervention Type of Consult: Follow-up Labs Labs: Sodium 139 mmol/L (136-145) 12/09/23 06:30 Potassium 3.6 mmol/L (3.5-5.1) 12/09/23 06:30 Chloride 110 mmol/L (98-107) H 12/09/23 06:30 Carbon Dioxide 25.0 mmol/L (21.0-32.0) 12/09/23 06:30 Anion Gap 4 (5-15) L 12/09/23 06:30 BUN 25 mg/dL (7-18) H 12/09/23 06:30 Creatinine 0.92 mg/dL (0.55-1.02) 12/09/23 06:30 Est GFR (MDRD) Af Amer 79 mL/min (>60) 12/09/23 06:30 Est GFR (MDRD) Non-Af 65 mL/min (>60) 12/09/23 06:30 BUN/Creatinine Ratio 27.2 RATIO (10-20) H 12/09/23 06:30 Glucose 164 mg/dL (74-106) H 12/09/23 06:30 Vancomycin Trough 19.2 ug/mL (5.0-15.0) H 12/09/23 06:30 Goal Trough Goal Trough: 15-20 mcg/mL Pharmacy Plan for Drug Dosing Pharmacy Plan for Drug Dosing: VANCOMYCIN LEVEL RECEIVED Current Vancomycin Dose: 1000mg IV Q12hr Number of Doses Received: 3 Vancomycin Level: 19.2 Hours Since Last Dose: 12.5hr Renal Function: 0.92 Renal Function Trend: stable Lab/Micro: BCx pending Vancomycin Plan/Comments: Patient had a trough drawn which resulted in a value of 19.2 (goal 15-20). Patient is within therapeutic window, will continue current dosing regimen. Will recheck a trough in 2 days to assess dosing at that time. Pending Level: 12/11/23 @0630 Pharmacy Service will continue to monitor and adjust dosing as required.
[2023-12-09] MEDS: Insulin Lispro 100 UNIT/ML INSULN.PEN SC ×3 (08:37→21:16)
[2023-12-09] MEDS: Insulin Lispro 100 UNIT/ML INSULN.PEN 10 UNIT SC ×3 (08:38→17:28)
[2023-12-09] MEDS: 0.9% Saline Lock 10 ML Syringe IV ×2 (09:23→21:09)
[2023-12-09] MEDS: Insulin Glargine-YFGN 100 UNIT/ML Pen 40 UNIT SC (09:24)
[2023-12-09] MEDS: Enoxaparin 40 MG/0.4 ML Syringe SC (09:25)
[2023-12-09] MEDS: amLODIPine 10 MG Tablet PO (09:25)
[2023-12-09 09:26] VITALS: BP 165/76; PULSE 76
[2023-12-09] MEDS: Metoprolol(XL)Succ 100 MG Tablet PO (09:26)
[2023-12-09] MEDS: Losartan Potassium 50 MG Tablet PO (09:26)
[2023-12-09] MEDS: Atorvastatin Calcium 40 MG Tablet PO (09:26)
[2023-12-09 09:29] VITALS: BP 165/76; PULSE 76; RESP 18; TEMP 36.8; O2SAT 96
--- NOTE | 2023-12-09 09:32 | CASEMGMT ---
Addendum entered by Sabrina Noel 12/09/23 11:31: Social Work Initial referral made to [facility] via [facility]. BRIANDA Gaffney Original Note: Social Work SW met w/pt in room in regard to discharge plan. Pt confirmed she is having surgery on 12/10, states she accidentally ate yesterday so the surgery is now Monday. She is having a difficult time waiting, states the surgery is not until the afternoon. SW asked if any family will come to sit w/her, she states she has 5 children, one in [place], one in [place], one in [place] and one overseas, states she cannot remember where. She states has a son who may come in to see her today and bring her some things. SW states has 11 grandchildren, but they are all far away. She does not think any family will come in to see her other than her son possibly. Support offered to pt. We spoke about discharge plan, pt is agreeable to referral to [facility], states that she lives in a bilevel home and will need help. Pt states went to [facility] once in the past and had therapy there. SW explained will start the referral process today, SW will follow up on Monday. BRIANDA Gaffney
[2023-12-09] MEDS: VANCOMYCIN 200 MG IV ×2 (11:10→21:09)
[2023-12-09] MEDS: Nystatin Powder 15gm Bottle 1 APPLIC TOPICAL ×2 (11:18→21:17)
[2023-12-09 11:34] LABS: Bedside Glucose 140 mg/dL (74-106)
[2023-12-09] MEDS: DAKIN'S SOL HALF STRENGTH (=0.25%) TOPICAL (14:52)
[2023-12-09 15:03] VITALS: BP 126/65; PULSE 73; RESP 18; TEMP 37.6; O2SAT 98
[2023-12-09 16:18] LABS: Bedside Glucose 200 mg/dL (74-106)
[2023-12-09 20:00] VITALS: BP 146/76; PULSE 82; RESP 14; TEMP 36.7; O2SAT 98
[2023-12-09 21:41] LABS: Bedside Glucose 155 mg/dL (74-106)
[2023-12-09 21:51] LABS: Bedside Glucose 151 mg/dL (74-106)
[2023-12-10] MEDS: VANCOMYCIN 200 MG IV ×2 (05:57→18:39)
[2023-12-10] MEDS: Levothyroxine 25 MCG TABLET PO (05:59)
[2023-12-10 06:00] VITALS: BP 158/90; PULSE 77; RESP 14; TEMP 36.7; O2SAT 95
[2023-12-10] MEDS: Acetaminophen 500 MG Tablet 1000 MG PO ×3 (06:00→21:23)
[2023-12-10 06:28] LABS: Bedside Glucose 138 mg/dL (74-106)
--- NOTE | 2023-12-10 07:19 | PCM.PN.HOSP ---
Reason for Visit Reason for Visit: Diagnoses Type 2 diabetes mellitus with diabetic polyneuropathy (12/07/23) Type 2 diabetes mellitus with foot ulcer (12/07/23) Type 2 diabetes mellitus with other skin complications (12/07/23) Peripheral vascular disease, unspecified (12/07/23) Cellulitis of right lower limb (12/07/23) Local infection of the skin and subcutaneous tissue, unspecified (12/07/23) Non-pressure chronic ulcer of other part of unspecified foot with unspecified severity (12/07/23) Non-pressure chronic 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 (12/07/23) Hallux valgus (acquired), right foot (12/07/23) Bunionette of right foot (12/07/23) Osteomyelitis, unspecified (12/07/23) 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 Patient scheduled to undergo wound debridement on 12/11/2023 Objective Data Objective Data Vital Signs: Vital Signs Temp Pulse Resp BP Pulse Ox O2 Del Method 98.0 F 77 14 158/90 H 95 Room Air 12/10/23 06:00 12/10/23 06:00 12/10/23 06:00 12/10/23 06:00 12/10/23 06:00 12/10/23 06:00 Oxygen Delivery Method Room Air Weight: 91.6 kg Body Mass Index (BMI) 34.7 Intake & Output: Intake and Output for Last 24 Hours 12/08/23 12/09/23 12/10/23 23:59 23:59 23:59 Intake Total 1610.0 / 1610.0 760 / 760 120 / 120 Output Total 650 / 650 Balance 1610.0 / 1610.0 760 / 410 -530 / -530 Lab / Micro Data 12/10/23 07:29 12/10/23 07:29 Labs: Laboratory Results - last 24 hr 12/09/23 07:40: POC Glucose 155 H 12/09/23 11:16: POC Glucose 140 H 12/09/23 15:59: POC Glucose 200 H 12/09/23 21:16: POC Glucose 151 H 12/10/23 06:05: POC Glucose 138 H Physical Exam Narrative GENERAL: cooperative HEENT: Atraumatic; normocephalic EYES; Anicteric, Normal Conjunctiva NECK; supple, normal thyroid, RESPIRATORY: Diminished to auscultation CARDIOVASCULAR: Regular S1 S2, GI: soft, normoactive bowel sounds, : No Renal angle tenderness; EXTREMITIES: Right foot in dressing MUSCULOSKELETAL: no muscle wasting NEURO: Awake; no lateralizing signs. SKIN: No Rash PSYCH; Flat affect Assessment & Plan Assessment/Plan (1) Diabetic infection of right foot: PLAN: Plan Patient is a 63-year-old lady with history of diabetes mellitus type 2 admitted with right fourth wound with cellulitis. MRI obtained did demonstrate osteomyelitis of the fifth metatarsal head and proximal phalanx with probable septic joint at the fifth MTP joint. 1. Diabetic foot infection ? Patient presented with right foot wound with cellulitis imaging studies demonstrated steomyelitis of the fifth metatarsal head and proximal phalanx with probable septic joint at the fifth MTP joint.. Patient started on broad-spectrum antibiotic therapy consult placed to podiatry plan is for patient to undergo surgical intervention by podiatry on 12/11/2023 ? 12/10/2023; pain remains controlled. Patient surgical intervention scheduled for 12/11/2023 2. Peripheral vascular disease next Doppler/PVR waveforms obtained did show distal SFA/popliteal and infrapopliteal disease. Consult placed Dr. Figueroa, vascular surgeon 3. 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 Coronary artery disease ? Status post CABG patient is on guideline directed medical therapy 5. Paroxysmal atrial fibrillation ? Rate controlled on systemic anticoagulation with apixaban 6. Diabetes mellitus type II -patient's oral hypoglycemics held. Placed on long acting insulin, Accu-Cheks a.c. and at bedtime and covered with sliding scale insulin 7. Hypertension ? Blood pressure controlled, home medications continued with dose adjustment as needed 8. Dyslipidemia ?Patient is on statin therapy, continued at home dose 9. Class I obesity with BMI of 34.7 ? Complicating care weight loss advised 10. Hypothyroidism ? Patient is on levothyroxine home dose continued 11. DVT prophylaxis ? Enoxaparin Time spent in the patient's overall evaluation,decision-making process, review of diagnostic data, adjustment of management, discussion with other providers, nursing nursing and ancillary staff involved in patient's care documentation, 36 Minutes Charges/Coding Visit Charges Inpatient E&M: 16727 Subs Hosp L2
[2023-12-10] MEDS: Meropenem 1 GM in 0.9% Normal Saline (100mL MB+) 100 ML IV ×3 (07:23→21:21)
[2023-12-10 07:41] LABS: Hematocrit 32.9 % (37-47); Hemoglobin 10.5 g/dL (12.0-15.0); Mean Corp Hgb Conc 31.9 g/dL (32-36); Mean Corpuscular Hgb 28.1 pg (27.0-32.0); Mean Platelet Vol. 10.9 fl (6.2-12.0); Platelet Count 205 K/mm3 (150-450); RBC Distribution Width SD 48.2 fl (35.1-43.9); Red Blood Count 3.74 M/mm3 (4.2-5.4); White Blood Count 8.1 K/mm3 (4.4-11.0)
[2023-12-10 08:14] LABS: ALB/GLOB Ratio 0.6 RATIO (0.9-2.4); AST(SGOT) 14 U/L (15-37); Alanine Aminotransfer ALT/SGPT 13 U/L (13-56); Albumin, Serum 2.3 g/dL (3.2-5.0); Alkaline Phosphatase 67 U/L (45-117); Anion Gap 4 (5-15); BUN 24 mg/dL (7-18); Chloride 113 mmol/L (98-107); EST Glomerular Filtration Rate 77 mL/min (>60); Est Glom Filt Rate - Afr Amer 93 mL/min (>60); Globulin 4.1 g/dL (2.2-4.2); Glucose 159 mg/dL (74-106); Magnesium 1.8 mg/dL (1.6-2.6); Phosphorus 2.9 mg/dL (2.5-4.9); Potassium 3.8 mmol/L (3.5-5.1); Protein, Total 6.4 g/dL (6.4-8.2); Sodium Level 141 mmol/L (136-145)
[2023-12-10 08:34] VITALS: BP 128/68; PULSE 77; RESP 16; TEMP 36.6; O2SAT 99
[2023-12-10] MEDS: Losartan Potassium 50 MG Tablet PO (08:37)
[2023-12-10] MEDS: Insulin Lispro 100 UNIT/ML INSULN.PEN 10 UNIT SC ×3 (08:37→16:53)
[2023-12-10 08:38] VITALS: BP 128/68; PULSE 77
[2023-12-10] MEDS: Metoprolol(XL)Succ 100 MG Tablet PO (08:38)
[2023-12-10] MEDS: amLODIPine 10 MG Tablet PO (08:39)
[2023-12-10] MEDS: DAKIN'S SOL HALF STRENGTH (=0.25%) TOPICAL (10:58)
[2023-12-10] MEDS: Atorvastatin Calcium 40 MG Tablet PO (10:59)
[2023-12-10] MEDS: Nystatin Powder 15gm Bottle 1 APPLIC TOPICAL ×2 (10:59→21:22)
[2023-12-10] MEDS: Enoxaparin 40 MG/0.4 ML Syringe SC (10:59)
[2023-12-10] MEDS: Insulin Glargine-YFGN 100 UNIT/ML Pen 40 UNIT SC (11:04)
[2023-12-10 11:26] LABS: Bedside Glucose 165 mg/dL (74-106)
[2023-12-10] MEDS: Insulin Lispro 100 UNIT/ML INSULN.PEN SC (13:21)
[2023-12-10] MEDS: 0.9% Saline Lock 10 ML Syringe IV (13:50)
[2023-12-10 16:58] LABS: Bedside Glucose 141 mg/dL (74-106)
[2023-12-10 17:10] VITALS: BP 114/81; PULSE 79; RESP 18; TEMP 36.6; O2SAT 98
[2023-12-10 21:07] VITALS: BP 126/96; PULSE 75; RESP 16; TEMP 37; O2SAT 98
[2023-12-10 21:53] LABS: Bedside Glucose 119 mg/dL (74-106)
[2023-12-11] VITALS (15 sets, daily range): BP systolic 129–166; BP diastolic 67–91; PULSE 67–78; RESP 16–18; TEMP 36.3–36.9; O2SAT 92–98; BMI 36.3
[2023-12-11] MEDS: Acetaminophen 500 MG Tablet 1000 MG PO ×3 (05:51→22:06)
[2023-12-11] MEDS: Meropenem 1 GM in 0.9% Normal Saline (100mL MB+) 100 ML IV (05:51)
[2023-12-11] MEDS: Levothyroxine 25 MCG TABLET PO (05:51)
[2023-12-11 06:43] LABS: Bedside Glucose 111 mg/dL (74-106)
[2023-12-11 06:43] LABS: Absolute Lymphocyte Count 2.31 X10^3/uL (0.83-4.51); Absolute Neutrophil Count 4.5 X10^3/uL (2.0-7.7); Basophil# 0.04 X10^3/uL; Basophil% 0.5 % (0-1); Eosinophil# 0.68 X10^3/uL; Eosinophils% 8.1 % (0-5); Hematocrit 32.5 % (37-47); Hemoglobin 10.3 g/dL (12.0-15.0); Lymphocyte # 2.31 X10^3/ul (0.83-4.51); Lymphocyte % 27.6 % (19-41); Mean Corp Hgb Conc 31.7 g/dL (32-36); Mean Corpuscular Hgb 27.7 pg (27.0-32.0); Mean Corpuscular Volume 87.4 fL (81-99); Mean Platelet Vol. 10.6 fl (6.2-12.0); Monocyte# 0.75 X10^3/uL; NRBC Flagged by Analyzer 0 % (0-5); Neutrophil % 53.8 % (47-70); Platelet Count 213 K/mm3 (150-450); RBC Distribution Width SD 48.2 fl (35.1-43.9); Red Blood Count 3.72 M/mm3 (4.2-5.4); White Blood Count 8.4 K/mm3 (4.4-11.0)
--- NOTE | 2023-12-11 07:10 | PN.HOSP_ITS ---
Reason for Visit Reason for Visit: Diagnoses Type 2 diabetes mellitus with diabetic polyneuropathy (12/07/23) Type 2 diabetes mellitus with foot ulcer (12/07/23) Type 2 diabetes mellitus with other skin complications (12/07/23) Peripheral vascular disease, unspecified (12/07/23) Cellulitis of right lower limb (12/07/23) Local infection of the skin and subcutaneous tissue, unspecified (12/07/23) Non-pressure chronic ulcer of other part of unspecified foot with unspecified severity (12/07/23) Non-pressure chronic 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 (12/07/23) Hallux valgus (acquired), right foot (12/07/23) Bunionette of right foot (12/07/23) Osteomyelitis, unspecified (12/07/23) 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 Trimble this a.m. Objective Data Objective Data Vital Signs: Vital Signs Temp Pulse Resp BP Pulse Ox O2 Del Method 98.1 F 72 16 166/88 H 96 Room Air 12/11/23 05:54 12/11/23 05:54 12/11/23 05:54 12/11/23 05:54 12/11/23 05:54 12/11/23 05:54 Oxygen Delivery Method Room Air Weight: 96.2 kg Body Mass Index (BMI) 36.3 Intake & Output: Intake and Output for Last 24 Hours 12/09/23 12/10/23 12/11/23 23:59 23:59 23:59 Intake Total 760 / 760 1660 / 1660 120 / 120 Output Total 1000 / 1000 Balance 760 / 410 660 / 660 120 / 120 Lab / Micro Data 12/11/23 06:26 12/11/23 06:26 Labs: Laboratory Results - last 24 hr 12/10/23 07:29: WBC 8.1, RBC 3.74 L, Hgb 10.5 L, Hct 32.9 L, MCV 88.0, MCH 28.1, MCHC 31.9 L, RDW Std Deviation 48.2 H, RDW Coeff of Dutch 15.0 H, Plt Count 205, MPV 10.9, Sodium 141, Potassium 3.8, Chloride 113 H, Carbon Dioxide 24.0, Anion Gap 4 L, BUN 24 H, Creatinine 0.80, Estim Creat Clear Calc 77.90, Est GFR (MDRD) Af Amer 93, Est GFR (MDRD) Non-Af 77, BUN/Creatinine Ratio 30.0 H, Glucose 159 H , Calcium 9.0, Phosphorus 2.9, Magnesium 1.8, Total Bilirubin 0.60, AST 14 L, ALT 13, Alkaline Phosphatase 67, Total Protein 6.4, Albumin 2.3 L, Globulin 4.1, Albumin/Globulin Ratio 0.6 L 12/10/23 11:03: POC Glucose 165 H 12/10/23 16:39: POC Glucose 141 H 12/10/23 21:16: POC Glucose 119 H 12/11/23 06:25: POC Glucose 111 H 12/11/23 06:26: WBC 8.4, RBC 3.72 L, Hgb 10.3 L, Hct 32.5 L, MCV 87.4, MCH 27.7, MCHC 31.7 L, RDW Std Deviation 48.2 H, RDW Coeff of Dutch 15.0 H, Plt Count 213, MPV 10.6, Immature Gran % (Auto) 1.000 H, Neut % (Auto) 53.8, Lymph % (Auto) 27.6, Dickens % (Auto) 9.0, Eos % (Auto) 8.1 H, Baso % (Auto) 0.5, Absolute Neuts (auto) 4.5, Absolute Lymphs (auto) 2.31, Nucleated RBC % 0 Micro: Microbiology 12/07/23 17:56 Blood Culture (Wb) - Anticubital Right Blood Culture - Preliminary No growth in 48 hours. Physical Exam Narrative GENERAL: cooperative HEENT: Atraumatic; normocephalic EYES; Anicteric, Normal Conjunctiva NECK; supple, normal thyroid, RESPIRATORY: Diminished to auscultation CARDIOVASCULAR: Regular S1 S2, GI: soft, normoactive bowel sounds, : No Renal angle tenderness; EXTREMITIES: Right foot in dressing MUSCULOSKELETAL: no muscle wasting NEURO: Awake; no lateralizing signs. SKIN: No Rash PSYCH; Flat affect Assessment & Plan Assessment/Plan (1) Diabetic infection of right foot: PLAN: Plan Patient is a 63-year-old lady with history of diabetes mellitus type 2 admitted with right fourth wound with cellulitis. MRI obtained did demonstrate osteomyelitis of the fifth metatarsal head and proximal phalanx with probable septic joint at the fifth MTP joint. 1. Diabetic foot infection ? Patient presented with right foot wound with cellulitis imaging studies demonstrated steomyelitis of the fifth metatarsal head and proximal phalanx with probable septic joint at the fifth MTP joint.. Patient started on broad- spectrum antibiotic therapy consult placed to podiatry plan is for patient to undergo surgical intervention by podiatry on 12/11/2023 ? 12/10/2023; pain remains controlled. Patient surgical intervention scheduled for 12/11/2023 ? 12/11/2023; patient scheduled to undergo surgical intervention 2. Peripheral vascular disease next Doppler/PVR waveforms obtained did show distal SFA/popliteal and infrapopliteal disease. Consult placed Dr. Figueroa, vascular surgeon 3. 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 Coronary artery disease ? Status post CABG patient is on guideline directed medical therapy 5. Paroxysmal atrial fibrillation ? Rate controlled on systemic anticoagulation with apixaban 6. Diabetes mellitus type II -patient's oral hypoglycemics held. Placed on long acting insulin, Accu-Cheks a.c. and at bedtime and covered with sliding scale insulin 7. Hypertension ? Blood pressure controlled, home medications continued with dose adjustment as needed 8. Dyslipidemia ?Patient is on statin therapy, continued at home dose 9. Class I obesity with BMI of 34.7 ? Complicating care weight loss advised 10. Hypothyroidism ? Patient is on levothyroxine home dose continued 11. DVT prophylaxis ? Enoxaparin Time spent in the patient's overall evaluation,decision-making process, review of diagnostic data, adjustment of management, discussion with other providers, nursing nursing and ancillary staff involved in patient's care documentation, 36 Minutes Charges/Coding Visit Charges Inpatient E&M: 39025 Subs Hosp L2
[2023-12-11] MEDS: Losartan Potassium 50 MG Tablet PO (07:26)
[2023-12-11] MEDS: amLODIPine 10 MG Tablet PO (07:26)
[2023-12-11] MEDS: Atorvastatin Calcium 40 MG Tablet PO (07:27)
[2023-12-11] MEDS: Metoprolol(XL)Succ 100 MG Tablet PO (07:27)
[2023-12-11] MEDS: Nystatin Powder 15gm Bottle 1 APPLIC TOPICAL ×2 (07:27→22:07)
[2023-12-11 07:30] LABS: Anion Gap 6 (5-15); BUN 19 mg/dL (7-18); BUN/Creat Ratio 26.9 RATIO (10-20); Calcium,Total 8.8 mg/dL (8.5-10.1); Chloride 114 mmol/L (98-107); Creatinine, Serum 0.71 mg/dL (0.55-1.02); EST Glomerular Filtration Rate 88 mL/min (>60); Est Glom Filt Rate - Afr Amer 107 mL/min (>60); Glucose 119 mg/dL (74-106); Potassium 3.8 mmol/L (3.5-5.1); Sodium Level 143 mmol/L (136-145); Vancomycin, Trough Level 23.6 ug/mL (5.0-15.0)
--- NOTE | 2023-12-11 07:40 | PCM.RX.CS ---
Consult Antibiotic Management Pharmacy has been consulted to manage selected antibiotic: Vancomycin Type of Intervention Type of Consult: Follow-up Labs Labs: Sodium 143 mmol/L (136-145) 12/11/23 06:26 Potassium 3.8 mmol/L (3.5-5.1) 12/11/23 06:26 Chloride 114 mmol/L (98-107) H 12/11/23 06:26 Carbon Dioxide 23.0 mmol/L (21.0-32.0) 12/11/23 06:26 Anion Gap 6 (5-15) 12/11/23 06:26 BUN 19 mg/dL (7-18) H 12/11/23 06:26 Creatinine 0.71 mg/dL (0.55-1.02) 12/11/23 06:26 Est GFR (MDRD) Af Amer 107 mL/min (>60) 12/11/23 06:26 Est GFR (MDRD) Non-Af 88 mL/min (>60) 12/11/23 06:26 BUN/Creatinine Ratio 26.9 RATIO (10-20) H 12/11/23 06:26 Glucose 119 mg/dL (74-106) H 12/11/23 06:26 Vancomycin Trough 23.6 ug/mL (5.0-15.0) H 12/11/23 06:26 Microbiology Microbiology: Microbiology 12/07/23 17:56 Blood Culture (Wb) - Anticubital Right Blood Culture - Preliminary No growth in 48 hours. Pharmacy Plan for Drug Dosing Pharmacy Plan for Drug Dosing: VANCOMYCIN LEVEL RECEIVED Current Vancomycin Dose: 1000MG Q12 Number of Doses Received: 7 Vancomycin Level: 23.6 MG/DL Hours Since Last Dose: 12 Renal Function: SCr 0.71 mg/dl, crcl 90.1 ml/min Renal Function Trend: stable Lab/Micro: blood cx - no growth Vancomycin Plan/Comments: 12 hour trough is supratherapeutic (goal 15-20). Will hold further dosing and get a random level in 12 hours. Pending Level: 12/11/23 @ 1830 Pharmacy Service will continue to monitor and adjust dosing as required.
--- NOTE | 2023-12-11 07:45 | PN_ITS ---
Subjective Subjective Patient seen early this a.m resting in bed. States that her discomfort is improving. Understands that she is currently n.p.o. and is awaiting surgical intervention this afternoon for partial fifth ray amputation of the right foot. Understanding of her status was verbally confirmed. Objective Data Objective Data Vital Signs: Vital Signs Temp Pulse Resp BP Pulse Ox O2 Del Method 98.1 F 76 16 166/88 H 96 Room Air 12/11/23 05:54 12/11/23 07:27 12/11/23 05:54 12/11/23 05:54 12/11/23 05:54 12/11/23 05:54 Oxygen Delivery Method Room Air Weight: 96.2 kg Body Mass Index (BMI) 36.3 Intake & Output: Intake and Output for Last 24 Hours 12/09/23 12/10/23 12/11/23 23:59 23:59 23:59 Intake Total 760 / 760 1660 / 1660 120 / 120 Output Total 1000 / 1000 Balance 760 / 410 660 / 660 120 / 120 Lab / Micro Data 12/11/23 06:26 12/11/23 06:26 Labs: Laboratory Results - last 24 hr 12/10/23 07:29: Sodium 141, Potassium 3.8, Chloride 113 H, Carbon Dioxide 24.0, Anion Gap 4 L, BUN 24 H, Creatinine 0.80, Estim Creat Clear Calc 77.90, Est GFR (MDRD) Af Amer 93, Est GFR (MDRD) Non-Af 77, BUN/Creatinine Ratio 30.0 H, G lucose 159 H, Calcium 9.0, Phosphorus 2.9, Magnesium 1.8, Total Bilirubin 0.60, AST 14 L, ALT 13, Alkaline Phosphatase 67, Total Protein 6.4, Albumin 2.3 L, Globulin 4.1, Albumin/Globulin Ratio 0.6 L 12/10/23 11:03: POC Glucose 165 H 12/10/23 16:39: POC Glucose 141 H 12/10/23 21:16: POC Glucose 119 H 12/11/23 06:25: POC Glucose 111 H 12/11/23 06:26: WBC 8.4, RBC 3.72 L, Hgb 10.3 L, Hct 32.5 L, MCV 87.4, MCH 27.7, MCHC 31.7 L, RDW Std Deviation 48.2 H, RDW Coeff of Dutch 15.0 H, Plt Count 213, MPV 10.6, Immature Gran % (Auto) 1.000 H, Neut % (Auto) 53.8, Lymph % (Auto) 27.6, [place] % (Auto) 9.0, Eos % (Auto) 8.1 H, Baso % (Auto) 0.5, Absolute Neuts (auto) 4.5, Absolute Lymphs (auto) 2.31, Nucleated RBC % 0, Sodium 143, Potassium 3.8, Chloride 114 H, Carbon Dioxide 23.0, Anion Gap 6, BUN 19 H, Creatinine 0.71, Estim Creat Clear Calc 90.10, Est GFR (MDRD) Af Amer 107, Est GFR (MDRD) Non-Af 88, BUN/Creatinine Ratio 26.9 H, Glucose 119 H, Calcium 8.8, V ancomycin Trough 23.6 H Micro: Microbiology 12/07/23 17:56 Blood Culture (Wb) - Anticubital Right Blood Culture - Preliminary No growth in 48 hours. Physical Exam Const alert, oriented x3 and no apparent distress General Appearance: cooperative Eyes General Eye: normal appearance of both eyes Neck General: normal visual inspection Lymph Lymphatic: no lymphedema noted Lymphatic Narrative: Acute cellulitis with lymphangitic streaking dorsal foot and anterior distal tibia Resp normal respiratory effort Cardio regular rate and regular rhythm Extremity no calf tenderness Extremity Narrative: Right lower extremity: Vascular: DP and PT pulses nonpalpable. Doppler demonstrates monophasic DP and PT. CFT is less than 5 seconds to the digits. Hair growth is absent to digits. Normal temperature gradient noted proximally with increased warmth secondary to erythema consistent with acute cellulitis to dorsal foot and fifth digit. Neurologic: Gross sensation is intact to the foot. Protective sensation is absent secondary to diabetic peripheral polyneuropathy. Musculoskeletal: Muscle strength 5 of 5 age-appropriate. There is an HAV deformity noted with lateral deviation of the hallux in addition to tailor bunion deformity with plantar foot ulceration of the fifth metatarsal head. No pain to palpation about the ulcerative site however fifth digit is painful secondary to acute cellulitis. There is decreased range of motion of the ankle joint in dorsiflexion with the knee extended without pain or crepitus, full range of motion with knee flexed. No calf pain to palpation. Dermatologic: There is a full-thickness ulceration noted to the plantar lateral aspect of the fifth metatarsal head with healthy granular layer with some scant fibrotic tissue around the margins. Periwound demonstrates hyperkeratosis. There is decreasing erythema about the dorsal fifth metatarsal head and fifth digit with decreasing lymphangitic streak along the dorsal foot extending proximally to the distal anterior tibia. This is improving on IV antibiotics. 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 robot operator insulin use: with glass robot operator use Qualified Code(s): E11.42 - Type 2 diabetes mellitus with diabetic polyneuropathy; Z79.4 - FDC (current) use of insulin (5) Type 2 diabetes mellitus with foot ulcer: QUALIFIERS: Diabetes mellitus glass robot operator insulin use: with chcf use Qualified Code(s): E11.621 - Type 2 diabetes mellitus with foot ulcer; L97.509 - Non-pressure chronic ulcer of other part of unspecified foot with unspecified severity; Z79.4 - application operations engineer (current) use of insulin (6) Hallux valgus of right foot: (7) Tailor's bunion of right foot: (8) Peripheral arterial disease: (9) Diabetic infection of right foot: PLAN: Plan Patient seen and evaluated Right foot Ulceration sub 5th metatarsal: There is a full-thickness ulceration noted to the plantar lateral aspect of the fifth metatarsal head with healthy granular layer with some scant fibrotic tissue around the margins. Periwound demonstrates hyperkeratosis. There is decreasing erythema about the dorsal fifth metatarsal head and fifth digit with decreasing lymphangitic streak along the dorsal foot extending proximally to the distal anterior tibia. This is continuing to improve on IV antibiotics. Ulceration measures 1.4 cm x 1 cm x 0.2 cm LEAS 10/13/23: Right GARCÍA 0.87, moderate arterial insufficiency; Doppler and PVR waveforms demonstrate infra popliteal disease. Left GARCÍA 0.41, severe arterial insufficiency. Doppler/PVR waveforms reveal distal SFA/popliteal and infrapopliteal disease. Patient continues to follow with Dr. Figueroa, vascular surgeon WBC currently 8.4; CRP currently 102, decreased from 120; ESR 54 Recent HbgA1c 8.2% on 10/13/2023 Radiographs obtained 12/07/2023 demonstrate soft tissue swelling. MRI was ordered for further evaluation 12/07/2023. MRI demonstrated acute osteomyelitis of the fifth metatarsal head, proximal phalanx, and distal phalanx of the fifth digit in addition to inflammation of the joint capsule and local soft tissues. Dakin's wet to dry dressing applied to ulceration site. Nursing may change dressing daily She is to remain nonweightbearing to right foot Medicine team currently following for medical management, they are greatly appreciated Infectious disease consulted for antibiotic management Vascular surgery consulted for possible management due to mild to moderate arterial occlusive disease right lower extremity Wound nurse following for assisting in dressing changes Discussed with the patient MRI results and she understands surgical intervention is warranted for an partial fifth metatarsal ray amputation of the right foot. Discussed with the patient that the procedure is not an elective procedure and is a limb salvage procedure to decrease spread of infection and prevent more proximal amputation. She is understanding of this. Discussed with the patient the procedure in detail and typical postoperative course. Discussed the risks and complications of the procedure. Discussed the complications include but are not limited to the following: Pain, continued pain, complex regional pain syndrome, phantom pain, infection, delayed healing/nonhealing, dehiscence, neuritis/numbness, scarring, poor cosmetic result, swelling, need for further surgery or procedure, floating toe, contracted toe, transfer lesion, difficulty wearing shoe gear, inability to wear shoe gear, stroke, heart attack, blood clot, addiction to pain medication, allergic reaction, loss of function, loss of limb, loss of life. Patient is understanding of these and was able to repeat these back. No promises were given. No guarantees were made. Patient will be consented for partial fifth ray amputation of the right foot and debridement of right foot ulceration. She will undergo partial fifth ray amputation of the right foot with debridement of right foot ulceration on 12/11/2023 at 1:30 PM, will be n.p.o. at midnight. Jr. Nargis Laboy.[facility] [phone]
--- NOTE | 2023-12-11 09:22 | CASEMGMT ---
Addendum entered by Gail Monae 12/12/23 08:23: Updates sent to [facility]. Requested that precert be submitted. Gail Monae DC Planning Asst. Addendum entered by Gail Monae 12/11/23 12:50: [facility] accepted. SW updated. Gail Monae DC Planning Asst. Original Note: Discharge Planning Updates sent to with note checking on status of referral. Gail Monae DC Planning Asst.
[2023-12-11 11:15] LABS: Bedside Glucose 115 mg/dL (74-106)
--- NOTE | 2023-12-11 12:22 | NURSING ---
pt to surgery
--- NOTE | 2023-12-11 12:45 | RAD_ITS ---
PROCEDURE: Excision of the fifth metatarsal head. DATE OF EXAMINATION: December 11, 2023. INDICATION: Female, 63 years old. Infection FLUOROSCOPY TIME (if supplied): (15 seconds) minutes/seconds RAD/Foot 2 Views IMPRESSION: Intraoperative imaging provided for resection of the midportion of the fifth metatarsal as well as the fifth toe. Electronically Signed: William Hines MD at 15:35 EDT ,
--- NOTE | 2023-12-11 13:21 | PCM.PRE.AN2 ---
ASA Classification* ASA Classification ASA Classification: 3 Assessment & Plan Anesthesia* Anesthesia Assessment Anesthesia Assessment: Discussed sedation and/or anesthesia options, risks, benefits, and alternatives with patient/parents/legal guardian/POA. Questions invited. The patient/parents/legal guardian/POA seems to understand and agrees to proceed with anesthesia plan. Reviewed the physical assessment, medical history, allergy history and patient home medications list prior to surgery/procedure/anesthetic and documented any changes. Performed airway and anesthesia risk assessments. Anesthesia Type Anesthesia Type: General History Source History Obtained from:: Patient and Chart Anesthesia Focused Assessment* Temperature: 98.2 F Pulse Rate: 67 Blood Pressure: 152/91 Respiratory Rate: 16 Pulse Ox: 94 Oxygen Delivery Method: Room Air Airway Assessment Mouth opens: >3 cm Mallampati Score: II Teeth Condition: Chipped/Broken (Patient had a tooth repaired which has then subsequently broken again.) and Missing (Patient has several missing teeth.) Neck Range of motion (ROM): Full ROM Focused Labs Anesthesia Preop lab: CBC WBC 8.4 K/mm3 (4.4-11.0) 12/11/23 06:26 RBC 3.72 M/mm3 (4.2-5.4) L 12/11/23 06:26 Hgb 10.3 g/dL (12.0-15.0) L 12/11/23 06:26 Hct 32.5 % (37-47) L 12/11/23 06:26 Plt Count 213 K/mm3 (150-450) 12/11/23 06:26 CHEMISTRY Potassium 3.8 mmol/L (3.5-5.1) 12/11/23 06:26 Sodium 143 mmol/L (136-145) 12/11/23 06:26 Magnesium 1.8 mg/dL (1.6-2.6) 12/10/23 07:29 Phosphorus 2.9 mg/dL (2.5-4.9) 12/10/23 07:29 BUN 19 mg/dL (7-18) H 12/11/23 06:26 Creatinine 0.71 mg/dL (0.55-1.02) 12/11/23 06:26 Glucose 119 mg/dL (74-106) H 12/11/23 06:26 POC Glucose 115 mg/dL (74-106) H 12/11/23 10:57 TSH 4.23 uIU/mL (0.358-3.74) H 08/04/23 08:31 COAG PT 13.3 SECONDS (11.7-14.9) 12/13/18 13:15 Pre-Assessment Diagnosis/Proposed Procedure Planned Operative Procedure(s): Right foot fifth metatarsal head excision. 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 When Was Last Pacemaker Check QUESTION #4 FULL TEXT: You/Your Family Experience fever (hyperthermia) with Anesthesia Last Oral Intake Last Oral intake: Last Oral Intake NPO since 00:00 12/11/23 09:15 Meds taken in AM with sips of Yes 12/11/23 09:15 water? 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 inspector: PONV - fire sprinkler apparatus inspector Female HX of Motion Sickness HX of N/V After Surgery Non-Smoker Duration of Surgery greater than 60 minutes Number of Risk Factors PONV Score Height & Weight Height & Weight: Anesthesia: Height & Weight Height 5 ft 4 in 12/11/23 09:15 Weight: 96.2 kg 12/11/23 09:15 Body Mass Index (BMI) 36.3 12/11/23 09:15 Respiratory Assessment Respiratory Assessment - fire sprinkler apparatus inspector: Respiratory Tract Infection Hx - fire sprinkler apparatus inspector Hx Respiratory Tract Infection No 12/11/23 09:14 STOP Sleep Apnea STOP Sleep Apnea - fire sprinkler apparatus inspector: STOP Sleep Apnea - fire sprinkler apparatus inspector Hx Hypertension Yes 12/08/23 16:00 Hx Sleep Apnea Yes 12/07/23 17:28 CPAP No 12/07/23 17:28 BIPAP No 12/07/23 17:28 Do you snore loudly (louder than talking or can be heard Do you often feel tired/ fatigued/ sleepy during daytime? Has anyone observed you stop breathing during sleep? STOP Results Positive 12/07/23 17:28 QUESTION #5 FULL TEXT : Do you snore loudly (louder than talking or can be heard through closed doors)? 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 Specify any problems Hx of Preganancy in last 3 N/A 12/07/23 17:28 Months Nurse Filling Out Transfusion FSTEINER 12/07/23 17:28 & Questions: Date: 12/07/23 12/07/23 17:28 Time: 17:28 12/07/23 17:28 Patient unable to answer at this time (ie. confused, unrespo /Reproduction History /Reproductive History - fire sprinkler apparatus inspector: /Reproductive Hx- fire sprinkler apparatus inspector Hx Now No 12/11/23 09:14 Gestational Age (in weeks): EDC: Hx Hx Para Hx Section SAB No 12/11/23 09:14 Active Medications Active Medications: Current Medications Generic Name Dose Route Start Last Admin Trade Name Freq PRN Reason Stop Dose Admin Acetaminophen 1,000 mg 12/07/23 22:00 12/11/23 05:51 Acetaminophen 500 Mg Tablet PO 1,000 mg Q8 HERNESTO Administration Albuterol Sulfate 2.5 mg 12/07/23 17:32 Albuterol 2.5 Mg/3 Ml Vial.Neb. INHALATION Q2H PRN PRN SOB &/OR WHEEZING Amlodipine Besylate 10 mg 12/08/23 10:00 12/11/23 07:26 Amlodipine 10 Mg Tablet PO 10 mg DAILY HERNESTO Administration Protocol Atorvastatin Calcium 40 mg 12/08/23 10:00 12/11/23 07:27 Atorvastatin Calcium 40 Mg Tablet PO 40 mg DAILY HERNESTO Administration Enoxaparin Sodium 40 mg 12/08/23 10:00 12/11/23 07:24 Enoxaparin 40 Mg/0.4 Ml Syringe SC Not Given DAILY HERNESTO Glucagon 1 mg 12/07/23 17:32 Glucagon 1 Mg/Ml Syringe IM X1 PRN HYPOGLYCEMIA Protocol Sodium Chloride 500 mls @ 15 mls/hr 12/07/23 17:27 IV .[id number] PRN Saline Flush Sodium Chloride 500 mls @ 15 mls/hr 12/07/23 17:27 IV .[id number] PRN Additional IVPB Infusion Dextrose 250 mls @ 0 mls/hr 12/07/23 17:32 Dextrose 10%-Water IV .Q0M PRN HYPOGLYCEMIA Protocol As Directed Vancomycin IV-PHARMACY TO DOSE 500 mls @ 250 mls/hr 12/07/23 17:32 1 each/ Sodium Chloride IV PRN PRN Rx to Dose Protocol Meropenem 1 gm/ Sodium 120 mls @ 33 mls/hr 12/07/23 22:00 12/11/23 09:33 Chloride IV Infused Q8 HERNESTO Infusion Insulin Glargine 40 unit 12/08/23 10:00 12/11/23 07:14 Insulin Glargine-Yfgn 100 Unit/Ml Pen SC Not Given DAILY HERNESTO Insulin Human Lispro 0 unit 12/07/23 22:00 12/11/23 11:07 Insulin Lispro 100 Unit/Ml Insuln.Pen SC Not Given ACHS [facility] Protocol Insulin Human Lispro 10 unit 12/07/23 17:32 12/11/23 11:07 Insulin Lispro 100 Unit/Ml Insuln.Pen SC Not Given TIDCM [facility] Levothyroxine Sodium 25 mcg 12/08/23 06:00 12/11/23 05:51 Levothyroxine 25 Mcg Tablet PO 25 mcg DAILY@0600 HERNESTO Administration Losartan Potassium 50 mg 12/08/23 10:00 12/11/23 07:26 Losartan Potassium 50 Mg Tablet PO 50 mg DAILY HERNESTO Administration Protocol Melatonin 3 mg 12/07/23 17:32 Melatonin 3 Mg Tablet PO QHS PRN PRN INSOMNIA Metoprolol Succinate 100 mg 12/08/23 10:00 12/11/23 07:27 Metoprolol(Xl)Succ 100 Mg Tablet PO 100 mg DAILY [facility] Administration Protocol Morphine Sulfate 2 - 4 mg 12/07/23 17:32 Morphine 2 Mg/Ml Syringe IV Q3H PRN PRN Pain Score 6-10 Nystatin 1 applic 12/09/23 10:30 12/11/23 07:27 Nystatin Powder 15gm Bottle TOPICAL 1 applic BID [facility] Administration Protocol Ondansetron HCl 4 mg 12/07/23 17:32 Ondansetron 4 Mg/2 Ml Vial IV Q8H PRN PRN NAUSEA/VOMITING Oxycodone HCl 5 mg 12/07/23 17:32 Oxycodone 5 Mg Tablet PO Q4H PRN PRN Pain Score 4-10 Senna/Docusate Sodium 2 tablet 12/07/23 17:32 Senna/Docusate Sodium 1 Tablet PO BID PRN PRN Constipation Sodium Chloride 10 - 40 ml 12/07/23 17:27 12/10/23 13:50 0.9% Saline Lock 10 Ml Syringe IV 10 ml UD PRN Administration SALINE FLUSH Sodium Hypochlorite 0 ml 12/08/23 10:00 12/11/23 09:33 Dakin's [place] Half Strength (=0.25%) TOPICAL Not Given DAILY [facility] Protocol Vancomycin Protocol 1 lab 12/11/23 16:30 Vancomycin Trough/Random Due [facility] 12/11/23 20:30 [facility]ILY [facility] Medical History Hypothyroidism Diabetes Kidney stones Non-smoker CPAP (continuous positive airway pressure) dependence Asthma Myocardial infarct Atrial fibrillation Osteomyelitis Left rotator cuff tear Impingement of left shoulder Left shoulder pain PAF (paroxysmal atrial fibrillation) Diabetic retinopathy associated with type 2 diabetes mellitus Obesity Skin lesion of left lower extremity Dysarthria Dyspnea Chronic diastolic (congestive) heart failure MARLEN (obstructive sleep apnea) Slurred speech CVA (cerebral vascular accident) (12/14/18) Essential (primary) hypertension Type 2 diabetes mellitus Incontinent of urine neck/back pain Limb weakness Anemia Shoulder pain Arthritis History of deep venous thrombosis (DVT) of distal vein of left lower extremity (04/13/13) 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) Hyperlipidemia History of non-ST elevation myocardial infarction (NSTEMI) (04/08/13) History of non-Hodgkin's lymphoma (2012) Polycystic ovaries IBS (irritable bowel syndrome) Home Medications ?Medication ?Instructions ?Recorded ?Last Taken ?Type albuterol sulfate 90 mcg/actuation 2 puff inhalation Q6H PRN Sob &/Or 08/14/19 04/05/23 10:00 History aerosol inhaler (Proventil HFA) Wheezing metformin 1,000 mg tablet 1,000 mg PO BID type II diabetes 04/02/20 12/06/23 History pen needle, diabetic 31 gauge x #1,200 ea 04/02/20 Unknown History 06/28 losartan 50 mg tablet 50 mg PO DAILY bp #90 tabs 07/26/21 12/06/23 Rx flash glucose sensor (FreeStyle #1 ea 10/19/21 Unknown History Moses 14 Day Sensor kit) insulin degludec 100 unit/mL (3 50 unit subcut DAILY type II 10/19/21 12/06/23 History mL) subcutaneous pen (Tresiba diabetes FlexTouch U-100 insulin) amlodipine 10 mg tablet 10 mg PO DAILY #30 tabs 04/07/23 Unknown Rx apixaban 5 mg tablet (Eliquis) See Rx Instructions .Route 04/10/23 12/06/23 Rx .COMPLEX #60 TABLETS atorvastatin 40 mg tablet 40 mg PO DAILY #90 TABLETS 10/06/23 12/06/23 Rx insulin lispro 100 unit/mL 30 unit subcut TIDCM 12/07/23 12/06/23 History subcutaneous pen (Humalog KwikPen (U-100) Insulin) levothyroxine 25 mcg tablet 25 mcg PO DAILY 12/07/23 12/06/23 History metoprolol succinate 100 mg 100 mg PO DAILY 12/07/23 12/06/23 History tablet,extended release 24 hr Allergy/AdvReac Type Severity Reaction Status Date / Time Penicillins Allergy Severe Rash Verified 12/07/23 12:29 grass pollen Allergy Intermediate Other Verified 12/07/23 12:29 tree and shrub pollen Allergy Intermediate Other Verified 12/07/23 12:29 lisinopril AdvReac Intermediate Other Verified 12/07/23 12:29 hydrocodone bitartrate (From AdvReac Mild Unknown Verified 12/07/23 12:29 Vicodin) losartan AdvReac Heart Burn Verified 12/07/23 12:29 Family History Father , 65 Diabetes Hypertension cabg Mother , Age 65 Hypertension Renal failure Sister Cancer Sister Diabetes Cardiomegaly Surgical History History of appendectomy Hx of CABG History of left heart catheterization (07/26/18) H/O coronary artery bypass surgery (04/10/13) Atherosclerotic heart disease of [place] coronary artery without angina pectoris Social History household members: children Smoking Status: Never smoker alcohol intake: never substance use type: does not use caffeine: Yes Type: coffee Number of servings: 2 Addt'l Information Additional Findings: Patient has some residual right-sided weakness. Review of Systems (Anesthesia) ROS Narrative System reviewed and no additional complaints, except as documented.
--- NOTE | 2023-12-11 13:30 | AMP_PTH ---
PATIENT: JOSH GRAY LOC: MS3 U#:[id number] AGE/SX: 63/F ROOM: [facility] [place]/07/[address]: Dr. Matteo Urena MD : 1960 BED: 1 DIS: 12/14/2023 SPEC #: [id number] RECD: 12/12/23 10:25 STATUS: GABINO REJuju #: [id number] SMITA: 12/11/23 13:[address]: Pavel Trimble DEPT: SURGICAL PATHOLOGY RECD BY: Freddy Kent ENTERED: 12/12/23 11:11 SP TYPE: Amputation OTHR DR: MD Dr. Roosevelt Gutiérrez MD Dr. Lisa Malys, DO Dr. Nicholas F Kotsonis, MD Dr. Paige Pierce, MD Dr. Robert Leininger, MD Tissues: A - Toe, NOS B - Bone of foot, NOS Procedures: Decalcification bone/plaque Surgery Specimen Level III Surgery Specimen Level IV HEADER OPERATION: Right 5th metatarsal partial amputation PRE-OP DIAGNOSIS: Cellulitis of right foot, osteomyelitis, non-pressure chronic 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, diabetes mellitus with diabetic polyneuropathy, type 2 diabetes mellitus with foot ulcer, hallux valgus of right foot, Tailor's bunion of right foot, peripheral arterial disease, diabetic infection of right foot TISSUE SUBMITTED: A- Right 5th digit, B- Right 5th metatarsal head MICROSCOPIC DIAGNOSIS A. Right 5th digit, amputation: Acute and chronic inflammation and granulation tissue reaction. Underlying bone with chronic inflammation and reactive changes, negative for acute osteomyelitis. B. Right 5th metatarsal head, amputation: A piece of bone with acute and chronic osteomyelitis and reactive changes. Adherent piece of fibroconnective and fibroadipose tissue with acute and chronic inflammation and granulation tissue reaction. 12/15/2023 MICROSCOPIC DESCRIPTION Slides are reviewed. GROSS DESCRIPTION A. Received in fixative is one container labeled with the patient's name and designated Right 5th digit. The specimen consists of a portion of toe measuring 3.5 x 1.5 x 1.5cm. Stem Dryer Maintainer sections are submitted in two cassettes as follows: 1- skin with congested area, 2- bone after decalcification. B. Received in fixative is one container labeled with the patient's name and designated Right 5th metatarsal head. The specimen consists of a piece of bone measuring 1.5 x 1.0 x 0.8cm. Stem Dryer Maintainer sections are submitted in one cassette after decalcification. 12/12/2023 TC:2 CPT:02514k6, [id number]
[2023-12-11] MEDS: Lactated Ringers 1,000 ML 15 ML IV (13:45)
[2023-12-11] MEDS: Vancomycin IV 1,000 MG/20 ML Vial 1000 MG OPERA.SITE (14:18)
[2023-12-11] MEDS: Lidocaine 1% (30 ml sdv) 30 ML Vial (15:08)
[2023-12-11] MEDS: Bupivacaine Mpf 0.5% 30 ML VIAL (15:08)
--- NOTE | 2023-12-11 15:22 | PCM.POST.ANE ---
Anesthesia: Postop Eval I Current Vital Signs Temperature: 97.3 F Pulse Rate: 71 Blood Pressure: 131/81 Respiratory Rate: 18 Pulse Ox: 93 Assessment Airway patent: Yes Spontaneous unlabored respirations: Yes nausea: No Vomiting: No Anesthesia Complication: No Fluid Hydration Crystalloid volume administer (ml): 800 Total IV fluid infused: 800 Progress Note Anesthesia document: Postop Eval 1 completed: Yes
--- NOTE | 2023-12-11 15:35 | PCM.OPRPT ---
Problems Associated Problem List Diagnoses (1) Osteomyelitis: (2) Cellulitis of foot, right: (3) Non-pressure chronic 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: (4) Diabetes mellitus with diabetic polyneuropathy: (5) Diabetic infection of right foot: (6) Type 2 diabetes mellitus with foot ulcer: Operative Report (Standard) Operative Information Surgery/Procedure Performed: 1. Partial fifth ray amputation right foot 2. Incision and drainage with debridement of necrotic tissue right foot 3. Incision of bone cortex right foot 4. Debridement of ulceration to the level of muscle right foot 5. Tissue rearrangement/skin flap right foot Surgeon: Pavel Trimble Date of Procedure: 12/11/23 Procedure Start Time: 14:18 Procedure Stop Time: 15:13 Pre-Operative Diagnosis: 1. Osteomyelitis 5th metatarsal and 5th digit Right foot 2. Cellulitis right foot 3. Ulceration to the level of muscle with necrosis subfifth metatarsal head right foot 4. DM type II with peripheral polyneuropathy 5. DM type II with ulceration subfifth metatarsal head right foot 6. PVD Post-Operative Diagnosis: 1. Osteomyelitis 5th metatarsal and 5th digit Right foot 2. Cellulitis right foot 3. Ulceration to the level of muscle with necrosis subfifth metatarsal head right foot 4. DM type II with peripheral polyneuropathy 5. DM type II with ulceration subfifth metatarsal head right foot 6. PVD Select all DRAINS/GRAFTS/IMPLANTS that apply: None Type of Anesthesia: General and Local (20 cc one-to-one mixture of 1% lidocaine plain and 0.5% Marcaine plain) Estimated Blood Loss: <2 mL Specimen collected: Yes Description of specimen(s) removed: Bone fifth digit right foot, bone fifth metatarsal head, tissue fifth metatarsal, swab culture aerobic and anaerobic Description of surgery: HPI/indication: This is a 63-year-old female who presented to wound care center with a subfifth metatarsal ulceration of the right foot and Hx of DM type II with peripheral polyneuropathy and PVD. She had been following in the wound care center for a few weeks undergoing serial debridement, application of EpiFix, and hyperbaric dives. She was noted to be healing well however did develop acute cellulitis following one of her hyperbaric treatments which did progress with lymphangitic streaking proximal distal tibia. She was admitted to [facility] on 12/07/2023 and started on IV antibiotics. MRI was performed on 12/08/2023 demonstrating acute osteomyelitis of the fifth metatarsal head, proximal phalanx and distal phalanx of the fifth digit of the right foot. Discussion was had with patient to undergo partial fifth ray amputation of the right foot which was scheduled for 12/08/2023 however patient did eat and thus procedure was canceled. She was rescheduled for 12/11/2023 to undergo partial fifth ray amputation of the right foot. Procedure was discussed with patient in great detail. Typical postoperative course was discussed in detail. Risks and complications were discussed in detail. Discussed with patient the risks include but are not limited to the following: Pain, continued pain, complex regional pain syndrome, phantom pain, infection, delayed healing/nonhealing, dehiscence, neuritis/numbness, scarring, poor cosmetic result, swelling, need for further surgery/procedure, transfer lesion, difficulty wearing shoe, difficulty with ambulation, inability to wear shoe, stroke, heart attack, blood clot, addiction to pain medication, allergic reaction, loss of function, loss of limb, loss of life. Patient is understanding of these and was able to repeat these back. No promises were given. No guarantees were made. All diagnostic data was reviewed prior to entering the OR. Operative limb was signed prior to entering the OR. Patient was scheduled to undergo partial fifth ray amputation of the right foot, debridement of ulceration to the level of muscle, incision of bone cortex, and tissue rearrangement/skin flap at [facility] on 12/11/2023. Procedure: Under mild sedation patient was brought into the operating placed on the table in supine position. Patient was secured to table with safety belt. Following induction of IV anesthesia patient underwent general anesthetic. [place] bump was placed under the right hip. [place] bump was then used to elevate right lower extremity. A pneumatic ankle tourniquet was then placed about the patient's right ankle. A local anesthetic block was then performed proximal near the base of the fifth metatarsal proximal to any local cellulitis with block consisting of of 10 cc one-to-one mixture 1% lidocaine plain and 0.5% Marcaine plain. The foot was then scrubbed, prepped, and draped in usual aseptic manner. Esmarch bandage was utilized to exsanguinate the right foot and the pneumatic ankle tourniquet was inflated to 250 mmHg. Attention was then directed to the right foot where fluoroscopic imaging was utilized to guide incision placement. Imaging did demonstrate subtle erosive changes of the distal fifth metatarsal as well as the base of the fifth proximal phalanx consistent with osteomyelitis. Foot was noted to have improvement in cellulitis while on IV antibiotics, however the fifth digit still demonstrated cellulitis with discoloration overlying the fifth MTPJ. There was also a plantar ulceration plantar lateral fifth metatarsal head. A linear incision was made overlying the distal shaft of the fifth metatarsal extended distally encompassing digit and racquet style incision and deepened to bone utilizing #15 blade. Digit was sharply disarticulated at the fifth metatarsophalangeal joint utilizing #15 blade. Digit was then passed from the operative field to the table in toto. No purulence nor malodor was noted during incision and dissection, however, there was some necrotic tissue about the fifth metatarsal head and base of the fifth digit near the site of plantar ulceration with direct communication from the plantar ulcer to the fifth metatarsal head. Swab aerobic and anaerobic cultures were obtained about the fifth metatarsal head/necrotic tissue. Necrotic tissue was sharply excised and debrided and passed from the operative field to the table in toto and sent to microbiology for culture. Digit bone was sharply transected with pieces going to microbiology and pathology for analysis. Next, utilizing guidance of fluoroscopy fifth metatarsal was transected proximally through a healthy appearing bone utilizing a sagittal saw. Bone was noted to be hard in quality and healthy in appearance and the cut was made just proximal to this region. The fifth metatarsal was passed from the operative field to the table in toto and transected on the back table with cultures going to microbiology and pathology for analysis. Next, extensor and flexor tendons were identified and transected as far proximal as possible and all remaining necrotic tissue was debrided to healthy bleeding tissue. Site was then flushed with copious amounts of normal sterile saline. Next attention was directed to the plantar aspect of the foot below the previous site of the fifth metatarsal head where there was a full-thickness ulceration noted that did probe to bone/has a direct communication with the fifth metatarsal head. Ulceration site underwent debridement to the level of muscle. Predebridement measurements obtained 0.9 cm x 0.9 cm x 0.4 cm and postdebridement measurements measure 1.0 cm x 1.0 cm 0.5 cm. Sites were again flushed with copious amounts of normal sterile saline. Tissue rearrangement was performed on the plantar aspect of the foot with advancement flap to close previous site of ulceration. Site was then closed utilizing a 4-0 Vicryl for deep closure and 3-0 Prolene. Attention was then directed dorsally where no purulent drainage was expressible and all remaining necrotic tissue was debrided to healthy viable tissue. At this time 1 g of vancomycin powder was placed throughout the tissue. The dorsal incision site underwent soft tissue remodeling/tissue rearrangement/skin flap preparation to provide adequate soft tissue closure. Deep tissue was then closed utilizing 4-0 Vicryl. Subcutaneous tissue closed utilizing 4-0 Monocryl. The skin was then reapproximated utilizing 3-0 Prolene in simple interrupted fashion. The pneumatic ankle tourniquet was then deflated and a prompt hyperemic response was noted to the digits of the right foot. A postoperative block was then performed proximal to the fifth metatarsal consisting of 10 cc one-to-one mixture of 1% lidocaine plain and 0.5% Marcaine plain. Incision site was then dressed utilizing Betadine soaked Adaptic, 4 x 4 gauze, ABD, Kerlix, and 4 inch James wrap rolled onto the right foot. Patient tolerated the procedure and anesthesia well and was transported to PACU with vital signs stable vascular status intact to the right foot. Once anesthesia protocol has been met patient will be returned to the floor and continue to receive IV antibiotics. She will continue to elevate the right lower extremity at all times of rest for postoperative edema control. Patient is to remain nonweightbearing to the right lower extremity with the assistance of walker/wheelchair. She is to keep dressings clean, dry, and intact. I will continue to follow while in house and following her discharge patient will continue to follow with me in the wound care center for continued postoperative care. Surgical Findings: See operative note for findings Director Of Special Education truck rental clerk: Yes Horticulture Instructor: Mp Price DPM PGY-1 Tasks completed by first crusher: Opening, Dissecting tissue and Retracting Complications Complications: No Admit VTE Documentation VTE Present on Admission: No VTE Mechan Device Prophylaxis: SCD's VTE Pharm Prophylaxis ordered?: No Reason prophylaxis not ordered: Treatment Not Indicated
--- NOTE | 2023-12-11 15:45 | RAD_ITS ---
STUDY: X-RAY - RIGHT FOOT CLINICAL: Female, 63 years old. Post-op, Partial 5th ray amputation. TECHNIQUE: 3 views of the right foot. COMPARISON: Right foot radiographs dated 12/07/2023. FINDINGS: Intact talus, calcaneus, and tarsal bones. There is a plantar calcaneal spur. Normal visualized subtalar, talonavicular, calcaneocuboid, tarsal and tarsometatarsal articulations. There has been amputation of the fifth digit across the mid shaft of the fifth metatarsal, with adjacent soft tissue gas. Normal first through fourth metatarsi. There is degenerative arthrosis of the metatarsophalangeal joint of the hallux with a hallux valgus deformity. Normal tibial and fibular sesamoid bones. Normal interphalangeal joint of the great toe. Normal phalanges of the great toe. Normal second through fourth metatarsophalangeal joints. Normal interphalangeal joints and phalanges of the second through fourth toes. RAD/Foot min 3 Views IMPRESSION: Recent amputation of the fifth digit across the midshaft of the fifth metatarsal. Degenerative arthrosis of the first MTP joint with hallux valgus deformity. Plantar calcaneal spur. Electronically Signed: Chadd Joya MD at 9:14 EDT ,
--- NOTE | 2023-12-11 15:59 | CON.PCM.ID_ITS ---
Assessment & Plan Assessment/Plan (1) Diabetic foot ulcer with osteomyelitis: PLAN: Now s/p partial R 5th ray amputation by Dr. Trimble. Wound cx 10/05/23 with providencia, GBS, strep mitis, eikenella, pasteurella, anaerobes. On vanc/zahraa. Will narrow to vanc/ceftriaxone/flagyl. Reports tolerating other beta lactams in the past. 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 No known inciting event. Has been following at wound center. Over past week, developed new redness streaking up leg. Limited feeling in foot. No drainage, mild chills. Admitted here, had fever, started on vanc and meropenem. Taken to OR today by Dr. Trimble. Thinks she has taken amoxicillin without issue. Full ROS performed and neg except as noted above. [facility] Medical History Hypothyroidism Diabetes Kidney stones Non-smoker CPAP (continuous positive airway pressure) dependence Asthma Myocardial infarct Atrial fibrillation Osteomyelitis Left rotator cuff tear Impingement of left shoulder Left shoulder pain PAF (paroxysmal atrial fibrillation) Diabetic retinopathy associated with type 2 diabetes mellitus Obesity Skin lesion of left lower extremity Dysarthria Dyspnea Chronic diastolic (congestive) heart failure MARLEN (obstructive sleep apnea) Slurred speech CVA (cerebral vascular accident) (12/14/18) Essential (primary) hypertension Type 2 diabetes mellitus Incontinent of urine neck/back pain Limb weakness Anemia Shoulder pain Arthritis History of deep venous thrombosis (DVT) of distal vein of left lower extremity (04/13/13) 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) Hyperlipidemia History of non-ST elevation myocardial infarction (NSTEMI) (04/08/13) History of non-Hodgkin's lymphoma (2012) Polycystic ovaries IBS (irritable bowel syndrome) Home Medications ?Medication ?Instructions ?Recorded ?Last Taken ?Type albuterol sulfate 90 mcg/actuation 2 puff inhalation Q6H PRN Sob &/Or 08/14/19 04/05/23 10:00 History aerosol inhaler (Proventil HFA) Wheezing metformin 1,000 mg tablet 1,000 mg PO BID type II diabetes 04/02/20 12/06/23 History pen needle, diabetic 31 gauge x #1,200 ea 04/02/20 Unknown History 06/28 losartan 50 mg tablet 50 mg PO DAILY bp #90 tabs 07/26/21 12/06/23 Rx flash glucose sensor (FreeStyle #1 ea 10/19/21 Unknown History Moses 14 Day Sensor kit) insulin degludec 100 unit/mL (3 50 unit subcut DAILY type II 10/19/21 12/06/23 History mL) subcutaneous pen (Tresiba diabetes FlexTouch U-100 insulin) amlodipine 10 mg tablet 10 mg PO DAILY #30 tabs 04/07/23 Unknown Rx apixaban 5 mg tablet (Eliquis) See Rx Instructions .Route 04/10/23 12/06/23 Rx .COMPLEX #60 TABLETS atorvastatin 40 mg tablet 40 mg PO DAILY #90 TABLETS 10/06/23 12/06/23 Rx insulin lispro 100 unit/mL 30 unit subcut TIDCM 12/07/23 12/06/23 History subcutaneous pen (Humalog KwikPen (U-100) Insulin) levothyroxine 25 mcg tablet 25 mcg PO DAILY 12/07/23 12/06/23 History metoprolol succinate 100 mg 100 mg PO DAILY 12/07/23 12/06/23 History tablet,extended release 24 hr Allergy/AdvReac Type Severity Reaction Status Date / Time Penicillins Allergy Severe Rash Verified 12/07/23 12:29 grass pollen Allergy Intermediate Other Verified 12/07/23 12:29 tree and shrub pollen Allergy Intermediate Other Verified 12/07/23 12:29 lisinopril AdvReac Intermediate Other Verified 12/07/23 12:29 hydrocodone bitartrate (From AdvReac Mild Unknown Verified 12/07/23 12:29 Vicodin) losartan AdvReac Heart Burn Verified 12/07/23 12:29 Family History Father , 65 Diabetes Hypertension cabg Mother , Age 65 Hypertension Renal failure Sister Cancer Sister Diabetes Cardiomegaly Surgical History History of appendectomy Hx of CABG History of left heart catheterization (07/26/18) H/O coronary artery bypass surgery (04/10/13) Atherosclerotic heart disease of [place] coronary artery without angina pectoris Social History household members: children Smoking Status: Never smoker alcohol intake: never substance use type: does not use caffeine: Yes Type: coffee Number of servings: 2 Physical Exam Const alert, oriented x3 and no apparent distress General Appearance: cooperative HEENT normocephalic and head/scalp atraumatic Eyes PERRL and EOMs intact bilaterally Neck supple and No nodes Resp normal air movement and clear to auscultation bilaterally Cardio regular rate and regular rhythm GI soft to palpation, non-tender and non-distended Extremity General Extremity: Negative for edema Skin Skin Narrative: R foot wrapped, reviewed photos Neuro CN's II-XII intact bilaterally Lab / Micro Data Attestation: I reviewed the patient's lab results. 12/11/23 06:26 12/11/23 06:26 Labs: Laboratory Results - last 24 hr 12/10/23 16:39: POC Glucose 141 H 12/10/23 21:16: POC Glucose 119 H 12/11/23 06:25: POC Glucose 111 H 12/11/23 06:26: WBC 8.4, RBC 3.72 L, Hgb 10.3 L, Hct 32.5 L, MCV 87.4, MCH 27.7, MCHC 31.7 L, RDW Std Deviation 48.2 H, RDW Coeff of Dutch 15.0 H, Plt Count 213, MPV 10.6, Immature Gran % (Auto) 1.000 H, Neut % (Auto) 53.8, Lymph % (Auto) 27.6, Millard % (Auto) 9.0, Eos % (Auto) 8.1 H, Baso % (Auto) 0.5, Absolute Neuts (auto) 4.5, Absolute Lymphs (auto) 2.31, Nucleated RBC % 0, Sodium 143, Potassium 3.8, Chloride 114 H, Carbon Dioxide 23.0, Anion Gap 6, BUN 19 H, Creatinine 0.71, Estim Creat Clear Calc 90.10, Est GFR (MDRD) Af Amer 107, Est GFR (MDRD) Non-Af 88, BUN/Creatinine Ratio 26.9 H, Glucose 119 H, Calcium 8.8, V ancomycin Trough 23.6 H 12/11/23 10:57: POC Glucose 115 H Imaging Radiology Impression Foot X-Ray 12/11/23 12:45 IMPRESSION: Intraoperative imaging provided for resection of the midportion of the fifth metatarsal as well as the fifth toe. Electronically Signed: William Hines MD at 15:35 EDT ,
--- NOTE | 2023-12-11 16:01 | POSTOPAN2_ITS ---
Anesthesia Postop Eval I Sum Postop Eval Completion status Anesthesia document: Postop Eval 1 completed: Yes Anesthesia Postop Eval I Summary Anesthesia Postop Eval I Summary: Anesthesia Postop Eval I: Assessment Summary Airway patent Yes 12/11/23 15:22 DIGITAL MARKETING CONSULTANT.CSIR Spontaneous unlabored Yes 12/11/23 15:22 DIGITAL MARKETING CONSULTANT.CSIR respirations Mental status nausea No 12/11/23 15:22 DIGITAL MARKETING CONSULTANT.CSIR Vomiting No 12/11/23 15:22 DIGITAL MARKETING CONSULTANT.CSIR Anesthesia Postop Eval I: Fluid Summary Crystalloid volume administer 800 12/11/23 15:22 DIGITAL MARKETING CONSULTANT.CSIR (ml) Colloids volume administered ( ml) Blood Product volume administered (ml) Total IV fluid infused 800 12/11/23 15:22 DIGITAL MARKETING CONSULTANT.CSIR Anesthesia Postop Eval I: Summary Notes Anesthesia Complication No 12/11/23 15:22 DIGITAL MARKETING CONSULTANT.CSIR Anesthesia Complication Comment: Post-operative progress note Anesthesia: Postop Eval II Evaluation Mental status: Awake and Calm Pain Level: 1 nausea: No Vomiting: No Complications Anesthesia Complication: No
--- NOTE | 2023-12-11 16:01 | PCM.POSTANE2 ---
Anesthesia Postop Eval I Sum Postop Eval Completion status Anesthesia document: Postop Eval 1 completed: Yes Anesthesia Postop Eval I Summary Anesthesia Postop Eval I Summary: Anesthesia Postop Eval I: Assessment Summary Airway patent Yes 12/11/23 15:22 PROCESS CONTROLLER.CSIR Spontaneous unlabored Yes 12/11/23 15:22 PROCESS CONTROLLER.CSIR respirations Mental status nausea No 12/11/23 15:22 PROCESS CONTROLLER.CSIR Vomiting No 12/11/23 15:22 PROCESS CONTROLLER.CSIR Anesthesia Postop Eval I: Fluid Summary Crystalloid volume administer 800 12/11/23 15:22 PROCESS CONTROLLER.CSIR (ml) Colloids volume administered ( ml) Blood Product volume administered (ml) Total IV fluid infused 800 12/11/23 15:22 PROCESS CONTROLLER.CSIR Anesthesia Postop Eval I: Summary Notes Anesthesia Complication No 12/11/23 15:22 PROCESS CONTROLLER.CSIR Anesthesia Complication Comment: Post-operative progress note Anesthesia: Postop Eval II Evaluation Mental status: Awake and Calm Pain Level: 1 nausea: No Vomiting: No Complications Anesthesia Complication: No
[2023-12-11 16:25] LABS: Bedside Glucose 149 mg/dL (74-106)
[2023-12-11] MEDS: Ceftriaxone 2 GM in 0.9% Normal Saline (50mL MB+) 50 ML IV (16:36)
--- NOTE | 2023-12-11 17:13 | PN_ITS ---
Subjective Subjective Patient was seen following procedure. States she is not in much pain following procedure but does have peripheral polyneuropathy in addition she did receive post anesthetic block proximal to surgical site. Patient is ready to eat following procedure. Objective Data Objective Data Vital Signs: Vital Signs Temp Pulse Resp BP Pulse Ox O2 Del Method 97.6 F L 69 16 139/72 H 92 Room Air 12/11/23 16:44 12/11/23 16:44 12/11/23 16:44 12/11/23 16:44 12/11/23 16:44 12/11/23 16:44 Oxygen Delivery Method Room Air Weight: 96.2 kg Body Mass Index (BMI) 36.3 Intake & Output: Intake and Output for Last 24 Hours 12/09/23 12/10/23 12/11/23 23:59 23:59 23:59 Intake Total 760 / 760 1660 / 1660 240 / 240 Output Total 1000 / 1000 Balance 760 / 410 660 / 660 240 / 240 Lab / Micro Data 12/11/23 06:26 12/11/23 06:26 Labs: Laboratory Results - last 24 hr 12/10/23 21:16: POC Glucose 119 H 12/11/23 06:25: POC Glucose 111 H 12/11/23 06:26: WBC 8.4, RBC 3.72 L, Hgb 10.3 L, Hct 32.5 L, MCV 87.4, MCH 27.7, MCHC 31.7 L, RDW Std Deviation 48.2 H, RDW Coeff of Dutch 15.0 H, Plt Count 213, MPV 10.6, Immature Gran % (Auto) 1.000 H, Neut % (Auto) 53.8, Lymph % (Auto) 27.6, [place] % (Auto) 9.0, Eos % (Auto) 8.1 H, Baso % (Auto) 0.5, Absolute Neuts (auto) 4.5, Absolute Lymphs (auto) 2.31, Nucleated RBC % 0, Sodium 143, Potassium 3.8, Chloride 114 H, Carbon Dioxide 23.0, Anion Gap 6, BUN 19 H, Creatinine 0.71, Estim Creat Clear Calc 90.10, Est GFR (MDRD) Af Amer 107, Est GFR (MDRD) Non-Af 88, BUN/Creatinine Ratio 26.9 H, Glucose 119 H, Calcium 8.8, V ancomycin Trough 23.6 H 12/11/23 10:57: POC Glucose 115 H 12/11/23 16:07: POC Glucose 149 H Micro: Microbiology 12/07/23 17:56 Blood Culture (Wb) - Anticubital Right Blood Culture - Preliminary No growth in 48 hours. Radiography Diagnostic Testing: Radiology Impression Foot X-Ray 12/11/23 12:45 IMPRESSION: Intraoperative imaging provided for resection of the midportion of the fifth metatarsal as well as the fifth toe. Electronically Signed: William Hines MD at 15:35 EDT , Physical Exam Const alert, oriented x3 and no apparent distress General Appearance: cooperative Eyes General Eye: normal appearance of both eyes Neck General: normal visual inspection Lymph Lymphatic: no lymphedema noted Lymphatic Narrative: Acute cellulitis with lymphangitic streaking dorsal foot and anterior distal tibia Resp normal respiratory effort Cardio regular rate and regular rhythm Extremity no calf tenderness Extremity Narrative: Right lower extremity: Vascular: DP and PT pulses nonpalpable. Doppler demonstrates monophasic DP and PT. CFT is less than 5 seconds to the digits. Hair growth is absent to digits. Normal temperature gradient noted proximally with increased warmth secondary to erythema consistent with acute cellulitis to dorsal foot and fifth digit. Neurologic: Gross sensation is intact to the foot. Protective sensation is absent secondary to diabetic peripheral polyneuropathy. Musculoskeletal: Muscle strength 5 of 5 age-appropriate. There is an HAV deformity noted with lateral deviation of the hallux in addition to tailor bunion deformity with plantar foot ulceration of the fifth metatarsal head. No pain to palpation about the ulcerative site however fifth digit is painful secondary to acute cellulitis. There is decreased range of motion of the ankle joint in dorsiflexion with the knee extended without pain or crepitus, full range of motion with knee flexed. No calf pain to palpation. Dermatologic: Erythema is decreasing to the dorsal foot. Sutures are intact dorsal s/p partial fifth ray amputation with skin flap and sutures also intact to plantar skin secondary to skin flap closure over the previous ulcerative site. Surgical dressings are in place to right foot. Skin skin turgor normal and no jaundice Neuro moves all extremities Assessment & Plan Assessment/Plan (1) Osteomyelitis: QUALIFIERS: Osteomyelitis type: unspecified type Osteomyelitis location: foot Laterality: right Qualified Code(s): M86.9 - Osteomyelitis, unspecified (2) Cellulitis of foot, right: (3) Non-pressure chronic 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: (4) Diabetes mellitus with diabetic polyneuropathy: QUALIFIERS: Diabetes mellitus type: type 2 Diabetes mellitus [facility] insulin use: with [facility] use Qualified Code(s): E11.42 - Type 2 diabetes mellitus with diabetic polyneuropathy; 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 (5) Diabetic infection of right foot: (6) Type 2 diabetes mellitus with foot ulcer: QUALIFIERS: Diabetes mellitus [facility] insulin use: with 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 DOS 12/11/2023 Right foot: Erythema is decreasing to the dorsal foot. Sutures are intact dorsal s/p partial fifth ray amputation with skin flap and sutures also intact to plantar skin secondary to skin flap closure over the previous ulcerative site. Surgical dressings are in place to right foot. LEAS 10/13/23: Right GARCÍA 0.87, moderate arterial insufficiency; Doppler and PVR waveforms demonstrate infra popliteal disease. Left GARCÍA 0.41, severe arterial insufficiency. Doppler/PVR waveforms reveal distal SFA/popliteal and infrapopliteal disease. Patient continues to follow with Dr. Figueroa, vascular surgeon WBC currently 8.4; CRP currently 102, decreased from 120; ESR 54 Recent HbgA1c 8.2% on 10/13/2023 Radiographs obtained 12/07/2023 demonstrate soft tissue swelling. MRI was ordered for further evaluation 12/07/2023. MRI demonstrated acute osteomyelitis of the fifth metatarsal head, proximal phalanx, and distal phalanx of the fifth digit in addition to inflammation of the joint capsule and local soft tissues. Surgical cultures: Swab cultures aerobic anaerobic, awaiting results; tissue fifth metatarsal, awaiting results; bone fifth digit and bone fifth metatarsal, awaiting results Surgical dressings: Incision sites dressed with Betadine soaked Adaptic, 4 x 4 gauze, ABD, Kerlix, and 4 inch James wrap rolled onto the foot. Nursing may reinforce for strikethrough. Medicine team currently following for medical management, they are greatly appreciated Infectious disease following for antibiotic management Vascular surgery consulted for possible management due to mild to moderate arterial occlusive disease right lower extremity Wound nurse following for assisting in dressing changes She is to continue to elevate right lower extremity/foot at all times for postoperative edema control She is to continue to be nonweightbearing to the right foot with the assistance of walker/knee scooter/wheelchair Surgical dressings to remain intact with next dressing change 12/13/2023. Upon discharge patient will go to SNF for continued care will continue to follow with me in wound care center for postoperative care. Jr. Nargis Laboy.P.M. [facility] [phone]
[2023-12-11] MEDS: Insulin Lispro 100 UNIT/ML INSULN.PEN 10 UNIT SC (17:41)
[2023-12-11 19:03] LABS: Vancomycin, Random Level 16.6 ug/mL (0.0-15.0)
--- NOTE | 2023-12-11 19:31 | PCM.RX.CS ---
Consult Antibiotic Management Pharmacy has been consulted to manage selected antibiotic: Vancomycin Type of Intervention Type of Consult: Follow-up Suspected Infection Suspected Infection: Skin/Soft tissue and Osteomyelitis Prior Doses of Antibiotics Prior Doses of Antibiotics Received/Current Regimen: 1000mg iv q12h Labs Labs: Sodium 143 mmol/L (136-145) 12/11/23 06:26 Potassium 3.8 mmol/L (3.5-5.1) 12/11/23 06:26 Chloride 114 mmol/L (98-107) H 12/11/23 06:26 Carbon Dioxide 23.0 mmol/L (21.0-32.0) 12/11/23 06:26 Anion Gap 6 (5-15) 12/11/23 06:26 BUN 19 mg/dL (7-18) H 12/11/23 06:26 Creatinine 0.71 mg/dL (0.55-1.02) 12/11/23 06:26 Est GFR (MDRD) Af Amer 107 mL/min (>60) 12/11/23 06:26 Est GFR (MDRD) Non-Af 88 mL/min (>60) 12/11/23 06:26 BUN/Creatinine Ratio 26.9 RATIO (10-20) H 12/11/23 06:26 Glucose 119 mg/dL (74-106) H 12/11/23 06:26 Vancomycin Trough 23.6 ug/mL (5.0-15.0) H 12/11/23 06:26 Random Vancomycin 16.6 ug/mL (0.0-15.0) H 12/11/23 18:30 Microbiology Microbiology: Microbiology 12/07/23 17:56 Blood Culture (Wb) - Anticubital Right Blood Culture - Preliminary No growth in 48 hours. Dosing Weight Weight used for dosin.2 kg Estimated Creatinine Clearance Estimated Creatinine Clearance: 90 ml/min Goal Trough Goal Trough: 15-20 mcg/mL Pharmacy Plan for Drug Dosing Pharmacy Plan for Drug Dosing: Random level ~24hrs post last dose was 16.6 and in therapeutic range. Previous trough level this AM was 23.6. Recommend changing dose from 1gm iv q12h to 1500mg iv q24h. Trough level before 3rd dose of dosing change per policy. Pharmacy Service will continue to monitor and adjust dosing as required. Follow-Up Labs Follow-Up Labs: Trough: Vancomycin (12.13.23 @1930)
[2023-12-11] MEDS: Vancomycin HCl 1,750 MG in 0.9% Normal Saline (500mL Bag) 500 ML 250 MG IV (20:17)
[2023-12-11] MEDS: metroNIDAZOLE 500 MG Tablet PO (22:06)
[2023-12-11] MEDS: Insulin Lispro 100 UNIT/ML INSULN.PEN SC (22:10)
[2023-12-11 22:29] LABS: Bedside Glucose 241 mg/dL (74-106)
[2023-12-12 04:25] VITALS: BP 146/73; PULSE 67; RESP 16; TEMP 36.6; O2SAT 96
[2023-12-12 04:35] VITALS: BMI 37.3
[2023-12-12] MEDS: Acetaminophen 500 MG Tablet 1000 MG PO ×3 (05:22→21:40)
[2023-12-12] MEDS: metroNIDAZOLE 500 MG Tablet PO ×3 (05:22→21:40)
[2023-12-12] MEDS: Levothyroxine 25 MCG TABLET PO (05:22)
[2023-12-12] MEDS: Insulin Lispro 100 UNIT/ML INSULN.PEN SC ×4 (06:43→21:41)
[2023-12-12 07:01] LABS: Absolute Lymphocyte Count 1.94 X10^3/uL (0.83-4.51); Absolute Neutrophil Count 7.1 X10^3/uL (2.0-7.7); Basophil# 0.03 X10^3/uL; Basophil% 0.3 % (0-1); Eosinophil# 0.05 X10^3/uL; Eosinophils% 0.5 % (0-5); Hematocrit 33.9 % (37-47); Hemoglobin 10.6 g/dL (12.0-15.0); Lymphocyte # 1.94 X10^3/ul (0.83-4.51); Lymphocyte % 19.9 % (19-41); Mean Corp Hgb Conc 31.3 g/dL (32-36); Mean Corpuscular Hgb 27.7 pg (27.0-32.0); Mean Corpuscular Volume 88.5 fL (81-99); Mean Platelet Vol. 10.6 fl (6.2-12.0); Monocyte# 0.51 X10^3/uL; Monocyte% 5.2 % (0-10); NRBC Flagged by Analyzer 0 % (0-5); Neutrophil # 7.13 X10^3/uL (2.7-7.7); Neutrophil % 73.4 % (47-70); Platelet Count 222 K/mm3 (150-450); RBC Distribution Width SD 48.3 fl (35.1-43.9); Red Blood Count 3.83 M/mm3 (4.2-5.4); White Blood Count 9.7 K/mm3 (4.4-11.0)
[2023-12-12 07:02] LABS: Bedside Glucose 181 mg/dL (74-106)
--- NOTE | 2023-12-12 07:29 | PCM.PN.HOSP ---
Reason for Visit Reason for Visit: Diagnoses Type 2 diabetes mellitus with diabetic polyneuropathy (12/07/23) Type 2 diabetes mellitus with foot ulcer (12/07/23) Type 2 diabetes mellitus with other skin complications (12/07/23) Type 2 diabetes mellitus with other specified complication (12/07/23) Peripheral vascular disease, unspecified (12/07/23) Cellulitis of right lower limb (12/07/23) Local infection of the skin and subcutaneous tissue, unspecified (12/07/23) Non-pressure chronic ulcer of other part of unspecified foot with unspecified severity (12/07/23) Non-pressure chronic 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 (12/07/23) Hallux valgus (acquired), right foot (12/07/23) Bunionette of right foot (12/07/23) Osteomyelitis, unspecified (12/07/23) 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 Trimble on 12/11/2023 Objective Data Objective Data Vital Signs: Vital Signs Temp Pulse Resp BP Pulse Ox O2 Del Method 97.8 F 67 16 146/73 H 96 Room Air 12/12/23 04:25 12/12/23 04:25 12/12/23 04:25 12/12/23 04:25 12/12/23 04:25 12/12/23 04:25 Oxygen Delivery Method Room Air Weight: 98.6 kg Body Mass Index (BMI) 37.3 Intake & Output: Intake and Output for Last 24 Hours 12/10/23 12/11/23 12/12/23 23:59 23:59 23:59 Intake Total 1660 / 1660 1077.75 / 1077.75 Output Total 1000 / 1000 Balance 660 / 660 1077.75 / 1077.75 Lab / Micro Data 12/12/23 06:30 12/12/23 06:30 Labs: Laboratory Results - last 24 hr 12/11/23 06:26: Sodium 143, Potassium 3.8, Chloride 114 H, Carbon Dioxide 23.0, Anion Gap 6, BUN 19 H, Creatinine 0.71, Estim Creat Clear Calc 90.10, Est GFR (MDRD) Af Amer 107, Est GFR (MDRD) Non-Af 88, BUN/Creatinine Ratio 26.9 H, Glucose 119 H, Calcium 8.8, Vancomycin Trough 23.6 H 12/11/23 10:57: POC Glucose 115 H 12/11/23 16:07: POC Glucose 149 H 12/11/23 18:30: Random Vancomycin 16.6 H 12/11/23 22:09: POC Glucose 241 H 12/12/23 06:30: WBC 9.7, RBC 3.83 L, Hgb 10.6 L, Hct 33.9 L, MCV 88.5, MCH 27.7, MCHC 31.3 L, RDW Std Deviation 48.3 H, RDW Coeff of Dutch 15.0 H, Plt Count 222, MPV 10.6, Immature Gran % (Auto) 0.700, Neut % (Auto) 73.4 H, Lymph % (Auto) 19.9, [place] % (Auto) 5.2, Eos % (Auto) 0.5, Baso % (Auto) 0.3, Absolute Neuts (auto) 7.1, Absolute Lymphs (auto) 1.94, Nucleated RBC % 0 12/12/23 06:41: POC Glucose 181 H Micro: Microbiology 12/07/23 17:56 Blood Culture (Wb) - Anticubital Right Blood Culture - Preliminary No growth in 48 hours. Radiography Diagnostic Testing: Radiology Impression Foot X-Ray 12/11/23 12:45 IMPRESSION: Intraoperative imaging provided for resection of the midportion of the fifth metatarsal as well as the fifth toe. Electronically Signed: William Hines MD at 15:35 EDT , Physical Exam Narrative GENERAL: cooperative HEENT: Atraumatic; normocephalic EYES; Anicteric, Normal Conjunctiva NECK; supple, normal thyroid, RESPIRATORY: Diminished to auscultation CARDIOVASCULAR: Regular S1 S2, GI: soft, normoactive bowel sounds, : No Renal angle tenderness; EXTREMITIES: Right foot in surgical dressing MUSCULOSKELETAL: no muscle wasting NEURO: Awake; no lateralizing signs. SKIN: No Rash PSYCH; Flat affect Assessment & Plan Assessment/Plan (1) Diabetic infection of right foot: PLAN: Plan Patient is a 63-year-old lady with history of diabetes mellitus type 2 admitted with right fourth wound with cellulitis. MRI obtained did demonstrate osteomyelitis of the fifth metatarsal head and proximal phalanx with probable septic joint at the fifth MTP joint. 1. Diabetic foot infection ? Patient presented with right foot wound with cellulitis imaging studies demonstrated steomyelitis of the fifth metatarsal head and proximal phalanx with probable septic joint at the fifth MTP joint.. Patient started on broad-spectrum antibiotic therapy consult placed to podiatry plan is for patient to undergo surgical intervention by podiatry on 12/11/2023 ? 12/10/2023; pain remains controlled. Patient surgical intervention scheduled for 12/11/2023 ? 12/11/2023; patient scheduled to undergo surgical intervention ? 12/12/2023;Patient underwent Partial fifth ray amputation right foot; Incision and drainage with debridement of necrotic tissue right foot, Incision of bone cortex right foot ; Debridement of ulceration to the level of muscle right foot, Tissue rearrangement/skin flap right foot by Dr. Trimble on 12/11/2023. Patient has been seen by Dr. Soto with infectious disease his notes and recommendations including antibiotic adjustment noted 2. Peripheral vascular disease next Doppler/PVR waveforms obtained did show distal SFA/popliteal and infrapopliteal disease. Consult placed Dr. Figueroa, vascular surgeon 3. 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 Coronary artery disease ? Status post CABG patient is on guideline directed medical therapy 5. Paroxysmal atrial fibrillation ? Rate controlled on systemic anticoagulation with apixaban 6. Diabetes mellitus type II -patient's oral hypoglycemics held. Placed on long acting insulin, Accu-Cheks a.c. and at bedtime and covered with sliding scale insulin 7. Hypertension ? Blood pressure controlled, home medications continued with dose adjustment as needed 8. Dyslipidemia ?Patient is on statin therapy, continued at home dose 9. Class I obesity with BMI of 34.7 ? Complicating care weight loss advised 10. Hypothyroidism ? Patient is on levothyroxine home dose continued 11. DVT prophylaxis ? Enoxaparin 12. Anemia ? Secondary to chronic disorder monitoring H&H and transfuse if patient becomes symptomatic or hemoglobin falls below 7 Time spent in the patient's overall evaluation,decision-making process, review of diagnostic data, adjustment of management, discussion with other providers, nursing nursing and ancillary staff involved in patient's care documentation, 36 Minutes Charges/Coding Visit Charges Inpatient E&M: 02741 Subs Hosp L2
[2023-12-12 07:35] LABS: Anion Gap 5 (5-15); BUN 20 mg/dL (7-18); BUN/Creat Ratio 25.5 RATIO (10-20); Calcium,Total 8.8 mg/dL (8.5-10.1); Chloride 111 mmol/L (98-107); Creatinine, Serum 0.78 mg/dL (0.55-1.02); EST Glomerular Filtration Rate 79 mL/min (>60); Est Glom Filt Rate - Afr Amer 95 mL/min (>60); Estimated Creatinine Clearance 83.12 ml/min; Glucose 194 mg/dL (74-106); Potassium 4.4 mmol/L (3.5-5.1); Sodium Level 140 mmol/L (136-145)
[2023-12-12] MEDS: Insulin Lispro 100 UNIT/ML INSULN.PEN 10 UNIT SC ×3 (08:47→17:24)
[2023-12-12] MEDS: Insulin Glargine-YFGN 100 UNIT/ML Pen 40 UNIT SC (08:49)
[2023-12-12 08:50] VITALS: PULSE 69
[2023-12-12] MEDS: Metoprolol(XL)Succ 100 MG Tablet PO (08:50)
[2023-12-12] MEDS: Atorvastatin Calcium 40 MG Tablet PO (08:51)
[2023-12-12] MEDS: amLODIPine 10 MG Tablet PO (08:51)
[2023-12-12] MEDS: Enoxaparin 40 MG/0.4 ML Syringe SC (08:51)
[2023-12-12] MEDS: Losartan Potassium 50 MG Tablet PO (08:51)
[2023-12-12 08:58] VITALS: BP 189/83; PULSE 69; RESP 16; TEMP 36.5; O2SAT 100
[2023-12-12] MEDS: Nystatin Powder 15gm Bottle 1 APPLIC TOPICAL ×2 (10:07→21:40)
[2023-12-12] MEDS: Senna/Docusate Sodium 1 Tablet 2 TABLET PO (10:07)
[2023-12-12] MEDS: Ceftriaxone 2 GM in 0.9% Normal Saline (50mL MB+) 50 ML IV (10:07)
--- NOTE | 2023-12-12 10:20 | WOUNDNOTE ---
Dressing is to remain in place today with plan to change again tomorrow.
[2023-12-12 11:21] LABS: Bedside Glucose 202 mg/dL (74-106)
[2023-12-12 11:35] VITALS: BP 127/76; PULSE 72; RESP 16; TEMP 36.7; O2SAT 98
--- NOTE | 2023-12-12 11:36 | CT_ITS ---
STUDY: CTA OF THE ABDOMINAL AORTA AND BILATERAL LOWER EXTREMITIES REASON FOR EXAM: Female, 63 years old. RLE atherosclerosis with ulceration. Recent amputation of the fifth toe. RADIATION DOSAGE (If Supplied By Facility): CTDIvol = ( 9.15 ) mGy, DLP = ( 1508.57 ) mGycm TECHNIQUE: Axial CT angiography multi-detector data acquisition was obtained from the dome of the liver to the level of the ankles following intravenous administration of IV 100mL Isovue-370. Axial images and MIP images were reconstructed from the axial data set. Post-processing of the angiographic images was performed, with multiplanar reformation and 3D reconstruction. Individualized dose optimization techniques were used for this CT. TECHNICAL QUALITY: Good COMPARISON: None. Descriptors of Narrowing: None (0%) Mild (< 50%) Moderate (50-70%) Severe (70-90%) Subtotal/Total Occlusion (90-100%) Non-Evaluable (technically non-diagnostic FINDINGS: Fatty obliteration of the liver. Small gallstones are seen along the dependent portion of the gallbladder lumen. Abdominal aorta: Atherosclerotic plaque formation of the distal abdominal aorta without evidence of aneurysmal formation. Celiac and superior mesenteric arteries: Nonstenotic calcific plaque at the origin of the superior mesenteric artery. Inferior mesenteric artery: No demonstrated narrowing. Right renal artery(arteries): No demonstrated narrowing. Left renal artery(arteries): No demonstrated narrowing. Right common iliac artery: Nonstenotic calcific plaque. Right external iliac artery: No demonstrated narrowing. Right internal iliac artery: No demonstrated narrowing. Left common iliac artery: No demonstrated narrowing. Left external iliac artery: No demonstrated narrowing. Left internal iliac artery: No demonstrated narrowing. RIGHT LOWER EXTREMITY Right common femoral artery: No demonstrated narrowing. Right profundus femoris: No demonstrated narrowing. Right superficial femoral: Minimal plaque in the mid and distal portion of the superficial femoral artery. Right popliteal artery: No demonstrated narrowing. Right tibioperoneal trunk: No demonstrated narrowing. Right anterior tibial artery: No demonstrated narrowing. Right posterior tibial artery: Distal portion is not visualized. Right peroneal artery: Not visualized. LEFT LOWER EXTREMITY Left common femoral artery: Nonstenotic calcific plaque. Left profundus femoris: No demonstrated narrowing. Left superficial femoral: No demonstrated narrowing. Left popliteal artery: No demonstrated narrowing. Left tibioperoneal trunk: Marked degree of atherosclerotic changes. Left anterior tibial artery: Not seen Left posterior tibial artery: Not seen Left peroneal artery: Patent although dense calcific plaques are seen in its proximal portion. CT/CTA Abd w/Runoff W/WO Contrast IMPRESSION: 1 vessel runoff in both lower extremities. Marked disease of the left tibioperoneal trunk. Electronically Signed: William Hines MD at 13:51 EDT ,
--- NOTE | 2023-12-12 11:38 | EX.PCM.CON.S ---
Assessment & Plan Assessment/Plan (1) Peripheral arterial disease: PLAN: R GARCÍA 0.87 by DP and good bleeding was noted at the time of podiatry intervention which is reassuring. Given diabetic status, more likely to have distal tibial disease. At this time, do not anticipate vascular intervention during this admission; however, will obtain CTA with runoff to further evaluate her RLE atherosclerosis. Anticipate closely monitoring and intervention as needed on an outpatient basis. HPI Consult Data Date of Consult: 12/12/23 HPI Narrative HPI Narrative: JOSH GRAY, is a 63 F who presented to the [facility] ER on 12/07/23 with infected R 5th metatarsal ulceration. She was admitted for IV antibiotics and surgical management. She had right partial 5th toe amputation by Dr. Trimble 12/11/23. Dr. Trimble noted good bleeding at the time of the surgery. She has previously been seen in our office for PAD (no wounds at that time) but has not been seen in over 1 year. Her most recent arterial studies were 10/13/23 showing: R GARCÍA (PT) 0.39, (DP) 0.87, TBI 0.37, mono/biphasic waveforms; L GARCÍA (PT) 0.26 (DP) 0.41, TBI 0.19, monophasic waveforms. She notes fatigue in her legs but denies any pain with activity or at rest, other than at the surgical site. She is diabetic, A1c 8.2. She does not smoke. She is chronically anticoagulated with Eliquis due to Afib and history is otherwise significant for STEMI/CAD s/p CABG and hx of CVA. FOR[facility]LY [facility] Medical History Hypothyroidism Diabetes Kidney stones Non-smoker CPAP (continuous positive airway pressure) dependence Asthma Myocardial infarct Atrial fibrillation Osteomyelitis Left rotator cuff tear Impingement of left shoulder Left shoulder pain PAF (paroxysmal atrial fibrillation) Diabetic retinopathy associated with type 2 diabetes mellitus Obesity Skin lesion of left lower extremity Dysarthria Dyspnea Chronic diastolic (congestive) heart failure MARLEN (obstructive sleep apnea) Slurred speech CVA (cerebral vascular accident) (12/14/18) Essential (primary) hypertension Type 2 diabetes mellitus Incontinent of urine neck/back pain Limb weakness Anemia Shoulder pain Arthritis History of deep venous thrombosis (DVT) of distal vein of left lower extremity (04/13/13) 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) Hyperlipidemia History of non-ST elevation myocardial infarction (NSTEMI) (04/08/13) History of non-Hodgkin's lymphoma (2012) Polycystic ovaries IBS (irritable bowel syndrome) Home Medications ?Medication ?Instructions ?Recorded ?Last Taken ?Type albuterol sulfate 90 mcg/actuation 2 puff inhalation Q6H PRN Sob &/Or 08/14/19 04/05/23 10:00 History aerosol inhaler (Proventil HFA) Wheezing metformin 1,000 mg tablet 1,000 mg PO BID type II diabetes 04/02/20 12/06/23 History pen needle, diabetic 31 gauge x #1,200 ea 04/02/20 Unknown History 06/28 losartan 50 mg tablet 50 mg PO DAILY bp #90 tabs 07/26/21 12/06/23 Rx flash glucose sensor (FreeStyle #1 ea 10/19/21 Unknown History Moses 14 Day Sensor kit) insulin degludec 100 unit/mL (3 50 unit subcut DAILY type II 10/19/21 12/06/23 History mL) subcutaneous pen (Tresiba diabetes FlexTouch U-100 insulin) amlodipine 10 mg tablet 10 mg PO DAILY #30 tabs 04/07/23 Unknown Rx apixaban 5 mg tablet (Eliquis) See Rx Instructions .Route 04/10/23 12/06/23 Rx .COMPLEX #60 TABLETS atorvastatin 40 mg tablet 40 mg PO DAILY #90 TABLETS 10/06/23 12/06/23 Rx insulin lispro 100 unit/mL 30 unit subcut TIDCM 12/07/23 12/06/23 History subcutaneous pen (Humalog KwikPen (U-100) Insulin) levothyroxine 25 mcg tablet 25 mcg PO DAILY 12/07/23 12/06/23 History metoprolol succinate 100 mg 100 mg PO DAILY 12/07/23 12/06/23 History tablet,extended release 24 hr Allergy/AdvReac Type Severity Reaction Status Date / Time Penicillins Allergy Severe Rash Verified 12/07/23 12:29 grass pollen Allergy Intermediate Other Verified 12/07/23 12:29 tree and shrub pollen Allergy Intermediate Other Verified 12/07/23 12:29 lisinopril AdvReac Intermediate Other Verified 12/07/23 12:29 hydrocodone bitartrate (From AdvReac Mild Unknown Verified 12/07/23 12:29 Vicodin) losartan AdvReac Heart Burn Verified 12/07/23 12:29 Family History Father , 65 Diabetes Hypertension cabg Mother , Age 65 Hypertension Renal failure Sister Cancer Sister Diabetes Cardiomegaly Surgical History History of appendectomy Hx of CABG History of left heart catheterization (07/26/18) H/O coronary artery bypass surgery (04/10/13) Atherosclerotic heart disease of [place] coronary artery without angina pectoris Social History household members: children Smoking Status: Never smoker alcohol intake: never substance use type: does not use caffeine: Yes Type: coffee Number of servings: 2 Physical Exam Const alert, oriented x3 and no apparent distress General Appearance: cooperative HEENT normocephalic, head/scalp atraumatic and external nose normal Eyes General Eye: normal appearance of both eyes Neck General: normal visual inspection Resp normal respiratory effort and no retractions Effort and Inspection: able to speak in complete sentences Cardio Rate: regular rate Extremity Extremity Narrative: R foot with post-operative dressings in place Neuro CN's II-XII intact bilaterally Speech: speech normal Psych mental status grossly normal and affect normal Appearance: grossly normal Lab / Micro Data 12/12/23 06:30 12/12/23 06:30 Labs: Laboratory Results - last 24 hr 12/11/23 16:07: POC Glucose 149 H 12/11/23 18:30: Random Vancomycin 16.6 H 12/11/23 22:09: POC Glucose 241 H 12/12/23 06:30: WBC 9.7, RBC 3.83 L, Hgb 10.6 L, Hct 33.9 L, MCV 88.5, MCH 27.7, MCHC 31.3 L, RDW Std Deviation 48.3 H, RDW Coeff of Dutch 15.0 H, Plt Count 222, MPV 10.6, Immature Gran % (Auto) 0.700, Neut % (Auto) 73.4 H, Lymph % (Auto) 19.9, [place] % (Auto) 5.2, Eos % (Auto) 0.5, Baso % (Auto) 0.3, Absolute Neuts (auto) 7.1, Absolute Lymphs (auto) 1.94, Nucleated RBC % 0, Sodium 140, Potassium 4.4, Chloride 111 H, Carbon Dioxide 23.0, Anion Gap 5, BUN 20 H, Creatinine 0.78, Estim Creat Clear Calc 83.12, Est GFR (MDRD) Af Amer 95, Est GFR (MDRD) Non-Af 79, BUN/Creatinine Ratio 25.5 H, Glucose 194 H, Calcium 8.8 12/12/23 06:41: POC Glucose 181 H 12/12/23 11:02: POC Glucose 202 H Micro: Microbiology 12/11/23 Unknown Bone - 5th Toe Gram Stain - Final 12/11/23 Unknown Bone - 5th Toe Wound Culture - Preliminary Staphylococcus species 12/11/23 Unknown Tissue - 5th Metatarsal Bone Gram Stain - Final 12/11/23 Unknown Tissue - 5th Metatarsal Bone Wound Culture - Preliminary No growth-Final to follow Imaging Radiology Impression Foot X-Ray 12/11/23 12:45 IMPRESSION: Intraoperative imaging provided for resection of the midportion of the fifth metatarsal as well as the fifth toe. Electronically Signed: William Hines MD at 15:35 EDT , Foot X-Ray 12/11/23 15:45 IMPRESSION: Recent amputation of the fifth digit across the midshaft of the fifth metatarsal. Degenerative arthrosis of the first MTP joint with hallux valgus deformity. Plantar calcaneal spur. Electronically Signed: Chadd Joya MD at 9:14 EDT ,
--- NOTE | 2023-12-12 12:38 | NURSING ---
pt to ct scan
[2023-12-12 15:24] VITALS: BP 110/73; PULSE 74; RESP 16; TEMP 36.9; O2SAT 98
[2023-12-12 16:28] LABS: Bedside Glucose 261 mg/dL (74-106)
[2023-12-12] MEDS: Vancomycin HCl 1,750 MG in 0.9% Normal Saline (500mL Bag) 500 ML 250 MG IV (21:38)
[2023-12-12 21:42] VITALS: BP 150/67; PULSE 70; RESP 16; TEMP 36.8; O2SAT 99
[2023-12-12 22:26] LABS: Bedside Glucose 174 mg/dL (74-106)
[2023-12-13 04:19] LABS: Absolute Lymphocyte Count 3.03 X10^3/uL (0.83-4.51); Absolute Neutrophil Count 8.5 X10^3/uL (2.0-7.7); Basophil# 0.06 X10^3/uL; Basophil% 0.5 % (0-1); Eosinophil# 0.66 X10^3/uL; Eosinophils% 5.1 % (0-5); Hemoglobin 10.3 g/dL (12.0-15.0); Lymphocyte # 3.03 X10^3/ul (0.83-4.51); Lymphocyte % 23.2 % (19-41); Mean Corp Hgb Conc 32.2 g/dL (32-36); Mean Corpuscular Hgb 28.1 pg (27.0-32.0); Mean Corpuscular Volume 87.4 fL (81-99); Mean Platelet Vol. 10.7 fl (6.2-12.0); Monocyte% 5.4 % (0-10); NRBC Flagged by Analyzer 0 % (0-5); Neutrophil # 8.49 X10^3/uL (2.7-7.7); Neutrophil % 64.9 % (47-70); Platelet Count 244 K/mm3 (150-450); RBC Distribution Width CV 15.3 % (11.6-14.6); Red Blood Count 3.66 M/mm3 (4.2-5.4); White Blood Count 13.1 K/mm3 (4.4-11.0)
[2023-12-13 04:52] LABS: Anion Gap 5 (5-15); BUN 22 mg/dL (7-18); BUN/Creat Ratio 24.8 RATIO (10-20); Chloride 110 mmol/L (98-107); Creatinine, Serum 0.89 mg/dL (0.55-1.02); EST Glomerular Filtration Rate 68 mL/min (>60); Est Glom Filt Rate - Afr Amer 82 mL/min (>60); Estimated Creatinine Clearance 72.85 ml/min; Glucose 111 mg/dL (74-106); Potassium 3.8 mmol/L (3.5-5.1); Sodium Level 139 mmol/L (136-145)
[2023-12-13] MEDS: Acetaminophen 500 MG Tablet 1000 MG PO ×3 (05:52→20:59)
[2023-12-13] MEDS: metroNIDAZOLE 500 MG Tablet PO ×3 (05:53→20:59)
[2023-12-13] MEDS: Levothyroxine 25 MCG TABLET PO (05:53)
[2023-12-13 05:57] VITALS: BP 135/73; PULSE 76; RESP 16; TEMP 36.8; O2SAT 97
[2023-12-13 06:58] LABS: Bedside Glucose 110 mg/dL (74-106)
--- NOTE | 2023-12-13 07:21 | PN.HOSP_ITS ---
Reason for Visit Reason for Visit: Diagnoses Type 2 diabetes mellitus with diabetic polyneuropathy (12/07/23) Type 2 diabetes mellitus with foot ulcer (12/07/23) Type 2 diabetes mellitus with other skin complications (12/07/23) Type 2 diabetes mellitus with other specified complication (12/07/23) Peripheral vascular disease, unspecified (12/07/23) Cellulitis of right lower limb (12/07/23) Local infection of the skin and subcutaneous tissue, unspecified (12/07/23) Non-pressure chronic ulcer of other part of unspecified foot with unspecified severity (12/07/23) Non-pressure chronic 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 (12/07/23) Hallux valgus (acquired), right foot (12/07/23) Bunionette of right foot (12/07/23) Osteomyelitis, unspecified (12/07/23) terminal manager (current) use of insulin (12/07/23) Subjective Subjective Patient wound cultures so far positive for Staphylococcus pseudintermediu Objective Data Objective Data Vital Signs: Vital Signs Temp Pulse Resp BP Pulse Ox O2 Del Method 98.3 F 76 16 135/73 H 97 Room Air 12/13/23 05:57 12/13/23 05:57 12/13/23 05:57 12/13/23 05:57 12/13/23 05:57 12/13/23 05:57 Oxygen Delivery Method Room Air Weight: 98.6 kg Body Mass Index (BMI) 37.3 Intake & Output: Intake and Output for Last 24 Hours 12/11/23 12/12/23 12/13/23 23:59 23:59 23:59 Intake Total 1077.75 / 1077.75 1385 / 1385 Balance 1077.75 / 1077.75 1385 / 1385 Lab / Micro Data 12/13/23 03:48 12/13/23 03:48 Labs: Laboratory Results - last 24 hr 12/12/23 06:30: Sodium 140, Potassium 4.4, Chloride 111 H, Carbon Dioxide 23.0, Anion Gap 5, BUN 20 H, Creatinine 0.78, Estim Creat Clear Calc 83.12, Est GFR (MDRD) Af Amer 95, Est GFR (MDRD) Non-Af 79, BUN/Creatinine Ratio 25.5 H, G lucose 194 H, Calcium 8.8 12/12/23 11:02: POC Glucose 202 H 12/12/23 16:11: POC Glucose 261 H 12/12/23 21:40: POC Glucose 174 H 12/13/23 03:48: WBC 13.1 H, RBC 3.66 L, Hgb 10.3 L, Hct 32.0 L, MCV 87.4, MCH 28.1, MCHC 32.2, RDW Std Deviation 49.0 H, RDW Coeff of Dutch 15.3 H, Plt Count 244, MPV 10.7, Immature Gran % (Auto) 0.900, Neut % (Auto) 64.9, Lymph % (Auto) 23.2, Placer % (Auto) 5.4, Eos % (Auto) 5.1 H, Baso % (Auto) 0.5, Absolute Neuts (auto) 8.5 H, Absolute Lymphs (auto) 3.03, Nucleated RBC % 0, Sodium 139, Potassium 3.8, Chloride 110 H, Carbon Dioxide 24.0, Anion Gap 5, BUN 22 H, Creatinine 0.89, Estim Creat Clear Calc 72.85, Est GFR (MDRD) Af Amer 82, Est GFR (MDRD) Non-Af 68, BUN/Creatinine Ratio 24.8 H, Glucose 111 H, Calcium 9.0 12/13/23 06:34: POC Glucose 110 H Micro: Microbiology 12/11/23 Unknown Bone - 5th Toe Gram Stain - Final 12/11/23 Unknown Bone - 5th Toe Wound Culture - Preliminary Staphylococcus species 12/11/23 Unknown Tissue - 5th Metatarsal Bone Gram Stain - Final 12/11/23 Unknown Tissue - 5th Metatarsal Bone Wound Culture - Preliminary No growth-Final to follow 12/07/23 17:56 Blood Culture (Wb) - Anticubital Right Blood Culture - Preliminary No growth in 48 hours. Radiography Diagnostic Testing: Radiology Impression Foot X-Ray 12/11/23 15:45 IMPRESSION: Recent amputation of the fifth digit across the midshaft of the fifth metatarsal. Degenerative arthrosis of the first MTP joint with hallux valgus deformity. Plantar calcaneal spur. Electronically Signed: Chadd Joya MD at 9:14 EDT , Abdomen/Pelvis CTA 12/12/23 11:36 IMPRESSION: 1 vessel runoff in both lower extremities. Marked disease of the left tibioperoneal trunk. Electronically Signed: William Hines MD at 13:51 EDT , Physical Exam Narrative GENERAL: cooperative HEENT: Atraumatic; normocephalic EYES; Anicteric, Normal Conjunctiva NECK; supple, normal thyroid, RESPIRATORY: Diminished to auscultation CARDIOVASCULAR: Regular S1 S2, GI: soft, normoactive bowel sounds, : No Renal angle tenderness; EXTREMITIES: Right foot in surgical dressing MUSCULOSKELETAL: no muscle wasting NEURO: Awake; no lateralizing signs. SKIN: No Rash PSYCH; Flat affect Assessment & Plan Assessment/Plan (1) Diabetic infection of right foot: PLAN: Plan Patient is a 63-year-old lady with history of diabetes mellitus type 2 admitted with right fourth wound with cellulitis. MRI obtained did demonstrate osteomyelitis of the fifth metatarsal head and proximal phalanx with probable septic joint at the fifth MTP joint. 1. Diabetic foot infection ? Patient presented with right foot wound with cellulitis imaging studies demonstrated steomyelitis of the fifth metatarsal head and proximal phalanx with probable septic joint at the fifth MTP joint.. Patient started on broad- spectrum antibiotic therapy consult placed to podiatry plan is for patient to undergo surgical intervention by podiatry on 12/11/2023 ? 12/10/2023; pain remains controlled. Patient surgical intervention scheduled for 12/11/2023 ? 12/11/2023; patient scheduled to undergo surgical intervention ? 12/12/2023;Patient underwent Partial fifth ray amputation right foot; Incision and drainage with debridement of necrotic tissue right foot, Incision of bone cortex right foot ; Debridement of ulceration to the level of muscle right foot, Tissue rearrangement/skin flap right foot by Dr. Trimble on 12/11/2023. Patient has been seen by Dr. Soto with infectious disease his notes and recommendations including antibiotic adjustment noted -12/13/2023;Patient wound cultures so far positive for Staphylococcus pseudintermediu. Final antibiotic therapy deferred to Dr. Soto 2. Peripheral vascular disease next Doppler/PVR waveforms obtained did show distal SFA/popliteal and infrapopliteal disease. Consult placed Dr. Figueroa, vascular surgeon 3. 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 Coronary artery disease ? Status post CABG patient is on guideline directed medical therapy 5. Paroxysmal atrial fibrillation ? Rate controlled on systemic anticoagulation with apixaban 6. Diabetes mellitus type II -patient's oral hypoglycemics held. Placed on long acting insulin, Accu-Cheks a.c. and at bedtime and covered with sliding scale insulin 7. Hypertension ? Blood pressure controlled, home medications continued with dose adjustment as needed 8. Dyslipidemia ?Patient is on statin therapy, continued at home dose 9. Class I obesity with BMI of 34.7 ? Complicating care weight loss advised 10. Hypothyroidism ? Patient is on levothyroxine home dose continued 11. DVT prophylaxis ? Enoxaparin 12. Anemia ? Secondary to chronic disorder monitoring H&H and transfuse if patient becomes symptomatic or hemoglobin falls below 7 13. Physical deconditioning ? Requested for PT OT eval and director social service to assist with discharge planning Time spent in the patient's overall evaluation,decision-making process, review of diagnostic data, adjustment of management, discussion with other providers, nursing nursing and ancillary staff involved in patient's care documentation, 36 Minutes Charges/Coding Visit Charges Inpatient E&M: 24653 Subs Hosp L2
--- NOTE | 2023-12-13 07:49 | PCM.PROGNOTE ---
Subjective Subjective Patient seen early this a.m. resting in bed with right foot elevated. She does note difficulty maintaining nonweightbearing status secondary to shoulder injury. She is utilizing walker but is primarily weightbearing to the right heel. States she is feeling better since surgery, denies pain. Is voiding without issue. Denies further complaints. Objective Data Objective Data Vital Signs: Vital Signs Temp Pulse Resp BP Pulse Ox O2 Del Method 98.3 F 76 16 135/73 H 97 Room Air 12/13/23 05:57 12/13/23 05:57 12/13/23 05:57 12/13/23 05:57 12/13/23 05:57 12/13/23 05:57 Oxygen Delivery Method Room Air Weight: 98.6 kg Body Mass Index (BMI) 37.3 Intake & Output: Intake and Output for Last 24 Hours 12/11/23 12/12/23 12/13/23 23:59 23:59 23:59 Intake Total 1077.75 / 1077.75 1385 / 1385 Balance 1077.75 / 1077.75 1385 / 1385 Lab / Micro Data 12/13/23 03:48 12/13/23 03:48 Labs: Laboratory Results - last 24 hr 12/12/23 11:02: POC Glucose 202 H 12/12/23 16:11: POC Glucose 261 H 12/12/23 21:40: POC Glucose 174 H 12/13/23 03:48: WBC 13.1 H, RBC 3.66 L, Hgb 10.3 L, Hct 32.0 L, MCV 87.4, MCH 28.1, MCHC 32.2, RDW Std Deviation 49.0 H, RDW Coeff of Dutch 15.3 H, Plt Count 244, MPV 10.7, Immature Gran % (Auto) 0.900, Neut % (Auto) 64.9, Lymph % (Auto) 23.2, [place] % (Auto) 5.4, Eos % (Auto) 5.1 H, Baso % (Auto) 0.5, Absolute Neuts (auto) 8.5 H, Absolute Lymphs (auto) 3.03, Nucleated RBC % 0, Sodium 139, Potassium 3.8, Chloride 110 H, Carbon Dioxide 24.0, Anion Gap 5, BUN 22 H, Creatinine 0.89, Estim Creat Clear Calc 72.85, Est GFR (MDRD) Af Amer 82, Est GFR (MDRD) Non-Af 68, BUN/Creatinine Ratio 24.8 H, Glucose 111 H, Calcium 9.0 12/13/23 06:34: POC Glucose 110 H Micro: Microbiology 12/11/23 Unknown Bone - 5th Toe Gram Stain - Final 12/11/23 Unknown Bone - 5th Toe Wound Culture - Preliminary Staphylococcus species 12/11/23 Unknown Tissue - 5th Metatarsal Bone Gram Stain - Final 12/11/23 Unknown Tissue - 5th Metatarsal Bone Wound Culture - Preliminary No growth-Final to follow 12/07/23 17:56 Blood Culture (Wb) - Anticubital Right Blood Culture - Preliminary No growth in 48 hours. Radiography Diagnostic Testing: Radiology Impression Foot X-Ray 12/11/23 15:45 IMPRESSION: Recent amputation of the fifth digit across the midshaft of the fifth metatarsal. Degenerative arthrosis of the first MTP joint with hallux valgus deformity. Plantar calcaneal spur. Electronically Signed: Chadd Joya MD at 9:14 EDT , Abdomen/Pelvis CTA 12/12/23 11:36 IMPRESSION: 1 vessel runoff in both lower extremities. Marked disease of the left tibioperoneal trunk. Electronically Signed: William Hines MD at 13:51 EDT , Physical Exam Const alert, oriented x3 and no apparent distress General Appearance: cooperative Eyes General Eye: normal appearance of both eyes Neck General: normal visual inspection Lymph Lymphatic: no lymphedema noted Lymphatic Narrative: Acute cellulitis with lymphangitic streaking dorsal foot and anterior distal tibia Resp normal respiratory effort Cardio regular rate and regular rhythm Extremity no calf tenderness Extremity Narrative: Right lower extremity: Vascular: DP and PT pulses nonpalpable. Doppler demonstrates monophasic DP and PT. CFT is less than 5 seconds to the digits. Hair growth is absent to digits. Normal temperature gradient noted proximally with increased warmth secondary to erythema consistent with acute cellulitis to dorsal foot and fifth digit. Neurologic: Gross sensation is intact to the foot. Protective sensation is absent secondary to diabetic peripheral polyneuropathy. Musculoskeletal: Muscle strength 5 of 5 age-appropriate. There is an HAV deformity noted with lateral deviation of the hallux in addition to tailor bunion deformity with plantar foot ulceration of the fifth metatarsal head. No pain to palpation about the ulcerative site however fifth digit is painful secondary to acute cellulitis. There is decreased range of motion of the ankle joint in dorsiflexion with the knee extended without pain or crepitus, full range of motion with knee flexed. No calf pain to palpation. Dermatologic: Erythema is decreasing to the dorsal foot. Sutures are intact dorsal s/p partial fifth ray amputation with skin flap and sutures also intact to plantar skin secondary to skin flap closure over the previous ulcerative site. Skin flap appears healthy. Skin skin turgor normal and no jaundice Neuro moves all extremities Assessment & Plan Assessment/Plan (1) Osteomyelitis: QUALIFIERS: Laterality: right Osteomyelitis location: foot Osteomyelitis type: unspecified type Qualified Code(s): M86.9 - Osteomyelitis, unspecified (2) Cellulitis of foot, right: (3) Non-pressure chronic 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: (4) Diabetes mellitus with diabetic polyneuropathy: QUALIFIERS: Diabetes mellitus terminal make up operator insulin use: with terminal make up operator use Diabetes mellitus type: type 2 Qualified Code(s): E11.42 - Type 2 diabetes mellitus with diabetic polyneuropathy; Z79.4 - manager long term care (current) use of insulin (5) Diabetic infection of right foot: (6) Type 2 diabetes mellitus with foot ulcer: QUALIFIERS: Diabetes mellitus terminal make up operator insulin use: with intermediate use Qualified Code(s): E11.621 - Type 2 diabetes mellitus with foot ulcer; L97.509 - Non-pressure chronic ulcer of other part of unspecified foot with unspecified severity; Z79.4 - alf (current) use of insulin PLAN: Plan Patient seen and evaluated She is s/p partial fifth ray amputation right foot, I&D with wide debridement of necrotic tissue, incision of bone cortex, debridement of ulceration to the level of muscle subfifth metatarsal head, and tissue rearrangement/skin flap right foot. DOS 12/11/2023. POD #2 Right foot: Erythema is decreasing to the dorsal foot. Sutures are intact dorsal s/p partial fifth ray amputation with skin flap and sutures also intact to plantar skin secondary to skin flap closure over the previous ulcerative site. Skin flap appears healthy. LEAS 10/13/23: Right GARCÍA 0.87, moderate arterial insufficiency; Doppler and PVR waveforms demonstrate infra popliteal disease. Left GARCÍA 0.41, severe arterial insufficiency. Doppler/PVR waveforms reveal distal SFA/popliteal and infrapopliteal disease. Patient continues to follow with Dr. Figueroa, vascular surgeon and did undergo CTA with runoff 12/12/2023. WBC currently 13.1 secondary to postsurgical intervention. Recent HbgA1c 8.2% on 10/13/2023 Radiographs obtained 12/07/2023 demonstrate soft tissue swelling. MRI was ordered for further evaluation 12/07/2023. MRI demonstrated acute osteomyelitis of the fifth metatarsal head, proximal phalanx, and distal phalanx of the fifth digit in addition to inflammation of the joint capsule and local soft tissues. Surgical cultures: Swab cultures aerobic anaerobic, awaiting results; tissue fifth metatarsal, demonstrates no growth; bone fifth digit and bone fifth metatarsal, preliminary demonstrate staph species Surgical dressings: Incision sites dressed with Betadine soaked Adaptic, 4 x 4 gauze, ABD, Kerlix, and 4 inch James wrap rolled onto the foot. Nursing may reinforce for strikethrough. Medicine team currently following for medical management, they are greatly appreciated Infectious disease following for antibiotic management Vascular surgery following for mild to moderate arterial occlusive disease right lower extremity, severe arterial occlusive disease left lower extremity. Wound nurse following for assisting in dressing changes She is to continue to elevate right lower extremity/foot at all times for postoperative edema control Due to difficulty with her shoulder complicating nonweightbearing status she will now be permitted to bear weight to the right heel only with the assistance of a walker. If possible may use knee scooter for nonweightbearing compliance at her skilled facility. May change dressing every other day. Upon discharge patient will go to SNF for continued care will continue to follow with me in wound care center for postoperative care. Pavel Trimble Jr. D.P.M. [facility] [phone]
--- NOTE | 2023-12-13 08:14 | WOUNDNOTE ---
wound photo: right foot
--- NOTE | 2023-12-13 08:15 | WOUNDNOTE ---
wound photo: right foot
[2023-12-13 08:35] VITALS: PULSE 71
[2023-12-13 08:41] VITALS: BP 165/82; PULSE 71; RESP 18; TEMP 36.8; O2SAT 97
[2023-12-13] MEDS: Ceftriaxone 2 GM in 0.9% Normal Saline (50mL MB+) 50 ML IV (10:42)
[2023-12-13] MEDS: 0.9% Saline Lock 10 ML Syringe IV ×2 (10:42→23:21)
[2023-12-13] MEDS: Insulin Lispro 100 UNIT/ML INSULN.PEN 10 UNIT SC ×3 (10:43→17:33)
[2023-12-13] MEDS: DAKIN'S SOL HALF STRENGTH (=0.25%) TOPICAL (10:44)
[2023-12-13] MEDS: Losartan Potassium 50 MG Tablet PO (10:44)
[2023-12-13] MEDS: Atorvastatin Calcium 40 MG Tablet PO (10:45)
[2023-12-13] MEDS: Insulin Glargine-YFGN 100 UNIT/ML Pen 40 UNIT SC (10:45)
[2023-12-13 10:46] VITALS: PULSE 80
[2023-12-13] MEDS: Nystatin Powder 15gm Bottle 1 APPLIC TOPICAL ×2 (10:46→21:00)
[2023-12-13] MEDS: Metoprolol(XL)Succ 100 MG Tablet PO (10:46)
[2023-12-13] MEDS: Enoxaparin 40 MG/0.4 ML Syringe SC (10:46)
[2023-12-13] MEDS: amLODIPine 10 MG Tablet PO (10:47)
[2023-12-13 12:15] LABS: Bedside Glucose 183 mg/dL (74-106)
--- NOTE | 2023-12-13 12:24 | CASEMGMT ---
Social Work Spoke with [facility] through patient's [facility] benefit. , extension [phone]. Lynn reports precert request for SNF is being sent to medical insurance biller for review. Lynn did ask about status of IV ATB at discharge, and any barriers to discharge. Updated that IV ATBs are unknown currently as cultures are still pending. Updated that from therapy notes it appears patient has a hard time with maintaining NWB status, and lives in a bi-level home, so this could pose a challenge to management at home. Plan: [facility], pending insurance precert, though precert is now with the medical insurance biller for review. -LARA Smith
[2023-12-13] MEDS: Insulin Lispro 100 UNIT/ML INSULN.PEN SC ×2 (13:06→21:03)
--- NOTE | 2023-12-13 15:20 | PN.ID_ITS ---
Physical Exam Narrative Feeling ok, discharge planned, no fever, no n/v/d. Const alert and no apparent distress Resp normal air movement and clear to auscultation bilaterally Cardio regular rate and regular rhythm GI soft to palpation, non-tender and non-distended Skin Skin Narrative: foot wrapped ID ID: Route of nutrition/ use of supplements: [] Nutritional Intake: [] IV Site: [] Kay Catheter: [] Assessment & Plan Assessment/Plan (1) Diabetic foot ulcer with osteomyelitis: PLAN: Now s/p partial R 5th ray amputation by Dr. Trimble. Wound cx 10/05/23 with providencia, GBS, strep mitis, eikenella, pasteurella, anaerobes. On vanc/ceftriaxone/flagyl. Reports tolerating other beta lactams in the past. Surg cx with MR-CoNS. Will write for 1 week po linezolid, cefdinir, and flagyl at discharge. Will follow prn, d/w adult protective caseworker (2) Diabetes mellitus with diabetic polyneuropathy: QUALIFIERS: Diabetes mellitus type: type 2 Diabetes mellitus penitentiary insulin use: with penitentiary use Qualified Code(s): E11.42 - Type 2 diabetes mellitus with diabetic polyneuropathy; Z79.4 - oysterman (current) use of insulin
[2023-12-13 15:42] VITALS: BP 139/81; PULSE 71; RESP 18; TEMP 36.7; O2SAT 96
--- NOTE | 2023-12-13 16:03 | CASEMGMT ---
Social Work- SW met with pt to provide updates on precert. Pt reports that she does not have any other place to go but home. Pt reports her son has a trailer, but has cats and she is allergic. Pt reports that there are no other family members that have single floor homes. Pt reports that her shoulder prevents her from being able to utilize upper body fully. SW will continue to provide updates. KRYSTINA Severino
[2023-12-13 20:03] LABS: Vancomycin, Trough Level 20.1 ug/mL (5.0-15.0)
--- NOTE | 2023-12-13 20:24 | PCM.RX.CS ---
Consult Antibiotic Management Pharmacy has been consulted to manage selected antibiotic: Vancomycin Type of Intervention Type of Consult: Follow-up Labs Labs: Sodium 139 mmol/L (136-145) 12/13/23 03:48 Potassium 3.8 mmol/L (3.5-5.1) 12/13/23 03:48 Chloride 110 mmol/L (98-107) H 12/13/23 03:48 Carbon Dioxide 24.0 mmol/L (21.0-32.0) 12/13/23 03:48 Anion Gap 5 (5-15) 12/13/23 03:48 BUN 22 mg/dL (7-18) H 12/13/23 03:48 Creatinine 0.89 mg/dL (0.55-1.02) 12/13/23 03:48 Est GFR (MDRD) Af Amer 82 mL/min (>60) 12/13/23 03:48 Est GFR (MDRD) Non-Af 68 mL/min (>60) 12/13/23 03:48 BUN/Creatinine Ratio 24.8 RATIO (10-20) H 12/13/23 03:48 Glucose 111 mg/dL (74-106) H 12/13/23 03:48 Vancomycin Trough 20.1 ug/mL (5.0-15.0) H 12/13/23 19:25 Random Vancomycin 16.6 ug/mL (0.0-15.0) H 12/11/23 18:30 Microbiology Microbiology: Microbiology 12/11/23 Unknown Bone - 5th Toe Gram Stain - Final 12/11/23 Unknown Bone - 5th Toe Wound Culture - Final Staphylococcus pseudintermediu 12/11/23 Unknown Bone - 5th Toe Anaerobic Culture - Preliminary Checking for anaerobes, further studies to follow. 12/11/23 Unknown Tissue - 5th Metatarsal Bone Gram Stain - Final 12/11/23 Unknown Tissue - 5th Metatarsal Bone Wound Culture - Preliminary No growth-Final to follow 12/11/23 Unknown Tissue - 5th Metatarsal Bone Anaerobic Culture - Preliminary Checking for anaerobes, further studies to follow. 12/07/23 17:56 Blood Culture (Wb) - Anticubital Right Blood Culture - Final No growth in 5 days. Goal Trough Goal Trough: 15-20 mcg/mL Pharmacy Plan for Drug Dosing Pharmacy Plan for Drug Dosing: VANCOMYCIN LEVEL RECEIVED Current Vancomycin Dose:1750mg IV Q24hr Number of Doses Received: 2 (of current regimen) Vancomycin Level: 20.1 Hours Since Last Dose: 22hr Renal Function: 0.89 Renal Function Trend: stable Lab/Micro: No new culture data Vancomycin Plan/Comments: patient had a trough drawn which resulted in a value of 20.1 (goal 15-20). The previous dose was given ~90min late, so trough appears just slightly elevated, and the true trough is likely around 19. Because of this, will decrease the dose slightly to 1500mg IV q24hr and start this several hours from the original time the dose was due. Will start 1500mg IV Q24h 12/13 @0000 Pending Level: 12/15/23 @2330, prior to 3rd dose of new regimen Pharmacy Service will continue to monitor and adjust dosing as required.
[2023-12-13 21:36] LABS: Bedside Glucose 186 mg/dL (74-106)
[2023-12-13] MEDS: Vancomycin HCl 1,500 MG in 0.9% Normal Saline (500mL Bag) 500 ML 250 MG IV (23:20)
[2023-12-13 23:42] VITALS: BP 143/83; PULSE 65; RESP 16; TEMP 36.8; O2SAT 95
[2023-12-14] MEDS: metroNIDAZOLE 500 MG Tablet PO ×2 (05:24→14:13)
[2023-12-14] MEDS: Levothyroxine 25 MCG TABLET PO (05:24)
[2023-12-14] MEDS: Acetaminophen 500 MG Tablet 1000 MG PO ×2 (05:25→14:13)
[2023-12-14 05:43] VITALS: BP 158/88; PULSE 73; RESP 16; TEMP 36.4; O2SAT 100
--- NOTE | 2023-12-14 07:49 | PCM.PN.HOSP ---
Reason for Visit Reason for Visit: Diagnoses Type 2 diabetes mellitus with diabetic polyneuropathy (12/07/23) Type 2 diabetes mellitus with foot ulcer (12/07/23) Type 2 diabetes mellitus with other skin complications (12/07/23) Type 2 diabetes mellitus with other specified complication (12/07/23) Peripheral vascular disease, unspecified (12/07/23) Cellulitis of right lower limb (12/07/23) Local infection of the skin and subcutaneous tissue, unspecified (12/07/23) Non-pressure chronic ulcer of other part of unspecified foot with unspecified severity (12/07/23) Non-pressure chronic 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 (12/07/23) Hallux valgus (acquired), right foot (12/07/23) Bunionette of right foot (12/07/23) Osteomyelitis, unspecified (12/07/23) USP (current) use of insulin (12/07/23) Subjective Subjective Patient awaiting transfer to a [facility] facility Objective Data Objective Data Vital Signs: Vital Signs Temp Pulse Resp BP Pulse Ox O2 Del Method 97.6 F L 73 16 158/88 H 100 Room Air 12/14/23 05:43 12/14/23 05:43 12/14/23 05:43 12/14/23 05:43 12/14/23 05:43 12/14/23 05:43 Oxygen Delivery Method Room Air Weight: 98.6 kg Body Mass Index (BMI) 37.3 Intake & Output: Intake and Output for Last 24 Hours 12/12/23 12/13/23 12/14/23 23:59 23:59 23:59 Intake Total 1385 / 1385 50 / 50 530 / 530 Balance 1385 / 1385 50 / 50 530 / 530 Lab / Micro Data 12/13/23 03:48 12/13/23 03:48 Labs: Laboratory Results - last 24 hr 12/13/23 11:55: POC Glucose 183 H 12/13/23 19:25: Vancomycin Trough 20.1 H 12/13/23 21:02: POC Glucose 186 H Micro: Microbiology 12/11/23 Unknown Tissue - 5th Metatarsal Bone Gram Stain - Final 12/11/23 Unknown Tissue - 5th Metatarsal Bone Wound Culture - Preliminary Staphylococcus species 12/11/23 Unknown Tissue - 5th Metatarsal Bone Anaerobic Culture - Preliminary Checking for anaerobes, further studies to follow. 12/11/23 Unknown Bone - 5th Toe Gram Stain - Final 12/11/23 Unknown Bone - 5th Toe Wound Culture - Final Staphylococcus pseudintermediu 12/11/23 Unknown Bone - 5th Toe Anaerobic Culture - Preliminary Checking for anaerobes, further studies to follow. 12/07/23 17:56 Blood Culture (Wb) - Anticubital Right Blood Culture - Final No growth in 5 days. Physical Exam Narrative GENERAL: cooperative HEENT: Atraumatic; normocephalic EYES; Anicteric, Normal Conjunctiva NECK; supple, normal thyroid, RESPIRATORY: Diminished to auscultation CARDIOVASCULAR: Regular S1 S2, GI: soft, normoactive bowel sounds, : No Renal angle tenderness; EXTREMITIES: Right foot in surgical dressing MUSCULOSKELETAL: no muscle wasting NEURO: Awake; no lateralizing signs. SKIN: No Rash PSYCH; Flat affect Assessment & Plan Assessment/Plan (1) Diabetic infection of right foot: PLAN: Plan Patient is a 63-year-old lady with history of diabetes mellitus type 2 admitted with right fourth wound with cellulitis. MRI obtained did demonstrate osteomyelitis of the fifth metatarsal head and proximal phalanx with probable septic joint at the fifth MTP joint. 1. Diabetic foot infection ? Patient presented with right foot wound with cellulitis imaging studies demonstrated steomyelitis of the fifth metatarsal head and proximal phalanx with probable septic joint at the fifth MTP joint.. Patient started on broad-spectrum antibiotic therapy consult placed to podiatry plan is for patient to undergo surgical intervention by podiatry on 12/11/2023 ? 12/10/2023; pain remains controlled. Patient surgical intervention scheduled for 12/11/2023 ? 12/11/2023; patient scheduled to undergo surgical intervention ? 12/12/2023;Patient underwent Partial fifth ray amputation right foot; Incision and drainage with debridement of necrotic tissue right foot, Incision of bone cortex right foot ; Debridement of ulceration to the level of muscle right foot, Tissue rearrangement/skin flap right foot by Dr. Trimble on 12/11/2023. Patient has been seen by Dr. Soto with infectious disease his notes and recommendations including antibiotic adjustment noted -12/13/2023;Patient wound cultures so far positive for Staphylococcus pseudintermediu. Final antibiotic therapy deferred to Dr. Soto ? 12/14/2023; ID recommended 1 week po linezolid, cefdinir, and flagyl at discharge. 2. Peripheral vascular disease next Doppler/PVR waveforms obtained did show distal SFA/popliteal and infrapopliteal disease. Consult placed Dr. Figuerao, vascular surgeon 3. 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 Coronary artery disease ? Status post CABG patient is on guideline directed medical therapy 5. Paroxysmal atrial fibrillation ? Rate controlled on systemic anticoagulation with apixaban 6. Diabetes mellitus type II -patient's oral hypoglycemics held. Placed on long acting insulin, Accu-Cheks a.c. and at bedtime and covered with sliding scale insulin 7. Hypertension ? Blood pressure controlled, home medications continued with dose adjustment as needed 8. Dyslipidemia ?Patient is on statin therapy, continued at home dose 9. Class I obesity with BMI of 34.7 ? Complicating care weight loss advised 10. Hypothyroidism ? Patient is on levothyroxine home dose continued 11. DVT prophylaxis ? Enoxaparin 12. Anemia ? Secondary to chronic disorder monitoring H&H and transfuse if patient becomes symptomatic or hemoglobin falls below 7 13. Physical deconditioning ? Requested for PT OT eval and high school social studies teacher to assist with discharge planning Time spent in the patient's overall evaluation,decision-making process, review of diagnostic data, adjustment of management, discussion with other providers, nursing nursing and ancillary staff involved in patient's care documentation, 35 Minutes Charges/Coding Visit Charges Inpatient E&M: 53130 Subs Hosp L2
[2023-12-14 08:02] VITALS: BP 164/82; PULSE 72; RESP 16; TEMP 36.3; O2SAT 98
[2023-12-14] MEDS: Insulin Lispro 100 UNIT/ML INSULN.PEN SC ×2 (08:24→13:25)
[2023-12-14] MEDS: Insulin Lispro 100 UNIT/ML INSULN.PEN 10 UNIT SC ×2 (08:24→13:25)
[2023-12-14 08:29] LABS: Bedside Glucose 153 mg/dL (74-106)
--- NOTE | 2023-12-14 09:56 | CASEMGMT ---
Discharge Planning Msg received from [place] that [facility] is offering peer to peer. SW updated. Gail Monae DC Planning Asst.
--- NOTE | 2023-12-14 10:04 | CASEMGMT ---
Addendum entered by Pennie Flood 12/14/23 12:15: Precert #[id number] from [facility] KRYSTINA Severino Addendum entered by Pennie Flood 12/14/23 11:06: Physician completed [id number]. Pt received approval. PAULINO advised DCA. KRYSTINA Severino Original Note: Social Work- SW notified physician of [id number] request. Physician is planning to call. KRYSTINA Severino
[2023-12-14] MEDS: Ceftriaxone 2 GM in 0.9% Normal Saline (50mL MB+) 50 ML IV (10:51)
[2023-12-14] MEDS: Insulin Glargine-YFGN 100 UNIT/ML Pen 40 UNIT SC (10:53)
[2023-12-14] MEDS: Losartan Potassium 50 MG Tablet PO (10:53)
[2023-12-14] MEDS: Atorvastatin Calcium 40 MG Tablet PO (10:54)
[2023-12-14] MEDS: amLODIPine 10 MG Tablet PO (10:55)
[2023-12-14] MEDS: Enoxaparin 40 MG/0.4 ML Syringe SC (10:55)
[2023-12-14] MEDS: Nystatin Powder 15gm Bottle 1 APPLIC TOPICAL (10:55)
[2023-12-14 10:56] VITALS: PULSE 72
[2023-12-14] MEDS: DAKIN'S SOL HALF STRENGTH (=0.25%) TOPICAL (10:56)
[2023-12-14] MEDS: Metoprolol(XL)Succ 100 MG Tablet PO (10:56)
[2023-12-14 11:25] LABS: Bedside Glucose 156 mg/dL (74-106)
--- NOTE | 2023-12-14 11:26 | CASEMGMT ---
Discharge Planning Kiara has obtained auth to admit. SW updated. Gail Monae DC Planning Asst.
--- NOTE | 2023-12-14 11:31 | PCM.TXEXTCAR ---
Diet Diet Order/Speech Therapy: 12/11/23 16:37 Diet: Cardiac - Heart Healthy Dietary Modifications:: Consistent Carbohydrate Routine Orders/Code Status Code Status: Full Code Wound(s) right foot: Wound Type: surgical incisions s/p right 5th metatarsal amputation Dressing Change: betadine/Adaptic bilateral feet: Wound Type: generalized scabs left underwood: Wound Type: Abrasion Therapies Physical Therapy: Eval and Treat Occupational Therapy: Eval and Treat Problem/Diagnosis (1) Diabetic infection of right foot: Status: Acute Code(s): E11.628 - Type 2 diabetes mellitus with other skin complications; L08.9 - Local infection of the skin and subcutaneous tissue, unspecified Plan Patient is a 63-year-old lady with history of diabetes mellitus type 2 admitted with right fourth wound with cellulitis. MRI obtained did demonstrate osteomyelitis of the fifth metatarsal head and proximal phalanx with probable septic joint at the fifth MTP joint. 1. Diabetic foot infection ? Patient presented with right foot wound with cellulitis imaging studies demonstrated steomyelitis of the fifth metatarsal head and proximal phalanx with probable septic joint at the fifth MTP joint.. Patient started on broad-spectrum antibiotic therapy consult placed to podiatry plan is for patient to undergo surgical intervention by podiatry on 12/11/2023 ? 12/10/2023; pain remains controlled. Patient surgical intervention scheduled for 12/11/2023 ? 12/11/2023; patient scheduled to undergo surgical intervention ? 12/12/2023;Patient underwent Partial fifth ray amputation right foot; Incision and drainage with debridement of necrotic tissue right foot, Incision of bone cortex right foot ; Debridement of ulceration to the level of muscle right foot, Tissue rearrangement/skin flap right foot by Dr. Trimble on 12/11/2023. Patient has been seen by Dr. Soto with infectious disease his notes and recommendations including antibiotic adjustment noted -12/13/2023;Patient wound cultures so far positive for Staphylococcus pseudintermediu. Final antibiotic therapy deferred to Dr. Soto ? 12/14/2023; ID recommended 1 week po linezolid, cefdinir, and flagyl at discharge. 2. Peripheral vascular disease next Doppler/PVR waveforms obtained did show distal SFA/popliteal and infrapopliteal disease. Consult placed Dr. Figueroa, vascular surgeon 3. 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 Coronary artery disease ? Status post CABG patient is on guideline directed medical therapy 5. Paroxysmal atrial fibrillation ? Rate controlled on systemic anticoagulation with apixaban 6. Diabetes mellitus type II -patient's oral hypoglycemics held. Placed on long acting insulin, Accu-Cheks a.c. and at bedtime and covered with sliding scale insulin 7. Hypertension ? Blood pressure controlled, home medications continued with dose adjustment as needed 8. Dyslipidemia ?Patient is on statin therapy, continued at home dose 9. Class I obesity with BMI of 34.7 ? Complicating care weight loss advised 10. Hypothyroidism ? Patient is on levothyroxine home dose continued 11. DVT prophylaxis ? Enoxaparin 12. Anemia ? Secondary to chronic disorder monitoring H&H and transfuse if patient becomes symptomatic or hemoglobin falls below 7 13. Physical deconditioning ? Requested for PT OT eval and manager social responsibility to assist with discharge planning Time spent in the patient's overall evaluation,decision-making process, review of diagnostic data, adjustment of management, discussion with other providers, nursing nursing and ancillary staff involved in patient's care documentation, 35 Minutes Allergies/Procedures Done in Hospital Allergies Penicillins Allergy (Severe, Verified 12/07/23 12:29) Rash grass pollen Allergy (Intermediate, Verified 12/07/23 12:29) Other UPPER RESPIRATORY SYMPTOMS tree and shrub pollen Allergy (Intermediate, Verified 12/07/23 12:29) Other UPPER RESPIRATORY SYMPTOMS lisinopril Adverse Reaction (Intermediate, Verified 12/07/23 12:29) Other cough hydrocodone bitartrate (From Vicodin) Adverse Reaction (Mild, Verified 12/07/23 12:29) Unknown hallucinations losartan Adverse Reaction (Verified 12/07/23 12:29) Heart Burn Type of Care/Length of Stay Estimated LOS: Convalescent Care Less Than 30 days Type of Care Needed: Skilled Rehab Potential: Good Prognosis: Good Additional Orders/Day of Discharge Day of Discharge: 12/14/23 Dietary and Speech Recommendations Dietitian Recommendations/Changes: Continue Cardiac/CCD diet to manage medical condtions. Discharge Plan Admission Admit Date/Time: 12/07/23 16:06 Attending Provider: Matteo Urena Primary Care Provider: Fara Bernal Consulting Providers: Pavel Trimble; Daphne Long; Juanjose Soto; Jeronimo Leija; Roosevelt Figueroa Discharge Orders/Prescriptions Prescriptions: New metronidazole 500 mg Tablet 500 mg PO TID 7 Days Qty: 21 0RF linezolid 600 mg tablet 600 mg PO BID Qty: 14 0RF cefdinir 300 mg capsule 300 mg PO BID Qty: 14 0RF acetaminophen 500 mg Tablet 1,000 mg PO Q8 Qty: 0 0RF melatonin 3 mg Tablet 3 mg PO QHS PRN PRN (Reason: Insomnia) Qty: 0 0RF insulin lispro [Humalog KwikPen Insulin] 100 unit/mL Insulin Pen 10 unit subcut TIDCM Qty: 0 0RF insulin lispro [Humalog KwikPen Insulin] 100 unit/mL Insulin Pen See Protocol subcut ACHS Qty: 0 0RF Protocol: 3. Sliding Scale Insulin Med Dosing Condition: 150-189 mg/dl = 1 unit Condition: 190-229 mg/dl = 2 units Condition: 230-269 mg/dl = 3 units Condition: 270-309 mg/dl = 4 units Condition: 310-349 mg/dl = 5 units Condition: 350-399 mg/dl = 6 units Condition: 400-449 mg/dl = 7 units Condition: Greater than 449 call physician Protocol Text: Suggested for: - Patients on Total Daily Insulin Dose of 37-55 units - Obese, infected, or steroid patients MEDIUM DOSING ALGORITHIM sennosides-docusate sodium [Stimulant Laxative Plus] 8.6-50 mg Tablet 2 tab PO BID PRN PRN (Reason: Constipation) Qty: 0 0RF oxycodone 5 mg Tablet 5 mg PO Q4H PRN PRN (Reason: Pain Score 4-10) 3 Days Qty: 14 0RF Continued insulin degludec [Tresiba FlexTouch U-100] 100 unit/mL (3 mL) insulin pen 50 unit SC DAILY albuterol sulfate [Proventil HFA] 90 mcg/actuation HFA aerosol inhaler 2 puff INHALATION Q6H PRN (Reason: Sob &/Or Wheezing) metformin 1,000 mg tablet 1,000 mg PO BID (DME) pen needle, diabetic 31 gauge x 5/16 needle See Rx Instructions .ROUTE .MEDSUPPLY Qty: 1200 Patient Comments: USE DIRECTED 4 TIMES DAILY WITH INSULIN DX E11.9 Rx Instructions: As directed losartan 50 mg tablet 50 mg PO DAILY Qty: 90 3RF (DME) FreeStyle Moses 14 Day Sensor Kit See Rx Instructions .ROUTE .MEDSUPPLY Qty: 1 Patient Comments: USE 1 SENSOR EVERY 14 DAYS Rx Instructions: As directed amlodipine 10 mg Tablet 10 mg PO DAILY Qty: 30 2RF metoprolol succinate 100 mg tablet extended release 24 hr 100 mg PO DAILY levothyroxine 25 mcg tablet 25 mcg PO DAILY Eliquis 5 mg tablet See Rx Instructions .ROUTE .COMPLEX Qty: 60 11RF Dose Instruction: TAKE 1 TABLET BY MOUTH TWICE A DAY Rx Instructions: TAKE 1 TABLET BY MOUTH TWICE A DAY atorvastatin 40 mg tablet 40 mg PO DAILY Qty: 90 3RF Discontinued insulin lispro [Humalog KwikPen Insulin] 100 unit/mL insulin pen 30 unit subcut TIDCM Referrals / Follow Up: Fara Bernal DO [Primary Care Provider] - Disposition Disposition (needs filled in before D/C Order can be placed): [facility] Facility
--- NOTE | 2023-12-14 11:40 | DS.PCM_ITS ---
Providers Date of Admission: 12/07/23 Date of Discharge: 12/14/23 Primary Care Physician: Dr. 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 Routine Comment: Reason for Consult:: diabetic foot infxn and additional chronic ulcer Consult: Podiatry Routine Consulting Provider: Pavel Trimble Reason for Consult: Diabetic foot infxn EMERGENT Consult: No MD Notified: Yes Date Notified: 12/07/23 Time Notified: 17:48 Method of Notification: Text 12/08/23 16:01 Consult: Infectious Disease Routine Consulting Provider: Juanjose Soto Reason for Consult: osteomyelitis EMERGENT Consult: No MD Notified: Yes Date Notified: 12/08/23 Time Notified: 15:57 Method of Notification: Text 12/08/23 19:40 Consult: Vascular Surgery Routine Consulting Provider: Roosevelt Figueroa Reason for Consult: PAD Bilateral lower extremity L>R EMERGENT Consult: No MD Notified: Yes Date Notified: 12/11/23 Time Notified: 07:35 Method of Notification: Text Reason For Visit: RIGHT FOOT CELLULITIS Diagnosis Discharge Diagnosis (1) Diabetic infection of right foot: Status: Acute Code(s): E11.628 - Type 2 diabetes mellitus with other skin complications; L08.9 - Local infection of the skin and subcutaneous tissue, unspecified Plan Patient is a 63-year-old lady with history of diabetes mellitus type 2 admitted with right fourth wound with cellulitis. MRI obtained did demonstrate osteomyelitis of the fifth metatarsal head and proximal phalanx with probable septic joint at the fifth MTP joint. 1. Diabetic foot infection ? Patient presented with right foot wound with cellulitis imaging studies demonstrated steomyelitis of the fifth metatarsal head and proximal phalanx with probable septic joint at the fifth MTP joint.. Patient started on broad- spectrum antibiotic therapy consult placed to podiatry plan is for patient to undergo surgical intervention by podiatry on 12/11/2023 ? 12/10/2023; pain remains controlled. Patient surgical intervention scheduled for 12/11/2023 ? 12/11/2023; patient scheduled to undergo surgical intervention ? 12/12/2023;Patient underwent Partial fifth ray amputation right foot; Incision and drainage with debridement of necrotic tissue right foot, Incision of bone cortex right foot ; Debridement of ulceration to the level of muscle right foot, Tissue rearrangement/skin flap right foot by Dr. Trimble on 12/11/2023. Patient has been seen by Dr. Soto with infectious disease his notes and recommendations including antibiotic adjustment noted -12/13/2023;Patient wound cultures so far positive for Staphylococcus pseudintermediu. Final antibiotic therapy deferred to Dr. Soto ? 12/14/2023; ID recommended 1 week po linezolid, cefdinir, and flagyl at discharge. 2. Peripheral vascular disease next Doppler/PVR waveforms obtained did show distal SFA/popliteal and infrapopliteal disease. Consult placed Dr. Figueroa, vascular surgeon 3. 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 Coronary artery disease ? Status post CABG patient is on guideline directed medical therapy 5. Paroxysmal atrial fibrillation ? Rate controlled on systemic anticoagulation with apixaban 6. Diabetes mellitus type II -patient's oral hypoglycemics held. Placed on long acting insulin, Accu-Cheks a.c. and at bedtime and covered with sliding scale insulin 7. Hypertension ? Blood pressure controlled, home medications continued with dose adjustment as needed 8. Dyslipidemia ?Patient is on statin therapy, continued at home dose 9. Class I obesity with BMI of 34.7 ? Complicating care weight loss advised 10. Hypothyroidism ? Patient is on levothyroxine home dose continued 11. DVT prophylaxis ? Enoxaparin 12. Anemia ? Secondary to chronic disorder monitoring H&H and transfuse if patient becomes symptomatic or hemoglobin falls below 7 13. Physical deconditioning ? Requested for PT OT eval and school social worker to assist with discharge planning Time spent in the patient's overall evaluation,decision-making process, review of diagnostic data, adjustment of management, discussion with other providers, nursing nursing and ancillary staff involved in patient's care documentation, 35 Minutes Medications at Discharge Home Medications albuterol sulfate 90 mcg/actuation aerosol inhaler (Proventil HFA) 2 puff inhalation Q6H PRN Sob &/Or Wheezing 08/14/19 metformin 1,000 mg tablet 1,000 mg PO BID type II diabetes 04/02/20 pen needle, diabetic 31 gauge x 5/16 #1,200 ea 04/02/20 losartan 50 mg tablet 50 mg PO DAILY bp #90 tabs 07/26/21 flash glucose sensor (FreeStyle Moses 14 Day Sensor kit) #1 ea 10/19/21 insulin degludec 100 unit/mL (3 mL) subcutaneous pen (Tresiba FlexTouch U-100 insulin) 50 unit subcut DAILY type II diabetes 10/19/21 amlodipine 10 mg tablet 10 mg PO DAILY #30 tabs 04/07/23 apixaban 5 mg tablet (Eliquis) See Rx Instructions .Route .COMPLEX #60 TABLETS 04/10/23 atorvastatin 40 mg tablet 40 mg PO DAILY #90 TABLETS 10/06/23 levothyroxine 25 mcg tablet 25 mcg PO DAILY 12/07/23 metoprolol succinate 100 mg tablet,extended release 24 hr 100 mg PO DAILY 12/07/23 cefdinir 300 mg capsule 300 mg PO BID #14 caps 12/13/23 linezolid 600 mg tablet 600 mg PO BID #14 tabs 12/13/23 metronidazole 500 mg tablet 500 mg PO TID 7 days #21 tabs 12/13/23 acetaminophen 500 mg tablet 1,000 mg (2 x 500 mg) PO Q8 #0 tabs 12/14/23 insulin lispro 100 unit/mL subcutaneous pen (Humalog KwikPen (U-100) Insulin) 10 unit (0.1 mL) subcut TIDCM #0 mL 12/14/23 insulin lispro 100 unit/mL subcutaneous pen (Humalog KwikPen (U-100) Insulin) See Protocol subcut ACHS #0 mL 12/14/23 melatonin 3 mg tablet 3 mg PO QHS PRN PRN Insomnia #0 tabs 12/14/23 oxycodone 5 mg tablet 5 mg PO Q4H PRN PRN Pain Score 4-10 3 days #14 tabs 12/14/23 sennosides 8.6 mg-docusate sodium 50 mg tablet (Stimulant Laxative Plus) 2 tab PO BID PRN PRN Constipation #0 tabs 12/14/23 Physical Exam Narrative GENERAL: cooperative HEENT: Atraumatic; normocephalic EYES; Anicteric, Normal Conjunctiva NECK; supple, normal thyroid, RESPIRATORY: Diminished to auscultation CARDIOVASCULAR: Regular S1 S2, GI: soft, normoactive bowel sounds, : No Renal angle tenderness; EXTREMITIES: Right foot in surgical dressing MUSCULOSKELETAL: no muscle wasting NEURO: Awake; no lateralizing signs. SKIN: No Rash PSYCH; Flat affect Weight / BMI Weight Weight: 98.6 kg Body Mass Index (BMI) 37.3 ABG / Lab / Microbiology Data 12/13/23 03:48 12/13/23 03:48 Laboratory: Laboratory Results - last 24 hr 12/13/23 11:55: POC Glucose 183 H 12/13/23 19:25: Vancomycin Trough 20.1 H 12/13/23 21:02: POC Glucose 186 H 12/14/23 07:59: POC Glucose 153 H 12/14/23 10:49: POC Glucose 156 H Microbiology: Microbiology 12/11/23 Unknown Tissue - 5th Metatarsal Bone Gram Stain - Final 12/11/23 Unknown Tissue - 5th Metatarsal Bone Wound Culture - Preliminary Staphylococcus species 12/11/23 Unknown Tissue - 5th Metatarsal Bone Anaerobic Culture - Preliminary Checking for anaerobes, further studies to follow. 12/11/23 Unknown Bone - 5th Toe Gram Stain - Final 12/11/23 Unknown Bone - 5th Toe Wound Culture - Final Staphylococcus pseudintermediu 12/11/23 Unknown Bone - 5th Toe Anaerobic Culture - Preliminary Checking for anaerobes, further studies to follow. 12/07/23 17:56 Blood Culture (Wb) - Anticubital Right Blood Culture - Final No growth in 5 days. D/C Instructions Discharge Diet: 1800 Calorie Control Diet Discharge Activity: Return to Normal Activity Call your doctor if you observe: Fever of 101 or Higher, Shortness of breath, Fainting spells and Chest pain Meaningful Use Info Meaningful Use Meaningful Use Diagnoses (Choose all that apply): None applicable Ischemic Stroke Statin Dosing Therapy Reference: STATIN DOSE THERAPY REFERENCE: * Patients > 75 years receive moderate or high dose statin therapy. * Patients 75 years or YOUNGER should receive HIGH intensity statin dose unless contraindicated. You will be required to document reason for non-treatment if statin daily dose does not meet guidelines. HIGH DOSE STATIN THERAPY DAILY Atorvastatin > than or = to 40 mg Rosuvastatin > than or = to 20 mg Amlodipine + Atorvastatin > than or = to 2.5/40 mg Ezetimibe + Simvastatin 10/80 mg Simvastatin 80mg Discharge Plan Admission Admit Date/Time: 12/07/23 16:06 Attending Provider: Matteo Urena Primary Care Provider: Fara Bernal Consulting Providers: Pavel Trimble; Daphne Long; Juanjose Soto; Jeronimo Leija; Roosevelt Figueroa Discharge Orders/Prescriptions Prescriptions: New metronidazole 500 mg Tablet 500 mg PO TID 7 Days Qty: 21 0RF linezolid 600 mg tablet 600 mg PO BID Qty: 14 0RF cefdinir 300 mg capsule 300 mg PO BID Qty: 14 0RF acetaminophen 500 mg Tablet 1,000 mg PO Q8 Qty: 0 0RF melatonin 3 mg Tablet 3 mg PO QHS PRN PRN (Reason: Insomnia) Qty: 0 0RF insulin lispro [Humalog KwikPen Insulin] 100 unit/mL Insulin Pen 10 unit subcut TIDCM Qty: 0 0RF insulin lispro [Humalog KwikPen Insulin] 100 unit/mL Insulin Pen See Protocol subcut ACHS Qty: 0 0RF Protocol: 3. Sliding Scale Insulin Med Dosing Condition: 150-189 mg/dl = 1 unit Condition: 190-229 mg/dl = 2 units Condition: 230-269 mg/dl = 3 units Condition: 270-309 mg/dl = 4 units Condition: 310-349 mg/dl = 5 units Condition: 350-399 mg/dl = 6 units Condition: 400-449 mg/dl = 7 units Condition: Greater than 449 call physician Protocol Text: Suggested for: - Patients on Total Daily Insulin Dose of 37-55 units - Obese, infected, or steroid patients MEDIUM DOSING ALGORITHIM sennosides-docusate sodium [Stimulant Laxative Plus] 8.6-50 mg Tablet 2 tab PO BID PRN PRN (Reason: Constipation) Qty: 0 0RF oxycodone 5 mg Tablet 5 mg PO Q4H PRN PRN (Reason: Pain Score 4-10) 3 Days Qty: 14 0RF Continued insulin degludec [Tresiba FlexTouch U-100] 100 unit/mL (3 mL) insulin pen 50 unit SC DAILY albuterol sulfate [Proventil HFA] 90 mcg/actuation HFA aerosol inhaler 2 puff INHALATION Q6H PRN (Reason: Sob &/Or Wheezing) metformin 1,000 mg tablet 1,000 mg PO BID (DME) pen needle, diabetic 31 gauge x 5/16 needle See Rx Instructions .ROUTE .MEDSUPPLY Qty: 1200 Patient Comments: USE DIRECTED 4 TIMES DAILY WITH INSULIN DX E11.9 Rx Instructions: As directed losartan 50 mg tablet 50 mg PO DAILY Qty: 90 3RF (DME) FreeStyle Moses 14 Day Sensor Kit See Rx Instructions .ROUTE .MEDSUPPLY Qty: 1 Patient Comments: USE 1 SENSOR EVERY 14 DAYS Rx Instructions: As directed amlodipine 10 mg Tablet 10 mg PO DAILY Qty: 30 2RF metoprolol succinate 100 mg tablet extended release 24 hr 100 mg PO DAILY levothyroxine 25 mcg tablet 25 mcg PO DAILY Eliquis 5 mg tablet See Rx Instructions .ROUTE .COMPLEX Qty: 60 11RF Dose Instruction: TAKE 1 TABLET BY MOUTH TWICE A DAY Rx Instructions: TAKE 1 TABLET BY MOUTH TWICE A DAY atorvastatin 40 mg tablet 40 mg PO DAILY Qty: 90 3RF Discontinued insulin lispro [Humalog KwikPen Insulin] 100 unit/mL insulin pen 30 unit subcut TIDCM Referrals / Follow Up: Fara Bernal DO [Primary Care Provider] - Within 2 Weeks Pavel Trimble DPM [Med Staff - Active Staff] - Within 1 Week Juanjose Soto MD [Med Staff - Active Staff] - Within 2 Weeks Disposition Disposition (needs filled in before D/C Order can be placed): Jail Facility Charges/Coding Visit Charges Inpatient E&M: 27768 Disch Hosp >30min
--- NOTE | 2023-12-14 12:10 | CASEMGMT ---
Social Work Precert has been obtained.? Physician updated and pt is ready for discharge today.? 7000 convalescent form completed in [facility].? SW met with pt and they are agreeable to discharge plan as stated above.? DCA notified of discharge. Disposition: [facility] Aguirre, skilled level of care under convalescent stay. KRYSTINA Severino
--- NOTE | 2023-12-14 12:27 | CASEMGMT ---
Discharge Planning Discharge orders, signed med list, and transport time sent via [facility] to [facility]. Physicians will transport patient by wheelchair at 3p. Nursing, SW, and patient update. Pt states she will update her . Gail Monae DC Planning Asst.
== END 2023-12-14 14:55 | disposition skilled nursing facility (03) | DRG 617 ==
LOC: ED 16:05 → MS3 17:05
PROVIDERS: Family Medicine; Internal Medicine Infectious Disease; Student in an Organized Health Care Education/Training Program; Admitting Provider Internal Medicine; Emergency Provider Emergency Medicine; PCP Family Medicine; Visit Provider Internal Medicine
PROC: 0Y6M0ZF Detachment at Right Foot, Partial 5th Ray, Open Approach (ICD-10-PCS; CPT 28292; principal; 2023-12-11 13:15)
DX: E11.69 Type 2 diabetes mellitus with other specified complication (principal); M86.171 Other acute osteomyelitis, right ankle and foot; I69.351 Hemiplegia and hemiparesis following cerebral infarction affecting right dominant side; M00.071 Staphylococcal arthritis, right ankle and foot; I50.32 Chronic diastolic (congestive) heart failure; L03.115 Cellulitis of right lower limb; M86.671 Other chronic osteomyelitis, right ankle and foot; D63.8 Anemia in other chronic diseases classified elsewhere; I69.322 Dysarthria following cerebral infarction; I11.0 Hypertensive heart disease with heart failure; E11.621 Type 2 diabetes mellitus with foot ulcer; E03.9 Hypothyroidism, unspecified; Z68.34 Body mass index [BMI] 34.0-34.9, adult; L97.513 Non-pressure chronic 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; I48.0 Paroxysmal atrial fibrillation; E11.51 Type 2 diabetes mellitus with diabetic peripheral angiopathy without gangrene; E11.42 Type 2 diabetes mellitus with diabetic polyneuropathy; E11.628 Type 2 diabetes mellitus with other skin complications; E11.65 Type 2 diabetes mellitus with hyperglycemia; E78.5 Hyperlipidemia, unspecified; I25.10 Atherosclerotic heart disease of native coronary artery without angina pectoris; Z79.4 Long term (current) use of insulin; M20.11 Hallux valgus (acquired), right foot; M21.621 Bunionette of right foot; I25.2 Old myocardial infarction; B95.7 Other staphylococcus as the cause of diseases classified elsewhere; E66.811 Obesity, class 1; R53.81 Other malaise; Z95.1 Presence of aortocoronary bypass graft; Z79.01 Long term (current) use of anticoagulants; Z79.84 Long term (current) use of oral hypoglycemic drugs; Z79.890 Hormone replacement therapy; Z79.899 Other long term (current) drug therapy
CPT/HCPCS: 36415; 73620; 73630; 73718; 75635; 76000; 80048; 80053; 80202; 82962; 83605; 83735; 84100; 85025; 85027; 85652; 86140; 87015; 87040; 87070; 87075; 87077; 87102; 87116; 87176; 87186; 87205; 87206; 88304; 88305; 88311; 97110; 97116; 97162; 97166; 97530; 97535; 99183; 99212; 99284; J2185; Q9967; A4216; G0277; G0463; J0696; J0744; J2405

== ENCOUNTER 2024-01-04 10:00 | Outpatient (RCR) | payer MEDICARE, MEDICAID, SELFPAY ==
[2023-12-15 00:24] VITALS: BP 153/91; BP 155/80; BP 162/98; PULSE 77; PULSE 87; PULSE 90; RESP 14; RESP 15; RESP 16; TEMP 36.1; TEMP 36.9; TEMP 37.1; BMI 34.3
[2023-12-28 09:05] VITALS: BP 159/69; PULSE 83; RESP 18; TEMP 36.6; BMI 34.3
--- NOTE | 2023-12-28 09:28 | PN.PCM_ITS ---
History of Present Illness Date of Service: 12/28/23 Chief Complaint: Right foot ulceration History of Wound: Ms. Sawyer is a 63-year-old currently being seen at the Wound Center for a right foot ulcer which ultimately lead to partial 5th ray amputation. She did undergo partial fifth ray amputation at [facility] on 12/11/2023. Following her discharge she was transferred to SNF on 12/14/2023. She returns to the wound care center today for continued care and follow-up postoperatively. Patient states she has been staying off the foot as best she can as she has problems with her shoulders which complicates use of crutches or walker. She states her SNF is changing dressings every other day. Does state has some tenderness to the foot. Denies N/V/F/chills. Denies trauma. Denies further complaints. Objective Data Objective Data Vital Signs: Vital Signs Temp Pulse Resp BP 98 F 83 18 159/69 H 12/28/23 09:05 12/28/23 09:05 12/28/23 09:05 12/28/23 09:05 Weight: 90.718 kg Body Mass Index (BMI) 34.3 Physical Exam Const alert, oriented x3 and no apparent distress General Appearance: cooperative HEENT normocephalic Eyes General Eye: normal appearance of both eyes Neck General: normal visual inspection Resp normal respiratory effort Cardio regular rate and regular rhythm Extremity no calf tenderness Extremity Narrative: Right lower extremity: Vascular: DP and PT pulses weakly palpable. CFT delayed to digits at 5 seconds. DP and PT monophasic on Doppler. Normal temperature gradient. Hair growth is absent to digits. Neurologic: Gross sensation intact. Protective sensation absent secondary to diabetic peripheral polyneuropathy Musculoskeletal: Muscle strength 5 of 5 age-appropriate. There is some localized tenderness about the surgical site. No pain to palpation of calf. Dermatologic: There is some local erythema at the proximal aspect of the surgical site with some tenderness to palpation dorsally. Sutures intact to dorsal and plantar foot and skin well coapted. No purulent drainage noted. No malodor. Skin no rashes or lesions noted and skin turgor normal Neuro moves all extremities Debridement Note Debridement Note No debridement was completed: No debridement was completed today Post-Debridement Measurements and Additional Note: Post-Debridement Measurements/Treatment WC - Nurse 1 - General Ulcer Assessment Start: 12/28/23 09:05 Freq: Status: Active Protocol: DEDRICK Activity Type Activity Date Activity User E-sign Co-sign Detail Recorded Client Recorded Date Recorded By Document 12/28/23 09:05 RB [id number] 12/28/23 09:09 RB 12/28/23 09:05 - Today's Visit Information Type of service Follow-up Visit (Physician/COMPUTER REPAIR ENGINEER ) Arrival Mode Wheelchair Transfer Assistance Manual Patient Identification Verified (Name & Yes ) Patient Requires Transmission-Based No Precautions Finger Stick Blood Sugar(mg/dl) (if 118 indicated): Blood Sugar Stated by Patient Height and Weight Body Mass Index (BMI) 34.3 BMI Classification Obese Vital Signs Temperature (97.8 F-99.1 F) 98 F Temperature Source Temporal Pulse Rate (60-100) 83 Pulse Location Monitor Respiratory Rate (12-18) 18 Respiratory rate source Observation Blood Pressure (90/60-120/80) 159/69 H Blood Pressure Mean (mm Hg) 99 Source Monitor History Since Last Visit- (Skip if this is Patient's initial visit) Have you changed medications since your No last visit? Any new allergies or adverse reactions No Had a fall/change in ADL's that may No increase risk of falls Signs or symptoms of abuse and/or No neglect since last visit Have you been in the hospital since your Yes last visit? Has dressing in place as prescribed Yes Has compression in place as prescribed Yes Has offloadiing in place as prescribed No Experienced any changes in pain level or No management Right Footwear Surgical Shoe with pressure relief insole Pain Scale: 0-10 Numeric Is Patient Pain Free? No R FOOT -Description Aching -Intensity 2 -Duration (hours) Acute -Pain Behavior Withdrawal from Touch -Pain Aggravating Factors ADL's -Alleviating Factors/Interventions Medication -Effectiveness of Alleviating Factor/ Moderately Intervention effective - Nurse 1 - General Ulcer Measurement Start: 12/28/23 09:05 Freq: Status: Active Protocol: Activity Type Activity Date Activity User E-sign Co-sign Detail Recorded Client Recorded Date Recorded By Document 12/28/23 09:05 RB [id number] 12/28/23 09:09 RB 12/28/23 09:05 Wound Center Nurse 1 1. R FOOT PLANTAR LATERAL -Combined with other wound No -Current Size (cm) - Length 0.1 -Current Size (cm) - Width 0.1 -Current Size (cm) - Depth 0.1 -Total Square Cm 0.01 -Photo Taken Yes -Tunneling No -Undermining/Tunneling No -Circular Undermining No -Exudate Amt Medium -Exudate Type Serosanguineous -Wound Margin Distinct, Outline Attached -Granulation Amt Medium (34-66%) -Granulation Quality Faith -Slough/Fibrin Yes -Necrosis Amt Small (1-33%) -Necrotic Tissue Type Adherent Slough -Structure Exposed N/A -Texture (Pema-wound Skin Appearance) Assessed, Scarring -Moisture (Pema-wound Skin Appearance) Assessed -Color (Pema-wound Skin Appearance) Erythema -Temperature (Pema-wound Skin No Abnormality Appearance) (Pt Warm) -Tenderness on Palpation (Pema-wound No Skin Appearance) -Ulcer Cleansing Wound Cleanser -Foul Odor after Cleansing No -Anesthetic Used 4% Lidocaine Solution -Wound Comment(s) approximately 12 sutures intact erythema noted along incision. WC - Nurse 2 - General Ulcer CM Notes Start: 12/28/23 09:05 Freq: Status: Active Protocol: Activity Type Activity Date Activity User E-sign Co-sign Detail Recorded Client Recorded Date Recorded By Document 12/28/23 09:16 [facility] [id number] 12/28/23 09:24 [facility] 12/28/23 09:16 Wound Center Nurse 2 -Time 09:21 -Post Debridement (cm) - Length 0.1 -Post Debridement (cm) - Width 0.1 -Post Debridement (cm) - Depth 0.1 -Total Square (Post) (cm) 0.01 -Area of Debridement (cm) - Length 0.1 -Area of Debridement (cm) - Width 0.1 -Total Square (Area) (cm) 0.01 -Tunneling No -Undermining/Tunneling No -Circular Undermining No -Wound/Ulcer Outcome Not Healed -Bleeding Controlled with NA Pain Scale: 0-10 Numeric Is Patient Pain Free? Yes Assessment/Plan Assessment/Plan (1) Status post amputation of right foot through metatarsal bone: CODE(S): Z89.431 - Acquired absence of right foot (2) Chronic painful diabetic polyneuropathy: CODE(S): E11.42 - Type 2 diabetes mellitus with diabetic polyneuropathy (3) Other specified peripheral vascular diseases: CODE(S): I73.89 - Other specified peripheral vascular diseases PLAN: Plan Patient seen and evaluated She presents today for continued postoperative care s/p partial fifth ray amputation of the right foot. DOS 12/11/2023. POD #17 Dressings removed today and site was inspected. Sutures intact to dorsal and plantar aspect of the right foot. Mild post- operative edema noted to the foot. There does appear to be some localized erythema about the proximal aspect of the incision site of the dorsal foot with some tenderness to touch. However foot does not feel overly warm versus surrounding areas. No purulent drainage noted. Overall does appear to be healing well. Dressing changed today consisting of Betadine soaked Adaptic, 4 x 4 gauze, Kerlix, and 4 inch James wrap rolled onto the right foot. Patient has been residing in an SNF and continued to receive 1 week oral antibiotic post discharge per infectious disease. Discussed today starting an additional round of oral antibiotic as a precaution. Rx doxycycline 100 mg twice daily x 14 days (stop date 01/11/2024) Patient admits to difficulty with the nonweightbearing status due to bilateral shoulder injury with weakness which complicates ability to utilize crutches/walker. Discussed with her that she may utilize wheelchair to remain compliant with this. May continue with transfer utilizing right heel to assist in standing. Will continue to keep dressings clean, dry, and intact to the right foot Will continue wearing surgical shoe to the right foot Discussed continued elevation of the lower extremities at all times of rest for postoperative edema control SNF will continue dressing changes every other day. Discussed suture removal at next visit. At this time prognosis is good and she is healing well. Once sutures removed will plan for protective weight bearing to the Right foot in surgical shoe prior to transition back to supportive shoe gear. She will return to the wound care center in 1 week for continued postoperative care s/p partial fifth ray amputation of the right foot.
[2024-01-04 09:55] VITALS: BP 121/79; PULSE 90; RESP 18; TEMP 35.9; BMI 34.3
--- NOTE | 2024-01-04 10:12 | PN.PCM_ITS ---
History of Present Illness Date of Service: 01/04/24 Chief Complaint: Right foot ulceration History of Wound: Ms. Sawyer is a 63-year-old currently being seen at the [facility] for a right foot ulcer which ultimately lead to partial 5th ray amputation. She did undergo partial fifth ray amputation at [facility] on 12/11/2023. Following her discharge she was transferred to SNF on 12/14/2023. She returns to the wound care center today for continued care and follow-up postoperatively. Patient states she has been staying off the foot as best she can as she has problems with her shoulders which complicates use of crutches or walker. She states her SNF is changing dressings every other day. Denies pain to foot. Finishing oral antibiotic. Denies N/V/F/chills. Denies trauma. Denies further complaints. Objective Data Objective Data Vital Signs: Vital Signs Temp Pulse Resp BP 96.7 F L 90 18 121/79 H 01/04/24 09:55 01/04/24 09:55 01/04/24 09:55 01/04/24 09:55 Weight: 90.718 kg Body Mass Index (BMI) 34.3 Physical Exam Const alert, oriented x3 and no apparent distress General Appearance: cooperative HEENT normocephalic Eyes General Eye: normal appearance of both eyes Neck General: normal visual inspection Resp normal respiratory effort Cardio regular rate and regular rhythm Extremity no calf tenderness Extremity Narrative: Right lower extremity: Vascular: DP and PT pulses weakly palpable. CFT delayed to digits at 5 seconds. DP and PT monophasic on Doppler. Normal temperature gradient. Hair growth is absent to digits. Neurologic: Gross sensation intact. Protective sensation absent secondary to diabetic peripheral polyneuropathy Musculoskeletal: Muscle strength 5 of 5 age-appropriate. No pain to palpation. No pain to palpation of calf. Dermatologic: There is improvement in local erythema at the proximal aspect of the surgical site. No pain to palpation. Sutures intact to dorsal and plantar foot and skin well coapted. No purulent drainage noted. No malodor. Skin no rashes or lesions noted and skin turgor normal Neuro moves all extremities Debridement Note Debridement Note No debridement was completed: No debridement was completed today Post-Debridement Measurements and Additional Note: Post-Debridement Measurements/Treatment WC - Nurse 1 - General Ulcer Assessment Start: 12/28/23 09:05 Freq: Status: Active Protocol: DEDRICK Activity Type Activity Date Activity User E-sign Co-sign Detail Recorded Client Recorded Date Recorded By Document 12/28/23 09:05 RB [id number] 12/28/23 09:09 RB Document 01/04/24 09:55 DL [id number] 01/04/24 10:05 DL 12/28/23 01/04/24 09:05 09:55 WC - Today's Visit Information Type of service Follow-up Visit Follow-up Visit (Physician/PARTRIDGE FARMER (Physician/PARTRIDGE FARMER ) ) Arrival Mode Wheelchair Ambulatory, Walker Transfer Assistance Manual None Patient Identification Verified (Name & Yes Yes ) Patient Requires Transmission-Based No No Precautions Finger Stick Blood Sugar(mg/dl) (if 118 indicated): Blood Sugar Stated by Patient Height and Weight Body Mass Index (BMI) 34.3 34.3 BMI Classification Obese Obese Vital Signs Temperature (97.8 F-99.1 F) 98 F 96.7 F L Temperature Source Temporal Temporal Pulse Rate (60-100) 83 90 Pulse Location Monitor Monitor Respiratory Rate (12-18) 18 18 Respiratory rate source Observation Observation Blood Pressure (90/60-120/80) 159/69 H 121/79 H Blood Pressure Mean (mm Hg) 99 93 Source Monitor Monitor History Since Last Visit- (Skip if this is Patient's initial visit) Have you changed medications since your No No last visit? Any new allergies or adverse reactions No No Had a fall/change in ADL's that may No No increase risk of falls Signs or symptoms of abuse and/or No No neglect since last visit Have you been in the hospital since your Yes No last visit? Has dressing in place as prescribed Yes Yes Has compression in place as prescribed Yes Yes Has offloadiing in place as prescribed No Yes Experienced any changes in pain level or No No management Right Footwear Surgical Shoe with pressure relief insole Pain Scale: 0-10 Numeric Is Patient Pain Free? No Yes R FOOT -Description Aching -Intensity 2 -Duration (hours) Acute -Pain Behavior Withdrawal from Touch -Pain Aggravating Factors ADL's -Alleviating Factors/Interventions Medication -Effectiveness of Alleviating Factor/ Moderately Intervention effective WC - Nurse 1 - General Ulcer Measurement Start: 12/28/23 09:05 Freq: Status: Active Protocol: Activity Type Activity Date Activity User E-sign Co-sign Detail Recorded Client Recorded Date Recorded By Document 12/28/23 09:05 RB [id number] 12/28/23 09:09 RB Document 01/04/24 09:55 DL [id number] 01/04/24 10:05 DL 12/28/23 01/04/24 09:05 09:55 Wound Center Nurse 1 1. R FOOT PLANTAR LATERAL -Combined with other wound No -Current Size (cm) - Length 0.1 0.1 -Current Size (cm) - Width 0.1 0.1 -Current Size (cm) - Depth 0.1 0.1 -Total Square Cm 0.01 0.01 -Photo Taken Yes Yes -Tunneling No -Undermining/Tunneling No -Circular Undermining No -Exudate Amt Medium Small -Exudate Type Serosanguineous Serosanguineous -Wound Margin Distinct, Indistinct, Non Outline -Visible Attached -Granulation Amt Medium (34-66%) -Granulation Quality [place] N/A -Slough/Fibrin Yes -Necrosis Amt Small (1-33%) Large (67-100%) -Necrotic Tissue Type Adherent Slough Eschar -Structure Exposed N/A N/A -Texture (Pema-wound Skin Appearance) Assessed, Localized Edema Scarring ,Scarring -Moisture (Pema-wound Skin Appearance) Assessed Dry/Scaly -Color (Pema-wound Skin Appearance) Erythema No Abnormality -Temperature (Pema-wound Skin No Abnormality No Abnormality Appearance) (Pt Warm) (Pt Warm) -Tenderness on Palpation (Pema-wound No No Skin Appearance) -Ulcer Cleansing Wound Cleanser Soap and Water -Foul Odor after Cleansing No No -Anesthetic Used 4% Lidocaine 4% Lidocaine Solution Solution -Wound Comment(s) approximately Sutures intact 12 sutures to both areas. intact erythema noted along incision. WC - Nurse 2 - General Ulcer CM Notes Start: 12/28/23 09:05 Freq: Status: Active Protocol: Activity Type Activity Date Activity User E-sign Co-sign Detail Recorded Client Recorded Date Recorded By Document 12/28/23 09:16 [facility] [id number] 12/28/23 09:24 [facility] 12/28/23 09:16 Wound Center Nurse 2 -Time 09:21 -Post Debridement (cm) - Length 0.1 -Post Debridement (cm) - Width 0.1 -Post Debridement (cm) - Depth 0.1 -Total Square (Post) (cm) 0.01 -Area of Debridement (cm) - Length 0.1 -Area of Debridement (cm) - Width 0.1 -Total Square (Area) (cm) 0.01 -Tunneling No -Undermining/Tunneling No -Circular Undermining No -Wound/Ulcer Outcome Not Healed -Bleeding Controlled with NA Pain Scale: 0-10 Numeric Is Patient Pain Free? Yes - Nurse 3 - General Ulcer D/C NN Start: 12/28/23 09:05 Freq: Status: Active Protocol: Activity Type Activity Date Activity User E-sign Co-sign Detail Recorded Client Recorded Date Recorded By Document 12/28/23 09:38 DL [id number] 12/28/23 09:39 DL 12/28/23 09:38 Wound Care Center Nurse 3 1. R FOOT PLANTAR LATERAL -Foul Odor after Cleansing No -Primary Dressing Applied NonAdherent Contact Layer -Other Dressing Betadine -Primary Dressing Covered/Secured with Dry Gauze & Roll Gauze, Secured with Tape Treatment Response Procedure Tolerated Well Pain Scale: 0-10 Numeric Is Patient Pain Free? Yes WC - Visit Discharge Discharge Condition Stable Ambulatory Status Wheelchair Transportation ECF trans Facility Type Membership Sales Advisor Care Facility Orders Sent Yes Assessment/Plan Assessment/Plan (1) Status post amputation of right foot through metatarsal bone: CODE(S): Z89.431 - Acquired absence of right foot (2) Chronic painful diabetic polyneuropathy: CODE(S): E11.42 - Type 2 diabetes mellitus with diabetic polyneuropathy (3) Other specified peripheral vascular diseases: CODE(S): I73.89 - Other specified peripheral vascular diseases PLAN: Plan Patient seen and evaluated She presents today for continued postoperative care s/p partial fifth ray amputation of the right foot. DOS 12/11/2023. POD #24 Dressings removed today and site was inspected. Sutures intact to dorsal and plantar aspect of the right foot. Mild post- operative edema noted to the foot, but improving. There is improvement in localized erythema about the proximal aspect of the incision site of the dorsal foot. No pain to palpation about surgical site. No purulent drainage noted. Loc alized cellulitis resolved on oral antibiotic. Will finish last of the oral antibiotic to completion Sutures removed today atraumatically. Site has healed well overall and skin flap is healthy in appearance and incorporated well. No signs of ulceration/open wound. Overall does appear to be healing well. Incision site painted with Betadine and dressed with 4 x 4 gauze, Kerlix, and 4 inch James wrap rolled onto the right foot. Patient has been residing in an SNF and continued to receive 1 week oral antibiotic post discharge per infectious disease, which she did finish. At last visit due to some localized erythema she was started on an additional round of oral antibiotic as a precaution. Rx doxycycline 100 mg twice daily x 14 days (stop date 01/11/2024). Localized erythema has resolved today. Will finish antibiotic to completion. Patient admits to difficulty with the nonweightbearing status due to bilateral shoulder injury with weakness which complicates ability to utilize crutches/ walker. Discussed at this time with site well healed we will transition to protective weightbearing in surgical shoe for the next week. After this may return to diabetic shoe gear. Will continue to keep dressings clean, dry, and intact to the right foot for next 48 hours after which she may remove and wash area with soap and water. She is not to submerge or soak foot for next 2 weeks. Will continue wearing surgical shoe to the right foot Discussed continued elevation of the lower extremities at all times of rest for postoperative edema control At this time I am okay with discharge from her SNF center to return home for the upcoming . At this time prognosis is good and she is healing well. She will transition to protective weight bearing to the Right foot in surgical shoe prior to transition back to supportive shoe gear. She is very pleased with healing at this time and leaves today in good spirits. She will return to the wound care center in 2 weeks for continued postoperative care s/p partial fifth ray amputation of the right foot.
--- NOTE | 2024-01-05 08:42 | WC ---
PHOTO 01/04/24 RIGHT LATERAL PLANTAR POST OP
== END 2024-01-13 23:59 | disposition home or self-care (01) ==
LOC: WC 10:00
PROVIDERS: PCP Family Medicine; Referring Provider Physician Assistant; Visit Provider Student in an Organized Health Care Education/Training Program
DX: Z89.421 Acquired absence of other right toe(s) (principal); E11.42 Type 2 diabetes mellitus with diabetic polyneuropathy; E11.51 Type 2 diabetes mellitus with diabetic peripheral angiopathy without gangrene; Z79.4 Long term (current) use of insulin; Z79.01 Long term (current) use of anticoagulants; Z79.84 Long term (current) use of oral hypoglycemic drugs; Z79.899 Other long term (current) drug therapy
CPT/HCPCS: 99213; G0463

== ENCOUNTER 2024-01-18 09:59 | Outpatient (RCR) | payer MEDICARE, MEDICAID, SELFPAY ==
[2024-01-14 00:20] VITALS: BP 153/91; BP 155/80; BP 162/98; PULSE 77; PULSE 87; PULSE 90; RESP 14; RESP 15; RESP 16; TEMP 36.1; TEMP 36.9; TEMP 37.1; BMI 34.3
[2024-01-18 10:08] VITALS: BP 153/94; PULSE 92; RESP 18; TEMP 36.4; BMI 34.3
--- NOTE | 2024-01-18 13:18 | PN.PCM_ITS ---
History of Present Illness Date of Service: 01/18/24 Chief Complaint: Right foot ulceration History of Wound: Ms. Sawyer is a 63-year-old currently being seen at the Wound Center for a right foot ulcer which ultimately lead to partial 5th ray amputation. She did undergo partial fifth ray amputation at [facility] on 12/11/2023. Following her discharge she was transferred to SNF on 12/14/2023. She returns to the wound care center today for continued care and follow-up postoperatively. Patient states she has been staying off the foot as best she can as she has problems with her shoulders which complicates use of crutches or walker. She states her SNF is changing dressings every other day. Does state has some tenderness to the foot. Denies N/V/F/chills. Denies trauma. Denies further complaints. Objective Data Objective Data Vital Signs: Vital Signs Temp Pulse Resp BP O2 Del Method 97.6 F L 92 18 153/94 H Room Air 01/18/24 10:08 01/18/24 10:08 01/18/24 10:08 01/18/24 10:08 01/18/24 10:08 Oxygen Delivery Method Room Air Weight: 90.718 kg Body Mass Index (BMI) 34.3 Physical Exam Const alert, oriented x3 and no apparent distress General Appearance: cooperative HEENT normocephalic Eyes General Eye: normal appearance of both eyes Neck General: normal visual inspection Lymph Lymphatic: no lymphadenopathy noted and no lymphedema noted Resp normal respiratory effort Cardio regular rate and regular rhythm Extremity Extremity Narrative: Right lower extremity: Vascular: DP and PT pulses weakly palpable. CFT delayed to digits at 5 seconds. DP and PT monophasic on Doppler. Normal temperature gradient. Hair growth is absent to digits. Neurologic: Gross sensation intact. Protective sensation absent secondary to diabetic peripheral polyneuropathy Musculoskeletal: Muscle strength 5 of 5 age-appropriate. No pain to palpation. No pain to palpation of calf. Dermatologic: Cicatrix to dorsal and plantar foot. Sites well healed. No open ulcerations. No erythema. No signs of infection. Skin no rashes or lesions noted and skin turgor normal Neuro moves all extremities Debridement Note Debridement Note No debridement was completed: No debridement was completed today Post-Debridement Measurements and Additional Note: Post-Debridement Measurements/Treatment WC - Nurse 1 - General Ulcer Assessment Start: 01/18/24 10:08 Freq: Status: Active Protocol: WC.LUCINDA Activity Type Activity Date Activity User E-sign Co-sign Detail Recorded Client Recorded Date Recorded By Document 01/18/24 10:08 CATHY [id number] 01/18/24 10:10 DS 01/18/24 10:08 - Today's Visit Information Type of service Follow-up Visit (Physician/TRIM TECHNICIAN ) Arrival Mode Ambulatory Transfer Assistance Manual Patient Identification Verified (Name & Yes ) Patient Requires Transmission-Based No Precautions Safety Precautions Fall Prevention Height and Weight Body Mass Index (BMI) 34.3 BMI Classification Obese Vital Signs Temperature (97.8 F-99.1 F) 97.6 F L Temperature Source Temporal Pulse Rate (60-100) 92 Pulse Location Monitor Respiratory Rate (12-18) 18 Respiratory rate source Observation Oxygen Delivery Method Room Air Blood Pressure (90/60-120/80) 153/94 H Blood Pressure Mean (mm Hg) 113 Source Monitor Position Sitting Blood Pressure Location Left Arm History Since Last Visit- (Skip if this is Patient's initial visit) Have you changed medications since your No last visit? Any new allergies or adverse reactions No Had a fall/change in ADL's that may No increase risk of falls Signs or symptoms of abuse and/or No neglect since last visit Have you been in the hospital since your No last visit? Has dressing in place as prescribed Yes Has compression in place as prescribed N/A Has offloadiing in place as prescribed Yes Experienced any changes in pain level or No management Left Footwear Regular Shoe Right Footwear Surgical Shoe with pressure relief insole Pain Scale: 0-10 Numeric Is Patient Pain Free? Yes - Nurse 1 - General Ulcer Measurement Start: 01/18/24 10:08 Freq: Status: Active Protocol: Activity Type Activity Date Activity User E-sign Co-sign Detail Recorded Client Recorded Date Recorded By Document 01/18/24 10:10 CATHY [id number] 01/18/24 10:17 DS 01/18/24 10:10 Wound Center Nurse 1 1. R FOOT PLANTAR LATERAL -Combined with other wound No -Current Size (cm) - Length 0.1 -Current Size (cm) - Width 0.1 -Current Size (cm) - Depth 0.1 -Total Square Cm 0.01 -Photo Taken No -Tunneling No -Undermining/Tunneling No -Circular Undermining No -Texture (Pema-wound Skin Appearance) Assessed -Moisture (Pema-wound Skin Appearance) Assessed -Color (Pema-wound Skin Appearance) Assessed -Temperature (Pema-wound Skin No Abnormality Appearance) (Pt Warm) -Tenderness on Palpation (Pema-wound No Skin Appearance) -Ulcer Cleansing Soap and Water -Anesthetic Used 5% Lidocaine Gel WC - Nurse 2 - General Ulcer CM Notes Start: 01/18/24 10:08 Freq: Status: Active Protocol: Activity Type Activity Date Activity User E-sign Co-sign Detail Recorded Client Recorded Date Recorded By Document 01/18/24 10:25 [facility] [id number] 01/18/24 10:30 [facility] 01/18/24 10:25 Wound Center Nurse 2 -Time 10:25 -Post Debridement (cm) - Length 0.1 -Post Debridement (cm) - Width 0.1 -Post Debridement (cm) - Depth 0.1 -Total Square (Post) (cm) 0.01 -Area of Debridement (cm) - Length 0.1 -Area of Debridement (cm) - Width 0.1 -Total Square (Area) (cm) 0.01 -Tunneling No -Undermining/Tunneling No -Circular Undermining No -Wound/Ulcer Outcome Not Healed -Bleeding Controlled with NA -Wound Comment(s) will f/u w/ jeremías at [facility] Pain Scale: 0-10 Numeric Is Patient Pain Free? Yes - Nurse 3 - General Ulcer D/C NN Start: 01/18/24 10:08 Freq: Status: Active Protocol: Activity Type Activity Date Activity User E-sign Co-sign Detail Recorded Client Recorded Date Recorded By Document 01/18/24 13:09 [facility] [id number] 01/18/24 13:10 [facility] 01/18/24 13:09 Wound Care Center Nurse 3 1. R FOOT PLANTAR LATERAL -Wound Comment(s) bandaid applied . pt will be following up at [facility] center Pain Scale: 0-10 Numeric Is Patient Pain Free? Yes - Visit Discharge Discharge Condition Stable Ambulatory Status Ambulatory Transportation Private Auto Assessment/Plan Assessment/Plan (1) Status post amputation of right foot through metatarsal bone: CODE(S): Z89.431 - Acquired absence of right foot (2) Diabetes mellitus with diabetic polyneuropathy: CODE(S): E11.42 - Type 2 diabetes mellitus with diabetic polyneuropathy QUALIFIERS: Diabetes mellitus buttermilk drier operator insulin use: with buttermilk drier operator use Diabetes mellitus type: type 2 Qualified Code(s): E11.42 - Type 2 diabetes mellitus with diabetic polyneuropathy; Z79.4 - intermediate (current) use of insulin (3) Other specified peripheral vascular diseases: CODE(S): I73.89 - Other specified peripheral vascular diseases PLAN: Plan Patient seen and evaluated She presents today for continued postoperative care s/p partial fifth ray amputation of the right foot. DOS 12/11/2023. POD #38 Site was inspected. Cicatrix to dorsal and plantar aspect of the right foot. No erythema. No open ulcerations. Site healed well. No pain to palpation about surgical site. Site has healed well overall and skin flap is healthy in appearance and incorporated well. No signs of ulceration/open wound. Overall has healed well and we will begin transition to supportive shoe gear today. Has finished doxycycline 100 mg twice daily x 14 days (stop date 01/11/2024). She is returning to supportive shoe gear today and will continue to monitor. Discussed proper fitting shoe gear to ensure nothing rubs or becomes too tight. Discussed continued elevation of the lower extremities at all times of rest for postoperative edema control At this time prognosis is good and she is healing well. She will transition to full weight bearing to the Right foot in supportive shoe gear. She is very pleased with healing at this time and leaves today in good spirits. At this time with wounds healed she is being discharged from the wound care center today. She will continue follow-up in office in 2 weeks for continued postoperative care s/p partial fifth ray amputation of the right foot.
== END 2024-02-09 10:00 | disposition home or self-care (01) ==
LOC: WC 09:59
PROVIDERS: PCP Family Medicine; Referring Provider Physician Assistant; Visit Provider Student in an Organized Health Care Education/Training Program
DX: E11.51 Type 2 diabetes mellitus with diabetic peripheral angiopathy without gangrene (principal); L97.519 Non-pressure chronic ulcer of other part of right foot with unspecified severity; Z89.431 Acquired absence of right foot; E11.42 Type 2 diabetes mellitus with diabetic polyneuropathy; Z79.4 Long term (current) use of insulin; Z79.01 Long term (current) use of anticoagulants; Z79.899 Other long term (current) drug therapy
CPT/HCPCS: 99213; G0463

== ENCOUNTER → 2024-01-19 | Outpatient (CLI) | payer MEDICARE, MEDICAID, SELFPAY ==
--- NOTE | 2024-01-19 10:40 | RAD_ITS ---
STUDY: X-RAY - LEFT KNEE REASON FOR EXAM: Female, 63 years old. Sprain TECHNIQUE: 4 view(s) of the knee. COMPARISON: None. FINDINGS: Normal visualized distal femur. Normal visualized proximal tibia and fibula. Normal proximal tibiofibular articulation. There is no demonstrated fracture. There is chondrocalcinosis of the medial femorotibial compartment and lateral femorotibial compartment. There is mild degenerative arthrosis of the patellofemoral articulation. There is a soft tissue prominence in the suprapatellar region suggesting a small volume joint effusion. There are surgical clips in the medial soft tissues. There are vascular calcifications. RAD/Knee 4 or More Views IMPRESSION: Arthritic changes with chondrocalcinosis. No fracture seen. Electronically Signed: Nick Becerril MD at 11:21 EST ,
== END | disposition home or self-care (01) ==
LOC: MTRAD 10:29
PROVIDERS: PCP Family Medicine; Referring Provider Physician Assistant Surgical; Visit Provider Physician Assistant Surgical
DX: S83.92XA Sprain of unspecified site of left knee, initial encounter (principal); X58.XXXA Exposure to other specified factors, initial encounter
CPT/HCPCS: 73564

== ENCOUNTER → 2024-05-21 | Outpatient (CLI) | payer MEDICARE, MEDICAID, SELFPAY ==
--- NOTE | 2024-05-21 10:47 | RAD_ITS ---
PROCEDURE: FINGER(S) MIN 2 VIEWS 05/21/2024 REASON FOR EXAM: ERYTHEMA, SWELLING, PAIN TECHNIQUE: 3 view(s) of the RIGHT index finger COMPARISON: None FINDINGS: Fracture/dislocation: None visible. Joint space(s): Mild/moderate joint space loss 2nd DIP. Mild joint space loss 2nd PIP. No clear erosions. Soft tissues: Faint mineralization in the soft tissues along the dorsal and ulnar aspect of the DIP. Vascular calcifications. Foreign bodies: None visible. Bone mineralization: Demineralization. No periarticular osteopenia. Other: None. RAD/Finger(s) Min 2 Views IMPRESSION: 1. Demineralization without visible acute displaced fracture. 2. Faint soft tissue mineralization and soft tissue swelling along the 2nd DIP joint. Correlate for clinical evidence of calcific tendinopathy or perhaps early gout or pseudogout/CPPD associated arthr opathy, although this distribution would be unusual. No clear erosions. 3. Additional description as above. Reading Location: [id number]
== END | disposition home or self-care (01) ==
LOC: MTRAD 10:46
PROVIDERS: PCP Family Medicine; Referring Provider Physician Assistant; Visit Provider Physician Assistant
DX: M79.644 Pain in right finger(s) (principal); M79.89 Other specified soft tissue disorders
CPT/HCPCS: 73140

== ENCOUNTER → 2024-06-07 | Outpatient (CLI) | payer MEDICARE, MEDICAID, SELFPAY ==
--- NOTE | 2024-06-07 08:41 | ART_ITS ---
Reason For Study Reason For Study: PVD Procedure A bilateral lower extremity continuous wave Doppler with analog waveform analysis,segmental pressures,and ankle brachial indexes without exercise. Left Segmental Pressures Left brachial= 139mmHg. Left low thigh = >254mmHg. Left calf = 136mmHg. Left posterior tibial artery = 84mmHg. Left dorsalis pedis artery = 84mmHg. Left digit = 22 mmHg. The left dorsalis pedis waveforms are monophasic. The left posterior tibial artery waveforms are monophasic. Right Segmental Pressures Right brachial= 129mmHg. Right low thigh = >254mmHg. Right calf = 109mmHg. Right posterior tibial artery = 90mmHg. Right dorsalis pedis artery = 122mmHg. Right digit = 78 mmHg. The right dorsalis pedis waveforms are biphasic. The right posterior tibial artery waveforms are monophasic. Indices The right ankle brachial index by the dorsalis pedis is 0.88. The right ankle brachial index by the posterior tibial artery is 0.65. The right digital-brachial index is 0.56. The left ankle brachial index by the dorsalis pedis is 0.60. The left ankle brachial index by the posterior tibial artery is 0.60. The left digital-brachial index is 0.16. VL/Lower Ext Art Exam w/o Exercis Interpretation Summary Right GARCÍA 0.88, moderate arterial insufficiency. Doppler/PVR waveforms and segm ental pressures reveal distal SFA/popliteal disease. Left GARCÍA 0.6, moderate arterial insufficiency. Doppler/PVR waveforms and segmen donte pressures reveal distal SFA/popliteal, infrapopliteal disease. Ordering Physician: Jackie Larson Referring Physician: Fara Bernal Performed By: ROXANNA KELLY RVT
== END | disposition home or self-care (01) ==
LOC: CVS 08:36
PROVIDERS: PCP Family Medicine; Referring Provider Physician Assistant; Visit Provider Physician Assistant
DX: I73.9 Peripheral vascular disease, unspecified (principal)
CPT/HCPCS: 93923

== ENCOUNTER 2024-10-14 14:08 | Emergency (ER) | payer MEDICARE, MEDICAID, SELFPAY ==
[2024-10-14 14:08] VITALS: BP 170/103; PULSE 96; RESP 18; TEMP 36.6; O2SAT 100; BMI 33.3
--- NOTE | 2024-10-14 14:19 | RAD_ITS ---
PROCEDURE: WRIST MIN 3 VIEWS 10/14/2024 REASON FOR EXAM: FALL AND PAIN TECHNIQUE: Procedure Code: RADWR Modality: DX Procedure: WRIST MIN 3 VIEWS Laterality: RIGHT FINDINGS: Fracture/dislocation: None visible. Joint space(s): Variable multifocal joint space loss greatest in the IP joints. Soft tissues: Vascular calcifications. Foreign bodies: None visible. Bone mineralization: Demineralization. Other: None. RAD/Wrist min 3 Views IMPRESSION: 1. Demineralization without visible acute displaced fracture. If there is pers istent concern for occult nondisplaced fracture consider immobilization with repeat radiographs in 10-14 days. 2. Additional description as above. Reading Location: [id number]
--- NOTE | 2024-10-14 14:19 | RAD_ITS ---
PROCEDURE: CHEST PA AND LATERAL 10/14/2024 REASON FOR EXAM: FALL AND RIGHT LOWER ANTERIOR RIB PAIN TECHNIQUE: Procedure Code: RADCXR Modality: DX Procedure: CHEST PA AND LATERAL COMPARISON: 10/13/23 FINDINGS: No focal consolidation. No pleural effusion or pneumothorax. Cardiac silhouette is within normal limits. No acute fractures. Median sternotomy wires. RAD/Chest PA and Lateral IMPRESSION: No focal consolidations. No acute fractures. Reading Location: [facility]
--- NOTE | 2024-10-14 14:20 | ED.VIS.FALL ---
HPI HPI - Fall History of Present Illness Chief Complaint: Fall Informant: patient Occured/Mechanism Occurred: Days Mechanism/Context: Yes trip Usually ambulates: Without assistance Pain/Injury Pain Location: chest and upper extremity Quality of Pain: Sharp Current Severity: Mild Maximum Severity: Mild Associated Symptoms Associated Symptoms: Negative for Parasthesias, Weakness, Loss of function, Inability to ambulate, Loss of consciousness or Amnesia Narrative Narrative: 64-year-old female history of diabetes, A-fib on Eliquis and prior stroke 6 years ago. She was stepping over a curb when she tripped fell and injured her right wrist and right anterior lower rib cage. Did not hit her head. No LOC. No headache. She believes this occurred on Monday about 3 days ago. She has [id number]. Prior similar symptoms: No Recent Illness/Hospitalization: No PFSH PFSH Medical History Swelling of right index finger MRSA (methicillin resistant staph aureus) culture positive Hypothyroidism Diabetes Kidney stones Non-smoker CPAP (continuous positive airway pressure) dependence Asthma Myocardial infarct Atrial fibrillation Osteomyelitis Left rotator cuff tear Impingement of left shoulder Left shoulder pain PAF (paroxysmal atrial fibrillation) Diabetic retinopathy associated with type 2 diabetes mellitus Obesity Skin lesion of left lower extremity Dysarthria Dyspnea Chronic diastolic (congestive) heart failure MARLEN (obstructive sleep apnea) Slurred speech CVA (cerebral vascular accident) (12/14/18) Essential (primary) hypertension Type 2 diabetes mellitus Incontinent of urine neck/back pain Limb weakness Anemia Shoulder pain Arthritis History of deep venous thrombosis (DVT) of distal vein of left lower extremity (04/13/13) 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) Hyperlipidemia History of non-ST elevation myocardial infarction (NSTEMI) (04/08/13) History of non-Hodgkin's lymphoma (2012) Polycystic ovaries IBS (irritable bowel syndrome) Home Medications ?Medication ?Instructions ?Recorded ?Last Taken ?Type albuterol sulfate 90 mcg/actuation 2 puff inhalation Q6H PRN Sob &/Or 08/14/19 04/05/23 10:00 History aerosol inhaler (Proventil HFA) Wheezing metformin 1,000 mg tablet 1,000 mg PO BID type II diabetes 04/02/20 12/06/23 History pen needle, diabetic 31 gauge x #1,200 ea 04/02/20 Unknown History 5/16 losartan 50 mg tablet 50 mg PO DAILY bp #90 tabs 07/26/21 12/06/23 Rx flash glucose sensor (FreeStyle #1 ea 10/19/21 Unknown History Moses 14 Day Sensor kit) insulin degludec 100 unit/mL (3 50 unit subcut DAILY type II 10/19/21 12/06/23 History mL) subcutaneous pen (Tresiba diabetes FlexTouch U-100 insulin) amlodipine 10 mg tablet 10 mg PO DAILY #30 tabs 04/07/23 Unknown Rx levothyroxine 25 mcg tablet 25 mcg PO DAILY 12/07/23 12/06/23 History linezolid 600 mg tablet 600 mg PO BID #14 tabs 12/13/23 Unknown Rx insulin lispro 100 unit/mL 10 unit (0.1 mL) subcut TIDCM #0 mL 12/14/23 Unknown Rx subcutaneous pen (Humalog KwikPen (U-100) Insulin) insulin lispro 100 unit/mL See Protocol subcut ACHS #0 mL 12/14/23 Unknown Rx subcutaneous pen (Humalog KwikPen (U-100) Insulin) melatonin 3 mg tablet 3 mg PO QHS PRN PRN Insomnia #0 12/14/23 Unknown Rx tabs metoprolol succinate 50 mg 50 mg PO QDAY 04/19/24 Unknown History tablet,extended release 24 hr nitroglycerin 0.4 mg sublingual 0.4 mg sublingual Q5-15M PRN chest 04/19/24 Unknown Rx tablet (Nitrostat) pain #25 tabs apixaban 5 mg tablet (Eliquis) See Rx Instructions .Route 05/10/24 Unknown Rx .COMPLEX #60 TABLETS atorvastatin 40 mg tablet 40 mg PO DAILY #90 TABLETS 09/27/24 Unknown Rx cilostazol 50 mg tablet 50 mg PO BID #180 tabs 10/08/24 Unknown Rx Allergy/AdvReac Type Severity Reaction Status Date / Time Penicillins Allergy Severe Rash Verified 10/14/24 14:11 grass pollen Allergy Intermediate Other Verified 10/14/24 14:11 tree and shrub pollen Allergy Intermediate Other Verified 10/14/24 14:11 lisinopril AdvReac Intermediate Other Verified 10/14/24 14:11 hydrocodone bitartrate (From AdvReac Mild Unknown Verified 10/14/24 14:11 Vicodin) losartan AdvReac Heart Burn Verified 10/14/24 14:11 Family History Father , 65 Diabetes Hypertension cabg Mother , Age 65 Hypertension Renal failure Sister Cancer Sister Diabetes Cardiomegaly Surgical History History of appendectomy Hx of CABG History of left heart catheterization (07/26/18) H/O coronary artery bypass surgery (04/10/13) Atherosclerotic heart disease of [place] coronary artery without angina pectoris Social History household members: children Smoking Status: Never smoker alcohol intake: never substance use type: does not use caffeine: Yes Type: coffee Number of servings: 2 ROS ROS ED ROS Narrative Denies recent illness. Constitutional Constitutional ED: Denies chills or fever(s) Eyes Eyes: Denies blurry vision ENT ENT ED: Denies ear pain Cardiovascular Cardiovascular: Reports chest pain and other Details: Right anterior rib cage pain post fall. Respiratory/Chest Respiratory/Chest: Denies cough or dyspnea Gastrointestinal Gastrointestinal: Denies abdominal pain Genitourinary Genitourinary ED: Denies dysuria or hematuria Musculoskeletal Musculoskeletal: Denies arthralgias or back pain Integumentary Denies abscess or Abrasions Neurologic Neurologic: Denies headache(s) Psychiatric Psychiatric: Denies anxiety Endocrine Endocrinology: Denies polydipsia Hematologic/Lymphatic Hematologic/Lymphatic: Denies lymphadenopathy Allergic/Immunologic Allergic/Immunologic ED: Denies mouth swelling, tongue swelling or urticaria EXAM Physical Exam Narrative Exam Narrative: 64-year-old female vital signs stable afebrile no acute distress. Sitting upright in bed. H EENT exam pupils round react light. No signs of trauma to her face or scalp nontender no hematoma. C-spine nontender. Trachea midline. Back and spine nontender. No bruising. Lungs clear to auscultation bilaterally. Heart A-fib rate about 95 no murmur. Chest wall right anterior lower rib tenderness. No ecchymosis or bruising. No subcu air or crepitus. Sternum left ribs posterior ribs nontender. Abdomen soft nontender normal bowel sounds no peritoneal signs. No bruising. Pelvic girdle intact. Moving all 4 extremities. Neurovascularly intact. 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 Normal dorsi plantarflexion. Normal range of motion right wrist tender swollen primarily at the thenar eminence and the distal radius. Skins intact. Neurologically she is awake alert. Answering questions following commands. Prior stroke she has subtle weakness on the right side compared to the left. Const Vital Signs: 10/14/24 14:08 Temperature 97.9 F Temperature Source Oral Pulse Rate 96 Respiratory Rate 18 Blood Pressure 170/103 H Blood Pressure Mean 125 Pulse Ox 100 Oxygen Delivery Method Room Air Positive well nourished and well developed; Negative for cachectic, contractures or unkempt General Appearance ED: well developed; Negative for unkempt, cachectic or contractures Nutritional Appearance: Negative for cachectic HEENT Reports normocephalic atraumatic; Negative for trauma, contusion, hematoma or tenderness Eyes PERRL and EOMs intact bilaterally Neck full ROM, no lymphadenopathy and supple Chest Wall inspection of chest normal and palpation of chest normal Resp normal respiratory effort and no retractions Auscultation: Negative for rales, rhonchi, wheezes or diminished lung sounds Cardio no murmurs; Negative for regular rate or regular rhythm Cardio Narrative: A-fib rate about 95. Rhythm: abnormal rhythm GI non-tender, non-distended and no masses Auscultation: normoactive bowel sounds Palpation: soft; Negative for guarding or rebound tenderness present Back/Spine no CVA tenderness Neuro oriented x3, CN's II-XII intact bilaterally and moves all extremities Neuro Narrative: Subtle weakness right side compared to the left from prior stroke. Not acute. Sensorium / Orientation: alert, oriented to person, oriented to place and oriented to time Motor Exam: Negative for strength 5/5 throughout Psych mental status grossly normal and thought process normal Appearance: Negative for unkempt Skin Lesions: no lesions Rashes: no rashes MDM MDM MDM Narrative Medical decision making narrative: 64-year-old female fell on Monday complaining of right wrist discomfort and right anterior rib cage discomfort. She was offered but did not wining for pain. She did not hit her head and there is no signs of trauma to her head. Obtaining a right wrist x-ray and chest x-ray. We discussed CT versus chest x-ray she is comfortable just getting a chest x-ray done. Did not want to wait for hours for the CT. Repeat exam at 2:41 PM patient doing well. Repeat exam unchanged. She and I went over her x-rays. We did discuss limitations of chest x-ray for possible rib fractures. She is comfortable being discharged to home. She has follow-up with her primary care physician Dr. Fara Cali on Monday. She knows if the pain is not improving we may have to do repeat films or additional imaging. She is to use Tylenol for pain and ice to both areas. Radiography Diagnostic Testing: Right wrist x-ray, 3 views, AP and lateral and oblique, interpreted by myself shows no fracture no dislocation. Chest x-ray, 2 views AP and lateral interpreted by myself shows normal cardiac silhouette normal lungs. Prior sternotomy. No obvious rib fracture or pneumothorax patient I discussed limitations of chest x-ray for nondisplaced rib fractures. Discharge Plan Triage Chief Complaint: Fall ED Provider: Ventura Santos Dx/Rx/DC Orders Clinical Impression: Fall, Chest wall contusion, Contusion of right wrist, History of atrial fibrillation, Chronic anticoagulation Instructions: ED Bruise, Rib, ED Rib Contusion or Minor Fracture Prescriptions: No Action insulin degludec [Tresiba FlexTouch U-100] 100 unit/mL (3 mL) insulin pen 50 unit SC DAILY albuterol sulfate [Proventil HFA] 90 mcg/actuation HFA aerosol inhaler 2 puff INHALATION Q6H PRN (Reason: Sob &/Or Wheezing) metformin 1,000 mg tablet 1,000 mg PO BID (DME) pen needle, diabetic 31 gauge x 5/16 needle See Rx Instructions .ROUTE .MEDSUPPLY Qty: 1200 Patient Comments: USE DIRECTED 4 TIMES DAILY WITH INSULIN DX E11.9 Rx Instructions: As directed losartan 50 mg tablet 50 mg PO DAILY Qty: 90 3RF (DME) FreeStyle Moses 14 Day Sensor Kit See Rx Instructions .ROUTE .MEDSUPPLY Qty: 1 Patient Comments: USE 1 SENSOR EVERY 14 DAYS Rx Instructions: As directed metoprolol succinate 50 mg tablet extended release 24 hr 50 mg PO QDAY nitroglycerin [Nitrostat] 0.4 mg tablet, sublingual 0.4 mg sublingual Q5-15M PRN (Reason: chest pain) Qty: 25 3RF Rx Instructions: do not exceed 3 doses per episode cilostazol 50 mg tablet 50 mg PO BID Qty: 180 1RF amlodipine 10 mg Tablet 10 mg PO DAILY Qty: 30 2RF levothyroxine 25 mcg tablet 25 mcg PO DAILY linezolid 600 mg tablet 600 mg PO BID Qty: 14 0RF melatonin 3 mg Tablet 3 mg PO QHS PRN PRN (Reason: Insomnia) Qty: 0 0RF insulin lispro [Humalog KwikPen Insulin] 100 unit/mL Insulin Pen 10 unit subcut TIDCM Qty: 0 0RF insulin lispro [Humalog KwikPen Insulin] 100 unit/mL Insulin Pen See Protocol subcut ACHS Qty: 0 0RF Protocol: 3. Sliding Scale Insulin Med Dosing Condition: 150-189 mg/dl = 1 unit Condition: 190-229 mg/dl = 2 units Condition: 230-269 mg/dl = 3 units Condition: 270-309 mg/dl = 4 units Condition: 310-349 mg/dl = 5 units Condition: 350-399 mg/dl = 6 units Condition: 400-449 mg/dl = 7 units Condition: Greater than 449 call physician Protocol Text: Suggested for: - Patients on Total Daily Insulin Dose of 37-55 units - Obese, infected, or steroid patients MEDIUM DOSING ALGORITHIM Eliquis 5 mg tablet See Rx Instructions .ROUTE .COMPLEX Qty: 60 11RF Dose Instruction: TAKE 1 TABLET BY MOUTH TWICE A DAY Rx Instructions: TAKE 1 TABLET BY MOUTH TWICE A DAY atorvastatin 40 mg tablet 40 mg PO DAILY Qty: 90 3RF Primary Care Provider: Fara Bernal Referrals: Fara Bernal DO [Primary Care Provider] - Keep Jos appointment Activity Restrictions/Additional Instructions: Your x-rays did not show any broken bones. Ice to your wrist and hand, ice to your ribs. Use a pillow to brace the ribs. Tylenol for pain. If the rib pain or wrist and hand pain does not improve we can get repeat films or even a CAT scan of your chest. Keep your scheduled appointment with your doctor later this week. Print Language: Norwegian Disposition Disposition: Home, Self Care
--- OUTSIDE RECORDS SUMMARY | 2024-10-14 14:41 | XMS RPT_ITS | CCD ---
Author Organization [facility] Care Team Providers Care Engineering Mathematician Name Role Phone Nadya BORJA, Gail Ca Unavailable Unavailable Steve Centeno Unavailable Unavailable Steve Centeno Unavailable Unavailable Margaret Sun Primary Care Provider Dr. Fara Bernal Primary Care Provider Dr. Fara Bernal Referring Provider FLO Wright Attending Provider Dr. Fara Bernal Primary Care Provider [phone] Dr. Fara Bernal Referring Provider FLO Wright Attending Provider Dr. Galdino Figueroa Attending Provider Dr. Fara Bernal Primary Care Provider [phone] FLO Wright Referring Provider Dr. Fara Bernal Referring Provider [phone] FLO Valdez Attending Provider Dr. Fara Bernal Primary Care Provider Dr. Fara Bernal Referring Provider FLO Holman Attending Provider Dr. Fara Bernal Primary Care Provider [phone] Dr. Sheng Pritchard Attending Provider MD Kaden Gardiner Emergency Provider Dr. Myla Lopez Admit Provider John, Dr. Myla Timmons Referring Provider John, Dr. Myla Timmons Other Provider Dr. Sheng Pritchard Other Provider Kor, Dr. Ellen Gutierrez Attending Provider Korliz, Dr. Ellen Gutierrez Other Provider Dr. Myla Lopez Referring Provider Dr. Fara Bernal Primary Care Provider Dr. Sheng Pritchard Attending Provider MD Kaden Gardiner Emergency Provider John, Dr. Myla Timmons Admit Provider John, Dr. Myla Timmons Other Provider Dr. Sheng Pritchard Other Provider Korliz, Dr. Ellen Gutierrez Attending Provider Kor, Dr. Ellen Gutierrez Other Provider Dr. Myla Lopez Referring Provider SHASTA Arellano-C Janneth Primary Care Provider SHASTA Arellano-Rohit Lagunas Referring Provider FLO Hammond Attending Provider Dr. Fara Bernal Referring Provider Shlomo POURED WALL FOREMAN, POURED WALL FOREMAN-C Renée Attending Provider MD Girma Conley Attending Provider Dr. Fara Bernal DO Primary Care Provider Dr. Fara Bernal DO Referring Provider Yesica Wright Attending Provider Alonso Vega Attending Provider Alonso Vega Referring Provider Jackie Martines Attending Provider Yesica Wright Referring Provider Dolores CUMMINS, Dr. Chaudhari Primary Care Provider Dr. Fara Bernal DO Referring Provider [phone] Jackie Martines Attending Provider Alonso Vega Attending Unavailable Malys, Fara Primary Care Unavailable Malys, Fara Referring Unavailable Malys, Fara Primary Care Unavailable Pavel Trimble Consulting Unavailable Louis POURED WALL FOREMAN, Tarsha E Referring Unavailabl e Louis POURED WALL FOREMAN, Tarsha E Attending Unavailabl e Malys, Fara Primary Care Unavailable Pavel Trimble Consulting Unavailable Louis POURED WALL FOREMAN, Tarsha E Referring Unavailabl e Louis POURED WALL FOREMAN, Tarsha Bowen Attending Unavailabl e Malys, Fara Primary Care Unavailable Pavel Trimble Consulting Unavailable Daphne Long Admitting Unavailable Jeronimo Leija Attending Unavailable Daphne Long Consulting Unavailable Jeronimo Leija Consulting Unavailable Alonso Vega Referring Unavailable Pavel Trimble Attending Unavailable Malys, Fara Primary Care Unavailable Jackie Larson Attending Unavailable Larson, Jackie Referring Unavailable Malys, Fara Primary Care Unavailable Pavel Trimble Consulting Unavailable Daphne Long Admitting Unavailable Malys, Fara Primary Care Unavailable Matteo Urena Attending Unavailable Daphne Long Consulting Unavailable Juanjose Soto Consulting Unavailable Jeronimo Leija Consulting Unavailable Galdino Figueroa Consulting Unavailable Alonso Vega Referring Unavailable Pavel Trimble Attending Unavailable Malys, Fara Primary Care Unavailable Galdino Figueroa Attending Unavailable Larson, Jackie Referring Unavailable Malys, Fara Primary Care Unavailable Matteo Urena Attending Unavailable Juanjose Soto Consulting Unavailable Matteo Urena Consulting Unavailable Alonso Vega Referring Unavailable Pavel Trimble Consulting Unavailable Malys, Fara Primary Care Unavailable Dino Garsia Attending Unavailable Yesica Wright Attending Unavail able Malys, Fara Primary Care Unavailable Malys, Fara Referring Unavailable Malys, Fara Primary Care Unavailable Malys, Fara Referring Unavailable Josh Hammond Attending Unavailable Alonso Vega Referring Unavailable Pavel Trimble Consulting Unavailable Malys, Fara Primary Care Unavailable Louis POURED WALL FOREMAN, Tarsha E Attending Unavailabl e Malys, Fara Primary Care Unavailable Pavel Trimble Consulting Unavailable Louis POURED WALL FOREMAN, Tarsha E Attending Unavailabl e Louis POURED WALL FOREMAN, Tarsha E Referring Unavailabl e Malys, Fara Primary Care Unavailable Karime, Juanjose Referring Unavailable Pavel Trimble Consulting Unavailable Juanjose Schaffer Attending Unavailable Malys, Fara Primary Care Unavailable Karime, Juanjose Referring Unavailable Karime, Juanjose Attending Unavailable Pavel Tirmble Consulting Unavailable Yesica Wright Referring Unavail able Jackie Larson Attending Unavailable Malys, Fara Primary Care Unavailable Jackie Larson Attending Unavailable Malys, Fara Referring Unavailable Malys, Fara Primary Care Unavailable Malys, Fara Primary Care Unavailable Pavel Trimble Consulting Unavailable Louis POURED WALL FOREMAN, Tarsah E Referring Unavailabl e Louis POURED WALL FOREMAN, Tarsha E Attending Unavailabl e Malys, Fara Primary Care Unavailable Pavel Trimble Consulting Unavailable Louis POURED WALL FOREMAN, Tarsha E Referring Unavailabl e Louis POURED WALL FOREMAN, Tarsha E Attending Unavailabl e Josh Hammond Attending Unavailable Malys, Fara Primary Care Unavailable Josh Hammond Referring Unavailable Malys, Fara Primary Care Unavailable Pavel Trimble Consulting Unavailable Louis POURED WALL FOREMAN, Tarsha E Attending Unavailabl e Louis POURED WALL FOREMAN, Tarsha E Referring Unavailabl e Alonso Vega Referring Unavailable Malys, Fara Primary Care Unavailable Pavel Trimble Attending Unavailable Alonso Vega Referring Unavailable Malys, Fara Primary Care Unavailable Pavel Trimble Unavailable Dino Garsia Attending Unavailable Malys, Fara Primary Care Unavailable Pavel Trimble Consulting Unavailable Louis POURED WALL FOREMAN, Tarsha Bowen Attending Unavailabl e Louis POURED WALL FOREMAN, Tarsha E Referring Unavailabl e Galdino Figueroa Consulting Unavailable Jackie Larson Attending Unavailable Mateto Urena Referring Unavailable Alonso Vega Referring Unavailable Pavel Trimble Unavailable Malys, Fara Primary Care Unavailable Dino Garsia Attending Unavailable Malys, Fara Primary Care Unavailable Pavel Trimble Unavailable Louis POURED WALL FOREMAN, Tarsha E Referring Unavailabl e Louis POURED WALL FOREMAN, Tarsha E Attending Unavailabl e Malys, Fara Primary Care Unavailable Pavel Trimble Consulting Unavailable Louis POURED WALL FOREMAN, Tarsha E Referring Unavailabl e Louis POURED WALL FOREMAN, Tarsha Bowen Attending Unavailabl e Malys, Fara Primary Care Unavailable Pavel Trimble Consulting Unavailable Louis POURED WALL FOREMAN, Tarsha Bowen Referring Unavailabl e Louis POURED WALL FOREMAN, Tarsha Bowen Attending Unavailabl e Malys, Fara Primary Care Unavailable Daphne Long Attending Unavailable Alonso Vega Referring Unavailable Pavel Trimble Attending Unavailable Malys, Fara Primary Care Unavailable Alonso Vega Referring Unavailable Malys, Fara Primary Care Unavailable Pavel Trimble Attending Unavailable Alonso Vega Referring Unavailable Alonso Vega Attending Unavailable Malys, Fara Primary Care Unavailable Allergies Allergy Classification Reported Allergen(s) Allergy Type Date of Onset Reaction(s) Facility (3 sources) Acetaminophen / HYDROcodone Drug Allergy 3 [facility] Work Phone: (16 sources) Lisinopril; Translations: [lisinopril] Drug Allergy 4 cough, Other [facility] Work Phone: Comment on above: cough (3 sources) Penicillin Drug Allergy 1 [facility] Work Phone: [phone] (3 sources) GRASSES AND TREES drug allergy 5 [facility] Work Phone: [phone] (1 source) Acetaminophen / HYDROcodone Drug Allergy 2 Mental Status Change [facility] (14 sources) Penicillins; Translations: [Penicillins] Drug Allergy 2 Other: See Comments [facility] (13 sources) HYDROcodone; Translations: [hydrocodone bitartrate] Drug Allergy 1 Unknown [facility] Comment on above: hallucinations (12 sources) Losartan Drug Allergy 1 Heart Burn [facility] (2 sources) grasses and tree pollen Allergy to substance 1 upper respiratory symptoms [facility] Work Phone: (11 sources) Grass pollen; Translations: [grass pollen] Allergy to substance 2 Other [facility] Comment on above: UPPER RESPIRATORY SY MPTOMS (11 sources) Tree and shrub pollen; Translations: [tree and shrub pollen] Allergy to substance 2 Other [facility] Comment on above: UPPER RESPIRATORY SY MPTOMS (1 source) Losartan Drug Allergy 5 [facility] Repository Medications Current Medications Medication Drug Class(es) Dates Sig (Normalized) Sig (Original) [id number] 200 actuat albuterol 0.09 mg/actuat metered dose inhaler (12 sources) beta2-Adrenergic Agonist Start: 08-14-2019 Albuterol Sulfate (Proventil Hfa) 90 mcg/actuation HFA aerosol inhaler Active 2 NMA INHALATION EVERY 6 HOURS as needed for Sob &/Or Wheezing August 14, 2019 12:00am Start: 08-14-2019 take 1 puff(s) by in halation every six hours Albuterol Sulfate (Proventil Hfa) 90 mcg/actuation HFA aerosol inhaler Active 2 PUFF INHALATION EVERY 6 HOURS August 14, 2019 12:00am amLODIPine 10 mg oral tablet (20 sources) Dihydropyridine Calcium Channel Arti Start: 04-07-2023 take 1 tablet by mouth once daily Amlodipine 10 mg Tablet Active 10 mg PO DAILY 30 2 April 07, 2023 1:00am Start: 10-19-2021 End: 04-07-2023 take 1 tablet by mouth once daily Amlodipine 2.5 mg tablet Discontinued 0 .ROUTE .COMPLEX 90 March 22, 2023 10:40am April 06, 2023 1:22am TAKE 1 TABLET BY MOUTH EVERY DAY Start: 11-16-2020 End: 07-26-2021 take 1 tablet by mouth once daily Amlodipine (Norvasc) 2.5 mg tablet Discontinued 2.5 mg PO DAILY 90 March 01, 2021 1:49pm July 26, 2021 9:13am End: 06-26-2013 take 1 tablet by mouth once daily NORVASC 5 MG TABS One tablet by mouth daily AMLODIPINE BESYLATE [id number] Mario Knight atorvastatin 40 mg oral tablet (20 sources) HMG-CoA Reductase Inhibitor Start: 01-20-2022 End: 09-27-2024 take 1 tablet by mouth once daily Atorvastatin 40 mg tablet Active 40 mg PO DAILY 90 September 27, 2024 7:50am Start: 09-15-2020 End: 01-20-2022 take 1 tablet by mouth once daily Atorvastatin 10 mg tablet Discontinued 10 mg PO DAILY 90 3 March 01, 2021 1:47pm July 26, 2021 9:14am Start: 09-15-2020 End: 11-02-2020 Atorvastatin 10 mg tablet Discontinued NMA PO September 15, 2020 12:00am November 02, 2020 9:35am Start: 04-02-2020 End: 05-12-2020 take 1 tablet by mouth once daily Atorvastatin 10 mg tablet Discontinued 10 mg PO DAILY 30 April 02, 2020 1:00am May 12, 2020 11:36am Start: 12-15-2018 End: 04-25-2019 take 1 tablet by mouth at bedtime Atorvastatin 80 MG tablet Discontinued 80 mg PO AT BEDTIME 30 December 15, 2018 12:00am April 25, 2019 9:03am Start: 06-19-2013 End: 07-19-2018 take 1 tablet by mouth at bedtime Atorvastatin 80 MG tablet Discontinued 80 mg PO AT BEDTIME January 14, 2014 1:00am July 19, 2018 3:50pm Start: 10-29-2010 End: 05-23-2012 take 1 tablet by mouth once daily LIPITOR 40 MG TABS One tablet by mouth daily ATORVASTATIN CALCIUM [id number] Lori Hall Flash Glucose Sensor (Freest yle Moses 14 Day Sensor) kit (10 sources) Start: 10-19-2021 Flash Glucose Sensor (Freestyle Moses 14 Day Sensor) kit Active 0 NMA .ROUTE .MEDSUPPLY October 19, 2021 12:00am As directed Start: 10-19-2021 Flash Glucose Sensor (Freestyle Moses 14 Day Sensor) kit Active 0 EACH .ROUTE .MEDSUPPLY October 19, 2021 12:00am As directed Start: 10-19-2021 Flash Glucose Sensor (Freestyle Moses 14 Day Sensor) kit Active 0 EACH .ROUTE .MEDSUPPLY October 18, 2021 11:00pm As directed 3 ml insulin degludec 100 unt/ml pen injector (16 sources) Insulin Analog Start: 10-19-2021 Insulin Deglud ec (Tresiba Flextouch U-100) 100 unit/mL (3 mL) insulin pen Active 50 UNIT SC DAILY October 19, 2021 8:05am Start: 04-25-2019 End: 10-19-2021 Insulin Degludec (Tresiba Fl extouch U-100) 100 unit/mL (3 mL) insulin pen Discontinued 30 U SC DAILY April 25, 2019 12:00am October 19, 2021 9:07am Insulin Degludec (Tresiba Flextouch U-100) 100 unit/mL (3 mL) insulin pen (6 sources) Start: 10-19-2021 Insulin Deglud ec (Tresiba Flextouch U-100) 100 unit/mL (3 mL) insulin pen Active 50 U SC DAILY October 19, 2021 9:05am type II diabetes Start: 10-19-2021 Insulin Deglud ec (Tresiba Flextouch U-100) 100 unit/mL (3 mL) insulin pen Active 50 U SC DAILY October 19, 2021 9:05am Start: 10-19-2021 Insulin Deglud ec (Tresiba Flextouch U-100) 100 unit/mL (3 mL) insulin pen Active 50 UNIT SC DAILY October 19, 2021 9:05am Start: 10-19-2021 Insulin Deglud ec (Tresiba Flextouch U-100) 100 unit/mL (3 mL) insulin pen Active 50 UNIT SC DAILY October 19, 2021 8:05am 3 ml insulin lispro 100 unt/ml pen injector (12 sources) Insulin Analog Start: 12-14-2023 Insulin Lispro (Humalog Kwikpen Insulin) 100 unit/mL Insulin Pen Active 10 U SC 3 TIMES DAILY WITH MEALS 0 0 December 14, 2023 12:00am Start: 12-14-2023 Insulin Lispro (Humalog Kwikpen Insulin) 100 unit/mL Insulin Pen Active 0 U SC BEFORE MEALS AND AT BEDTIME 0 0 December 14, 2023 12:00am Please contact the information source for Protocol details. Start: 12-07-2023 End: 12-14-2023 Insulin Lispro (Humalog Kwik pen Insulin) 100 unit/mL insulin pen Discontinued 30 U SC 3 TIMES DAILY WITH MEALS December 07, 2023 12:00am December 14, 2023 11:33am Start: 10-29-2010 End: 05-23-2012 HUMALOG 100 UNIT/ML MANI bowen as directed INSULIN LISPRO (HUMAN) [id number] Mario Knight levothyroxine sodium 0.025 mg oral tablet (2 sources) l-Thyroxine Start: 12-07-2023 take 1 tablet by mouth once daily Levothyroxine 25 mcg tablet Active 25 ug PO DAILY December 07, 2023 12:00am linezolid 600 mg oral tablet (2 sources) Oxazolidinone Antibacterial Start: 12-13-2023 take 1 tablet by mouth twice daily Linezolid 600 mg tablet Active 600 mg PO TWICE A DAY 14 0 December 13, 2023 12:00am losartan potassium 50 mg oral tablet (20 sources) Angiotensin 2 Receptor Arti Start: 07-26-2021 take 1 tablet by mouth once daily Losartan 50 mg tablet Active 50 mg PO DAILY 90 July 26, 2021 4:04pm bp Start: 07-26-2021 End: 07-26-2021 Losartan 100 mg tablet Disco ntinued 25 mg PO DAILY July 26, 2021 9:11am July 26, 2021 9:32am Start: 07-26-2021 End: 07-26-2021 take 25 mg by mouth once daily Losartan Discontinued 2 5 MG PO DAILY July 26, 2021 9:11am July 26, 2021 9:32am Start: 07-26-2021 End: 07-26-2021 take 1 tablet by mouth once daily Losartan 25 mg tablet Discontinued 25 mg PO DAILY July 26, 2021 12:00am July 26, 2021 4:05pm Start: 03-01-2021 End: 07-26-2021 take 1 tablet by mouth once daily Losartan 100 mg tablet Discontinued 100 mg PO DAILY March 01, 2021 1:00am July 26, 2021 9:15am Start: 11-16-2020 End: 11-16-2020 take 1 tablet by mouth once daily Losartan 25 mg tablet Discontinued 25 mg PO DAILY November 16, 2020 12:00am November 16, 2020 10:27am Start: 05-12-2020 End: 11-16-2020 take 1 tablet by mouth once daily Losartan 100 mg tablet Discontinued 100 mg PO DAILY 90 May 12, 2020 11:49am November 16, 2020 10:05am Start: 05-12-2020 End: 05-12-2020 take 1 tablet by mouth once daily Losartan 25 mg tablet Discontinued 25 mg PO DAILY May 12, 2020 12:00am May 12, 2020 11:50am Start: 12-06-2013 End: 05-24-2018 take 1 tablet by mouth once daily Losartan 25 MG tablet Discontinued 25 mg PO DAILY January 14, 2014 1:00am May 24, 2018 3:20pm melatonin 3 mg oral tablet (2 sources) Start: 12-14-2023 take 1 tablet by mouth at bedtime as needed Melatonin 3 mg Tablet Active 3 mg PO AT BEDTIME NEEDED as needed for Insomnia 0 0 December 14, 2023 12:00am metFORMIN hydrochloride 1000 mg oral tablet (20 sources) Biguanide Start: 04-02-2020 take 1 tablet by mouth twice daily Metformin 1,000 mg tablet Active 1000 mg PO TWICE A DAY April 02, 2020 1:00am type II diabetes Start: 05-20-2019 End: 04-02-2020 Metformin 500 mg tablet exte nded release 24 hr Discontinued 1000 mg PO TWICE A DAY May 20, 2019 1:18pm April 02, 2020 12:42pm Start: 05-20-2019 End: 04-02-2020 take 1000 mg by mouth twice daily Metformin Discontinued 1000 MG PO TWICE A DAY May 20, 2019 1:18pm April 02, 2020 12:42pm Start: 12-15-2018 End: 05-20-2019 take 2 tablets by mouth once daily Metformin 500 MG tablet Discontinued 1000 mg PO DAILY 60 December 15, 2018 12:00am May 20, 2019 1:20pm Start: 12-15-2018 End: 05-20-2019 take 1000 mg by mouth once daily Metformin Discontinued 1000 MG PO DAILY 60 December 15, 2018 12:00am May 20, 2019 1:20pm Start: 05-19-2017 End: 12-15-2018 take 1 tablet by mouth once daily Metformin 1,000 mg tablet Discontinued 1000 mg PO DAILY May 19, 2017 12:00am December 15, 2018 11:48am Start: 06-26-2013 take 1 tablet by jocelin th twice daily METFORMIN HCL 1000 MG TABS One tablet by mouth twice daily METFORMIN HCL [id number] Baudilio Lombardo DO Start: 12-18-2012 End: 05-19-2017 take 2 tablets by mouth twice daily Metformin 500 MG tablet Discontinued 1000 mg PO TWICE A DAY December 18, 2012 1:00am May 19, 2017 12:04pm Start: 12-18-2012 End: 05-19-2017 take 1000 mg by mouth twice daily Metformin Discontinued 1000 MG PO TWICE A DAY December 18, 2012 1:00am May 19, 2017 12:04pm Start: 10-29-2010 End: 05-23-2012 take 1 tablet by mouth twice daily GLUCOPHAGE 500 MG TABS One tablet by mouth twice daily METFORMIN HCL [id number] Lori Villegasward 24 hr metoprolol succinate 50 mg extended release oral tablet (20 sources) beta-Adrenergic Arti Start: 04-19-2024 take 1 tablet by mouth once daily Metoprolol Succinate 50 mg tablet extended release 24 hr Active 50 mg PO daily April 19, 2024 1:00am Start: 12-07-2023 End: 04-19-2024 take 1 tablet by mouth once daily Metoprolol Succinate 100 mg tablet extended release 24 hr Discontinued 100 mg PO DAILY December 07, 2023 12:00am April 19, 2024 10:01am Start: 03-01-2021 End: 12-07-2023 take 1 tablet by mouth once daily Metoprolol Succinate 50 mg tablet extended release 24 hr Discontinued 50 mg PO DAILY August 23, 2022 4:45pm December 07, 2023 2:27pm Start: 05-12-2020 End: 11-16-2020 take 1 tablet by mouth once daily Metoprolol Succinate (Toprol Xl) 50 mg tablet extended release 24 hr Discontinued 50 mg PO DAILY May 12, 2020 12:00am November 16, 2020 10:05am Start: 06-19-2013 End: 06-26-2013 take 1 tablet by mouth twice daily METOPROLOL TARTRATE 25 MG TABS One tablet by mouth twice daily METOPROLOL TARTRATE [id number] Sheng Pritchard MD nitroglycerin 0.4 mg sublingual tablet (2 sources) Nitrate Vasodilator Start: 04-19-2024 Nitroglyce rin (Nitrostat) 0.4 mg tablet, sublingual Active 0.4 mg SL every 5 to 15 minutes as needed for chest pain 07 05April 19, 2024 1:00am do not exceed 3 doses per episode Pen Needle, Diabetic (10 sources) Start: 04-02-2020 Pen Needle, Di abetic Active 0 EACH .ROUTE .MEDSUPPLY 1200 April 02, 2020 12:00am As directed Start: 04-02-2020 Pen Needle, Di abetic Active 0 EACH .ROUTE .MEDSUPPLY 1200 April 02, 2020 1:00am As directed Completed/Discontinued Medications Medication Drug Class(es) Dates Sig (Normalized) Sig (Original) acetaminophen 500 mg oral tablet (2 sources) Start: 12-14-2023 End: 05-23-2024 take 2 tablets by mouth every eight hours Acetaminophen 500 mg Tablet Discontinued 1000 mg PO EVERY 8 HOURS 0 December 14, 2023 12:00am May 23, 2024 8:56am apixaban 5 mg oral tablet (20 sources) Factor Xa Inhibitor Start: 12-19-2019 End: 05-10-2024 take 1 tablet by mouth twice daily Apixaban (Eliquis) 5 mg tablet Discontinued 0 .ROUTE .COMPLEX 60 11 April 10, 2023 2:32pm May 10, 2024 8:34am TAKE 1 TABLET BY MOUTH TWICE A DAY aspirin 81 mg chewable tablet (20 sources) Platelet Aggregation Inhibitor, Nonsteroidal Anti-inflammatory Drug Start: 01-20-2022 take 81 mg by mouth once daily Aspirin Active 81 MG PO DAILY January 20, 2022 12:00am Start: 01-14-2014 End: 07-26-2021 take 1 tablet by mouth once daily Aspirin 81 MG tablet,chewable Discontinued 81 mg PO DAILY@0800 January 14, 2014 1:00am July 26, 2021 9:35am Start: 06-19-2013 take 1 tablet by jocelin th once daily ASPIRIN EC 81 MG TBEC One tablet by mouth daily ASPIRIN [id number] Yesica Benjamin RN Start: 10-29-2010 End: 05-23-2012 take 1 tablet by mouth once daily ASPIRIN 81 MG TABS One tablet by mouth daily ASPIRIN [id number] Fara Bernal, azithromycin 250 mg oral tablet (20 sources) Macrolide Antimicrobial Start: 08-27-2020 End: 09-23-2020 Azithromycin 250 mg tablet Discontinued 250 mg PO daily 12 August 27, 2020 12:00am September 23, 2020 8:20am 2 tablets today, then 1 tablet daily on days 2 through 11 Start: 11-26-2019 End: 12-04-2019 take 2-5 tablets by mouth once daily Azithromycin 250 mg tablet Discontinued 0 PO .COMPLEX 6 0 November 26, 2019 12:00am December 04, 2019 10:03am take 500 mg today (day 1), then 250 mg for 4 days (days 2-5) PO Start: 11-26-2019 End: 12-04-2019 Azithromycin Discontinued 0 PO .COMPLEX 6 November 26, 2019 12:00am December 04, 2019 10:03am take 500 mg today (day 1), then 250 mg for 4 days (days 2-5) PO Blood pressure monitor and cuff (12 sources) Start: 08-14-2018 End: 09-03-2018 Blood pressure monitor and c uff Discontinued 1 August 14, 2018 12:00am September 03, 2018 3:59pm As directed Start: 08-14-2018 End: 09-03-2018 Blood pressure monitor and c uff Discontinued August 13, 2018 11:00pm September 03, 2018 2:59pm As directed Start: 08-14-2018 End: 09-03-2018 Blood pressure monitor and c uff Discontinued August 14, 2018 12:00am September 03, 2018 3:59pm As directed Calcium Carbonate / Vitamin D (6 sources) Start: 10-07-2014 take 1 tablet by mouth once daily CALCIUM + D 600-200 MG-UNIT TABS One tablet by mouth daily CALCIUM CARBONATE-VITAMIN D Sheng Pritchard MD Start: 10-07-2014 End: 10-23-2015 take 1 tablet by mouth once daily CALCIUM + D 600-200 MG-UNIT TABS One tablet by mouth daily CALCIUM CARBONATE-VITAMIN D Sheng Pritchard MD carvedilol 25 mg oral tablet (20 sources) alpha-Adrenergic Arti, beta-Adrenergic Arti Start: 11-16-2020 End: 03-01-2021 take 1 tablet by mouth twice daily at mealtime Carvedilol (Coreg) 25 mg tablet Discontinued 25 mg PO TWICE A DAY November 16, 2020 12:00am March 01, 2021 12:57pm must administer with a meal/food Start: 05-19-2017 End: 05-12-2020 take 1 tablet by mouth twice daily Carvedilol 25 mg tablet Discontinued 25 mg PO TWICE A DAY May 19, 2017 12:00am May 12, 2020 11:36am Start: 06-19-2013 take 1 tablet by jocelin th twice daily CARVEDILOL 25 MG TABS One tablet by mouth twice daily CARVEDILOL [id number] Sheng Pritchard MD Start: 10-29-2010 End: 05-19-2017 take 1 tablet by mouth twice daily Carvedilol 12.5 MG tablet Discontinued 12.5 mg PO TWICE A DAY December 18, 2012 1:00am May 19, 2017 12:01pm take 0.5 tablet by [facility] twice daily CARVEDILOL 25 MG TABS One-half tablet by mouth twice daily. CARVEDILOL [id number] Kirill Roland cefdinir 300 mg oral capsule (2 sources) Cephalosporin Antibacterial Start: 12-13-2023 End: 04-19-2024 take 1 capsule by mouth twice daily Cefdinir 300 mg capsule Discontinued 300 mg PO TWICE A DAY 14 0 December 13, 2023 12:00am April 19, 2024 10:01am cephalexin 500 mg oral capsule (11 sources) Cephalosporin Antibacterial Start: 09-16-2021 End: 10-19-2021 take 1 capsule by mouth every six hours Cephalexin 500 mg capsule Discontinued 500 mg PO EVERY 6 HOURS 28 7 0 September 16, 2021 12:00am October 19, 2021 9:02am cholecalciferol 0.05 mg oral capsule (20 sources) Vitamin D Start: 05-20-2019 End: 12-07-2023 take 1 capsule by mouth once daily Cholecalciferol (Vitamin D3) 50 mcg (2,000 unit) capsule Discontinued 2000 U PO DAILY May 20, 2019 12:00am December 07, 2023 2:32pm vitamin Start: 05-23-2017 End: 05-20-2019 take 1 capsule by mouth two times weekly Cholecalciferol (Vitamin D3) 50,000 unit capsule Discontinued 03923 U PO .COMPLEX May 23, 2017 10:19am May 20, 2019 1:17pm 50,000 unit PO twice a week; 2x a week Start: 08-30-2016 End: 05-23-2017 take 1 capsule by mouth every week Cholecalciferol (Vitamin D3) 50,000 UNIT capsule Discontinued 59401 U PO EVERY WEEK August 30, 2016 12:00am May 23, 2017 10:19am cilostazol 50 mg oral tablet (5 sources) Phosphodiesterase 3 Inhibitor Start: 05-23-2024 End: 09-06-2024 take 1 tablet by mouth twice daily Cilostazol 50 mg tablet Discontinued 50 mg PO TWICE A DAY 180 1 September 06, 2024 7:14am September 06, 2024 7:14am clopidogrel 75 mg oral tablet (20 sources) [id number] Platelet Inhibitor Start: 07-26-2021 End: 07-26-2021 take 1 tablet by mouth once daily Clopidogrel (Plavix) 75 mg tablet Discontinued 75 mg PO DAILY July 26, 2021 12:00am July 26, 2021 3:57pm Start: 11-16-2020 End: 11-16-2020 take 1 tablet by mouth once daily Clopidogrel (Plavix) 75 mg tablet Discontinued 75 mg PO DAILY November 16, 2020 12:00am November 16, 2020 10:26am Start: 05-12-2020 End: 05-12-2020 take 1 tablet by mouth once daily Clopidogrel 75 mg tablet Discontinued 75 mg PO DAILY May 12, 2020 12:00am May 12, 2020 11:48am Start: 12-15-2018 End: 12-19-2019 take 1 tablet by mouth once daily Clopidogrel 75 MG tablet Discontinued 75 mg PO DAILY 30 December 15, 2018 12:00am December 19, 2019 3:28pm docusate sodium 50 mg / sennosides, intermediate 8.6 mg oral tablet (2 sources) Start: 12-14-2023 End: 05-23-2024 Sennosides-Docusate Sodium (Stimulant Laxative Plus) 8.6-50 mg Tablet Discontinued 2 {tbl} PO TWICE DAILY NEEDED as needed for Constipation 0 December 14, 2023 12:00am May 23, 2024 8:57am doxycycline monohydrate 100 mg oral capsule (14 sources) Tetracyclin e-class Drug Start: 09-25-2023 End: 12-07-2023 take 1 capsule by mouth twice daily Doxycycline Monohydrate 100 mg capsule Discontinued 100 mg PO TWICE A DAY 20 0 September 25, 2023 12:00am December 07, 2023 2:32pm Start: 07-19-2019 End: 07-29-2019 take 1 capsule by mouth twice daily Doxycycline Hyclate 100 mg capsule Discontinued 100 mg PO TWICE A DAY 20 10 0 July 19, 2019 12:00am July 28, 2019 12:00am July 29, 2019 12:02am Acute sinusitis, unspecified fluconazole 200 mg oral tablet (6 sources) Azole Antifungal Start: 02-26-2015 End: 10-23-2015 FLUCONAZOLE 200 MG TABS 1 po daily x 1 dose, may repeat in 5 days if no better FLUCONAZOLE [id number] Fara Bernal, DO 120 actuat formoterol fumarate 0.005 mg/actuat / mometasone furoate 0.2 mg/actuat metered dose inhaler (20 sources) Corticosteroid, beta2-Adrenergic Agonist Start: 05-19-2017 End: 05-12-2020 Mometasone-Formoterol (Dulera) 200-5 mcg/actuation HFA aerosol inhaler Discontinued 2 NMA INHALATION TWICE A DAY as needed for Sob &/Or Wheezing May 19, 2017 12:00am May 12, 2020 11:37am On Hold: Order Changed Start: 05-19-2017 End: 05-12-2020 take 1 puff(s) by inhalation twice daily Mometasone-Formoterol (Dulera) 200-5 mcg/actuation HFA aerosol inhaler Discontinued 2 PUFF INHALATION TWICE A DAY May 19, 2017 12:00am May 12, 2020 11:37am On Hold: Order Changed Start: 05-10-2016 End: 05-19-2017 Dulera 200 Mcg/5 Mcg Inhaler Discontinued 2 INHALER INHALATION NEEDED as needed for Sob &/Or Wheezing May 10, 2016 12:00am May 19, 2017 12:03pm Start: 05-10-2016 End: 05-19-2017 Dulera 200 Mcg/5 Mcg Inhaler Discontinued 2 INHALER INHALATION NEEDED May 09, 2016 11:00pm May 19, 2017 11:03am Start: 05-10-2016 End: 05-19-2017 Dulera 200 Mcg/5 Mcg Inhaler Discontinued 2 INHALER INHALATION NEEDED May 10, 2016 12:00am May 19, 2017 12:03pm Start: 04-10-2014 DULERA 200-5 M CG/ACT AERO 2 puffs as needed MOMETASONE FURO-FORMOTEROL FUM [id number] Baudilio Lombardo DO furosemide 40 mg oral tablet (20 sources) Loop Diuretic Start: 03-01-2021 End: 12-07-2023 take 1 tablet by mouth once daily in the morning Furosemide 40 mg tablet Discontinued 0 .ROUTE .COMPLEX 90 3 April 10, 2023 2:32pm December 07, 2023 4:22pm On Hold: Duplicate Order TAKE 1 TABLET BY MOUTH EVERY DAY IN THE MORNING Start: 11-16-2020 End: 03-01-2021 take 1 tablet by mouth twice daily Furosemide 20 mg tablet Discontinued 20 mg PO TWICE A DAY November 16, 2020 10:03am March 01, 2021 12:44pm Start: 09-15-2020 End: 11-16-2020 take 1 tablet by mouth once daily Furosemide 20 mg tablet Discontinued 20 mg PO DAILY September 15, 2020 12:00am November 16, 2020 10:05am Start: 05-12-2020 End: 11-16-2020 take 1 tablet by mouth once daily Furosemide 40 mg tablet Discontinued 40 mg PO DAILY 90 3 June 08, 2020 5:09pm November 16, 2020 10:04am Start: 04-02-2020 End: 05-12-2020 take 1 tablet by mouth twice daily Furosemide 40 mg tablet Discontinued 40 mg PO TWICE A DAY April 02, 2020 1:00am May 12, 2020 11:37am Start: 09-20-2019 End: 04-02-2020 Furosemide 20 mg tablet Disc ontinued 40 mg PO .COMPLEX September 20, 2019 2:15pm April 02, 2020 12:43pm 40 mg PO 40 mg in the AM and 20 mg in the PM; Start: 09-20-2019 End: 04-02-2020 Furosemide Discontinued 40 M G PO .COMPLEX September 20, 2019 2:15pm April 02, 2020 12:43pm 40 mg PO 40 mg in the AM and 20 mg in the PM; Start: 09-04-2019 End: 09-20-2019 take 1 tablet by mouth once daily as needed Furosemide 40 MG tablet Discontinued 40 mg PO DAILY NEEDED September 04, 2019 3:00pm September 20, 2019 1:43pm Start: 09-04-2019 End: 09-20-2019 take 1 tablet by mouth at bedtime Furosemide 20 mg tablet Discontinued 20 mg PO AT BEDTIME September 20, 2019 1:42pm September 20, 2019 2:16pm Start: 05-20-2019 End: 05-20-2019 take 2 tablets by mouth twice daily Furosemide 20 mg tablet Discontinued 40 mg PO TWICE A DAY May 20, 2019 1:17pm May 20, 2019 1:55pm Start: 05-20-2019 End: 05-20-2019 take 40 mg by mouth twice daily Furosemide Discontinue d 40 MG PO TWICE A DAY May 20, 2019 1:17pm May 20, 2019 1:55pm Start: 05-20-2019 End: 09-04-2019 take 1 tablet by mouth twice daily Furosemide 40 mg tablet Discontinued 40 mg PO TWICE A DAY 6 May 20, 2019 12:00am September 04, 2019 3:00pm Start: 04-25-2019 End: 05-20-2019 take 1 tablet by mouth twice daily Furosemide 20 mg tablet Discontinued 20 mg PO TWICE A DAY April 25, 2019 12:00am May 20, 2019 1:20pm gentamicin 0.003 mg/mg ophthalmic ointment (6 sources) Start: 10-29-2010 End: 05-23-2012 take 1 drop(s) into the eye(s) every four hours GARAMYCIN 0.3 % OINT Ophthalmic, 1 drop in left eye every 4 hrs GENTAMICIN SULFATE [id number] Lori Hall glipiZIDE 5 mg oral tablet (20 sources) Sulfonylurea Start: 07-26-2021 End: 10-19-2021 take 1 tablet by mouth once daily Glipizide 5 mg tablet Discontinued 5 mg PO DAILY July 26, 2021 12:00am October 19, 2021 9:04am Start: 09-04-2019 End: 11-16-2020 take 1 tablet by mouth once daily Glipizide 5 MG tablet Discontinued 5 mg PO DAILY@0730 September 04, 2019 12:00am November 16, 2020 10:02am Start: 08-31-2017 End: 12-15-2018 take 1 tablet by mouth once daily Glipizide 2.5 MG tablet extended release 24hr Discontinued 2.5 mg PO DAILY August 31, 2017 12:00am December 15, 2018 11:48am GLUCOSE BLOOD (6 sources) Start: 10-29-2010 End: 05-06-2016 FREESTYLE TEST STRP Check breaux gars 4 times daily DX 250.02 GLUCOSE BLOOD [id number] Sheng Pritchard MD Start: 10-29-2010 FREESTYLE TEST STRP Check sugars 4 times daily DX 250.02 GLUCOSE BLOOD [id number] Fara Bernal DO hydroCHLOROthiazide 25 mg oral tablet (20 sources) Thiazide Diuretic Start: 04-10-2014 HYDROCHLOROTHIAZIDE 25 MG TABS HOLD HYDROCHLOROTHIAZIDE [id number] Darien Wilcox NP Start: 09-06-2013 End: 12-06-2013 take 1 tablet by mouth once daily HYDROCHLOROTHIAZIDE 25 MG TABS One tablet by mouth daily HYDROCHLOROTHIAZIDE [id number] Sheng Pritchard MD Start: 06-19-2013 End: 06-26-2013 take 1 tablet by mouth once daily HYDROCHLOROTHIAZIDE 25 MG TABS One tablet by mouth daily HYDROCHLOROTHIAZIDE [id number] Sheng Pritchard MD Start: 10-29-2010 End: 05-23-2012 take 1 tablet by mouth once daily HYDROCHLOROTHIAZIDE 12.5 MG TABS One tablet by mouth daily HYDROCHLOROTHIAZIDE [id number] Lori Hall IBUPROFEN TABS (6 sources) Nonsteroidal Anti-inflammatory Drug End: 06-26-2013 ADVIL TABS 600 mg twice daily IBUPROFEN TABS [id number] Sheng Pritchard MD ADVIL TABS 600 m g twice daily IBUPROFEN TABS [id number] Mario Knight 3 ml insulin detemir 100 unt/ml pen injector (18 sources) Insulin Analog Start: 09-23-2015 LEVEMIR FLEXTO UCH 100 UNIT/ML SOPN Inject 70 units twice daily INSULIN DETEMIR [id number] Baudilio Lombardo DO Start: 10-29-2010 LEVEMIR 100 UN IT/ML SOLN Take as directed INSULIN DETEMIR [id number] Lori Hall Start: 10-29-2010 End: 06-26-2014 LEVEMIR FLEXTOUCH 100 UNIT/M L SOPN 70 units subcutaneously twice daily INSULIN DETEMIR [id number] Fara Bernal DO End: 09-23-2015 LEVEMIR 100 UNIT/ML SOLN Inj ect 70 units twice daily INSULIN DETEMIR [id number] Baudilio Lombardo DO 3 ml insulin glargine 100 unt/ml pen injector (20 sources) Insulin Analog Start: 12-15-2018 End: 04-25-2019 Insulin Glargine 100 UNIT/ML insulin pen Discontinued 60 U SC TWICE A DAY 1 0 December 15, 2018 11:49am April 25, 2019 9:01am Start: 09-03-2018 End: 12-15-2018 inject 70 [IU] by subcutaneous injection twice daily Insulin Glargine 100 UNIT/ML insulin pen Discontinued 70 U subcut TWICE A DAY September 03, 2018 12:00am December 15, 2018 11:49am Start: 06-26-2014 End: 09-04-2014 LANTUS SOLOSTAR 100 UNIT/ML SOPN 70 units injected subcutaneously twice daily INSULIN GLARGINE [id number] Fara Bernal DO Start: 06-19-2013 End: 06-26-2013 LANTUS 100 UNIT/ML SOLN as directed INSULIN GLARGINE [id number] Sheng Pritchard MD 3 ml insulin aspart, human 100 unt/ml pen injector (20 sources) Insulin Analog Start: 08-23-2022 End: 12-07-2023 inject 30 [IU] by subcutaneous injection at dinner Insulin Aspart U-100 100 unit/mL (3 mL) insulin pen Discontinued 30 U SC .COMPLEX August 23, 2022 10:15am December 07, 2023 2:34pm type II diabetes 30 units subcutaneously 30 units at lunch and dinner; Start: 08-23-2022 End: 12-07-2023 Insulin Aspart U-100 100 uni t/mL (3 mL) insulin pen Discontinued 40 U SC WITH BREAKFAST August 23, 2022 10:15am December 07, 2023 2:33pm DM II sliding scale Start: 01-20-2022 End: 08-23-2022 Insulin Aspart U-100 100 uni t/mL (3 mL) insulin pen Discontinued 30 U SC THREE TIMES A DAY January 20, 2022 11:50am August 23, 2022 10:20am Start: 10-19-2021 End: 08-23-2022 Insulin Aspart U-100 100 uni t/mL (3 mL) insulin pen Discontinued 30 U SC WITH BREAKFAST October 19, 2021 9:06am August 23, 2022 10:20am sliding scale Start: 09-04-2019 End: 01-20-2022 Insulin Aspart U-100 100 UNI TS/ML insulin pen Discontinued 30 U SC TWICE DAILY WITH MEALS September 04, 2019 12:00am January 20, 2022 11:53am Start: 09-04-2019 End: 01-20-2022 Insulin Aspart U-100 Discont inued 30 UNITS SC TWICE DAILY WITH MEALS September 04, 2019 12:00am January 20, 2022 11:53am Start: 04-25-2019 End: 10-19-2021 Insulin Aspart U-100 100 uni t/mL (3 mL) insulin pen Discontinued 40 U SC WITH BREAKFAST April 25, 2019 9:02am October 19, 2021 9:07am sliding scale Start: 12-15-2018 End: 04-25-2019 Insulin Aspart U-100 100 uni t/mL insulin pen Discontinued 40 U SC THREE TIMES A DAY 1 0 December 15, 2018 11:49am April 25, 2019 9:03am Start: 04-10-2014 NOVOLOG FLEXPE N 100 UNIT/ML SOPN 30 units three times daily INSULIN ASPART [id number] Baudilio Lombardo DO Start: 04-10-2014 NOVOLOG FLEXPE N 100 UNIT/ML SOPN 20 units three times daily INSULIN ASPART [id number] Fara Bernal DO Start: 12-18-2012 End: 05-19-2017 Insulin Aspart U-100 100 UNI TS/ML insulin pen Discontinued 50 U SC THREE TIMES A DAY December 18, 2012 1:00am May 19, 2017 12:05pm Start: 12-18-2012 End: 12-15-2018 Insulin Aspart U-100 100 uni t/mL insulin pen Discontinued 50 U SC THREE TIMES A DAY May 19, 2017 12:01pm December 15, 2018 11:49am NOVOLOG FLEXPEN SOLN 10 units 3 times daily INSULIN ASPART SOLN Mario Renteriapp 24 hr isosorbide mononitrate 30 mg extended release oral tablet (20 sources) Nitrate Vasodilator Start: 07-26-2018 End: 07-26-2021 take 1 tablet by mouth once daily Isosorbide Mononitrate 30 mg tablet extended release 24 hr Discontinued 0 .ROUTE .COMPLEX 90 3 March 01, 2021 1:46pm July 26, 2021 3:57pm TAKE 1 TABLET BY MOUTH EVERY DAY lidocaine 0.05 mg/mg medicated patch (11 sources) Antiarrhythmic, Amide Local Anesthetic Start: 09-16-2021 End: 01-20-2022 Lidocaine (Lidoderm) 5 % adhesive patch,medicated Discontinued 1 NMA TOPICAL DAILY 15 0 September 16, 2021 12:00am January 20, 2022 11:52am leave on most painful area for up to 12 hrs lisinopril 20 mg oral tablet (12 sources) Angiotensin Converting Enzyme Inhibitor Start: 06-26-2013 take 1 tablet by mouth once daily LISINOPRIL 10 MG TABS One tablet by mouth daily LISINOPRIL [id number] Sheng Pritchard MD Start: 06-26-2013 End: 12-06-2013 take 1 tablet by mouth once daily LISINOPRIL 20 MG TABS One tablet by mouth daily LISINOPRIL [id number] Yesica Narvaez PA-C magnesium oxide 400 mg oral tablet (18 sources) Start: 11-25-2014 End: 04-25-2019 take 1 tablet by mouth once daily Magnesium Oxide 400 MG tablet Discontinued 400 mg PO DAILY August 30, 2016 12:00am April 25, 2019 9:03am Start: 11-25-2014 take 1 tablet by jocelin once daily MAGNESIUM OXIDE 400 MG CAPS One tablet by mouth daily MAGNESIUM OXIDE [id number] Yesica Narvaez PA-C meloxicam 15 mg oral tablet (6 sources) Nonsteroidal Anti-inflammatory Drug Start: 06-19-2013 MELOXICAM 15 MG T ABS 1/2 tablet daily MELOXICAM [id number] Justine Vegas RN Start: 06-19-2013 take 1 tablet by jocelin th once daily MOBIC 7.5 MG TABS One tablet by mouth daily MELOXICAM [id number] Baudilio Lombardo DO methylPREDNISolone 4 mg oral tablet (4 sources) Corticosteroid Start: 05-05-2023 End: 05-11-2023 take 1 tablet by mouth once Methylprednisolone (Medrol (Stepan)) 4 mg tablets,dose pack Discontinued 4 mg PO per package directions 21 6 0 May 05, 2023 12:00am May 10, 2023 12:00am May 11, 2023 12:05am metroNIDAZOLE 500 mg oral tablet (2 sources) Nitroimidazole Antimicrobial Start: 12-13-2023 End: 04-19-2024 take 1 tablet by mouth three times daily Metronidazole 500 mg Tablet Discontinued 500 mg PO THREE TIMES A DAY 7 December 13, 2023 12:00am April 19, 2024 10:02am montelukast 10 mg oral tablet (3 sources) Leukotriene Receptor Antagonist Start: 04-10-2014 take 1 tablet by mouth once daily SINGULAIR 10 MG TABS One tablet by mouth daily MONTELUKAST SODIUM [id number] Baudilio Lombardo DO omeprazole 20 mg delayed release oral tablet (20 sources) Proton Pump Inhibitor Start: 05-10-2016 End: 05-23-2017 take 1 tablet by mouth once daily Omeprazole 20 MG tablet,delayed release (DR/EC) Discontinued 20 mg PO DAILY May 10, 2016 12:00am May 23, 2017 10:19am Start: 05-06-2016 take 1 tablet by jocelin once daily OMEPRAZOLE 20 MG CPDR One tablet by mouth daily OMEPRAZOLE [id number] Sheng Pritchard MD Start: 06-19-2013 End: 06-26-2013 take 1 tablet by mouth once daily PRILOSEC 40 MG CPDR One tablet by mouth daily OMEPRAZOLE [id number] Justine Vegas RN Start: 03-04-2011 End: 05-23-2012 take 1 tablet by mouth once daily PRILOSEC 40 MG CPDR One tablet by mouth daily OMEPRAZOLE [id number] Mario Knight oxyCODONE hydrochloride 5 mg oral tablet (2 sources) Opioid Agonist Start: 12-14-2023 End: 05-23-2024 take 1 tablet by mouth every four hours as needed for pain Oxycodone 5 mg Tablet Discontinued 5 mg PO EVERY 4 HOURS NEEDED as needed for Pain Score 4-10 14 3 0 December 14, 2023 May 23, 2024 8:56am Diabetic infection of right foot Type 2 diabetes mellitus with other skin complications Local infection of the skin and subcutaneous tissue, unspecified pantoprazole 40 mg delayed release oral tablet (20 sources) Proton Pump Inhibitor Start: 05-19-2017 End: 05-23-2017 take 1 tablet by mouth once daily as needed Pantoprazole (Protonix) 40 mg tablet,delayed release (DR/EC) Discontinued 40 mg PO daily as needed May 19, 2017 12:00am May 23, 2017 10:17am Start: 06-19-2013 take 1 tablet by jocelin th once daily PROTONIX 40 MG TBEC One tablet by mouth daily PANTOPRAZOLE SODIUM [id number] Baudilio Lombardo DO microencapsulated potassium chloride 20 meq extended release oral tablet (20 sources) Start: 07-19-2018 End: 05-12-2020 take 1 tablet by mouth once daily Potassium Chloride 20 mEq tablet,ER particles/crystals Discontinued 20 meq PO DAILY 30 0 July 19, 2018 12:00am May 12, 2020 11:49am Start: 05-19-2017 End: 05-24-2018 take 1 tablet by mouth once daily Potassium Chloride 20 mEq tablet extended release Discontinued 20 meq PO daily May 19, 2017 12:00am May 24, 2018 3:23pm Start: 05-06-2016 take 1 tablet by jocelin th once daily POTASSIUM CHLORIDE ER 20 MEQ CR-TABS One tablet by mouth daily POTASSIUM CHLORIDE [id number] Sheng Pritchard MD potassium,chelated 99 mg oral tablet (6 sources) Start: 06-19-2013 End: 06-26-2013 take 1 tablet by mouth once daily as needed POTASSIUM 99 MG TABS One tablet by mouth daily as needed POTASSIUM [id number] Sheng Pritchard MD predniSONE 10 mg oral tablet (2 sources) Start: 05-21-2024 End: 10-08-2024 take 3 tablets by mouth once daily, then take 2 tablets by mouth once daily, then take 1 tablet by mouth once daily Prednisone 10 mg tablet Discontinued 10 mg PO DAILY 18 0 May 21, 2024 12:00am October 08, 2024 8:43am 3 tablets daily x3 days, then 2 tablets daily x3 days, then 1 tablet daily x3 days ramipril 10 mg oral capsule (3 sources) Angiotensin Converting Enzyme Inhibitor Start: 10-29-2010 take 1 tablet by mouth twice daily ALTACE 10 MG CAPS One tablet by mouth twice daily RAMIPRIL [id number] Lori M Isabel 12 hr ranolazine 500 mg extended release oral tablet (6 sources) Anti-anginal Start: 10-10-2014 End: 12-15-2014 take 1 tablet by mouth twice daily at mealtime RANEXA 500 MG MG45I-MRK One tablet by mouth twice daily with food RANOLAZINE [id number] Fara Bernal DO sulfamethoxazole 400 mg / trimethoprim 80 mg oral tablet (6 sources) Dihydrofolate Reductase Inhibitor Antibacterial, Sulfonamide Antimicrobial Start: 12-17-2014 End: 03-02-2015 take 1 tablet by mouth twice daily BACTRIM TABS Pt unsure of dose, One tablet by mouth twice daily SULFAMETHOXAZOLE-T RIMETHOPRIM TABS [id number] Fara Bernal DO traMADol hydrochloride 50 mg oral tablet (7 sources) Opioid Agonist Start: 03-18-2023 End: 04-06-2023 take 1 tablet by mouth every six hours Tramadol 50 mg tablet Discontinued 50 mg PO EVERY 6 HOURS 12 3 0 March 18, 2023 1:00am April 06, 2023 1:51am vitamin b 12 1 mg oral tablet (6 sources) Vitamin B12 Start: 10-07-2014 End: 10-23-2015 take 1 tablet by mouth once daily VITAMIN B-12 1000 MCG TABS One tablet by mouth daily CYANOCOBALAMIN [id number] Sheng Pritchard MD warfarin sodium 6 mg oral tablet (12 sources) Vitamin K Antagonist Start: 06-26-2013 COUMADIN 6 MG TABS Take as directed WARFARIN SODIUM [id number] Sheng Pritchard MD Start: 06-26-2013 End: 12-12-2013 COUMADIN 5 MG TABS Take as d irected - current dose is 5 mg daily WARFARIN SODIUM [id number] Sheng Pritchard MD Start: 06-19-2013 COUMADIN 4 MG TABS Take as directed WARFARIN SODIUM [id number] Justine Vegas RN Problems Active Problems Problem Classification Problem Date Documented Date Episodic/Chronic Acquired foot deformities (4 sources) Hallux valgus (acquired), right foot; Translations: [Hallux valgus of right foot] Onset: 10-24-19 24 10-05-2023 Chronic Acute bronchitis (12 sources) Acute bronchitis; Translations: [Acute bronchitis, unspecified] 11-16-2020 Episodic Acute cerebrovascular disease (12 sources) Cerebrovascular accident; Translations: [Cerebral infarction, unspecified] Onset: 12-15-19 19 05-11-2020 Chronic Comment on above: Old lacunar infarct; left thalamus extending to the left cerebral peduncle 12/14/2018 Acute myocardial infarction (15 sources) Myocardial infarction; Translations: [Non-ST elevation (NSTEMI) myocardial infarction] Onset: 06-20-19 14 06-19-2013 Chronic Asthma (3 sources) Asthma; Translations: [Unspecified asthma, uncomplicated] Onset: 04-10-19 15 04-20-2014 Chronic Cardiac dysrhythmias (19 sources) Irregular heart beat; Translations: [Cardiac arrhythmia, unspecified] 05-11-2020 Chronic Chronic ulcer of skin (8 sources) Non-pressure chronic 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; Translations: [Non-pressure chronic 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] Onset: 10-24-19 24 10-05-2023 Chronic Complication of device; implant or graft (3 sources) Arteriosclerosis of coronary artery bypass graft; Translations: [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 angina pectoris] Onset: 06-20-19 14 06-19-2013 Chronic Congestive heart failure; nonhypertensive (14 sources) Chronic diastolic heart failure; Translations: [Chronic diastolic (congestive) heart failure] Onset: 10-24-19 24 09-04-2019 Chronic Coronary atherosclerosis and other heart disease (20 sources) Atherosclerotic heart disease of [place] coronary artery without angina pectoris; Translations: [Old myocardial infarction] Onset: 04-08-19 14 10-22-2015 Chronic Diabetes mellitus with complications (20 sources) Type II diabetes mellitus uncontrolled; Translations: [Retinopathy due to type 2 diabetes mellitus] Onset: 04-10-19 15 04-10-2014 Chronic Diabetes mellitus without complication (18 sources) Diabetes mellitus; Translations: [Type 2 diabetes mellitus] Onset: 06-20-19 14 Resolved : 11-17-19 17 06-19-2013 Chronic Disorders of lipid metabolism (20 sources) Hyperlipidemia; Translations: [Hyperlipidemia, unspecified] Onset: 06-20-19 14 06-19-2013 Chronic Esophageal disorders (3 sources) Gastroesophageal reflux disease; Translations: [Gastro-esophageal reflux disease without esophagitis] Onset: 04-10-19 15 04-20-2014 Chronic Essential hypertension (20 sources) Hypertensive disorder; Translations: [Essential hypertension] Onset: 06-20-19 14 06-19-2013 Chronic Gout and other crystal arthropathies (3 sources) Pseudogout; Translations: [Other specified crystal arthropathies, unspecified site] 04-01-2013 Chronic Infective arthritis and osteomyelitis (except that caused by tuberculosis or sexually transmitted disease) (4 sources) Osteomyelitis; Translations: [Osteomyelitis, unspecified] Onset: 10-24-19 24 10-19-2023 Chronic Non-Hodgkin`s lymphoma (9 sources) Malignant lymphoma (clinical); Translations: [Non-Hodgkin's lymphoma (clinical)] Onset: 06-19-19 13 Resolved : 11-17-19 17 06-18-2012 Chronic Osteoarthritis (5 sources) Osteoarthritis; Translations: [Arthritis of knee] Onset: 04-10-19 15 04-20-2014 Chronic Other bone disease and musculoskeletal deformities (2 sources) History of amputation of right foot; Translations: [Acquired absence of right foot] 12-28-2023 Chronic Other circulatory disease (3 sources) Peripheral vascular disease; Translations: [Other specified peripheral vascular diseases] 12-06-2023 Chronic Other circulatory disease (1 source) Other specified peripheral vascular diseases; Translations: [Other specified peripheral vascular diseases] Onset: 12-18-19 Chronic Other circulatory disease (12 sources) Abnormal peripheral pulse; Translations: [Other specified symptoms and signs involving the circulatory and respiratory systems] 07-26-2021 Episodic Other circulatory disease (5 sources) Other specified symptoms and signs involving the circulatory and respiratory systems; Translations: [Other symptoms involving cardiovascular system] Episodic Other connective tissue disease (12 sources) Muscle spasm of cervical muscle of neck; Translations: [Other muscle spasm] 06-26-2018 Episodic Other connective tissue disease (3 sources) Tear of left rotator cuff; Translations: [Unspecified rotator cuff tear or rupture of left shoulder, not specified as traumatic] 06-20-2023 Episodic Other connective tissue disease (1 source) Unspecified rotator cuff tear or rupture of left shoulder, not specified as traumatic; Translations: [Rotator cuff (capsule) sprain] 06-20-2023 Episodic Other connective tissue disease (4 sources) Pain in toe; Translations: [Pain in left toe(s)] 12-06-2023 Episodic Other connective tissue disease (3 sources) Swelling of finger ; Translations: [Other specified soft tissue disorders] 05-21-2024 Episodic Other ear and sense organ disorders (2 sources) Impacted cerumen; Translations: [Impacted cerumen, bilateral] 10-30-2023 Episodic Other lower respiratory disease (18 sources) Dyspnea; Translations: [Dyspnea, unspecified] Onset: 10-30-19 11 Resolved : 11-17-19 17 10-29-2010 Episodic Other nervous system disorders (12 sources) Dysarthria; Translations: [Dysarthria and anarthria] 05-11-2020 Episodic Other non-traumatic joint disorders (7 sources) Pain in right shoulder; Translations: [Right shoulder pain] 03-26-2023 Episodic Other non-traumatic joint disorders (3 sources) Disorder of shoulder; Translations: [Other specified joint disorders, left shoulder] 06-05-2023 Episodic Other non-traumatic joint disorders (5 sources) Pain in left shoulder; Translations: [Left shoulder pain] 06-05-2023 Episodic Other non-traumatic joint disorders (2 sources) Other specified joint disorders, left shoulder; Translations: [Other specified disorders of joint, shoulder region] 06-05-2023 Episodic Other nutritional; endocrine; and metabolic disorders (3 sources) Hypomagnesemia; Translations: [Hypomagnesemia] Onset: 11-26-19 15 11-25-2014 Chronic Other nutritional; endocrine; and metabolic disorders (3 sources) Body mass index (BMI) 33.0-33.9, adult; Translations: [Body mass index (BMI) 33.0-33.9, adult] Onset: 06-27-19 14 06-26-2013 Chronic Other nutritional; endocrine; and metabolic disorders (12 sources) Obesity; Translations: [Obesity, unspecified] 05-11-2020 Chronic Other nutritional; endocrine; and metabolic disorders (11 sources) H/O: diabetes mellitus; Translations: [Personal history of other endocrine, nutritional and metabolic disease] 09-24-2021 Episodic Other upper respiratory infections (20 sources) Acute maxillary sinusitis; Translations: [Acute maxillary sinusitis, unspecified] 11-16-2020 Episodic Peripheral and visceral atherosclerosis (15 sources) Peripheral vascular disease, unspecified; Translations: [Peripheral arterial disease] Onset: 01-23-20 24 12-30-2021 Chronic Phlebitis; thrombophlebitis and thromboembolism (3 sources) 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; Translations: [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] Onset: 06-20-19 14 06-19-2013 Chronic Residual codes; unclassified (13 sources) Obstructive sleep apnea syndrome; Translations: [Obstructive sleep apnea (adult) (pediatric)] 09-04-2019 Chronic Residual codes; unclassified (5 sources) Obstructive sleep apnea (adult) (pediatric); Translations: [Obstructive sleep apnea (adult)(pediatric)] Chronic Residual codes; unclassified (10 sources) Finding of systemic arterial pressure; Translations: [Other general symptoms and signs] 01-20-2022 Episodic Comment on above: MARANDA 12/29/21 Interp retation SummaryRight GARCÍA 0.84, moderate arterial insufficiency. Doppler/PVR waveforms of the right leg revealdistal SFA/popliteal diseaseLeft GARCÍA 0.84, moderate arterial insufficiency. 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] Onset: 09-06-19 14 11-16-2016 Unclassified (1 source) R68.89 - Other general symptoms and signs,I73.9 - Peripheral vascular disease, unspecified Past or Other Problems Problem Classification Problem Date Documented Da te Episodic/Chronic Abdominal pain (6 sources) Epigastric pain; Translations: [Epigastric pain] Onset: 05-23-2012 Resolved: 11-16-2016 11-16-2016 Episodic Acquired foot deformities (4 sources) Tailor's bunion of right foot; Translations: [Bunionette of right foot] Onset: 10-24-2023 10-05-2023 Episodic Coronary atherosclerosis and other heart disease (7 sources) Presence of coronary angioplasty implant and graft; Translations: [Presence of aortocoronary bypass graft] Onset: 04-10-2013 10-22-2015 Episodic Non-Hodgkin`s lymphoma (12 sources) History of non-Hodgkins lymphoma; Translations: [Personal history of non-Hodgkin lymphomas] Onset: 02-14-2012 05-11-2020 Episodic Comment on above: 6 cycles of R-CHOP f inished 09/2012 Nonspecific chest pain (6 sources) Chest pain, unspecified; Translations: [Chest pain, unspecified] Onset: 10-29-2010 Resolved: 11-16-2016 10-29-2010 Episodic Other aftercare (2 sources) senior care (current) use of insulin; Translations: [senior care (current) use of insulin] Onset: 10-24-2023 Episodic Other connective tissue disease (3 sources) Lateral epicondylitis; Translations: [Lateral epicondylitis] Onset: 05-08-2014 05-08-2014 Episodic Other connective tissue disease (3 sources) Foot pain; Translations: [Pain in right foot] Onset: 12-17-2014 12-17-2014 Episodic Other connective tissue disease (1 source) Pain in right finger(s); Translations: [Pain in right finger(s)] Onset: 06-18-2024 Episodic Other connective tissue disease (1 source) Pain in right toe(s); Translations: [Pain in right toe(s)] Onset: 12-18-2023 Episodic Other connective tissue disease (1 source) Pain in left toe(s); Translations: [Pain in left toe(s)] Onset: 12-18-2023 Episodic Other ear and sense organ disorders (1 source) Impacted cerumen, bilateral; Translations: [Impacted cerumen, bilateral] Onset: 01-23-2024 Episodic Other gastrointestinal disorders (3 sources) Dysphagia; Translations: [Dysphagia, unspecified] Onset: 11-27-2014 11-27-2014 Episodic Other injuries and conditions due to external causes (1 source) Other injury of unspecified body region, initial encounter; Translations: [Other injury of unspecified body region, initial encounter] Onset: 01-19-2024 Episodic Other non-traumatic joint disorders (3 sources) Knee pain; Translations: [Pain in unspecified knee] 04-02-2013 Episodic Residual codes; unclassified (3 sources) FH: Hypertension; Translations: [Family history of ischemic heart disease and other diseases of the circulatory system] 09-06-2013 Episodic Residual codes; unclassified (2 sources) Other general symptoms and signs; Translations: [Other abnormal clinical findings] Onset: 04-19-2024 01-20-2022 Episodic Residual codes; unclassified (1 source) Pain, unspecified; Translations: [Pain, unspecified] Onset: 05-21-2024 Episodic Skin and subcutaneous tissue infections (20 sources) Cellulitis of unspecified part of limb; Translations: [Cellulitis and abscess of hand] Onset: 12-21-2023 09-24-2021 Episodic Sprains and strains (20 sources) Injury of left hand; Translations: [Strain of left hand and finger] Onset: 02-20-2024 09-24-2021 Episodic Thyroid disorders (3 sources) Cyst of thyroid; Translations: [Nontoxic single thyroid nodule] Onset: 09-04-2014 09-04-2014 Episodic Results Test Name Value Interpretation Reference Range Facility MR/BMS.BVDiogo 10-08-2024 MR/BMS.BVS Normal [facility] Lower Ext Art Exam w/o Exerc linda 06-07-2024 Lower Ext Art Exam w/o Exercis Normal [facility] MR/BMS.BVSon 05-23-2024 MR/BMS.BVS Normal [facility] Finger(s) Min 2 Viewson Finger(s) Min 2 Views Normal [facility] Urgent Care Visit Reporton 0 05-21-2024 Urgent Care Visit Report Normal [facility] Cardiology Visit Reporton Cardiology Visit Report Normal [facility] Acid Fast Bacillus Cultureon 01-29-2024 tAFBC Normal [facility] Comment on above: Performed By: #### M 100.4001, M300.3000, M300.2000, M100.2000, M600.2000, M600.2200, M100.3000 ####[facility] [address] [place], [address] tAFBC [facility] Comment on above: Performed By: #### M 300.3000, M300.2000 ####[facility] [address] [place], [address] Acid Fast Bacillus Smear/Flu oron 01-29-2024 tafb [facility] Comment on above: Performed By: #### M 100.4001, M300.3000, M300.2000, M100.2000, M600.2000, M600.2200, M100.3000 ####[facility] [address] [place], [address] tafb [facility] Comment on above: Performed By: #### M 300.3000, M300.2000 ####[facility] [address] [place], [address] Culture, Fungus 8482on 01-28 CUF [facility] Comment on above: Performed By: #### M 100.4001, M300.3000, M300.2000, M100.2000, M600.2000, M600.2200, M100.3000 ####[facility] [address] [place], [address] CUF [facility] Comment on above: Performed By: #### M 100.2000, M600.2200, M100.4001, M600.2000, M100.3000 ####[facility] [address] [place], [address] Fungus Stain 8136on 01-29-20 24 FUNST [facility] Comment on above: Performed By: #### M 100.4001, M300.3000, M300.2000, M100.2000, M600.2000, M600.2200, M100.3000 ####[facility] [address] [place], [address] [facility] Comment on above: Performed By: #### M 100.2000, M600.2200, M100.4001, M600.2000, M100.3000 ####[facility] [address] [place], [address] Knee 4 or More Viewson 01-18 Knee 4 or More Views Normal [facility] Urgent Care Visit Reporton 1 03-21-2023 Urgent Care Visit Report Normal [facility] Culture, Fungus 8482on 01-11 CUF Normal [facility] Comment on above: Performed By: #### M 600.1999, M600.2200 ####[facility] [address] [place], [address] Fungus Stain 8136on 01-12-20 24 [facility] Comment on above: Performed By: #### M 600.1999, M600.2200 ####[facility] [address] [place], [address] [facility], [facility] CUAN UNK UNK Collected in OR - 5th Right Metatarsal bone No anaerobic bacteria isolated. [facility] Comment on above: Performed By: #### M 100.4001, M300.3000, M300.2000, M100.2000, M600.2000, M600.2200, M100.3000 ####[facility] [address] [place], [address] CUAN UNK UNK Collected in OR - 5th Right Metatarsal tissue No anaerobic bacteria isolated. [facility] Comment on above: Performed By: #### M 100.2000, M600.2200, M100.4001, M600.2000, M100.3000 ####[facility] [address] [place], [address] Wound Cultureon 12-15-2023 WC Normal [facility] Comment on above: Performed By: #### M 100.2000, M600.2200, M100.4001, M600.2000, M100.3000 ####[facility] [address] [place], [address] Bedside Glucoseon 12-14-2023 FINGERSTICK GLU 156 mg/dL High 74-106 [facility] Comment on above: Result Comment: DUNCAN GEMENT OF PATIENT CARE PER NURSING PROTOCOL Performed By: #### L 501.080 ####[facility] [address] [place], [address] FINGERSTICK GLU 153 mg/dL High 74-106 [facility] Comment on above: Result Comment: DUNCAN GEMENT OF PATIENT CARE PER NURSING PROTOCOL Performed By: #### L 501.080 ####[facility] [address] [place], [address] Basic Metabolic Profile (BMP )on 12-13-2023 BUN/CRE 24.8 RATIO High 10-20 [facility] Comment on above: Performed By: #### L 100.0100, L500.2500 ####[facility] [address] [place], [address] CA,Total 9.0 mg/dL Normal 8.5-10.1 [facility] Comment on above: Performed By: #### L 100.0100, L500.2500 ####[facility] [address] [place], [address] Chloride [Moles/Vol] 110 mmol/L High 98-107 [facility] Comment on above: Performed By: #### L 100.0100, L500.2500 ####[facility] [address] [place], [address] CO2 [Moles/Vol] 24.0 mmol/L Normal 21.0-32.0 [facility] Comment on above: Performed By: #### L 100.0100, L500.2500 ####[facility] [address] [place], [address] Creatinine [Mass/Vol] 0.89 mg/dL Normal 0.55-1.02 [facility] Comment on above: Result Comment: The validity of the calculated GFR GFRAA in patients over70 years has not been determined. Clinical correlation isessential. Performed By: #### L 100.0100, L500.2500 ####[facility] [address] [place], [address] ECRCL 72.85 ml/min Normal [facility] Comment on above: Performed By: #### L 100.0100, L500.2500 ####[facility] [address] [place], [address] EST GFR - AA 82 mL/min Normal >60 [facility] Comment on above: Result Comment: Afri can Vietnamese GFR Calc Performed By: #### L 100.0100, L500.2500 ####[facility] [address] [place], [address] GAP 5 Normal 5-15 [facility] Comment on above: Performed By: #### L 100.0100, L500.2500 ####[facility] [address] [place], [address] GFR/1.73 sq M.predicted among non-blacks MDRD (S/P/Bld) [Vol rate/Area] 68 mL/min/{1.73_m2} Normal >60 [facility] Comment on above: Result Comment: Non- GFR Calc Performed By: #### L 100.0100, L500.2500 ####[facility] [address] [place], [address] Glucose [Mass/Vol] 111 mg/dL High 74-106 [facility] Comment on above: Result Comment: Fast ing Glucose result from 100 to 125 mg/dLsuggests IMPAIRED HOMEOSTASIS per A.D.A. criteria. Performed By: #### L 100.0100, L500.2500 ####[facility] [address] [place], [address] Potassium [Moles/Vol] 3.8 mmol/L Normal 3.5-5.1 [facility] Comment on above: Performed By: #### L 100.0100, L500.2500 ####[facility] [address] [place], [address] Sodium [Moles/Vol] 139 mmol/L Normal 136-145 [facility] Comment on above: Performed By: #### L 100.0100, L500.2500 ####[facility] [address] [place], [address] Urea nitrogen [Mass/Vol] 22 mg/dL High 7-18 [facility] Comment on above: Performed By: #### L 100.0100, L500.2500 ####[facility] [address] [place], [address] Bedside Glucoseon 12-13-2023 FINGERSTICK GLU 186 mg/dL High 74-106 [facility] Comment on above: Result Comment: DUNCAN GEMENT OF PATIENT CARE PER NURSING PROTOCOL Performed By: #### L 501.080 ####[facility] [address] [place], [address] FINGERSTICK GLU 183 mg/dL High 74-106 [facility] Comment on above: Result Comment: DUNCAN GEMENT OF PATIENT CARE PER NURSING PROTOCOL Performed By: #### L 501.080 ####[facility] [address] [place], [address] FINGERSTICK GLU 110 mg/dL High 74-106 [facility] Comment on above: Result Comment: DUNCAN GEMENT OF PATIENT CARE PER NURSING PROTOCOL Performed By: #### L 501.080 ####[facility] [address] [place], [address] CBC W/Diff, Automatedon 10-3 0-2024 Absolute Lymph 3.03 X10 3/uL Normal 0.83-4.51 [facility] Comment on above: Performed By: #### L 100.0100, L500.2500 ####[facility] [address] [place], [address] Absolute Neut 8.5 X10 3/uL High 2.0-7.7 [facility] Comment on above: Performed By: #### L 100.0100, L500.2500 ####[facility] [address] [place], [address] Basophils/100 WBC (Bld) 0.5 % Normal 0-1 [facility] Comment on above: Performed By: #### L 100.0100, L500.2500 ####[facility] [address] [place], [address] Eosinophils/100 WBC (Bld) 5.1 % High 0-5 [facility] Comment on above: Performed By: #### L 100.0100, L500.2500 ####[facility] [address] [place], [address] Erythrocyte distribution width (RBC) [Ratio] 15.3 % High 11.6-14.6 [facility] Comment on above: Performed By: #### L 100.0100, L500.2500 ####[facility] [address] [place], [address] Hematocrit (Bld) [Volume fraction] 32.0 % Low 37-47 [facility] Comment on above: Performed By: #### L 100.0100, L500.2500 ####[facility] [address] [place], [address] Hemoglobin (Bld) [Mass/Vol] 10.3 g/dL Low 12.0-15.0 [facility] Comment on above: Performed By: #### L 100.0100, L500.2500 ####[facility] [address] [place], [address] IG% 0.900 Normal 0.0-0.9 [facility] Comment on above: Result Comment: IG% - Immature Granulocytes (promyelocytes, myelocytes andmetamyelocytes) > 1% indicates that a LEFT SHIFT is Present. Performed By: #### L 100.0100, L500.2500 ####[facility] [address] [place], [address] Lymphocytes/100 WBC (Bld) 23.2 % Normal 19-41 [facility] Comment on above: Performed By: #### L 100.0100, L500.2500 ####[facility] [address] [place], [address] MCH (RBC) [Entitic mass] 28.1 pg Normal 27.0-32.0 [facility] Comment on above: Performed By: #### L 100.0100, L500.2500 ####[facility] [address] [place], [address] MCHC (RBC) [Mass/Vol] 32.2 g/dL Normal 32-36 [facility] Comment on above: Performed By: #### L 100.0100, L500.2500 ####[facility] [address] [place], [address] MCV (RBC) [Entitic vol] 87.4 fL Normal 81-99 [facility] Comment on above: Performed By: #### L 100.0100, L500.2500 ####[facility] [address] [place], [address] Monocytes/100 WBC (Bld) 5.4 % Normal 0-10 [facility] Comment on above: Performed By: #### L 100.0100, L500.2500 ####[facility] [address] [place], [address] Neutrophils/100 WBC (Bld) 64.9 % Normal 47-70 [facility] Comment on above: Performed By: #### L 100.0100, L500.2500 ####[facility] [address] [place], [address] Nucleated RBC (Bld) [#/Vol] 0 10*3/uL Normal 0-5 [facility] Comment on above: Performed By: #### L 100.0100, L500.2500 ####[facility] [address] [place], [address] Platelet mean volume (Bld) [Entitic vol] 10.7 fL Normal 6.2-12.0 [facility] Comment on above: Performed By: #### L 100.0100, L500.2500 ####[facility] [address] [place], [address] Platelets (Bld) [#/Vol] 244 10*3/uL Normal 150-450 [facility] Comment on above: Performed By: #### L 100.0100, L500.2500 ####[facility] [address] [place], [address] RBC (Bld) [#/Vol] 3.66 10*6/uL Low 4.2-5.4 [facility] Comment on above: Performed By: #### L 100.0100, L500.2500 ####[facility] [address] [place], [address] RDW SD 49.0 fl High 35.1-43.9 [facility] Comment on above: Performed By: #### L 100.0100, L500.2500 ####[facility] [address] [place], [address] WBC (Bld) [#/Vol] 13.1 10*3/uL High 4.4-11.0 [facility] Comment on above: Performed By: #### L 100.0100, L500.2500 ####[facility] [address] [place], [address] Culture, Blood (WB)on 2023 CUB Blood cultures x2, f rom two different sites No growth in 5 days. Normal [facility] Comment on above: Performed By: #### M 200.1000 ####[facility] [address] [place], [address] Vancomycin, Trough Levelon 1 VANCO, TROUGH 20.1 ug/mL High 5.0-15.0 [facility] Comment on above: Order Comment: Comme nts: Trough to be drawn 30 mins prior to scheduled [id number] Result Comment: VANC OMYCIN STANDARED DRUG THERAPY TROUGH LEVEL: 5.0 - 15.0 mg/LVANCOMYCIN HIGH INTENSITY THERAPY TROUGH LEVEL: 15.0 - 20.0 mg/LHigh Intensity therapy recommended for serious lifethreatening infections include:- Llsuiiweff-Nuaihnhhtxof-Bzimnrdoq (Ventilator/Healtcare Associated)-SepsisPLEASE CONTACT PHARMACY SERVICES (#1782) FOR INTERPRETATIONOF RESULTS. Performed By: #### L 501.8820 ####[facility] [address] [place], [address] Wound Cultureon 12-13-2023 WC Normal [facility] Comment on above: Performed By: #### M 100.4001, M300.3000, M300.2000, M100.2000, M600.2000, M600.2200, M100.3000 ####[facility] [address] [place], [address] Basic Metabolic Profile (BMP )on 12-12-2023 BUN/CRE 25.5 RATIO High 12-02 [facility] Comment on above: Performed By: #### L 500.2500, L100.0100 ####[facility] [address] [place], [address] CA,Total 8.8 mg/dL Normal 8.5-10.1 [facility] Comment on above: Performed By: #### L 500.2500, L100.0100 ####[facility] [address] [place], [address] Chloride [Moles/Vol] 111 mmol/L High 98-107 [facility] Comment on above: Performed By: #### L 500.2500, L100.0100 ####[facility] [address] [place], [address] CO2 [Moles/Vol] 23.0 mmol/L Normal 21.0-32.0 [facility] Comment on above: Performed By: #### L 500.2500, L100.0100 ####[facility] [address] [place], [address] Creatinine [Mass/Vol] 0.78 mg/dL Normal 0.55-1.02 [facility] Comment on above: Result Comment: The validity of the calculated GFR GFRAA in patients over70 years has not been determined. Clinical correlation isessential. Performed By: #### L 500.2500, L100.0100 ####[facility] [address] [place], [address] ECRCL 83.12 ml/min Normal [facility] Comment on above: Performed By: #### L 500.2500, L100.0100 ####[facility] [address] [place], [address] EST GFR - AA 95 mL/min Normal >60 [facility] Comment on above: Result Comment: Afri can Vietnamese GFR Calc Performed By: #### L 500.2500, L100.0100 ####[facility] [address] [place], [address] GAP 5 Normal 5-15 [facility] Comment on above: Performed By: #### L 500.2500, L100.0100 ####[facility] [address] [place], [address] GFR/1.73 sq M.predicted among non-blacks MDRD (S/P/Bld) [Vol rate/Area] 79 mL/min/{1.73_m2} Normal >60 [facility] Comment on above: Result Comment: Non- GFR Calc Performed By: #### L 500.2500, L100.0100 ####[facility] [address] [place], [address] Glucose [Mass/Vol] 194 mg/dL High 74-106 [facility] Comment on above: Result Comment: Fast ing Glucose result greater than or equal to 126 mg/dLsuggests DIABETES MELLITUS per A.D.A. criteria. Performed By: #### L 500.2500, L100.0100 ####[facility] [address] [place], [address] Potassium [Moles/Vol] 4.4 mmol/L Normal 3.5-5.1 [facility] Comment on above: Performed By: #### L 500.2500, L100.0100 ####[facility] [address] [place], [address] Sodium [Moles/Vol] 140 mmol/L Normal 136-145 [facility] Comment on above: Performed By: #### L 500.2500, L100.0100 ####[facility] [address] [place], [address] Urea nitrogen [Mass/Vol] 20 mg/dL High 7-18 [facility] Comment on above: Performed By: #### L 500.2500, L100.0100 ####[facility] [address] [place], [address] Bedside Glucoseon 12-12-2023 FINGERSTICK GLU 174 mg/dL High 74-106 [facility] Comment on above: Result Comment: DUNCAN GEMENT OF PATIENT CARE PER NURSING PROTOCOL Performed By: #### L 501.080 ####[facility] [address] [place], [address] FINGERSTICK GLU 261 mg/dL High 74-106 [facility] Comment on above: Result Comment: DUNCAN GEMENT OF PATIENT CARE PER NURSING PROTOCOL Performed By: #### L 501.080 ####[facility] [address] [place], [address] FINGERSTICK GLU 202 mg/dL High 74-106 [facility] Comment on above: Result Comment: DUNCAN GEMENT OF PATIENT CARE PER NURSING PROTOCOL Performed By: #### L 501.080 ####[facility] [address] [place], [address] FINGERSTICK GLU 181 mg/dL High 74-106 [facility] Comment on above: Result Comment: DUNCAN GEMENT OF PATIENT CARE PER NURSING PROTOCOL Performed By: #### L 501.080 ####[facility] [address] [place], [address] CBC W/Diff, Automatedon 10-2 -2023 Absolute Lymph 1.94 X10 3/uL Normal 0.83-4.51 [facility] Comment on above: Performed By: #### L 500.2500, L100.0100 ####[facility] [address] [place], [address] Absolute Neut 7.1 X10 3/uL Normal 2.0-7.7 [facility] Comment on above: Performed By: #### L 500.2500, L100.0100 ####[facility] [address] [place], [address] Basophils/100 WBC (Bld) 0.3 % Normal 0-1 [facility] Comment on above: Performed By: #### L 500.2500, L100.0100 ####[facility] [address] [place], [address] Eosinophils/100 WBC (Bld) 0.5 % Normal 0-5 [facility] Comment on above: Performed By: #### L 500.2500, L100.0100 ####[facility] [address] [place], [address] Erythrocyte distribution width (RBC) [Ratio] 15.0 % High 11.6-14.6 [facility] Comment on above: Performed By: #### L 500.2500, L100.0100 ####[facility] [address] [place], [address] Hematocrit (Bld) [Volume fraction] 33.9 % Low 37-47 [facility] Comment on above: Performed By: #### L 500.2500, L100.0100 ####[facility] [address] [place], [address] Hemoglobin (Bld) [Mass/Vol] 10.6 g/dL Low 12.0-15.0 [facility] Comment on above: Performed By: #### L 500.2500, L100.0100 ####[facility] [address] [place], [address] IG% 0.700 Normal 0.0-0.9 [facility] Comment on above: Result Comment: IG% - Immature Granulocytes (promyelocytes, myelocytes andmetamyelocytes) > 1% indicates that a LEFT SHIFT is Present. Performed By: #### L 500.2500, L100.0100 ####[facility] [address] [place], [address] Lymphocytes/100 WBC (Bld) 19.9 % Normal 19-41 [facility] Comment on above: Performed By: #### L 500.2500, L100.0100 ####[facility] [address] [place], [address] MCH (RBC) [Entitic mass] 27.7 pg Normal 27.0-32.0 [facility] Comment on above: Performed By: #### L 500.2500, L100.0100 ####[facility] [address] [place], [address] MCHC (RBC) [Mass/Vol] 31.3 g/dL Low 32-36 [facility] Comment on above: Performed By: #### L 500.2500, L100.0100 ####[facility] [address] [place], [address] MCV (RBC) [Entitic vol] 88.5 fL Normal 81-99 [facility] Comment on above: Performed By: #### L 500.2500, L100.0100 ####[facility] [address] [place], [address] Monocytes/100 WBC (Bld) 5.2 % Normal 0-10 [facility] Comment on above: Performed By: #### L 500.2500, L100.0100 ####[facility] [address] [place], [address] Neutrophils/100 WBC (Bld) 73.4 % High 47-70 [facility] Comment on above: Performed By: #### L 500.2500, L100.0100 ####[facility] [address] [place], [address] Nucleated RBC (Bld) [#/Vol] 0 10*3/uL Normal 0-5 [facility] Comment on above: Performed By: #### L 500.2500, L100.0100 ####[facility] [address] [place], [address] Platelet mean volume (Bld) [Entitic vol] 10.6 fL Normal 6.2-12.0 [facility] Comment on above: Performed By: #### L 500.2500, L100.0100 ####[facility] [address] [place], [address] Platelets (Bld) [#/Vol] 222 10*3/uL Normal 150-450 [facility] Comment on above: Performed By: #### L 500.2500, L100.0100 ####[facility] [address] [place], [address] RBC (Bld) [#/Vol] 3.83 10*6/uL Low 4.2-5.4 [facility] Comment on above: Performed By: #### L 500.2500, L100.0100 ####[facility] [address] [place], [address] RDW SD 48.3 fl High 35.1-43.9 [facility] Comment on above: Performed By: #### L 500.2500, L100.0100 ####[facility] [address] [place], [address] WBC (Bld) [#/Vol] 9.7 10*3/uL Normal 4.4-11.0 [facility] Comment on above: Performed By: #### L 500.2500, L100.0100 ####[facility] [address] [place], [address] CTA Abd w/Runoff W/WO Contra ston 12-12-2023 CTA Abd w/Runoff W/WO Contrast Normal [facility] Consultation - Surgicalon Consultation - Surgical Normal [facility] Gram Stainon 12-12-2023 GS UNK UNK Collected in OR - 5th Right Metatarsal bone Gram Stain Rare Gram positive cocci No cells seen Normal [facility] Comment on above: Performed By: #### M 100.4001, M300.3000, M300.2000, M100.2000, M600.2000, M600.2200, M100.3000 ####[facility] [address] [place], [address] GS UNK UNK Collected in OR - 5th Right Metatarsal tissue Gram Stain Very Rare Gram positive cocci No cells seen Normal [facility] Comment on above: Performed By: #### M 100.2000, M600.2200, M100.4001, M600.2000, M100.3000 ####[facility] [address] [place], [address] Basic Metabolic Profile (BMP )on 12-11-2023 BUN/CRE 26.9 RATIO High 10-20 [facility] Comment on above: Performed By: #### L 500.2500, L100.0100 ####[facility] [address] [place], [address] CA,Total 8.8 mg/dL Normal 8.5-10.1 [facility] Comment on above: Performed By: #### L 500.2500, L100.0100 ####[facility] [address] [place], [address] Chloride [Moles/Vol] 114 mmol/L High 98-107 [facility] Comment on above: Performed By: #### L 500.2500, L100.0100 ####[facility] [address] [place], [address] CO2 [Moles/Vol] 23.0 mmol/L Normal 21.0-32.0 [facility] Comment on above: Performed By: #### L 500.2500, L100.0100 ####[facility] [address] [place], [address] Creatinine [Mass/Vol] 0.71 mg/dL Normal 0.55-1.02 [facility] Comment on above: Result Comment: The validity of the calculated GFR GFRAA in patients over70 years has not been determined. Clinical correlation isessential. Performed By: #### L 500.2500, L100.0100 ####[facility] [address] [place], [address] ECRCL 90.10 ml/min Normal [facility] Comment on above: Performed By: #### L 500.2500, L100.0100 ####[facility] [address] [place], [address] EST GFR - AA 107 mL/min Normal >60 [facility] Comment on above: Result Comment: Afri can Vietnamese GFR Calc Performed By: #### L 500.2500, L100.0100 ####[facility] [address] [place], [address] GAP 6 Normal 5-15 [facility] Comment on above: Performed By: #### L 500.2500, L100.0100 ####[facility] [address] [place], [address] GFR/1.73 sq M.predicted among non-blacks MDRD (S/P/Bld) [Vol rate/Area] 88 mL/min/{1.73_m2} Normal >60 [facility] Comment on above: Result Comment: Non- GFR Calc Performed By: #### L 500.2500, L100.0100 ####[facility] [address] [place], [address] Glucose [Mass/Vol] 119 mg/dL High 74-106 [facility] Comment on above: Result Comment: Fast ing Glucose result from 100 to 125 mg/dLsuggests IMPAIRED HOMEOSTASIS per A.D.A. criteria. Performed By: #### L 500.2500, L100.0100 ####[facility] [address] [place], [address] Potassium [Moles/Vol] 3.8 mmol/L Normal 3.5-5.1 [facility] Comment on above: Performed By: #### L 500.2500, L100.0100 ####[facility] [address] [place], [address] Sodium [Moles/Vol] 143 mmol/L Normal 136-145 [facility] Comment on above: Performed By: #### L 500.2500, L100.0100 ####[facility] [address] [place], [address] Urea nitrogen [Mass/Vol] 19 mg/dL High 7-18 [facility] Comment on above: Performed By: #### L 500.2500, L100.0100 ####[facility] [address] [place], [address] Bedside Glucoseon 12-11-2023 FINGERSTICK GLU 241 mg/dL High 74-106 [facility] Comment on above: Result Comment: DUNCAN GEMENT OF PATIENT CARE PER NURSING PROTOCOL Performed By: #### L 501.080 ####[facility] [address] [place], [address] FINGERSTICK GLU 149 mg/dL High 74-106 [facility] Comment on above: Result Comment: DUNCAN GEMENT OF PATIENT CARE PER NURSING PROTOCOL Performed By: #### L 501.080 ####[facility] [address] [place], [address] FINGERSTICK GLU 115 mg/dL High 74-106 [facility] Comment on above: Result Comment: DUNCAN GEMENT OF PATIENT CARE PER NURSING PROTOCOL Performed By: #### L 501.080 ####[facility] [address] [place], [address] FINGERSTICK GLU 111 mg/dL High 74-106 [facility] Comment on above: Result Comment: DUNCAN GEMENT OF PATIENT CARE PER NURSING PROTOCOL Performed By: #### L 501.080 ####[facility] [address] [place], [address] CBC W/Diff, Automatedon 10-2 Absolute Lymph 2.31 X10 3/uL Normal 0.83-4.51 [facility] Comment on above: Performed By: #### L 500.2500, L100.0100 ####[facility] [address] [place], [address] Absolute Neut 4.5 X10 3/uL Normal 2.0-7.7 [facility] Comment on above: Performed By: #### L 500.2500, L100.0100 ####[facility] [address] [place], [address] Basophils/100 WBC (Bld) 0.5 % Normal 0-1 [facility] Comment on above: Performed By: #### L 500.2500, L100.0100 ####[facility] [address] [place], [address] Eosinophils/100 WBC (Bld) 8.1 % High 0-5 [facility] Comment on above: Performed By: #### L 500.2500, L100.0100 ####[facility] [address] [place], [address] Erythrocyte distribution width (RBC) [Ratio] 15.0 % High 11.6-14.6 [facility] Comment on above: Performed By: #### L 500.2500, L100.0100 ####[facility] [address] [place], [address] Hematocrit (Bld) [Volume fraction] 32.5 % Low 37-47 [facility] Comment on above: Performed By: #### L 500.2500, L100.0100 ####[facility] [address] [place], [address] Hemoglobin (Bld) [Mass/Vol] 10.3 g/dL Low 12.0-15.0 [facility] Comment on above: Performed By: #### L 500.2500, L100.0100 ####[facility] [address] [place], [address] IG% 1.000 High 0.0-0.9 [facility] Comment on above: Result Comment: IG% - Immature Granulocytes (promyelocytes, myelocytes andmetamyelocytes) > 1% indicates that a LEFT SHIFT is Present. Performed By: #### L 500.2500, L100.0100 ####[facility] [address] [place], [address] Lymphocytes/100 WBC (Bld) 27.6 % Normal 19-41 [facility] Comment on above: Performed By: #### L 500.2500, L100.0100 ####[facility] [address] [place], [address] MCH (RBC) [Entitic mass] 27.7 pg Normal 27.0-32.0 [facility] Comment on above: Performed By: #### L 500.2500, L100.0100 ####[facility] [address] [place], [address] MCHC (RBC) [Mass/Vol] 31.7 g/dL Low 32-36 [facility] Comment on above: Performed By: #### L 500.2500, L100.0100 ####[facility] [address] [place], [address] MCV (RBC) [Entitic vol] 87.4 fL Normal 81-99 [facility] Comment on above: Performed By: #### L 500.2500, L100.0100 ####[facility] [address] [place], [address] Monocytes/100 WBC (Bld) 9.0 % Normal 0-10 [facility] Comment on above: Performed By: #### L 500.2500, L100.0100 ####[facility] [address] [place], [address] Neutrophils/100 WBC (Bld) 53.8 % Normal 47-70 [facility] Comment on above: Performed By: #### L 500.2500, L100.0100 ####[facility] [address] [place], [address] Nucleated RBC (Bld) [#/Vol] 0 10*3/uL Normal 0-5 [facility] Comment on above: Performed By: #### L 500.2500, L100.0100 ####[facility] [address] [place], [address] Platelet mean volume (Bld) [Entitic vol] 10.6 fL Normal 6.2-12.0 [facility] Comment on above: Performed By: #### L 500.2500, L100.0100 ####[facility] [address] [place], [address] Platelets (Bld) [#/Vol] 213 10*3/uL Normal 150-450 [facility] Comment on above: Performed By: #### L 500.2500, L100.0100 ####[facility] [address] [place], [address] RBC (Bld) [#/Vol] 3.72 10*6/uL Low 4.2-5.4 [facility] Comment on above: Performed By: #### L 500.2500, L100.0100 ####[facility] [address] [place], [address] RDW SD 48.2 fl High 35.1-43.9 [facility] Comment on above: Performed By: #### L 500.2500, L100.0100 ####[facility] [address] [place], [address] WBC (Bld) [#/Vol] 8.4 10*3/uL Normal 4.4-11.0 [facility] Comment on above: Performed By: #### L 500.2500, L100.0100 ####[facility] [address] [place], [address] Consultation - Infectious Dx on 12-11-2023 Consultation - Infectious Dx Normal [facility] Decalcification bone/plaqueo n 12-11-2023 Decalcification bone/plaque Normal [facility] Comment on above: Performed By: #### P DEC ####[facility] [address] [place], [place], [address] Foot 2 Viewson 12-11-2023 Foot 2 Views Normal [facility] Foot min 3 Viewson 4 Foot min 3 Views Normal [facility] MR/POSTOP.ANEon 12-11-2023 MR/POSTOP.ANE Normal [facility] MR/ZUIMPALT9qd 12-11-2023 MR/POSTOPAN2 Normal [facility] Operative Reporton 4 Operative Report Normal [facility] Vancomycin, Random Levelon 1 VANCO, RANDOM 16.6 ug/mL High 0.0-15.0 [facility] Comment on above: Result Comment: VANC OMYCIN STANDARD DRUG THERAPY: CRITICAL VALUE IS > 15.0 mg/LVANCOMYCIN HIGH INTENSITY THERAPY: CRITICAL VALUE IS > 20.0 mg/LPLEASE CONTACT PHARMACY SERVICES (#5907) FOR INTERPRETATIONOF RESULTS. THIS RESULT DOES NOT REPRESENT A PEAK OR TROUGHLEVEL FOR THIS DRUG. Performed By: #### L 501.8850 ####[facility] [address] [place], [place], [address] Vancomycin, Trough Levelon 1 VANCO, TROUGH 23.6 ug/mL High 5.0-15.0 [facility] Comment on above: Order Comment: 0700 Result Comment: VANC OMYCIN STANDARED DRUG THERAPY TROUGH LEVEL: 5.0 - 15.0 mg/LVANCOMYCIN HIGH INTENSITY THERAPY TROUGH LEVEL: 15.0 - 20.0 mg/LHigh Intensity therapy recommended for serious lifethreatening infections include:- Gpsuyfgavn-Yqcxrgudzarq-Rdqdeufcj (Ventilator/Healtcare Associated)-SepsisPLEASE CONTACT PHARMACY SERVICES (#6490) FOR INTERPRETATIONOF RESULTS. Performed By: #### L 501.8820 ####[facility] [address] [place], [address] Bedside Glucoseon 12-10-2023 FINGERSTICK GLU 119 mg/dL High 74-106 [facility] Comment on above: Result Comment: DUNCAN GEMENT OF PATIENT CARE PER NURSING PROTOCOL Performed By: #### L 501.080 ####[facility] [address] [place], [address] FINGERSTICK GLU 141 mg/dL High 74-106 [facility] Comment on above: Result Comment: DUNCAN GEMENT OF PATIENT CARE PER NURSING PROTOCOL Performed By: #### L 501.080 ####[facility] [address] [place], [address] FINGERSTICK GLU 165 mg/dL High 74-106 [facility] Comment on above: Result Comment: DUNCAN GEMENT OF PATIENT CARE PER NURSING PROTOCOL Performed By: #### L 501.080 ####[facility] [address] [place], [address] FINGERSTICK GLU 138 mg/dL High 74-106 [facility] Comment on above: Result Comment: DUNCAN GEMENT OF PATIENT CARE PER NURSING PROTOCOL Performed By: #### L 501.080 ####[facility] [address] [place], [address] CBC-Complete Blood Cnt No Di ffon 12-10-2023 Erythrocyte distribution width (RBC) [Ratio] 15.0 % High 11.6-14.6 [facility] Comment on above: Performed By: #### L 501.5200, L100.0500, L501.2300, L500.4050 ####[facility] [address] [place], [address] Hematocrit (Bld) [Volume fraction] 32.9 % Low 37-47 [facility] Comment on above: Performed By: #### L 501.5200, L100.0500, L501.2300, L500.4050 ####[facility] [address] [place], [address] Hemoglobin (Bld) [Mass/Vol] 10.5 g/dL Low 12.0-15.0 [facility] Comment on above: Performed By: #### L 501.5200, L100.0500, L501.2300, L500.4050 ####[facility] [address] [place], [address] MCH (RBC) [Entitic mass] 28.1 pg Normal 27.0-32.0 [facility] Comment on above: Performed By: #### L 501.5200, L100.0500, L501.2300, L500.4050 ####[facility] [address] [place], [address] MCHC (RBC) [Mass/Vol] 31.9 g/dL Low 32-36 [facility] Comment on above: Performed By: #### L 501.5200, L100.0500, L501.2300, L500.4050 ####[facility] [address] [place], [address] MCV (RBC) [Entitic vol] 88.0 fL Normal 81-99 [facility] Comment on above: Performed By: #### L 501.5200, L100.0500, L501.2300, L500.4050 ####[facility] [address] [place], [address] Platelet mean volume (Bld) [Entitic vol] 10.9 fL Normal 6.2-12.0 [facility] Comment on above: Performed By: #### L 501.5200, L100.0500, L501.2300, L500.4050 ####[facility] [address] [place], [address] Platelets (Bld) [#/Vol] 205 10*3/uL Normal 150-450 [facility] Comment on above: Performed By: #### L 501.5200, L100.0500, L501.2300, L500.4050 ####[facility] [address] [place], [address] RBC (Bld) [#/Vol] 3.74 10*6/uL Low 4.2-5.4 [facility] Comment on above: Performed By: #### L 501.5200, L100.0500, L501.2300, L500.4050 ####[facility] [address] [place], [address] RDW SD 48.2 fl High 35.1-43.9 [facility] Comment on above: Performed By: #### L 501.5200, L100.0500, L501.2300, L500.4050 ####[facility] [address] [place], [address] WBC (Bld) [#/Vol] 8.1 10*3/uL Normal 4.4-11.0 [facility] Comment on above: Performed By: #### L 501.5200, L100.0500, L501.2300, L500.4050 ####[facility] [address] [place], [address] Comprehensive Metabolic [facility] 12-10-2023 Albumin [Mass/Vol] 2.3 g/dL Low 3.2-5.0 [facility] Comment on above: Performed By: #### L 501.5200, L100.0500, L501.2300, L500.4050 ####[facility] [address] [place], [address] Albumin/Globulin [Mass ratio] 0.6 {ratio} Low 0.9-2.4 [facility] Comment on above: Performed By: #### L 501.5200, L100.0500, L501.2300, L500.4050 ####[facility] [address] [place], [address] ALK P 67 U/L Normal 45-117 [facility] Comment on above: Performed By: #### L 501.5200, L100.0500, L501.2300, L500.4050 ####[facility] [address] [place], [address] ALT [Catalytic activity/Vol] 13 U/L Normal 13-56 [facility] Comment on above: Performed By: #### L 501.5200, L100.0500, L501.2300, L500.4050 ####[facility] [address] [place], [address] AST [Catalytic activity/Vol] 14 U/L Low 15-37 [facility] Comment on above: Performed By: #### L 501.5200, L100.0500, L501.2300, L500.4050 ####[facility] [address] [place], [address] Bilirubin [Mass/Vol] 0.60 mg/dL Normal 0.20-1.00 [facility] Comment on above: Result Comment: For patients on eltrombopag therapy, use of Dimension [place] TBIL is not recommended. Performed By: #### L 501.5200, L100.0500, L501.2300, L500.4050 ####[facility] [address] [place], [address] BUN/CRE 30.0 RATIO High 10-20 [facility] Comment on above: Performed By: #### L 501.5200, L100.0500, L501.2300, L500.4050 ####[facility] [address] [place], [address] CA,Total 9.0 mg/dL Normal 8.5-10.1 [facility] Comment on above: Performed By: #### L 501.5200, L100.0500, L501.2300, L500.4050 ####[facility] [address] [place], [address] Chloride [Moles/Vol] 113 mmol/L High 98-107 [facility] Comment on above: Performed By: #### L 501.5200, L100.0500, L501.2300, L500.4050 ####[facility] [address] [place], [address] CO2 [Moles/Vol] 24.0 mmol/L Normal 21.0-32.0 [facility] Comment on above: Performed By: #### L 501.5200, L100.0500, L501.2300, L500.4050 ####[facility] [address] [place], [address] Creatinine [Mass/Vol] 0.80 mg/dL Normal 0.55-1.02 [facility] Comment on above: Result Comment: The validity of the calculated GFR GFRAA in patients over70 years has not been determined. Clinical correlation isessential. Performed By: #### L 501.5200, L100.0500, L501.2300, L500.4050 ####[facility] [address] [place], [address] ECRCL 77.90 ml/min Normal [facility] Comment on above: Performed By: #### L 501.5200, L100.0500, L501.2300, L500.4050 ####[facility] [address] [place], [address] EST GFR - AA 93 mL/min Normal >60 [facility] Comment on above: Result Comment: Afri can Vietnamese GFR Calc Performed By: #### L 501.5200, L100.0500, L501.2300, L500.4050 ####[facility] [address] [place], [address] GAP 4 Low 5-15 [facility] Comment on above: Performed By: #### L 501.5200, L100.0500, L501.2300, L500.4050 ####[facility] [address] [place], [address] GFR/1.73 sq M.predicted among non-blacks MDRD (S/P/Bld) [Vol rate/Area] 77 mL/min/{1.73_m2} Normal >60 [facility] Comment on above: Result Comment: Non- GFR Calc Performed By: #### L 501.5200, L100.0500, L501.2300, L500.4050 ####[facility] [address] [place], [address] Globulin (S) [Mass/Vol] 4.1 g/dL Normal 2.2-4.2 [facility] Comment on above: Performed By: #### L 501.5200, L100.0500, L501.2300, L500.4050 ####[facility] [address] [place], [address] Glucose [Mass/Vol] 159 mg/dL High 74-106 [facility] Comment on above: Result Comment: Fast ing Glucose result greater than or equal to 126 mg/dLsuggests DIABETES MELLITUS per A.D.A. criteria. Performed By: #### L 501.5200, L100.0500, L501.2300, L500.4050 ####[facility] [address] [place], [address] Potassium [Moles/Vol] 3.8 mmol/L Normal 3.5-5.1 [facility] Comment on above: Performed By: #### L 501.5200, L100.0500, L501.2300, L500.4050 ####[facility] [address] [place], [address] Sodium [Moles/Vol] 141 mmol/L Normal 136-145 [facility] Comment on above: Performed By: #### L 501.5200, L100.0500, L501.2300, L500.4050 ####[facility] [address] [place], [address] T PROT 6.4 g/dL Normal 6.4-8.2 [facility] Comment on above: Performed By: #### L 501.5200, L100.0500, L501.2300, L500.4050 ####[facility] [address] [place], [address] Urea nitrogen [Mass/Vol] 24 mg/dL High 08-30 [facility] Comment on above: Performed By: #### L 501.5200, L100.0500, L501.2300, L500.4050 ####[facility] [address] [place], [address] Magnesiumon 12-10-2023 Magnesium [Mass/Vol] 1.8 mg/dL Normal 1.6-2.6 [facility] Comment on above: Performed By: #### L 501.5200, L100.0500, L501.2300, L500.4050 ####[facility] [address] [place], [address] Phosphoruson 12-10-2023 Phosphate [Mass/Vol] 2.9 mg/dL Normal 2.5-4.9 [facility] Comment on above: Performed By: #### L 501.5200, L100.0500, L501.2300, L500.4050 ####[facility] [address] [place], [address] Basic Metabolic Profile (BMP )on 12-09-2023 BUN/CRE 27.2 RATIO High 12-02 [facility] Comment on above: Performed By: #### L 500.2500, L100.0100 ####[facility] [address] [place], [address] CA,Total 9.0 mg/dL Normal 8.5-10.1 [facility] Comment on above: Performed By: #### L 500.2500, L100.0100 ####[facility] [address] [place], [address] Chloride [Moles/Vol] 110 mmol/L High 98-107 [facility] Comment on above: Performed By: #### L 500.2500, L100.0100 ####[facility] [address] [place], [address] CO2 [Moles/Vol] 25.0 mmol/L Normal 21.0-32.0 [facility] Comment on above: Performed By: #### L 500.2500, L100.0100 ####[facility] [address] [place], [address] Creatinine [Mass/Vol] 0.92 mg/dL Normal 0.55-1.02 [facility] Comment on above: Result Comment: The validity of the calculated GFR GFRAA in patients over70 years has not been determined. Clinical correlation isessential. Performed By: #### L 500.2500, L100.0100 ####[facility] [address] [place], [address] ECRCL 67.74 ml/min Normal [facility] Comment on above: Performed By: #### L 500.2500, L100.0100 ####[facility] [address] [place], [address] EST GFR - AA 79 mL/min Normal >60 [facility] Comment on above: Result Comment: Afri can Vietnamese GFR Calc Performed By: #### L 500.2500, L100.0100 ####[facility] [address] [place], [address] GAP 4 Low 5-15 [facility] Comment on above: Performed By: #### L 500.2500, L100.0100 ####[facility] [address] [place], [address] GFR/1.73 sq M.predicted among non-blacks MDRD (S/P/Bld) [Vol rate/Area] 65 mL/min/{1.73_m2} Normal >60 [facility] Comment on above: Result Comment: Non- GFR Calc Performed By: #### L 500.2500, L100.0100 ####[facility] [address] [place], [address] Glucose [Mass/Vol] 164 mg/dL High 74-106 [facility] Comment on above: Result Comment: Fast ing Glucose result greater than or equal to 126 mg/dLsuggests DIABETES MELLITUS per A.D.A. criteria. Performed By: #### L 500.2500, L100.0100 ####[facility] [address] [place], [address] Potassium [Moles/Vol] 3.6 mmol/L Normal 3.5-5.1 [facility] Comment on above: Performed By: #### L 500.2500, L100.0100 ####[facility] [address] [place], [address] Sodium [Moles/Vol] 139 mmol/L Normal 136-145 [facility] Comment on above: Performed By: #### L 500.2500, L100.0100 ####[facility] [address] [place], [address] Urea nitrogen [Mass/Vol] 25 mg/dL High 7-18 [facility] Comment on above: Performed By: #### L 500.2500, L100.0100 ####[facility] [address] [place], [address] Bedside Glucoseon 12-09-2023 FINGERSTICK GLU 151 mg/dL High 74-106 [facility] Comment on above: Result Comment: DUNCAN GEMENT OF PATIENT CARE PER NURSING PROTOCOL Performed By: #### L 501.080 ####[facility] [address] [place], [address] FINGERSTICK GLU 155 mg/dL High 74-106 [facility] Comment on above: Result Comment: DUNCAN GEMENT OF PATIENT CARE PER NURSING PROTOCOL Performed By: #### L 501.080 ####[facility] [address] [place], [address] FINGERSTICK GLU 200 mg/dL High 74-106 [facility] Comment on above: Result Comment: DUNCAN GEMENT OF PATIENT CARE PER NURSING PROTOCOL Performed By: #### L 501.080 ####[facility] [address] [place], [address] FINGERSTICK GLU 140 mg/dL High -106 [facility] Comment on above: Result Comment: DUNCAN GEMENT OF PATIENT CARE PER NURSING PROTOCOL Performed By: #### L 501.080 ####[facility] [address] [place], [address] CBC W/Diff, Automatedon 10-2 Absolute Lymph 1.21 X10 3/uL Normal 0.83-4.51 [facility] Comment on above: Performed By: #### L 500.2500, L100.0100 ####[facility] [address] [place], [address] Absolute Neut 5.9 X10 3/uL Normal 2.0-7.7 [facility] Comment on above: Performed By: #### L 500.2500, L100.0100 ####[facility] [address] [place], [address] Basophils/100 WBC (Bld) 0.4 % Normal 0-1 [facility] Comment on above: Performed By: #### L 500.2500, L100.0100 ####[facility] [address] [place], [address] Eosinophils/100 WBC (Bld) 3.8 % Normal 0-5 [facility] Comment on above: Performed By: #### L 500.2500, L100.0100 ####[facility] [address] [place], [address] Erythrocyte distribution width (RBC) [Ratio] 15.0 % High 11.6-14.6 [facility] Comment on above: Performed By: #### L 500.2500, L100.0100 ####[facility] [address] [place], [address] Hematocrit (Bld) [Volume fraction] 32.5 % Low 37-47 [facility] Comment on above: Performed By: #### L 500.2500, L100.0100 ####[facility] [address] [place], [address] Hemoglobin (Bld) [Mass/Vol] 10.3 g/dL Low 12.0-15.0 [facility] Comment on above: Performed By: #### L 500.2500, L100.0100 ####[facility] [address] [place], [address] IG% 0.400 Normal 0.0-0.9 [facility] Comment on above: Result Comment: IG% - Immature Granulocytes (promyelocytes, myelocytes andmetamyelocytes) > 1% indicates that a LEFT SHIFT is Present. Performed By: #### L 500.2500, L100.0100 ####[facility] [address] [place], [address] Lymphocytes/100 WBC (Bld) 15.0 % Low 19-41 [facility] Comment on above: Performed By: #### L 500.2500, L100.0100 ####[facility] [address] [place], [address] MCH (RBC) [Entitic mass] 27.7 pg Normal 27.0-32.0 [facility] Comment on above: Performed By: #### L 500.2500, L100.0100 ####[facility] [address] [place], [address] MCHC (RBC) [Mass/Vol] 31.7 g/dL Low 32-36 [facility] Comment on above: Performed By: #### L 500.2500, L100.0100 ####[facility] [address] [place], [address] MCV (RBC) [Entitic vol] 87.4 fL Normal 81-99 [facility] Comment on above: Performed By: #### L 500.2500, L100.0100 ####[facility] [address] [place], [address] Monocytes/100 WBC (Bld) 7.0 % Normal 0-10 [facility] Comment on above: Performed By: #### L 500.2500, L100.0100 ####[facility] [address] [place], [address] Neutrophils/100 WBC (Bld) 73.4 % High 47-70 [facility] Comment on above: Performed By: #### L 500.2500, L100.0100 ####[facility] [address] [place], [address] Nucleated RBC (Bld) [#/Vol] 0 10*3/uL Normal 0-5 [facility] Comment on above: Performed By: #### L 500.2500, L100.0100 ####[facility] [address] [place], [address] Platelet mean volume (Bld) [Entitic vol] 11.2 fL Normal 6.2-12.0 [facility] Comment on above: Performed By: #### L 500.2500, L100.0100 ####[facility] [address] [place], [address] Platelets (Bld) [#/Vol] 203 10*3/uL Normal 150-450 [facility] Comment on above: Performed By: #### L 500.2500, L100.0100 ####[facility] [address] [place], [address] RBC (Bld) [#/Vol] 3.72 10*6/uL Low 4.2-5.4 [facility] Comment on above: Performed By: #### L 500.2500, L100.0100 ####[facility] [address] [place], [address] RDW SD 48.1 fl High 35.1-43.9 [facility] Comment on above: Performed By: #### L 500.2500, L100.0100 ####[facility] [address] [place], [address] WBC (Bld) [#/Vol] 8.1 10*3/uL Normal 4.4-11.0 [facility] Comment on above: Performed By: #### L 500.2500, L100.0100 ####[facility] [address] [place], [address] Vancomycin, Trough Levelon VANCO, TROUGH 19.2 ug/mL High 5.0-15.0 [facility] Comment on above: Order Comment: Comme nts: DRAW 30 MIN PRIOR TO [id number] Result Comment: VANC OMYCIN STANDARED DRUG THERAPY TROUGH LEVEL: 5.0 - 15.0 mg/LVANCOMYCIN HIGH INTENSITY THERAPY TROUGH LEVEL: 15.0 - 20.0 mg/LHigh Intensity therapy recommended for serious lifethreatening infections include:- Ztligrbutl-Gnfdpzzunved-Joanapabd (Ventilator/Healtcare Associated)-SepsisPLEASE CONTACT PHARMACY SERVICES (#3152) FOR INTERPRETATIONOF RESULTS. Performed By: #### L 329.7080 ####[facility] [address] [place], [address] Bedside Glucoseon 12-08-2023 FINGERSTICK GLU 191 mg/dL High 74-106 [facility] Comment on above: Result Comment: DUNCAN GEMENT OF PATIENT CARE PER NURSING PROTOCOL Performed By: #### L 501.080 ####[facility] [address] [place], [address] FINGERSTICK GLU 157 mg/dL High 74-106 [facility] Comment on above: Result Comment: DUNCAN GEMENT OF PATIENT CARE PER NURSING PROTOCOL Performed By: #### L 501.080 ####[facility] [address] [place], [address] FINGERSTICK GLU 179 mg/dL High -106 [facility] Comment on above: Result Comment: DUNCAN GEMENT OF PATIENT CARE PER NURSING PROTOCOL Performed By: #### L 501.080 ####[facility] [address] [place], [address] FINGERSTICK GLU 186 mg/dL High -106 [facility] Comment on above: Result Comment: DUNCAN GEMENT OF PATIENT CARE PER NURSING PROTOCOL Performed By: #### L 501.080 ####[facility] [address] [place], [address] CBC W/Diff, Automatedon 10- Absolute Lymph 2.05 X10 3/uL Normal 0.83-4.51 [facility] Comment on above: Performed By: #### L 100.0100, L500.4050, L501.6710 ####[facility] [address] [place], [address] Absolute Neut 5.4 X10 3/uL Normal 2.0-7.7 [facility] Comment on above: Performed By: #### L 100.0100, L500.4050, L501.6710 ####[facility] [address] [place], [address] Basophils/100 WBC (Bld) 0.5 % Normal 0-1 [facility] Comment on above: Performed By: #### L 100.0100, L500.4050, L501.6710 ####[facility] [address] [place], [address] Eosinophils/100 WBC (Bld) 3.8 % Normal 0-5 [facility] Comment on above: Performed By: #### L 100.0100, L500.4050, L501.6710 ####[facility] [address] [place], [address] Erythrocyte distribution width (RBC) [Ratio] 14.8 % High 11.6-14.6 [facility] Comment on above: Performed By: #### L 100.0100, L500.4050, L501.6710 ####[facility] [address] [place], [address] Hematocrit (Bld) [Volume fraction] 35.0 % Low 37-47 [facility] Comment on above: Performed By: #### L 100.0100, L500.4050, L501.6710 ####[facility] [address] [place], [address] Hemoglobin (Bld) [Mass/Vol] 11.1 g/dL Low 12.0-15.0 [facility] Comment on above: Performed By: #### L 100.0100, L500.4050, L501.6710 ####[facility] [address] [place], [address] IG% 0.400 Normal 0.0-0.9 [facility] Comment on above: Result Comment: IG% - Immature Granulocytes (promyelocytes, myelocytes andmetamyelocytes) > 1% indicates that a LEFT SHIFT is Present. Performed By: #### L 100.0100, L500.4050, L501.6710 ####[facility] [address] [place], [address] Lymphocytes/100 WBC (Bld) 24.1 % Normal 19-41 [facility] Comment on above: Performed By: #### L 100.0100, L500.4050, L501.6710 ####[facility] [address] [place], [address] MCH (RBC) [Entitic mass] 27.5 pg Normal 27.0-32.0 [facility] Comment on above: Performed By: #### L 100.0100, L500.4050, L501.6710 ####[facility] [address] [place], [address] MCHC (RBC) [Mass/Vol] 31.7 g/dL Low 32-36 [facility] Comment on above: Performed By: #### L 100.0100, L500.4050, L501.6710 ####[facility] [address] [place], [address] MCV (RBC) [Entitic vol] 86.6 fL Normal 81-99 [facility] Comment on above: Performed By: #### L 100.0100, L500.4050, L501.6710 ####[facility] [address] [place], [address] Monocytes/100 WBC (Bld) 7.7 % Normal 0-10 [facility] Comment on above: Performed By: #### L 100.0100, L500.4050, L501.6710 ####[facility] [address] [place], [address] Neutrophils/100 WBC (Bld) 63.5 % Normal 47-70 [facility] Comment on above: Performed By: #### L 100.0100, L500.4050, L501.6710 ####[facility] [address] [place], [address] Nucleated RBC (Bld) [#/Vol] 0 10*3/uL Normal 0-5 [facility] Comment on above: Performed By: #### L 100.0100, L500.4050, L501.6710 ####[facility] [address] [place], [address] Platelet mean volume (Bld) [Entitic vol] 11.4 fL Normal 6.2-12.0 [facility] Comment on above: Performed By: #### L 100.0100, L500.4050, L501.6710 ####[facility] [address] [place], [address] Platelets (Bld) [#/Vol] 193 10*3/uL Normal 150-450 [facility] Comment on above: Performed By: #### L 100.0100, L500.4050, L501.6710 ####[facility] [address] [place], [address] RBC (Bld) [#/Vol] 4.04 10*6/uL Low 4.2-5.4 [facility] Comment on above: Performed By: #### L 100.0100, L500.4050, L501.6710 ####[facility] [address] [place], [address] RDW SD 47.6 fl High 35.1-43.9 [facility] Comment on above: Performed By: #### L 100.0100, L500.4050, L501.6710 ####[facility] [address] [place], [address] WBC (Bld) [#/Vol] 8.5 10*3/uL Normal 4.4-11.0 [facility] Comment on above: Performed By: #### L 100.0100, L500.4050, L501.6710 ####[facility] [address] [place], [address] CRPon 12-08-2023 C-REACTIVE PROT 102.00 mg/L High 0.0-3.0 [facility] Comment on above: Result Comment: C-Re active Protein (CRP) provides useful information for thediagnosis, therapy and monitoring of inflammatory processesand associated diseases. For the evaluation of Relative Riskfor Cardiovascular Disease, a High Sensitivity CRP (HSCRP)should be ordered. Performed By: #### L 100.0100, L500.4050, L501.6710 ####[facility] [address] [place], [address] Comprehensive Metabolic Prof ilon 12-08-2023 Albumin [Mass/Vol] 2.5 g/dL Low 3.2-5.0 [facility] Comment on above: Performed By: #### L 100.0100, L500.4050, L501.6710 ####[facility] [address] [place], [address] Albumin/Globulin [Mass ratio] 0.6 {ratio} Low 0.9-2.4 [facility] Comment on above: Performed By: #### L 100.0100, L500.4050, L501.6710 ####[facility] [address] [place], [address] ALK P 83 U/L Normal 45-117 [facility] Comment on above: Performed By: #### L 100.0100, L500.4050, L501.6710 ####[facility] [address] [place], [address] ALT [Catalytic activity/Vol] 12 U/L Low 13-56 [facility] Comment on above: Performed By: #### L 100.0100, L500.4050, L501.6710 ####[facility] [address] [place], [address] AST [Catalytic activity/Vol] 13 U/L Low 15-37 [facility] Comment on above: Performed By: #### L 100.0100, L500.4050, L501.6710 ####[facility] [address] [place], [address] Bilirubin [Mass/Vol] 1.10 mg/dL High 0.20-1.00 [facility] Comment on above: Result Comment: For patients on eltrombopag therapy, use of Dimension [place] TBIL is not recommended. Performed By: #### L 100.0100, L500.4050, L501.6710 ####[facility] [address] [place], [address] BUN/CRE 23.4 RATIO High 10-20 [facility] Comment on above: Performed By: #### L 100.0100, L500.4050, L501.6710 ####[facility] [address] [place], [address] CA,Total 9.0 mg/dL Normal 8.5-10.1 [facility] Comment on above: Performed By: #### L 100.0100, L500.4050, L501.6710 ####[facility] [address] [place], [address] Chloride [Moles/Vol] 104 mmol/L Normal 98-107 [facility] Comment on above: Performed By: #### L 100.0100, L500.4050, L501.6710 ####[facility] [address] [place], [address] CO2 [Moles/Vol] 27.0 mmol/L Normal 21.0-32.0 [facility] Comment on above: Performed By: #### L 100.0100, L500.4050, L501.6710 ####[facility] [address] [place], [address] Creatinine [Mass/Vol] 0.94 mg/dL Normal 0.55-1.02 [facility] Comment on above: Result Comment: The validity of the calculated GFR GFRAA in patients over70 years has not been determined. Clinical correlation isessential. Performed By: #### L 100.0100, L500.4050, L501.6710 ####[facility] [address] [place], [address] ECRCL 66.38 ml/min Normal [facility] Comment on above: Performed By: #### L 100.0100, L500.4050, L501.6710 ####[facility] [address] [place], [address] EST GFR - AA 77 mL/min Normal >60 [facility] Comment on above: Result Comment: Afri can Vietnamese GFR Calc Performed By: #### L 100.0100, L500.4050, L501.6710 ####[facility] [address] [place], [address] GAP 6 Normal 5-15 [facility] Comment on above: Performed By: #### L 100.0100, L500.4050, L501.6710 ####[facility] [address] [place], [address] GFR/1.73 sq M.predicted among non-blacks MDRD (S/P/Bld) [Vol rate/Area] 64 mL/min/{1.73_m2} Normal >60 [facility] Comment on above: Result Comment: Non- GFR Calc Performed By: #### L 100.0100, L500.4050, L501.6710 ####[facility] [address] [place], [address] Globulin (S) [Mass/Vol] 4.4 g/dL High 2.2-4.2 [facility] Comment on above: Performed By: #### L 100.0100, L500.4050, L501.6710 ####[facility] [address] [place], [address] Glucose [Mass/Vol] 193 mg/dL High 74-106 [facility] Comment on above: Result Comment: Fast ing Glucose result greater than or equal to 126 mg/dLsuggests DIABETES MELLITUS per A.D.A. criteria. Performed By: #### L 100.0100, L500.4050, L501.6710 ####[facility] [address] [place], [address] Potassium [Moles/Vol] 3.4 mmol/L Low 3.5-5.1 [facility] Comment on above: Performed By: #### L 100.0100, L500.4050, L501.6710 ####[facility] [address] [place], [address] Sodium [Moles/Vol] 137 mmol/L Normal 136-145 [facility] Comment on above: Performed By: #### L 100.0100, L500.4050, L501.6710 ####[facility] [address] [place], [address] T PROT 6.9 g/dL Normal 6.4-8.2 [facility] Comment on above: Performed By: #### L 100.0100, L500.4050, L501.6710 ####[facility] [address] [place], [address] Urea nitrogen [Mass/Vol] 22 mg/dL High 7-18 [facility] Comment on above: Performed By: #### L 100.0100, L500.4050, L501.6710 ####[facility] [address] [place], [address] Lower Ext/No Jt/w/oon 2023 Lower Ext/No Jt/w/o Normal [facility] Basic Metabolic Profile (BMP )on 12-07-2023 BUN/CRE 29.7 RATIO High 12-02 [facility] Comment on above: Performed By: #### L 500.2500, L501.6710, L100.0100, L101.9900, L503.6005 ####[facility] [address] [place], [address] CA,Total 9.7 mg/dL Normal 8.5-10.1 [facility] Comment on above: Performed By: #### L 500.2500, L501.6710, L100.0100, L101.9900, L503.6005 ####[facility] [address] [place], [address] Chloride [Moles/Vol] 101 mmol/L Normal 98-107 [facility] Comment on above: Performed By: #### L 500.2500, L501.6710, L100.0100, L101.9900, L503.6005 ####[facility] [address] [place], [address] CO2 [Moles/Vol] 28.0 mmol/L Normal 21.0-32.0 [facility] Comment on above: Performed By: #### L 500.2500, L501.6710, L100.0100, L101.9900, L503.6005 ####[facility] [address] [place], [address] Creatinine [Mass/Vol] 0.94 mg/dL Normal 0.55-1.02 [facility] Comment on above: Result Comment: The validity of the calculated GFR GFRAA in patients over70 years has not been determined. Clinical correlation isessential. Performed By: #### L 500.2500, L501.6710, L100.0100, L101.9900, L503.6005 ####[facility] [address] [place], [address] ECRCL 66.86 ml/min Normal [facility] Comment on above: Performed By: #### L 500.2500, L501.6710, L100.0100, L101.9900, L503.6005 ####[facility] [address] [place], [address] EST GFR - AA 77 mL/min Normal >60 [facility] Comment on above: Result Comment: Afri can Vietnamese GFR Calc Performed By: #### L 500.2500, L501.6710, L100.0100, L101.9900, L503.6005 ####[facility] [address] [place], [address] GAP 7 Normal 5-15 [facility] Comment on above: Performed By: #### L 500.2500, L501.6710, L100.0100, L101.9900, L503.6005 ####[facility] [address] [place], [address] GFR/1.73 sq M.predicted among non-blacks MDRD (S/P/Bld) [Vol rate/Area] 63 mL/min/{1.73_m2} Normal >60 [facility] Comment on above: Result Comment: Non- GFR Calc Performed By: #### L 500.2500, L501.6710, L100.0100, L101.9900, L503.6005 ####[facility] [address] [place], [address] Glucose [Mass/Vol] 211 mg/dL High 74-106 [facility] Comment on above: Result Comment: Gluc ose result greater than or equal to 200 mg/dLsuggests DIABETES MELLITUS per A.D.A. criteria. Performed By: #### L 500.2500, L501.6710, L100.0100, L101.9900, L503.6005 ####[facility] [address] [place], [address] Potassium [Moles/Vol] 3.7 mmol/L Normal 3.5-5.1 [facility] Comment on above: Performed By: #### L 500.2500, L501.6710, L100.0100, L101.9900, L503.6005 ####[facility] [address] [place], [address] Sodium [Moles/Vol] 136 mmol/L Normal 136-145 [facility] Comment on above: Performed By: #### L 500.2500, L501.6710, L100.0100, L101.9900, L503.6005 ####[facility] [address] [place], [address] Urea nitrogen [Mass/Vol] 28 mg/dL High 7-18 [facility] Comment on above: Performed By: #### L 500.2500, L501.6710, L100.0100, L101.9900, L503.6005 ####[facility] [address] [place], [address] Bedside Glucoseon 12-07-2023 FINGERSTICK GLU 235 mg/dL High 74-106 [facility] Comment on above: Result Comment: DUNCAN GEMENT OF PATIENT CARE PER NURSING PROTOCOL Performed By: #### L 501.080 ####[facility] [address] [place], [address] FINGERSTICK GLU 222 mg/dL High 74-106 [facility] Comment on above: Result Comment: DUNCAN GEMENT OF PATIENT CARE PER NURSING PROTOCOL Performed By: #### L 501.080 ####[facility] [address] [place], [address] FINGERSTICK GLU 210 mg/dL High 74-106 [facility] Comment on above: Result Comment: DUNCAN GEMENT OF PATIENT CARE PER NURSING PROTOCOL Performed By: #### L 501.080 ####[facility] [address] [place], [address] FINGERSTICK GLU 190 mg/dL High 74-106 [facility] Comment on above: Result Comment: DUNCAN URIBE OF PATIENT CARE PER NURSING PROTOCOL Performed By: #### L 501.080 ####[facility] [address] [place], [address] CBC W/Diff, Automatedon 10-2 Absolute Lymph 2.57 X10 3/uL Normal 0.83-4.51 [facility] Comment on above: Performed By: #### L 500.2500, L501.6710, L100.0100, L101.9900, L503.6005 ####[facility] [address] [place], [address] Absolute Neut 8.1 X10 3/uL High 2.0-7.7 [facility] Comment on above: Performed By: #### L 500.2500, L501.6710, L100.0100, L101.9900, L503.6005 ####[facility] [address] [place], [address] Basophils/100 WBC (Bld) 0.4 % Normal 0-1 [facility] Comment on above: Performed By: #### L 500.2500, L501.6710, L100.0100, L101.9900, L503.6005 ####[facility] [address] [place], [address] Eosinophils/100 WBC (Bld) 2.0 % Normal 0-5 [facility] Comment on above: Performed By: #### L 500.2500, L501.6710, L100.0100, L101.9900, L503.6005 ####[facility] [address] [place], [address] Erythrocyte distribution width (RBC) [Ratio] 14.7 % High 11.6-14.6 [facility] Comment on above: Performed By: #### L 500.2500, L501.6710, L100.0100, L101.9900, L503.6005 ####[facility] [address] [place], [address] Hematocrit (Bld) [Volume fraction] 35.6 % Low 37-47 [facility] Comment on above: Performed By: #### L 500.2500, L501.6710, L100.0100, L101.9900, L503.6005 ####[facility] [address] [place], [address] Hemoglobin (Bld) [Mass/Vol] 11.6 g/dL Low 12.0-15.0 [facility] Comment on above: Performed By: #### L 500.2500, L501.6710, L100.0100, L101.9900, L503.6005 ####[facility] [address] [place], [address] IG% 0.300 Normal 0.0-0.9 [facility] Comment on above: Result Comment: IG% - Immature Granulocytes (promyelocytes, myelocytes andmetamyelocytes) > 1% indicates that a LEFT SHIFT is Present. Performed By: #### L 500.2500, L501.6710, L100.0100, L101.9900, L503.6005 ####[facility] [address] [place], [address] Lymphocytes/100 WBC (Bld) 21.7 % Normal 19-41 [facility] Comment on above: Performed By: #### L 500.2500, L501.6710, L100.0100, L101.9900, L503.6005 ####[facility] [address] [place], [address] MCH (RBC) [Entitic mass] 28.0 pg Normal 27.0-32.0 [facility] Comment on above: Performed By: #### L 500.2500, L501.6710, L100.0100, L101.9900, L503.6005 ####[facility] [address] [place], [address] MCHC (RBC) [Mass/Vol] 32.6 g/dL Normal 32-36 [facility] Comment on above: Performed By: #### L 500.2500, L501.6710, L100.0100, L101.9900, L503.6005 ####[facility] [address] [place], [address] MCV (RBC) [Entitic vol] 86.0 fL Normal 81-99 [facility] Comment on above: Performed By: #### L 500.2500, L501.6710, L100.0100, L101.9900, L503.6005 ####[facility] [address] [place], [address] Monocytes/100 WBC (Bld) 6.8 % Normal 0-10 [facility] Comment on above: Performed By: #### L 500.2500, L501.6710, L100.0100, L101.9900, L503.6005 ####[facility] [address] [place], [address] Neutrophils/100 WBC (Bld) 68.8 % Normal 47-70 [facility] Comment on above: Performed By: #### L 500.2500, L501.6710, L100.0100, L101.9900, L503.6005 ####[facility] [address] [place], [address] Nucleated RBC (Bld) [#/Vol] 0 10*3/uL Normal 0-5 [facility] Comment on above: Performed By: #### L 500.2500, L501.6710, L100.0100, L101.9900, L503.6005 ####[facility] [address] [place], [address] Platelet mean volume (Bld) [Entitic vol] 11.5 fL Normal 6.2-12.0 [facility] Comment on above: Performed By: #### L 500.2500, L501.6710, L100.0100, L101.9900, L503.6005 ####[facility] [address] [place], [address] Platelets (Bld) [#/Vol] 207 10*3/uL Normal 150-450 [facility] Comment on above: Performed By: #### L 500.2500, L501.6710, L100.0100, L101.9900, L503.6005 ####[facility] [address] [place], [address] RBC (Bld) [#/Vol] 4.14 10*6/uL Low 4.2-5.4 [facility] Comment on above: Performed By: #### L 500.2500, L501.6710, L100.0100, L101.9900, L503.6005 ####[facility] [address] [place], [address] RDW SD 46.0 fl High 35.1-43.9 [facility] Comment on above: Performed By: #### L 500.2500, L501.6710, L100.0100, L101.9900, L503.6005 ####[facility] [address] [place], [address] WBC (Bld) [#/Vol] 11.8 10*3/uL High 4.4-11.0 [facility] Comment on above: Performed By: #### L 500.2500, L501.6710, L100.0100, L101.9900, L503.6005 ####[facility] [address] [place], [address] CRPon 10-24-2024 C-REACTIVE PROT 120.00 mg/L High 0.0-3.0 [facility] Comment on above: Result Comment: C-Re active Protein (CRP) provides useful information for thediagnosis, therapy and monitoring of inflammatory processesand associated diseases. For the evaluation of Relative Riskfor Cardiovascular Disease, a High Sensitivity CRP (HSCRP)should be ordered. Performed By: #### L 500.2500, L501.6710, L100.0100, L101.9900, L503.6005 ####[facility] [address] [place], [address] Emergency Department Summary on 12-07-2023 Emergency Department Summary Normal [facility] Erythrocyte Sed Rateon 12-06 SED RATE 54 mm/hr High 0-30 [facility] Comment on above: Performed By: #### L 500.2500, L501.6710, L100.0100, L101.9900, L503.6005 ####[facility] [address] [place], [address] Foot min 3 Viewson 4 Foot min 3 Views Normal [facility] H AND P Exam - Hospitaliston 12-07-2023 H&P Exam - Hospitalist Normal [facility] Lactic Acidon 12-07-2023 Lactate [Moles/Vol] 1.5 mmol/L Normal 0.4-1.9 [facility] Comment on above: Order Comment: Y Performed By: #### L 500.2500, L501.6710, L100.0100, L101.9900, L503.6005 ####[facility] [address] [place], [address] Bedside Glucoseon 12-06-2023 FINGERSTICK GLU 197 mg/dL High 74-106 [facility] Comment on above: Result Comment: DUNCAN URIBE OF PATIENT CARE PER NURSING PROTOCOL Performed By: #### L 501.080 ####[facility] [address] [place], [address] FINGERSTICK GLU 202 mg/dL High 74-106 [facility] Comment on above: Result Comment: DUNCAN GEMENT OF PATIENT CARE PER NURSING PROTOCOL Performed By: #### L 501.080 ####[facility] [address] [place], [address] Wound Ctr History AND Physic artis 12-06-2023 Wound Ctr History & Physical Normal [facility] Bedside Glucoseon 12-05-2023 FINGERSTICK GLU 356 mg/dL High 74-106 [facility] Comment on above: Result Comment: DUNCAN GEMENT OF PATIENT CARE PER NURSING PROTOCOL Performed By: #### L 501.080 ####[facility] [address] [place], [address] Bedside Glucoseon 12-04-2023 FINGERSTICK GLU 137 mg/dL High [address] [place] [address] Comment on above: Result Comment: DUNCAN GEMENT OF PATIENT CARE PER NURSING PROTOCOL Performed By: #### L 501.080 ####[facility] [address] [place], [address] FINGERSTICK GLU 249 mg/dL [address] Comment on above: Result Comment: DUNCAN GEMENT OF PATIENT CARE PER NURSING PROTOCOL Performed By: #### L 501.080 ####[facility] [address] [place], [address] Bedside Glucoseon 12-01-2023 FINGERSTICK GLU 111 mg/dL High [address] [place] [address] Comment on above: Result Comment: DUNCAN GEMENT OF PATIENT CARE PER NURSING PROTOCOL Performed By: #### L 501.080 ####[facility] [address] [place], [address] FINGERSTICK GLU 207 mg/dL High [address] [place] [address] Comment on above: Result Comment: DUNCAN GEMENT OF PATIENT CARE PER NURSING PROTOCOL Performed By: #### L 501.080 ####[facility] [address] [place], [address] Bedside Glucoseon -17-2023 FINGERSTICK GLU 100 mg/dL Normal 74-106 [facility] Comment on above: Result Comment: DUNCAN GEMENT OF PATIENT CARE PER NURSING PROTOCOL Performed By: #### L 501.080 ####[facility] [address] [place], [address] FINGERSTICK GLU 186 mg/dL High 74-106 [facility] Comment on above: Result Comment: DUNCAN GEMENT OF PATIENT CARE PER NURSING PROTOCOL Performed By: #### L 501.080 ####[facility] [address] [place], [address] Bedside Glucoseon 11-29-2023 FINGERSTICK GLU 158 mg/dL High -106 [facility] Comment on above: Result Comment: DUNCAN GEMENT OF PATIENT CARE PER NURSING PROTOCOL Performed By: #### L 501.080 ####[facility] [address] [place], [address] FINGERSTICK GLU 215 mg/dL High [facility]106 [facility] Comment on above: Result Comment: DUNCAN GEMENT OF PATIENT CARE PER NURSING PROTOCOL Performed By: #### L 501.080 ####[facility] [address] [place], [address] Bedside Glucoseon 11-28-2023 FINGERSTICK GLU 105 mg/dL Normal 74-106 [facility] Comment on above: Result Comment: DUNCAN GEMENT OF PATIENT CARE PER NURSING PROTOCOL Performed By: #### L 501.080 ####[facility] [address] [place], [address] FINGERSTICK GLU 214 mg/dL High 74-106 [facility] Comment on above: Result Comment: DUNCAN GEMENT OF PATIENT CARE PER NURSING PROTOCOL Performed By: #### L 501.080 ####[facility] [address] [place], [address] Bedside Glucoseon 10-14-2024 FINGERSTICK GLU 107 mg/dL High [address] [place] [address] Comment on above: Result Comment: DUNCAN GEMENT OF PATIENT CARE PER NURSING PROTOCOL Performed By: #### L 501.080 ####[facility] [address] [place], [address] FINGERSTICK GLU 201 mg/dL High [address] [place] [address] Comment on above: Result Comment: DUNCAN GEMENT OF PATIENT CARE PER NURSING PROTOCOL Performed By: #### L 501.080 ####[facility] [address] [place], [address] Bedside Glucoseon 11-24-2023 FINGERSTICK GLU 127 mg/dL [address] Comment on above: Result Comment: DUNCAN GEMENT OF PATIENT CARE PER NURSING PROTOCOL Performed By: #### L 501.080 ####[facility] [address] [place], [address] FINGERSTICK GLU 185 mg/dL [address] Comment on above: Result Comment: DUNCAN GEMENT OF PATIENT CARE PER NURSING PROTOCOL Performed By: #### L 501.080 ####[facility] [address] [place], [address] Bedside Glucoseon 11-23-2023 FINGERSTICK GLU 246 mg/dL [address] Comment on above: Result Comment: DUNCAN GEMENT OF PATIENT CARE PER NURSING PROTOCOL Performed By: #### L 501.080 ####[facility] [address] [place], [address] FINGERSTICK GLU 270 mg/dL [address] Comment on above: Result Comment: DUNCAN GEMENT OF PATIENT CARE PER NURSING PROTOCOL Performed By: #### L 501.080 ####[facility] [address] [place], [address] Bedside Glucoseon 11-22-2023 FINGERSTICK GLU 216 mg/dL [address] Comment on above: Result Comment: DUNCAN GEMENT OF PATIENT CARE PER NURSING PROTOCOL Performed By: #### L 501.080 ####[facility] [address] [facility] [address] FINGERSTICK GLU 228 mg/dL High [address] [place] [address] Comment on above: Result Comment: DUNCAN GEMENT OF PATIENT CARE PER NURSING PROTOCOL Performed By: #### L 501.080 ####[facility] [address] [facility] [address] Bedside Glucoseon 11-21-2023 FINGERSTICK GLU 130 mg/dL High [address] [place] [address] Comment on above: Result Comment: DUNCAN GEMENT OF PATIENT CARE PER NURSING PROTOCOL Performed By: #### L 501.080 ####[facility] [address] [facility] [address] FINGERSTICK GLU 238 mg/dL High [address] [place] [address] Comment on above: Result Comment: DUNCAN GEMENT OF PATIENT CARE PER NURSING PROTOCOL Performed By: #### L 501.080 ####[facility] [address] [facility] [address] Bedside Glucoseon 11-20-2023 FINGERSTICK GLU 137 mg/dL High [address] [place] [address] Comment on above: Result Comment: DUNCAN GEMENT OF PATIENT CARE PER NURSING PROTOCOL Performed By: #### L 501.080 ####[facility] [address] [facility] [address] FINGERSTICK GLU 190 mg/dL High [address] [place] [address] Comment on above: Result Comment: DUNCAN GEMENT OF PATIENT CARE PER NURSING PROTOCOL Performed By: #### L 501.080 ####[facility] [address] [facility] [address] Bedside Glucoseon 11-17-2023 FINGERSTICK GLU 178 mg/dL High [address] [place] [address] Comment on above: Result Comment: DUNCAN GEMENT OF PATIENT CARE PER NURSING PROTOCOL Performed By: #### L 501.080 ####[facility] [address] [place], [address] FINGERSTICK GLU 179 mg/dL High 74-106 [facility] Comment on above: Result Comment: DUNCAN GEMENT OF PATIENT CARE PER NURSING PROTOCOL Performed By: #### L 501.080 ####[facility] [address] [place], [address] Bedside Glucoseon 11-16-2023 FINGERSTICK GLU 157 mg/dL High 74-106 [facility] Comment on above: Result Comment: DUNCAN GEMENT OF PATIENT CARE PER NURSING PROTOCOL Performed By: #### L 501.080 ####[facility] [address] [place], [address] FINGERSTICK GLU 197 mg/dL High -[address] [place] [address] Comment on above: Result Comment: DUNCAN GEMENT OF PATIENT CARE PER NURSING PROTOCOL Performed By: #### L 501.080 ####[facility] [address] [place], [address] Bedside Glucoseon 11-15-2023 FINGERSTICK GLU 83 mg/dL Normal 74-106 [facility] Comment on above: Result Comment: DUNCAN GEMENT OF PATIENT CARE PER NURSING PROTOCOL Performed By: #### L 501.080 ####[facility] [address] [place], [address] FINGERSTICK GLU 199 mg/dL High [address] [place] [address] Comment on above: Result Comment: DUNCAN GEMENT OF PATIENT CARE PER NURSING PROTOCOL Performed By: #### L 501.080 ####[facility] [address] [place], [address] Bedside Glucoseon 11-14-2023 FINGERSTICK GLU 193 mg/dL High -106 [facility] Comment on above: Result Comment: DUNCAN GEMENT OF PATIENT CARE PER NURSING PROTOCOL Performed By: #### L 501.080 ####[facility] [address] [place], [address] FINGERSTICK GLU 221 mg/dL High [facility]106 [facility] Comment on above: Result Comment: DUNCAN GEMENT OF PATIENT CARE PER NURSING PROTOCOL Performed By: #### L 501.080 ####[facility] [address] [place], [address] Bedside Glucoseon 11-13-2023 FINGERSTICK GLU 206 mg/dL High -106 [facility] Comment on above: Result Comment: DUNCAN GEMENT OF PATIENT CARE PER NURSING PROTOCOL Performed By: #### L 501.080 ####[facility] [address] [place], [address] FINGERSTICK GLU 223 mg/dL High [address] [place] [address] Comment on above: Result Comment: DUNCAN GEMENT OF PATIENT CARE PER NURSING PROTOCOL Performed By: #### L 501.080 ####[facility] [address] [place], [address] Bedside Glucoseon 11-10-2023 FINGERSTICK GLU 241 mg/dL High [address] [place] [address] Comment on above: Result Comment: DUNCAN GEMENT OF PATIENT CARE PER NURSING PROTOCOL Performed By: #### L 501.080 ####[facility] [address] [place], [address] FINGERSTICK GLU 261 mg/dL [address] Comment on above: Result Comment: DUNCAN GEMENT OF PATIENT CARE PER NURSING PROTOCOL Performed By: #### L 501.080 ####[facility] [address] [place], [address] Bedside Glucoseon 11-09-2023 FINGERSTICK GLU 131 mg/dL [address] Comment on above: Result Comment: DUNCAN GEMENT OF PATIENT CARE PER NURSING PROTOCOL Performed By: #### L 501.080 ####[facility] [address] [place], [address] FINGERSTICK GLU 166 mg/dL High -106 [facility] Comment on above: Result Comment: DUNCAN GEMENT OF PATIENT CARE PER NURSING PROTOCOL Performed By: #### L 501.080 ####[facility] [address] [place], [address] Bedside Glucoseon 11-08-2023 FINGERSTICK GLU 170 mg/dL High [address] [place] [address] Comment on above: Result Comment: DUNCAN GEMENT OF PATIENT CARE PER NURSING PROTOCOL Performed By: #### L 501.080 ####[facility] [address] [place], [address] FINGERSTICK GLU 198 mg/dL [address] Comment on above: Result Comment: DUNCAN GEMENT OF PATIENT CARE PER NURSING PROTOCOL Performed By: #### L 501.080 ####[facility] [address] [place], [address] Bedside Glucoseon 11-07-2023 FINGERSTICK GLU 149 mg/dL High [address] [place] [address] Comment on above: Result Comment: DUNCAN GEMENT OF PATIENT CARE PER NURSING PROTOCOL Performed By: #### L 501.080 ####[facility] [address] [place], [address] FINGERSTICK GLU 193 mg/dL [address] Comment on above: Result Comment: DUNCAN GEMENT OF PATIENT CARE PER NURSING PROTOCOL Performed By: #### L 501.080 ####[facility] [address] [place], [address] Bedside Glucoseon 11-06-2023 FINGERSTICK GLU 166 mg/dL [address] Comment on above: Result Comment: DUNCAN GEMENT OF PATIENT CARE PER NURSING PROTOCOL Performed By: #### L 501.080 ####[facility] [address] [place], [address] FINGERSTICK GLU 150 mg/dL High -[address] [place] [address] Comment on above: Result Comment: DUNCAN GEMENT OF PATIENT CARE PER NURSING PROTOCOL Performed By: #### L 501.080 ####[facility] [address] [place], [address] Bedside Glucoseon 11-03-2023 FINGERSTICK GLU 100 mg/dL Normal [address] [place] [address] Comment on above: Result Comment: DUNCAN GEMENT OF PATIENT CARE PER NURSING PROTOCOL Performed By: #### L 501.080 ####[facility] [address] [place], [address] FINGERSTICK GLU 195 mg/dL High [address] [place] [address] Comment on above: Result Comment: DUNCAN GEMENT OF PATIENT CARE PER NURSING PROTOCOL Performed By: #### L 501.080 ####[facility] [address] [place], [address] Bedside Glucoseon 11-02-2023 FINGERSTICK GLU 123 mg/dL High [address] [place] [address] Comment on above: Result Comment: DUNCAN GEMENT OF PATIENT CARE PER NURSING PROTOCOL Performed By: #### L 501.080 ####[facility] [address] [place], [address] FINGERSTICK GLU 176 mg/dL High [address] [place] [address] Comment on above: Result Comment: DUNCAN GEMENT OF PATIENT CARE PER NURSING PROTOCOL Performed By: #### L 501.080 ####[facility] [address] [place], [address] Bedside Glucoseon 10-30-2023 FINGERSTICK GLU 128 mg/dL High [address] [place] [address] Comment on above: Result Comment: DUNCAN GEMENT OF PATIENT CARE PER NURSING PROTOCOL Performed By: #### L 501.080 ####[facility] [address] [place], [address] [facility] Consult on 10-19-2023 [facility] Consult Normal [facility] Absolute lymphocyte countOrd ered By: Janneth Arellano on 04-14-2023 Lymphocytes Auto (Unsp spec) [#/Vol] 2.88 10*3/uL 0.83-4.51 [facility] Automated lymphocyte count a s percentage of total leukocytesOrdered By: Janneth Arellano on 04-14-2023 Lymphocytes/100 WBC Auto (Unsp spec) 28.7 % 19-41 [facility] Basophil percentageOrdered B y: Janneth Arellano on 04-14-2023 Basophils/100 WBC (Bld) 0.9 % 0-1 [facility] Eosinophils/100 WBC (Bld) 5.1 % 0-5 [facility] Hemoglobin (Bld) [Mass/Vol] 14.3 g/dL 12.0-15.0 [facility] Monocytes/100 WBC (Bld) 6.9 % 0-10 [facility] Neutrophils (Bld) [#/Vol] 5.8 10*3/uL 2.0-7.7 [facility] Neutrophils/100 WBC (Bld) 58.1 % 47-70 [facility] WBC (Bld) [#/Vol] 10.0 10*3/uL 4.4-11.0 [facility] Determination of erythrocyte mean corpuscular volume (MCV)Ordered By: Janneth Arellano on 04-14-2023 MCV (RBC) [Entitic vol] 85.1 fL 81-99 [facility] Erythrocyte distribution wid th ratioOrdered By: Janneth Arellano on 04-14-2023 Erythrocyte distribution width (RBC) [Ratio] 15.4 % 11.6-14.6 [facility] Erythrocyte distribution wid th standard deviationOrdered By: Janneth Arellano on 04-14-2023 Erythrocyte distribution width (RBC) [Entitic vol] 47.6 fL 35.1-43.9 [facility] Hematocrit Auto (Bld) [Volum e fraction]Ordered By: Janneth Arellano on 04-14-2023 Hematocrit (Bld) [Volume fraction] 45.7 % 37-47 [facility] Immature granulocytes/100 WB C Auto (Bld)Ordered By: Janneth Arellano on 04-14-2023 Immature granulocytes/100 WBC (Bld) 0.300 % 0.0-0.9 [facility] Comment on above: IG% - Immature Granu locytes (promyelocytes, myelocytes and metamyelocytes) > 1% indicates that a LEFT SHIFT is Present. Iron measurement (mass/mass) Ordered By: Janneth Arellano on 04-14-2023 Iron (Unsp spec) [Mass/Mass] 55 ug/dL 50-170 [facility] Laboratory - Chemistry and C hemistry - challengeOrdered By: Janneth Arellano on 04-14-2023 Ferritin [Mass/Vol] 68 ng/mL 8-252 [facility] Laboratory - Hematology and Cell countsOrdered By: Janneth Arellano on 04-14-2023 MCH (RBC) [Entitic mass] 26.6 pg 27.0-32.0 [facility] MCHC (RBC) [Mass/Vol] 31.3 g/dL 32-36 [facility] Nucleated RBC/100 WBC (Bld) [Ratio] 0 % 0-5 [facility] Platelet mean volume (Bld) [Entitic vol] 12.0 fL 6.2-12.0 [facility] Platelets (Bld) [#/Vol] 201 10*3/uL 150-450 [facility] No Panel InformationOrdered By: Janneth Arellano on 04-14-2023 Free Triiodothyronine (T3) pg/dL 2.3 pg/mL 2.18-3.98 [facility] Thyroglobulin Antibody < 1.0 IU/mL 0.0-0.9 [facility] Comment on above: Thyroglobulin Antibo dy measured by Kiya CoulterMethodologyIt should be noted that the presence of thyroglobulinantibodies may not be pathogenic nor diagnostic, especiallyat very low levels. The assay tree fruit and nut crops farmer has found thatfour percent of individuals without evidence of thyroiddisease or autoimmunity will have positive TgAb levels upto 4 IU/mL. Thyroglobulin Level 40.7 ng/mL 1.5-38.5 [facility] Comment on above: According to the [employer],the reference interval for Thyroglobulin (TG) should berelated to euthyroid patients and not for patients whounderwent thyroidectomy. TG reference intervals for thesepatients depend on the residual mass of the thyroid tissueleft after surgery. Establishing a post-operative baselineis recommended. The assay limit of quantitation is 0.1ng/mLThyroglobulin measured by Kiya Shannon ImmunometricAssay Vitamin D 25-Hydroxy 19.6 ng/mL [facility] Comment on above: Vitamin D 25(OH) Sta tus Range Deficiency <20 ng/mL (50nmol/L) Insufficiency 20 - 30 ng/mL (50 - 75 nmol/L) Sufficiency 30 - 100 ng/mL (75 - 250 nmol/L) Toxicity >100 ng/mL (>250 nmol/L) RBC Auto (Bld) [#/Vol]Ordere d By: Janneth Arellano on 04-14-2023 RBC (Bld) [#/Vol] 5.37 10*6/uL 4.2-5.4 [facility] Serum or plasma thyroid stim ulating hormone (TSH) measurement (units/volume)Ordered By: Janneth Arellano on 04-14-2023 TSH Qn 6.85 uIU/mL 0.358-3.74 [facility] Serum or plasma thyroperoxid ase antibody assay (units/volume)Ordered By: Janneth Arellano on 04-14-2023 TPO Ab Qn [IU]/mL 0-34 [facility] Comment on above: Performed at: [address] [id number] Director: Armen Nichols PhD, Phone: [phone] at: [facility] [id number] Director: Helena Parsons MD, Phone: [phone] Serum or plasma thyroxine (T 4) measurement (mass/volume)Ordered By: Janneth Arellano on 04-14-2023 T4 [Mass/Vol] 7.2 ug/dL 4.8-13.9 [facility] Serum or plasma thyroxine bi nding globulin (TBG) measurement (mass/volume)Ordered By: Janneth Arellano on 04-14-2023 TBG [Mass/Vol] 17 ug/mL 13-39 [facility] Thin prep Papanicolaou smear with manual screeningOrdered By: Janneth Arellano on 04-14-2023 Thin prep Papanicolaou smear with manual screening 0.88 ng/dL 0.76-1.46 [facility] Absolute lymphocyte countOrd ered By: Ellenandre Conway on 04-07-2023 Lymphocytes Auto (Unsp spec) [#/Vol] 2.48 10*3/uL 0.83-4.51 [facility] Automated lymphocyte count a s percentage of total leukocytesOrdered By: Ellen Conway on 04-07-2023 Lymphocytes/100 WBC Auto (Unsp spec) 30.2 % 19-41 [facility] Basophil percentageOrdered B y: Ellen Conway on 04-07-2023 Basophils/100 WBC (Bld) 0.7 % 0-1 [facility] Chloride [Moles/Vol] 110 mmol/L 98-107 [facility] Eosinophils/100 WBC (Bld) 5.1 % 0-5 [facility] Glucose [Mass/Vol] 246 mg/dL 74-106 [facility] Comment on above: Glucose result great er than or equal to 200 mg/dLsuggests DIABETES MELLITUS per A.D.A. criteria. Hemoglobin (Bld) [Mass/Vol] 12.6 g/dL 12.0-15.0 [facility] Monocytes/100 WBC (Bld) 7.4 % 0-10 [facility] Neutrophils (Bld) [#/Vol] 4.6 10*3/uL 2.0-7.7 [facility] Neutrophils/100 WBC (Bld) 56.5 % 47-70 [facility] Potassium [Moles/Vol] 3.7 mmol/L 3.5-5.1 [facility] Sodium [Moles/Vol] 141 mmol/L 136-145 [facility] WBC (Bld) [#/Vol] 8.2 10*3/uL 4.4-11.0 [facility] Determination of erythrocyte mean corpuscular volume (MCV)Ordered By: Ellen Conway on 04-07-2023 MCV (RBC) [Entitic vol] 84.4 fL 81-99 [facility] Erythrocyte distribution wid th ratioOrdered By: Ellen Conway on 04-07-2023 Erythrocyte distribution width (RBC) [Ratio] 16.2 % 11.6-14.6 [facility] Erythrocyte distribution wid th standard deviationOrdered By: Ellen Conway on 04-07-2023 Erythrocyte distribution width (RBC) [Entitic vol] 50.3 fL 35.1-43.9 [facility] Hematocrit Auto (Bld) [Volum e fraction]Ordered By: Ellen Conway on 04-07-2023 Hematocrit (Bld) [Volume fraction] 39.6 % 37-47 [facility] Immature granulocytes/100 WB C Auto (Bld)Ordered By: Ellen Conway on 04-07-2023 Immature granulocytes/100 WBC (Bld) 0.100 % 0.0-0.9 [facility] Comment on above: IG% - Immature Granu locytes (promyelocytes, myelocytes and metamyelocytes) > 1% indicates that a LEFT SHIFT is Present. Laboratory - Chemistry and C hemistry - challengeOrdered By: Ellen Conway on 04-07-2023 CO2 [Moles/Vol] 26.0 mmol/L 21.0-32.0 [facility] Urea nitrogen/Creatinine [Mass ratio] 21.6 mg/mg 10-20 [facility] Laboratory - Hematology and Cell countsOrdered By: Ellen Conway on 04-07-2023 MCH (RBC) [Entitic mass] 26.9 pg 27.0-32.0 [facility] MCHC (RBC) [Mass/Vol] 31.8 g/dL 32-36 [facility] Nucleated RBC/100 WBC (Bld) [Ratio] 0 % 0-5 [facility] Platelet mean volume (Bld) [Entitic vol] 10.9 fL 6.2-12.0 [facility] Platelets (Bld) [#/Vol] 205 10*3/uL 150-450 [facility] No Panel InformationOrdered By: Ellen Conway on 04-07-2023 Estimated Creatinine Clearance Calc 71.55 ml/min [facility] Estimated GFR (MDRD) Amer 83 mL/min >60 [facility] Comment on above: GFR Calc Estimated GFR (MDRD) Non-Af Amer 69 mL/min >60 [facility] Comment on above: Non- GFR Calc RBC Auto (Bld) [#/Vol]Ordere d By: Ellen Conway on 04-07-2023 RBC (Bld) [#/Vol] 4.69 10*6/uL 4.2-5.4 [facility] Serum or plasma calcium fernando urement (mass/volume)Ordered By: Ellen Conway on 04-07-2023 Calcium [Mass/Vol] 8.6 mg/dL 8.5-10.1 [facility] Serum or plasma creatinine m easurement (mass/volume)Ordered By: Ellen Conway on 04-07-2023 Creatinine [Mass/Vol] 0.88 mg/dL 0.55-1.02 [facility] Comment on above: The validity of the calculated GFR & GFRAA in patients over 70 years has not been determined. Clinical correlation is essential. Serum or plasma urea nitroge n measurement (mass/volume)Ordered By: Ellen Conway on 04-07-2023 Urea nitrogen [Mass/Vol] 19 mg/dL 7-18 [facility] Thin prep Papanicolaou smear with manual screeningOrdered By: Ellen Conway on 04-07-2023 Thin prep Papanicolaou smear with manual screening 167 mg/dL 74-106 [facility] Comment on above: MANAGEMENT OF PATIEN T CARE PER NURSING PROTOCOL Thin prep Papanicolaou smear with manual screening 5 5-15 [facility] Basophil percentageOrdered B y: Myla John on 04-06-2023 Bilirubin [Mass/Vol] 0.50 mg/dL 0.20-1.00 [facility] Comment on above: For patients on eltr ombopag therapy, use of Dimension [place] TBIL is not recommended. Cholesterol [Mass/Vol] 152 mg/dL <200 [facility] Comment on above: <200 mg/dL Desirable 200-240 mg/dL Borderline >240 mg/dL High Risk Protein [Mass/Vol] 5.9 g/dL 6.4-8.2 [facility] Triglyceride [Mass/Vol] 83 mg/dL <199 [facility] Comment on above: The drugs N-Acetylcy steine and Metamizole may falsely depress this assay.Serum Triglycerides Reference Interval Normal <150 mg/dL Borderline high 150 - 199 mg/dL High 200 - 499 mg/dL Very High > or = 500 mg/dL Laboratory - Chemistry and C hemistry - challengeOrdered By: Myla Lopez on 04-06-2023 Albumin/Globulin [Mass ratio] 0.7 {ratio} 0.9-2.4 [facility] ALP [Catalytic activity/Vol] 83 U/L 45-117 [facility] ALT [Catalytic activity/Vol] 13 U/L 13-56 [facility] Cholesterol in HDL [Mass/Vol] 43 mg/dL >40 [facility] Comment on above: The drugs N-Acetylcy steine and Metamizole may falsely depress this assay. Reference Range HDL <40 mg/dL Low HDL Cholesterol HDL >or= 60 mg/dL High HDL Cholesterol Cholesterol in LDL [Mass/Vol] 92 mg/dL 0-130 [facility] Globulin (S) [Mass/Vol] 3.4 g/dL 2.2-4.2 [facility] Magnesium [Mass/Vol] 2.0 mg/dL 1.6-2.6 [facility] No Panel InformationOrdered By: Myla Lopez on 04-06-2023 Troponin I High Sensitivity 2521 pg/mL 3.0-54.0 [facility] Comment on above: Critical Result(s) C alled at: 03:56:15 04/06/2023 by: Itz Kirk. to Mary Jane BORJA PCU. Results read back by same. Please Note: New Test Units and Gender Specific Reference Ranges. For more information see Policy Stat Procedure [place] High Sensitivity Troponin (TNIH) and attachments. VLDL Cholesterol 17 mg/dL 5-40 [facility] Thin prep Papanicolaou smear with manual screeningOrdered By: Myla Lopez on 04-06-2023 Thin prep Papanicolaou smear with manual screening 2.5 g/dL 3.2-5.0 [facility] Thin prep Papanicolaou smear with manual screening 22 U/L 15-37 [facility] Absolute lymphocyte countOrd ered By: Kaden Gardiner on 04-05-2023 Lymphocytes Auto (Unsp spec) [#/Vol] 2.32 10*3/uL 0.83-4.51 [facility] Automated lymphocyte count a s percentage of total leukocytesOrdered By: Kaden Gardiner on 04-05-2023 Lymphocytes/100 WBC Auto (Unsp spec) 26.0 % 19-41 [facility] Basophil percentageOrdered B y: Kaden Gardiner on 04-05-2023 Basophils/100 WBC (Bld) 1.0 % 0-1 [facility] Chloride [Moles/Vol] 109 mmol/L 98-107 [facility] Eosinophils/100 WBC (Bld) 3.6 % 0-5 [facility] Glucose [Mass/Vol] 273 mg/dL 74-106 [facility] Comment on above: Glucose result great er than or equal to 200 mg/dLsuggests DIABETES MELLITUS per A.D.A. criteria. Hemoglobin (Bld) [Mass/Vol] 12.4 g/dL 12.0-15.0 [facility] Monocytes/100 WBC (Bld) 6.3 % 0-10 [facility] Neutrophils (Bld) [#/Vol] 5.6 10*3/uL 2.0-7.7 [facility] Neutrophils/100 WBC (Bld) 62.9 % 47-70 [facility] Potassium [Moles/Vol] 3.6 mmol/L 3.5-5.1 [facility] Sodium [Moles/Vol] 140 mmol/L 136-145 [facility] WBC (Bld) [#/Vol] 8.9 10*3/uL 4.4-11.0 [facility] Determination of erythrocyte mean corpuscular volume (MCV)Ordered By: Kaden Gardiner on 04-05-2023 MCV (RBC) [Entitic vol] 84.5 fL 81-99 [facility] Erythrocyte distribution wid th ratioOrdered By: Kaden Gardiner on 04-05-2023 Erythrocyte distribution width (RBC) [Ratio] 15.9 % 11.6-14.6 [facility] Erythrocyte distribution wid th standard deviationOrdered By: Kaden Gardiner on 04-05-2023 Erythrocyte distribution width (RBC) [Entitic vol] 48.5 fL 35.1-43.9 [facility] Hematocrit Auto (Bld) [Volum e fraction]Ordered By: Kaden Gardiner on 04-05-2023 Hematocrit (Bld) [Volume fraction] 39.2 % 37-47 [facility] Immature granulocytes/100 WB C Auto (Bld)Ordered By: Kaden Gardiner on 04-05-2023 Immature granulocytes/100 WBC (Bld) 0.200 % 0.0-0.9 [facility] Comment on above: IG% - Immature Granu locytes (promyelocytes, myelocytes and metamyelocytes) > 1% indicates that a LEFT SHIFT is Present. Laboratory - Chemistry and C hemistry - challengeOrdered By: Myla Lopez on 04-05-2023 Magnesium [Mass/Vol] 1.4 mg/dL 1.6-2.6 [facility] Laboratory - Chemistry and C hemistry - challengeOrdered By: Kaden Gardiner on 04-05-2023 CO2 [Moles/Vol] 26.0 mmol/L 21.0-32.0 [facility] Urea nitrogen/Creatinine [Mass ratio] 23.1 mg/mg 10-20 [facility] Laboratory - Hematology and Cell countsOrdered By: Kaden Gardiner on 04-05-2023 MCH (RBC) [Entitic mass] 26.7 pg 27.0-32.0 [facility] MCHC (RBC) [Mass/Vol] 31.6 g/dL 32-36 [facility] Nucleated RBC/100 WBC (Bld) [Ratio] 0 % 0-5 [facility] Platelet mean volume (Bld) [Entitic vol] 11.8 fL 6.2-12.0 [facility] Platelets (Bld) [#/Vol] 226 10*3/uL 150-450 [facility] No Panel InformationOrdered By: Kaden Gardiner on 04-05-2023 Troponin I High Sensitivity 1492 pg/mL 3.0-54.0 [facility] Comment on above: Critical Result(s) C alled at: 00:22:13 04/06/2023 by: Itz Kirk. King Guardado RN PCU. Results read back by same. Please Note: New Test Units and Gender Specific Reference Ranges. For more information see Policy Stat Procedure [place] High Sensitivity Troponin (TNIH) and attachments. Estimated Creatinine Clearance Calc 73.41 ml/min [facility] Estimated GFR (MDRD) Amer 85 mL/min >60 [facility] Comment on above: GFR Calc Estimated GFR (MDRD) Non-Af Amer 70 mL/min >60 [facility] Comment on above: Non- GFR Calc RBC Auto (Bld) [#/Vol]Ordere d By: Kaden Gardiner on 04-05-2023 RBC (Bld) [#/Vol] 4.64 10*6/uL 4.2-5.4 [facility] Serum or plasma calcium fernando urement (mass/volume)Ordered By: Kaden Gardiner on 04-05-2023 Calcium [Mass/Vol] 8.8 mg/dL 8.5-10.1 [facility] Serum or plasma creatinine m easurement (mass/volume)Ordered By: Kaden Gardiner on 04-05-2023 Creatinine [Mass/Vol] 0.87 mg/dL 0.55-1.02 [facility] Comment on above: The validity of the calculated GFR & GFRAA in patients over 70 years has not been determined. Clinical correlation is essential. Serum or plasma urea nitroge n measurement (mass/volume)Ordered By: Kaden Gardiner on 04-05-2023 Urea nitrogen [Mass/Vol] 20 mg/dL 7-18 [facility] Thin prep Papanicolaou smear with manual screeningOrdered By: Kaden Gardiner on 04-05-2023 Thin prep Papanicolaou smear with manual screening 5 5-15 [facility] Absolute lymphocyte countOrd ered By: Yesica Narvaez on 08-13-2022 Lymphocytes Auto (Unsp spec) [#/Vol] 2.99 10*3/uL 0.83-4.51 [facility] Basophil percentageOrdered B y: Yesica Narvaez on 08-13-2022 Basophils/100 WBC (Bld) 0.7 % 0-1 [facility] Bilirubin [Mass/Vol] 0.90 mg/dL 0.20-1.00 [facility] Comment on above: For patients on eltr ombopag therapy, use of Dimension [place] TBIL is not recommended. Chloride [Moles/Vol] 108 mmol/L 98-107 [facility] Cholesterol [Mass/Vol] 213 mg/dL <200 [facility] Comment on above: <200 mg/dL Desirable 200-240 mg/dL Borderline >240 mg/dL High Risk Eosinophils/100 WBC (Bld) 4.3 % 0-5 [facility] Glucose [Mass/Vol] 191 mg/dL 74-106 [facility] Comment on above: Fasting Glucose resu lt greater than or equal to 126 mg/dL suggests DIABETES MELLITUS per A.D.A. criteria. Neutrophils (Bld) [#/Vol] 3.5 10*3/uL 2.0-7.7 [facility] Neutrophils/100 WBC (Bld) 46.4 % 47-70 [facility] Potassium [Moles/Vol] 3.8 mmol/L 3.5-5.1 [facility] Protein [Mass/Vol] 7.3 g/dL 6.4-8.2 [facility] Sodium [Moles/Vol] 141 mmol/L 136-145 [facility] Triglyceride [Mass/Vol] 180 mg/dL <199 [facility] Comment on above: The drugs N-Acetylcy steine and Metamizole may falsely depress this assay.Serum Triglycerides Reference Interval Normal <150 mg/dL Borderline high 150 - 199 mg/dL High 200 - 499 mg/dL Very High > or = 500 mg/dL WBC (Bld) [#/Vol] 7.5 10*3/uL 4.4-11.0 [facility] Blood erythrocytes count (nu mber/volume)Ordered By: Yesica Narvaez on 08-13-2022 RBC (Bld) [#/Vol] 4.23 10*6/uL 4.2-5.4 [facility] Blood hemoglobin measurement (mass/volume)Ordered By: Yesica Narvaez on 08-13-2022 Hemoglobin (Bld) [Mass/Vol] 12.3 g/dL 12.0-15.0 [facility] Blood lymphocytes/100 leukoc ytesOrdered By: Yesica Narvaez on 08-13-2022 Lymphocytes/100 WBC (Bld) 40.1 % 19-41 [facility] Blood monocytes/100 leukocyt esOrdered By: Yesica Narvaez on 08-13-2022 Monocytes/100 WBC (Bld) 7.8 % 0-10 [facility] Blood platelet mean volumeOr dered By: Yesica Narvaez on 08-13-2022 Platelet mean volume (Bld) [Entitic vol] 11.3 fL 6.2-12.0 [facility] Determination of erythrocyte mean corpuscular volume (MCV)Ordered By: Yesica Narvaez on 08-13-2022 MCV (RBC) [Entitic vol] 90.3 fL 81-99 [facility] Direct bilirubinOrdered By: Yesica Narvaez on 08-13-2022 Bilirubin.direct [Mass/Vol] 0.20 mg/dL 0.00-0.30 [facility] Hematocrit Auto (Bld) [Volum e fraction]Ordered By: Yesica Narvaez on 08-13-2022 Hematocrit (Bld) [Volume fraction] 38.2 % 37-47 [facility] Laboratory - Chemistry and C hemistry - challengeOrdered By: Yesica Narvaez on 08-13-2022 ALP [Catalytic activity/Vol] 75 U/L 45-117 [facility] ALT [Catalytic activity/Vol] 21 U/L 13-56 [facility] CO2 [Moles/Vol] 27.0 mmol/L 21.0-32.0 [facility] Globulin (S) [Mass/Vol] 4.1 g/dL 2.2-4.2 [facility] Urea nitrogen/Creatinine [Mass ratio] 23.9 mg/mg 10-20 [facility] Laboratory - Hematology and Cell countsOrdered By: Yesica Narvaez on 08-13-2022 Erythrocyte distribution width (RBC) [Entitic vol] 46.3 fL 35.1-43.9 [facility] Erythrocyte distribution width (RBC) [Ratio] 14.1 % 11.6-14.6 [facility] Immature granulocytes/100 WBC (Bld) 0.700 % 0.0-0.9 [facility] Comment on above: IG% - Immature Granu locytes (promyelocytes, myelocytes and metamyelocytes) > 1% indicates that a LEFT SHIFT is Present. MCH (RBC) [Entitic mass] 29.1 pg 27.0-32.0 [facility] Nucleated RBC/100 WBC (Bld) [Ratio] 0 % 0-5 [facility] MCHC Auto (RBC) [Mass/Vol]Or dered By: Yesica Narvaez on 08-13-2022 MCHC (RBC) [Mass/Vol] 32.2 g/dL 32-36 [facility] No Panel InformationOrdered By: Yesica Narvaez on 08-13-2022 Estimated GFR (MDRD) Amer 75 mL/min >60 [facility] Comment on above: GFR Calc Estimated GFR (MDRD) Non-Af Amer 62 mL/min >60 [facility] Comment on above: Non- GFR Calc Urine Microalbumin/Creatini ne Ratio 1436.2 mg/g CRE <30 [facility] Platelets bldOrdered By: Sandor Narvaez on 08-13-2022 Platelets (Bld) [#/Vol] 188 10*3/uL 150-450 [facility] Serum or plasma albumin fernando urement (mass/volume)Ordered By: Yesica Narvaez on 08-13-2022 Albumin [Mass/Vol] 3.2 g/dL 3.2-5.0 [facility] Serum or plasma albumin/glob ulin mass ratioOrdered By: Yesica Narvaez on 08-13-2022 Albumin/Globulin [Mass ratio] 0.8 {ratio} 0.9-2.4 [facility] Serum or plasma calcium fernando urement (mass/volume)Ordered By: Yesica Narvaez on 08-13-2022 Calcium [Mass/Vol] 9.0 mg/dL 8.5-10.1 [facility] Serum or plasma cholesterol in HDL measurement (mass/volume)Ordered By: Yesica Narvaez on 08-13-2022 Cholesterol in HDL [Mass/Vol] 38 mg/dL >40 [facility] Comment on above: The drugs N-Acetylcy steine and Metamizole may falsely depress this assay. Reference Range HDL <40 mg/dL Low HDL Cholesterol HDL >or= 60 mg/dL High HDL Cholesterol Serum or plasma cholesterol in VLDL measurement (mass/volume)Ordered By: Yesica Narvaez on 08-13-2022 Cholesterol in VLDL [Mass/Vol] 36 mg/dL 5-40 [facility] Serum or plasma creatinine m easurement (mass/volume)Ordered By: Yesica Narvaez on 08-13-2022 Creatinine [Mass/Vol] 0.96 mg/dL 0.55-1.02 [facility] Comment on above: The validity of the calculated GFR & GFRAA in patients over 70 years has not been determined. Clinical correlation is essential. Serum or plasma low density lipoprotein (LDL) cholesterol measurement (mass/volume)Ordered By: Yesica Narvaez on 08-13-2022 Cholesterol in LDL [Mass/Vol] 139 mg/dL 0-130 [facility] Serum or plasma urea nitroge n measurement (mass/volume)Ordered By: Yesica Narvaez on 08-13-2022 Urea nitrogen [Mass/Vol] 23 mg/dL 7-18 [facility] Thin prep Papanicolaou smear with manual screeningOrdered By: Yesica Narvaez on 08-13-2022 Thin prep Papanicolaou smear with manual screening 14 U/L 15-37 [facility] Thin prep Papanicolaou smear with manual screening 6 5-15 [facility] Thin prep Papanicolaou smear with manual screening 2140.0 mg/L NO RANGE EST. [facility] Urine creatinine measurement (mass/volume)Ordered By: Yesica Narvaez on 08-13-2022 Creatinine (U) [Mass/Vol] 149.00 mg/dL NO RANGE EST. [facility] Whole blood hemoglobin A1c/t otal hemoglobin ratio (mass fraction)Ordered By: Yesica Narvaez on 08-13-2022 HbA1c (Bld) [Mass fraction] 7.3 % 3.8-5.6 [facility] Comment on above: Normal < 5.7 % Predi abetic 5.7 - 6.4 % Diabetic >or= 6.5 % Please note range changes. Absolute lymphocyte counton 07-26-2021 Lymphocytes Auto (Unsp spec) [#/Vol] 2.91 10*3/uL 0.83-4.51 [facility] Work Phone: Basophil percentageon 2021 Basophils/100 WBC (Bld) 0.8 % 0-1 [facility] Work Phone: Bilirubin [Mass/Vol] 0.70 mg/dL 0.20-1.00 [facility] Work Phone: Comment on above: For patients on eltr ombopag therapy, use of Dimension [place] TBIL is not recommended. Chloride [Moles/Vol] 105 mmol/L 98-107 [facility] Work Phone: Cholesterol [Mass/Vol] 169 mg/dL <200 [facility] Work Phone: Comment on above: <200 mg/dL Desirable 200-240 mg/dL Borderline >240 mg/dL High Risk Eosinophils/100 WBC (Bld) 3.8 % 0-5 [facility] Work Phone: Glucose [Mass/Vol] 53 mg/dL 74-106 [facility] Work Phone: Neutrophils (Bld) [#/Vol] 4.1 10*3/uL 2.0-7.7 [facility] Work Phone: Neutrophils/100 WBC (Bld) 51.7 % 47-70 [facility] Work Phone: Potassium [Moles/Vol] 3.7 mmol/L 3.5-5.1 [facility] Work Phone: Protein [Mass/Vol] 7.4 g/dL 6.4-8.2 [facility] Work Phone: Sodium [Moles/Vol] 140 mmol/L 136-145 [facility] Work Phone: Triglyceride [Mass/Vol] 210 mg/dL <199 [facility] Work Phone: Comment on above: The drugs N-Acetylcy steine and Metamizole may falsely depress this assay.Serum Triglycerides Reference Interval Normal <150 mg/dL Borderline high 150 - 199 mg/dL High 200 - 499 mg/dL Very High > or = 500 mg/dL WBC (Bld) [#/Vol] 7.9 10*3/uL 4.4-11.0 [facility] Work Phone: Blood erythrocytes count (nu mber/volume)on 07-26-2021 RBC (Bld) [#/Vol] 4.89 10*6/uL 4.2-5.4 [facility] Work Phone: Blood hemoglobin measurement (mass/volume)on 07-26-2021 Hemoglobin (Bld) [Mass/Vol] 13.5 g/dL 12.0-15.0 [facility] Work Phone: Blood lymphocytes/100 leukoc yteson 07-26-2021 Lymphocytes/100 WBC (Bld) 36.7 % 19-41 [facility] Work Phone: Blood monocytes/100 leukocyt eson 07-26-2021 Monocytes/100 WBC (Bld) 6.4 % 0-10 [facility] Work Phone: Blood platelet mean volumeon 07-26-2021 Platelet mean volume (Bld) [Entitic vol] 11.0 fL 6.2-12.0 [facility] Work Phone: Determination of erythrocyte mean corpuscular volume (MCV)on 07-26-2021 MCV (RBC) [Entitic vol] 85.5 fL 81-99 [facility] Work Phone: Hematocrit Auto (Bld) [Volum e fraction]on 07-26-2021 Hematocrit (Bld) [Volume fraction] 41.8 % 37-47 [facility] Work Phone: Laboratory - Chemistry and C hemistry - challengeon 07-26-2021 ALP [Catalytic activity/Vol] 79 U/L 45-117 [facility] Work Phone: ALT [Catalytic activity/Vol] 17 U/L 13-56 [facility] Work Phone: CO2 [Moles/Vol] 32.0 mmol/L 21.0-32.0 [facility] Work Phone: Globulin (S) [Mass/Vol] 4.3 g/dL 2.2-4.2 [facility] Work Phone: Urea nitrogen/Creatinine [Mass ratio] 19.6 mg/mg 10-20 [facility] Work Phone: Laboratory - Hematology and Cell countson 07-26-2021 Erythrocyte distribution width (RBC) [Entitic vol] 42.0 fL 35.1-43.9 [facility] Work Phone: Erythrocyte distribution width (RBC) [Ratio] 13.4 % 11.6-14.6 [facility] Work Phone: Immature granulocytes/100 WBC (Bld) 0.600 % 0.0-0.9 [facility] Work Phone: Comment on above: IG% - Immature Granu locytes (promyelocytes, myelocytes and metamyelocytes) > 1% indicates that a LEFT SHIFT is Present. MCH (RBC) [Entitic mass] 27.6 pg 27.0-32.0 [facility] Work Phone: Nucleated RBC/100 WBC (Bld) [Ratio] 0 % 0-5 [facility] Work Phone: MCHC Auto (RBC) [Mass/Vol]on 07-26-2021 MCHC (RBC) [Mass/Vol] 32.3 g/dL 32-36 [facility] Work Phone: No Panel Informationon 07-26 Estimated GFR (MDRD) Amer 107 mL/min >60 [facility] Work Phone: Comment on above: GFR Calc Estimated GFR (MDRD) Non-Af Amer 88 mL/min >60 [facility] Work Phone: Comment on above: Non- GFR Calc Platelets bldon 07-26-2021 Platelets (Bld) [#/Vol] 217 10*3/uL 150-450 [facility] Work Phone: Serum or plasma albumin fernando urement (mass/volume)on 07-26-2021 Albumin [Mass/Vol] 3.1 g/dL 3.2-5.0 [facility] Work Phone: Serum or plasma albumin/glob ulin mass ratioon 07-26-2021 Albumin/Globulin [Mass ratio] 0.7 {ratio} 0.9-2.4 [facility] Work Phone: Serum or plasma calcium fernando urement (mass/volume)on 07-26-2021 Calcium [Mass/Vol] 9.4 mg/dL 8.5-10.1 [facility] Work Phone: Serum or plasma cholesterol in HDL measurement (mass/volume)on 07-26-2021 Cholesterol in HDL [Mass/Vol] 41 mg/dL >40 [facility] Work Phone: Comment on above: The drugs N-Acetylcy steine and Metamizole may falsely depress this assay. Reference Range HDL <40 mg/dL Low HDL Cholesterol HDL >or= 60 mg/dL High HDL Cholesterol Serum or plasma cholesterol in VLDL measurement (mass/volume)on 07-26-2021 Cholesterol in VLDL [Mass/Vol] 42 mg/dL 5-40 [facility] Work Phone: Serum or plasma creatinine m easurement (mass/volume)on 07-26-2021 Creatinine [Mass/Vol] 0.71 mg/dL 0.55-1.02 [facility] Work Phone: Comment on above: The validity of the calculated GFR & GFRAA in patients over 70 years has not been determined. Clinical correlation is essential. Serum or plasma low density lipoprotein (LDL) cholesterol measurement (mass/volume)on 07-26-2021 Cholesterol in LDL [Mass/Vol] 86 mg/dL 0-130 [facility] Work Phone: Serum or plasma urea nitroge n measurement (mass/volume)on 07-26-2021 Urea nitrogen [Mass/Vol] 14 mg/dL 7-18 [facility] Work Phone: Thin prep Papanicolaou smear with manual screeningon 07-26-2021 Thin prep Papanicolaou smear with manual screening 18 U/L 15-37 [facility] Work Phone: Thin prep Papanicolaou smear with manual screening 3 5-15 [facility] Work Phone: Office Visit: Ron 11-18-19 17 Fall risk assessment No Invalid Interpretation Code [facility] Work Phone: [phone] Protein mass conc Done Invalid Interpretation Code [facility] Work Phone: [phone] 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 Left ventricular Ejection fraction 60 % Invalid Interpretation Code [facility] Work Phone: Office Visiton 05-06-2016 Protein mass conc Done Invalid Interpretation Code [facility] Work Phone: Lab Report: CBC W/Diff, Auto - EPLAB Onlyon 03-03-2016 Basophils/100 WBC Auto (Bld) 1.1 % High 0-1 [employer] Work Phone: Eosinophils/100 WBC Auto (Bld) 3.2 % Invalid Interpretation Code 0-5 [facility] Work Phone: Hematocrit Auto Volume Fraction (Bld) 46.7 % Invalid Interpretation Code 37-47 [facility] Work Phone: Hemoglobin mass conc (Bld) 14.9 g/dL Invalid Interpretation Code 12.0-15.0 [facility] Work Phone: [phone] Lymphocytes/100 WBC Auto (Bld) 34.3 % Invalid Interpretation Code 19-41 [facility] Work Phone: [phone] MCH Auto Entitic mass (RBC) 28.3 pg Invalid Interpretation Code 27.0-32.0 [facility] Work Phone: [phone] MCHC Auto mass conc (RBC) 32.0 g/dL Invalid Interpretation Code 32-36 [facility] Work Phone: [phone] MCV Auto Entitic volume (RBC) 88.3 fL Invalid Interpretation Code 81-99 [facility] Work Phone: [phone] Monocytes/100 WBC Auto (Bld) 5.7 % Invalid Interpretation Code 0-10 [facility] Work Phone: Neutrophils/100 WBC Auto (Bld) 55.6 % Invalid Interpretation Code 47-70 [facility] Work Phone: Platelets Auto #/vol (Bld) 112 10*3/mm3 Low 150-450 [facility] Work Phone: RBC Auto #/vol (Bld) 5.28 10*6/uL Invalid Interpretation Code 4.2-5.4 [facility] Work Phone: WBC Auto #/vol (Bld) 6.7 10*3/uL Invalid Interpretation Code 4.4-11.0 [facility] Work Phone: Erythrocyte distribution width Auto Ratio (RBC) 13.0 % Invalid Interpretation Code 11.6-14.6 [email or web address] Work Phone: [phone] Lymphocytes Auto #/vol (Bld) 2.31 X10 3/UL Invalid Interpretation Code 0.83-4.51 [facility] Work Phone: [phone] Neutrophils Auto #/vol (Bld) 3.7 X10 3/UL Invalid Interpretation Code 2.0-7.7 [facility] Work Phone: [phone] Platelet mean volume Conrado-Pedro Entitic volume (Bld) 11.1 fL Invalid Interpretation Code 6.2-12.0 [facility] Work Phone: [phone] Lab Report: Comprehensive Wy tabolic Profilon 03-03-2016 Albumin mass conc 3.2 g/dL Low 3.4-5.0 [facility] Work Phone: [phone] Albumin/Globulin mass ratio 0.8 {ratio} Low 0.9-2.4 [facility] Work Phone: [phone] ALP enzyme act/vol (Bld) 84 U/L Invalid Interpretation Code 45-117 [facility] Work Phone: [phone] ALT enzyme act/vol 49 U/L Invalid Interpretation Code 12-78 [facility] Work Phone: [phone] Anion gap 4 molar conc 11 Invalid Interpretation Code 5-15 [facility] Work Phone: [phone] AST enzyme act/vol 32 U/L Invalid Interpretation Code 15-37 [facility] Work Phone: [phone] Bilirubin mass conc 1.30 mg/dL High 0.20-1.00 [facility] Work Phone: [phone] Calcium mass conc 8.9 mg/dL Invalid Interpretation Code 8.5-10.1 [facility] Work Phone: [phone] Chloride molar conc 100 mmol/L Invalid Interpretation Code 98-107 [facility] Work Phone: [phone] CO2 ppres (BldV) 26.0 mmol/L Invalid Interpretation Code 21.0-32.0 [facility] Work Phone: [phone] Creatinine mass conc 0.92 mg/dL Invalid Interpretation Code 0.55-1.02 [facility] Work Phone: [phone] EST GFR - AA 81 mL/min Invalid Interpretation Code >60 [facility] Work Phone: [phone] GFR/1.73 sq M predicted among non-blacks MDRD vol rate/area (S/P/Bld) 67 mL/min/{1.73_m2} Invalid Interpretation Code >60 [facility] Work Phone: [phone] Globulin Calculated mass conc (S) 3.8 g/dL High 2.3-3.5 [facility] Work Phone: [phone] Glucose mass conc 459 mg/dL Critically high 70-110 [facility] Work Phone: [phone] Potassium molar conc 3.9 mmol/L Invalid Interpretation Code 3.5-5.1 [facility] Work Phone: [phone] Protein mass conc 7.0 g/dL Invalid Interpretation Code 6.4-8.2 [facility] [employer] [facility] Work Phone: [phone] Sodium molar conc 137 mmol/L Invalid Interpretation Code 136-145 [facility] [employer] Work Phone: [phone] Urea nitrogen mass conc 17 mg/dL Invalid Interpretation Code 7-18 [facility] Work Phone: [phone] Urea nitrogen/Creatinine mass ratio 18.6 RATIO Invalid Interpretation Code 10-20 [facility] Work Phone: [phone] Lab Report: LDHon 03-03-2016 LDH 210 U/L Invalid Interpretation Code 84-246 [facility] Work Phone: [phone] Lab Report: Magnesiumon 02-13 Magnesium mass conc 1.6 mg/dL Low 1.8-2.4 [facility] Work Phone: [phone] Lab Report: Uric Acidon 02-13 Urate mass conc 4.7 mg/dL Invalid Interpretation Code 2.6-6.0 [facility] [employer] Work Phone: [phone] Office Visit: 6 month f/u- P HQ9 Completedon 03-03-2016 Adult depression screening assessment Adult depression screening assessment Invalid Interpretation Code [facility] [employer] [facility] Work Phone: [phone] PHQ-9 quick depression assessment panel [Reported.PHQ] Adult depression screening assessment Invalid Interpretation Code [employer] Work Phone: [phone] Tobacco smoking status NHIS Never Invalid Interpretation Code [employer] Work Phone: [phone] Tobacco smoking status NHIS Never smoker Invalid Interpretation Code [employer] Work Phone: [phone] Office Visit: DM IIon 2015 Hemoglobin A1c/Hemoglobin.total mass fraction (Bld) 14.4 % Invalid Interpretation Code [employer] Work Phone: [phone] Rx Refill: eRx Request for L OSARTAN POTASSIUM 25 MG TABon 09-16-2015 [id number]`LOSARTAN POTASSIUM 25 MG TAB```30 Tablet`30`TAKE 1 TABLET BY MOUTH EVERY DAY``7`0`12/15/2014`No date sent`[facility]*`[id number]``LOSARTAN POTASSIUM 25 MG TAB Quantity: 30 Tablet Instructions: TAKE 1 TABLET BY MOUTH EVERY DAY [employer] Work Phone: [phone] Lab Report: CBC W/Diff, Auto matedon 05-06-2015 Erythrocyte distribution width Auto Ratio (RBC) 45.1 fL High 35.1-43.9 [employer] Work Phone: [phone] Immature granulocytes #/vol (Bld) 0.300 % Invalid Interpretation Code 0.0-0.9 [employer] Work Phone: [phone] Lab Report: (P) Urinalysis, Completeon 12-06-2014 Albumin Ql (U) Negative Invalid Interpretation Code Negative [employer] Work Phone: [phone] Bilirubin Ql (U) Negative Invalid Interpretation Code Negative [employer] Work Phone: [phone] Color Nom (U) Yellow Invalid Interpretation Code Yellow [employer] Work Phone: [phone] Glucose Ql (U) 1000 mg/dL High Normal [employer] Work Phone: [phone] Ketones mass conc (U) Negative Invalid Interpretation Code Negative [employer] Work Phone: [phone] Leukocyte esterase Test strip Ql (U) 500 High Negative [employer] Work Phone: [phone] OCCULT BLOOD-UR 150 High Negative [employer] Work Phone: [phone] pH Test strip (U) 6.0 [pH] Invalid Interpretation Code 5.0 - 8.0 [employer] Work Phone: [phone] Specific gravity Refractometry Relative Density (U) 1.010 Invalid Interpretation Code 1.002-1.030 [employer] Work Phone: [phone] Lab Report: Urinalysis, Comp leteon 12-06-2014 Epithelial cells LM.HPF #/area (Urine sed) 0-5 SEEN Invalid Interpretation Code 5-10 [employer] Work Phone: [phone] Mucus LM Ql (Urine sed) 0 SEEN Invalid Interpretation Code [employer] Work Phone: [phone] RBC LM.HPF #/vol (Urine sed) 0 SEEN Invalid Interpretation Code 0-5 [employer] Work Phone: [phone] WBC 50-100 SEEN Invalid Interpretation Code 0-5 [employer] Work Phone: [phone] Lab Report: CBC W/Diff, Auto matedon 11-21-2014 Absolute Neut 5.1 X10 3/UL Invalid Interpretation Code 2.0-7.7 [employer] Work Phone: [phone] Lab Report: Lipid Profileon 10-07-2014 Cholesterol in HDL mass conc 29 mg/dL Low [employer] Work Phone: [phone] Cholesterol mass conc 161 mg/dL Invalid Interpretation Code 200 [employer] Work Phone: [phone] Lipoprotein.pre-beta mass conc 89 mg/dL High 5-40 [employer] Work Phone: [phone] Triglyceride mass conc 445 mg/dL High [employer] Work Phone: [phone] Cholesterol in LDL mass conc Test not performed mg/dL Invalid Interpretation Code 0-130 [employer] Work Phone: [phone] Lab Report: Liver Profileon 10-07-2014 Bilirubin.direct mass conc 0.19 mg/dL Invalid Interpretation Code 0.00-0.30 [employer] Work Phone: [phone] Office Visiton 10-07-2014 cardiac risk group C Invalid Interpretation Code [employer] Work Phone: [phone] General cardiovascular disease 10Y risk [#] [place] N/A Invalid Interpretation Code [employer] Phone: [phone] Replaced Document: D-Dimer Q uantitative (DVT/PE)on 10-07-2014 D-DIMER QUANT 0.30 FEU/UG/M Invalid Interpretation Code 0.27-0.49 [employer] Phone: [phone] Replaced Document: [employer] E CG Observationson 10-07-2014 EKG QRS axis 8 deg Invalid Interpretation Code [employer] Phone: [phone] Interpretation Sinus Rhythm -Nonspe cific ST depression + Nonspecific T-abnormality -Nondiagnostic. 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 store receiving specialist 09-22-2014 Albumin/Globulin mass ratio 0.9 {ratio} Invalid Interpretation Code [employer] Phone: [phone] basophils as percent of blood leukocytes, manual count 0.4 % Invalid Interpretation Code [employer] Phone: [phone] eosinophils as percent of blood leukocytes, manual count 1.0 % Invalid Interpretation Code [employer] Phone: [phone] Globulin Calculated mass conc (S) 3.4 g/dL Invalid Interpretation Code [employer] Phone: [phone] neutrophils, band form as percent of blood leukocytes, manual count 69.8 % Invalid Interpretation Code [employer] Phone: [phone] Thyrotropin Qn 0.40 u[iU]/mL Invalid Interpretation Code [employer] Work Phone: Lab Report: LDHon 08-25-2014 LDH enzyme act/vol 178 U/L Invalid Interpretation Code 87-241 [employer] Work Phone: Office Visiton 08-13-2014 General categories Cyto stain Interp (Cervical or vaginal smear or scraping) Normal Invalid Interpretation Code [employer] Work Phone: MG Breast screening Normal Bilateral Invalid Interpretation Code [employer] Work Phone: Lab Report: CBC W/Diff, Auto matedon 05-29-2014 Lymphocytes Auto #/vol (Bld) 1.64 X10 3/UL Invalid Interpretation Code 0.83-4.51 [employer] Work Phone: Lab Report: PTon 11-06-2013 INR Coag RelTime (PPP) 1.0 {INR} Normal [employer] Work Phone: PTP 13.0 SECONDS Normal 11.7-14.9 [employer] Work Phone: Coumadin Management: Coumadi n Managementon 07-24-2013 Prothrombin time (PT) Coag time (PPP) 15.3 s Invalid Interpretation Code [employer] Work Phone: Clinical Lists Update: Prelo store receiving specialist 05-13-2013 Prothrombin time (PT) Coag time (PPP) 24.8 s Invalid Interpretation Code [employer] Phone: Office Visiton 05-14-2012 Protein mass conc Colonoscopy (procedure) Invali d Interpretation Code [employer] Work Phone: Otheron 07-18-2008 CONVERTED CLINICAL HISTORY 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 SPECIMEN: ARTERY [facility] CONVERTED GROSS DESCRIPTION GROSS DESCRIPTION: Pseudoaneurysm contents The specimen is received in a container labeled pseudoaneurysm contents. Received are portions of lobulated, york-red clotted blood measuring 5 x 5 x 3 cm in aggregate. A car sales representative sample is submitted in a single cassettes. EDS/SMS/lrs MICROSCOPIC DESCRIPTION: Slides reviewed. EDS/gpl [facility] CONVERTED ORDERING PROVIDER Ordering Provider: ISRRAEL SANTOS [facility] Vital Signs Date Time Vital Sign Value Performing Clinician Facility 10-08-2024 08:44-0400 Body temperature 98.7 [degF] Dr. Fara Bernal DO Work Phone: [facility] 10-08-2024 08:44-0400 Body weight 87.[address] aFra Bernal DO Work Phone: [facility] 10-08-2024 08:44-0400 Diastolic blood pressure 76 mm[Hg] Dr. Fara Bernal DO Work Phone: [facility] 10-08-2024 08:44-0400 Heart rate 91 /min Dr. Fara Bernal DO Work Phone: [facility] 10-08-2024 08:44-0400 Respiratory rate 18 /min Dr. Fara Bernal DO Work Phone: [facility] 10-08-2024 08:44-0400 SaO2% (BldA) [Mass fraction] 97 % Dr. Fara Bernal DO Work Phone: [facility] 10-08-2024 08:44-0400 Systolic blood pressure 127 mm[Hg] Dr. Fara Bernal DO Work Phone: [facility] 05-23-2024 08:55-0400 Body temperature 97.7 [degF] Dr. Fara Bernal DO Work Phone: [facility] 05-23-2024 08:55-0400 Body weight 88.[address] Fara Bernal DO Work Phone: [facility] 05-23-2024 08:55-0400 Diastolic blood pressure 83 mm[Hg] Dr. Fara Bernal DO Work Phone: [facility] 05-23-2024 08:55-0400 Heart rate 75 /min Dr. Fara Bernal DO Work Phone: [facility] 05-23-2024 08:55-0400 Respiratory rate 16 /min Dr. Fara Bernal DO Work Phone: [facility] 05-23-2024 08:55-0400 SaO2% (BldA) [Mass fraction] 98 % Dr. Fara Bernal DO Work Phone: [facility] 05-23-2024 08:55-0400 Systolic blood pressure 143 mm[Hg] Dr. Fara Bernal DO Work Phone: [facility] 05-21-2024 10:17-0400 Body temperature 98 [degF] Dr. Fara Bernal DO Work Phone: [facility] 05-21-2024 10:17-0400 Diastolic blood pressure 80 mm[Hg] Dr. Fara Bernal DO Work Phone: [facility] 05-21-2024 10:17-0400 Heart rate 101 /min Dr. Fara Bernal DO Work Phone: [facility] 05-21-2024 10:17-0400 SaO2% (BldA) [Mass fraction] 97 % Dr. Fara Bernal DO Work Phone: [facility] 05-21-2024 10:17-0400 Systolic blood pressure 124 mm[Hg] Dr. Fara Bernal DO Work Phone: [facility] 04-19-2024 09:14-0500 Diastolic blood pressure 80 mm[Hg] Dr. Fara Bernal DO Work Phone: [facility] 04-19-2024 09:14-0500 Systolic blood pressure 150 mm[Hg] Dr. Fara Bernal DO Work Phone: [facility] 04-19-2024 07:39-0500 Body height 162.[address] Fara Bernal DO Work Phone: [facility] 04-19-2024 07:39-0500 Body mass index (BMI) [Ratio] 33.7 kg/m2 Dr. Fara Bernal DO Work Phone: [facility] 04-19-2024 07:39-0500 Body weight 89.[address] Fara Bernal DO Work Phone: [facility] 04-19-2024 07:39-0500 Heart rate 77 /min Dr. Fara Bernal DO Work Phone: [facility] 04-19-2024 07:39-0500 Respiratory rate 18 /min Dr. Fara Bernal DO Work Phone: [facility] 04-19-2024 07:39-0500 SaO2% (BldA) [Mass fraction] 99 % Dr. Fara Bernal DO Work Phone: [facility] 06-05-2023 13:22-0400 Body height 162.[address] Fara Bernal Work Phone: [facility] 06-05-2023 13:22-0400 Body mass index (BMI) [Ratio] 35.2 kg/m2 Dr. Fara Bernal Work Phone: [facility] 06-05-2023 13:22-0400 Body weight 92.[address] Fara Bernal Work Phone: [facility] 05-09-2023 11:30-0400 Body height 162.[address] Fara Bernal Work Phone: [facility] 05-09-2023 11:30-0400 Body mass index (BMI) [Ratio] 35.2 kg/m2 Dr. Fara Bernal Work Phone: [facility] 05-09-2023 11:30-0400 Body weight 92.[address] Fara Bernal Work Phone: [facility] 05-09-2023 11:30-0400 Diastolic blood pressure 97 mm[Hg] Dr. Fara Bernal Work Phone: [facility] 05-09-2023 11:30-0400 Heart rate 75 /min Dr. Fara Bernal Work Phone: [facility] 05-09-2023 11:30-0400 Respiratory rate 20 /min Dr. Fara Bernal Work Phone: [facility] 05-09-2023 11:30-0400 SaO2% (BldA) [Mass fraction] 95 % Dr. Fara Bernal Work Phone: [facility] 05-09-2023 11:30-0400 Systolic blood pressure 157 mm[Hg] Dr. Fara Bernal Work Phone: [facility] 05-05-2023 14:17-0400 Body temperature 98.3 [degF] Dr. Fara Bernal Work Phone: [facility] 05-05-2023 14:17-0400 Diastolic blood pressure 82 mm[Hg] Dr. Fara Bernal Work Phone: [facility] 05-05-2023 14:17-0400 Heart rate 102 /min Dr. Fara Bernal Work Phone: [facility] 05-05-2023 14:17-0400 Respiratory rate 17 /min Dr. Fara Bernal Work Phone: [facility] 05-05-2023 14:17-0400 SaO2% (BldA) [Mass fraction] 98 % Dr. Fara Bernal Work Phone: [facility] 05-05-2023 14:17-0400 Systolic blood pressure 144 mm[Hg] Dr. Fara Bernal Work Phone: [facility] 04-07-2023 11:07-0500 Body temperature 97.6 [degF] Dr. Fara Bernal Work Phone: [facility] 04-07-2023 11:07-0500 Diastolic blood pressure 78 mm[Hg] Dr. Fara Bernal Work Phone: [facility] 04-07-2023 11:07-0500 Heart rate 80 /min Dr. Fara Bernal Work Phone: [facility] 04-07-2023 11:07-0500 Respiratory rate 16 /min Dr. Fara Bernal Work Phone: [facility] 04-07-2023 11:07-0500 SaO2% (BldA) [Mass fraction] 98 % Dr. Fara Bernal Work Phone: [facility] 04-07-2023 11:07-0500 Systolic blood pressure 154 mm[Hg] Dr. Fara Bernal Work Phone: [facility] 04-07-2023 03:21-0500 Body mass index (BMI) [Ratio] 35.3 kg/m2 Dr. Fara Bernal Work Phone: [facility] 04-07-2023 03:21-0500 Body weight 93.[address] Fara Bernal Work Phone: [facility] 04-06-2023 00:30-0500 Body height 162.[address] Fara Bernal Work Phone: [facility] 04-06-2023 00:23-0500 Body temperature 97.6 [degF] [facility] 04-06-2023 00:23-0500 Diastolic blood pressure 95 mm[Hg] [facility] 04-06-2023 00:23-0500 Heart rate 68 /min [facility] 04-06-2023 00:23-0500 Respiratory rate 16 /min [facility] 04-06-2023 00:23-0500 SaO2% (BldA) [Mass fraction] 96 % [facility] 04-06-2023 00:23-0500 Systolic blood pressure 185 mm[Hg] [facility] 04-05-2023 20:33-0500 Body height 162.56 cm [facility] 04-05-2023 20:33-0500 Body mass index (BMI) [Ratio] 36.3 kg/m2 [facility] 04-05-2023 20:33-0500 Body weight 95.9 kg [facility] 03-18-2023 16:01-0500 Diastolic blood pressure 60 mm[Hg] [facility] 03-18-2023 16:01-0500 Heart rate 70 /min [facility] 03-18-2023 16:01-0500 Respiratory rate 16 /min [facility] 03-18-2023 16:01-0500 SaO2% (BldA) [Mass fraction] 98 % [facility] 03-18-2023 16:01-0500 Systolic blood pressure 153 mm[Hg] [facility] 03-18-2023 13:57-0500 Body mass index (BMI) [Ratio] 33.3 kg/m2 [facility] 03-18-2023 13:57-0500 Body temperature 98.4 [degF] [facility] 03-18-2023 13:57-0500 Body weight 87.99 kg [facility] 04-21-2022 10:11-0500 Diastolic blood pressure 66 mm[Hg] Dr. Fara Bernal Work Phone: [facility] 04-21-2022 10:11-0500 Heart rate 91 /min Dr. Fara Bernal Work Phone: [facility] 04-21-2022 10:11-0500 SaO2% (BldA) [Mass fraction] 98 % Dr. Fara Bernal Work Phone: [facility] 04-21-2022 10:11-0500 Systolic blood pressure 126 mm[Hg] Dr. Fara Bernal Work Phone: [facility] 01-20-2022 10:37-0500 Body height 162.[address] Fara Bernal Work Phone: [facility] 01-20-2022 10:37-0500 Body mass index (BMI) [Ratio] 34 kg/m2 Dr. Fara Bernal Work Phone: [facility] 01-20-2022 10:37-0500 Body temperature 98.6 [degF] Dr. Fara Bernal Work Phone: [facility] 01-20-2022 10:37-0500 Body weight 89.[address] Fara Bernal Work Phone: [facility] 01-20-2022 10:37-0500 Diastolic blood pressure 88 mm[Hg] Dr. Fara Bernal Work Phone: [facility] 01-20-2022 10:37-0500 Heart rate 90 /min Dr. Fara Bernal Work Phone: [facility] 01-20-2022 10:37-0500 Respiratory rate 18 /min Dr. Fara Bernal Work Phone: [facility] 01-20-2022 10:37-0500 SaO2% (BldA) [Mass fraction] 98 % Dr. Fara Bernal Work Phone: [facility] 01-20-2022 10:37-0500 Systolic blood pressure 176 mm[Hg] Dr. Fara Bernal Work Phone: [facility] 10-19-2021 09:36-0400 Diastolic blood pressure 78 mm[Hg] Dr. Fara Bernal Work Phone: [facility] Work Phone: 10-19-2021 09:36-0400 Systolic blood pressure 138 mm[Hg] Dr. Fara Bernal Work Phone: [facility] Work Phone: 10-19-2021 08:58-0400 Body height 162.[address] Fara Bernal Work Phone: [facility] Work Phone: 10-19-2021 08:58-0400 Body mass index (BMI) [Ratio] 33.3 kg/m2 Dr. Fara Bernal Work Phone: [facility] Work Phone: 10-19-2021 08:58-0400 Body weight 87.[address] Fara Bernal Work Phone: [facility] Work Phone: 10-19-2021 08:58-0400 Heart rate 94 /min Dr. Fara Bernal Work Phone: [facility] Work Phone: 10-19-2021 08:58-0400 Respiratory rate 16 /min Dr. Fara Bernal Work Phone: [facility] Work Phone: 09-16-2021 11:31-0400 Diastolic blood pressure 69 mm[Hg] Dr. Fara Bernal Work Phone: [facility] Work Phone: 09-16-2021 11:31-0400 Heart rate 64 /min Dr. Fara Bernal Work Phone: [facility] Work Phone: 09-16-2021 11:31-0400 Respiratory rate 15 /min Dr. Fara Bernal Work Phone: [facility] Work Phone: 09-16-2021 11:31-0400 SaO2% (BldA) [Mass fraction] 98 % Dr. Fara Bernal Work Phone: [facility] Work Phone: 09-16-2021 11:31-0400 Systolic blood pressure 124 mm[Hg] Dr. Fara Bernal Work Phone: [facility] Work Phone: 09-16-2021 10:13-0400 Body height 162.[address] Fara Bernal Work Phone: [facility] Work Phone: 09-16-2021 10:13-0400 Body mass index (BMI) [Ratio] 33.1 kg/m2 Dr. Fara Bernal Work Phone: [facility] Work Phone: 09-16-2021 10:13-0400 Body temperature 98 [degF] Dr. Fara Bernal Work Phone: [facility] Work Phone: 09-16-2021 10:13-0400 Body weight 87.[address] Fara Bernal Work Phone: [facility] Work Phone: 07-26-2021 09:33-0400 Diastolic blood pressure 92 mm[Hg] Dr. Fara Bernal Work Phone: [facility] Work Phone: 07-26-2021 09:33-0400 Systolic blood pressure 156 mm[Hg] Dr. Fara Bernal Work Phone: [facility] Work Phone: 07-26-2021 09:08-0400 Body height 162.[address] Fara Bernal Work Phone: [facility] Work Phone: 07-26-2021 09:08-0400 Body mass index (BMI) [Ratio] 33.7 kg/m2 Dr. Fara Bernal Work Phone: [facility] Work Phone: 07-26-2021 09:08-0400 Body weight 89.[address] Fara Bernal Work Phone: [facility] Work Phone: 07-26-2021 09:08-0400 Heart rate 83 /min Dr. Fara Bernal Work Phone: [facility] Work Phone: 07-26-2021 09:08-0400 Respiratory rate 18 /min Dr. Fara Bernal Work Phone: [facility] Work Phone: 07-26-2021 09:08-0400 SaO2% (BldA) [Mass fraction] 94 % Dr. Fara Bernal Work Phone: [facility] Work Phone: 11-17-2016 15:35-0400 BMI (Body Mass Index) 34.67 kg/m2 [facility] Work Phone: 11-17-2016 15:35-0400 BP Diastolic 76 mm[Hg] Merarynelsy Taryn [facility] Work Phone: 11-17-2016 15:35-0400 BP Systolic 122 mm[Hg] [facility] Work Phone: 11-17-2016 15:35-0400 Height 162.56 cm [facility] Work Phone: 11-17-2016 15:35-0400 Pulse (Heart Rate) 70 /min [facility] Work Phone: 11-17-2016 15:35-0400 Weight 91.63 kg [facility] Work Phone: 05-06-2016 09:46-0400 BMI (Body Mass Index) 32.27 kg/m2 [facility] Work Phone: 05-06-2016 09:46-0400 BP Diastolic 70 mm[Hg] Gail Covington RN [facility] Work Phone: 05-06-2016 09:46-0400 BP Systolic 124 mm[Hg] Gail Covington RN [facility] Work Phone: 05-06-2016 09:46-0400 Height 162.56 cm Gail Covington RN [facility] [employer] [facility] Work Phone: 05-06-2016 09:46-0400 Pulse (Heart Rate) 80 /min Gail Covington RN [facility] Work Phone: 05-06-2016 09:46-0400 Respiratory Rate 18 /min Gail Covington RN [facility] Work Phone: 05-06-2016 09:46-0400 Weight 85.28 kg Gail Covington RN [facility] Work Phone: 03-03-2016 08:18-0500 Body Temperature 97.6 [degF] Gail Covington RN [facility] Work Phone: 03-03-2016 08:18-0500 Body Temperature 97.59 [degF] Gail Covington RN [facility] Work Phone: 03-03-2016 08:18-0500 BSA (Body Surface Area) 1.92 m2 Gail Covington RN [facility] Work Phone: 03-03-2016 08:18-0500 Height 162.56 cm Gail Covington RN [facility] Work Phone: 03-03-2016 08:18-0500 Weight 87.27 kg Gail Covington RN [facility] Work Phone: 10-26-2014 22:30-0400 Body surface area Derived from formula 56.59 mL/min Gail Covington RN [facility] Work Phone: 10-07-2014 08:57-0400 Heart rate 82 /min Gail Covington RN [facility] Work Phone: Encounters Encounter Date Encounter Type Care Provider Facility Start: 10-08-2024 End: 10-08-2024 Patient encounter procedure Jackie ROSSI -[facility] Work Phone: Start: 10-08-2024 End: 10-08-[address] Fara Bernal DO Work Phone: -[facility] Start: 06-07-2024 ambulatory Galdino Figueroa Facility:[facility] [place] Start: 06-07-2024 End: 06-07-2024 ambulatory Jackie Larson Facility:[facility] Start: 05-23-2024 End: 05-23-2024 Patient encounter procedure Jackie ROSSI -[facility] Work Phone: Start: 05-23-2024 End: 05-23-2024 ambulatory Yesica ROSSI Facility:[facility] Start: 05-21-2024 End: 05-21-2024 Patient encounter procedure Alonso ROS[facility] -[facility] Work Phone: Start: 05-21-2024 End: 05-21-[address] Fara Bernal DO Work Phone: [facility] Work Phone: Start: 05-21-2024 End: 05-21-2024 ambulatory Alonso ROSSI Facility:[facility] Start: 04-19-2024 End: 04-19-2024 Patient encounter procedure Yesica ROSSI -[facility] Work Phone: Start: 04-19-2024 End: 04-19-2024 ambulatory Yesica ROSSI Facility:[facility] Start: 01-19-2024 End: 01-19-2024 ambulatory Fara Bernal Facility:[facility] Start: 01-18-2024 End: 02-09-2024 ambulatory Alonso ROSSI Facility:[facility] Start: 01-04-2024 End: 01-13-2024 ambulatory Alonso ROSSI Facility:[facility] Start: 12-07-2023 End: 12-14-2023 Evaluation and management of inpatient Pavel Trimble Facility:[facility] Start: 12-07-2023 ambulatory Fara Bernal [facility] Start: 12-07-2023 End: 12-14-2023 ambulatory Alonso ROSSI Facility:[facility] Start: 12-05-2023 ambulatory Alonso ROSSI Facil ity:[facility] Start: 11-30-2023 ambulatory Alonso ROSSI Facil [facility]y:[facility] Start: 11-27-2023 ambulatory Fara Malboris [facility] Start: 11-23-2023 ambulatory Fara Malys [facility] Start: 11-21-2023 ambulatory Fara Malys [facility] Start: 11-20-2023 ambulatory Fara Malys [facility] Start: 11-16-2023 ambulatory Fara Malys [facility] Start: 11-14-2023 ambulatory Fara Malys [facility] Start: 11-13-2023 End: 11-13-2023 ambulatory Alonso ROSSI Facility:[facility] Start: 11-09-2023 ambulatory Fara Malys [facility] Start: 11-07-2023 ambulatory Fara Malys [facility] Start: 11-06-2023 ambulatory Fara Malys [facility] Start: 11-02-2023 ambulatory Alonso ROSSI Facil ity:[facility] Start: 10-30-2023 ambulatory Fara Malys [facility] Start: 10-19-2023 ambulatory Alonso ROSSI Facil ity:[facility] Start: 10-19-2023 End: 10-19-2023 ambulatory Alonso ROSSI Facility:[facility] Start: 06-20-2023 End: 06-20-[address] Fara Bernal Work Phone: [facility] Work Phone: Start: 06-20-[address] Fara Bernal Work Phone: [facility] Work Phone: Start: 06-17-2023 End: 06-17-[address] Fara Bernal Work Phone: [facility] Work Phone: Start: 06-17-2023 End: 06-17-[address] Fara Bernal Work Phone: [facility] Work Phone: Start: 06-05-2023 End: 06-05-2023 Patient encounter procedure Dr. Fraa Bernal Work Phone: [facility] Work Phone: Start: 05-09-2023 End: 05-09-[address] Fara Bernal Work Phone: [facility] Work Phone: Start: 05-05-2023 End: 05-05-[address] Fara Bernal Work Phone: [facility] Work Phone: Start: 05-05-2023 End: 05-05-[address] Fara Bernal Work Phone: [facility] Work Phone: Start: 04-14-2023 End: 04-14-[address] Fara Bernal Work Phone: [facility] Work Phone: Start: 04-14-2023 End: 04-14-[address] Fara Bernal Work Phone: [facility] Start: 04-11-2023 Non-patient / Non-visit Dr. Michell Bernal Work Phone: [facility] Start: 04-07-2023 Non-patient / Non-visit Dr. Michell Bernal Work Phone: [facility] Work Phone: Start: 04-07-2023 Non-patient / Non-visit Dr. Michell Bernal Work Phone: [facility] Start: 04-06-2023 Non-patient / Non-visit Dr. Michell Bernal Work Phone: [facility] Work Phone: Start: 04-06-2023 Non-patient / Non-visit Dr. Michell Bernal Work Phone: [facility] Start: 04-05-2023 End: 04-07-2023 Evaluation and management of inpatient [facility] Work Phone: Start: 03-18-2023 End: 03-18-2023 Emergency department patient visit [facility] Work Phone: Start: 08-13-2022 End: 08-13-[address] Fara Bernal Work Phone: [facility] Work Phone: Start: 08-13-2022 End: 08-13-[address] Fara Bernal Work Phone: [facility] Work Phone: Start: 04-21-2022 End: 04-21-[address] Fara Bernal Work Phone: [facility] Work Phone: Start: 02-18-2022 Non-patient / Non-visit Dr. Michell Bernal Work Phone: [facility] Start: 02-18-2022 End: 02-18-[address] Fara Bernal Work Phone: [facility] Work Phone: Start: 02-18-2022 End: 02-18-[address] Fara Bernal Work Phone: [facility] Start: 01-20-2022 End: 01-20-[address] Fara Bernal Work Phone: [facility] Start: 12-29-2021 Non-patient / Non-visit Dr. Michell Bernal Work Phone: [facility] Start: 12-29-2021 End: 12-29-[address] Fara Bernal Work Phone: [facility] Work Phone: Start: 12-29-2021 End: 12-29-[address] [facility] Start: 10-19-2021 End: 10-19-[address] Fara Bernal Work Phone: [facility] Start: 09-16-2021 End: 09-16-2021 Emergency department patient visit Dr. Fara Bernal Work Phone: [facility] Start: 07-26-2021 End: 07-26-[address] Fara Bernal Work Phone: [facility] Start: 07-16-2008 End: 07-16-2008 Patient encounter procedure Isrrael Santos Work Phone: [facility] Start: 07-16-2008 Results Only Isrrael Santos Work Phone: [facility] Procedures Date Procedure Procedure Detail Performing Clinician Start: 05-21-2024 Plain X-ray of finger D jaciel Bernal DO Work Phone: Start: 06-17-2023 MRI of joint of lowe r extremity Dr. Fara Bernal Work Phone: Start: 05-05-2023 Plain X-ray of shoulder Dr. Fara Bernal Work Phone: Start: 04-05-2023 Plain chest X-ray Start: 03-18-2023 Plain X-ray of shoulder Start: 11-17-2016 End: 11-17-2016 Dietary management education, guidance, and counseling Steve Centeno Start: 11-17-2016 End: 11-17-2016 [employer] MARKETING SPECIALIST Darien Wilcox [employer] Work Phone: Start: 11-17-2016 End: 11-17-2016 Follow Up Appt 6 months Darien Wilcox NP Work Phone: Start: 05-06-2016 End: 05-06-2016 Follow Up Appt 6 months Kirill Palmer Start: 05-06-2016 End: 05-06-2016 SONA Pritchard MD Start: 05-06-2016 End: 05-06-2016 Dietary management education, guidance, and counseling Gail Covington RN Start: 03-03-2016 End: 03-03-2016 *CMP Complete Metabolic Panel Roy Kirill Alam Work Phone: Start: 03-03-2016 End: 03-03-2016 Lactate dehydrogenase [Enzymatic activity/volume] in Serum or Plasma Roy M Alam Work Phone: Start: 03-03-2016 End: 03-03-2016 Magnesium [Mass/volume] in Serum or Plasma Roy M Alam Work Phone: Start: 03-03-2016 End: 03-03-2016 Urate [Mass/volume] in Serum or Plasma Roy M Alam Work Phone: Start: 10-23-2015 End: 10-23-2015 Follow Up Appt 6 months Kirill Palmer Start: 10-23-2015 End: 10-23-2015 SONA Pritchard MD Start: 09-18-2015 End: 09-18-2015 Hemoglobin glycosylated a1c Baudilio ocampo DO Work Phone: Start: 09-03-2015 End: 09-10-2015 *CMP Complete Metabolic Panel Roy Kirill Alam Work Phone: Start: 09-03-2015 End: 09-10-2015 Lactate dehydrogenase [Enzymatic activity/volume] in Serum or Plasma Roy M Alam Work Phone: Start: 09-03-2015 End: 09-10-2015 Urate [Mass/volume] in Serum or Plasma Roy M Alam Work Phone: Start: 04-27-2015 End: 05-06-2015 *CBC with Differential Roy M Alam Work Phone: Start: 04-27-2015 End: 05-06-2015 *CMP Complete Metabolic Panel Kirill Roland Work Phone: Start: 04-27-2015 End: 05-06-2015 Lactate dehydrogenase [Enzymatic activity/volume] in Serum or Plasma Kirill Roland Work Phone: Start: 04-27-2015 End: 05-06-2015 Urate [Mass/volume] in Serum or Plasma Kirill Roland Work Phone: Start: 04-14-2015 End: 04-14-2015 CRM MARKETING SPECIALIST Yesica Narvaez PA-C Work Phone: Start: 04-14-2015 End: 04-14-2015 Follow Up Appt 6 months Yesica Narvaez PA-C Work Phone: Start: 02-16-2015 End: 03-02-2015 *CBC with Differential Bebe R Nav [employer] Work Phone: Start: 02-16-2015 End: 03-02-2015 *CMP Complete Metabolic Panel Bebe R Nav [employer] Work Phone: Start: 02-16-2015 End: 03-02-2015 Lactate dehydrogenase [Enzymatic activity/volume] in Serum or Plasma Bebe R Nav [employer] Work Phone: Start: 02-16-2015 End: 03-02-2015 Urate [Mass/volume] in Serum or Plasma Bebe R Nav [employer] Work Phone: Start: 12-09-2014 End: 04-15-2016 Magnesium [Mass/volume] in Serum or Plasma Yesica Narvaez PA-C Work Phone: Start: 12-06-2014 End: 12-06-2014 Urinalysis Gail Covington RN Start: 10-07-2014 End: 10-07-2014 *BMP Sheng Pritchard MD Start: 10-07-2014 End: 10-07-2014 *Hepatic Function Panel Yesica Narvaez PA-C Work Phone: Start: 10-07-2014 [...] End: 10-10-2014 Nuclear stress test -exercise Sheng Pritchard MD Start: 10-07-2014 End: 10-08-2014 Pedal pulse taking Sheng Pritchard MD Start: 05-26-2014 End: 05-29-2014 *CBC with Differential Roy Kirill Asuncion Work Phone: Start: 05-26-2014 End: 05-29-2014 *CMP Complete Metabolic Panel Kirill Roland Work Phone: Start: 05-26-2014 End: 05-29-2014 Lactate dehydrogenase [Enzymatic activity/volume] in Serum or Plasma Kirill Kirill Asuncion Work Phone: Start: 05-26-2014 End: 05-29-2014 Urate [Mass/volume] in Serum or Plasma Kirill Roland Work Phone: Start: 02-17-2014 End: 05-29-2014 *CBC with Differential Kirill Roland Work Phone: Start: 02-17-2014 End: 05-29-2014 Lactate dehydrogenase [Enzymatic activity/volume] in Serum or Plasma Kirill Roland Work Phone: Start: 02-13-2014 End: 04-15-2016 *Hepatic Function Panel Yesica Narvaez PA-C Work Phone: Start: 02-13-2014 End: 04-15-2016 Lipid 1996 panel - Serum or Plasma Yesica Narvaez PA-C Work Phone: Start: 01-07-2014 End: 05-29-2014 *CBC with Differential Brennon hardy Work Phone: Start: 12-06-2013 End: 12-06-2013 Follow Up Appt 6 months Kirill Palmer Start: 12-06-2013 End: 12-06-2013 MMM Sheng Pritchard MD Start: 12-06-2013 End: 12-11-2013 Venous doppler Shegn Pritchard MD Start: 09-06-2013 End: 09-06-2013 CRM MARKETING SPECIALIST Yesica Narvaez PA-C Work Phone: Start: 09-06-2013 End: 05-21-2014 Ct thorax w/o & w/contrast material Yesica Narvaez PA-C Work Phone: Start: 09-06-2013 End: 09-06-2013 Follow Up Appt 3 months Yesica Narvaez PA-C Work Phone: Start: 09-06-2013 End: 05-21-2014 Nuclear stress test -exercise Yesica Narvaez PA-C Work Phone: Start: 06-26-2013 End: 09-02-2013 *Hepatic Function Panel Kirill Palmer Start: 06-26-2013 End: 06-26-2013 CRM MARKETING SPECIALIST Sheng Pritchard MD Start: 06-26-2013 End: 06-26-2013 [...] Serum or Plasma Sheng Pritchard MD Start: 04-10-2013 History of coronary artery bypass grafting H/O coronary artery bypass surgery Dr. Fara Bernal Work Phone: Comment on above: CABG x 2 BAUM to LAD and SVG to lateral CX 04/10/2013 Start: 07-16-2008 CONVERTED SURGICAL PATHOLOGY Isrrael Santos Work Phone: Plan of Treatment Date Care Activity Detail Author Start: 04-19-2024 Patient referral [facility] Work Phone: Start: 06-05-2023 Patient referral [facility] Work Phone: Start: 04-14-2023 Blood chemistry [facility] Start: 04-13-2023 Blood chemistry [facility] Start: 04-12-2023 Blood chemistry [facility] Start: 04-11-2023 Patient referral [facility] Work Phone: Start: 04-11-2023 Blood chemistry [facility] Start: 04-10-2023 Blood chemistry [facility] Start: 04-09-2023 Blood chemistry [facility] Start: 04-08-2023 Blood chemistry [facility] Start: 04-07-2023 Patient discharge [facility] Start: 04-06-2023 Notification of physician [facility] Start: 04-06-2023 Patient education [facility] Start: 04-06-2023 Provision of activity privileges [facility] Start: 04-06-2023 Pulse taking [facility] Start: 04-06-2023 Taking patient vital signs [facility] Start: 04-06-2023 Wound care [facility] Start: 04-06-2023 [facility] Start: 04-06-2023 Catheterization of vein [facility] Start: 04-06-2023 Medication not administered [facility] Start: 04-06-2023 Notification of physician [facility] Start: 04-06-2023 [facility] Start: 04-06-2023 Application of intermittent pneumatic compression device [facility] Start: 04-06-2023 Assessment of risk of venous thromboembolism [facility] Start: 04-06-2023 Care regimes management [facility] Start: 04-06-2023 Inhalation therapy procedure [facility] Start: 04-06-2023 Insertion of catheter into peripheral vein [facility] Start: 04-06-2023 Introduction of urinary catheter [facility] Start: 04-06-2023 Measuring intake and output [facility] Start: 04-06-2023 Notification of physician [facility] Start: 04-06-2023 Providing care according to standard [facility] Start: 04-06-2023 Provision of activity privileges [facility] Start: 04-06-2023 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 [facility] Start: 04-06-2023 Referral to service [facility] Start: 04-06-2023 Tobacco use cessation education [facility] Start: 04-06-2023 [facility] Start: 04-05-2023 Verification routine [facility] Start: 04-05-2023 Electrocardiographic procedure [facility] Start: 04-05-2023 Admission procedure [facility] Start: 04-05-2023 Hospital admission, emergency, from emergency room, medical nature [facility] Start: 04-05-2023 [facility] Start: 03-18-2023 [facility] Start: 09-16-2021 Incision & drainage abscess simple/single DRAINAGE OF SKIN ABSCESS [facility] Work Phone: Start: 10-15-2019 Influenza vaccination INFLUENZA (#1) [facility] Start: 04-06-2018 LIPID SCREEN LIPID SCREEN [facility] Start: 05-23-2017 End: 05-23-2017 Appointment Appointment [facility] Work Phone: Start: 11-17-2016 End: 11-17-2016 Appointment Appointment [facility] Work Phone: Start: 11-17-2016 End: 11-17-2016 *Hepatic Function Panel *Hepatic Function Panel [facility] Work Phone: Start: 11-17-2016 End: 11-17-2016 CRM MARKETING SPECIALIST CRM MARKETING SPECIALIST [facility] Work Phone: Start: 11-17-2016 End: 11-17-2016 Follow Up Appt 6 months Follow Up Appt 6 months [facility] Work Phone: Start: 11-17-2016 End: 11-17-2016 Lipid 1996 panel *Lipid Profile CC PCP [facility] Work Phone: Start: 08-30-2016 End: 03-03-2016 *CBC w/Diff - oncology ONLY *CBC w/Diff - oncology ONLY [facility] Work Phone: Start: 08-30-2016 End: 03-03-2016 *CMP Complete Metabolic Panel *CMP Complete Metabolic Panel [facility] Work Phone: Start: 08-30-2016 End: 03-03-2016 LDH enzyme act/vol *LDH -LDH (Lactate Dehydrogenase) [facility] Work Phone: Start: 05-06-2016 End: 05-06-2016 Follow Up Appt 6 months Follow Up Appt 6 months [facility] Work Phone: Start: 05-06-2016 End: 05-06-2016 MMM MMM [facility] Work Phone: Start: 04-18-2016 DIABETES SCREEN DIABETES SCREEN [facility] Start: 03-03-2016 End: 09-10-2015 *CBC with Differential *CBC with Differential [facility] Work Phone: Start: 03-03-2016 End: 03-03-2016 *CMP Complete Metabolic Panel *CMP Complete Metabolic Panel [facility] Work Phone: Start: 03-03-2016 End: 03-03-2016 LDH enzyme act/vol *LDH -LDH (Lactate Dehydrogenase) [facility] Work Phone: Start: 03-03-2016 End: 03-03-2016 Magnesium mass conc *Magnesium [facility] Work Phone: Start: 03-03-2016 End: 03-03-2016 Urate mass conc *Uric Acid Blood [facility] Work Phone: Start: 10-23-2015 End: 10-23-2015 Follow Up Appt 6 months Follow Up Appt 6 months [facility] Work Phone: Start: 10-23-2015 End: 10-23-2015 MMM MMM [facility] Work Phone: Start: 09-03-2015 End: 05-13-2015 *CBC with Differential *CBC with Differential [facility] Work Phone: Start: 09-03-2015 End: 09-10-2015 *CMP Complete Metabolic Panel *CMP Complete Metabolic Panel [facility] Work Phone: Start: 09-03-2015 End: 09-10-2015 LDH enzyme act/vol *LDH -LDH (Lactate Dehydrogenase) [facility] Work Phone: Start: 09-03-2015 End: 09-10-2015 Urate mass conc *Uric Acid Blood [facility] Work Phone: Start: 04-27-2015 End: 05-06-2015 *CBC with Differential *CBC with Differential [facility] Work Phone: Start: 04-27-2015 End: 05-06-2015 *CMP Complete Metabolic Panel *CMP Complete Metabolic Panel [facility] Work Phone: Start: 04-27-2015 End: 05-06-2015 LDH enzyme act/vol *LDH -LDH (Lactate Dehydrogenase) [facility] Work Phone: Start: 04-27-2015 End: 05-06-2015 Urate mass conc *Uric Acid Blood [facility] Work Phone: Start: 04-14-2015 End: 04-14-2015 CRM MARKETING SPECIALIST CRM MARKETING SPECIALIST [facility] Work Phone: Start: 04-14-2015 End: 04-14-2015 Follow Up Appt 6 months Follow Up Appt 6 months [facility] Work Phone: Start: 02-16-2015 End: 03-02-2015 *CBC with Differential *CBC with Differential [facility] Work Phone: Start: 02-16-2015 End: 03-02-2015 *CMP Complete Metabolic Panel *CMP Complete Metabolic Panel [facility] Work Phone: Start: 02-16-2015 End: 03-02-2015 LDH enzyme act/vol *LDH -LDH (Lactate Dehydrogenase) [facility] Work Phone: Start: 02-16-2015 End: 03-02-2015 Urate mass conc *Uric Acid Blood [facility] Work Phone: Start: 12-17-2014 End: 12-17-2014 Radex foot complete minimum 3 views X-Ray, Foot [facility] Work Phone: Start: 12-15-2014 End: 12-15-2014 *CMP Complete Metabolic Panel *CMP Complete Metabolic Panel [facility] Work Phone: Start: 12-15-2014 End: 12-15-2014 *Microalbumin, Creatine Ratio, rand urine *Microalbumin, Creatine Ratio, rand urine [facility] Work Phone: Start: 12-15-2014 End: 12-15-2014 Hemoglobin A1c/Hemoglobin.total mass fraction (Bld) *HgA1C [facility] Work Phone: Start: 12-15-2014 End: 12-16-2014 Swallowing funcj w/cineradiograpy/vidradiog Cookie Swallow [facility] Work Phone: Start: 12-15-2014 End: 12-15-2014 Us guidance needle placement img s&i Ultrasonic guidance for needle placement biopsy, aspiration, imaging [facility] Work Phone: Start: 12-09-2014 End: 04-15-2016 Magnesium mass conc *Magnesium [facility] Work Phone: Start: 12-02-2014 End: 10-07-2014 *Hepatic Function Panel *Hepatic Function Panel [facility] Work Phone: Start: 12-02-2014 End: 10-07-2014 Lipid 1996 panel *Lipid Profile CC PCP [facility] Work Phone: Start: 11-24-2014 End: 10-23-2014 *CBC [...] Phone: Start: 10-07-2014 End: 10-07-2014 *BMP *BMP [facility] Work Phone: Start: 10-07-2014 End: 10-07-2014 CBC W Auto Differential panel - Blood *CBC without Diff [facility] Work Phone: Start: 10-07-2014 End: 10-07-2014 Ecg routine ecg w/least 12 lds w/i&r EKG (In office) [facility] Work Phone: Start: 10-07-2014 End: 10-07-2014 Fibrin D-dimer FEU IA mass conc (Bld) *DDIMQ - Fibrin Degrd Ultrsens Qual/Semiquan [facility] Work Phone: Start: 10-07-2014 End: 10-07-2014 Follow Up Appt 6 months Follow Up Appt 6 months [facility] Work Phone: Start: 10-07-2014 End: 10-07-2014 MMM MMM [facility] Work Phone: Start: 10-07-2014 End: 10-07-2014 Nuclear stress test -exercise Nuclear stress test -exercise [facility] Work Phone: Start: 08-25-2014 End: 08-25-2014 *CBC with Differential *CBC with Differential [facility] Work Phone: Start: 08-25-2014 End: 08-25-2014 *CMP Complete Metabolic Panel *CMP Complete Metabolic Panel [facility] Work Phone: Start: 08-25-2014 End: 08-25-2014 LDH enzyme act/vol *LDH -LDH (Lactate Dehydrogenase) [facility] Work Phone: Start: 08-25-2014 End: 08-25-2014 Urate mass conc *Uric Acid Blood [facility] Work Phone: Start: 05-26-2014 End: 05-29-2014 *CBC with Differential *CBC with Differential [facility] Work Phone: Start: 05-26-2014 End: 05-29-2014 *CMP Complete Metabolic Panel *CMP Complete Metabolic Panel [facility] Work Phone: Start: 05-26-2014 End: 05-29-2014 LDH enzyme act/vol *LDH -LDH (Lactate Dehydrogenase) [facility] Work Phone: Start: 05-26-2014 End: 05-29-2014 Urate mass conc *Uric Acid Blood [facility] Work Phone: Start: 05-08-2014 End: 05-19-2014 Arthrocentesis aspir&/inj small jt/bursa w/o us Injection, Joint (small) [facility] Work Phone: Start: 05-08-2014 End: 05-08-2014 Hemoglobin A1c/Hemoglobin.total mass fraction (Bld) HGB A1C (Office) [facility] Work Phone: Start: 05-08-2014 End: 05-19-2014 Triamcinolone acet inj NOS Kenalog per 10 mg [facility] Work Phone: Start: 02-17-2014 End: 05-29-2014 *CBC with Differential *CBC with Differential [facility] Work Phone: Start: 02-17-2014 End: 05-29-2014 LDH enzyme act/vol *LDH -LDH (Lactate Dehydrogenase) [facility] Work Phone: Start: 02-13-2014 End: 04-15-2016 *Hepatic Function Panel *Hepatic Function Panel [facility] Work Phone: Start: 02-13-2014 End: 04-15-2016 Lipid 1996 panel *Lipid Profile CC PCP [facility] Work Phone: Start: 01-07-2014 End: 05-29-2014 *CBC with Differential *CBC with Differential [facility] Work Phone: Start: 12-06-2013 End: 12-06-2013 Follow Up Appt 6 months Follow Up Appt 6 months [facility] Work Phone: Start: 12-06-2013 End: 12-06-2013 MMM MMM [facility] Work Phone: Start: 12-06-2013 End: 12-06-2013 Venous doppler Venous doppler [facility] Work Phone: Start: 09-06-2013 End: 09-06-2013 CRM MARKETING SPECIALIST CRM MARKETING SPECIALIST [facility] Work Phone: Start: 09-06-2013 End: 09-06-2013 Ct thorax w/o & w/contrast material CT Chest with and without Contrast [facility] Work Phone: Start: 09-06-2013 End: 09-06-2013 Follow Up Appt 3 months Follow Up Appt 3 months [facility] Work Phone: Start: 09-06-2013 End: 09-06-2013 Nuclear stress test -exercise Nuclear stress test -exercise [facility] Work Phone: Start: 06-26-2013 End: 09-02-2013 *Hepatic Function Panel *Hepatic Function Panel [facility] Work Phone: Start: 06-26-2013 End: 06-26-2013 CRM MARKETING SPECIALIST CRM MARKETING SPECIALIST [facility] Work Phone: Start: 06-26-2013 End: 06-26-2013 Ecg routine ecg w/least 12 lds w/i&r EKG (In office) [facility] Work Phone: Start: 06-26-2013 End: 06-26-2013 Echocardiography Echocardiogram (complete) [facility] Work Phone: Start: 06-26-2013 End: 06-26-2013 Follow Up Appt 2 months Follow Up Appt 2 months [facility] Work Phone: Start: 06-26-2013 End: 07-02-2013 INR Coag RelTime (PPP) *PT/INR - Standing Order [facility] Work Phone: Start: 06-26-2013 End: 09-02-2013 Lipid 1996 panel *Lipid Profile CC PCP [facility] Work Phone: Start: 2009 SHINGRIX VACCINE (1 of 2) SHINGRIX VACCINE (1 of 2) [facility] Start: 2009 Tuberculosis screening COLORECTAL CANCER SCREENING,SEE MODIFIER [facility] Start: 1999 Mammography MAMMOGRAM [facility] Start: 1989 HPV TESTING HPV TESTING [facility] Start: 02-28-1980 PAP TESTING PAP TESTING [facility] Start: 1978 Urine microalbumin profile DTAP,TDAP,TD (1 - Tdap) [facility] Start: 1977 HIV SCREENING HIV SCREENING [facility] Ankle brachial pressure index [facility] Patient Education [facility] Work Phone: Patient referral [facility] Work Phone: Immunizations Immunization Date Immunization Notes Care Provider Telly sinhanicolette 01-11-2018 influenza, injectabl e, quadrivalent, preservative free [facility] 01-11-2018 influenza, seasonal, injectable Dr. Fara Bernal Work Phone: [facility] 01-11-2017 influenza, injectabl e, quadrivalent, preservative free [facility] 01-11-2017 influenza, seasonal, injectable Dr. Fara Bernal Work Phone: [facility] 01-04-2016 influenza, injectabl e, quadrivalent, preservative free [facility] 01-04-2016 influenza, seasonal, injectable Dr. Fara Bernal Work Phone: [facility] 03-03-2014 influenza, injectabl e, quadrivalent, preservative free [facility] 03-03-2014 influenza, seasonal, injectable Dr. Fara Bernal Work Phone: [facility] Payers Date Payer Category Payer Unknown [id number] 2023 Medicaid [id number] 2023 Self-pay [id number] 2023 Unknown [id number] 2004 Unknown MMO [employer]MICHELLEMMO SUPER MED PLUS [id number] 2004-2018 PPO [id number] Medicare [id number] Unknown [id number] Unknown [facility] [id number] Unknown [id number] [id number] Unknown [id number] 2.16.840.1.050056.3.579.2.462 Unknown [id number] 2.16.840.1.438601.3.579.2.462 Unknown [id number] 2.16.840.1.608092.3.579.2.462 Unknown [id number] 2.16.840.1.872725.3.579.2.462 Unknown [id number] 2.16.840.1.118657.3.579.2.462 Unknown [id number] 2.16.840.1.146888.3.579.2.462 Unknown [id number] 2.16.840.1.275250.3.579.2.462 Unknown [id number] 2.16.840.1.652059.3.579.2.462 Unknown [id number] 2.16.840.1.375604.3.579.2.462 Unknown [id number] 2.16.840.1.449043.3.579.2.462 Unknown [id number] 2.16.840.1.901467.3.579.2.462 Unknown [id number] 2.16.840.1.667558.3.579.2.462 Unknown [id number] 2.16.840.1.259531.3.579.2.462 Unknown [id number] 2.16.840.1.128030.3.579.2.462 Unknown [id number] 2.16.840.1.594493.3.579.2.462 Unknown [id number] 2.840.1.874155.3.579.2.462 Unknown [id number] 2.840.1.875942.3.579.2.462 Unknown [id number] 2.16840.1.389926.3.579.2.462 Unknown [id number] 2.840.1.710710.3.579.2.462 Unknown [id number] 2.840.1.092666.3.579.2.462 Unknown [id number] 2.840.1.100457.3.579.2.462 Unknown [id number] 2.840.1.254711.3.579.2.462 Unknown [id number] 2.840.1.527037.3.579.2.462 Unknown [id number] 2.840.1.963408.3.579.2.462 Unknown [id number] 2.840.1.734563.3.579.2.462 Unknown [id number] 2.840.1.776566.3.579.2.462 Unknown [id number] 2.840.1.482559.3.579.2.462 Unknown [id number] 2.840.1.101105.3.579.2.462 Unknown [id number] 2.840.1.698318.3.579.2.462 Unknown [id number] 2.840.1.516784.3.579.2.462 Unknown [id number] Unknown [id number] Unknown [id number] Unknown [id number] Unknown [id number] Unknown [id number] Unknown [id number] Unknown [id number] Unknown [id number] Social History Date Type Detail Facility Tobacco smoking status NHIS Unknown if ever smoked [facility] Sex Assigned At Not on file [facility] Start: 07-26-2021 End: 05-09-2023 Tobacco smoking status NHIS Unknown if ever smoked [facility] Start: 12-13-2018 None [facility] Start: 12-14-2018 Spouse/ Signif icant Other [facility] Start: 12-13-2018 Non-smoker [facility] Start: 1960 Sex Assigned At Female [facility] Start: 12-07-2023 Tobacco smoking status NHIS Never smoked tobacco (finding) [facility] Start: 05-24-2024 Sex Female (finding) [facility] Medical Equipment Procedure Code Equipment Code Equipment Origin al Text Equipment Identifier Dates INSULIN PEN NEEDLE PEN NEEDLES 5 /16 31G X 8 MM [id number] Start: 10-29-2010 End: 05-06-2016 Pen Needle, Diabetic 31 gauge x 5/16 needle Start: 04-02-2020 Pen Needle, Diabetic 31 gauge x 5/16 needle Start: 04-02-2020 Goals Date Patient Goal Desired Activity /State Functional Status Date Assessment Result Facility 04-07-2023 Functional status Activity Abili ty Standby Assist [facility] Work Phone: 04-07-2023 Functional status Ambulates [facility] Work Phone: Mental Status Date Assessment Result Facility 04-07-2023 Cognitive function Voice/Name [facility] Work Phone: 04-05-2023 Cognitive function Level Of Cons ciousness Awake;Alert;Appropriate;Follow s Commands [facility] Work Phone: Clinical Notes 04-10-2013 to 05-21-2024 Note Date & Type Note Facility 05-21-2024 Radiology Diagnostic study note [facility] Imaging Services [address] [place], [place] [address] Finger(s) Min 2 Views MR#: [id number] Acct: [id number] Name: JOSH GRAY Rep #: [id number] : 1960 F 64 From: Shiela Brown MD PCP: Dr. Fara Bernal DO Status: REG CLI Study:Finger(s) Min 2 Views Date of Exam: 05/21/24 Exam# [id number] Ordering Dr: [facility] PROCEDURE: FINGER(S) MIN 2 VIEWS 05/21/2024 REASON FOR EXAM: ERYTHEMA, SWELLING, PAIN TECHNIQUE: 3 view(s) of the RIGHT index finger COMPARISON: None FINDINGS: Fracture/dislocation: None visible. Joint space(s): Mild/moderate joint space loss 2nd DIP. Mild joint space loss 2nd PIP. No clear erosions. Soft tissues: Faint mineralization in the soft tissues along the dorsal and ulnar aspect of the DIP. Vascular calcifications. Foreign bodies: None visible. Bone mineralization: Demineralization. No periarticular osteopenia. Other: None. RAD/Finger(s) Min 2 Views IMPRESSION: 1. Demineralization without visible acute displaced fracture. 2. Faint soft tissue mineralization and soft tissue swelling along the 2nd DIP joint. Correlate for clinical evidence of calcific tendinopathy or perhaps early gout or pseudogout/CPPD associated arthropathy, although this distribution would be unusual. No clear erosions. 3. Additional description as above. Reading Location: [id number] CC: Dr. Fara Bernal DO; FLO Witt ~ Air Brake Adjuster: Signed [facility] 04-19-2024 Evaluation note Diagnosis Onset Date Resolution Essential (primary) hypertension acute April 19, 2024 8:38am PAF (paroxysmal atrial fibrillation) acute April 19, 2024 8:38am Peripheral arterial disease acute April 19, 2024 8:38am Atherosclerotic heart disease of [place] coronary artery without angina pectoris chronic April 19, 2024 8:38am MARLEN (obstructive sleep apnea) chronic April 19, 2024 8:38am Hyperlipidemia inactive April 19, 2024 8:38am Swelling of right index finger acute May 21, 2024 10:16am Other specified peripheral vascular diseases acute May 23, 2024 8:32am [facility] Work Phone: 1(662) 177-960710-31-2024 [facility]10-25-2024 [facility]02-23-2024 Progress note Author Sheng Pritchard [facility] April 07, 2023 7:48am Note Date/Time April 07, 2023 7:48am [facility] Medical Records Department [address] [place] [id number] Progress Note - Cardiology 04/07/23 0743 MR#: [id number] Acct: [id number] Name: JOSH GRAY Rep #:[id number] : 1960 63 From: Sheng Pritchard MD PCP: Dr. Fara Bernal, DO Status:ADM IN Location: [place] [address] Subjective Subjective Patient seen and evaluated. Did well overnight. Objective Data Vital Signs: Vital Signs Temp Pulse Resp BP Pulse Ox O2 Del Method 96.6 F L 74 16 149/72 H 98 Room Air 04/07/23 03:00 04/07/23 03:00 04/07/23 03:00 04/07/23 03:00 04/07/23 03:00 04/07/23 03:29 Oxygen Delivery Method Room Air Weight: 205 lb 14.588 oz Body Mass Index (BMI) 35.3 Intake & Output: Intake and Output for Last 24 Hours 04/05/23 04/06/23 04/07/23 23:59 23:59 23:59 Intake Total 1877 150 / 150 Balance 1877 150 / 150 Lab / Micro Data 04/07/23 05:20 04/07/23 05:20 Labs: Laboratory Results - last 24 hr 04/06/23 20:42: POC Glucose 247 H 04/07/23 05:20: WBC 8.2, RBC 4.69, Hgb 12.6, Hct 39.6, MCV 84.4, MCH 26.9 L, MCHC 31.8 L, RDW Std Deviation 50.3 H, RDW Coeff of Dutch 16.2 H, Plt Count 205, MPV 10.9, Immature Gran % (Auto) 0.100, Neut % (Auto) 56.5, Lymph % (Auto) 30.2,Corson % (Auto) 7.4, Eos % (Auto) 5.1 H, Baso % (Auto) 0.7, Absolute Neuts (auto) 4.6, Absolute Lymphs (auto) 2.48, Nucleated RBC % 0, Sodium 141, Potassium 3.7, Chloride 110 H, Carbon Dioxide 26.0, Anion Gap 5, BUN 19 H, Creatinine 0.88, Estim Creat Clear Calc 71.55, Est GFR (MDRD) Af Amer 83, Est GFR (MDRD) Non-Af 69, BUN/Creatinine Ratio 21.6 H, Glucose 246 H, Calcium 8.6 04/07/23 06:29: POC Glucose 220 H Cardiology Labs/Tests 04/07/23 05:20: WBC 8.2, RBC 4.69, Hgb 12.6, Hct 39.6, MCV 84.4, MCH 26.9 L, MCHC 31.8 L, Plt Count 205, MPV 10.9, Immature Gran % (Auto) 0.100, Neut % (Auto) 56.5, Lymph % (Auto) 30.2, Corson % (Auto) 7.4, Eos % (Auto) 5.1 H, Baso % (Auto) 0.7, Absolute Neuts (auto) 4.6, Nucleated RBC % 0, Sodium 141, Potassium 3.7, Chloride 110 H, Carbon Dioxide 26.0, Anion Gap 5, BUN 19 H, Creatinine 0.88, Est GFR (MDRD) Af Amer 83, Est GFR (MDRD) Non-Af 69, BUN/Creatinine Ratio 21.6 H, Glucose 246 H, Calcium 8.6 Rhythm: EKG: ECHO: Stress Test: Cardiac Cath: PCI: CT Surgery: Holter monitor: EPS: PPM: CXR: Chest CT Scan: Radiography Diagnostic Testing: Radiology Impression Echocardiogram 04/06/23 00:50 Interpretation Summary Normal LV size. The estimated ejection fraction is 55 %. Mild segmental systolic dysfunction (see wall motion). Moderate concentric left ventricular hypertrophy. Stage 2 diastolic dysfunction. Mild-Moderate (1-2+) eccentric mitral valve insufficiency. Ordering Physician: Myla Lopez Referring Physician: Fara Bernal Performed By: Nan Gurrola RDCS Physical Exam Const alert, oriented x3 and no apparent distress General Appearance: cooperative HEENT hearing grossly normal bilaterally Head and Scalp: atraumatic Eyes EOMs intact bilaterally Neck General: normal visual inspection Chest inspection of chest normal and palpation of chest normal Resp normal respiratory effort Auscultation: clear to auscultation bilaterally Cardio regular rate, regular rhythm, S1 normal heart sound and S2 normal heart sound Jugular Venous Distention: JVD GI normal to inspection, nondistended, normoactive bowel sounds Extremity normal capillary refill and no pedal edema Peripheral Pulses: Yes pulses 2+ throughout and femoral pulses present Skin no rashes or lesions noted Neuro oriented x3 and CN's II-XII intact bilaterally Psych Appearance: grossly normal and appropriate Assessment & Plan Assessment/Plan (1) NSTEMI, initial episode of care: PLAN: She presents with chest discomfort and has a non-ST elevation myocardial infarction. She underwent cardiac catheterization which demonstrated patency ofthe BAUM to the LAD and the saphenous vein graft to the circumflex artery. Right coronary was totally occluded which was known before and there is collateral circulation from left to right. Her ejection fraction is low normal with basal inferior infarct. My suspicion is that her non-ST elevation was likely secondary to demand ischemia from very uncontrolled hypertension. Can be discharged on optimal medical therapy for outpatient follow-up. (2) H/O coronary artery bypass surgery: PLAN: She does have a history of coronary bypass surgery as noted above. (3) Essential (primary) hypertension: PLAN: Her blood pressure does not appear to be very well-controlled. I would recommend more aggressive control of the above. Her blood pressure appears to be better controlled this morning. (4) Hyperlipidemia: QUALIFIERS: Hyperlipidemia type: mixed hyperlipidemia Qualified Code(s): E78.2 - Mixed hyperlipidemia PLAN: We will continue with aggressive risk factor modification with a goal of LDL of 70 mg percent. 04/07/23 0748 <Electronically signed by Sheng Pritchard MD> Cosigner Signature (if applicable): CC: ~ Signed [facility] Work Phone: 1(589) 206-633202-22-2024 Progress note Author Ellen [facility] April 06, 2023 3:48pm Note Date/Time April 06, 2023 11:13[facility] Medical Records Department [address] [facility] [place] [address] Progress Note 04/06/23 1101 MR#: [id number] Acct: [id number] Name: JOSH GRAY Rep #:[id number] : 1960 63 From: Ellen Conway MD PCP: Dr. Fara Bernal, DO Status:ADM IN Location: [place] [address] Subjective Subjective Patient seen and examined. She was admitted with a complaint of chest pain. She is being managed for Nonstemi. She had no complaints this morning and had an uneventful night. Review of systems is otherwise negative. Objective Data Objective Data Vital Signs: Vital Signs Temp Pulse Resp BP Pulse Ox O2 Del Method 97.8 F 83 16 167/88 H 98 Room Air 04/06/23 08:13 04/06/23 08:13 04/06/23 08:13 04/06/23 08:13 04/06/23 08:13 04/06/23 08:17 Oxygen Delivery Method Room Air Weight: 204 lb 9.423 oz Body Mass Index (BMI) 35.1 Intake & Output: Intake and Output for Last 24 Hours 04/04/23 04/05/23 04/06/23 23:59 23:59 23:59 Intake Total 104 / 104 Balance 104 / 104 Lab / Micro Data 04/06/23 02:46 04/06/23 02:46 Labs: Laboratory Results - last 24 hr 04/05/23 21:03: WBC 8.9, RBC 4.64, Hgb 12.4, Hct 39.2, MCV 84.5, MCH 26.7 L, MCHC 31.6 L, RDW Std Deviation 48.5 H, RDW Coeff of Dutch 15.9 H, Plt Count 226, MPV 11.8, Immature Gran % (Auto) 0.200, Neut % (Auto) 62.9, Lymph % (Auto) 26.0,Corson % (Auto) 6.3, Eos % (Auto) 3.6, Baso % (Auto) 1.0, Absolute Neuts (auto) 5.6, Absolute Lymphs (auto) 2.32, Nucleated RBC % 0, Sodium 140, Potassium 3.6, Chloride 109 H, Carbon Dioxide 26.0, Anion Gap 5, BUN 20 H, Creatinine 0.87, Estim Creat Clear Calc 73.41, Est GFR (MDRD) Af Amer 85, Est GFR (MDRD) Non-Af 70,BUN/Creatinine Ratio 23.1 H, Glucose 273 H, Calcium 8.8, Troponin I High Sens 152 H* 04/05/23 23:45: Magnesium 1.4 L, Troponin I High Sens 1492 H* 04/06/23 02:46: WBC 9.1, RBC 4.55, Hgb 12.2, Hct 38.4, MCV 84.4, MCH 26.8 L, MCHC 31.8 L, RDW Std Deviation 48.6 H, RDW Coeff of Dutch 15.8 H, Plt Count 230, MPV 11.0, Immature Gran % (Auto) 0.200, Neut % (Auto) 51.3, Lymph % (Auto) 36.8,Corson % (Auto) 6.7, Eos % (Auto) 4.2, Baso % (Auto) 0.8, Absolute Neuts (auto) 4.6, Absolute Lymphs (auto) 3.33, Nucleated RBC % 0, Sodium 142, Potassium 3.8, Chloride 111 H, Carbon Dioxide 27.0, Anion Gap 4 L, BUN 19 H, Creatinine 0.76, Estim Creat Clear Calc 82.52, Est GFR (MDRD) Af Amer 98, Est GFR (MDRD) Non-Af 81, BUN/Creatinine Ratio 24.8 H, Glucose 220 H, Calcium 8.7, Magnesium 2.0, Total Bilirubin 0.50, AST 22, ALT 13, Alkaline Phosphatase 83, Troponin I High Sens 2521 H*, Total Protein 5.9 L, Albumin 2.5 L, Globulin 3.4, Albumin/GlobulinRatio 0.7 L, Triglycerides 83, Cholesterol 152, LDL Cholesterol 92, VLDL Cholesterol 17, HDL Cholesterol 43 04/06/23 06:14: POC Glucose 160 H Radiography Diagnostic Testing: Radiology Impression Chest X-Ray 04/05/23 21:16 IMPRESSION: Decreased inspiration with vascular crowding and mild bilateral mid lower lung atelectasis. Otherwise no acute cardiac pulmonary disease. Electronically Signed: Kandace Perez MD at 21:34 EST , Echocardiogram 04/06/23 00:50 Interpretation Summary Normal LV size. The estimated ejection fraction is 55 %. Mild segmental systolic dysfunction (see wall motion). Moderate concentric left ventricular hypertrophy. Stage 2 diastolic dysfunction. Mild-Moderate (1-2+) eccentric mitral valve insufficiency. Ordering Physician: Myla Lopez Referring Physician: Fara Bernal Performed By: Nan Gurrola RDCS Physical Exam Const alert, oriented x3, no apparent distress and well nourished General Appearance: cooperative HEENT normocephalic, head/scalp atraumatic, moist oral mucous membranes and oropharynxnormal Eyes PERRL and EOMs intact bilaterally Neck no lymphadenopathy, supple and no JVD Lymph Lymphatic: no lymphadenopathy noted and no lymphedema noted Resp normal respiratory effort, normal air movement and clear to auscultation bilaterally Cardio regular rate, regular rhythm, S1 normal heart sound, S2 normal heart sound and no murmurs GI normal to inspection, nondistended, normoactive bowel sounds, soft to palpation,non-tender and non-distended Extremity normal capillary refill, no clubbing, cyanosis or edema and no calf tenderness General Extremity: no tenderness to palpation of joints or extremities Skin General Skin Exam: no breakdown Neuro CN's II-XII intact bilaterally, no focal motor deficits, no sensory deficits noted and deep tendon reflexes 2+ bilaterally Motor Exam: strength 5/5 throughout and general weakness Psych thought process normal, cooperative and affect normal Appearance: appropriate Assessment & Plan Assessment/Plan (1) NSTEMI, initial episode of care: PLAN: Plan #Nonstemi * Troponins were elevated * EKG showed no acute ST changes * 2D echo showed moderate concentric LVH and EF of 55%, with stage 2 diastolic dysfunction with mid inferior akinetic bertrand, with the rest of the wall segments normal and stage 2 diastolic dysfunction. * on heparin drip, and eliquis held whilst she is in the hospital. * cardiology consulted; for cardiac cath today * #Peripheral artery disease * follows with vascular surgery * on aspirin, metoprolol, statin and losartan. * #CAD s/p CABG * had CABG in 2003. * on aspirin, statin and metoprolol as well as losartan. * #History of CVA * on aspirin, statin. also on eliquis for afib; this was held on admission and patient placed on heparin drip * #paroxysmal afib * eliquis held on admission. On metoprolol * #Type 2 diabetes mellitus: home meds on hold. ISS. Accuchecks ACHS. #Hyperlipidemia: on statin #History of DVT; eliquis on hold. #History of non Hodgkin's lymphoma * s/p treatment in 2012. To follow up with oncology on outpatient basis as scheduled. * #Code status: full code. Charges/Coding Visit Charges Inpatient E&M: 34499 Subs Hosp L2 04/06/23 1548 <Electronically signed by Ellen Conway MD> Ellen Conway MD Cosigner Signature (if applicable): CC: ~ Signed [facility] Work Phone: 1(309) 451-703902-22-2024 Consult note Author Sheng Pritchard [facility] April 06, 2023 1:56pm Note Date/Time April 06, 2023 7:21am [facility] Medical Records Department [address] [place] [address] Consultation - Cardiology 04/06/23 0720 MR#: [id number] Acct: [id number] Name: JOSH GRAY Rep #:[id number] : 1960 63 From: Sheng Pritchard MD PCP: Dr. Fara Bernal, DO Status:ADM IN Location: [place] [address] Assessment & Plan Assessment/Plan (1) NSTEMI, initial episode of care: PLAN: She presents with chest discomfort and has a non-ST elevation myocardial infarction. My recommendation is for us to proceed with a left heart catheterization. Risk benefits alternatives have been discussed with her she understands and agrees to proceed. Addendum: She underwent cardiac catheterization which demonstrated patency of the BAUM to the LAD and the saphenous vein graft to the circumflex artery. Right coronary was totally occluded which was known before and there is collateral circulation from left to right. Her ejection fraction is low normal with basal inferior infarct. My suspicion is that her non-ST elevation was likely secondary to demand ischemia from very uncontrolled hypertension. (2) H/O coronary artery bypass surgery: PLAN: She does have a history of coronary bypass surgery as noted above. This will be evaluated again with the cardiac catheterization (3) Essential (primary) hypertension: PLAN: Her blood pressure does not appear to be very well-controlled. I would recommend more aggressive control of the above. (4) Hyperlipidemia: QUALIFIERS: Hyperlipidemia type: mixed hyperlipidemia Qualified Code(s): E78.2 - Mixed hyperlipidemia PLAN: We will continue with aggressive risk factor modification with a goal of LDL of 70 mg percent. HPI Consult Data Date of Consult: 04/06/23 HPI Narrative HPI Narrative: JOSH GRAY, is a 63 F who presents to the emergency room with substernal chestdiscomfort. She says that she was sitting down watching TV when she started experiencing the above. She has been compliant with her medications as well as her follow-up. She has a history of coronary artery disease status post coronary artery bypass surgery in 2003 she had a BAUM to the LAD and a saphenousvein graft to circumflex artery. The distal right coronary artery was not bypassed. She also has a history of hypertension, hyperlipidemia, non-Hodgkin'slymphoma, and diabetes mellitus. Her last cardiac catheterization in July 2018 demonstrated the circumflex artery being occluded, the right coronary artery wasoccluded the BAUM graft to the LAD was patent the saphenous vein graft to the circumflex artery was patent and there was collateral flow noted from left to right. Her ejection fraction was noted to be 60% with inferobasilar wall motionabnormalities. In 12/2018 she had an acute ischemic stroke in the left thalamus extending to the left cerebral peduncle. She does have some residual effects from this. She does have MARLEN and does not use her CPAP. Overall pt feel that she is doing okay. She did have some vision changes and isin need of laser surgery on her eye. She is also having issues with her back. She does not have any claudication issues. She does sometimes have edema. She was seen in the emergency room her EKG demonstrated normal sinus rhythm and cardiac enzymes were noted to be abnormal and cardiology was called for further evaluation and management. [facility] Medical History Anemia Arthritis Chronic diastolic (congestive) heart failure CVA (cerebral vascular accident) (12/14/18) Diabetic retinopathy associated with type 2 diabetes mellitus Dysarthria Dyspnea Essential (primary) hypertension History of deep venous thrombosis (DVT) of distal vein of left lower extremity (04/13/13) History of non-Hodgkin's lymphoma (2012) History of non-ST elevation myocardial infarction (NSTEMI) (04/08/13) Hyperlipidemia IBS (irritable bowel syndrome) Incontinent of urine 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) Limb weakness neck/back pain Obesity MARLEN (obstructive sleep apnea) PAF (paroxysmal atrial fibrillation) Polycystic ovaries Shoulder pain Skin lesion of left lower extremity Slurred speech Type 2 diabetes mellitus Home Medications cholecalciferol (vitamin D3) 50 mcg (2,000 unit) capsule 2,000 units PO DAILY vitamin 05/20/19 [History Last Taken 04/05/23 10:00] albuterol sulfate 90 mcg/actuation aerosol inhaler (Proventil HFA) 2 puff inhalation Q6H PRN Sob &/Or Wheezing 08/14/19 [History Last Taken 04/05/23 10:00] metformin 1,000 mg tablet 1,000 mg PO BID type II diabetes 04/02/20 [History Last Taken 04/05/23 10:00] pen needle, diabetic 31 gauge x 5/16 #1,200 ea 04/02/20 [History Last Taken Unknown] furosemide 40 mg tablet 40 mg PO QAM water pill #90 tabs 05/17/21 [Rx Last Taken 04/05/23 10:00] losartan 50 mg tablet 50 mg PO DAILY bp #90 tabs 07/26/21 [Rx Last Taken 04/05/23 10:00] flash glucose sensor (FreeStyle Moses 14 Day Sensor kit) #1 ea 10/19/21 [History Last Taken Unknown] insulin degludec 100 unit/mL (3 mL) subcutaneous pen (Tresiba FlexTouch U-100 insulin) 50 unit subcut DAILY type II diabetes 10/19/21 [History Last Taken 04/05/23 10:00] atorvastatin 40 mg tablet (Lipitor) 40 mg PO DAILY cholesterol #90 tabs 08/23/22[Rx Last Taken 04/05/23 10:00] insulin aspart U-100 100 unit/mL (3 mL) subcutaneous pen 30 unit subcut .COMPLEXtype II diabetes 08/23/22 [History Last Taken 04/05/23 13:30] insulin aspart U-100 100 unit/mL (3 mL) subcutaneous pen 40 unit subcut BREAKFAST DM II 08/23/22 [History Last Taken 04/05/23 10:00] metoprolol succinate 50 mg tablet,extended release 24 hr 50 mg PO DAILY #90 tabs08/23/22 [Rx Last Taken Unknown] amlodipine 2.5 mg tablet 2.5 mg PO DAILY bp 04/06/23 [History Last Taken 04/05/23 10:00] apixaban 5 mg tablet (Eliquis) 5 mg PO Q12H heart 04/06/23 [History Last Taken 04/05/23 10:00] Allergy/AdvReac Type Severity Reaction Status Date / Time Penicillins Allergy Severe Rash Verified 04/05/23 20:32 grass pollen Allergy Intermediate Other Verified 04/05/23 20:32 tree and shrub pollen Allergy Intermediate Other Verified 04/05/23 20:32 lisinopril AdvReac Intermediate Other Verified 04/05/23 20:32 hydrocodone bitartrate AdvReac Mild Unknown Verified 04/05/23 20:32 [From Vicodin] losartan AdvReac Heart Burn Verified 04/05/23 20:32 Family History Father , 65 Diabetes Hypertension cabg Mother , Age 65 Hypertension Renal failure Sister Cancer Sister Diabetes Cardiomegaly Surgical History Atherosclerotic heart disease of [place] coronary artery without angina pectoris H/O coronary artery bypass surgery (04/10/13) History of left heart catheterization (07/26/18) Social History Smoking Status: Never smoker alcohol intake: never substance use type: does not use caffeine: Yes Type: coffee Number of servings: 2 ROS Constitutional Constitutional: Denies fever(s) or weight loss Eyes Eyes: Reports systems reviewed and no addt'l complaints, except as documented ENT HEENT: Reports systems reviewed and no addt'l complaints, except as documented Cardiovascular Cardiovascular: Denies chest pain at rest, chest pain with activity, dyspnea at rest, dyspnea on exertion, edema, palpitations or paroxysmal nocturnal dyspnea Respiratory/Chest Respiratory/Chest: Denies dyspnea on exertion, productive cough, shortness of breath at rest or shortness of breath with exertion Gastrointestinal Gastrointestinal: Denies change in bowel habits, nausea, vomiting or weight changes Genitourinary Genitourinary: Denies difficulty urinating Musculoskeletal Musculoskeletal: Denies joint stiffness or muscle weakness Integumentary Integumentary: Denies lesions Neurologic Neurologic: Denies dizziness or syncope Psychiatric Psychiatric: Denies anxiety Endocrine Endocrinology: Denies excessive sweating or fatigue Hematologic/Lymphatic Hematologic/Lymphatic: Denies anemia Allergic/Immunologic Allergic/Immunologic: Denies seasonal rhinorrhea Physical Exam Const alert, oriented x3 and no apparent distress General Appearance: cooperative HEENT hearing grossly normal bilaterally Head and Scalp: atraumatic Eyes EOMs intact bilaterally Neck General: normal visual inspection Chest inspection of chest normal and palpation of chest normal Resp normal respiratory effort Auscultation: clear to auscultation bilaterally Cardio regular rate, regular rhythm, S1 normal heart sound and S2 normal heart sound Jugular Venous Distention: JVD GI normal to inspection, nondistended, normoactive bowel sounds Extremity normal capillary refill and no pedal edema Peripheral Pulses: Yes pulses 2+ throughout and femoral pulses present Skin no rashes or lesions noted Neuro oriented x3 and CN's II-XII intact bilaterally Psych Appearance: grossly normal and appropriate Risk Stratification Risk Stratification Applicable: Yes Age >/= 65: No >/= 3 CAD Risk Factors (HTN, HLD, DM, family hx of CAD, or current smoker): Yes Aspirin Use in the Past 7 Days: Yes Severe Angina (>/= episodes in 24 hours): No EKG ST Changes >/= 0.5mm: No Positive Cardiac Marker: Yes CORNELIUS Risk Stratification Score: 3 CORNELIUS % Risk: 13% Risk Objective Data Vital Signs: Vital Signs Temp Pulse Resp BP Pulse Ox O2 Del Method 97.0 F L 77 18 175/114 H 99 Room Air 04/06/23 06:00 04/06/23 06:29 04/06/23 06:00 04/06/23 06:29 04/06/23 06:00 04/06/23 06:00 Oxygen Delivery Method Room Air Weight: 204 lb 9.423 oz Body Mass Index (BMI) 35.1 Intake & Output: Intake and Output for Last 24 Hours 04/04/23 04/05/23 04/06/23 23:59 23:59 23:59 Intake Total 104 / 104 Balance 104 / 104 Lab / Micro Data 04/06/23 02:46 04/06/23 02:46 Labs: Laboratory Results - last 24 hr 04/05/23 21:03: WBC 8.9, RBC 4.64, Hgb 12.4, Hct 39.2, MCV 84.5, MCH 26.7 L, MCHC 31.6 L, RDW Std Deviation 48.5 H, RDW Coeff of Dutch 15.9 H, Plt Count 226, MPV 11.8, Immature Gran % (Auto) 0.200, Neut % (Auto) 62.9, Lymph % (Auto) 26.0,Corson % (Auto) 6.3, Eos % (Auto) 3.6, Baso % (Auto) 1.0, Absolute Neuts (auto) 5.6, Absolute Lymphs (auto) 2.32, Nucleated RBC % 0, Sodium 140, Potassium 3.6, Chloride 109 H, Carbon Dioxide 26.0, Anion Gap 5, BUN 20 H, Creatinine 0.87, Estim Creat Clear Calc 73.41, Est GFR (MDRD) Af Amer 85, Est GFR (MDRD) Non-Af 70, BUN/Creatinine Ratio 23.1 H, Glucose 273 H, Calcium 8.8, Troponin I High Sens 152 H* 04/05/23 23:45: Magnesium 1.4 L, Troponin I High Sens 1492 H* 04/06/23 02:46: WBC 9.1, RBC 4.55, Hgb 12.2, Hct 38.4, MCV 84.4, MCH 26.8 L, MCHC 31.8 L, RDW Std Deviation 48.6 H, RDW Coeff of Dutch 15.8 H, Plt Count 230, MPV 11.0, Immature Gran % (Auto) 0.200, Neut % (Auto) 51.3, Lymph % (Auto) 36.8,Corson % (Auto) 6.7, Eos % (Auto) 4.2, Baso % (Auto) 0.8, Absolute Neuts (auto) 4.6, Absolute Lymphs (auto) 3.33, Nucleated RBC % 0, Sodium 142, Potassium 3.8, Chloride 111 H, Carbon Dioxide 27.0, Anion Gap 4 L, BUN 19 H, Creatinine 0.76, Estim Creat Clear Calc 82.52, Est GFR (MDRD) Af Amer 98, Est GFR (MDRD) Non-Af 81, BUN/Creatinine Ratio 24.8 H, Glucose 220 H, Calcium 8.7, Magnesium 2.0, Total Bilirubin 0.50, AST 22, ALT 13, Alkaline Phosphatase 83, Troponin I High Sens 2521 H*, Total Protein 5.9 L, Albumin 2.5 L, Globulin 3.4, Albumin/GlobulinRatio 0.7 L, Triglycerides 83, Cholesterol 152, LDL Cholesterol 92, VLDL Cholesterol 17, HDL Cholesterol 43 04/06/23 06:14: POC Glucose 160 H Cardiology Labs/Tests 04/05/23 21:03: WBC 8.9, RBC 4.64, Hgb 12.4, Hct 39.2, MCV 84.5, MCH 26.7 L, MCHC 31.6 L, Plt Count 226, MPV 11.8, Immature Gran % (Auto) 0.200, Neut % (Auto) 62.9, Lymph % (Auto) 26.0, Corson % (Auto) 6.3, Eos % (Auto) 3.6, Baso % (Auto) 1.0, Absolute Neuts (auto) 5.6, Nucleated RBC % 0, Sodium 140, Potassium 3.6, Chloride 109 H, Carbon Dioxide 26.0, Anion Gap 5, BUN 20 H, Creatinine 0.87, Est GFR (MDRD) Af Amer 85, Est GFR (MDRD) Non-Af 70, BUN/Creatinine Ratio 23.1 H, Glucose 273 H, Calcium 8.8 04/05/23 23:45: Magnesium 1.4 L 04/06/23 02:46: WBC 9.1, RBC 4.55, Hgb 12.2, Hct 38.4, MCV 84.4, MCH 26.8 L, MCHC 31.8 L, Plt Count 230, MPV 11.0, Immature Gran % (Auto) 0.200, Neut % (Auto) 51.3, Lymph % (Auto) 36.8, Corson % (Auto) 6.7, Eos % (Auto) 4.2, Baso % (Auto) 0.8, Absolute Neuts (auto) 4.6, Nucleated RBC % 0, Sodium 142, Potassium 3.8, Chloride 111 H, Carbon Dioxide 27.0, Anion Gap 4 L, BUN 19 H, Creatinine 0.76, Est GFR (MDRD) Af Amer 98, Est GFR (MDRD) Non-Af 81, BUN/Creatinine Ratio 24.8 H, Glucose 220 H, Calcium 8.7, Magnesium 2.0, Total Bilirubin 0.50, Triglycerides 83, Cholesterol 152, LDL Cholesterol 92, VLDL Cholesterol 17, HDL Cholesterol 43 Rhythm: EKG: ECHO: Stress Test: Cardiac Cath: PCI: CT Surgery: Holter monitor: EPS: PPM: CXR: Chest CT Scan: Radiography Diagnostic Testing: Radiology Impression Chest X-Ray 04/05/23 21:16 IMPRESSION: Decreased inspiration with vascular crowding and mild bilateral mid lower lung atelectasis. Otherwise no acute cardiac pulmonary disease. Electronically Signed: Kandace Perez MD at 21:34 EST , 04/06/23 5009 <Electronically signed by Sheng Pritchard MD> Cosigner Signature (if applicable): CC: Dr. Myla Lopez MD; Dr. Sheng Pritchard MD; Dr. Fara Bernal DO~ Signed [facility] Work Phone: 1([phone]) 323-261902-22-2024 Discharge summary Author Kaden Gardiner [facility] April 06, 2023 12:07am Note Date/Time April 05, 2023 8:53pm [facility] Medical Records Department [address] [place] [address] Emergency Department Summary 04/05/23 MR#: [id number] Acct: [id number] Name: JOSH GRAY Rep #:[id number] : 1960 63 From: Kaden Gardiner MD PCP: Dr. Fara Bernal DO Status:ADM IN Location: [address] History of Present Illness Chief Complaint: Chest Pain Narrative Narrative: 63-year-old female past medical history of coronary artery disease and previous MD without stenting, CVA, atrial fibrillation, on Eliquis presents with chest pain and left arm pain since around 630 this evening, almost 2 hours ago. She denies any nausea or vomiting. No swelling of her legs, no fevers or chills, noshortness of breath. She has a chronic cough. She states that she has had history of chest pain because 10 years ago she had a port in her chest, and sometimes that gives her problems. She also has problems with memory from a CVAremotely years back. She presents because of the left-sided chest pain and pressure that she was having, and states that her entire arm had pain in it. This was new for her. This lasted approximately an hour and a half while she was sitting in bed. She states that it lasted an hour and they decided to call EMS, and it resolved upon arrival here. No other exacerbating or alleviating factors. This is not how she felt when she had her prior MD. She states she never really had chest or arm pain at that time. [facility] Medical History (Updated 04/05/23 @ 23:[address] Myla Lopez MD) Anemia Arthritis Chronic diastolic (congestive) heart failure CVA (cerebral vascular accident) (12/14/18) Diabetic retinopathy associated with type 2 diabetes mellitus Dysarthria Dyspnea Essential (primary) hypertension History of deep venous thrombosis (DVT) of distal vein of left lower extremity (04/13/13) History of non-Hodgkin's lymphoma (2012) History of non-ST elevation myocardial infarction (NSTEMI) (04/08/13) Hyperlipidemia IBS (irritable bowel syndrome) Incontinent of urine 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) Limb weakness neck/back pain Obesity MARLEN (obstructive sleep apnea) PAF (paroxysmal atrial fibrillation) Polycystic ovaries Shoulder pain Skin lesion of left lower extremity Slurred speech Type 2 diabetes mellitus Home Medications cholecalciferol (vitamin D3) 50 mcg (2,000 unit) capsule 2,000 units PO DAILY 05/20/19 [History Last Taken Unknown] albuterol sulfate 90 mcg/actuation aerosol inhaler (Proventil HFA) 2 puff inhalation Q6H PRN Sob &/Or Wheezing 08/14/19 [History Last Taken Unknown] metformin 1,000 mg tablet 1,000 mg PO BID 04/02/20 [History Last Taken Unknown] pen needle, diabetic 31 gauge x 5/16 #1,200 ea 04/02/20 [History Last Taken Unknown] furosemide 40 mg tablet 40 mg PO QAM #90 tabs 05/17/21 [Rx Last Taken Unknown] losartan 50 mg tablet 50 mg PO DAILY #90 tabs 07/26/21 [Rx Last Taken Unknown] flash glucose sensor (FreeStyle Moses 14 Day Sensor kit) #1 ea 10/19/21 [History Last Taken Unknown] insulin degludec 100 unit/mL (3 mL) subcutaneous pen (Tresiba FlexTouch U-100 insulin) 50 unit subcut DAILY 10/19/21 [History Last Taken Unknown] apixaban 5 mg tablet (Eliquis) See Rx Instructions .Route .COMPLEX #60 TABLETS 03/24/22 [Rx Last Taken Unknown] atorvastatin 40 mg tablet (Lipitor) 40 mg PO DAILY #90 tabs 08/23/22 [Rx Last Taken Unknown] insulin aspart U-100 100 unit/mL (3 mL) subcutaneous pen 30 unit subcut .CCIBKLS04/11/23 [History Last Taken Unknown] insulin aspart U-100 100 unit/mL (3 mL) subcutaneous pen 40 unit subcut BREAKFAST 08/23/22 [History Last Taken Unknown] metoprolol succinate 50 mg tablet,extended release 24 hr 50 mg PO DAILY #90 tabs07/11/23 [Rx Last Taken Unknown] tramadol 50 mg tablet 50 mg PO Q6H 3 days #12 tabs 03/18/23 [Rx Last Taken Unknown] amlodipine 2.5 mg tablet See Rx Instructions .Route .COMPLEX #90 tabs 03/22/23 [Rx Last Taken Unknown] Allergy/AdvReac Type Severity Reaction Status Date / Time Penicillins Allergy Severe Rash Verified 04/05/23 20:32 grass pollen Allergy Intermediate Other Verified 04/05/23 20:32 tree and shrub pollen Allergy Intermediate Other Verified 04/05/23 20:32 lisinopril AdvReac Intermediate Other Verified 04/05/23 20:32 hydrocodone bitartrate AdvReac Mild Unknown Verified 04/05/23 20:32 [From Vicodin] losartan AdvReac Heart Burn Verified 04/05/23 20:32 Family History Father , 65 Diabetes Hypertension cabg Mother , Age 65 Hypertension Renal failure Sister Cancer Sister Diabetes Cardiomegaly Surgical History Atherosclerotic heart disease of [place] coronary artery without angina pectoris H/O coronary artery bypass surgery (04/10/13) History of left heart catheterization (07/26/18) Social History Smoking Status: Never smoker alcohol intake: never substance use type: does not use caffeine: Yes Type: coffee Number of servings: 2 ROS ROS ED ROS Narrative Constitutional: No fever, no chills. HEENT: No sore throat. No neck pain. No loss of vision. No rhinorrhea. Cardiovascular: Positive for left-sided chest pain. Arm pain. No palpitations. No pedal edema. Respiratory: No cough, no shortness of breath. Abdominal: No abdominal pain. No nausea. No vomiting. Genitourinary: No dysuria. No hematuria. Musculoskeletal: No myalgias. No arthralgias. Neurologic: No headaches. No dizziness. No lightheadedness. Skin: No rash. No change in color. Psychiatric: No depression. No anxiety. EXAM Physical Exam Narrative Exam Narrative: Afebrile. Vital signs noted. HEENT: Normocephalic. Atraumatic. PERRL, EOMI. Neck soft and supple. No pointtenderness or step off. Cardiovascular: Regular rate and rhythm. No murmurs, rubs, or gallops appreciated. Respiratory: No tachypnea. Lungs clear to auscultation bilaterally. Gastrointestinal: Abdomen soft, nontender, with normoactive bowel sounds. No rebound or guarding. Neurological: Awake. Alert. Nonfocal, nonlateralizing. Skin: No rash. Normal color. No pallor. Musculoskeletal: No pedal edema. Full range of motion extremities. Const Vital Signs: 04/05/23 20:33 04/05/23 20:36 04/05/23 21:17 Temperature 97.9 F 97.9 F Temperature Source Oral Oral Pulse Rate 83 83 Respiratory Rate 16 16 Blood Pressure 173/102 H 176/102 H Blood Pressure Mean 125 126 Pulse Ox 96 96 Oxygen Delivery Method Room Air Room Air Room Air Heart Score History: Slightly/Non-Suspicious ECG: Normal Age: >45 - <65 years Risk Factors: >/= 3 Risk Factors or History of CAD Score: 3 MDM MDM MDM Narrative Medical decision making narrative: The differential diagnosis is acute coronary syndrome versus pulmonary embolism versus aortic dissection versus nonspecific chest pain. I have low suspicion for pulmonary embolism because she is already on anticoagulants and she is not tachycardic, she is not hypoxic either. I do not feel D-dimer or CT of the chest is indicated because she is already on anticoagulants. I reviewed the prehospital EKG which showed sinus tachycardia in the 120's. However, on the monitor here, her heart rate is in the 80s. No STEMI on her prehospital EKG. Ihave low suspicion for aortic dissection as she has no tearing back pain and equal pulses bilaterally. I do feel that serial enzymes are warranted along with chest pain workup. She will be given aspirin. She had already received 3 nitroglycerin per squad and is currently pain-free. I reviewed her laboratory work here today and she has a normal white count of 8.9, hemoglobin 12.4, hematocrit 39.2, platelet count normal at 226. Sodium is normal at 140 with potassium 3.6, chloride elevated at 109 which I think is nonspecific, BUN also elevated at 20 with a normal creatinine of 0.87. Glucose is elevated at 273 but I have low concern for diabetic ketoacidosis with her normal anion gap. Of significance is her troponin which is elevated at 152. Chest x-ray in 1 view interpreted by myself shows no pneumothorax or consolidation. As she is on Eliquis, I will refrain from using heparin. 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 Patient was discussed with thehospitalist, Dr. Myla Lopez, for admission. Her second troponin is pending. Disposition is admitted in stable condition. History & Record Review Discussion w/independent historian: Patient and Family Lab Data Attestation: I reviewed the patient's lab results. Labs: Laboratory Results - last 24 hr 04/05/23 21:03 WBC 8.9 RBC 4.64 Hgb 12.4 Hct 39.2 MCV 84.5 MCH 26.7 L MCHC 31.6 L RDW Std Deviation 48.5 H RDW Coeff of Dutch 15.9 H Plt Count 226 MPV 11.8 Immature Gran % (Auto) 0.200 Neut % (Auto) 62.9 Lymph % (Auto) 26.0 Corson % (Auto) 6.3 Eos % (Auto) 3.6 Baso % (Auto) 1.0 Absolute Neuts (auto) 5.6 Absolute Lymphs (auto) 2.32 Nucleated RBC % 0 Sodium 140 Potassium 3.6 Chloride 109 H Carbon Dioxide 26.0 Anion Gap 5 BUN 20 H Creatinine 0.87 Estim Creat Clear Calc 73.41 Est GFR (MDRD) Af Amer 85 Est GFR (MDRD) Non-Af 70 BUN/Creatinine Ratio 23.1 H Glucose 273 H Calcium 8.8 Troponin I High Sens 152 H* Radiography Diagnostic Testing: Clinical Impression(s) from Imaging Studies Chest X-Ray 04/05/23 21:16 IMPRESSION: Decreased inspiration with vascular crowding and mild bilateral mid lower lung atelectasis. Otherwise no acute cardiac pulmonary disease. Electronically Signed: Kandace Perez MD at 21:34 EST , Discharge Plan Triage Chief Complaint: Chest Pain ED Provider: Kaden Gardiner Dx/Rx/DC Orders Primary Care Provider: Fara Bernal What to do if you have Problems For any increased pain, shortness of breath, bleeding, nausea or vomiting, chestpain, or any unexpected problems, contact your Primary Care Provider. Call [facility] ([phone]) or report to the closest Emergency Room. Call 911 if necessary. 04/06/236 <Electronically signed by Kaden Gardiner MD> Cosigner Signature (if applicable): CC: Dr. Fara Bernal, DO ~ Signed [facility] Work Phone: 1([phone] 115-496902-22-2024 History and physical note Author Myla Lopez [facility] April 05, 2023 11:51pm Note Date/Time April 05, 2023 11:33pm [facility] Medical Records Department [address] [place] [address] H&P Exam - Hospitalist 04/05/232324 MR#: [id number] Acct: [id number] Name: JOSH GRAY Rep #:[id number] : 1960 63 From: Myla Lopez MD PCP: Dr. Fara Bernal DO Status:ADM IN Location: [facility] [id number] HPI - General General Date of Admission: 04/05/23 Date of Service: 04/05/23 Chief Complaint: Chest pain HPI Narrative The patient is a 63 y/o F w/ PMHx: PAF, PAD, Obesity, Hx VTE (DVT), Chronic anemia, Hx CVA with chronic dysarthria, Hx NH Lymphoma, Diabetes mellitus type II, MARLEN, HTN, HLD, Hx NSTEMI/CAD s/p CABG who presents to the [facility] ED on 04/05/23 with history of onset of chest discomfort with left upper extremity involvement starting approximately 6:30 in the evening on day of presentation with no associated nausea or emesis nor dyspnea with unchanged chronic cough describing the discomfort in her chest as a pressure with more discomfort in the left arm which is new and occurred while she was sitting in bed at rest and given that itwas ongoing and had lasted at least an hour prompted to eventually call EMS withdiscomfort resolved upon and eventual ED arrival. She notes the discomfort/pressure in her chest and discomfort in her LUE at its worst was 8/10in severity. She again confirms she is chest pain free currently. Workup in the ED included T97.9, heart rate 83, BP 173/102, respiratory rate 16, 96% on room air, CBC with WC 8.9, hemoglobin 12.4, platelet 226 without marked shift, BMP with chloride 109, BUN/creatinine 20/0.89, glucose 273 otherwise not marked appearing, troponin 152, chest x-ray with decreased infiltration with vascular crowding and mild bilateral mid to lower lung atelectasis otherwise no acute cardiopulmonary findings, EKG with sinus tachycardia with no acute evidence of ischemia. In the ED patient administered FS ASA. ED discussed case with Dr. Pritchard. [facility] Medical History (Updated 04/05/23 @ 23:[address] Myla Lopez MD) Anemia Arthritis Chronic diastolic (congestive) heart failure CVA (cerebral vascular accident) (12/14/18) Diabetic retinopathy associated with type 2 diabetes mellitus Dysarthria Dyspnea Essential (primary) hypertension History of deep venous thrombosis (DVT) of distal vein of left lower extremity (04/13/13) History of non-Hodgkin's lymphoma (2012) History of non-ST elevation myocardial infarction (NSTEMI) (04/08/13) Hyperlipidemia IBS (irritable bowel syndrome) Incontinent of urine 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) Limb weakness neck/back pain Obesity MARLEN (obstructive sleep apnea) PAF (paroxysmal atrial fibrillation) Polycystic ovaries Shoulder pain Skin lesion of left lower extremity Slurred speech Type 2 diabetes mellitus Home Medications cholecalciferol (vitamin D3) 50 mcg (2,000 unit) capsule 2,000 units PO DAILY 05/20/19 [History Last Taken Unknown] albuterol sulfate 90 mcg/actuation aerosol inhaler (Proventil HFA) 2 puff inhalation Q6H PRN Sob &/Or Wheezing 08/14/19 [History Last Taken Unknown] metformin 1,000 mg tablet 1,000 mg PO BID 04/02/20 [History Last Taken Unknown] pen needle, diabetic 31 gauge x 06/28 #1,200 ea 04/02/20 [History Last Taken Unknown] furosemide 40 mg tablet 40 mg PO QAM #90 tabs 05/17/21 [Rx Last Taken Unknown] losartan 50 mg tablet 50 mg PO DAILY #90 tabs 07/26/21 [Rx Last Taken Unknown] flash glucose sensor (FreeStyle Moses 14 Day Sensor kit) #1 ea 10/19/21 [History Last Taken Unknown] insulin degludec 100 unit/mL (3 mL) subcutaneous pen (Tresiba FlexTouch U-100 insulin) 50 unit subcut DAILY 10/19/21 [History Last Taken Unknown] apixaban 5 mg tablet (Eliquis) See Rx Instructions .Route .COMPLEX #60 TABLETS 03/24/22 [Rx Last Taken Unknown] atorvastatin 40 mg tablet (Lipitor) 40 mg PO DAILY #90 tabs 08/23/22 [Rx Last Taken Unknown] insulin aspart U-100 100 unit/mL (3 mL) subcutaneous pen 30 unit subcut .AQGNRTU96/11/23 [History Last Taken Unknown] insulin aspart U-100 100 unit/mL (3 mL) subcutaneous pen 40 unit subcut BREAKFAST 08/23/22 [History Last Taken Unknown] metoprolol succinate 50 mg tablet,extended release 24 hr 50 mg PO DAILY #90 tabs08/23/22 [Rx Last Taken Unknown] tramadol 50 mg tablet 50 mg PO Q6H 3 days #12 tabs 03/18/23 [Rx Last Taken Unknown] amlodipine 2.5 mg tablet See Rx Instructions .Route .COMPLEX #90 tabs 03/22/23 [Rx Last Taken Unknown] Allergy/AdvReac Type Severity Reaction Status Date / Time Penicillins Allergy Severe Rash Verified 04/05/23 20:32 grass pollen Allergy Intermediate Other Verified 04/05/23 20:32 tree and shrub pollen Allergy Intermediate Other Verified 04/05/23 20:32 lisinopril AdvReac Intermediate Other Verified 04/05/23 20:32 hydrocodone bitartrate AdvReac Mild Unknown Verified 04/05/23 20:32 [From Vicodin] losartan AdvReac Heart Burn Verified 04/05/23 20:32 Family History Father , 65 Diabetes Hypertension cabg Mother , Age 65 Hypertension Renal failure Sister Cancer Sister Diabetes Cardiomegaly Surgical History Atherosclerotic heart disease of [place] coronary artery without angina pectoris H/O coronary artery bypass surgery (04/10/13) History of left heart catheterization (07/26/18) Social History Smoking Status: Never smoker alcohol intake: never substance use type: does not use caffeine: Yes Type: coffee Number of servings: 2 ROS ROS Narrative Admission Review of Systems: CONSTITUTIONAL: No weight loss, fever, chills, + weakness or fatigue. HEENT: Eyes: No visual loss, blurred vision, double vision or yellow sclerae. Ears, Nose, Throat: No hearing loss, sneezing, congestion, runny nose or sore throat. SKIN: No rash or itching, lesions, wounds. CARDIOVASCULAR: + chest pain, chest pressure or chest discomfort. No palpitations, edema, orthopnea, syncopal events. RESPIRATORY: + Chronic cough. No shortness of breath, no marked productive sputum, wheezing, hemoptysis. GASTROINTESTINAL: No anorexia, nausea, vomiting or diarrhea, abdominal pain, melena, BRBPR. GENITOURINARY: No dysuria, frequency, urgency or retention. NEUROLOGICAL: + History of CVA with chronic dysarthria. No headache, dizziness,syncope, paralysis, ataxia, numbness or tingling in the extremities, focal weakness, change in bowel or bladder control, seizure. MUSCULOSKELETAL: + muscle, back pain, joint pain or stiffness. HEMATOLOGIC: No anemia. Easy bleeding/bruising. LYMPHATICS: No enlarged nodes. No history of splenectomy. PSYCHIATRIC: No history of depression or anxiety. ENDOCRINOLOGIC: No reports of sweating, cold or heat intolerance. No polyuria orpolydipsia. ALLERGIES: No history of asthma, hives, eczema or rhinitis. Vital Signs Vital Signs Vital Signs: 04/05/23 20:33 04/05/23 20:36 04/05/23 21:17 Temperature 97.9 F 97.9 F Temperature Source Oral Oral Pulse Rate 83 83 Respiratory Rate 16 16 Blood Pressure 173/102 H 176/102 H Blood Pressure Mean 125 126 Pulse Ox 96 96 Oxygen Delivery Method Room Air Room Air Room Air Weight Weight: 211 lb 6.773 oz Body Mass Index (BMI) 36.3 Physical Exam Narrative Physical Examination: General: Awake, alert, oriented x 3 and cooperative, seated upright in the ED bed in no apparent distress, currently chest pain free. Skin: Normal color, normal turgor, no icterus, no cyanosis. HEENT: AT/NC, EOMI, PERRLA, mildly dry MM, no carotid bruits or JVD noted. Lungs: CTA bilaterally, moderate effort, mild decrease BL bases, no rales, ronchi or wheezing. Heart: Regular rate and rhythm; no gallop, rub audible. Abdomen: Soft, obese, NTTP, ND, mildly hyperactive BS, no HSM. Extremities: No cyanosis, clubbing, or edema. Neurological: Patient awake, alert, oriented as noted, cognitive function intact; pupils equally reactive to light and accommodation, cranial nerves grossly normal, moving all 4 extremities, history prior CVA w/ chronic dysarthria but minimally noted, no focal deficits, strength mildly globally decreased secondary to acute presentation complaints. Psychiatric: Affect appears fatigued otherwise normal, no acute evidence of depressive or anxiety feelings. Results Lab / Micro Data 04/05/23 21:03 04/05/23 21:03 Labs: Laboratory Results - last 24 hr 04/05/23 21:03: WBC 8.9, RBC 4.64, Hgb 12.4, Hct 39.2, MCV 84.5, MCH 26.7 L, MCHC 31.6 L, RDW Std Deviation 48.5 H, RDW Coeff of Dutch 15.9 H, Plt Count 226, MPV 11.8, Immature Gran % (Auto) 0.200, Neut % (Auto) 62.9, Lymph % (Auto) 26.0,Corson % (Auto) 6.3, Eos % (Auto) 3.6, Baso % (Auto) 1.0, Absolute Neuts (auto) 5.6, Absolute Lymphs (auto) 2.32, Nucleated RBC % 0, Sodium 140, Potassium 3.6, Chloride 109 H, Carbon Dioxide 26.0, Anion Gap 5, BUN 20 H, Creatinine 0.87, Estim Creat Clear Calc 73.41, Est GFR (MDRD) Af Amer 85, Est GFR (MDRD) Non-Af 70, BUN/Creatinine Ratio 23.1 H, Glucose 273 H, Calcium 8.8, Troponin I High Sens 152 H* Imaging Radiology Impression Chest X-Ray 04/05/23 21:16 IMPRESSION: Decreased inspiration with vascular crowding and mild bilateral mid lower lung atelectasis. Otherwise no acute cardiac pulmonary disease. Electronically Signed: Kandace Perez MD at 21:34 EST , Assessment & Plan Assessment/Plan (1) NSTEMI, initial episode of care: PLAN: Plan The patient is a 63 y/o F w/ PMHx: PAF, PAD, Obesity, Hx VTE (DVT), Chronic anemia, Hx CVA with chronic dysarthria, Hx NH Lymphoma, Diabetes mellitus type II, MARLEN, HTN, HLD, Hx NSTEMI/CAD s/p CABG who presents to the [facility] ED on 04/05/23 with history of onset of chest discomfort with left upper extremity involvement starting approximately 6:30 in the evening on day of presentation with no associated nausea or emesis nor dyspnea with unchanged chronic cough describing the discomfort in her chest as a pressure with more discomfort in the left arm which is new and occurred while she was sitting in bed at rest and given that itwas ongoing and had lasted at least an hour prompted to eventually call EMS withdiscomfort resolved upon and eventual ED arrival. #1. Chest Pain w/ Acute NSTEMI: EKG in ED w/ sinus tachycardia with no acute evidence of ischemia, CXR w/ no acute cardiopulmonary findings, Trop elevated, 152. Will admit to PCU, maintain on a monitored bed, continue serial cardiac enzymes and EKGs. Obtain magnesium level upon admission. Continue medical management w/ asa, BB, statin w/ AM FLP. ECHO requested. Will temporally hold home Eliquis and may consider transition to heparin drip at next dose due; however, current Cardiology per discussion with ED recommended not to start. Cardiology consulted. Maintain NPO after midnight pending their evaluation. ASA,NG. #2. PAD: Following with vascular surgery, per most recent prior note symptoms mild with recommended continued structured exercise, continue aspirin, statin, metoprolol, losartan home regimen. Will temporally hold home Eliquis and may consider transition to heparin drip at next dose due; however, current Cardiology per discussion with ED recommended not to start. #3. CAD: s/p CABG 2003 w/ BAUM to the LAD and a saphenous vein graft to circumflex artery with most recent prior cardiology note noting that the distal RCA was not bypassed, last noted cardiac catheterization 07/2018 with circumflex artery occluded, RCA occluded with BAUM to LAD patent, saphenous vein graft to circumflex patent, collateral flow noted left to right with EF at that time 60% with inferior basilar wall motion abnormalities. Will temporally hold home Eliquis and may consider transition to heparin drip at next dose due; however, current Cardiology per discussion with ED recommended not to start. Continue asa, statin, metoprolol, losartan home regimen. #4. History CVA: Patient status post CVA left thalamic extending to the left cerebral peduncle 12/2018 with residual dysarthria, continue aspirin, statin, hypertensive regimen, diabetic regimen with adjustments as noted. Will temporally hold home Eliquis and may consider transition to heparin drip at nextdose due; however, current Cardiology per discussion with ED recommended not to start. #5. PAF: 06/05/2020 echocardiogram with EF 55%, trivial MVI. Will temporally hold home Eliquis and may consider transition to heparin drip at next dose due; however, current Cardiology per discussion with ED recommended not to start. #6. Diabetes mellitus type II: Hold oral home regimen, continue home insulin regimen, ADA diet until n.p.o. status, accu checks w/ ISS. #7. Hypertension: Continue home regimen including metoprolol, losartan, Lasix, PRN hydralazine. #8. Hyperlipidemia: Continue home statin regimen. AM FLP. #9. Obesity: Weight loss and lifestyle changes encouraged. #10. History of VTE: Patient with history of DVT, temporally holding oral Eliquis given presentation, may consider transition to heparin drip at next dosedue; however, current Cardiology per discussion with ED recommended not to start. #11. History non-Hodgkin's lymphoma: s/p 6 cycles of R-CHOP, finished 09/2012, considered in remission, encouraged continued outpatient follow-up with Oncologyas previously arranged. #12. MARLEN: Not using CPAP, notes used for 1 year and did not feel it was helpingthus stopped. Encouraged reconsideration. #13. DVT prophylaxis: Will temporally hold home Eliquis and may consider transition to heparin drip at next dose due; however, current Cardiology per discussion with ED recommended not to start. SCDs. #14. CODE status: Patient HCPOA and LW are not in place. She notes her would be her decision maker if she was unable. Discussed CODE status at length including difference between FULL code, DNR-CCA and DNR-CC status. Following discussions about the differences in these status, requested Full Code status. Advanced Care Planning Face to Face Time: 16 minutes. Charges/Coding Visit Charges Inpatient E&M: 54587 Init Hosp L3 Procedures Hospitalists Procedures: 07068 Advncd Care Plan 30 Min 04/05/23 2351 <Electronically signed by Myla Lopez MD> Cosigner Signature (if applicable): CC: Dr. Myla Lopez MD; Dr. Fara Bernal DO~ Signed [facility] Work Phone: 1(314) 234-791302-21-2024 Discharge summary Author Kaden Gardiner [facility] April 06, 2023 12:07am Note Date/Time April 05, 2023 8:53pm [facility] Medical Records Department [address] [place] [address] Emergency Department Summary 04/05/23 MR#: [id number] Acct: [id number] Name: JOSH GRAY Rep #:[id number] : 1960 63 From: Kaden Gardiner MD PCP: Dr. Fara Bernal DO Status:ADM IN Location: [place] [address] HPI History of Present Illness Chief Complaint: Chest Pain Narrative Narrative: 63-year-old female past medical history of coronary artery disease and previous MD without stenting, CVA, atrial fibrillation, on Eliquis presents with chest pain and left arm pain since around 630 this evening, almost 2 hours ago. She denies any nausea or vomiting. No swelling of her legs, no fevers or chills, noshortness of breath. She has a chronic cough. She states that she has had history of chest pain because 10 years ago she had a port in her chest, and sometimes that gives her problems. She also has problems with memory from a CVAremotely years back. She presents because of the left-sided chest pain and pressure that she was having, and states that her entire arm had pain in it. This was new for her. This lasted approximately an hour and a half while she was sitting in bed. She states that it lasted an hour and they decided to call EMS, and it resolved upon arrival here. No other exacerbating or alleviating factors. This is not how she felt when she had her prior MD. She states she never really had chest or arm pain at that time. [facility] Medical History (Updated 04/05/23 @ 23:[address] Myla Lopez MD) Anemia Arthritis Chronic diastolic (congestive) heart failure CVA (cerebral vascular accident) (12/14/18) Diabetic retinopathy associated with type 2 diabetes mellitus Dysarthria Dyspnea Essential (primary) hypertension History of deep venous thrombosis (DVT) of distal vein of left lower extremity (04/13/13) History of non-Hodgkin's lymphoma (2012) History of non-ST elevation myocardial infarction (NSTEMI) (04/08/13) Hyperlipidemia IBS (irritable bowel syndrome) Incontinent of urine 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) Limb weakness neck/back pain Obesity MARLEN (obstructive sleep apnea) PAF (paroxysmal atrial fibrillation) Polycystic ovaries Shoulder pain Skin lesion of left lower extremity Slurred speech Type 2 diabetes mellitus Home Medications cholecalciferol (vitamin D3) 50 mcg (2,000 unit) capsule 2,000 units PO DAILY 05/20/19 [History Last Taken Unknown] albuterol sulfate 90 mcg/actuation aerosol inhaler (Proventil HFA) 2 puff inhalation Q6H PRN Sob &/Or Wheezing 08/14/19 [History Last Taken Unknown] metformin 1,000 mg tablet 1,000 mg PO BID 04/02/20 [History Last Taken Unknown] pen needle, diabetic 31 gauge x 5/16 #1,200 ea 04/02/20 [History Last Taken Unknown] furosemide 40 mg tablet 40 mg PO QAM #90 tabs 05/17/21 [Rx Last Taken Unknown] losartan 50 mg tablet 50 mg PO DAILY #90 tabs 07/26/21 [Rx Last Taken Unknown] flash glucose sensor (FreeStyle Moses 14 Day Sensor kit) #1 ea 10/19/21 [History Last Taken Unknown] insulin degludec 100 unit/mL (3 mL) subcutaneous pen (Tresiba FlexTouch U-100 insulin) 50 unit subcut DAILY 10/19/21 [History Last Taken Unknown] apixaban 5 mg tablet (Eliquis) See Rx Instructions .Route .COMPLEX #60 TABLETS 03/24/22 [Rx Last Taken Unknown] atorvastatin 40 mg tablet (Lipitor) 40 mg PO DAILY #90 tabs 08/23/22 [Rx Last Taken Unknown] insulin aspart U-100 100 unit/mL (3 mL) subcutaneous pen 30 unit subcut .WGHFMKM27/11/23 [History Last Taken Unknown] insulin aspart U-100 100 unit/mL (3 mL) subcutaneous pen 40 unit subcut BREAKFAST 08/23/22 [History Last Taken Unknown] metoprolol succinate 50 mg tablet,extended release 24 hr 50 mg PO DAILY #90 tabs08/23/22 [Rx Last Taken Unknown] tramadol 50 mg tablet 50 mg PO Q6H 3 days #12 tabs 03/18/23 [Rx Last Taken Unknown] amlodipine 2.5 mg tablet See Rx Instructions .Route .COMPLEX #90 tabs 03/22/23 [Rx Last Taken Unknown] Allergy/AdvReac Type Severity Reaction Status Date / Time Penicillins Allergy Severe Rash Verified 04/05/23 20:32 grass pollen Allergy Intermediate Other Verified 04/05/23 20:32 tree and shrub pollen Allergy Intermediate Other Verified 04/05/23 20:32 lisinopril AdvReac Intermediate Other Verified 04/05/23 20:32 hydrocodone bitartrate AdvReac Mild Unknown Verified 04/05/23 20:32 [From Vicodin] losartan AdvReac Heart Burn Verified 04/05/23 20:32 Family History Father , 65 Diabetes Hypertension cabg Mother , Age 65 Hypertension Renal failure Sister Cancer Sister Diabetes Cardiomegaly Surgical History Atherosclerotic heart disease of [place] coronary artery without angina pectoris H/O coronary artery bypass surgery (04/10/13) History of left heart catheterization (07/26/18) Social History Smoking Status: Never smoker alcohol intake: never substance use type: does not use caffeine: Yes Type: coffee Number of servings: 2 ROS ROS ED ROS Narrative Constitutional: No fever, no chills. HEENT: No sore throat. No neck pain. No loss of vision. No rhinorrhea. Cardiovascular: Positive for left-sided chest pain. Arm pain. No palpitations. No pedal edema. Respiratory: No cough, no shortness of breath. Abdominal: No abdominal pain. No nausea. No vomiting. Genitourinary: No dysuria. No hematuria. Musculoskeletal: No myalgias. No arthralgias. Neurologic: No headaches. No dizziness. No lightheadedness. Skin: No rash. No change in color. Psychiatric: No depression. No anxiety. EXAM Physical Exam Narrative Exam Narrative: Afebrile. Vital signs noted. HEENT: Normocephalic. Atraumatic. PERRL, EOMI. Neck soft and supple. No pointtenderness or step off. Cardiovascular: Regular rate and rhythm. No murmurs, rubs, or gallops appreciated. Respiratory: No tachypnea. Lungs clear to auscultation bilaterally. Gastrointestinal: Abdomen soft, nontender, with normoactive bowel sounds. No rebound or guarding. Neurological: Awake. Alert. Nonfocal, nonlateralizing. Skin: No rash. Normal color. No pallor. Musculoskeletal: No pedal edema. Full range of motion extremities. Const Vital Signs: 04/05/23 20:33 04/05/23 20:36 04/05/23 21:17 Temperature 97.9 F 97.9 F Temperature Source Oral Oral Pulse Rate 83 83 Respiratory Rate 16 16 Blood Pressure 173/102 H 176/102 H Blood Pressure Mean 125 126 Pulse Ox 96 96 Oxygen Delivery Method Room Air Room Air Room Air Heart Score History: Slightly/Non-Suspicious ECG: Normal Age: >45 - <65 years Risk Factors: >/= 3 Risk Factors or History of CAD Score: 3 MDM MDM MDM Narrative Medical decision making narrative: The differential diagnosis is acute coronary syndrome versus pulmonary embolism versus aortic dissection versus nonspecific chest pain. I have low suspicion for pulmonary embolism because she is already on anticoagulants and she is not tachycardic, she is not hypoxic either. I do not feel D-dimer or CT of the chest is indicated because she is already on anticoagulants. I reviewed the prehospital EKG which showed sinus tachycardia in the 120's. However, on the monitor here, her heart rate is in the 80s. No STEMI on her prehospital EKG. Ihave low suspicion for aortic dissection as she has no tearing back pain and equal pulses bilaterally. I do feel that serial enzymes are warranted along with chest pain workup. She will be given aspirin. She had already received 3 nitroglycerin per squad and is currently pain-free. I reviewed her laboratory work here today and she has a normal white count of 8.9, hemoglobin 12.4, hematocrit 39.2, platelet count normal at 226. Sodium is normal at 140 with potassium 3.6, chloride elevated at 109 which I think is nonspecific, BUN also elevated at 20 with a normal creatinine of 0.87. Glucose is elevated at 273 but I have low concern for diabetic ketoacidosis with her normal anion gap. Of significance is her troponin which is elevated at 152. Chest x-ray in 1 view interpreted by myself shows no pneumothorax or consolidation. As she is on Eliquis, I will refrain from using heparin. 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 Patient was discussed with thehospitalist, Dr. Myla Lopez, for admission. Her second troponin is pending. Disposition is admitted in stable condition. History & Record Review Discussion w/independent historian: Patient and Family Lab Data Attestation: I reviewed the patient's lab results. Labs: Laboratory Results - last 24 hr 04/05/23 21:03 WBC 8.9 RBC 4.64 Hgb 12.4 Hct 39.2 MCV 84.5 MCH 26.7 L MCHC 31.6 L RDW Std Deviation 48.5 H RDW Coeff of Dutch 15.9 H Plt Count 226 MPV 11.8 Immature Gran % (Auto) 0.200 Neut % (Auto) 62.9 Lymph % (Auto) 26.0 [place] % (Auto) 6.3 Eos % (Auto) 3.6 Baso % (Auto) 1.0 Absolute Neuts (auto) 5.6 Absolute Lymphs (auto) 2.32 Nucleated RBC % 0 Sodium 140 Potassium 3.6 Chloride 109 H Carbon Dioxide 26.0 Anion Gap 5 BUN 20 H Creatinine 0.87 Estim Creat Clear Calc 73.41 Est GFR (MDRD) Af Amer 85 Est GFR (MDRD) Non-Af 70 BUN/Creatinine Ratio 23.1 H Glucose 273 H Calcium 8.8 Troponin I High Sens 152 H* Radiography Diagnostic Testing: Clinical Impression(s) from Imaging Studies Chest X-Ray 04/05/23 21:16 IMPRESSION: Decreased inspiration with vascular crowding and mild bilateral mid lower lung atelectasis. Otherwise no acute cardiac pulmonary disease. Electronically Signed: Kandace Perez MD at 21:34 EST , Discharge Plan Triage Chief Complaint: Chest Pain ED Provider: Kaden Gardiner Dx/Rx/DC Orders Primary Care Provider: Fara Bernal What to do if you have Problems For any increased pain, shortness of breath, bleeding, nausea or vomiting, chestpain, or any unexpected problems, contact your Primary Care Provider. Call [facility] ([phone]) or report to the closest Emergency Room. Call 911 if necessary. 04/06/236 <Electronically signed by Kaden Gardiner MD> Cosigner Signature (if applicable): CC: Dr. Fara Bernal, ~ Signed [facility] Work Phone: 1(595) 368-371602-26-2014 Evaluation note* Diagnosis Onset Date Resolution Status NSTEMI, initial episode of care acute Essential (primary) hypertension chronic Hyperlipidemia chronic H/O coronary artery bypass surgery April 10, 2013 resolved [facility] Work Phone: 1([phone]) 895-938702-26-2014 Evaluation note* Diagnosis Onset Date Resolution Status H/O coronary artery bypass surgery April 10, 2013 resolved NSTEMI, initial episode of care resolved [facility] Work Phone: 1(242) 668-462102-26-2014 Evaluation note* Diagnosis Onset Date Resolution Status H/O coronary artery bypass surgery April 10, 2013 resolved NSTEMI, initial episode of care resolved Left shoulder strain acute Diminished pulses in lower extremity acute PAF (paroxysmal atrial fibrillation) acute Atherosclerotic heart diseas e of [place] coronary artery without angina pectoris chronic MARLEN (obstructive sleep apnea) chronic [facility] Work Phone: 1(553) 759-793902-26-2014 Evaluation note* Diagnosis Onset Date Resolution Status H/O coronary artery bypass surgery April 10, 2013 resolved NSTEMI, initial episode of care resolved Left shoulder strain acute Diminished pulses in lower extremity acute PAF (paroxysmal atrial fibrillation) acute Atherosclerotic heart diseas e of [place] coronary artery without angina pectoris chronic MARLEN (obstructive sleep apnea) chronic Impingement of left shoulder acute Left shoulder pain acute Impingement of left shoulder acute Left rotator cuff tear acute Left shoulder pain acute [facility] Work Phone: Consult [facility] April 07, 2023 11:21am Note Date/Time April 07, 2023 11:21am [facility] Medical Records Department [address] [place] [address] Counseling Note - Pharmacy 04/07/23 1121 MR#: [id number] Acct: [id number] Name: JOSH GRAY Rep #:[id number] : 1960 63 From: Alexander Hawkins PCP: Dr. Fara Bernal, DO Status:ADM IN Y Location: [place] [id number] has performed discharge medication reconciliation and counseling for this patient. The patient's discharge medication list was reviewed for discrepancies and discrepancies were resolved. The patient was counseled on the following discharge medications and changes in medications for homegoing were reviewed. The Reason for Use, instructions for use, and potential side effects were reviewed for all new medications. The patient's questions regarding all of their medications were answered. 1. Amlodipine 10 mg PO daily. The patient was able to verbally demonstrate an understanding of their dischargemedications. The patient was counselled on new medication by pharmacy buyer Tyler. Medications at Discharge Home Medications cholecalciferol (vitamin D3) 50 mcg (2,000 unit) capsule 2,000 units PO DAILY vitamin 05/20/19 albuterol sulfate 90 mcg/actuation aerosol inhaler (Proventil HFA) 2 puff inhalation Q6H PRN Sob &/Or Wheezing 08/14/19 metformin 1,000 mg tablet 1,000 mg PO BID type II diabetes 04/02/20 pen needle, diabetic 31 gauge x 5/16 #1,200 ea 04/02/20 furosemide 40 mg tablet 40 mg PO QAM water pill #90 tabs 05/17/21 losartan 50 mg tablet 50 mg PO DAILY bp #90 tabs 07/26/21 flash glucose sensor (FreeStyle Moses 14 Day Sensor kit) #1 ea 10/19/21 insulin degludec 100 unit/mL (3 mL) subcutaneous pen (Tresiba FlexTouch U-100 insulin) 50 unit subcut DAILY type II diabetes 10/19/21 atorvastatin 40 mg tablet (Lipitor) 40 mg PO DAILY cholesterol #90 tabs 08/23/22 insulin aspart U-100 100 unit/mL (3 mL) subcutaneous pen 30 unit subcut .COMPLEXtype II diabetes 08/23/22 insulin aspart U-100 100 unit/mL (3 mL) subcutaneous pen 40 unit subcut BREAKFAST DM II 08/23/22 metoprolol succinate 50 mg tablet,extended release 24 hr 50 mg PO DAILY #90 tabs08/23/22 apixaban 5 mg tablet (Eliquis) 5 mg PO Q12H heart 04/06/23 amlodipine 10 mg tablet 10 mg PO DAILY #30 tabs 04/07/23 04/07/23 1121 <Electronically signed by Alexander winter> Date _ Alexander Geiger Signature (if applicable): Date CC: ~ Signed [facility] Work Phone: Discharge summary Author Ellen [facility] April 07, 2023 11:11am Note Date/Time April 07, 2023 11:11am [facility] Medical Records Department [address] [place] [address] Instructions for Home/Discharge Instructions 04/07/23 1111 MR#: [id number] Acct: [id number] Name: JOSH GRAY Rep #:[id number] : 1960 63 From: Ellen Conway MD PCP: Dr. Fara Bernal, DO Status:ADM IN Discharge Instructions Diet Discharge Diet: Low fat / Low cholesterol Activity Discharge Activity: Return to Normal Activity Weight Bearing Status: Weight bearing as tolerated Dressing / Incision Call your doctor if you observe: Fever of 101 or Higher, Shortness of breath, Dizziness, Swelling in the ankles and Chest pain Follow Up Care Test Results: Test results from this visit will be discussed in further detail at your follow- up appointment, if applicable. Discharge Plan Admission Admit Date/Time: 04/05/23 23:30 Primary Reason for Your Visit: Chest pain, uncontrolled hypertension. Attending Provider: Ellen Conway Primary Care Provider: Fara Bernal Consulting Providers: Sheng Pritchard; Myla Lopez Discharge Orders/Prescriptions Prescriptions: New amlodipine 10 mg Tablet 10 mg PO DAILY Qty: 30 2RF Continued cholecalciferol (vitamin D3) 50 mcg (2,000 unit) capsule 2,000 units PO DAILY Patient Comments: TAKE 1 CAPSULE BY MOUTH EVERY DAY insulin degludec [Tresiba FlexTouch U-100] 100 unit/mL (3 mL) insulin pen 50 unit SC DAILY insulin aspart U-100 100 unit/mL (3 mL) insulin pen 40 unit subcut BREAKFAST Rx Instructions: sliding scale albuterol sulfate [Proventil HFA] 90 mcg/actuation HFA aerosol inhaler 2 puff INHALATION Q6H PRN (Reason: Sob &/Or Wheezing) metformin 1,000 mg tablet 1,000 mg PO BID (DME) pen needle, diabetic 31 gauge x 5/16 needle See Rx Instructions .ROUTE .MEDSUPPLY Qty: 1200 Patient Comments: USE DIRECTED 4 TIMES DAILY WITH INSULIN DX E11.9 Rx Instructions: As directed losartan 50 mg tablet 50 mg PO DAILY Qty: 90 3RF (DME) FreeStyle Moses 14 Day Sensor Kit See Rx Instructions .ROUTE .MEDSUPPLY Qty: 1 Patient Comments: USE 1 SENSOR EVERY 14 DAYS Rx Instructions: As directed insulin aspart U-100 100 unit/mL (3 mL) insulin pen 30 unit subcut .COMPLEX Rx Instructions: 30 units subcutaneously 30 units at lunch and dinner; Eliquis 5 mg tablet 5 mg PO Q12H Rx Instructions: TAKE 1 TABLET BY MOUTH TWICE A DAY furosemide 40 mg tablet 40 mg PO QAM Qty: 90 3RF metoprolol succinate 50 mg tablet extended release 24 hr 50 mg PO DAILY Qty: 90 3RF Patient Comments: patient unsure if she is taking this at home or not atorvastatin [Lipitor] 40 mg tablet 40 mg PO DAILY Qty: 90 3RF Discontinued amlodipine 2.5 mg tablet 2.5 mg PO DAILY Rx Instructions: TAKE 1 TABLET BY MOUTH EVERY DAY Referrals / Follow Up: Sheng Pritchard MD [Med Staff - Active Staff] - Within 1 Month Fara Bernal DO [Primary Care Provider] - Within 1 Week Disposition Disposition (needs filled in before D/C Order can be placed): Home, Self Care 04/07/23 1111<Electronically signed by Ellen Conway MD>Ellen Conway MD CC: Dr. Myla Lopez MD; Dr. Sheng Pritchard MD; Dr. Fara Bernal DO ~ Signed [facility] Work Phone: evaluation note* Diagnosis Onset Date Resolution Status Diminished pulses in lower extremity acute Atherosclerotic heart diseas e of [place] coronary artery without angina pectoris chronic Essential (primary) hypertension chronic Hyperlipidemia chronic MARLEN (obstructive sleep apnea) chronic [facility] Work Phone: Evaluation note* Diagnosis Onset Date Resolution Status Abnormal ankle brachial index (GARCÍA) acute Peripheral arterial disease [facility] Work Phone: evaluation note* Diagnosis Onset Date Resolution Status Peripheral arterial disease [facility] Work Phone: evaluation note* Diagnosis Onset Date Resolution Status NSTEMI, initial episode of care [facility] Work Phone: Evaluation noteNo assessment information available [facility] Work Phone: History and physical note Author [facility] April 05, 2023 11:51pm Note Date/Time April 05, 2023 11:33pm [facility] Medical Records Department [address] [place] [id number] H&P Exam - Hospitalist 04/05/23 2325 MR#: [id number] Acct: [id number] Name: JOSH GRAY Rep #:[id number] : 1960 63 From: Myla Lopez MD PCP: Dr. Fara Bernal DO Status:ADM IN Location: [place] [id number] HPI - General General Date of Admission: 04/05/23 Date of Service: 04/05/23 Chief Complaint: Chest pain HPI Narrative The patient is a 63 y/o F w/ PMHx: PAF, PAD, Obesity, Hx VTE (DVT), Chronic anemia, Hx CVA with chronic dysarthria, Hx NH Lymphoma, Diabetes mellitus type II, MARLEN, HTN, HLD, Hx NSTEMI/CAD s/p CABG who presents to the [facility] ED on 04/05/23 with history of onset of chest discomfort with left upper extremity involvement starting approximately 6:30 in the evening on day of presentation with no associated nausea or emesis nor dyspnea with unchanged chronic cough describing the discomfort in her chest as a pressure with more discomfort in the left arm which is new and occurred while she was sitting in bed at rest and given that itwas ongoing and had lasted at least an hour prompted to eventually call EMS withdiscomfort resolved upon and eventual ED arrival. She notes the discomfort/pressure in her chest and discomfort in her LUE at its worst was 8/10in severity. She again confirms she is chest pain free currently. Workup in the ED included T97.9, heart rate 83, BP 173/102, respiratory rate 16, 96% on room air, CBC with WC 8.9, hemoglobin 12.4, platelet 226 without marked shift, BMP with chloride 109, BUN/creatinine 20/0.89, glucose 273 otherwise not marked appearing, troponin 152, chest x-ray with decreased infiltration with vascular crowding and mild bilateral mid to lower lung atelectasis otherwise no acute cardiopulmonary findings, EKG with sinus tachycardia with no acute evidence of ischemia. In the ED patient administered FS ASA. ED discussed case with Dr. Pritchard. [facility] Medical History (Updated 04/05/23 @ 23:[address] Myla Lopez MD) Anemia Arthritis Chronic diastolic (congestive) heart failure CVA (cerebral vascular accident) (12/14/18) Diabetic retinopathy associated with type 2 diabetes mellitus Dysarthria Dyspnea Essential (primary) hypertension History of deep venous thrombosis (DVT) of distal vein of left lower extremity (04/13/13) History of non-Hodgkin's lymphoma (2012) History of non-ST elevation myocardial infarction (NSTEMI) (04/08/13) Hyperlipidemia IBS (irritable bowel syndrome) Incontinent of urine 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) Limb weakness neck/back pain Obesity MARLEN (obstructive sleep apnea) PAF (paroxysmal atrial fibrillation) Polycystic ovaries Shoulder pain Skin lesion of left lower extremity Slurred speech Type 2 diabetes mellitus Home Medications cholecalciferol (vitamin D3) 50 mcg (2,000 unit) capsule 2,000 units PO DAILY 05/20/19 [History Last Taken Unknown] albuterol sulfate 90 mcg/actuation aerosol inhaler (Proventil HFA) 2 puff inhalation Q6H PRN Sob &/Or Wheezing 08/14/19 [History Last Taken Unknown] metformin 1,000 mg tablet 1,000 mg PO BID 04/02/20 [History Last Taken Unknown] pen needle, diabetic 31 gauge x 16 #1,200 ea 04/02/20 [History Last Taken Unknown] furosemide 40 mg tablet 40 mg PO QAM #90 tabs 05/17/21 [Rx Last Taken Unknown] losartan 50 mg tablet 50 mg PO DAILY #90 tabs 07/26/21 [Rx Last Taken Unknown] flash glucose sensor (FreeStyle Moses 14 Day Sensor kit) #1 ea 10/19/21 [History Last Taken Unknown] insulin degludec 100 unit/mL (3 mL) subcutaneous pen (Tresiba FlexTouch U-100 insulin) 50 unit subcut DAILY 10/19/21 [History Last Taken Unknown] apixaban 5 mg tablet (Eliquis) See Rx Instructions .Route .COMPLEX #60 TABLETS 03/24/22 [Rx Last Taken Unknown] atorvastatin 40 mg tablet (Lipitor) 40 mg PO DAILY #90 tabs 08/23/22 [Rx Last Taken Unknown] insulin aspart U-100 100 unit/mL (3 mL) subcutaneous pen 30 unit subcut .JFJHHXT61/11/23 [History Last Taken Unknown] insulin aspart U-100 100 unit/mL (3 mL) subcutaneous pen 40 unit subcut BREAKFAST 08/23/22 [History Last Taken Unknown] metoprolol succinate 50 mg tablet,extended release 24 hr 50 mg PO DAILY #90 tabs08/23/22 [Rx Last Taken Unknown] tramadol 50 mg tablet 50 mg PO Q6H 3 days #12 tabs 03/18/23 [Rx Last Taken Unknown] amlodipine 2.5 mg tablet See Rx Instructions .Route .COMPLEX #90 tabs 03/22/23 [Rx Last Taken Unknown] Allergy/AdvReac Type Severity Reaction Status Date / Time Penicillins Allergy Severe Rash Verified 04/05/23 20:32 grass pollen Allergy Intermediate Other Verified 04/05/23 20:32 tree and shrub pollen Allergy Intermediate Other Verified 04/05/23 20:32 lisinopril AdvReac Intermediate Other Verified 04/05/23 20:32 hydrocodone bitartrate AdvReac Mild Unknown Verified 04/05/23 20:32 [From Vicodin] losartan AdvReac Heart Burn Verified 04/05/23 20:32 Family History Father , 65 Diabetes Hypertension cabg Mother , Age 65 Hypertension Renal failure Sister Cancer Sister Diabetes Cardiomegaly Surgical History Atherosclerotic heart disease of [place] coronary artery without angina pectoris H/O coronary artery bypass surgery (04/10/13) History of left heart catheterization (07/26/18) Social History Smoking Status: Never smoker alcohol intake: never substance use type: does not use caffeine: Yes Type: coffee Number of servings: 2 ROS ROS Narrative Admission Review of Systems: CONSTITUTIONAL: No weight loss, fever, chills, + weakness or fatigue. HEENT: Eyes: No visual loss, blurred vision, double vision or yellow sclerae. Ears, Nose, Throat: No hearing loss, sneezing, congestion, runny nose or sore throat. SKIN: No rash or itching, lesions, wounds. CARDIOVASCULAR: + chest pain, chest pressure or chest discomfort. No palpitations, edema, orthopnea, syncopal events. RESPIRATORY: + Chronic cough. No shortness of breath, no marked productive sputum, wheezing, hemoptysis. GASTROINTESTINAL: No anorexia, nausea, vomiting or diarrhea, abdominal pain, melena, BRBPR. GENITOURINARY: No dysuria, frequency, urgency or retention. NEUROLOGICAL: + History of CVA with chronic dysarthria. No headache, dizziness,syncope, paralysis, ataxia, numbness or tingling in the extremities, focal weakness, change in bowel or bladder control, seizure. MUSCULOSKELETAL: + muscle, back pain, joint pain or stiffness. HEMATOLOGIC: No anemia. Easy bleeding/bruising. LYMPHATICS: No enlarged nodes. No history of splenectomy. PSYCHIATRIC: No history of depression or anxiety. ENDOCRINOLOGIC: No reports of sweating, cold or heat intolerance. No polyuria orpolydipsia. ALLERGIES: No history of asthma, hives, eczema or rhinitis. Vital Signs Vital Signs Vital Signs: 04/05/23 20:33 04/05/23 20:36 04/05/23 21:17 Temperature 97.9 F 97.9 F Temperature Source Oral Oral Pulse Rate 83 83 Respiratory Rate 16 16 Blood Pressure 173/102 H 176/102 H Blood Pressure Mean 125 126 Pulse Ox 96 96 Oxygen Delivery Method Room Air Room Air Room Air Weight Weight: 211 lb 6.773 oz Body Mass Index (BMI) 36.3 Physical Exam Narrative Physical Examination: General: Awake, alert, oriented x 3 and cooperative, seated upright in the ED bed in no apparent distress, currently chest pain free. Skin: Normal color, normal turgor, no icterus, no cyanosis. HEENT: AT/NC, EOMI, PERRLA, mildly dry MM, no carotid bruits or JVD noted. Lungs: CTA bilaterally, moderate effort, mild decrease BL bases, no rales, ronchi or wheezing. Heart: Regular rate and rhythm; no gallop, rub audible. Abdomen: Soft, obese, NTTP, ND, mildly hyperactive BS, no HSM. Extremities: No cyanosis, clubbing, or edema. Neurological: Patient awake, alert, oriented as noted, cognitive function intact; pupils equally reactive to light and accommodation, cranial nerves grossly normal, moving all 4 extremities, history prior CVA w/ chronic dysarthria but minimally noted, no focal deficits, strength mildly globally decreased secondary to acute presentation complaints. Psychiatric: Affect appears fatigued otherwise normal, no acute evidence of depressive or anxiety feelings. Results Lab / Micro Data 04/05/23 21:03 04/05/23 21:03 Labs: Laboratory Results - last 24 hr 04/05/23 21:03: WBC 8.9, RBC 4.64, Hgb 12.4, Hct 39.2, MCV 84.5, MCH 26.7 L, MCHC 31.6 L, RDW Std Deviation 48.5 H, RDW Coeff of Dutch 15.9 H, Plt Count 226, MPV 11.8, Immature Gran % (Auto) 0.200, Neut % (Auto) 62.9, Lymph % (Auto) 26.0,Corson % (Auto) 6.3, Eos % (Auto) 3.6, Baso % (Auto) 1.0, Absolute Neuts (auto) 5.6, Absolute Lymphs (auto) 2.32, Nucleated RBC % 0, Sodium 140, Potassium 3.6, Chloride 109 H, Carbon Dioxide 26.0, Anion Gap 5, BUN 20 H, Creatinine 0.87, Estim Creat Clear Calc 73.41, Est GFR (MDRD) Af Amer 85, Est GFR (MDRD) Non-Af 70, BUN/Creatinine Ratio 23.1 H, Glucose 273 H, Calcium 8.8, Troponin I High Sens 152 H* Imaging Radiology Impression Chest X-Ray 04/05/23 21:16 IMPRESSION: Decreased inspiration with vascular crowding and mild bilateral mid lower lung atelectasis. Otherwise no acute cardiac pulmonary disease. Electronically Signed: Kandace Perez MD at 21:34 EST , Assessment & Plan Assessment/Plan (1) NSTEMI, initial episode of care: PLAN: Plan The patient is a 63 y/o F w/ PMHx: PAF, PAD, Obesity, Hx VTE (DVT), Chronic anemia, Hx CVA with chronic dysarthria, Hx NH Lymphoma, Diabetes mellitus type II, MARLEN, HTN, HLD, Hx NSTEMI/CAD s/p CABG who presents to the [facility] ED on 04/05/23 with history of onset of chest discomfort with left upper extremity involvement starting approximately 6:30 in the evening on day of presentation with no associated nausea or emesis nor dyspnea with unchanged chronic cough describing the discomfort in her chest as a pressure with more discomfort in the left arm which is new and occurred while she was sitting in bed at rest and given that itwas ongoing and had lasted at least an hour prompted to eventually call EMS withdiscomfort resolved upon and eventual ED arrival. #1. Chest Pain w/ Acute NSTEMI: EKG in ED w/ sinus tachycardia with no acute evidence of ischemia, CXR w/ no acute cardiopulmonary findings, Trop elevated, 152. Will admit to PCU, maintain on a monitored bed, continue serial cardiac enzymes and EKGs. Obtain magnesium level upon admission. Continue medical management w/ asa, BB, statin w/ AM FLP. ECHO requested. Will temporally hold home Eliquis and may consider transition to heparin drip at next dose due; however, current Cardiology per discussion with ED recommended not to start. Cardiology consulted. Maintain NPO after midnight pending their evaluation. ASA,NG. #2. PAD: Following with vascular surgery, per most recent prior note symptoms mild with recommended continued structured exercise, continue aspirin, statin, metoprolol, losartan home regimen. Will temporally hold home Eliquis and may consider transition to heparin drip at next dose due; however, current Cardiology per discussion with ED recommended not to start. #3. CAD: s/p CABG 2004 w/ BAUM to the LAD and a saphenous vein graft to circumflex artery with most recent prior cardiology note noting that the distal RCA was not bypassed, last noted cardiac catheterization 07/2018 with circumflex artery occluded, RCA occluded with BAUM to LAD patent, saphenous vein graft to circumflex patent, collateral flow noted left to right with EF at that time 60% with inferior basilar wall motion abnormalities. Will temporally hold home Eliquis and may consider transition to heparin drip at next dose due; however, current Cardiology per discussion with ED recommended not to start. Continue asa, statin, metoprolol, losartan home regimen. #4. History CVA: Patient status post CVA left thalamic extending to the left cerebral peduncle 12/2018 with residual dysarthria, continue aspirin, statin, hypertensive regimen, diabetic regimen with adjustments as noted. Will temporally hold home Eliquis and may consider transition to heparin drip at nextdose due; however, current Cardiology per discussion with ED recommended not to start. #5. PAF: 06/05/2020 echocardiogram with EF 55%, trivial MVI. Will temporally hold home Eliquis and may consider transition to heparin drip at next dose due; however, current Cardiology per discussion with ED recommended not to start. #6. Diabetes mellitus type II: Hold oral home regimen, continue home insulin regimen, ADA diet until n.p.o. status, accu checks w/ ISS. #7. Hypertension: Continue home regimen including metoprolol, losartan, Lasix, PRN hydralazine. #8. Hyperlipidemia: Continue home statin regimen. AM FLP. #9. Obesity: Weight loss and lifestyle changes encouraged. #10. History of VTE: Patient with history of DVT, temporally holding oral Eliquis given presentation, may consider transition to heparin drip at next dosedue; however, current Cardiology per discussion with ED recommended not to start. #11. History non-Hodgkin's lymphoma: s/p 6 cycles of R-CHOP, finished 09/2012, considered in remission, encouraged continued outpatient follow-up with Oncologyas previously arranged. #12. MARLEN: Not using CPAP, notes used for 1 year and did not feel it was helpingthus stopped. Encouraged reconsideration. #13. DVT prophylaxis: Will temporally hold home Eliquis and may consider transition to heparin drip at next dose due; however, current Cardiology per discussion with ED recommended not to start. SCDs. #14. CODE status: Patient HCPOA and LW are not in place. She notes her would be her decision maker if she was unable. Discussed CODE status at length including difference between FULL code, DNR-CCA and DNR-CC status. Following discussions about the differences in these status, requested Full Code status. Advanced Care Planning Face to Face Time: 16 minutes. Charges/Coding Visit Charges Inpatient E&M: 37422 Init Hosp L3 Procedures Hospitalists Procedures: 57711 Advncd Care Plan 30 Min 04/05/23 2351 <Electronically signed by Myla Lopez MD> Cosigner Signature (if applicable): CC: Dr. Myla Lopez MD; Dr. Fara Bernal, DO~ Signed [facility] Work Phone: Reason for referral (narrative)No reason for referral information availableFranciscan Health [facility] Work Phone: Chief Complaint and Reason for Visit Chief Complaint 9 M FU Reason for Visit Diminished pulses in lower extremity Atherosclerotic heart disease of [place] coronary artery without angina pectoris Essential (primary) hypertension Hyperlipidemia MARLEN (obstructive sleep apnea) Chief Complaint 9 M FU HAND Reason for Visit Diminished pulses in lower extremity Atherosclerotic heart disease of [place] coronary artery without angina pectoris Essential (primary) hypertension Hyperlipidemia MARLEN (obstructive sleep apnea) Chief Complaint HAND 3 m fu DECREASED PEDAL PULSES Reason for Visit Diminished pulses in lower extremity Atherosclerotic heart disease of [place] coronary artery without angina pectoris Essential (primary) hypertension Hyperlipidemia MARLEN (obstructive sleep apnea) Chief Complaint DECREASED PEDAL PULS ES Peripheral vascular disease H35.82 Retinal ischemia Reason for Visit Abnormal ankle brach ial index (GARCÍA) Peripheral arterial disease Chief Complaint 3 M FU LAB WORK Reason for Visit Peripheral arterial disease Chief Complaint rt shoulder CHEST PAIN, NSTEMI Reason for Visit NSTEMI, initial epis ode of care Chief Complaint rt shoulder CHEST PAIN, NSTEMI CHEST PAIN, NSTEMI CHEST PAIN, NSTEMI Reason for Visit NSTEMI, initial epis ode of care Essential (primary) hypertension Hyperlipidemia H/O coronary artery bypass surgery Chief Complaint rt shoulder CHEST PAIN, NSTEMI CHEST PAIN, NSTEMI CHEST PAIN, NSTEMI CHEST PAIN, NSTEMI Reason for Visit H/O coronary artery bypass surgery NSTEMI, initial episode of care Chief Complaint rt shoulder CHEST PAIN, NSTEMI CHEST PAIN, NSTEMI CHEST PAIN, NSTEMI CHEST PAIN, NSTEMI L SHOULDER INJURY shoulder injury- LEFT S/P [facility] 04/07 Reason for Visit H/O coronary artery bypass surgery NSTEMI, initial episode of care Left shoulder strain Diminished pulses in lower extremity PAF (paroxysmal atrial fibrillation) Atherosclerotic heart disease of [place] coronary artery without angina pectoris MARLEN (obstructive sleep apnea) Chief Complaint rt shoulder CHEST PAIN, NSTEMI CHEST PAIN, NSTEMI CHEST PAIN, NSTEMI CHEST PAIN, NSTEMI L SHOULDER INJURY shoulder injury- LEFT S/P [facility] 04/07 LEFT SHOULDER JOINT DISORDERS LEFT SHOULDER L SHOULDER PAIN/IMPINGEMENT. 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 May 212024 10:16am erythema, swelling, pain- finger May 212024 10:45am Peripheral vascular disease May 23, 2024 8:32am Reason for Visit Admit Date Essential (primary) hypertension April 192024 8:38am PAF (paroxysmal atrial fibrillation) [facility] 2024 8:38am Peripheral arterial disease April 19, 8:38am Atherosclerotic heart diseas e of [place] coronary artery without angina pectoris April 19, 2024 8:38am MARLEN (obstructive sleep apnea) April 19, 2024 8:38am Hyperlipidemia April 19, 2024 8:38 am Swelling of right index finger May 10:16am Other specified peripheral vascular dise ases Lianne 10th, 2025 8:32am Chief Complaint Admit Date 1 YR F/U October 08, 2024 8: 30am Family History No Family History Records Found Relationship Condition Age at Onset Recorded Date/T karina father Diabetes mellitus Unknown Hypertension Unknown Unknown mother Hypertension Unknown Renal failure Unknown sister Malignant neoplasm Unknown sister Diabetes mellitus Unknown Cardiomegaly Unknown Advance Directives No Advanced Directives Records Found Advance Directive Response Recorded Date/ Time Advance Directives No January 10:14am Living Will No February 12 10:14am Power of Stonecutter No February 13, 2020 10:14am Advance Directive Response Recorded Date/ Time Advance Directives No January 10:14am Living Will No September 16, 2021 10:27am Power of Stonecutter No September 16 10:27am Advance Directive Response Recorded Date/ Time Advance Directives No January 9:14am Living Will No September 16, 2021 9:27am Power of Stonecutter No September 16 9:27am Advance Directive Response Recorded Date/ Time Advance Directives No January 9:14am Living Will No April 05 8:36pm Power of Stonecutter No April 05, 2023 8:36pm Advance Directive Response Recorded Date/ Time Advance Directives No January 9:14am Living Will No April 06 12:30am Power of Stonecutter No April 06, 2023 12:30am Advance Directive Response Recorded Date/ Time Advance Directives No January 10:14am Living Will No April 06 1:30am Power of Stonecutter No April 06, 2023 1:30am Advance Directive Response Recorded Date/ Time Advance Directives No January 10:14am Summary Purpose Additional Source Comments Source Comments (unrecognize d section and content) In the event this informatio n is protected by the Federal Confidentiality of Alcohol and Drug Abuse Patient Records regulations: The Federal rules restrict any use of the information to criminally investigate or prosecute any alcohol or drug abuse patient.[facility] Goals (unrecognized section and content) Goals may be documented in a n alternate sectionGoals may be documented in an alternate sectionGoals may be documented in an alternate sectionGoals may be documented in an alternate sectionGoals may be documented in an alternate sectionGoals may be documented in an alternate sectionGoals may be documented in an alternate sectionGoals may be documented in an alternate section Care Teams (unrecognized sec tion and content) Team Status: Active Member Role Status Dates Dr. Fara Bernal DO Family Provider Active Dr. Fara Bernal DO Primary Care Provider Active Team Status: Active Member Role Status Dates Dr. Fara Bernal DO Primary Care Provider Active Dr. Galdino Figueroa MD Attending Provider Active Yesica ROSSI PA Referring Provider Active Team Status: Inactive Member Role Status Dates Dr. Fara Bernal DO Primary Care Provider, Referring P rovider Active Dr. Galdino Figueroa MD Active Jackie ROSSI PA Attending Provider Active Team Status: Active Member Role Status Dates Dr. Fara Bernal DO Primary Care Provider Active Dr. Galdino Figueroa MD Attending Provider Active Team Status: Inactive Member Role Status Dates Dr. Fara Bernal DO Primary Care Provider Active Yesica ROSSI, PA Attending Provider, Referr ing Provider Active Team Status: Inactive Member Role Status Dates Dr. Fara Bernal DO Primary Care Provider Active Dr. Willie You MD Attending Provider Active Team Status: Inactive Member Role Status Dates Dr. Fara Bernal DO Primary Care Provider, Referring P rovider Active FLO Pepper Attending Provider Active Team Status: Inactive Member Role Status Dates Dr. Fara Bernal DO Primary Care Provider Active Dr. Elma Levi MD Attending Provider, Referring P rovider Active Team Status: Inactive Member Role Status Dates Dr. Fara Bernal DO Primary Care Provider Active Dr. Nick Harris MD Attending Provid er, Referring Provider, Emergency Provider Active Team Status: Active Member Role Status Dates Dr. Fara Bernal DO Primary Care Provider Active Kaden Gardiner MD Emergency Provider Active Dr. Myla Lopez MD Admit Provider, Attending Provider, Referring Provider Active Team Status: Active Member Role Status Dates Dr. Fara Bernal DO Primary Care Provider Active Dr. Sheng Pritchard MD Attending Provider Active Team Status: Active Member Role Status Dates Dr. Fara Bernal DO Primary Care Provider Active Kaden Gardiner MD Emergency Provider Active Dr. Myla Lopez MD Admit Provider, Referring Provider, Other Provider Active Dr. Sheng Pritchard MD Other Provider Active Dr. Ellen Conway MD Attending Provider, Other Prov ider Active Team Status: Active Member Role Status Dates Dr. Fara Bernal DO Primary Care Provider Active Kaden Gardiner MD Emergency Provider Active Dr. Myla Lopez MD Admit Provider, Referring Provider, Other Provider Active Dr. Sheng Pritchard MD Attending Provider, Other Provide r Active Dr. Ellen Conway MD Other Provider Active Team Status: Inactive Member Role Status Dates Dr. Fara Bernal DO Primary Care Provider Active Kaden Gardiner MD Emergency Provider Active Dr. Myla Lopez MD Admit Provider, Referring Provider, Other Provider Active Dr. Sheng Pritchard MD Other Provider Active Dr. Ellen Conway MD Attending Provider Active Team Status: Active Member Role Status Dates Dr. Fara Bernal DO Family Provider Active Janneth Arellano NP-C Primary Care Provider Active Team Status: Active Member Role Status Dates Dr. Fara Bernal DO Primary Care Provider Active Kaden Gardiner MD Emergency Provider Active Dr. Myla Lopez MD Admit Provider, Other Provider Active Dr. Sheng Pritchard MD Other Provider Active Dr. Ellen Conway MD Attending Provider, Other Prov ider Active Team Status: Inactive Member Role Status Dates Janneth Arellano POURED WALL FOREMAN-C Primary Care Provider, Attending P rovider Active Team Status: Inactive Member Role Status Dates Dr. Fara Bernal DO Primary Care Provider, Referring P rovider Active Renée Keenan POURED WALL FOREMAN, POURED WALL FOREMAN-C Attending Provider Active Team Status: Inactive Member Role Status Dates Janneth Arellano NP-C Primary Care Provider, Referring P rovider Active Josh ROSSI PA Attending Provider Active Team Status: Inactive Member Role Status Dates Janneth Arellano POURED WALL FOREMAN-C Primary Care Provider Active Josh ROSSI PA Attending Provider, Referring Provi altagracia Active Team Status: Inactive Member Role Status Dates Dr. Fara Bernal DO Primary Care Provider, Referring P rovider Active Girma Conley MD Attending Provider Active Team Status: Active Member Role Status Dates Dr. Fara Bernal DO Primary Care Provider Active Girma Conley MD Attending Provider, Referring Prov ider Active Team Status: Inactive Member Role Status Dates Dr. Fara Bernal DO Primary Care Provider Active Girma Conley MD Attending Provider, Referring Prov ider Active Team Status: Inactive Member Role Status Dates Dr. Fara Bernal DO Primary Care Provider Active Start: April 19, 2024 End: April 19, 2024 Dr. Fara Bernal DO Referring Provider Active St art: April 19, 2024 End: April 19, 2024 Yesica Narvaez PA, PA Attending Provider Active Start: April 19, 2024 End: April 19, 2024 Team Status: Inactive Member Role Status Dates Dr. Fara Bernal DO Primary Care Provider Active Start: May 21, 2024 End: May 21, 2024 Dr. Fara Bernal DO Referring Provider Active St art: May 21, 2024 End: May 21, 2024 Alonso ROSSI PA Attending Provider Active Start: May 21, 2024 End: May 21, 2024 Team Status: Inactive Member Role Status Dates Dr. Fara Bernal DO Primary Care Provider Active Start: May 21, 2024 End: May 21, 2024 Alonso ROSSI PA Attending Provider Active Start: May 21, 2024 End: May 21, 2024 Alonso ROSSI PA Referring Provider Active Start: May 21, 2024 End: May 21, 2024 Team Status: Inactive Member Role Status Dates Dr. Fara Bernal DO Primary Care Provider Active Start: May 23, 2024 End: May 23, 2024 FLO Montilla Attending Provider Active Star t: May 23, 2024 End: May 23, 2024 Yesica Narvaez PA, PA Referring Provider Active Start: May 23, 2024 End: May 23, 2024 Team Status: Active Member Role/Relationship Status Dates Dr. Fara Bernal DO Primary Care Provider Active Team Status: Inactive Member Role/Relationship Status Dates Dr. Fara Bernal DO Primary Care Provider Active Start: October 08, 2024 End: October 08, 2024 Dr. Fara Bernal DO Referring Provider Active St art: October 08, 2024 End: October 08, 2024 FLO Montilla Attending Provider Active Ranjeet t: October 08, 2024 End: October 08, 2024 INFORMATION SOURCE (unrecogn ized section and content) DATE CREATED AUTHOR 10/12/2024 [facility] FOR RECORDS PERTAINING TO PATIENTS WHO [...] BE BASED ON THE PRIMARY CLINICAL RECORDS. [facility] [employer] provides no warranty or guarantee of the accuracy or completeness of information in this document.
[2024-10-14 14:52] VITALS: BP 145/87; PULSE 85
== END 2024-10-14 14:54 | disposition home or self-care (01) ==
PROVIDERS: Emergency Provider Emergency Medicine; PCP Family Medicine; Visit Provider Emergency Medicine
DX: S20.211A Contusion of right front wall of thorax, initial encounter (principal); I11.0 Hypertensive heart disease with heart failure; I50.32 Chronic diastolic (congestive) heart failure; I48.0 Paroxysmal atrial fibrillation; E11.9 Type 2 diabetes mellitus without complications; Z79.4 Long term (current) use of insulin; S60.211A Contusion of right wrist, initial encounter; W01.0XXA Fall on same level from slipping, tripping and stumbling without subsequent striking against object, initial encounter; I25.10 Atherosclerotic heart disease of native coronary artery without angina pectoris; I25.2 Old myocardial infarction; Z79.01 Long term (current) use of anticoagulants; Z79.84 Long term (current) use of oral hypoglycemic drugs; Z79.899 Other long term (current) drug therapy
CPT/HCPCS: 71046; 73110; 99282